=== PATIENT | male | born 1955 | race African-American/Black ===

== ENCOUNTER 2018-01-04 15:28 | Emergency (ER) | payer BC, SELFPAY ==
[2018-01-04 15:28] VITALS: BP 116/76; PULSE 89; RESP 17; TEMP 36.9; O2SAT 99; BMI 24.3
--- NOTE | 2018-01-04 15:42 | ED.VISSUMM ---
- ER Visit Summary Date of Service: 01/04/18 Chief Complaint: Bilateral low back pain History of Present Illness: The patient is a 62 M who presents with bilateral low back pain that started 3 days ago. He states he was lifting pig let us . He denies any bowel bladder dysfunction. He denies saddle anesthesia or paresthesia. He denies foot drop. He denies quadricep weakness going up or down steps. He denies any GI symptoms. He does have history of elevated PSA. He states he does not have prostate cancer. He denies any radicular pain. Please read written note for complete detail Physical Examination: Patient appears in no discomfort. Having him rise from supine to sitting position cause and discomfort and there is hesitation. HEENT exam is unremarkable. Heart is regular without murmur, gallop or rub. S1 and S2 are normal. Lungs are clear to auscultation with good movement of air bilaterally. Abdomen is soft nontender with no palpable cell mass abdominal bruit. Femoral, DP and PT pulses are palpable and symmetric. EHL is intact. Patella and ankle reflex are symmetric with no clonus or Babinski sign. Normal perianal sensation. He has reproducible bilateral low back pain, lumbar sacral region. Straight leg test is negative. Test Results: None are indicated Emergency Department Course and Treatment: Patient was treated with Naprosyn. He asked if x-rays were indicated. He was informed since there is no history of trauma and he reports symptoms for only 3 days based on literature radiologic imaging is not indicated. He was told if he had a history of prostate cancer imaging would be indicated as well as blood tests. Treatment Plan: Prescription for Naprosyn and follow-up with Dr. Shell if no improvement in 5-7 days Disposition: Discharged to home Impression: Acute bilateral lumbar sacral strain secondary to lifting This note was generated with [employer] dictation software. It may contain incorrect words, spelling, and punctuation that were not noted in review of the chart prior to signing ED Disposition - Plan for ED Patient: Disposition: Home or Assisted Living Chief Complaint: Back Instructions: ED Sprain Strain Lumbar Prescriptions: Naproxen [Naprosyn] 500 mg PO BID #14 tab Referrals: Carli Shell MD [Primary Care Provider] - 1 Week if not improving
[2018-01-04] MEDS: Naproxen 250 MG Tablet 500 MG PO (15:54)
== END 2018-01-04 15:55 | disposition home or self-care (01) ==
PROVIDERS: Emergency Provider Emergency Medicine; Family Provider Internal Medicine; PCP Internal Medicine
DX: S39.012A Strain of muscle, fascia and tendon of lower back, initial encounter (principal); X50.9XXA Other and unspecified overexertion or strenuous movements or postures, initial encounter; Y93.9 Activity, unspecified; Y92.9 Unspecified place or not applicable; I10 Essential (primary) hypertension; E78.00 Pure hypercholesterolemia, unspecified; N40.0 Benign prostatic hyperplasia without lower urinary tract symptoms; Z79.899 Other long term (current) drug therapy; Z72.0 Tobacco use
CPT/HCPCS: 99283

== ENCOUNTER 2018-04-20 07:54 | Emergency (ER) | payer BC, SELFPAY ==
[2018-04-20 07:55] VITALS: PULSE 86; RESP 20; TEMP 37.3; O2SAT 99; BMI 24.3
--- NOTE | 2018-04-20 08:05 | RAD_ITS ---
STUDY: X-RAY - RIGHT KNEE REASON FOR EXAM: Male, 62 years old. Pain since Friday. No known injury. TECHNIQUE: 4 view(s) of the knee. COMPARISON: None. FINDINGS: Normal visualized distal femur. Normal visualized proximal tibia and fibula. Normal proximal tibiofibular articulation. There is mild degenerative arthrosis of the medial femorotibial compartment. Chondrocalcinosis of the medial meniscus. Normal lateral femorotibial compartment. Normal patellofemoral articulation. There are atherosclerotic calcifications. Small joint effusion. RAD/Knee 4 or More Views IMPRESSION: Degenerative arthrosis. Chondrocalcinosis of the medial meniscus. Joint effusion. Electronically Signed: Tristan Gipson MD at 9:01 EDT Tel [phone], Service support ,
[2018-04-20] MEDS: Naproxen 250 MG Tablet 500 MG PO (08:43)
[2018-04-20] MEDS: Triamcinolone Acetonide 40 MG/ML Vial IM (08:46)
[2018-04-20] MEDS: Bupivacaine Mpf 0.5% 30 ML VIAL 10 ML INFILT (08:46)
--- NOTE | 2018-04-20 08:56 | ED.DCSUM_ITS ---
- ER Visit Summary Date of Service: 04/20/18 Chief Complaint: Right knee pain History of Present Illness: The patient is a 62 M presents to the emergency department with 2 days of worsening right knee pain. Patient states he was playing basketball about a week ago. He states that he twisted his ankle. He states that he was babying it. He states he been walking different and began to have some swelling in his right knee. He states over the past 2 days, the swelling and pain is gotten worse. He denies any fevers or chills. He denies any trauma. He does have a history of arthritis. He denies any history of diabetes. Physical Examination: Exam is relatively unremarkable. Patient does have a small effusion of the right knee. Extension and flexion are preserved. The skin is not tense. There is no erythema. There is no cellulitis. Pulses are normal. There is no evidence of septic joint. Test Results: [] Emergency Department Course and Treatment: The patient underwent plain films which demonstrate some arthritis of the knee with a small effusion. I did feel that arthrocentesis with Kenalog and bupivacaine injection we will treat his pain most effectively. The area was prepped in a sterile fashion. I did inject a small amount of bupivacaine into the skin. 18-gauge needle was inserted laterally into the joint space. Fluid was aspirated. There was about 2 cc of blood-tinged synovial fluid. There was no purulence. Strength test was normal. Patient was then injected with 5 cc of a combination of bupivacaine and 40 mg of Kenalog. Within 2 minutes, he had complete resolution of his pain. Grant wrap is placed. At this time, due to the patient is safe for discharge. He will be given outpatient follow-up with orthopedics. Treatment Plan: [] Disposition: [] Impression: 1. Right knee arthritis with effusion 2. Arthrocentesis This note was generated with [employer] dictation software. It may contain incorrect words, spelling, and punctuation that were not noted in review of the chart prior to signing ED Disposition - Plan for ED Patient: Chief Complaint: Lower Extremity Injury Instructions: ED Effusion Knee Prescriptions: Naproxen [Naprosyn] 500 mg PO BID PRN #20 tab Referrals: Boom Winter DO [STAFF PHYSICIAN] -
== END 2018-04-20 09:10 | disposition home or self-care (01) ==
PROVIDERS: Emergency Provider Emergency Medicine; Family Provider Internal Medicine; PCP Internal Medicine
DX: M13.861 Other specified arthritis, right knee (principal); M25.461 Effusion, right knee; I10 Essential (primary) hypertension; E78.00 Pure hypercholesterolemia, unspecified; Z72.0 Tobacco use
CPT/HCPCS: 20610; 73564; 99283

== ENCOUNTER 2018-11-14 20:31 | Emergency (ER) | payer BC, SELFPAY ==
[2018-11-14 20:32] VITALS: BP 138/76; PULSE 93; RESP 18; TEMP 36.6; O2SAT 94; BMI 24.7
--- NOTE | 2018-11-14 20:44 | EKG12_ITS ---
Test Reason : CP/SOB Blood Pressure : / mmHG Vent. Rate : 089 BPM Atrial Rate : 089 BPM P-R Int : 116 ms QRS Dur : 100 ms QT Int : 364 ms P-R-T Axes : 059 049 028 degrees QTc Int : 442 ms Normal sinus rhythm Incomplete right bundle branch block Borderline ECG Confirmed by WAN ESCALANTE, BREONNA ([id number]), international editorial producer TIFF SIERRA ([id number]) on 11/25/2018 1:52:20 PM Referred By: NONI Confirmed By:BREONNA BLAS MD
--- NOTE | 2018-11-14 20:44 | RAD_ITS ---
STUDY: X-RAY CHEST REASON FOR EXAM: Male, 63 years old. Cough. TECHNIQUE: PA and lateral views of the chest. COMPARISON: January 22, 2011 FINDINGS: There is no new focal consolidation. The lungs remain hyperinflated. Normal size heart. Normal mediastinum and lalo. Normal visualized pulmonary arteries. There is atherosclerotic calcification of the aortic arch with tortuosity. Normal visualized thoracic spine. Normal visualized ribs, clavicles, and shoulders. There is no demonstrated abnormality of the visualized soft tissue structures of the upper abdomen. RAD/Chest PA and Lateral IMPRESSION: Stable examination demonstrating no acute cardiopulmonary process. Electronically Signed: Kylie Moya MD at 22:03 EDT Tel , Service support ,
[2018-11-14] MEDS: Albuterol 2.5 MG/3 ML VIAL.NEB. INHALATION (20:53)
[2018-11-14 20:54] VITALS: PULSE 84; RESP 16
--- NOTE | 2018-11-14 20:59 | ED.VIS.GEN ---
History of Present Illness Chief Complaint: Shortness of Breath Informant: Patient Onset: Days - Onset 3 days ago Context: Sudden Onset Timing: Continuous Quality: Patient also reports upper central sharp chest discomfort Location: Respiratory and chest Current Severity: Mild Maximum Severity: Moderate Worsened by: Nothing Relieved by: Nothing Associated Symptoms: Myalgias, runny nose, throat pain and nonproductive cough Narrative: Patient is a 63-year-old male who presents with runny nose, sore throat nonproductive cough for the past 3-4 days. He can planes of dyspnea at rest and with activity. His chest discomfort is not positional nor is it related to activity or change in position. Patient denies any history of blood clot in the leg or lung. Patient denies leg pain, swelling discoloration. Patient denies history of coronary disease. Patient denies history of peptic ulcer disease or reflux. Patient did not receive influenza vaccine this year Prior similar symptoms: No Recent Illness/Hospitalization: No Past Medical History - Allergies and Home Meds Allergies/Adverse Reactions: Allergies No Known Allergies Allergy (Verified 11/14/18 20:32) Primary Care Physician: Carli Shell MD [Primary Care Provider] - Prior records reviewed: Yes Surgical History: no surgical history Lives: Spouse/ Significant Other Smoking Status: Current every day smoker Alcohol: None Drugs: None Review of Systems General: Reports: Chills, Fever, Subjective. Denies: Sweats, Weight loss Eyes: Denies: Visual changes - bilaterally, Blurred Vision - bilaterally, Diplopia ENT: Reports: Rhinorrhea, Sore throat. Denies: Bilateral ear pain Cardiovascular: Reports: Chest pain. Denies: Palpitations, Heart racing Respiratory: Reports: Dyspnea - Groups, Cough, Dyspnea on exertion. Denies: Sputum, Orthopnea, Paroxysmal nocturnal dyspnea Gastrointestinal: Denies: Abdominal pain, Nausea, Vomiting, Diarrhea, Melena, Hematochezia Genitourinary: Denies: Dysuria, Hematuria, Frequency Musculoskeletal: Reports: Myalgias. Denies: Arthralgias, Neck pain, Back pain, Swelling Skin: Denies: Rash, Wounds Neurological: Denies: Headache, Weakness, Numbness Allergy: Denies: Uticaria, Swelling of the mouth - Positive pain Physical Exam Vital Signs/Narrative: Vital Signs Temp Pulse Resp BP Pulse Ox 11/14/18 20:54 84 16 11/14/18 20:32 97.9 F 93 18 138/76 H 94 Inital Vital Signs reviewed: Yes General: Well nourished, Well developed, No Acute Distress Head: Normocephalic, Atraumatic Eyes: Perrl, EOMI. Negative for: Pale conjunctiva, Scleral icterus, - ENT: Moist mucous membranes, TM's clear, Nasal congestion. Negative for: No rhinorrhea Neck: Supple, Nontender, No lymphadenopathy, No JVD Cardiovascular: Regular rate, Regular rhythm, No murmurs, Normal S1 Respiratory: No distress, Chest nontender, Wheezing, Decreased Air Movement - Increased expiratory phase. Abdomen: Soft, Nontender, Nondistended, Normal bowel sounds, No masses Back: Nontender, Normal Inspection Extremities: Nontender, No edema Skin: Normal color, No rash. Negative for: Cyanosis Neurological: Alert, Oriented x3, Cranial nerves II-XII grossly intact, Normal Strength, Normal Sensation Psychological: Normal affect, Normal Mood Diagnostic/Tx/Re-eval Chest X-Ray - ED: 2 View, Normal, Heart, Mediastinum, Bony Structures, No Acute Disease, Chronic Changes 11/14/18 20:44 Chest PA and Lateral [RAD] Stat 11/14/18 20:50 Mucosa - Nose Influenza Types A,B Direct FA (RAN) - Final Laboratory Results 11/14/18 11/14/18 21:10 21:10 WBC 5.3 RBC 3.90 L Hgb 13.0 Hct 38.5 L MCV 98.7 H MCH 33.3 H MCHC 33.8 RDW 12.3 RDW Differential 44.8 H Plt Count 212 MPV 10.2 Immature Gran % (Auto) 0.400 Neut % (Auto) 38.1 L Lymph % (Auto) 52.7 H [place] % (Auto) 5.3 Eos % (Auto) 2.5 Baso % (Auto) 1.0 Absolute Neuts (auto) 2.0 Absolute Lymphs (auto) 2.77 Total Counted Not Reportable Sodium 151 H Potassium 3.4 L Chloride 117 H Carbon Dioxide 26.0 Anion Gap 8 BUN 15 Creatinine 0.85 Estim Creat Clear Calc 84.94 Est GFR (MDRD) Af Amer 117 Est GFR (MDRD) Non-Af 96 BUN/Creatinine Ratio 17.6 Glucose 138 H Calcium 8.5 - Medical Decision Making Patient was treated with albuterol aerosol treatment. Chest x-ray was obtained to evaluate for pneumonia. Rapid blood work was obtained to risk stratify patient in the event he has an infiltrate noted on x-ray. With complaints of myalgias and rhinorrhea influenza rapid screen was obtained. This is no evidence of will treat with inhaler and prednisone. ED Disposition - Plan for ED Patient: Disposition: Home or Assisted Living Diagnosis: Bronchitis, acute, with bronchospasm Instructions: ED Bronchitis Asthmatic Prescriptions: Albuterol Inhaler [Ventolin Hfa] 2 puff INHALATION Q4H PRN PRN #1 inhaler PRN Reason: Wheezing Prednisone [Deltasone] 40 mg PO DAILY #10 tab Referrals: Carli Shell MD [Primary Care Provider] - 5-7 Days
[2018-11-14 21:04] VITALS: PULSE 84; RESP 20; O2SAT 95
[2018-11-14 21:21] LABS: Absolute Lymphocyte Count 2.77 X10^3/ul (0.83-4.51); Basophil# 0.05 X10^3/uL; Eosinophil# 0.13 X10^3/uL; Eosinophils% 2.5 % (0-5); Hematocrit 38.5 % (40-54); Lymphocyte # 2.77 X10^3/ul (4.0); Lymphocyte % 52.7 % (19-41); Mean Corp Hgb Conc 33.8 g/gl (32-36); Mean Corpuscular Hgb 33.3 pg (27.0-32.0); Mean Corpuscular Volume 98.7 fL (80-94); Mean Platelet Vol. 10.2 fl (6.2-12.0); Monocyte# 0.28 X10^3/uL; Monocyte% 5.3 % (0-10); Neutrophil # 2.01 X10^3/uL (2.7-7.7); Neutrophil % 38.1 % (47-70); Platelet Count 212 K/mm3 (150-450); RBC Distribution Width CV 12.3 % (11.6-14.6); RBC Distribution Width SD 44.8 fl (35.1-43.9); White Blood Count 5.3 K/mm3 (4.4-11.0)
[2018-11-14 21:22] LABS: POSITIVE COUNT NO; POSITIVE DIFFERENTIAL NO; POSITIVE MORPHOLOGY NO
[2018-11-14 21:33] LABS: Anion Gap 8 (5-15); BUN 15 mg/dL (7-18); BUN/Creat Ratio 17.6 RATIO (10-20); Calcium,Total 8.5 mg/dL (8.5-10.1); Chloride 117 mmol/L (98-107); Creatinine, Serum 0.85 mg/dL (0.70-1.30); EST Glomerular Filtration Rate 96 mL/min (>60); Est Glom Filt Rate - Afr Amer 117 mL/min (>60); Estimated Creatinine Clearance 84.94 ml/min; Glucose 138 mg/dL (74-106); Potassium 3.4 mmol/L (3.5-5.1); Sodium Level 151 mmol/L (136-145)
[2018-11-14 22:01] VITALS: PULSE 85; O2SAT 100
[2018-11-14] MEDS: predniSONE 20 MG Tablet 60 MG PO (22:08)
== END 2018-11-14 22:11 | disposition home or self-care (01) ==
PROVIDERS: Emergency Provider Emergency Medicine; Family Provider Internal Medicine; PCP Internal Medicine
DX: J20.9 Acute bronchitis, unspecified (principal); F17.200 Nicotine dependence, unspecified, uncomplicated
CPT/HCPCS: 71046; 80048; 85025; 87804; 93005; 94640; 99285; A4216

== ENCOUNTER 2019-01-25 12:06 | Emergency (ER) | payer BC, SELFPAY ==
[2019-01-25 12:06] VITALS: BP 157/103; PULSE 89; RESP 17; TEMP 37.2; O2SAT 98; BMI 23.8
[2019-01-25 12:45] VITALS: BP 162/81; PULSE 80; RESP 23; O2SAT 95
--- NOTE | 2019-01-25 13:37 | CT_ITS ---
STUDY: CT BRAIN WITHOUT CONTRAST REASON FOR EXAM: Male, 63 years old. Head injury, fell 2 days ago, nausea/vomiting since yesterday, blurred vision and dizziness today. Hx hypertension. RADIATION DOSAGE (If Supplied By Facility): CTDIvol = ( 60.81 ) mGy, DLP = ( 1158.30 ) mGycm TECHNIQUE: Transaxial CT imaging of the brain was performed without administration of intravenous contrast material. Individualized dose optimization techniques were used for this CT. COMPARISON: None. FINDINGS: There are multiple small areas of focal hyperdensities with surrounding hypodensity at the left occipital lobe the largest measures up to 1.0 cm. There is a 3 mm thick hyperdensity along the tentorial leaflets as well. In the setting trauma, findings are consistent with contusions and subdural hematoma. There is cerebral atrophy with widening of the extra-axial spaces and ventricular dilatation. There are areas of decreased attenuation within the white matter tracts of the supratentorial brain, consistent with microvascular disease changes. There are no findings of an acute ischemic infarction. Normal soft tissue structures. Normal visualized paranasal sinuses. CT/Brain/Head without Contrast IMPRESSION: Findings consistent with left occipital contusions and minimal tentorial subdural hematoma. Follow-up to resolution is recommended. N.B. : The above information has been verbally conveyed by Tisha Ng MD to Dr. Vidal Abebe MD, on 01/25/2019 15:22:20 (ET). Electronically Signed: Tisha Ng MD at 14:32 EDT Tel , Service support ,
--- NOTE | 2019-01-25 13:39 | ED.VISSUMM ---
- ER Visit Summary Date of Service: 01/25/19 Chief Complaint: Fall with recent head injury History of Present Illness: The patient is a 63 M history of hypertension and Paget's disease. Patient fell on Friday he has had against the wall at home. No LOC. He is on no blood thinners. For the mild headache the last several days. Nausea and vomiting x1 on Friday. He denies any other injuries. No neck pain. No numbness or weakness to his upper or lower extremities. Physical Examination: Older male no acute distress vital signs stable afebrile. HEENT exam is a small contusion left posterior septal region of the scalp. No laceration. No bleeding. Pupils round reactive light. No dental injury or facial injury. Neck nontender. Trachea midline. Lungs clear to auscultation. Heart rate rhythm no murmur rate about 80. Chest wall nontender. Abdomen soft and nontender. Normal bowel sounds no peritoneal signs. Pelvic girdle intact. Extremities moves all 4. Neurovascularly intact. Extremities are nontender no deformity. Equal symmetrical tool worker strength. Dorsi plantarflexion intact. Back is nontender. Neurologically is awake and alert. He is moving all 4 extremities. He is answering questions and following commands. He has normal speech. Test Results: CBC with a white count of 9 point chemistries unremarkable normal creatinine gap. PT/INR pending. CT of the patient's brain shows a left occipital cerebral contusion and subdural hematoma. No shift. Left occipital skull fracture along with chronic changes secondary to Paget's disease. Reviewed by me read by the radiologist. CT C-spine shows no acute fracture. Emergency Department Course and Treatment: The patient's headache, head injury and nausea vomiting obtain CT of the brain. I am checking screening labs due to his history of excessive alcohol consumption. Treatment Plan: Repeat exam patient is doing well at 1545 PM. I discussed with both he and his family his CAT scan results and need to transfer to trauma center. He will be sent to [facility]. Awaiting to talk to them. Disposition: I have already spoken to [facility] and the patient be sent up there is a trauma. Impression: Acute fall with head injury Acute traumatic intracranial bleed Acute left-sided occipital skull fracture This note was generated with [employer] dictation software. It may contain incorrect words, spelling, and punctuation that were not noted in review of the chart prior to signing ED Disposition - Plan for ED Patient: Referrals: Carli Shell MD [Primary Care Provider] -
[2019-01-25] MEDS: Acetaminophen 325 MG Tablet 650 MG PO (13:49)
[2019-01-25 14:06] LABS: Absolute Lymphocyte Count 1.63 X10^3/ul (0.83-4.51); Absolute Neutrophil Count 6.6 X10^3/uL (2.0-7.7); Basophil# 0.03 X10^3/uL; Basophil% 0.3 % (0-1); Eosinophils% 1.1 % (0-5); Hematocrit 40.1 % (40-54); Hemoglobin 13.6 g/dl (13.0-16.5); Lymphocyte # 1.63 X10^3/ul (4.0); Lymphocyte % 17.9 % (19-41); Mean Corp Hgb Conc 33.9 g/gl (32-36); Mean Corpuscular Hgb 33.4 pg (27.0-32.0); Mean Corpuscular Volume 98.5 fL (80-94); Mean Platelet Vol. 10.2 fl (6.2-12.0); Monocyte% 7.7 % (0-10); Neutrophil % 72.7 % (47-70); Platelet Count 178 K/mm3 (150-450); RBC Distribution Width CV 12.1 % (11.6-14.6); RBC Distribution Width SD 42.3 fl (35.1-43.9); Red Blood Count 4.07 M/mm3 (4.6-6.2); White Blood Count 9.1 K/mm3 (4.4-11.0)
[2019-01-25 14:10] LABS: POSITIVE COUNT NO; POSITIVE DIFFERENTIAL NO; POSITIVE MORPHOLOGY NO
[2019-01-25 14:14] LABS: Anion Gap 8 (5-15); BUN 19 mg/dL (7-18); BUN/Creat Ratio 20.9 RATIO (10-20); Calcium,Total 8.8 mg/dL (8.5-10.1); Chloride 104 mmol/L (98-107); Creatinine, Serum 0.91 mg/dL (0.70-1.30); EST Glomerular Filtration Rate 89 mL/min (>60); Est Glom Filt Rate - Afr Amer 108 mL/min (>60); Estimated Creatinine Clearance 79.34 ml/min; Glucose 94 mg/dL (74-106); Sodium Level 137 mmol/L (136-145)
[2019-01-25 14:33] VITALS: BP 159/85; PULSE 69; RESP 21; O2SAT 97
--- NOTE | 2019-01-25 15:40 | CT_ITS ---
STUDY: CT CERVICAL SPINE WITHOUT CONTRAST REASON FOR EXAM: Male, 63 years old. Fell 2 days ago and hit left side of head RADIATION DOSAGE (If Supplied By Facility): CTDIvol = ( 26.87 ) mGy, DLP = ( 647.97 ) mGycm TECHNIQUE: High resolution transaxial imaging was performed without contrast material. Sagittal and coronal images were reconstructed. Individualized dose optimization techniques were used for this CT. COMPARISON: None FINDINGS: Normal craniovertebral junction. Degenerative changes are present involving the atlantodental articulation. Normal odontoid process. Normal alignment. Diffuse degenerative disease is present. No acute fractures or dislocations of the cervical spine are seen. Carotid calcifications. A fracture of the left occipital bone is present, better seen on concomitant head CT. Probable Paget disease of the posterior calvarium. CT/Spine Cervical without Contras IMPRESSION: A fracture of the left occipital bone is present, better seen on concomitant head CT. No acute osseous injury is evident involving the cervical spine. Comment: MRI is more sensitive than CT in detecting cord injury, ligament injury, and epidural hematoma. If there is continued clinical concern for any of these entities, MRI correlation should be considered if possible. N.B. : The above information has been verbally conveyed by Joselito Montenegro MD to Dr. Vidal Abebe MD, on 01/25/2019 16:31:24 (ET). Electronically Signed: Joselito Montenegro MD at 16:17 EDT Tel , Service support ,
[2019-01-25 15:41] VITALS: BP 168/87; PULSE 68; RESP 24; O2SAT 96
[2019-01-25 16:08] LABS: International Normalized Ratio 1.1; Prothrombin Time (Protime)PT. 13.8 SECONDS (11.7-14.9)
--- NOTE | 2019-01-25 17:37 | ED.RN ---
[facility] CARE HERE TO TRANSPORT PATIENT, REPORT AND CARE TO THEM, PT STATUS UNCHANGED AT THIS TIME.
[2019-01-25 17:51] VITALS: BP 159/90; PULSE 67; RESP 28; O2SAT 96
== END 2019-01-25 17:53 | disposition short-term general hospital (02) ==
PROVIDERS: Emergency Provider Emergency Medicine; Family Provider Internal Medicine; PCP Internal Medicine
DX: S06.309A Unspecified focal traumatic brain injury with loss of consciousness of unspecified duration, initial encounter (principal); S02.119A Unspecified fracture of occiput, initial encounter for closed fracture; W13.8XXA Fall from, out of or through other building or structure, initial encounter; Y93.9 Activity, unspecified; Y92.009 Unspecified place in unspecified non-institutional (private) residence as the place of occurrence of the external cause; Y99.9 Unspecified external cause status; I10 Essential (primary) hypertension; Z72.0 Tobacco use
CPT/HCPCS: 70450; 72125; 80048; 85025; 85610; 99284; A4216

== ENCOUNTER 2019-05-02 10:29 | Emergency (ER) | payer MEDICAID, SELFPAY ==
[2019-05-02 10:30] VITALS: BP 113/78; PULSE 80; RESP 17; TEMP 37; O2SAT 98; BMI 24.0
--- NOTE | 2019-05-02 10:40 | RAD_ITS ---
STUDY: X-RAY CHEST REASON FOR EXAM: Male, 63 years old. Cough x 1 week. Pain with coughing. TECHNIQUE: PA and lateral views of the chest. COMPARISON: PA and lateral chest x-ray November 14, 2018. FINDINGS: The lungs are clear and deeply expanded. There is prominence of the retrosternal airspace, and an element of obstructive pulmonary disease could be present. There is no demonstrated pleural abnormality. Normal size heart. Normal mediastinum and lalo. Normal visualized pulmonary arteries. There is atherosclerotic calcification of the aortic arch and descending thoracic aorta. There are L2 level minor degenerative changes of the visualized thoracic spine and a slight thoracic levoscoliosis. Normal visualized ribs, clavicles, and shoulders. There is no demonstrated abnormality of the visualized soft tissue structures of the upper abdomen. RAD/Chest PA and Lateral IMPRESSION: Possible obstructive pulmonary disease. No acute infiltrate or CHF. Electronically Signed: Octavio Nieves MD at 12:18 EDT , Service support ,
--- NOTE | 2019-05-02 10:42 | ED.VISSUMM ---
- ER Visit Summary Date of Service: 05/02/19 Chief Complaint: Cough History of Present Illness: The patient is a 63 M the emergency department with a one-week history of cough. He states it started off with a runny nose slight cough and as its progressed he states that he is a very deep cough. He states he cannot get any phlegm up. His chest is become sore due to the coughing. He reports the chest is tender to palpation and coughing and movement makes it worse. He denies any fevers but does note generalized myalgias chills and sweats. No vomiting. He does endorse diarrhea. He is a long-term smoker. He denies any prior diagnoses of COPD. Physical Examination: Afebrile vital signs are stable Gen: Well-nourished well-developed Head: Normocephalic atraumatic Eyes: Perrl EOMI ENT: TMs clear turbinate edema moist mucous membranes Neck: Supple no lymphadenopathy no JVD nontender CVS: Regular rate rhythm no murmurs normal S1-S2 Respiratory: No distress bilateral lower lung johnson demonstrate rhonchi and faint expiratory wheeze chest nontender Abdomen: Soft nontender nondistended normal bowel sounds no masses Back: Nontender Extremity: Nontender no edema Skin: Normal color no rash Neuro: alert orientated ?3 CN II-XII intact normal strength sensation Psych: Normal affect normal mood Test Results: Chest x-rays obtained. No consolidation was noted Emergency Department Course and Treatment: Patient received a DuoNeb. The patient reports significant improvement in his cough and his breathing. His lung sounds are not clear. He is a long-term smoker shows chronic changes in his chest x-ray. I will place him on prednisone albuterol MDI and azithromycin. He was advised that he may start to get bronchitis more often he should talk to his doctor about chronic bronchitis. He should quit smoking. Impression: 1. Acute bronchitis with bronchospasm This note was generated with [employer] dictation software. It may contain incorrect words, spelling, and punctuation that were not noted in review of the chart prior to signing ED Disposition - Plan for ED Patient: Disposition: Home or Assisted Living Instructions: BRONCHITIS with Wheezing (Adult) Prescriptions: Prednisone [Deltasone] 40 mg PO DAILY #10 tab Prescription Printed Albuterol Inhaler [Ventolin Hfa] 2 puff INHALATION Q4H PRN PRN #1 inhaler PRN Reason: Wheezing Prescription Printed Azithromycin [Zithromax Z-Kanu] 250 mg PO UD #1 box Prescription Printed Referrals: Carli Shell MD [Primary Care Provider] - 1 Week if not improving
[2019-05-02] MEDS: Ipratropium/Albuterol Sulfate 3 ML AMPUL.NEB INHALATION (10:47)
[2019-05-02 10:48] VITALS: PULSE 71; RESP 16
[2019-05-02 11:37] VITALS: O2SAT 97
== END 2019-05-02 11:38 | disposition home or self-care (01) ==
LOC: ED 11:30
PROVIDERS: Emergency Provider Emergency Medicine; Family Provider Internal Medicine; PCP Internal Medicine
DX: J20.9 Acute bronchitis, unspecified (principal); R19.7 Diarrhea, unspecified; I10 Essential (primary) hypertension; E78.00 Pure hypercholesterolemia, unspecified; Z72.0 Tobacco use
CPT/HCPCS: 71046; 94640; 99282

== ENCOUNTER → 2019-05-24 09:04 | Outpatient (CLI) | payer MEDICAID, SELFPAY ==
[2019-05-02 10:30] VITALS: BMI 24.0
[2019-05-24 10:14] LABS: Absolute Neutrophil Count 4.1 X10^3/uL (2.0-7.7); Basophil# 0.07 X10^3/uL; Basophil% 0.9 % (0-1); Eosinophil# 0.23 X10^3/uL; Eosinophils% 3.1 % (0-5); Hematocrit 46.1 % (40-54); Hemoglobin 15.3 g/dL (13.0-16.5); Lymphocyte % 32.5 % (19-41); Mean Corp Hgb Conc 33.2 g/dL (32-36); Mean Corpuscular Hgb 32.6 pg (27.0-32.0); Mean Corpuscular Volume 98.1 fL (80-94); Mean Platelet Vol. 10.5 fl (6.2-12.0); Monocyte# 0.54 X10^3/uL; Monocyte% 7.3 % (0-10); NRBC Flagged by Analyzer 0 % (0-5); Neutrophil # 4.12 X10^3/uL (2.7-7.7); Neutrophil % 55.8 % (47-70); Platelet Count 242 K/mm3 (150-450); RBC Distribution Width CV 11.9 % (11.6-14.6); RBC Distribution Width SD 43.8 fl (35.1-43.9); White Blood Count 7.4 K/mm3 (4.4-11.0)
== END ==
PROVIDERS: Family Provider Internal Medicine; PCP Internal Medicine; Referring Provider Specialist; Visit Provider Specialist
DX: J45.50 Severe persistent asthma, uncomplicated (principal); Z91.038 Other insect allergy status
CPT/HCPCS: 36415; 83520; 85025

== ENCOUNTER → 2019-10-12 08:43 | Outpatient (CLI) | payer MEDICARE, SELFPAY ==
[2019-10-12 10:05] LABS: PSA,Total- Diagnostic 2.51 ng/mL (0.0-4.0)
== END ==
PROVIDERS: PCP Internal Medicine; Referring Provider Urology; Visit Provider Urology
DX: R35.1 Nocturia (principal); E29.1 Testicular hypofunction; R97.20 Elevated prostate specific antigen [PSA]
CPT/HCPCS: 36415; 84153; 84403

== ENCOUNTER → 2019-12-15 12:20 | Outpatient (CLI) | payer MEDICARE, SELFPAY ==
[2019-12-15 13:53] LABS: Absolute Lymphocyte Count 2.51 X10^3/uL (0.83-4.51); Basophil# 0.05 X10^3/uL; Basophil% 0.5 % (0-1); Eosinophil# 0.04 X10^3/uL; Eosinophils% 0.4 % (0-5); Hematocrit 45.3 % (40-54); Hemoglobin 14.8 g/dL (13.0-16.5); Lymphocyte # 2.51 X10^3/ul (4.0); Lymphocyte % 27.1 % (19-41); Mean Corp Hgb Conc 32.7 g/dL (32-36); Mean Corpuscular Hgb 32.9 pg (27.0-32.0); Mean Corpuscular Volume 100.7 fL (80-94); Mean Platelet Vol. 10.7 fl (6.2-12.0); Monocyte# 0.61 X10^3/uL; Monocyte% 6.6 % (0-10); NRBC Flagged by Analyzer 0 % (0-5); Neutrophil # 5.99 X10^3/uL (2.7-7.7); Neutrophil % 64.8 % (47-70); Platelet Count 282 K/mm3 (150-450); RBC Distribution Width CV 12.1 % (11.6-14.6); RBC Distribution Width SD 45.4 fl (35.1-43.9); White Blood Count 9.3 K/mm3 (4.4-11.0)
[2019-12-15 14:12] LABS: AST(SGOT) 12 U/L (15-37); Alanine Aminotransfer ALT/SGPT 23 U/L (16-61); Albumin, Serum 3.6 g/dL (3.2-5.0); Alkaline Phosphatase 242 U/L (45-117); Anion Gap 8 (5-15); BUN 14 mg/dL (7-18); Calcium,Total 9.2 mg/dL (8.5-10.1); Chloride 106 mmol/L (98-107); Cholesterol 287 mg/dL (200); Creatinine, Serum 0.88 mg/dL (0.70-1.30); EST Glomerular Filtration Rate 93 mL/min (>60); Est Glom Filt Rate - Afr Amer 112 mL/min (>60); Globulin 3.6 g/dL (2.2-4.2); Glucose 92 mg/dL (74-106); High Density Lipoprotein 97 mg/dL; Potassium 4.1 mmol/L (3.5-5.1); Protein, Total 7.2 g/dL (6.4-8.2); Sodium Level 140 mmol/L (136-145); Triglycerides 98 mg/dL; Very Low Density Lipoprotein 20 mg/dL (5-40)
== END ==
PROVIDERS: PCP Internal Medicine; Referring Provider Internal Medicine; Visit Provider Internal Medicine
DX: E55.9 Vitamin D deficiency, unspecified (principal); I10 Essential (primary) hypertension; R51 Headache; F41.9 Anxiety disorder, unspecified; F32.9 Major depressive disorder, single episode, unspecified; M88.9 Osteitis deformans of unspecified bone; Z12.11 Encounter for screening for malignant neoplasm of colon; E78.2 Mixed hyperlipidemia
CPT/HCPCS: 36415; 80053; 80061; 82274; 82306; 85025

== ENCOUNTER → 2019-12-30 10:47 | Outpatient (CLI) | payer MEDICARE, SELFPAY ==
[2019-12-30 12:13] LABS: AST(SGOT) 15 U/L (15-37); Alanine Aminotransfer ALT/SGPT 34 U/L (16-61); Albumin, Serum 3.7 g/dL (3.2-5.0); Alkaline Phosphatase 225 U/L (45-117); Bilirubin, Direct 0.13 mg/dL (0.00-0.30); Globulin 3.3 g/dL (2.2-4.2)
== END ==
PROVIDERS: PCP Internal Medicine; Referring Provider Clinical Nurse Specialist; Visit Provider Clinical Nurse Specialist
DX: R74.8 Abnormal levels of other serum enzymes (principal)
CPT/HCPCS: 36415; 80076

== ENCOUNTER 2020-01-05 10:52 | Emergency (ER) | payer MEDICARE, SELFPAY ==
[2020-01-05 10:54] VITALS: BP 135/95; PULSE 82; RESP 18; TEMP 36.4; O2SAT 98; BMI 25.0
--- NOTE | 2020-01-05 11:19 | VDLE_ITS ---
Reason For Study: PAIN RIGHT LEFT GSV is normal. GSV is normal. CFV is compressible, spontaneous, phasic, CFV is compressible, spontaneous, phasic, competent and demonstrates normal competent, and demonstrates normal augmentation. augmentation. FV is compressible, spontaneous, phasic, FV is compressible, spontaneous, phasic, competent and demonstrates normal competent and demonstrates normal augmentation. augmentation. POP V is compressible, spontaneous, phasic, POP V is compressible, spontaneous, phasic, competent and demonstrates normal competent and demonstrates normal augmentation. augmentation. T/P Trunk is compressible. T/P Trunk is compressible. PTV is compressible. PTV is compressible. RT PerV is compressible. LT PerV is compressible. Procedure Exam performed portable in ED. A preliminary report was called and/or faxed to ED. Interpretation Summary Deep veins of the lower extremities are bilaterally patent and compressible segmentally. There is no evidence of deep vein thrombosis on either side. Valvular competence appears intact within the proximal deep venous systems bilaterally. The great saphenous veins appear bilaterally patent and compressible segmentally. Ordering Physician: Tima De Souza Referring Physician: MALU ROWE Performed By: Kim Cole, CARMELOCS, RVT
--- NOTE | 2020-01-05 11:23 | ED.VISSUMM ---
- ER Visit Summary Date of Service: 01/05/20 Chief Complaint: Bilateral leg swelling History of Present Illness: The patient is a 64 M who presents with bilateral leg swelling that is been getting worse over the past 10 days. Patient states he went to an emergency department in [place] and was given a prescription for lisinopril to take in addition to his blood pressure medications. Patient was diagnosed with peripheral edema at that time. Patient states the swelling is getting somewhat worse. Patient states he has pain in his right calf with ambulation. Patient states the swelling is worse in his right leg. Patient admits to some tingling in his right leg. Patient denies any fevers. Patient denies any chest pain but admits to some occasional shortness of breath. Physical Examination: Vital signs are stable. Patient is afebrile. Patient is in no acute distress. Oral mucosa is pink and moist. Neck is supple. Trachea is midline. There is no JVD. Heart was regular rate and rhythm. Lungs are clear and equal bilaterally. Abdomen is soft. Bowel sounds are normal. There is no tenderness. Cranial nerves II through XII are intact. There are no focal motor or sensory deficits noted. Extremities are intact. There is 1+ edema of the right ankle and foot and trace edema of the left ankle and foot. There is some mild tenderness over the distal calf on the right. There is no calf tenderness on the left. Strength is 5/5 bilateral in the lower extremities. There are no sensory deficits noted. Pedal pulses are equal bilaterally. Capillary refill is less than 2 seconds in all digits. Test Results: Venous duplex of the lower extremities was obtained. There is no evidence of DVT. Emergency Department Course and Treatment: Patient was instructed to continue to keep his legs elevated. Patient was instructed to continue his medications as previously prescribed. Patient was instructed to follow-up with his primary care physician in 5 to 7 days for further evaluation. Patient understood and was agreeable with the plan. All questions were answered. Disposition: Discharge home Impression: Peripheral edema This note was generated with [employer] dictation software. It may contain incorrect words, spelling, and punctuation that were not noted in review of the chart prior to signing ED Disposition - Plan for ED Patient: Disposition: Home or Assisted Living Diagnosis: Peripheral edema Instructions: ED Peripheral Edema, Bilateral Referrals: Carli Shell MD [Primary Care Provider] - 5-7 Days
[2020-01-05 13:03] VITALS: BP 135/79; PULSE 67; RESP 18; O2SAT 98
== END 2020-01-05 13:24 | disposition home or self-care (01) ==
PROVIDERS: Emergency Provider Emergency Medicine; PCP Internal Medicine
DX: R60.0 Localized edema (principal); I10 Essential (primary) hypertension; F17.210 Nicotine dependence, cigarettes, uncomplicated; R06.02 Shortness of breath
CPT/HCPCS: 93970; 99281; 99282

== ENCOUNTER → 2020-02-23 15:59 | Outpatient (CLI) | payer MEDICARE, SELFPAY ==
[2020-02-22 14:14] VITALS: BMI 24.5
[2020-02-23 17:11] LABS: AST(SGOT) 13 U/L (15-37); Alanine Aminotransfer ALT/SGPT 25 U/L (16-61); Alkaline Phosphatase 150 U/L (45-117); Bilirubin, Direct 0.18 mg/dL (0.00-0.30); Cholesterol 286 mg/dL (200); Globulin 3.4 g/dL (2.2-4.2); High Density Lipoprotein 82 mg/dL; Protein, Total 7.4 g/dL (6.4-8.2); Triglycerides 95 mg/dL; Very Low Density Lipoprotein 19 mg/dL (5-40)
== END ==
LOC: LAB 16:02
PROVIDERS: PCP Internal Medicine; Referring Provider Internal Medicine Cardiovascular Disease; Visit Provider Internal Medicine Cardiovascular Disease
DX: E78.00 Pure hypercholesterolemia, unspecified (principal)
CPT/HCPCS: 36415; 80061; 80076

== ENCOUNTER → 2020-03-08 08:24 | Outpatient (CLI) | payer MEDICARE, SELFPAY ==
[2020-02-22 14:14] VITALS: BMI 24.5
--- NOTE | 2020-03-08 08:28 | ECHOD_ITS ---
Reason For Study: CHF Procedure This was a 2D Doppler, Color Flow transthoracic echocardiogram. Exam performed in department. Left Ventricle Normal size and thickness. The estimated ejection fraction is 65 %. Stage 2 diastolic dysfunction. No regional wall motion abnormalities noted. Right Ventricle Normal size and thickness. Normal systolic function. Atria Normal left atrium. Normal right atrium. Normal atrial septum. Mitral Valve The mitral valve is structurally normal. No prolapse or stenosis seen. Tricuspid Valve Normal tricuspid valve. Trivial tricuspid valve insufficiency. Right ventricular systolic pressure estimated to be 35 mmHg. Aortic Valve Normal aortic valve. Trisinus/trileaflet aortic valve. Pulmonic Valve Normal pulmonic valve. Great Vessels Normal aortic root. Normal arch. Normal inferior vena cava. Inferior vena cava collapse with sniff. Pericardium/Pleural No pericardial effusion. MMode/2D Measurements & Calculations LVIDd: 4.5 cm IVSd: 1.2 cm Ao root diam: 2.7 cm LVIDs: 2.7 cm LVPWd: 0.80 cm RVDd: 3.3 cm FS: 39.3 % LAV(MOD-bp): 41.7 ml LA A4 area: 14.5 cm2 LA dimension(2D): 3.4 cm LAV(MOD-bp) Indexed: 22.4 ml/m2 LAV(MOD-sp2): 52.2 ml LAV(MOD-sp4): 30.6 ml RA A4 area: 13.0 cm2 Time Measurements MV dec time: 0.27 sec Doppler Measurements & Calculations MV E max eloy: 69.1 cm/sec Lat Peak E' Eloy: 12.1 cm/sec Med Peak E' Eloy: 6.8 cm/sec MV A max eloy: 49.7 cm/sec E/E' lat: 5.7 E/E' med: 10.2 MV E/A: 1.4 MV V2 max: 85.0 cm/sec MV P1/2t max eloy: 85.4 cm/sec Ao V2 max: 114.0 cm/sec MV max P.9 mmHg MV P1/2t: 72.9 msec Ao max P.2 mmHg MV V2 mean: 41.3 cm/sec MV dec slope: 343.0 cm/sec2 Ao V2 mean: 70.3 cm/sec MV mean P.83 mmHg Ao mean P.3 mmHg MV V2 VTI: 27.4 cm MVA(P1/2t): 3.0 cm2 Ao V2 VTI: 23.1 cm LV V1 max: 120.0 cm/sec PA V2 max: 71.5 cm/sec TR max eloy: 274.8 cm/sec LV V1 max P.8 mmHg TR max P.2 mmHg LV V1 mean P.2 mmHg LV V1 mean: 66.2 cm/sec LV V1 VTI: 21.4 cm Interpretation Summary The estimated ejection fraction is 65 %. Stage 2 diastolic dysfunction. Trivial tricuspid valve insufficiency. Right ventricular systolic pressure estimated to be 35 mmHg. Compared to echo report dated 02/07/2014, LV function has remained the same, RVSP is increased from 28 to 35 mmHg. Ordering Physician: Homero Dumont Referring Physician: Carli Shell Performed By: Farzaneh Hager RVT, RDCS and Student
== END ==
LOC: CVS 08:28
PROVIDERS: PCP Internal Medicine; Referring Provider Internal Medicine Cardiovascular Disease; Visit Provider Internal Medicine Cardiovascular Disease
DX: I10 Essential (primary) hypertension (principal); I25.10 Atherosclerotic heart disease of native coronary artery without angina pectoris; E78.5 Hyperlipidemia, unspecified; I65.29 Occlusion and stenosis of unspecified carotid artery
CPT/HCPCS: 93306

== ENCOUNTER → 2020-03-13 06:03 | Outpatient (CLI) | payer MEDICARE, SELFPAY ==
[2020-02-22 14:14] VITALS: BMI 24.5
--- NOTE | 2020-03-13 10:27 | STRESSREP ---
Stress Test Report Pharmacologic myocardial perfusion stress test. 64-year-old man with a history of coronary artery disease for preop cardiac evaluation. Stress protocol: Resting EKG demonstrates sinus bradycardia with a rate of 59 bpm normal intervals are noted resting blood pressure is 140/72 mmHg. 0.4 mg of regadenoson was infused per usual protocol followed by rapid intravenous saline flush injection continuous EKG monitoring was performed. The maximum heart rate attained was 83 bpm which was 1 metabolic equivalent. The peak blood pressure 140/72 mmHg. At rest there were no ST or T wave changes noted to suggest abnormal flow reserve. At peak infusion no changes were noted to suggest abnormal flow reserve. Myocardial perfusion protocol. 11.8 mCi of technetium 99m sestamibi was injected at rest. 0.4 mg of regadenoson was infused per usual protocol. At peak infusion 33.6 mCi of technetium 99m sestamibi was injected stress images were obtained stress and resting images were reconstructed and compared in the short axis vertical and horizontal long axis. Gated images were also obtained Perfusion SPECT analysis: Review of the stress images demonstrate normal uptake of tracer noted in all areas of myocardium the resting images similar demonstrate normal uptake of tracer noted in all areas of myocardium. No areas of reversibility are noted suggest ischemia no previous infarct is noted. Gated SPECT analysis: The gated ejection fraction is 66%. Conclusion: Normal pharmacologic myocardial perfusion stress test. Preserved ejection fraction.
== END ==
PROVIDERS: PCP Internal Medicine
DX: I11.0 Hypertensive heart disease with heart failure (principal); I50.9 Heart failure, unspecified; R60.0 Localized edema; I73.9 Peripheral vascular disease, unspecified; I65.29 Occlusion and stenosis of unspecified carotid artery; E78.5 Hyperlipidemia, unspecified
CPT/HCPCS: 78452; 93017; A9500; A4216; J2785

== ENCOUNTER → 2020-06-16 11:11 | Outpatient (CLI) | payer MEDICARE, SELFPAY ==
[2020-02-22 14:14] VITALS: BMI 24.5
[2020-06-16 13:40] LABS: PSA,Total - Annual Screen 2.48 ng/mL (0.00-4.00)
== END ==
PROVIDERS: PCP Internal Medicine; Referring Provider Urology; Visit Provider Urology
DX: Z12.5 Encounter for screening for malignant neoplasm of prostate (principal)
CPT/HCPCS: 36415; 84153; G0103

== ENCOUNTER 2020-10-16 14:23 | Emergency (ER) | payer MEDICARE, SELFPAY ==
[2020-08-28 11:24] VITALS: BMI 25.5
[2020-10-16 14:24] VITALS: BP 123/68; PULSE 76; RESP 15; TEMP 37.1; O2SAT 97; BMI 25.6
--- NOTE | 2020-10-16 14:56 | ED.VIS.GEN ---
History of Present Illness Chief Complaint: Complaint Detail of Chief Complaint: Nose hematuria and clots Informant: Patient, Significant Other Onset: Hours Context: Sudden Onset Timing: Intermittent Quality: Painful gross hematuria Location: Current Severity: - - No discomfort presently Maximum Severity: Moderate Worsened by: Urination Relieved by: Nothing Associated Symptoms: On baby aspirin for prior strokes Narrative: Patient elderly male who presents with painful gross hematuria. First episode occurred 1.5 hours ago. Second episode occurred 20 minutes prior to arrival. and patient states he had large clots with second episode. He is on aspirin. He is on no other antiplatelet and he is on no anticoagulant. He denies bruise easily. Denies blood in his stool or black/maroon-colored stool. Denies bleeding from his gums. Denies bruising easily. He does have history of peripheral arterial disease with multiple stents lower extremities and status post carotid enterectomy. Prior similar symptoms: No Recent Illness/Hospitalization: No - Past Medical History (1) Carotid artery stenosis Status: Chronic Comment: Left internal carotid artery 0-19% stenosis, left external carotid artery occluded at origin, reconstituted proximal, and right internal carotid artery 40-59% stenosis noted on 08/16/2020; (2) Essential hypertension Status: Chronic (3) Hyperlipidemia Status: Chronic (4) Peripheral vascular disease Status: Chronic Comment: Bilateral common iliac artery stenting with 8x38 iCAST, left external iliac artery stenting with [id number] Epic and 8x100 Viabahn , right external iliac artery stenting with [id number] Epic on 04/04/2020; Past Medical History - Allergies and Home Meds Allergies/Adverse Reactions: Allergies No Known Allergies Allergy (Verified 10/16/20 14:23) Primary Care Physician: Carli Shell MD [Primary Care Provider] - Surgical History: noncontributory - Multiple stents right and left lower extremity and left carotid endarterectomy Lives: Spouse/ Significant Other Smoking Status: Former smoker Alcohol: None Drugs: None Review of Systems General: Denies: Chills, Fever, Malaise, Sweats ENT: Denies: Bilateral ear pain, Rhinorrhea, Sore throat Cardiovascular: Denies: Chest pain, Palpitations Respiratory: Denies: Dyspnea, Cough, Dyspnea on exertion Gastrointestinal: Denies: Abdominal pain, Nausea, Vomiting, Diarrhea, Melena, Hematochezia Genitourinary: Reports: Dysuria, Hematuria. Denies: Frequency, -, - Skin: Denies: Rash, Wounds Neurological: Denies: Weakness Endocrine: Denies: Polyuria, Polydipsia Hematologic: Denies: Easy bruising, Easy bleeding Physical Exam Vital Signs/Narrative: Vital Signs Temp Pulse Resp BP Pulse Ox 10/16/20 14:24 98.7 F 76 15 123/68 H 97 Inital Vital Signs reviewed: Yes General: Well nourished, Well developed, No Acute Distress Head: Normocephalic, Atraumatic Eyes: Perrl, EOMI. Negative for: Pale conjunctiva, Scleral icterus ENT: Moist mucous membranes, No rhinorrhea Neck: Supple, Nontender, No lymphadenopathy, No JVD, - - Well-healed left carotid endarterectomy scar noted. Cardiovascular: Regular rate, Regular rhythm, No murmurs Respiratory: No distress, CTA bilaterally, Chest nontender Abdomen: Soft, Nontender, Nondistended, Normal bowel sounds Back: Nontender, Normal Inspection Extremities: Nontender, No edema Skin: Normal color, No rash Neurological: Alert, Oriented x3, Cranial nerves II-XII grossly intact, Normal Strength, Normal Sensation Psychological: Normal affect Diagnostic/Tx/Re-eval Laboratory Results 10/16/20 10/16/20 10/16/20 15:40 15:40 15:40 WBC 9.5 RBC 4.43 L Hgb 13.8 Hct 42.9 MCV 96.8 H MCH 31.2 MCHC 32.2 RDW Std Deviation 43.5 RDW Coeff of Dyan 12.2 Plt Count 260 MPV 10.8 Immature Gran % (Auto) 0.300 Neut % (Auto) 66.3 Lymph % (Auto) 25.2 [place] % (Auto) 7.4 Eos % (Auto) 0.3 Baso % (Auto) 0.5 Absolute Neuts (auto) 6.3 Absolute Lymphs (auto) 2.38 Nucleated RBC % 0 Sodium 141 Potassium 3.7 Chloride 109 H Carbon Dioxide 28.0 Anion Gap 4 L BUN 18 Creatinine 0.89 Estim Creat Clear Calc 78.99 Est GFR (MDRD) Af Amer 110 Est GFR (MDRD) Non-Af 91 BUN/Creatinine Ratio 20.2 H Glucose 90 Calcium 8.9 Total Bilirubin 0.40 AST 19 ALT 47 Alkaline Phosphatase 144 H Total Protein 7.2 Albumin 3.9 Globulin 3.3 Albumin/Globulin Ratio 1.2 Urine Color Brown Urine Clarity Turbid Urine pH 5.0 Ur Specific Hazel 1.020 Urine Protein 100 H Urine Glucose (UA) Normal Urine Ketones 5 H Urine Occult Blood 250 H Urine Nitrite Positive H Urine Bilirubin Negative Urine Urobilinogen 1 H Ur Leukocyte Esterase 500 H Urine RBC > 100 SEEN Urine WBC 10-25 SEEN Ur Squamous Epith Cells 0 SEEN Urine Bacteria RARE Urine Mucus 0 SEEN CBC is normal. Comprehensive metabolic panel was marked for slight elevation in alkaline phosphatase at 144. Urine is remarkable for occult blood, nitrites and leukoesterase. Color is brown and is turbid. Microscopic prescription 100 RBCs 10-25 WBCs with no epithelial cells and rare bacteria. Urine culture was sent. He received a gram of Rocephin in the emergency department. Three-way catheter was placed and urine became very lightly pink tinged after irrigation with 1 L of normal saline. - Medical Decision Making Three-way Oswald was ordered for irrigation since he is passing large clots and having difficulty urinating. CBC to assess H&H and BMP to assess renal function. He has seen a urologist. The urologist is affiliated with [facility]. ED Disposition - Plan for ED Patient: Disposition: Home or Assisted Living Diagnosis: Gross hematuria, Bacteriuria with pyuria Instructions: When to Use Antibiotics, ED Hematuria Prescriptions: Smz/Tmp Ds [Bactrim Ds] 1 tab PO BID #14 tab Transmission Status: Pending to [facility]30 Referrals: Carli Shell MD [Primary Care Provider] - Junior Saeed II, MD [NON-STAFF] - 3-5 Days Additional Instructions: Call your urologist office after you are discharged from the hospital/ER to be seen in 2 to 3 days. Take antibiotics until gone.
[2020-10-16 15:45] LABS: Mucous, Urine 0 SEEN /hpf (<or=2+); Squamous Epithelial Cells - UA 0 SEEN /hpf (0-5)
[2020-10-16 16:06] LABS: Color, Urine Brown (Yellow); Glucose, Dipstick Normal (Normal); Ketone-Dipstick 5 mg/dl (Negative); Leukocyte Esterase-Dipstick 500 /ul (Negative); Nitrite-Dipstick Positive (Negative); Occult Blood-Urine 250 /ul (Negative); Protein-Dipstick 100 mg/dl (Negative); Urine Bilirubin Dipstick Negative (Negative); Urine Clarity Turbid (Clear); Urine Urobilinogen 1 mg/dl (Normal)
[2020-10-16 16:10] LABS: ALB/GLOB Ratio 1.2 RATIO (0.9-2.4); AST(SGOT) 19 U/L (15-37); Alanine Aminotransfer ALT/SGPT 47 U/L (16-61); Albumin, Serum 3.9 g/dL (3.2-5.0); Alkaline Phosphatase 144 U/L (45-117); Anion Gap 4 (5-15); BUN 18 mg/dL (7-18); BUN/Creat Ratio 20.2 RATIO (10-20); Calcium,Total 8.9 mg/dL (8.5-10.1); Chloride 109 mmol/L (98-107); Creatinine, Serum 0.89 mg/dL (0.70-1.30); EST Glomerular Filtration Rate 91 mL/min (>60); Est Glom Filt Rate - Afr Amer 110 mL/min (>60); Estimated Creatinine Clearance 78.99 ml/min; Globulin 3.3 g/dL (2.2-4.2); Glucose 90 mg/dL (74-106); Potassium 3.7 mmol/L (3.5-5.1); Protein, Total 7.2 g/dL (6.4-8.2); Sodium Level 141 mmol/L (136-145)
[2020-10-16 16:27] LABS: Bacteria RARE /hpf (None Seen); Red Blood Cells-Urine > 100 SEEN /hpf (0-5); White Blood Cells 10-25 SEEN /hpf (0-5)
[2020-10-16 16:31] LABS: Absolute Lymphocyte Count 2.38 X10^3/uL (0.83-4.51); Absolute Neutrophil Count 6.3 X10^3/uL (2.0-7.7); Basophil# 0.05 X10^3/uL; Basophil% 0.5 % (0-1); Eosinophil# 0.03 X10^3/uL; Eosinophils% 0.3 % (0-5); Hematocrit 42.9 % (40-54); Hemoglobin 13.8 g/dL (13.0-16.5); Lymphocyte # 2.38 X10^3/ul (4.0); Lymphocyte % 25.2 % (19-41); Mean Corp Hgb Conc 32.2 g/dL (32-36); Mean Corpuscular Hgb 31.2 pg (27.0-32.0); Mean Corpuscular Volume 96.8 fL (80-94); Mean Platelet Vol. 10.8 fl (6.2-12.0); Monocyte% 7.4 % (0-10); NRBC Flagged by Analyzer 0 % (0-5); Neutrophil # 6.27 X10^3/uL (2.7-7.7); Neutrophil % 66.3 % (47-70); Platelet Count 260 K/mm3 (150-450); RBC Distribution Width CV 12.2 % (11.6-14.6); RBC Distribution Width SD 43.5 fl (35.1-43.9); Red Blood Count 4.43 M/mm3 (4.6-6.2); White Blood Count 9.5 K/mm3 (4.4-11.0)
[2020-10-16 16:53] VITALS: BP 190/87; PULSE 69; RESP 16; O2SAT 100
[2020-10-16] MEDS: Ceftriaxone 1 GM/50 ML BAG IV (16:54)
--- NOTE | 2020-10-16 17:23 | ED.RN ---
DR DANIELLE INFORMED OF HYPERTENSION 190/87. PT DENIES PAIN WITH 3WAY CATHETER/SYMPTOMS. PT DOES REPORT SL UNCOMFORTABLE D/T HAVING CATHETER PLACED. DR DANIELLE STATES TO CONTINUE TO MONITOR.
[2020-10-16] MEDS: HYDROcodone Bitartrate/Apap 5/325 Tablet PO (17:56)
[2020-10-16 18:02] VITALS: BP 198/81; PULSE 70; RESP 16
== END 2020-10-16 18:05 | disposition home or self-care (01) ==
PROVIDERS: Emergency Provider Emergency Medicine; PCP Internal Medicine
DX: R31.0 Gross hematuria (principal); R82.71 Bacteriuria; R82.81 Pyuria; I10 Essential (primary) hypertension; E78.5 Hyperlipidemia, unspecified; I73.9 Peripheral vascular disease, unspecified; Z79.82 Long term (current) use of aspirin; Z87.891 Personal history of nicotine dependence
CPT/HCPCS: 80048; 80053; 81001; 85025; 87086; 87088; 96365; 99284; J7050; A4216

== ENCOUNTER 2020-10-17 21:28 | Emergency (ER) | payer MEDICARE, SELFPAY ==
[2020-10-16 14:24] VITALS: BMI 25.6
[2020-10-17 21:30] VITALS: BP 148/87; PULSE 103; RESP 18; TEMP 36; O2SAT 97; BMI 24.3
--- NOTE | 2020-10-17 21:37 | ED.VIS.GEN ---
History of Present Illness Chief Complaint: Complaint Informant: Patient Onset: Today Context: Gradual Onset Timing: Intermittent Current Severity: Moderate Maximum Severity: Moderate Narrative: The patient is a 65-year-old male who presents to the emergency department urinary retention. Patient was actually seen here yesterday. Acute urinary retention. Three-way catheter was placed. He was irrigated with a liter and was feeling improved. The patient was discharged home. He is on antibiotics. He does have follow-up with urology tomorrow. He states that today, he started to have some small clots. Shortly thereafter, nothing was draining from his catheter. He states he was leaking around. He was also having a lot of spasm. He denies nausea or vomiting. He denies fevers or chills. Prior similar symptoms: Yes Recent Illness/Hospitalization: No Past Medical History - Allergies and Home Meds Allergies/Adverse Reactions: Allergies No Known Allergies Allergy (Verified 10/17/20 21:30) Primary Care Physician: Carli Shell MD [Primary Care Provider] - Prior records reviewed: Yes Past Medical History: - - Hypertension, hyperlipidemia Surgical History: noncontributory - Multiple stents right and left lower extremity and left carotid endarterectomy Smoking Status: Former smoker Review of Systems General: Denies: Chills, Fever, Sweats Eyes: Denies: Visual changes - bilaterally, Diplopia ENT: Denies: Rhinorrhea, Sore throat Cardiovascular: Denies: Chest pain, Palpitations Respiratory: Denies: Dyspnea, Cough, Dyspnea on exertion Gastrointestinal: Denies: Abdominal pain, Nausea, Vomiting, Diarrhea, Melena, Hematochezia Genitourinary: Denies: Dysuria, Hematuria, Frequency Musculoskeletal: Denies: Back pain, Extremity Pain Skin: Denies: Rash, Wounds Neurological: Denies: Headache, Weakness, Numbness Physical Exam Vital Signs/Narrative: Vital Signs Temp Pulse Resp BP Pulse Ox 10/17/20 21:30 96.8 F L 103 H 18 148/87 H 97 Inital Vital Signs reviewed: Yes General: Well nourished, Well developed, No Acute Distress Head: Normocephalic, Atraumatic Eyes: Perrl, EOMI ENT: Moist mucous membranes, No rhinorrhea Neck: Supple, Nontender Cardiovascular: Regular rate, Regular rhythm, No murmurs Respiratory: No distress, CTA bilaterally, Chest nontender Abdomen: Soft, Nontender, Nondistended, Normal bowel sounds Back: Nontender, Normal Inspection Extremities: Nontender, No edema Skin: Normal color, No rash Neurological: Alert, Oriented x3, Cranial nerves II-XII grossly intact, Normal Strength, Normal Sensation Psychological: Normal affect, Normal Mood Diagnostic/Tx/Re-eval - Medical Decision Making Patient presents with recurrent urinary retention. He does have a 22 [place] Oswald in. He was leaking around it. The Oswald was irrigated and some small clots came out. The patient was able to urinate through the Oswald with no further pain. It was flushed and easily returned. He is feeling symptomatic improvement. At this point, he will be discharged to follow-up with his urologist in the morning as scheduled. Impression 1. Oswald obstruction ED Disposition - Plan for ED Patient: Disposition: Home or Assisted Living Instructions: ED Urinary Retention, Male Referrals: Carli Shell MD [Primary Care Provider] -
[2020-10-17] MEDS: oxyCODONE 5 MG Tablet PO (21:55)
[2020-10-17 22:36] VITALS: BP 174/92; PULSE 87; RESP 16; TEMP 36.6; O2SAT 98
== END 2020-10-17 22:41 | disposition home or self-care (01) ==
LOC: ED 22:27
PROVIDERS: Emergency Provider Emergency Medicine; PCP Internal Medicine
DX: T83.091A Other mechanical complication of indwelling urethral catheter, initial encounter (principal); R33.9 Retention of urine, unspecified; Y84.6 Urinary catheterization as the cause of abnormal reaction of the patient, or of later complication, without mention of misadventure at the time of the procedure; Y92.9 Unspecified place or not applicable; E78.5 Hyperlipidemia, unspecified; I10 Essential (primary) hypertension; Z87.891 Personal history of nicotine dependence
CPT/HCPCS: 99283

== ENCOUNTER → 2020-10-18 16:13 | Outpatient (CLI) | payer MEDICARE, SELFPAY ==
[2020-10-17 21:30] VITALS: BMI 24.3
[2020-10-18 18:01] LABS: EST Glomerular Filtration Rate 90 mL/min (>60); Est Glom Filt Rate - Afr Amer 109 mL/min (>60)
[2020-10-18 19:02] LABS: BUN 19 mg/dL (7-18)
== END ==
PROVIDERS: PCP Internal Medicine; Visit Provider Urology
DX: R31.0 Gross hematuria (principal)
CPT/HCPCS: 36415; 82565; 84520

== ENCOUNTER → 2020-10-26 06:42 | Outpatient (CLI) | payer MEDICARE, SELFPAY ==
[2020-10-17 21:30] VITALS: BMI 24.3
--- NOTE | 2020-10-26 06:46 | CT_ITS ---
STUDY: CT ABDOMEN AND PELVIS WITH AND WITHOUT CONTRAST REASON FOR EXAM: Male, 65 years old. HEMATURIA - R31.9 RADIATION DOSAGE (If Supplied By Facility): CTDIvol = ( 14.56 ) mGy, DLP = ( 2142.76 ) mGycm TECHNIQUE: Transaxial images were obtained from the dome of the diaphragm to the symphysis pubis without oral contrast. IV 100mL Isovue-300 was administered. Sagittal and coronal images were reconstructed. Individualized dose optimization techniques were used for this CT. COMPARISON: None. FINDINGS: The visualized lung bases are unremarkable. The visualized portions of the heart are within normal limits. Normal liver. Normal gallbladder and extrahepatic biliary system. Normal spleen. Normal pancreas. Normal bilateral adrenal glands. There is a 4.7 cm x 4.6 cm cyst in the lateral aspect of the midportion of the right kidney. There is a 2 cm x 1.9 cm cyst in the midportion of the left kidney. Mild degree of left perinephric stranding. Normal visualized stomach. Normal small intestine. Normal colon. The appendix is visualized and appears normal. There is diffuse atherosclerotic calcification of the abdominal aorta and its major visceral branches, without a demonstrated aneurysm. Normal inferior vena cava. Normal retroperitoneum. Normal urinary bladder. There is enlargement of the prostate gland. It measures 5.2 sinus by 5.8 cm. This causes indentation at the bladder base. Calcification along the posterior aspect of the left side of the prostate. There is a small umbilical hernia containing fat. Bilateral inguinal hernias left greater than right. Prior vascular surgery in both groins. There are mild degenerative changes of the visualized lumbar spine. Degenerative changes of the sacroiliac joints bilaterally. CT/CT Abd/Pelvis W/WO Contrast IMPRESSION: Bilateral renal cysts. Enlargement of the prostate gland with indentation at the bladder base. Electronically Signed: Tristan Gipson MD at 8:25 EDT , Service support ,
== END ==
PROVIDERS: PCP Internal Medicine; Referring Provider Urology; Visit Provider Urology
DX: R31.9 Hematuria, unspecified (principal)
CPT/HCPCS: 74178; Q9967

== ENCOUNTER → 2020-12-12 11:18 | Outpatient (CLI) | payer MEDICARE, SELFPAY ==
[2020-12-12 12:32] LABS: PSA,Total- Diagnostic 1.86 ng/mL (0.0-4.0)
== END ==
LOC: LAB 11:19
PROVIDERS: PCP Internal Medicine; Referring Provider Urology; Visit Provider Urology
DX: R35.1 Nocturia (principal)
CPT/HCPCS: 36415; 84153

== ENCOUNTER → 2021-05-07 14:38 | Outpatient (CLI) | payer MEDICARE, SELFPAY ==
[2021-05-07 15:35] LABS: PSA,Total- Diagnostic 1.83 ng/mL (0.0-4.0)
== END ==
PROVIDERS: PCP Internal Medicine; Referring Provider Urology; Visit Provider Urology
DX: R35.1 Nocturia (principal); R97.20 Elevated prostate specific antigen [PSA]
CPT/HCPCS: 36415; 84153

== ENCOUNTER 2021-11-16 09:04 | Outpatient (CLI) | payer MEDICARE, SELFPAY | END 2021-11-16 23:59 | disposition home or self-care (01) | LOC: LAB 09:06 | PROVIDERS: PCP Internal Medicine; Referring Provider Urology; Visit Provider Urology | DX: R35.1 Nocturia (principal); Z12.5 Encounter for screening for malignant neoplasm of prostate | CPT/HCPCS: 36415; 84153; G0103 ==

== ENCOUNTER → 2022-05-20 | Outpatient (CLI) | payer MEDICARE, SELFPAY ==
[2022-05-20 11:45] LABS: PSA,Total- Diagnostic 1.05 ng/mL (0.0-4.0)
== END | disposition home or self-care (01) ==
LOC: LAB 10:21
PROVIDERS: PCP Internal Medicine; Referring Provider Urology; Visit Provider Urology
DX: C61 Malignant neoplasm of prostate (principal)
CPT/HCPCS: 36415; 84153

== ENCOUNTER → 2023-04-02 | Outpatient (CLI) | payer MEDICARE, SELFPAY ==
[2023-04-02 13:17] LABS: Anion Gap 4 (5-15); BUN 20 mg/dL (7-18); Calcium,Total 9.6 mg/dL (8.5-10.1); Chloride 109 mmol/L (98-107); Creatinine, Serum 0.95 mg/dL (0.70-1.30); EST Glomerular Filtration Rate 83 mL/min (>60); Est Glom Filt Rate - Afr Amer 101 mL/min (>60); Glucose 97 mg/dL (74-106); PSA,Total- Diagnostic 1.07 ng/mL (0.0-4.0); Potassium 4.1 mmol/L (3.5-5.1); Sodium Level 139 mmol/L (136-145)
== END | disposition home or self-care (01) ==
LOC: LAB 11:47
PROVIDERS: PCP Internal Medicine; Referring Provider Urology; Visit Provider Urology
DX: R35.1 Nocturia (principal); R63.4 Abnormal weight loss
CPT/HCPCS: 36415; 80048; 84153

== ENCOUNTER → 2023-04-23 | Outpatient (CLI) | payer MEDICARE, SELFPAY ==
--- NOTE | 2023-04-23 18:47 | CT_ITS ---
EXAM: CT abdomen and pelvis with contrast. HISTORY: hematuria, abnormal weight loss TECHNIQUE: CT Abdomen And Pelvis W/ Contrast Injection. A radiation dose optimization technique was used for this scan. COMPARISON: CT abdomen pelvis October 26, 2020. LIMITATIONS: None. LOWER CHEST: Normal. LIVER: Normal. GALLBLADDER: Normal. BILE DUCTS: Normal. PANCREAS: Normal. SPLEEN: Normal. ADRENAL GLANDS: Suspected 7 mm indeterminate left adrenal nodule. KIDNEYS/URETERS/BLADDER: Few cysts in the kidneys bilaterally. No hydronephrosis. No urinary stones. AORTA: Extensive atherosclerotic calcification of the abdominal aorta and iliac arteries. No abdominal aortic aneurysm. Stent grafts in the common and external iliac arteries bilaterally. BOWEL/MESENTERY: A large amount of stool is identified. No evidence of colitis. No small bowel obstruction. Small bilateral inguinal hernias contain fat. Loops of small bowel are at the mouth of the hernias bilaterally. APPENDIX: Normal. PERITONEUM: Normal. REPRODUCTIVE ORGANS: The prostate gland is enlarged measuring 5 cm in transverse dimension.. BONES/SOFT TISSUES: The osseous structures are diffusely heterogeneous with multiple sclerotic and lucent lesions in the pelvic bones and visualized spine, overall similar to the prior study. Lucent lesions or Schmorl''s nodes at the inferior endplates of L2 and L3 are new or increased in size since the prior exam. OTHER: None. CONCLUSION: Bilateral renal cysts. No renal stones or hydronephrosis. Enlarged prostate gland. Evidence of constipation. Osseous structures are heterogeneous diffusely. Metastatic disease is not excluded. Electronically Signed: Ender Tyler MD at 5:10 EDT , CT/Abdomen/Pelvis WITH Contrast IMPRESSION: undefined
== END | disposition home or self-care (01) ==
LOC: CT 18:44
PROVIDERS: PCP Internal Medicine; Referring Provider Urology; Visit Provider Urology
DX: R31.9 Hematuria, unspecified (principal); R63.4 Abnormal weight loss
CPT/HCPCS: 74177; Q9967

== ENCOUNTER → 2023-09-17 | Outpatient (CLI) | payer MEDICARE, SELFPAY ==
--- OUTSIDE RECORDS SUMMARY | 2023-09-17 10:57 | XMS RPT_ITS | CCD ---
Author Name Unknown Address [address] [place] [address] Organization [facility] Care Team Providers Care Studio Musician Name Role Phone Elias Rider II Unavailable Unavailable Update Needed Unavailable Unavailable Malu Rowe Primary Care Provider [facility] Cardiac Respiration, Other Prim caroline Care Provider ARTHUR CARCAMO Attending Unavailable MALU ROWE Primary Care Unavailable Pending Provider Unavailable Unavailable Unavailable Unavailable Malu Rowe MD Primary Care Provider Weston Crespo MD Unavailable Malu Rowe Unavailable Malu Rowe MD Primary Care Provider Weston Crespo MD Unavailable Malu Rowe MD Primary Care Provider Weston Crespo MD Unavailable Paolo AMEZCUA.WAX MACHINE OPERATOR, Kesha Primary Care Provider Malu Rowe Primary Care Unavailable Darlin CASANOVA, Dr. Elias Mak Attending Unavai labfrancisco javier Rider II, Dr. Elias Mak Referring Malu Maxwell Primary Care Unavailable Matthew, Dr. Massiel Koehler Admitting Unaarminda Harrell, Dr. Massiel Koehler Attending Antonellavaanabell Harrell, Dr. Massiel Koehler Referring Unavai lable Harrell, Dr. Massiel Koehler Admitting Unavai lable Harrell, Dr. Massiel Koehler Attending Unavai lable Harrell, Dr. Massiel Koehler Referring Unavai lable Talampas, Malu Primary Care Unavailable Talampas, Malu Primary Care Unavailable MD ELIAS RIDER Attending Unavailabl e MD ELIAS RIDER Referring Unavailabl e Talampas, Malu Primary Care Unavailable MD ELIAS RIDER Attending Unavailabl e MD ELIAS RIDER Referring Unavailabl e Talampas , Malu D Primary Care Provider TalAilyn santoyo MDa D Primary Care Provider Boone BOILER SETTERFaustinaWAX MACHINE OPERATOR, Kesha Primary Care Provider Unavailable Primary Care Provider Unavailabl FRANK Logan Attending Unavailab le BOONE, KESHA Referring Unavailable TALAMPAS, MAUL D Primary Care Unavailable TALAMPAS, MALU D Primary Care Unavailable TIP RAMIREZ Attending Unavailable BOONE, KESHA Attending Unavailable BOONE, KESHA Primary Care Unavailable BOONE, KESHA Primary Care Unavailable BOONE, KESHA Referring Unavailable BOONE, KESHA Primary Care Unavailable BOONE, KESHA Referring Unavailable IRWIN CAMILO Referring Unavailable TALAMPAS, MALU D Primary Care Unavailable HARRELLTONYMASSIEL K Attending Unavailable BOONE, KESHA Attending Unavailable BOONE, KESHA Primary Care Unavailable BOONE, KESHA Referring Unavailable BOONE, KESHA Primary Care Unavailable ROLAN HOWARD Referring Unavailable BOONE, KESHA Primary Care Unavailable ROWSEROLAN Referring Unavailable BOONE, KESHA Primary Care Unavailable TALAMPAS, MALU D Referring Unavailable CARLOS A KENNEDY Attending Unavailable BOONE, KESHA Primary Care Unavailable HARRELLMASSIEL Attending Unavailable BOONE, KESHA Primary Care Unavailable HARRELLTONYMASSIEL K Referring Unavailable HARRELLTONYMASSIEL K Referring Unavailable HARRELLMASSIEL K Attending Unavailable BOONE, KESHA Primary Care Unavailable HARRELL MASSIEL K Referring Unavailable HARRELL MASSIEL K Attending Unavailable BOONE, KESHA Primary Care Unavailable BOONE, KESHA Referring Unavailable BOONE, KESHA Primary Care Unavailable TALAMPAS, MALU D Primary Care Unavailable JESSA GREENE Attending Unavaila ble BOONE, KESHA Referring Unavailable BOONE, KESHA Referring Unavailable BOONE, KESHA Attending Unavailable BOONE, KESHA Primary Care Unavailable HARRELL, MASSIEL K Referring Unavailable BOONE, KESHA Primary Care Unavailable HARRELL, MASSIEL K Attending Unavailable TALAMPAS, MALU D Primary Care Unavailable IGOR JESSA QUENTIN Referring Unavaila ble TALAMPAS, MALU D Primary Care Unavailable KHALIFEH, ALI Referring Unavailable TALAMPAS, MALU D Primary Care Unavailable KHALIFEH, ALI Referring Unavailable KHALIFEH, ALI Attending Unavailable HARRELL, MASSIEL K Referring Unavailable BOONE, KESHA Primary Care Unavailable HARRELL, MASSIEL K Attending Unavailable HARRELL, MASSIEL K Referring Unavailable BOONE, KESHA Primary Care Unavailable HARRELL, MASSIEL K Attending Unavailable HARRELL, MASSIEL K Referring Unavailable BOONE, KESHA Primary Care Unavailable HARRELL, MASSIEL K Attending Unavailable HARRELL, MASSIEL K Referring Unavailable HARRELL, MASSIEL K Attending Unavailable BOONE, KESHA Primary Care Unavailable BOONE, KESHA Referring Unavailable BOONE, KESHA Primary Care Unavailable HARRELL, MASSIEL K Referring Unavailable BOONE, KESHA Primary Care Unavailable HARRELL, MASSIEL K Attending Unavailable TALAMPAS, MALU D Primary Care Unavailable ELIAS RIDER Attending Unavailable TALAMPAS, MALU D Primary Care Unavailable Allergies Allergy Classification Reported Allergen(s) Allergy Type Date of Onset Reaction(s) Facility (20 sources) Seasonal allergy; Translations: [SEASONAL ALLERGIES] Allergy to substance 6 Other: See Comments [facility] Medications Current Medications Medication Drug Class(es) Dates Sig (Normalized) Sig (Original) [id number] 200 actuat albuterol 0.09 mg/actuat metered dose inhaler (20 sources) beta2-Adrenergic Agonist Start: 11-15-2018 take 2 puff(s) by inhalation every four hours as needed albuterol 90 mcg/actuation inhaler Inhale 2 (two) puffs every 4 (four) hours as needed . 0 04/12/2019 Active Completed/Discontinued Medications Medication Drug Class(es) Dates Sig (Normalized) Sig (Original) acetaminophen 325 mg / HYDROcodone bitartrate 5 mg oral tablet (1 source) Opioid Agonist Start: 01-28-2019 take 1 tablet by mouth every six hours as needed for pain HYDROcodone-Acetam inophen 5-325 MG Oral Tablet TAKE 1 TABLET BY MOUTH EVERY SIX HOURS NEEDED FOR PAIN FOR UP TO SE Quantity: 28 Refills: 0 Start : 28-Jan-2019 Active alendronic acid 70 mg oral tablet (20 sources) Bisphosphonate Start: 02-11-2020 take 1 tablet by mouth every week alendronate (FOSAMAX) 70 mg tablet Take 1 tablet by mouth one time a week. Take with a full glass of water, on an empty stomach; do NOT lie down for 30minutes. 12 tablet 0 08/17/2021 Active Problems Active Problems Problem Classification Problem Date Documented Date Episodic/Chronic Abdominal hernia (13 sources) Left inguinal hernia ; Translations: [Inguinal hernia, without mention of obstruction or gangrene, unilateral or unspecified (not specified as recurrent)] Onset: 05-16-2023 05-16-2023 Episodic Acute cerebrovascular disease (2 sources) Hematoma of subdural space of neuraxis; Translations: [Subdural hematoma (HCC)] Onset: 03-25-2023 03-25-2023 Chronic Anxiety disorders (20 sources) Mixed anxiety and depressive disorder; Translations: [Anxiety disorder, unspecified] Onset: 11-07-2022 04-08-2020 Chronic Aortic and peripheral arterial embolism or thrombosis (14 sources) Occlusion of aortoiliac artery; Translations: [Other arterial embolism and thrombosis of abdominal aorta] Onset: 01-21-2023 01-21-2023 Chronic Blindness and vision defects (20 sources) Bilateral visual impairment; Translations: [Unqualified visual loss, both eyes] Onset: 01-29-2019 01-29-2019 Chronic Cancer of prostate (18 sources) Adenocarcinoma of prostate; Translations: [Malignant neoplasm of prostate] Onset: 03-25-2023 03-25-2023 Chronic Cataract (20 sources) Bilateral senile combined form cataracts of eyes; Translations: [Combined forms of age-related cataract, bilateral] Onset: 01-29-2019 01-29-2019 Chronic Disorders of lipid metabolism (20 sources) Mixed hyperlipidemia; Translations: [Mixed hyperlipidemia] Onset: 08-30-2022 04-08-2020 Chronic Essential hypertension (20 sources) Essential hypertension; Translations: [Essential (primary) hypertension] Onset: 11-07-2022 02-26-2021 Chronic Genitourinary symptoms and ill-defined conditions (12 sources) Urinary incontinence; Translations: [Urinary incontinence, unspecified] Onset: 05-16-2023 05-16-2023 Chronic Genitourinary symptoms and ill-defined conditions (20 sources) Nocturia; Translations: [Urgent desire to urinate] Onset: 05-16-2023 05-16-2023 Episodic Glaucoma (20 sources) Ocular hypertension; Translations: [Ocular hypertension, bilateral] Onset: 01-29-2019 01-29-2019 Chronic Hyperplasia of prostate (17 sources) Benign prostatic hyperplasia; Translations: [Hypertrophy (benign) of prostate with urinary obstruction and other lower urinary tract symptoms (LUTS)] Onset: 11-07-2022 11-12-2022 Chronic Intracranial injury (1 source) Hematoma of subdural space of neuraxis; Translations: [Traumatic subdural hemorrhage with loss of consciousness of unspecified duration, initial encounter] Episodic Mood disorders (20 sources) Recurrent depression; Translations: [Major depressive disorder, recurrent, in remission, unspecified] Onset: 02-26-2021 02-26-2021 Chronic Mood disorders (1 source) Mood disorders; Translations: [Depression, unspecified] Onset: 11-07-2022 Nutritional deficiencies (20 sources) Vitamin D deficiency; Translations: [Vitamin D deficiency, unspecified] Onset: 02-26-2021 02-26-2021 Chronic Occlusion or stenosis of precerebral arteries (20 sources) Bilateral stenosis of carotid arteries; Translations: [Occlusion and stenosis of bilateral carotid arteries] Onset: 03-24-2020 06-21-2020 Chronic Other aftercare (1 source) termite treater (current) use of antithrombotics/antip latelets; Translations: [termite treater (current) use of antithrombotics/antip latelets] Onset: 11-07-2022 Episodic Other aftercare (1 source) Patient encounter status; Translations: [jail (current) use of antithrombotics/antip latelets] 11-12-2022 Episodic Other and ill-defined cerebrovascular disease (20 sources) Cerebral atherosclerosis; Translations: [Cerebral atherosclerosis] Onset: 03-31-2020 03-31-2020 Chronic Other and ill-defined cerebrovascular disease (15 sources) Intracranial aneurysm; Translations: [Cerebral aneurysm, nonruptured] Onset: 01-21-2023 01-21-2023 Chronic Other bone disease and musculoskeletal deformities (20 sources) Osteitis deformans; 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] Onset: 10-25-2016 04-08-2020 Chronic Other bone disease and musculoskeletal deformities (2 sources) Osteitis deformans of unspecified bone; 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] Onset: 07-11-2023 Chronic Other circulatory disease (2 sources) Vascular disorder; Translations: [Unspecified disorder of circulatory system] Episodic Other circulatory disease (1 source) Personal history of transient ischemic attack (TIA), and cerebral infarction without residual deficits; Translations: [Prsnl hx of TIA (TIA), and cereb infrc w/o resid deficits] Onset: 11-07-2022 Episodic Other circulatory disease (1 source) History of cerebrovascular disease; Translations: [Personal history of transient ischemic attack (TIA), and cerebral infarction without residual deficits] 11-12-2022 Episodic Other endocrine disorders (13 sources) Male hypogonadism; Translations: [Other testicular hypofunction] Onset: 05-16-2023 05-16-2023 Chronic Other eye disorders (20 sources) Optic cupping; Translations: [Glaucomatous optic atrophy, bilateral] Onset: 01-29-2019 01-29-2019 Chronic Other eye disorders (4 sources) Tear film insufficiency; Translations: [Dry eye syndrome of bilateral lacrimal glands] Episodic Other eye disorders (3 sources) Meibomian gland dysfunction of bilateral eyes; Translations: [Meibomian gland dysfunction right eye, upper and lower eyelids] Episodic Other liver diseases (3 sources) Alkaline phosphatase raised; Translations: [Abnormal levels of other serum enzymes] 03-27-2023 Episodic Other liver diseases (1 source) Abnormal levels of other serum enzymes; Translations: [Elevated alkaline phosphatase level] Onset: 05-01-2023 Episodic Other male genital disorders (1 source) Impotence; Translations: [Erectile dysfunction] Chronic Other male genital disorders (14 sources) Male erectile dysfunction, unspecified; Translations: [Erectile dysfunction] Onset: 05-16-2023 05-16-2023 Chronic Other nutritional; endocrine; and metabolic disorders (3 sources) Weight loss; Translations: [Abnormal weight loss] 03-25-2023 Episodic Peripheral and visceral atherosclerosis (20 sources) Peripheral vascular disease, unspecified; Translations: [Peripheral vascular disease, unspecified] Onset: 03-25-2020 03-26-2020 Chronic Residual codes; unclassified (1 source) Presence of other specified functional implants; Translations: [Presence of other specified functional implants] Onset: 09-26-2022 Chronic Residual codes; unclassified (2 sources) Peripheral edema; Translations: [Peripheral edema] Episodic Residual codes; unclassified (1 source) Tobacco use; Translations: [Tobacco use] Onset: 11-07-2022 Episodic Residual codes; unclassified (3 sources) Memory impairment; Translations: [Other amnesia] 03-25-2023 Episodic Residual codes; unclassified (1 source) Tobacco use and exposure - finding; Translations: [Tobacco use] 11-12-2022 Episodic Substance-related disorders (1 source) Nicotine dependence, unspecified, uncomplicated; Translations: [Nicotine dependence, unspecified, uncomplicated] Onset: 09-26-2022 Chronic Past or Other Problems Problem Classification Problem Date Documented Date Episodic/Chronic Blindness and vision defects (20 sources) Right homonymous hemianopsia; Translations: [Homonymous bilateral field defects, right side] Onset: 01-29-2019 01-29-2019 Episodic Crushing injury or internal injury (20 sources) Injury of iliac artery; Translations: [Injury of left iliac artery, initial encounter] Onset: 04-04-2020 04-08-2020 Episodic Immunizations and screening for infectious disease (6 sources) Vaccination needed; Translations: [Encounter for immunization] Onset: 03-25-2023 Episodic Other aftercare (1 source) jail (current) use of anticoagulants; Translations: [jail (current) use of anticoagulants] Onset: 09-26-2022 Episodic Other circulatory disease (20 sources) History of cerebral hemorrhage; Translations: [Personal history of other diseases of the circulatory system] Onset: 01-25-2019 06-21-2020 Episodic Other circulatory disease (20 sources) History of cerebrovascular accident; Translations: [Personal history of transient ischemic attack (TIA), and cerebral infarction without residual deficits] Onset: 03-31-2020 03-31-2020 Episodic Other circulatory disease (1 source) Unspecified disorder of circulatory system; Translations: [Vasculopathy] Onset: 01-21-2023 Episodic Other eye disorders (20 sources) H/O: R cataract extraction; Translations: [Cataract extraction status, right eye] Onset: 11-08-2022 Episodic Other eye disorders (19 sources) H/O: L cataract extraction; Translations: [Cataract extraction status, left eye] Onset: 11-08-2022 Episodic Other eye disorders (1 source) Cataract extraction status, right eye; Translations: [Status post cataract extraction and insertion of intraocular lens of right eye] Onset: 11-08-2022 Episodic Other eye disorders (1 source) Cataract extraction status, left eye; Translations: [Status post cataract extraction and insertion of intraocular lens of left eye] Onset: 11-08-2022 Episodic Other nutritional; endocrine; and metabolic disorders (1 source) Abnormal weight loss; Translations: [Weight loss] Onset: 03-25-2023 Episodic Other screening for suspected conditions (not mental disorders or infectious disease) (20 sources) Raised prostate specific antigen; Translations: [Patient encounter status] Onset: 05-02-2017 05-02-2017 Episodic Other skin disorders (20 sources) Facial swelling ; Translations: [Localized swelling, mass and lump, head] Onset: 04-05-2020 04-08-2020 Episodic Residual codes; unclassified (1 source) Other amnesia; Translations: [Memory difficulties] Onset: 03-25-2023 Episodic NEGATED: Highlighted row has not occurred!Residual codes; unclassified (2 sources) Disease Episodic Results Test Name Value Interpretation Reference Range Facil ity Vital Signs Date Time Vital Sign Value Performing Clinician Facility 07-11-2023 10:44-0500 Body mass index (BMI) [Ratio] 23.34 kg/m2 Frank Cano [facility] Work Phone: [facility] 07-11-2023 10:44-0500 Body weight 69.63 kg Frank Cano [facility] Work Phone: [facility] 07-11-2023 10:44-0500 Diastolic blood pressure 74 mm[Hg] Frank Cano DIGITAL MEDIA INTERN Work Phone: [facility] 07-11-2023 10:44-0500 Heart rate 69 /min Frank Cano [facility] Work Phone: [facility] 07-11-2023 10:44-0500 Systolic blood pressure 111 mm[Hg] Frank Cano [facility] Work Phone: [facility] 04-25-2023 10:38-0400 Body weight 69.85 kg Kesha Boone BOILER SETTER.WAX MACHINE OPERATOR Work Phone: [facility] 04-25-2023 10:38-0400 Diastolic blood pressure 66 mm[Hg] Kesha Boone BOILER SETTER.WAX MACHINE OPERATOR Work Phone: [facility] 04-25-2023 10:38-0400 Heart rate 64 /min Kesha Boone BOILER SETTER.WAX MACHINE OPERATOR Work Phone: [facility] 04-25-2023 10:38-0400 Respiratory rate 16 /min Kesha Boone BOILER SETTER.WAX MACHINE OPERATOR Work Phone: [facility] 04-25-2023 10:38-0400 Systolic blood pressure 118 mm[Hg] Kesha Boone BOILER SETTER.WAX MACHINE OPERATOR Work Phone: [facility] 03-25-2023 14:57-0400 Body weight 69.85 kg Kesha Boone BOILER SETTER.WAX MACHINE OPERATOR Work Phone: [facility] 03-25-2023 14:57-0400 Diastolic blood pressure 70 mm[Hg] Kesha Boone BOILER SETTER.WAX MACHINE OPERATOR Work Phone: [facility] 03-25-2023 14:57-0400 Heart rate 68 /min Kesha Boone BOILER SETTER.WAX MACHINE OPERATOR Work Phone: [facility] 03-25-2023 14:57-0400 Respiratory rate 16 /min Kesha Boone BOILER SETTER.WAX MACHINE OPERATOR Work Phone: [facility] 03-25-2023 14:57-0400 SaO2% (BldA) [Mass fraction] 97 % Kesha Boone BOILER SETTER.WAX MACHINE OPERATOR Work Phone: [facility] 03-25-2023 14:57-0400 Systolic blood pressure 112 mm[Hg] Kesha Boone BOILER SETTER.WAX MACHINE OPERATOR Work Phone: [facility] 01-21-2023 11:32-0400 Diastolic blood pressure 66 mm[Hg] Carlos A Kennedy MD Work Phone: [facility] 01-21-2023 11:32-0400 Heart rate 65 /min Carlos A Kennedy MD Work Phone: [facility] 01-21-2023 11:32-0400 Systolic blood pressure 127 mm[Hg] Carlos A Kennedy MD Work Phone: [facility] 11-04-2022 11:23-0400 Body height 172.4 cm Massiel Harrell MD Work Phone: [facility] 11-04-2022 11:23-0400 Body mass index (BMI) [Ratio] 23.92 kg/m2 Massiel Harrell MD Work Phone: [facility] 11-04-2022 11:23-0400 Body weight 71.1 kg Massiel Harrell MD Work Phone: [facility] 10-28-2022 10:43-0400 Diastolic blood pressure 70 mm[Hg] Massiel Harrell MD Work Phone: [facility] 10-28-2022 10:43-0400 Heart rate 61 /min Massiel Harrell MD Work Phone: [facility] 10-28-2022 10:43-0400 Systolic blood pressure 122 mm[Hg] Massiel Harrell MD Work Phone: [facility] 08-23-2022 07:59-0500 Body weight 73.03 kg Kesha Boone BOILER SETTER.WAX MACHINE OPERATOR Work Phone: [facility] 08-23-2022 07:59-0500 Diastolic blood pressure 62 mm[Hg] Kesha Boone BOILER SETTER.WAX MACHINE OPERATOR Work Phone: [facility] 08-23-2022 07:59-0500 Heart rate 69 /min Kesha Boone BOILER SETTER.WAX MACHINE OPERATOR Work Phone: [facility] 08-23-2022 07:59-0500 Respiratory rate 16 /min Kesha Boone BOILER SETTER.WAX MACHINE OPERATOR Work Phone: [facility] 08-23-2022 07:59-0500 SaO2% (BldA) [Mass fraction] 98 % Kesha Boone BOILER SETTER.WAX MACHINE OPERATOR Work Phone: [facility] 08-23-2022 07:59-0500 Systolic blood pressure 102 mm[Hg] Kesha Boone APRN.WAX MACHINE OPERATOR Work Phone: [facility] 01-30-2022 13:42-0400 Body height 177.8 cm Malu Bradenampas Work Phone: ZP-Ckdpish-Bafyxpr Work Phone: 01-30-2022 13:42-0400 Body mass index (BMI) [Ratio] 22.67 kg/m2 Malu Talampas Work Phone: AP-Etdnxfa-Xlpnilh Work Phone: 01-30-2022 13:42-0400 Body surface area Derived from formula 1.89 m2 Malu Talampas Work Phone: SV-Btliyin-Odctora Work Phone: 01-30-2022 13:42-0400 Body weight 71.67 kg Malu Talampas Work Phone: RD-Dotunuf-Byfivly Work Phone: 01-30-2022 13:42-0400 Respiratory rate 18 /min Malu Bradenampas Work Phone: OM-Vuuyrts-Dviyebm Work Phone: 12-18-2021 13:54-0400 Diastolic blood pressure 68 mm[Hg] Rolan Howard MD Work Phone: [facility] 12-18-2021 13:54-0400 Heart rate 69 /min Rolan Howard MD Work Phone: [facility] 12-18-2021 13:54-0400 Systolic blood pressure 131 mm[Hg] Rolan Howard MD Work Phone: [facility] 05-09-2021 15:00-0400 Body height 177.8 cm Elias Rider II, MD Work Phone: WP-Gavcpcv-Ogmayss Work Phone: 05-09-2021 15:00-0400 Body mass index (BMI) [Ratio] 22.81 kg/m2 Elias Rider II, MD Work Phone: KE-Hmsbuiq-Onajene Work Phone: 05-09-2021 15:00-0400 Body surface area Derived from formula 1.89 m2 Elias Rider II, MD Work Phone: JG-Scjnqtm-Fzfngpc Work Phone: 05-09-2021 15:00-0400 Body weight 72.12 kg Elias Rider II, MD Work Phone: WQ-Bevvmgs-Mxdwbcw Work Phone: 05-09-2021 15:00-0400 Diastolic blood pressure 73 mm[Hg] Elias Rider II, MD Work Phone: AU-Ewngqpo-Jpjrsfh Work Phone: 05-09-2021 15:00-0400 Heart rate 74 /min Elias Rider II, MD Work Phone: FB-Liufmoa-Hlfbkro Work Phone: 05-09-2021 15:00-0400 Systolic blood pressure 133 mm[Hg] Elias Rider II, MD Work Phone: YQ-Onwcdkc-Odnmbiy Work Phone: 01-01-2020 13:29-0400 BP Diastolic 88 mm[Hg] [facility] 01-01-2020 13:29-0400 BP Systolic 170 mm[Hg] [facility] 01-01-2020 13:29-0400 Pulse (Heart Rate) 75 /min [facility] 01-01-2020 13:29-0400 Pulse Oximetry 95 % [facility] 01-01-2020 13:29-0400 Respiratory Rate 16 /min [facility] 01-01-2020 12:18-0400 BMI (Body Mass Index) 25.09 kg/m2 [facility] Pie[facility] 01-01-2020 12:18-0400 Body weight 74.84 kg [facility] [employer] 01-01-2020 12:18-0400 Height 172.7 cm [facility] 01-01-2020 12:17-0400 Body Temperature 99.39 [degF] [facility] 12-27-2019 10:30-0400 BP Diastolic 95 mm[Hg] [facility] 12-27-2019 10:30-0400 BP Systolic 170 mm[Hg] Arthur Carcamo [facility] 12-27-2019 10:30-0400 Pulse (Heart Rate) 72 /min Arthur Carcamo [facility] 12-27-2019 10:30-0400 Pulse Oximetry 99 % Arthur [facility] 12-27-2019 10:30-0400 Respiratory Rate 18 /min Arthur [facility] 12-27-2019 09:36-0400 BMI (Body Mass Index) 25.09 kg/m2 Arthur Carcamo [facility] 12-27-2019 09:36-0400 Body Temperature 99 [degF] Arthur Carcamo [facility] 12-27-2019 09:36-0400 Body weight 74.84 kg Arthur Carcamo [facility] 12-27-2019 09:36-0400 Height 172.7 cm Arthur [facility] 12-08-2019 16:37-0400 BMI (Body Mass Index) 23.82 kg/m2 Elias Rider II NL-Omlsujf-Lrqvrch Work Phone: 12-08-2019 16:37-0400 Body weight 75.3 kg Elias Rider II QM-Fyymhqt-Wgbuj nd Work Phone: 12-08-2019 16:37-0400 BP Diastolic 85 mm[Hg] Elias Rider II AU-Pqtvght-Cymlq nd Work Phone: 12-08-2019 16:37-0400 BP Systolic 126 mm[Hg] Elias Rider II RB-Utvnunp-Gkkzu nd Work Phone: 12-08-2019 16:37-0400 BSA (Body Surface Area) 1.93 m2 Elias Rider II OW-Cqauoev-Pnctxah Work Phone: 12-08-2019 16:37-0400 Height 177.8 cm Elias Rider II [id number] Work Phone: 12-08-2019 16:37-0400 Pulse (Heart Rate) 76 /min Elias Rider II [facility] Work Phone: Encounters Encounter Date Encounter Type Care Provider Facility Start: 08-27-2023 End: 08-27-2023 ambulatory [facility] Ambulatory Start: 07-22-2023 End: 07-22-2023 ambulatory MALU ROWE Facility:[facility] Start: 07-17-2023 ambulatory [facility] Start: 07-11-2023 End: 07-11-2023 ambulatory FRANK CANO [facility] Ambulatory Start: 07-11-2023 End: 07-11-2023 Patient encounter procedure Frank Cano DIGITAL MEDIA INTERN Work Phone: [facility] [place] Procedures Date Procedure Procedure Detail Performing Clinician Start: 05-16-2023 CYSTOSCOPY MALU ROWE Start: 05-01-2023 Us abdominal real time w/image limited Kesha Boone BOILER SETTERFaustinaWAX MACHINE OPERATOR Work Phone: Start: 04-29-2023 End: 04-29-2023 Visual field xm uni/bi w/interp extended exam Massiel Harrell MD Work Phone: Start: 01-21-2023 Ct angiography head w/contrast/noncontrast Rolan Howard MD Work Phone: Start: 01-21-2023 Ct angiography neck w/contrast/noncontrast Rolan Howard MD Work Phone: Start: 01-21-2023 Creatinine [Mass/volume] in Serum or Plasma [facility] Provider Start: 11-08-2022 Fundus photography w/interpretation & report Massiel Harrell MD Work Phone: Start: 08-23-2022 Ecg routine ecg w/least 12 lds i&r only [facility] Provider Start: 06-18-2022 Lipid 1996 panel - Serum or Plasma Janeen Cioce BOILER SETTER.DIGITAL MEDIA INTERN Work Phone: Start: 05-15-2022 Computerized ophthalmic imaging optic nerve Irwin Camilo MD Work Phone: Start: 02-22-2022 [employer] COVID-19 VACCINE, AGE 12+ YR (PECK TOP) Malu Rowe MD Work Phone: Start: 12-26-2021 Computerized ophthalmic imaging optic nerve Irwin Camilo MD Work Phone: Start: 11-06-2021 Visual field xm uni/bi w/interp extended exam Irwin Camilo MD Work Phone: Start: 03-25-2020 History of carotid endarterectomy S/P carotid endarterectomy Kesha Boone BOILER SETTER.WAX MACHINE OPERATOR Work Phone: Start: 01-01-2020 X-ray of right foot Antelmo Raimundo Ortega Work Phone: Start: 01-01-2020 Complete blood count with white cell differential, automated Antelmo Eubanks Shannon Work Phone: Start: 01-01-2020 Creatinine blood Antelmo H Shannon Work Phone: Start: 01-01-2020 Sedimentation rate rbc automated Antelmo Eubanks Shannon Work Phone: Start: 12-27-2019 Radiologic exam chest single view Arthur Carcamo Work Phone: Start: 12-27-2019 LIGHT BLUE TOP Arthur Carcamo Work Phone: Start: 12-27-2019 LIGHT GREEN TOP Arthur Carcamo Work Phone: Start: 12-27-2019 RAINBOW DRAW Arthur Carcamo Work Phone: Start: 12-27-2019 Basic metabolic 1998 panel - Serum or Plasma Arthur Carcamo Work Phone: Start: 12-27-2019 Complete blood count with white cell differential, automated Arthur Carcamo Work Phone: Start: 12-27-2019 Complete blood count with white cell differential, manual Arthur Carcamo Work Phone: Start: 12-27-2019 Natriuretic peptide.B prohormone N-Terminal [Mass/volume] in Serum or Plasma Arthur Carcamo Work Phone: Start: 12-27-2019 Troponin measurement Arthur Carcamo Work Phone: Start: 12-08-2019 Assay of prostate specific antigen total Elias Rider II Start: 10-11-2019 Assay of prostate specific antigen total Elias Rider II Start: 10-11-2019 Assay of testosterone total Elias Rider II Biopsy of prostate Elias Rider II Elbow joint operations Elias Rider II Excision of cyst Elias Rider I I H/O: surgery Status post glau coma surgery Massiel Harrell MD Work Phone: H/O: surgery Status post glau coma surgery Massiel Harrell MD Work Phone: History of carotid endarterectomy S/P carotid endarterectomy Kesha Boone APRN.WAX MACHINE OPERATOR Work Phone: History of carotid endarterectomy S/P carotid endarterectomy Carlos A Kennedy MD Work Phone: Operative procedure on knee Elias Rider II Patch repair of marques tid artery Elias Rider II Plan of Treatment Date Care Activity Detail Author Start: 03-25-2028 PROSTATE CANCER SCREENING DISCUSSION PROSTATE CANCER SCREENING DISCUSSION [facility] Start: 06-18-2027 Lipid 1996 panel - S chau or Plasma Lipid Screening [facility] Start: 06-18-2027 LIPID SCREEN LIPID SCREEN [facility] Start: 08-30-2026 LIPID SCREEN LIPID SCREEN [facility] Start: 03-25-2026 DIABETES SCREEN DIABETES SCREEN [facility] Start: 03-25-2026 Diabetes Screening Diabetes Screenin g [facility] Start: 12-14-2025 DTaP/Tdap/Td Vaccine s (2 - Td or Tdap) DTaP/Tdap/Td Vaccines (2 - Td or Tdap) [facility] Start: 12-14-2025 Tetanus vaccination Tetanus: Every 1 0yrs [facility] Start: 12-14-2025 Urine microalbumin profile [facility] Start: 08-23-2025 DIABETES SCREEN DIABETES SCREEN [facility] Start: 06-18-2025 DIABETES SCREEN DIABETES SCREEN [facility] Start: 12-07-2024 PROSTATE CANCER SCREENING DISCUSSION PROSTATE CANCER SCREENING DISCUSSION [facility] Start: 08-30-2024 DIABETES SCREEN DIABETES SCREEN [facility] Start: 04-25-2024 BP Controlled (<130/80) BP Con trolled (<130/80) [facility] Start: 03-26-2024 COLORECTAL CANCER SCREENING COLORECTAL CANCER SCREENING [facility] Start: 03-26-2024 FECAL OCCULT BLOOD FECAL OCCULT BLOO D [facility] Start: 03-26-2024 Screening for malign ant neoplasm of colon [facility] Start: 03-25-2024 BP CONTROLLED (<130/80) BP CON TROLLED (<130/80) [facility] Start: 02-01-2024 Influenza vaccination Influenza Vacc ine (#1) [facility] Immunizations Immunization Date Immunization Notes Care Provider Fa marry 06-18-2022 COVID-19 booster vaccine, age 12+ yr, bivalent (PFIZER-BIONTECH) Irlanda Canela APRN.DIGITAL MEDIA INTERN Work Phone: [facility] 06-18-2022 pneumococcal (PCV20) vaccine, 20 valent (PREVNAR 20) Irlanda Canela BOILER SETTER.DIGITAL MEDIA INTERN Work Phone: [facility] 02-22-2022 COVID-19 vaccine, ag e 12+ yr (PFIZER-BIONTECH - PECK TOP) Sc Nurse Work Phone: [facility] Work Phone: 09-03-2021 Pfizer Coreas Cap SARS-CoV-2 Massiel Harrell MD Work Phone: [facility] Work Phone: 06-23-2020 influenza, high-dose , quadrivalent vaccine (FLUZONE HIGH DOSE QUADRIVALENT) Kesha Boone APRN.WAX MACHINE OPERATOR Work Phone: [facility] 06-23-2020 influenza virus vacc ine, unspecified formulation Janeen Wolf BOILER SETTER.DIGITAL MEDIA INTERN Work Phone: [facility] 04-05-2020 pneumococcal polysaccharide vaccine, 23 valent Kesha Boone APRN.WAX MACHINE OPERATOR Work Phone: [facility] 12-15-2015 tetanus toxoid, redu huy diphtheria toxoid, and acellular pertussis vaccine, adsorbed Kesha Boone APRN.WAX MACHINE OPERATOR Work Phone: [facility] Payers Date Payer Category Payer Medicare [id number] 2022 Private Health Insurance [id number] 2020 Unknown ANTHSARAHY HART CROS S AND BLUE SHIELD ANTHSARAHY ORTIZ O [id number] 2020-Present [phone] [address] [place] [address] O [id number] 2019 Medicare MEDICARE MEDICAR E PART A & B xxxxxxxxxxx 2019-Present [place] xxxxxxxxxxx [id number] 2019 Medicare MEDICARE MEDICAR E A AND B [id number] 2019-Present [place], [place] [id number] 2019 Medicare [id number] 2019 Medicare [id number] 1954 Unknown [id number] 1954 Unknown [id number] 1954 Unknown [id number] 1069 1954 Unknown [id number] 1069 1954 Unknown [id number] 356 1954 Unknown [id number] 356 1954 Unknown [id number] 903 1954 Unknown [id number] 903 1954 Unknown [id number] 1244 1954 Unknown [id number] Unknown Social History Date Type Detail Facility Start: 12-27-2019 End: 07-11-2023 Tobacco smoking status VTIS Current some day smoker [facility] History of tobacco use Cigarette Smoker [facility] Start: 12-27-2019 End: 07-11-2023 Alcohol intake Ex-drinker (finding) [facility] Start: 12-27-2019 History SDOH Alcohol Frequency 1 [facility] Start: 12-27-2019 Alcohol Comment OCCASIONAL [facility] Start: 1955 Sex Assigned At Not on file O [facility] Start: 08-26-2021 End: 05-19-2023 Exposure to SARS-CoV-2 (event) Not sure [facility] Start: 01-01-2020 Tobacco smoking status [facility] Current every day smoker [facility] Start: 01-01-2020 End: 09-13-2021 Cigarettes smoked current (pack per day) - Reported [facility] Start: 01-01-2020 End: 07-11-2023 Tobacco use and exposure Never used [facility] Start: 03-31-2020 End: 06-18-2022 Tobacco smoking status NHIS Ex-smoker [facility] Start: 12-15-2015 End: 06-18-2022 Tobacco Comment 1 pack per 4 to 5 days (started 10 to 15 years ago)--as of 12/15/15 [facility] History of tobacco use Current smoker [facility] Start: 09-13-2021 End: 03-25-2023 Tobacco use panel [facility] Adult Depression Screening Assessment 0 [facility] Start: 12-27-2019 Gender identity Identifies as male gender (finding) [facility] Start: 12-27-2019 Sexual orientation Heterosexual (fin ding) [facility] Tobacco smoking status VTIS Tobacco smoking consumption unknown [facility] Work Phone: NEGATED: Highlighted row - - [id number] Work Phone: Medical Equipment Procedure Code Equipment Code Equipment Original Text Equipment Identifier Dates Patch Bovine Pericardial Vascular Duravess 8x8 - [id number] Start: 03-24-2020 Patch Thk.5mm Duncan vine Pericardial [id number] Cardiovascular Resilience Durable - [id number] Start: 04-04-2020 Functional Status Date Assessment Result Facility NEGATED: Highlighted row Functional performance Functional status health issues are not documented Disease [id number] Work Phone: Mental Status Date Assessment Result Facility NEGATED: Highlighted row Cognitive function [Interpretation] Cognitive status health issues are not documented Disease [facility] Work Phone: Clinical Notes 04-07-2020 to 07-22-2023 Frank Cano, GRICEL - 07/11/2023 2:06 PM ESTTelephone Encounter - Irlanda Canela APRN.CNP - 05/14/2023 8:42 AM EDTTelephone Encounter - Carolina Ulloa OCCA - 05/12/2023 3:17 PM EDT Note Date & Type Note Facility 07-22-2023 Note HNO ID: [id number] Author: Carlos A Kennedy MD Service: ? Author Type: Physician Type: Progress Notes Filed: 07/22/2023 5:10 PM Note Text: [facility] [place] DEPARTMENT OF VASCULAR SURGERY OUTPATIENT VISIT DATE July 22, 2023 OUTPATIENT VISIT TYPE ESTABLISHED SERVICE DATE: 07/22/2023 SERVICE TIME: 10:45 AM PRIMARY CARE PHYSICIAN: Malu Rowe MD HISTORY OF PRESENT ILLNESS: Mr. Gomez is a 68 year old male who presents today for a vascular surgery follow-up visit regarding bilateral carotid artery disease, now s/p bilateral carotid endarterectomy with patch angioplasties (Left side 03/24/[address] Howard). Patient is also s/p bilateral ileofemoral endarterectomies and profundaplasties with bilateral DANIELLE stenting, L EIA stenting, and R EIA stenting 04/04/[address] Howard. Was last seen in the office with Dr. 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 Patient was counseled regarding smoking cessation and instructed to follow up with Neurology for surveillance of the ophthalmic artery aneurysm and follow up in 6 months with repeat Carotid Artery Duplex US. Patient reports no recent symptoms of claudication in the lower extremities, no recent stroke or TIA, no weakness, numbness, pain, paresthesias. No recent fever, chills, nausea, vomiting. Tolerating regular diet without issue. Smoking 3-4 cigarettes per day, similar to prior visit in January. PAST MEDICAL HISTORY Diagnosis Date Abnormal hemoglobin (Hgb) ([facility]) 04/07/2020 Hx: POD2 labs with drop in hemoglobin to 8.4 from baseline 10.6; transfused 1u PRBC POD2 A: asymptomatic, no associated tachycardia or hypotension P: f/u AM CBC Anxiety and depression BPH (benign prostatic hyperplasia) Carotid artery stenosis, asymptomatic, left COPD (chronic obstructive pulmonary disease) ([facility]) Critical lower limb ischemia ([facility]) Intracerebral aneurysm Legally blind 2019 R eye (had a stroke in that eye) Mixed hyperlipidemia Hyperlipidemia Occlusion of right carotid artery 01/30/[address] Lukasz Beasley Paget disease of bone Stroke (cerebrum) ([facility]) Subdural hematoma ([facility]) 2019 Unspecified essential hypertension Essential hypertension PAST SURGICAL HISTORY Procedure Laterality Date ARTL CATHJ/CANNULJ MNTR/TRANSFUSION SPX PRQ 02/16/2008 CANALOPLASTY W/STENT Right 09/26/2022 Microstent CANALOPLASTY W/STENT Left 11/07/2022 CAROTID ENDARTERECTOMY Bilateral PAST SURGICAL HISTORY OF Left 2012 Lt elbow cyst excision PAST SURGICAL HISTORY OF L knee arthroscopic surgery REMV CATARACT EXTRACAP,INSERT LENS Right 09/26/2022 REMV CATARACT EXTRACAP,INSERT LENS Left 11/07/2022 SN60WF +22.5 D TEAEC W/PATCH GRF CAROTID VERTB SUBCLAV NECK INC 02/16/2008 right CEA SOCIAL HISTORY Social History Tobacco Use Smoking status: Former Packs/day: 0.50 Years: 15.00 Additional pack years: 0.00 Total pack years: 7.50 Types: Cigarettes Smokeless tobacco: Never Tobacco comments: 1 pack per 4 to 5 days (started 10 to 15 years ago)--as of 12/15/15 Vaping Use Vaping Use: Never used Substance Use Topics Alcohol use: Not Currently Drug use: Not Currently MEDICATIONS: finasteride (PROSCAR) 5 mg tablet Take by mouth. citalopram (CELEXA) 40 mg tablet Take 1 tablet by mouth once daily. rosuvastatin (CRESTOR) 40 mg tablet Take 1 tablet by mouth once daily. amLODIPine (NORVASC) 5 mg tablet Take 1 tablet by mouth once daily. tamsulosin (FLOMAX) 0.4 mg TAKE 1 CAPSULE BY MOUTH EVERY DAY AT BEDTIME alendronate (FOSAMAX) 70 mg tablet Take 1 tablet by mouth one time a week. Take with a full glass of water, on an empty stomach; do NOT lie down for 30minutes. trospium (SANCTURA) 20 mg tablet Take 20 mg by mouth twice daily. calcium carbonate-vitamin D3 1,000 mg(2,500 mg)-800 unit tab Take 1,000 mg by mouth once daily. mometasone-formoterol (DULERA) 100-5 mcg/actuation inhaler Inhale 2 Puffs as instructed twice daily. (Patient taking differently: Inhale 2 Puffs as instructed as needed.) albuterol HFA (PROAIR HFA) 90 mcg/actuation inhaler Inhale 2 Puffs as instructed every 4 hours as needed for up to 15 days. ALLERGIES: ALLERGIES Allergen Reactions Seasonal Allergies Other: See Comments Sinus, runny nose PHYSICAL EXAM: BP 134/70 Pulse 65 General: Alert and oriented, No acute distress Integumentary: No rash, no lesions. No jaundice HEENT: EOM, pupils equal, round and reactive. Cardiovascular: Normal S1 AND S2, no rubs, murmurs or gallops. No JVD., Pulse regular. Lungs: Normal breath sounds, no wheezes or crackles. Symmetric chest rise without use of accessory muscles of respiration Abdomen: Not examined Extremities: No deformity, no edema or tenderness, no (more content not included)... [facility] 07-11-2023 History of Present illness Narrative Consult not completed, patient seen by Endocrinology at [facility] with Dr. Greene 07/01/23. Will defer to their office for follow up. documented in this encounter [facility] 07-01-2023 Note HNO ID: [id number] Author: Jessa Greene MD Service: ? Author Type: Physician Type: Progress Notes Filed: 07/02/2023 4:14 PM Note Text: NEW PATIENT VISIT/INITIAL CONSULT NOTE Consulted by: Kesha Boone APRN.WAX MACHINE OPERATOR Chief Complaint: Weight loss HPI: This is a 67 year old male who presents with significant past medical history of Paget's disease of bone and other extensive history including stroke, subdural hematoma, left carotid artery stenosis, critical lower limb ischemia, intracerebral aneurysm, hyperlipidemia, hypertension, COPD, who is presenting for evaluation of weight loss, and elevated alkaline phosphatase level. His Betsey is accompanying him for this visit today. Duration: 6 months Severity: Mild to moderate Weight loss: He reports a loss of 15 pounds in the last 6 months. He denies any changes in appetite, significant fatigue, nausea, vomiting, dizziness/lightheadedness, tremors, palpitations, sugar or salt craving. Patient's reports that he is very nutritious food and normal albumin levels were noted on the most recent lab work. TSH was normal in March 2023. He has no history of thyroid disorder or use of thyroid medications in the past. 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 He has been on Fosamax 70 mg weekly since then, which the reports is for Pagets and not Osteoporosis. Denies any new onset of pain in his skull bone, new onset of pain in any other bone, recent fractures, abdominal pain. Total serum alkaline phosphatase was elevated to <2 times the upper limit of normal on the most recent blood work done in March 2023. Vitamin D levels checked at the same time were within normal limits. PAST MEDICAL HISTORY: PAST MEDICAL HISTORY Diagnosis Date Abnormal hemoglobin (Hgb) (HCC) 04/07/2020 Hx: POD2 labs with drop in hemoglobin to 8.4 from baseline 10.6; transfused 1u PRBC POD2 A: asymptomatic, no associated tachycardia or hypotension P: f/u AM CBC Anxiety and depression BPH (benign prostatic hyperplasia) Carotid artery stenosis, asymptomatic, left COPD (chronic obstructive pulmonary disease) (HCC) Critical lower limb ischemia (HCC) Intracerebral aneurysm Legally blind 2019 R eye (had a stroke in that eye) Mixed hyperlipidemia Hyperlipidemia Occlusion of right carotid artery 01/30/[address] Lukasz Beasley Paget disease of bone Stroke (cerebrum) (HCC) Subdural hematoma (HCC) 2019 Unspecified essential hypertension Essential hypertension PAST SURGICAL HISTORY: PAST SURGICAL HISTORY Procedure Laterality Date ARTL CATHJ/CANNULJ MNTR/TRANSFUSION SPX PRQ 02/16/2008 CANALOPLASTY W/STENT Right 09/26/2022 Microstent CANALOPLASTY W/STENT Left 11/07/2022 CAROTID ENDARTERECTOMY Bilateral PAST SURGICAL HISTORY OF Left 2013 Lt elbow cyst excision PAST SURGICAL HISTORY OF L knee arthroscopic surgery REMV CATARACT EXTRACAP,INSERT LENS Right 09/26/2022 REMV CATARACT EXTRACAP,INSERT LENS Left 11/07/2022 SN60WF +22.5 D TEAEC W/PATCH GRF CAROTID VERTB SUBCLAV NECK INC 02/16/2008 right CEA FAMILY HISTORY: FAMILY HISTORY Problem Relation Age of Onset Heart Mother Glaucoma Brother Heart Brother Cancer Brother metastatic; no primary known SOCIAL HISTORY: Social History Tobacco Use Smoking status: Former Packs/day: 0.50 Years: 15.00 Additional pack years: 0.00 Total pack years: 7.50 Types: Cigarettes Smokeless tobacco: Never Tobacco comments: 1 pack per 4 to 5 days (started 10 to 15 years ago)--as of 12/15/15 Vaping Use Vaping Use: Never used Substance Use Topics Alcohol use: Not Currently Drug use: Not Currently MEDICATIONS: Current Outpatient Medications Medication Sig finasteride (PROSCAR) 5 mg tablet Take by mouth. citalopram (CELEXA) 40 mg tablet Take 1 tablet by mouth once daily. rosuvastatin (CRESTOR) 40 mg tablet Take 1 tablet by mouth once daily. amLODIPine (NORVASC) 5 mg tablet Take 1 tablet by mouth once daily. tamsulosin (FLOMAX) 0.4 mg TAKE 1 CAPSULE BY MOUTH EVERY DAY AT BEDTIME alendronate (FOSAMAX) 70 mg tablet Take 1 tablet by mouth one time a week. Take with a full glass of water, on an empty stomach; do NOT lie down for 30minutes. trospium (SANCTURA) 20 mg tablet Take 20 mg by mouth twice daily. calcium carbonate-vitamin D3 1,000 mg(2,500 mg)-800 unit tab Take 1,000 mg by mouth once daily. mometasone-formoterol (DULERA) 100-5 mcg/actuation inhaler Inhale 2 Puffs as instructed twice daily. (Patient taking differently: Inhale 2 Puffs as instructed as needed.) albuterol HFA (PROAIR HFA) 90 mcg/actuation inhaler Inhale 2 Puffs as instructed every 4 hours as needed for up to 15 days. No current facility-administered medications for this visit. ALLERGIES: ALLERGIES Allergen Reactions Seasonal Allergies Other: See Comments Sinus, runny (more content not included)... [facility] 05-14-2023 Miscellaneous Notes Noted that Dr. Rider is following up on the CT results Additional TC to Dr. Rider's office to inquire about below. Spoke with nurse who stated patient has an appointment with Dr. Rider on 05/19 to discuss results. Patient will also have a procedure that day to look inside his bladder. MAGY Velarde Message left asking Dr. Ryann Rider's office nurse to return call. Dr. Rowe is wanting to know if Dr. Rider is managing results of CT scan dated 04/23/2023. Is he making referral for evaluation to rule out metastases or adrenal nodule work up? documented in this encounter [facility] 05-12-2023 Miscellaneous Notes Appt scheduled w/Endo, 06/12/2023 Estee Carmen LPN 1st attempt Right upper quadrant ultrasound showed mildly coarsened texture of liver. Renal cysts. No gallstones. Recommend he schedule appointment with objects conservator if he is not already done so. Also complete either neuropsychiatric testing or geriatric visit per his preference for decreased memory. His July appt should be with Dr Rowe if willing to change. RESULT: Limitations: Excessive bowel gas. Pancreas: Normal sonographic appearance in the visualized portions. Portions obscured: tail Liver: Echotexture: Mildly coarse Echogenicity: Normal Surface contour: Smooth Lesions: None. Biliary: No intrahepatic biliary duct dilation. CBD: 3 mm in diameter. Gallbladder: Normal caliber -Contents: No cholelithiasis -Wall: 2 mm in thickness -Other: Negative sonographic Rodriguez's sign. Kidneys: The right kidney measures 10.9 cm in length and left kidney measures 10.4 cm in length. There is a 5.6 x 5.1 x 5.6 cm cyst in the interpolar right kidney. A 3.1 x 2.4 x 3.2 cm cyst noted in the in the interpolar left kidney. Spleen: The spleen is normal in size, measuring 9.0 x 3.8 x 9.6 cm. No mass lesion identified documented in this encounter [facility] 05-01-2023 Note HNO ID: [id number] Author: Fidelina Kimball RDMS Service: ? Author Type: [employer] Worker Type: Progress Notes Filed: 05/01/2023 11:56 AM Note Text: Radiology Service Progress Note PATIENT NAME: Denny Gomez DATE OF SERVICE: May 01, 2023 TIME: 11:55 AM PATIENT IDENTITY VERIFICATION COMPLETED USING TWO (2) IDENTIFIERS: Name and Date of confirmed by patient verbally. FALL SCREENING: Has the patient had 2 falls in the last year or 1 fall with injury or currently using an Ambulatory Assistive Device (Walker, Cane, Wheelchair, Crutches, etc.)? No PATIENT GENDER DATA: Male PATIENT RELEVANT IMPLANT DATA REVIEWED: Not Applicable RADIOLOGY DEPARTMENT: Ultrasound PERIPHERAL IV DATA: Not applicable SIGNED BY: Fidelina Kimball RDMS RVT May 01, 2023 11:55 AM [facility] 05-01-2023 History of Present illness Narrative Radiology Service Progress Note PATIENT NAME: Denny Gomez DATE OF SERVICE: May 01, 2023 TIME: 11:55 AM PATIENT IDENTITY VERIFICATION COMPLETED USING TWO (2) IDENTIFIERS: Name and Date of confirmed by patient verbally. FALL SCREENING: Has the patient had 2 falls in the last year or 1 fall with injury or currently using an Ambulatory Assistive Device (Walker, Cane, Wheelchair, Crutches, etc.)? No PATIENT GENDER DATA: Male PATIENT RELEVANT IMPLANT DATA REVIEWED: Not Applicable RADIOLOGY DEPARTMENT: Ultrasound PERIPHERAL IV DATA: Not applicable SIGNED BY: Fidelina Kimball RDMS RVT May 01, 2023 11:55 AM documented in this encounter [facility] 04-29-2023 Note HNO ID: [id number] Author: Massiel Harrell MD Service: ? Author Type: Physician Type: Progress Notes Filed: 04/29/2023 10:33 AM Note Text: ASSESSMENT/PLAN: 1. Homonymous hemianopsia, right - ICD9: 368.46, ICD10: H53.461 (primary diagnosis) History of Carotid endarterectomy a couple of years ago. 2. Primary open angle glaucoma (POAG) of right eye, moderate stage - ICD9: 365.11, 365.72, ICD10: H40.1112 3. Primary open angle glaucoma (POAG) of left eye, moderate stage - ICD9: 365.11, 365.72, ICD10: H40.1122 4. Status post cataract extraction and insertion of intraocular lens of right eye - ICD9: V45.61, V43.1, ICD10: Z98.41, Z96.1 5. Status post cataract extraction and insertion of intraocular lens of left eye - ICD9: V45.61, V43.1, ICD10: Z98.42, Z96.1 Status Post Cataract Surgery with Monofocal Intraocular lens Implant, Canaloplasty with the Omni surgical system, and Hydrus Right Eye (09/26/2022) Status Post Cataract Surgery with Monofocal Intraocular lens Implant, Canaloplasty with the Omni surgical system, and Hydrus Left Eye (11/07/2022) Continue: Systane Complete solution instill 1 drop 3 times daily Both Eyes. See Dr. Isidra Kelsey for refraction and glasses 6. H/O ischemic left MCA stroke - ICD9: V12.54, ICD10: Z86.73 7. Aneurysm of ophthalmic artery - ICD9: 437.3, ICD10: I67.1 -Continue to monitor for any changes in vision. 8. Essential hypertension - ICD9: 401.9, ICD10: I10 Continue to monitor with primary care physician. I have confirmed and edited as necessary the relevant ophthalmic history, review of systems, surgical history, and ophthalmological examination findings as obtained by the ophthalmic technical staff. I have seen and examined Denny Gomez. I have discussed the examination findings, diagnosis, and treatment options with Denny Gomez and/or his family. I have also reviewed and agree with the assessment and plan as stated above and agree with all its relevant components. I gave the patient the opportunity to ask questions about the findings, diagnosis, and treatment options. Massiel Harrell MD [facility] 04-29-2023 Instructions Massiel Harrell MD - 04/29/2023 9:58 AM EDT Continue: Systane Complete solution instill 1 drop 3 times daily Both Eyes. See Dr. Isidra Kelsey for refraction and glasses If you have any questions please contact our office at [phone]. After office hours or on the weekend, please call Dr. Harrell on his cell phone at [phone]. documented in this encounter [facility] 04-29-2023 History of Present illness Narrative ASSESSMENT/PLAN: 1. Homonymous hemianopsia, right - ICD9: 368.46, ICD10: H53.461 (primary diagnosis) History of Carotid endarterectomy a couple of years ago. 2. Primary open angle glaucoma (POAG) of right eye, moderate stage - ICD9: 365.11, 365.72, ICD10: H40.1112 3. Primary open angle glaucoma (POAG) of left eye, moderate stage - ICD9: 365.11, 365.72, ICD10: H40.1122 4. Status post cataract extraction and insertion of intraocular lens of right eye - ICD9: V45.61, V43.1, ICD10: Z98.41, Z96.1 5. Status post cataract extraction and insertion of intraocular lens of left eye - ICD9: V45.61, V43.1, ICD10: Z98.42, Z96.1 Status Post Cataract Surgery with Monofocal Intraocular lens Implant, Canaloplasty with the Omni surgical system, and Hydrus Right Eye (09/26/2022) Status Post Cataract Surgery with Monofocal Intraocular lens Implant, Canaloplasty with the Omni surgical system, and Hydrus Left Eye (11/07/2022) Continue: Systane Complete solution instill 1 drop 3 times daily Both Eyes. See Dr. Isidra Kelsey for refraction and glasses 6. H/O ischemic left MCA stroke - ICD9: V12.54, ICD10: Z86.73 7. Aneurysm of ophthalmic artery - ICD9: 437.3, ICD10: I67.1 -Continue to monitor for any changes in vision. 8. Essential hypertension - ICD9: 401.9, ICD10: I10 Continue to monitor with primary care physician. I have confirmed and edited as necessary the relevant ophthalmic history, review of systems, surgical history, and ophthalmological examination findings as obtained by the ophthalmic technical staff. I have seen and examined Denny Gomez. I have discussed the examination findings, diagnosis, and treatment options with Denny Gomez and/or his family. I have also reviewed and agree with the assessment and plan as stated above and agree with all its relevant components. I gave the patient the opportunity to ask questions about the findings, diagnosis, and treatment options. Massiel Harrell MD documented in this encounter [facility] 04-25-2023 Note HNO ID: [id number] Author: Kesha Boone APRN.WAX MACHINE OPERATOR Service: ? Author Type: Nurse Specialist Type: Progress Notes Filed: 04/25/2023 11:27 AM Note Text: SUBJECTIVE: Shingrix Vaccine(1 of 2) Never done Covid-19 Vaccine(5 - Pfizer series) due on 10/16/2022 Influenza Vaccine(1) due on 04/04/2023 HPI Denny Gomez is a 67 year old male. 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 ACTIVE PROBLEM LIST Anxiety and Depression Mixed Hyperlipidemia Essential Hypertension Paget's Bone Disease Elevated Psa, Less Than 10 Ng/Ml History of Cerebral Hemorrhage Vision Loss, Bilateral Homonymous Hemianopsia, Right Ocular Hypertension, Bilateral Optic Cupping of Both Eyes Combined Forms of Age-Related Cataract of Left Eye Bilateral Carotid Artery Stenosis Pad (Peripheral Artery Disease) ([facility]) S/P Carotid Endarterectomy H/O Ischemic Left Mca Stroke Intracranial Atherosclerosis Atherosclerosis of [place] Artery of Extremity With Intermittent Claudication ([facility]) Iliac Artery Injury, Left, Initial Encounter Facial Swelling Vitamin D Deficiency Recurrent Depressive Disorder, in Remission ([facility]) Primary Open Angle Glaucoma (Poag) of Right Eye, Moderate Stage Primary Open Angle Glaucoma (Poag) of Left Eye, Moderate Stage Hypercholesteremia Status Post Cataract Extraction and Insertion of Intraocular Lens of Left Eye Status Post Cataract Extraction and Insertion of Intraocular Lens of Right Eye 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 Last seen March 2021. CT scan at last visit showed some narrowing of the left internal carotid artery versus difference in measuring techniques or possibly plaque or scar tissue developing in the artery. Subsequently seen by Rolan Howard MDVascular Surgery June 2021. Noted to be feeling well. Noted left CEA on 03/24/2020 and bilateral femoral endarterectomies and iliac stenting on 04/04/2020. No further progression noted of carotid artery stenosis. Advised to follow-up with respect modification follow-up in 6 months with full PVR and carotid duplex. Has urologist in [place] that he has been following with for BPH. Dr. Rider. Continues with alendronate for history disease of the bone. 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 Follows with eye doctor following decreased vision with stroke, improved initially now has leveled off. Still notes decreased right sided peripheral vision. Since last here he has seen Dr. 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 He has undergone glaucoma surgery and cataract surgery. He was rescheduled from Dr. Nicole to another vascular doctor in January. He had a follow-up visit in vascular surgery department January [address] Kennedy for symptomatic carotid artery disease bilateral carotid artery endarterectomy and patch angioplasties. Concern for possible restenosis. Notes history of bilateral femoral endarterectomies with iliac stenting. He was continued on optimal medical therapy with aspirin as well as statin. Cessation of smoking was endorsed. Follow-up with 6-month interval bilateral artery duplex scan. He was referred to neurologist for further surveillance of left ophthalmic artery aneurysm for continued monitoring. Presents today with his that helps with HPI. Today notes vision has stabilized. Notes weight loss despite no change in diet or activity. Notes occasional smoking. No report of cough or shortness of breath. No chest pain. No edema. No reported fevers. No current urinary complaints. Follows with urologist Dr. Elias Rider, currently taking finasteride. Reports previously seen by specialist and diagnosed with Paget's disease. He notes decreased memory, has been repeating himself of late. Not getting lost, able to complete daily activities and IADLs. Today notes weight is stable. Symptoms essentially unchanged. Has not yet scheduled appointment with endocrinology or completed neuropsychiatric testing. HTN: Without report of headache, chest pain, palpitations, dyspnea, peripheral edema, orthopnea, fatigue or PND. Going to [facility]. Last 14 Encounter BP Readings: Date: BP: 04/25/2023 118/66 03/25/2023 112/70 01/21/2023 127/66 10/28/2022 122/70 08/30/2022 122/70 08/23/2022 102/62 08/21/2022 122/70 07/19/2022 130/75 06/18/2022 112/74 12/18/2021 131/68 08/30/2021 124/70 06/12/2021 127/77 03/13/2021 132/73 01/26/2021 122/68 He notes currently with stable anxiety and depression. Doing well on Celexa. Would like to continue unchanged. No counselor, defers for now. No voic (more content not included)... [facility] 04-25-2023 Instructions Kesha Boone APRN.CNS - 04/25/2023 11:18 AM EDT Continue to follow-up with Dr. Rider regarding your prostate. Schedule an appointment with the objects conservator. Complete memory test. Complete right upper quadrant ultrasound. documented in this encounter [facility] 04-25-2023 History of Present illness Narrative SUBJECTIVE: Shingrix Vaccine(1 of 2) Never done Covid-19 Vaccine(5 - Pfizer series) due on 10/16/2022 Influenza Vaccine(1) due on 04/04/2023 HPI Denny Gomez is a 67 year old male. 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 ACTIVE PROBLEM LIST Anxiety and Depression Mixed Hyperlipidemia Essential Hypertension Paget's Bone Disease Elevated Psa, Less Than 10 Ng/Ml History of Cerebral Hemorrhage Vision Loss, Bilateral Homonymous Hemianopsia, Right Ocular Hypertension, Bilateral Optic Cupping of Both Eyes Combined Forms of Age-Related Cataract of Left Eye Bilateral Carotid Artery Stenosis Pad (Peripheral Artery Disease) ([facility]) S/P Carotid Endarterectomy H/O Ischemic Left Mca Stroke Intracranial Atherosclerosis Atherosclerosis of [place] Artery of Extremity With Intermittent Claudication (Hcc) Iliac Artery Injury, Left, Initial Encounter Facial Swelling Vitamin D Deficiency Recurrent Depressive Disorder, in Remission (Hcc) Primary Open Angle Glaucoma (Poag) of Right Eye, Moderate Stage Primary Open Angle Glaucoma (Poag) of Left Eye, Moderate Stage Hypercholesteremia Status Post Cataract Extraction and Insertion of Intraocular Lens of Left Eye Status Post Cataract Extraction and Insertion of Intraocular Lens of Right Eye 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 Last seen March 2021. CT scan at last visit showed some narrowing of the left internal carotid artery versus difference in measuring techniques or possibly plaque or scar tissue developing in the artery. Subsequently seen by Rolan Howard MDVascular Surgery June 2021. Noted to be feeling well. Noted left CEA on 03/24/2020 and bilateral femoral endarterectomies and iliac stenting on 04/04/2020. No further progression noted of carotid artery stenosis. Advised to follow-up with respect modification follow-up in 6 months with full PVR and carotid duplex. Has urologist in [place] that he has been following with for BPH. Dr. Rider. Continues with alendronate for history disease of the bone. 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 Follows with eye doctor following decreased vision with stroke, improved initially now has leveled off. Still notes decreased right sided peripheral vision. Since last here he has seen Dr. 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 He has undergone glaucoma surgery and cataract surgery. He was rescheduled from Dr. Nicole to another vascular doctor in January. He had a follow-up visit in vascular surgery department January [address] Kennedy for symptomatic carotid artery disease bilateral carotid artery endarterectomy and patch angioplasties. Concern for possible restenosis. Notes history of bilateral femoral endarterectomies with iliac stenting. He was continued on optimal medical therapy with aspirin as well as statin. Cessation of smoking was endorsed. Follow-up with 6-month interval bilateral artery duplex scan. He was referred to neurologist for further surveillance of left ophthalmic artery aneurysm for continued monitoring. Presents today with his that helps with HPI. Today notes vision has stabilized. Notes weight loss despite no change in diet or activity. Notes occasional smoking. No report of cough or shortness of breath. No chest pain. No edema. No reported fevers. No current urinary complaints. Follows with urologist Dr. Elias Rider, currently taking finasteride. Reports previously seen by specialist and diagnosed with Paget's disease. He notes decreased memory, has been repeating himself of late. Not getting lost, able to complete daily activities and IADLs. Today notes weight is stable. Symptoms essentially unchanged. Has not yet scheduled appointment with endocrinology or completed neuropsychiatric testing. HTN: Without report of headache, chest pain, palpitations, dyspnea, peripheral edema, orthopnea, fatigue or PND. Going to [facility]. Last 14 Encounter BP Readings: Date: BP: 04/25/2023 118/66 03/25/2023 112/70 01/21/2023 127/66 10/28/2022 122/70 08/30/2022 122/70 08/23/2022 102/62 08/21/2022 122/70 07/19/2022 130/75 06/18/2022 112/74 12/18/2021 131/68 08/30/2021 124/70 06/12/2021 127/77 03/13/2021 132/73 01/26/2021 122/68 He notes currently with stable anxiety and depression. Doing well on Celexa. Would like to continue unchanged. No counselor, defers for now. No voiced SI, HI. Patient's last HgA1C was Hemoglobin A1C (%) Date Value 03/25/2023 4.9 11/07/2017 5.1 ) Hyperlipidemia. Mr. Gomez reports doing well on current therapy His most recent lipid panels are: Cholesterol, Total (mg/dL) Date Value 08/30/2021 280 01/26/2021 164 Total Cholesterol, Nonfasting (mg/dL) Date Value 06/18/2022 178 HDL Cholesterol (mg/dL) Date Value 08/30/2021 78 01/26/2021 74 HDL Cholesterol, Nonfasting (mg/dL) Date Value 06/18/2022 88 LDL Cholesterol (mg/dL) Date Value 08/30/2021 180 01/26/2021 81 LDL Cholesterol, Nonfasting (mg/dL) Date Value 06/18/2022 80 Triglyceride (mg/dL) Date Value 08/30/2021 108 01/26/2021 46 Triglycerides, Nonfasting (mg/dL) Date Value 06/18/2022 48 Vitamin D: notes taking OTC Review of Systems Constitutional: Negative for unexpected weight change. Respiratory: Negative. Cardiovascular: Negative. Gastrointestinal: Negative. Endocrine: Negative. Objective BP 118/66 Pulse 64 Resp 16 Wt 69.9 kg (154 lb) BMI 23.42 kg/m Physical Exam Vitals and nursing note reviewed. Constitutional: Appearance: Normal appearance. HENT: Head: Normocephalic and atraumatic. Eyes: Conjunctiva/sclera: Conjunctivae normal. Neck: Thyroid: No thyroid mass or thyromegaly. Vascular: Normal carotid pulses. Carotid bruit present. No JVD. Comments: audible carotid pulse bilateral Cardiovascular: Rate and Rhythm: Normal rate and regular rhythm. Pulses: Carotid pulses are 1+ on the right side and 1+ on the left side. Radial pulses are 2+ on the right side and 2+ on the left side. Heart sounds: Normal heart sounds. Pulmonary: Effort: Pulmonary effort is normal. Breath sounds: Normal breath sounds. Abdominal: General: Bowel sounds are normal. Palpations: Abdomen is soft. Musculoskeletal: Right lower leg: No edema. Left lower leg: No edema. Skin: General: Skin is warm and dry. Neurological: General: No focal deficit present. Mental Status: He is alert and oriented to person, place, and time. ALLERGIES Allergen Reactions Seasonal Allergies Other: See Comments Sinus, runny nose MEDICATIONS finasteride (PROSCAR) 5 mg tablet Take by mouth. citalopram (CELEXA) 40 mg tablet Take 1 tablet by mouth once daily. rosuvastatin (CRESTOR) 40 mg tablet Take 1 tablet by mouth once daily. amLODIPine (NORVASC) 5 mg tablet Take 1 tablet by mouth once daily. tamsulosin (FLOMAX) 0.4 mg TAKE 1 CAPSULE BY MOUTH EVERY DAY AT BEDTIME alendronate (FOSAMAX) 70 mg tablet Take 1 tablet by mouth one time a week. Take with a full glass of water, on an empty stomach; do NOT lie down for 30minutes. trospium (SANCTURA) 20 mg tablet Take 20 mg by mouth twice daily. calcium carbonate-vitamin D3 1,000 mg(2,500 mg)-800 unit tab Take 1,000 mg by mouth once daily. mometasone-formoterol (DULERA) 100-5 mcg/actuation inhaler Inhale 2 Puffs as instructed twice daily. (Patient taking differently: Inhale 2 Puffs as instructed as needed.) albuterol HFA (PROAIR HFA) 90 mcg/actuation inhaler Inhale 2 Puffs as instructed every 4 hours as needed for up to 15 days. 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 Lukasz Beasley Paget disease of bone Stroke (cerebrum) (HCC) Subdural hematoma (HCC) 2019 Unspecified essential hypertension Essential hypertension Social History Tobacco Use Smoking status: Former Packs/day: 0.50 Years: 15.00 Additional pack years: 0.00 Total pack years: 7.50 Types: Cigarettes Smokeless tobacco: Never Tobacco comments: 1 pack per 4 to 5 days (started 10 to 15 years ago)--as of 12/15/15 Vaping Use Vaping Use: Never used Substance Use Topics Alcohol use: Not Currently Drug use: Not Currently Component Latest Ref Rng & Units 08/30/2021 10/16/2021 06/18/2022 08/23/2022 01/21/2023 Protein, Total 6.3 - 8.0 g/dL 7.3 6.7 6.4 Albumin 3.9 - 4.9 g/dL 4.5 4.7 4.3 Calcium 8.5 - 10.2 mg/dL 10.0 10.1 9.5 Bilirubin, Total 0.2 - 1.3 mg/dL 0.4 0.4 0.3 Alkaline Phosphatase 38 - 113 U/L 194 (H) 187 (H) 182 (H) AST 14 - 40 U/L 17 22 17 Glucose 74 - 99 mg/dL 78 85 100 (H) BUN 9 - 24 mg/dL 16 19 17 Creatinine 0.73 - 1.22 mg/dL 0.86 0.93 0.88 Sodium 136 - 144 mmol/L 138 141 141 Potassium 3.7 - 5.1 mmol/L 4.3 5.0 4.1 Chloride 97 - 105 mmol/L 102 105 104 CO2 22 - 30 mmol/L 24 27 27 Anion Gap 9 - 18 mmol/L 12 9 10 ALT 10 - 54 U/L 14 29 19 eGFR- >60 eGFR-All Other Races . >60 eGFR >=60 mL/min/1.73m 90 94 WBC 3.70 - 11.00 k/uL 8.36 8.67 RBC 4.20 - 6.00 m/uL 4.61 4.71 Hemoglobin 13.0 - 17.0 g/dL 14.8 15.4 Hematocrit 39.0 - 51.0 % 46.1 47.7 MCV 80.0 - 100.0 fL 100.0 101.3 (H) MCH 26.0 - 34.0 pg 32.1 32.7 MCHC 30.5 - 36.0 g/dL 32.1 32.3 RDW-CV 11.5 - 15.0 % 11.9 12.0 Platelet Count 150 - 400 k/uL 261 216 MPV 9.0 - 12.7 fL 11.3 11.7 Absolute nRBC <0.01 k/uL <0.01 <0.01 Cholesterol, Total <200 mg/dL 280 (H) Triglyceride <150 mg/dL 108 HDL Cholesterol >39 mg/dL 78 LDL Cholesterol <100 mg/dL 180 (H) Non HDL Cholesterol <130 mg/dL 202 (H) Fasting Time hrs 12 VLDL Cholesterol <30 mg/dL 22 TC:HDL Ratio <5.10 3.59 LDL:HDL Ratio <2.54 2.31 Total Cholesterol, Nonfasting <200 mg/dL 178 Triglycerides, Nonfasting <150 mg/dL 48 HDL Cholesterol, Nonfasting >39 mg/dL 88 LDL Cholesterol, Nonfasting <100 mg/dL 80 Non HDL Cholesterol, Nonfasting <130 mg/dL 90 VLDL Cholesterol, Nonfasting <30 mg/dL 10 Total Chol/HDL Ratio, Nonfasting <5.10 mg/dL 2.02 LDL/HDL Ratio, Nonfasting <2.54 mg/dL 0.91 Bilirubin, Conjug <0.2 mg/dL <0.2 Creatinine (POCT) 0.7 - 1.4 mg/dL 0.90 eGFR (POCT) mL/min/1.73 m2 >60 Vitamin D 25 Hydroxy 31.0 - 80.0 ng/mL 35.2 46.1 Occult Blood, Stool Negative Negative ASSESSMENT/PLAN: 1. Memory difficulties - ICD9: 780.93, ICD10: R41.3 (primary diagnosis) Screen in office today, abnormal screening. He would like further evaluation. Prefers testing versus geriatric evaluation at this time. Consider Aricept - NEUROPSYCHOLOGICAL TESTING CONSULT 2. Adenocarcinoma of prostate (HCC) - ICD9: 185, ICD10: C61 States he never had prostate cancer. Follows with Dr. Elias Rider, taking finasteride Reports he is completing imaging today for urologist - PSA/PROSTSPECAG SCRN 3. Screening for colon cancer - ICD9: V76.51, ICD10: Z12.11 - FECAL OCCULT BLOOD TEST - negative 4. Weight loss - ICD9: 783.21, ICD10: R63.4 Chest x-ray and all lab work except for alkaline phosphatase were in acceptable range. Recommend he schedule appointment with objects conservator, plans to do this with local provider not in the [facility] system. Referral has already been sent - XR CHEST 2V FRONTAL/LAT - TSH BLD - COMP METABOLIC PANEL - CBC + DIFF - PSA/PROSTSPECAG SCRN No concerning findings on chest x-ray. Alkaline phosphatase is elevated. PSA within normal limits TSH within normal limits vitamin D within normal limits A1c within normal limits. Would recommend objects conservator visit if willing. Consult has been placed, schedule. Recommend neuropsychiatric testing or referral to tax specialist due to memory loss noted at home and also documented here. Not yet scheduled. 6 mo follow up Malu Rowe MD if willing Kesha Boone APRN.CNS Medical Decision Making: Medical Decision Making Level: 1 - N/A documented in this encounter [facility] 04-17-2023 Miscellaneous Notes Phoned patient to advised him that Janeen Cioce does not treat weight loss. Spoke with Betsey( spouse) and advised her to call [phone] to schedule with another endocrinology provider. She is aware there is an incoming provider but we are not scheduling with her yet. Isidra Diaz MA documented in this encounter [facility] 03-31-2023 Miscellaneous Notes Mailed information. Pt called and is notified of providers results and instructions. Pt voices understanding. Transferred to scheduled to set up appt with Endocrinology, scheduling is going to call Pt back when his is home. Lyn Matta, RN Please let him know: No concerning findings on chest x-ray. Alkaline phosphatase is elevated. PSA within normal limits TSH within normal limits vitamin D within normal limits A1c within normal limits. Would recommend objects conservator visit if willing. Consult has been placed, schedule. Recommend neuropsychiatric testing or referral to tax specialist due to memory loss noted at home and also documented here. Not yet scheduled. documented in this encounter [facility] 03-25-2023 Note HNO ID: [id number] Author: Deepti Davenport RT(R) Service: Radiology Author Type: Technologist Type: Progress Notes Filed: 03/25/2023 4:24 PM Note Text: Radiology Service Progress Note PATIENT NAME: Denny Gomez DATE OF SERVICE: March 25, 2023 TIME: 4:17 PM PATIENT IDENTITY VERIFICATION COMPLETED USING TWO (2) IDENTIFIERS: Name and Date of confirmed by patient verbally. FALL SCREENING: Has the patient had 2 falls in the last year or 1 fall with injury or currently using an Ambulatory Assistive Device (Walker, Cane, Wheelchair, Crutches, etc.)? No PATIENT GENDER DATA: Male PATIENT RELEVANT IMPLANT DATA REVIEWED: Yes RADIOLOGY DEPARTMENT: General X-ray: Exam(s) Completed: Chest X-Ray PERIPHERAL IV DATA: Not applicable SIGNED BY: RT Erik(R) March 25, 2023 4:17 PM [facility] 03-25-2023 Note HNO ID: [id number] Author: Kesha Boone APRN.WAX MACHINE OPERATOR Service: ? Author Type: Nurse Specialist Type: Progress Notes Filed: 03/25/2023 5:01 PM Note Text: SUBJECTIVE: SHINGRIX VACCINE(1 of 2) Never done ADVANCE DIRECTIVE DISCUSSION due on 08/04/2022 COLORECTAL CANCER SCREENING due on 10/16/2022 COVID-19 VACCINE(5 - Pfizer series) due on 10/16/2022 HPI Denny Gomez is a 67 year old male. [facility] signficant for ACTIVE PROBLEM LIST Anxiety and Depression Mixed Hyperlipidemia Essential Hypertension Paget's Bone Disease Elevated Psa, Less Than 10 Ng/Ml History of Cerebral Hemorrhage Vision Loss, Bilateral Homonymous Hemianopsia, Right Ocular Hypertension, Bilateral Optic Cupping of Both Eyes Combined Forms of Age-Related Cataract of Left Eye Bilateral Carotid Artery Stenosis Pad (Peripheral Artery Disease) ([facility]) S/P Carotid Endarterectomy H/O Ischemic Left Mca Stroke Intracranial Atherosclerosis Atherosclerosis of [place] Artery of Extremity With Intermittent Claudication ([facility]) Iliac Artery Injury, Left, Initial Encounter Facial Swelling Vitamin D Deficiency Recurrent Depressive Disorder, in Remission ([facility]) Primary Open Angle Glaucoma (Poag) of Right Eye, Moderate Stage Primary Open Angle Glaucoma (Poag) of Left Eye, Moderate Stage Hypercholesteremia Status Post Cataract Extraction and Insertion of Intraocular Lens of Left Eye Status Post Cataract Extraction and Insertion of Intraocular Lens of Right Eye Aortoiliac Occlusive Disease ([facility]) 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 Last seen March 2021. CT scan at last visit showed some narrowing of the left internal carotid artery versus difference in measuring techniques or possibly plaque or scar tissue developing in the artery. Subsequently seen by Rolan Howard MDVascular Surgery June 2021. Noted to be feeling well. Noted left CEA on 03/24/2020 and bilateral femoral endarterectomies and iliac stenting on 04/04/2020. No further progression noted of carotid artery stenosis. Advised to follow-up with respect modification follow-up in 6 months with full PVR and carotid duplex. Has urologist in [place] that he has been following with for BPH. Dr. Rider. Continues with alendronate for history disease of the bone. 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 Follows with eye doctor following decreased vision with stroke, improved initially now has leveled off. Still notes decreased right sided peripheral vision. Since last here he has seen Dr. 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 He has undergone glaucoma surgery and cataract surgery. He was rescheduled from Dr. Nicole to another vascular doctor in January. He had a follow-up visit in vascular surgery department January [address] Kennedy for symptomatic carotid artery disease bilateral carotid artery endarterectomy and patch angioplasties. Concern for possible restenosis. Notes history of bilateral femoral endarterectomies with iliac stenting. He was continued on optimal medical therapy with aspirin as well as statin. Cessation of smoking was endorsed. Follow-up with 6-month interval bilateral artery duplex scan. He was referred to neurologist for further surveillance of left ophthalmic artery aneurysm for continued monitoring. Presents today with his that helps with HPI. Today notes vision has stabilized. Notes weight loss despite no change in diet or activity. Notes occasional smoking. No report of cough or shortness of breath. No chest pain. No edema. No reported fevers. No current urinary complaints. Follows with urologist Dr. Elias Rider, currently taking finasteride. Reports previously seen by specialist and diagnosed with Paget's disease. He notes decreased memory, has been repeating himself of late. Not getting lost, able to complete daily activities and IADLs. HTN: Without report of headache, chest pain, palpitations, dyspnea, peripheral edema, orthopnea, fatigue or PND. Going to [facility]. Last 14 Encounter BP Readings: Date: BP: 01/21/2023 127/66 10/28/2022 122/70 08/30/2022 122/70 08/23/2022 102/62 08/21/2022 122/70 07/19/2022 130/75 06/18/2022 112/74 12/18/2021 131/68 08/30/2021 124/70 06/12/2021 127/77 03/13/2021 132/73 01/26/2021 122/68 08/15/2020 162/77 06/23/2020 120/78 He notes currently with stable anxiety and depression. Doing well on Celexa. Would like to continue unchanged. No counselor, defers for now. No voiced SI, HI. Patient's last HgA1C was Hemoglobin A1C (%) Date Value 11/07/2017 5.1 ) Hyperlipid (more content not included)... [facility] 03-25-2023 History of Present illness Narrative SUBJECTIVE: SHINGRIX VACCINE(1 of 2) Never done ADVANCE DIRECTIVE DISCUSSION due on 08/04/2022 COLORECTAL CANCER SCREENING due on 10/16/2022 COVID-19 VACCINE(5 - Pfizer series) due on 10/16/2022 HPI Denny Gomez is a 67 year old male. 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 ACTIVE PROBLEM LIST Anxiety and Depression Mixed Hyperlipidemia Essential Hypertension Paget's Bone Disease Elevated Psa, Less Than 10 Ng/Ml History of Cerebral Hemorrhage Vision Loss, Bilateral Homonymous Hemianopsia, Right Ocular Hypertension, Bilateral Optic Cupping of Both Eyes Combined Forms of Age-Related Cataract of Left Eye Bilateral Carotid Artery Stenosis Pad (Peripheral Artery Disease) ([facility]) S/P Carotid Endarterectomy H/O Ischemic Left Mca Stroke Intracranial Atherosclerosis Atherosclerosis of [place] Artery of Extremity With Intermittent Claudication ([facility]) Iliac Artery Injury, Left, Initial Encounter Facial Swelling Vitamin D Deficiency Recurrent Depressive Disorder, in Remission ([facility]) Primary Open Angle Glaucoma (Poag) of Right Eye, Moderate Stage Primary Open Angle Glaucoma (Poag) of Left Eye, Moderate Stage Hypercholesteremia Status Post Cataract Extraction and Insertion of Intraocular Lens of Left Eye Status Post Cataract Extraction and Insertion of Intraocular Lens of Right Eye 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 Last seen March 2021. CT scan at last visit showed some narrowing of the left internal carotid artery versus difference in measuring techniques or possibly plaque or scar tissue developing in the artery. Subsequently seen by Rolan Howard MDVascular Surgery June 2021. Noted to be feeling well. Noted left CEA on 03/24/2020 and bilateral femoral endarterectomies and iliac stenting on 04/04/2020. No further progression noted of carotid artery stenosis. Advised to follow-up with respect modification follow-up in 6 months with full PVR and carotid duplex. Has urologist in [place] that he has been following with for BPH. Dr. Rider. Continues with alendronate for history disease of the bone. 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 Follows with eye doctor following decreased vision with stroke, improved initially now has leveled off. Still notes decreased right sided peripheral vision. Since last here he has seen Dr. 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 He has undergone glaucoma surgery and cataract surgery. He was rescheduled from Dr. Nicole to another vascular doctor in January. He had a follow-up visit in vascular surgery department January [address] Kennedy for symptomatic carotid artery disease bilateral carotid artery endarterectomy and patch angioplasties. Concern for possible restenosis. Notes history of bilateral femoral endarterectomies with iliac stenting. He was continued on optimal medical therapy with aspirin as well as statin. Cessation of smoking was endorsed. Follow-up with 6-month interval bilateral artery duplex scan. He was referred to neurologist for further surveillance of left ophthalmic artery aneurysm for continued monitoring. Presents today with his that helps with HPI. Today notes vision has stabilized. Notes weight loss despite no change in diet or activity. Notes occasional smoking. No report of cough or shortness of breath. No chest pain. No edema. No reported fevers. No current urinary complaints. Follows with urologist Dr. Elias Rider, currently taking finasteride. Reports previously seen by specialist and diagnosed with Paget's disease. He notes decreased memory, has been repeating himself of late. Not getting lost, able to complete daily activities and IADLs. HTN: Without report of headache, chest pain, palpitations, dyspnea, peripheral edema, orthopnea, fatigue or PND. Going to [facility]. Last 14 Encounter BP Readings: Date: BP: 01/21/2023 127/66 10/28/2022 122/70 08/30/2022 122/70 08/23/2022 102/62 08/21/2022 122/70 07/19/2022 130/75 06/18/2022 112/74 12/18/2021 131/68 08/30/2021 124/70 06/12/2021 127/77 03/13/2021 132/73 01/26/2021 122/68 08/15/2020 162/77 06/23/2020 120/78 He notes currently with stable anxiety and depression. Doing well on Celexa. Would like to continue unchanged. No counselor, defers for now. No voiced SI, HI. Patient's last HgA1C was Hemoglobin A1C (%) Date Value 11/07/2017 5.1 ) Hyperlipidemia. Mr. Gomez reports doing well on current therapy His most recent lipid panels are: Cholesterol, Total (mg/dL) Date Value 08/30/2021 280 01/26/2021 164 Total Cholesterol, Nonfasting (mg/dL) Date Value 06/18/2022 178 HDL Cholesterol (mg/dL) Date Value 08/30/2021 78 01/26/2021 74 HDL Cholesterol, Nonfasting (mg/dL) Date Value 06/18/2022 88 LDL Cholesterol (mg/dL) Date Value 08/30/2021 180 01/26/2021 81 LDL Cholesterol, Nonfasting (mg/dL) Date Value 06/18/2022 80 Triglyceride (mg/dL) Date Value 08/30/2021 108 01/26/2021 46 Triglycerides, Nonfasting (mg/dL) Date Value 06/18/2022 48 Vitamin D: notes taking OTC Review of Systems Constitutional: Positive for unexpected weight change. Respiratory: Negative. Cardiovascular: Negative. Gastrointestinal: Negative. Endocrine: Negative. Objective BP 112/70 Pulse 68 Resp 16 Wt 69.9 kg (154 lb) SpO2 97% BMI 23.42 kg/m Physical Exam Vitals and nursing note reviewed. Constitutional: Appearance: Normal appearance. HENT: Head: Normocephalic and atraumatic. Eyes: Conjunctiva/sclera: Conjunctivae normal. Neck: Thyroid: No thyroid mass or thyromegaly. Vascular: Normal carotid pulses. No JVD. Comments: audible carotid pulse bilateral Cardiovascular: Rate and Rhythm: Normal rate and regular rhythm. Pulses: Carotid pulses are 1+ on the right side and 1+ on the left side. Radial pulses are 2+ on the right side and 2+ on the left side. Heart sounds: Normal heart sounds. Pulmonary: Effort: Pulmonary effort is normal. Breath sounds: Normal breath sounds. Abdominal: General: Bowel sounds are normal. Palpations: Abdomen is soft. Musculoskeletal: Right lower leg: No edema. Left lower leg: No edema. Skin: General: Skin is warm and dry. Neurological: General: No focal deficit present. Mental Status: He is alert and oriented to person, place, and time. ALLERGIES Allergen Reactions Seasonal Allergies Other: See Comments Sinus, runny nose MEDICATIONS finasteride (PROSCAR) 5 mg tablet Take by mouth. citalopram (CELEXA) 40 mg tablet Take 1 tablet by mouth once daily. rosuvastatin (CRESTOR) 40 mg tablet Take 1 tablet by mouth once daily. amLODIPine (NORVASC) 5 mg tablet Take 1 tablet by mouth once daily. tamsulosin (FLOMAX) 0.4 mg TAKE 1 CAPSULE BY MOUTH EVERY DAY AT BEDTIME alendronate (FOSAMAX) 70 mg tablet Take 1 tablet by mouth one time a week. Take with a full glass of water, on an empty stomach; do NOT lie down for 30minutes. trospium (SANCTURA) 20 mg tablet Take 20 mg by mouth twice daily. calcium carbonate-vitamin D3 1,000 mg(2,500 mg)-800 unit tab Take 1,000 mg by mouth once daily. mometasone-formoterol (DULERA) 100-5 mcg/actuation inhaler Inhale 2 Puffs as instructed twice daily. (Patient taking differently: Inhale 2 Puffs as instructed as needed.) albuterol HFA (PROAIR HFA) 90 mcg/actuation inhaler Inhale 2 Puffs as instructed every 4 hours as needed for up to 15 days. PAST MEDICAL HISTORY Diagnosis Date Abnormal hemoglobin (Hgb) ([facility]) 04/07/2020 Hx: POD2 labs with drop in hemoglobin to 8.4 from baseline 10.6; transfused 1u PRBC POD2 A: asymptomatic, no associated tachycardia or hypotension P: f/u AM CBC Anxiety and depression BPH (benign prostatic hyperplasia) Carotid artery stenosis, asymptomatic, left Critical lower limb ischemia ([facility]) Intracerebral aneurysm Legally blind 2019 R eye (had a stroke in that eye) Mixed hyperlipidemia Hyperlipidemia Occlusion of right carotid artery 01/30/[address] Lukasz Beasley Paget disease of bone Stroke (cerebrum) ([facility]) Subdural hematoma ([facility]) 2019 Unspecified essential hypertension Essential hypertension Social History Tobacco Use Smoking status: Former Packs/day: 0.50 Years: 15.00 Additional pack years: 0.00 Total pack years: 7.50 Types: Cigarettes Smokeless tobacco: Never Tobacco comments: 1 pack per 4 to 5 days (started 10 to 15 years ago)--as of 12/15/15 Vaping Use Vaping Use: Never used Substance Use Topics Alcohol use: Not Currently Drug use: Not Currently Component Latest Ref Rng & Units 08/30/2021 10/16/2021 06/18/2022 08/23/2022 01/21/2023 Protein, Total 6.3 - 8.0 g/dL 7.3 6.7 6.4 Albumin 3.9 - 4.9 g/dL 4.5 4.7 4.3 Calcium 8.5 - 10.2 mg/dL 10.0 10.1 9.5 Bilirubin, Total 0.2 - 1.3 mg/dL 0.4 0.4 0.3 Alkaline Phosphatase 38 - 113 U/L 194 (H) 187 (H) 182 (H) AST 14 - 40 U/L 17 22 17 Glucose 74 - 99 mg/dL 78 85 100 (H) BUN 9 - 24 mg/dL 16 19 17 Creatinine 0.73 - 1.22 mg/dL 0.86 0.93 0.88 Sodium 136 - 144 mmol/L 138 141 141 Potassium 3.7 - 5.1 mmol/L 4.3 5.0 4.1 Chloride 97 - 105 mmol/L 102 105 104 CO2 22 - 30 mmol/L 24 27 27 Anion Gap 9 - 18 mmol/L 12 9 10 ALT 10 - 54 U/L 14 29 19 eGFR- >60 eGFR-All Other Races . >60 eGFR >=60 mL/min/1.73m 90 94 WBC 3.70 - 11.00 k/uL 8.36 8.67 RBC 4.20 - 6.00 m/uL 4.61 4.71 Hemoglobin 13.0 - 17.0 g/dL 14.8 15.4 Hematocrit 39.0 - 51.0 % 46.1 47.7 MCV 80.0 - 100.0 fL 100.0 101.3 (H) MCH 26.0 - 34.0 pg 32.1 32.7 MCHC 30.5 - 36.0 g/dL 32.1 32.3 RDW-CV 11.5 - 15.0 % 11.9 12.0 Platelet Count 150 - 400 k/uL 261 216 MPV 9.0 - 12.7 fL 11.3 11.7 Absolute nRBC <0.01 k/uL <0.01 <0.01 Cholesterol, Total <200 mg/dL 280 (H) Triglyceride <150 mg/dL 108 HDL Cholesterol >39 mg/dL 78 LDL Cholesterol <100 mg/dL 180 (H) Non HDL Cholesterol <130 mg/dL 202 (H) Fasting Time hrs 12 VLDL Cholesterol <30 mg/dL 22 TC:HDL Ratio <5.10 3.59 LDL:HDL Ratio <2.54 2.31 Total Cholesterol, Nonfasting <200 mg/dL 178 Triglycerides, Nonfasting <150 mg/dL 48 HDL Cholesterol, Nonfasting >39 mg/dL 88 LDL Cholesterol, Nonfasting <100 mg/dL 80 Non HDL Cholesterol, Nonfasting <130 mg/dL 90 VLDL Cholesterol, Nonfasting <30 mg/dL 10 Total Chol/HDL Ratio, Nonfasting <5.10 mg/dL 2.02 LDL/HDL Ratio, Nonfasting <2.54 mg/dL 0.91 Bilirubin, Conjug <0.2 mg/dL <0.2 Creatinine (POCT) 0.7 - 1.4 mg/dL 0.90 eGFR (POCT) mL/min/1.73 m2 >60 Vitamin D 25 Hydroxy 31.0 - 80.0 ng/mL 35.2 46.1 Occult Blood, Stool Negative Negative ASSESSMENT/PLAN: 1. Memory difficulties - ICD9: 780.93, ICD10: R41.3 (primary diagnosis) Screen in office today, abnormal screening. He would like further evaluation. Prefers testing versus geriatric evaluation at this time. Consider Aricept - NEUROPSYCHOLOGICAL TESTING CONSULT 2. Adenocarcinoma of prostate (HCC) - ICD9: 185, ICD10: C61 States he never had prostate cancer. Follows with Dr. Elias Rider, taking finasteride - PSA/PROSTSPECAG SCRN 3. Recurrent depressive disorder, in remission (HCC) - ICD9: 296.35, ICD10: F33.40 Stable, currently controlled, continue to monitor. 4. Subdural hematoma (HCC) - ICD9: 432.1, ICD10: S06.5XAA Resolved 5. Need for shingles vaccine - ICD9: V04.89, ICD10: Z23 - SHINGRIX PRINTED PHARMACY INSTRUCTIONS 6. Screening for colon cancer - ICD9: V76.51, ICD10: Z12.11 - FECAL OCCULT BLOOD TEST 7. Encounter for immunization - ICD9: V03.89, ICD10: Z23 8. Weight loss - ICD9: 783.21, ICD10: R63.4 - XR CHEST 2V FRONTAL/LAT - TSH BLD - COMP METABOLIC PANEL - CBC + DIFF - PSA/PROSTSPECAG SCRN 9. Vitamin D deficiency - ICD9: 268.9, ICD10: E55.9 - VITAMIN D 25 HYDROXY 10. Encounter for screening for diabetes mellitus - ICD9: V77.1, ICD10: Z13.1 - HGB A1C Labs today 1 mo recheck Kesha Boone APRN.CNS 3 mo follow up Malu Rowe MD if willing Kesha Boone APRN.CNS Medical Decision Making: Problems: Moderate: New problem with uncertain prognosis and 2+ stable chronic illnesses Data: Unique test(s) ordered: 3+ Risk: Moderate: Drug management Medical Decision Making Level: 4 - Moderate documented in this encounter [facility] 02-28-2023 Note HNO ID: [id number] Author: Missael Campbell Service: ? Author Type: ? Type: Progress Notes Filed: 02/28/2023 5:15 PM Note Text: POPULATION HEALTH NAVIGATION OUTREACH Action/FYI HCC Gaps Due; F33.40 - Recurrent depressive disorder, in remission (HCC) - [id number] Last Billed 08/30/2021 [employer] Care Gaps Due; Follow Up Colonoscopy Advanced Directives My Chart Activation Scheduled Follow Up with PCP. Patient States he is unsure if he wants My Chart and will think about it. Will discuss Colorectal Cancer Screening at appt with PCP. Patient Identified by Name and : YES, via phone Outreach Outcome/Action Spoke to patient / parent / legal guardian: Patient scheduled Did you use a PCP flex slot to schedule this appointment? No Reason for Outreach HCC or suspected condition Payer: Payor: [employer] MEDICARE / Plan: [employer] MEDICARE PPO / Product Type: PPO / Care Gap Reviewed:: Follow-up appointment Colorectal Cancer Screening Reminder: Reminder note to check Health Maintenance for items below Health Maintenance items due: SHINGRIX VACCINE(1 of 2) Never done ADVANCE DIRECTIVE DISCUSSION due on 08/04/2022 COLORECTAL CANCER SCREENING due on 10/16/2022 COVID-19 VACCINE(5 - Pfizer series) due on 10/16/2022 Navigation Signature: Missael Betts February 28, 2023 3:05 PM [facility] 02-28-2023 Note Patient Outreach (NE TNAV) DENNY GOMEZ ([id number]) 1955 M Date Time Provider Department 02/28/23 MISSAEL DYSON ([facility]) ANITAV During your visit today, we recorded the following information about you: Missael Campbell 02/28/2023 5:15 PM Signed POPULATION HEALTH NAVIGATION OUTREACH Action/I HCC Gaps Due; F33.40 - Recurrent depressive disorder, in remission (HCC) - [id number] Last Billed 08/30/2021 [employer] Care Gaps Due; Follow Up Colonoscopy Advanced Directives My Chart Activation Scheduled Follow Up with PCP. Patient States he is unsure if he wants My Chart and will think about it. [facility]. Patient Identified by Name and : YES, via phone Outreach Outcome/Action Spoke to patient / parent / legal guardian: Patient scheduled Did you use a PCP flex slot to schedule this appointment? No Reason for Outreach HCC or suspected condition Payer: Payor: [employer] MEDICARE / Plan: [employer] MEDICARE PPO / Product Type: PPO / Care Gap Reviewed:: Follow-up appointment Colorectal Cancer Screening Reminder: Reminder note to check Health Maintenance for items below Health Maintenance items due: SHINGRIX VACCINE(1 of 2) Never done ADVANCE DIRECTIVE DISCUSSION due on 08/04/2022 COLORECTAL CANCER SCREENING due on 10/16/2022 COVID-19 VACCINE(5 - Pfizer series) due on 10/16/2022 Navigation Signature: Missael Dyson [facility] February 28, 2023 3:05 PM Allergies As of Date: 02/28/2023 Noted Allergy Reaction SEASONAL ALLERGIES 2016 14 - Other: See Comments Comments: Sinus, runny nose Date Reviewed: 01/21/2023 Reviewed by: Danika Esquivel LPN - Fully Assessed Reason for Visit: Population Health Navigation Outreach [3910] Cmt: [employer] Low HCC Prescriptions as of 02/28/2023 - citalopram (CELEXA) 40 mg tablet Take 1 tablet by mouth once daily. - prednisoLONE acetate (PRED FORTE) 1 % ophthalmic suspension Use 1 Drop in the left eye every hour. - rosuvastatin (CRESTOR) 40 mg tablet Take 1 tablet by mouth once daily. - amLODIPine (NORVASC) 5 mg tablet Take 1 tablet by mouth once daily. - tamsulosin (FLOMAX) 0.4 mg TAKE 1 CAPSULE BY MOUTH EVERY DAY AT BEDTIME - clopidogrel (PLAVIX) 75 mg tablet Take 1 tablet by mouth once daily. - alendronate (FOSAMAX) 70 mg tablet Take 1 tablet by mouth one time a week. Take with a full glass of water, on an empty stomach; do NOT lie down for 30minutes. - trospium (SANCTURA) 20 mg tablet Take 20 mg by mouth twice daily. - calcium carbonate-vitamin D3 1,000 mg(2,500 mg)-800 unit tab Take 1,000 mg by mouth once daily. - mometasone-formoterol (DULERA) 100-5 mcg/actuation inhaler Inhale 2 Puffs as instructed twice daily. - albuterol HFA (PROAIR HFA) 90 mcg/actuation inhaler Inhale 2 Puffs as instructed every 4 hours as needed for up to 15 days. - cholecalciferol, Vitamin D3, (VITAMIN D3) 50,000 unit cap capsule Take 1 capsule by mouth once each week. Meds Comments as of 05/22/2018: Calcium OTC unsure of dosage. Jayashree Hernández Ma Problem List As Of Date 02/28/2023 Noted Resolved Occlusion of right carotid artery [I65.21] 01/30/2008 06/21/2020 Anxiety and depression [F41.9, F32.A] Mixed hyperlipidemia [E78.2] Essential hypertension [I10] 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] 10/25/2016 Elevated PSA, less than 10 ng/ml [R97.20] 05/02/2017 History of cerebral hemorrhage [Z86.79] 01/25/2019 Vision loss, bilateral [H54.3] 01/29/2019 Homonymous hemianopsia, right [H53.461] 01/29/2019 Subdural hematoma (HCC) [S06.5XAA] 01/29/2019 06/21/2020 Ocular hypertension, bilateral [H40.053] 01/29/2019 Optic cupping of both eyes [H47.233] 01/29/2019 Combined forms of age-related cataract of left *01/29/2019 Bilateral carotid artery stenosis [I65.23] 03/24/2020 PAD (peripheral artery disease) ([facility]) [I73.9] 03/25/2020 S/P carotid endarterectomy [Z98.890] 03/25/2020 H/O ischemic left MCA stroke [Z86.73] 03/31/2020 Intracranial atherosclerosis [I67.2] 03/31/2020 Atherosclerosis of [place] artery of extremity w*04/04/2020 Iliac artery injury, left, initial encounter [S*04/04/2020 On mechanically assisted ventilation ([facility]) [Z99*04/04/2020 04/05/2020 Stress hyperglycemia [R73.9] 04/04/2020 04/06/2020 Post-op pain [G89.18] 04/04/2020 04/08/2020 Facial swelling [R22.0] 04/05/2020 Abnormal hemoglobin (Hgb) ([facility]) [D58.2] 04/07/2020 04/17/2021 Vitamin D deficiency [E55.9] 02/26/2021 Recurrent depressive disorder, in remission (HC*02/26/2021 Primary open angle glaucoma (POAG) of right eye*08/30/2022 Primary open angle glaucoma (POAG) of left eye,*08/30/2022 Combined forms of age-related cataract of right*08/30/2022 09/27/2022 Hypercholesteremia [E78.00] 08/30/2022 Status post cataract extraction and insertion o*11/08/2022 Status post cataract extraction and insertion o*11/08/2022 Aortoiliac occlus (more content not included)... [facility] 01-21-2023 Note Patient Outreach (PAUL TNAV) DENNY GOMEZ ([id number]) 1955 M Date Time Provider Department 01/21/23 KELLIE CHRISTIAN During your visit today, we recorded the following information about you: Kellie Fontenot MA 01/21/2023 9:56 AM Signed POPULATION HEALTH NAVIGATION OUTREACH Action/FYI Return in about 6 months (around 12/16/2022) for 6 months follow up. No active mychart Patient Identified by Name and : NO Outreach Outcome/Action Unable to reach patient: Left message Did you use a PCP flex slot to schedule this appointment? N/A Reason for Outreach Care Gap or Scheduling/Wellness visits Payer: Payor: [employer] MEDICARE / Plan: [employer] MEDICARE PPO / Product Type: PPO / Care Gap Reviewed:: Follow-up appointment Colorectal Cancer Screening Reminder: Reminder note to check Health Maintenance for items below Health Maintenance items due: SHINGRIX VACCINE(1 of 2) Never done ADVANCE DIRECTIVE DISCUSSION due on 08/04/2022 COLORECTAL CANCER SCREENING due on 10/16/2022 Navigation Signature: Kellie Fontenot MA January 21, 2023 9:11 AM Allergies As of Date: 01/21/2023 Noted Allergy Reaction SEASONAL ALLERGIES 2016 14 - Other: See Comments Comments: Sinus, runny nose Date Reviewed: 01/21/2023 Reviewed by: Sherif Albrecht RN - Fully Assessed Reason for Visit: Population Health Navigation Outreach [3910] Cmt: [employer] Gaps Prescriptions as of 01/21/2023 - citalopram (CELEXA) 40 mg tablet Take 1 tablet by mouth once daily. - prednisoLONE acetate (PRED FORTE) 1 % ophthalmic suspension Use 1 Drop in the left eye every hour. - rosuvastatin (CRESTOR) 40 mg tablet Take 1 tablet by mouth once daily. - amLODIPine (NORVASC) 5 mg tablet Take 1 tablet by mouth once daily. - tamsulosin (FLOMAX) 0.4 mg TAKE 1 CAPSULE BY MOUTH EVERY DAY AT BEDTIME - clopidogrel (PLAVIX) 75 mg tablet Take 1 tablet by mouth once daily. - alendronate (FOSAMAX) 70 mg tablet Take 1 tablet by mouth one time a week. Take with a full glass of water, on an empty stomach; do NOT lie down for 30minutes. - trospium (SANCTURA) 20 mg tablet Take 20 mg by mouth twice daily. - calcium carbonate-vitamin D3 1,000 mg(2,500 mg)-800 unit tab Take 1,000 mg by mouth once daily. - mometasone-formoterol (DULERA) 100-5 mcg/actuation inhaler Inhale 2 Puffs as instructed twice daily. - albuterol HFA (PROAIR HFA) 90 mcg/actuation inhaler Inhale 2 Puffs as instructed every 4 hours as needed for up to 15 days. - cholecalciferol, Vitamin D3, (VITAMIN D3) 50,000 unit cap capsule Take 1 capsule by mouth once each week. Meds Comments as of 05/22/2018: Calcium OTC unsure of dosage. Jayashree Hernández Ma Problem List As Of Date 01/21/2023 Noted Resolved Occlusion of right carotid artery [I65.21] 01/30/2008 06/21/2020 Anxiety and depression [F41.9, F32.A] Mixed hyperlipidemia [E78.2] Essential hypertension [I10] 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] 10/25/2016 Elevated PSA, less than 10 ng/ml [R97.20] 05/02/2017 History of cerebral hemorrhage [Z86.79] 01/25/2019 Vision loss, bilateral [H54.3] 01/29/2019 Homonymous hemianopsia, right [H53.461] 01/29/2019 Subdural hematoma (HCC) [S06.5XAA] 01/29/2019 06/21/2020 Ocular hypertension, bilateral [H40.053] 01/29/2019 Optic cupping of both eyes [H47.233] 01/29/2019 Combined forms of age-related cataract of left *01/29/2019 Bilateral carotid artery stenosis [I65.23] 03/24/2020 PAD (peripheral artery disease) (HCC) [I73.9] 03/25/2020 S/P carotid endarterectomy [Z98.890] 03/25/2020 H/O ischemic left MCA stroke [Z86.73] 03/31/2020 Intracranial atherosclerosis [I67.2] 03/31/2020 Atherosclerosis of jackson artery of extremity w*04/04/2020 Iliac artery injury, left, initial encounter [S*04/04/2020 On mechanically assisted ventilation (HCC) [Z99*04/04/2020 04/05/2020 Stress hyperglycemia [R73.9] 04/04/2020 04/06/2020 Post-op pain [G89.18] 04/04/2020 04/08/2020 Facial swelling [R22.0] 04/05/2020 Abnormal hemoglobin (Hgb) (HCC) [D58.2] 04/07/2020 04/17/2021 Vitamin D deficiency [E55.9] 02/26/2021 Recurrent depressive disorder, in remission (HC*02/26/2021 Primary open angle glaucoma (POAG) of right eye*08/30/2022 Primary open angle glaucoma (POAG) of left eye,*08/30/2022 Combined forms of age-related cataract of right*08/30/2022 09/27/2022 Hypercholesteremia [E78.00] 08/30/2022 Status post cataract extraction and insertion o*11/08/2022 Status post cataract extraction and insertion o*11/08/2022 Encounter Status:Closed by KELLIE CHRISTIAN on 01/21/23 [facility] 01-21-2023 Note HNO ID: [id number] Author: Carlos A Kennedy MD Service: ? Author Type: Physician Type: Progress Notes Filed: 01/21/2023 12:38 PM Note Text: [facility] [place] DEPARTMENT OF VASCULAR SURGERY OUTPATIENT VISIT DATE January 21, 2023 OUTPATIENT VISIT TYPE ESTABLISHED SERVICE DATE: 01/21/2023 SERVICE TIME: 11:58 AM PRIMARY CARE PHYSICIAN: Kesha Boone APRN.WAX MACHINE OPERATOR HISTORY OF PRESENT ILLNESS: Mr. Gomez is a 67 year old male who presents today for a vascular surgery follow-up visit. He had symptomatic carotid artery disease and underwent bilateral carotid artery endarterectomy and patch angioplasties. His last surveillance carotid duplex demonstrated elevated carotid to ICA ratio which signified possible restenosis. He comes here today with another CTA. He continues to not have any signs or symptoms of TIA or stroke. Also has peripheral arterial disease status post bilateral femoral endarterectomies with iliac stenting. He is ambulating without any difficulty. Does not have any signs or symptoms of claudication and does not have any nonhealing wounds or rest pain. 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 Lukasz Beasley Paget disease of bone Stroke (cerebrum) (HCC) Subdural hematoma (HCC) 2018 Unspecified essential hypertension Essential hypertension PAST SURGICAL HISTORY Procedure Laterality Date ARTL CATHJ/CANNULJ MNTR/TRANSFUSION SPX PRQ 02/16/2008 CANALOPLASTY W/STENT Right 09/26/2022 Microstent CANALOPLASTY W/STENT Left 11/07/2022 CAROTID ENDARTERECTOMY Bilateral PAST SURGICAL HISTORY OF Left 2013 Lt elbow cyst excision PAST SURGICAL HISTORY OF L knee arthroscopic surgery REMV CATARACT EXTRACAP,INSERT LENS Right 09/26/2022 REMV CATARACT EXTRACAP,INSERT LENS Left 11/07/2022 SN60WF +22.5 D TEAEC W/PATCH GRF CAROTID VERTB SUBCLAV NECK INC 02/16/2008 right CEA SOCIAL HISTORY Social History Tobacco Use Smoking status: Former Packs/day: 0.50 Years: 15.00 Pack years: 7.50 Types: Cigarettes Smokeless tobacco: Never Tobacco comments: 1 pack per 4 to 5 days (started 10 to 15 years ago)--as of 12/15/15 Vaping Use Vaping Use: Never used Substance Use Topics Alcohol use: Not Currently Drug use: Not Currently MEDICATIONS: citalopram (CELEXA) 40 mg tablet Take 1 tablet by mouth once daily. rosuvastatin (CRESTOR) 40 mg tablet Take 1 tablet by mouth once daily. amLODIPine (NORVASC) 5 mg tablet Take 1 tablet by mouth once daily. tamsulosin (FLOMAX) 0.4 mg TAKE 1 CAPSULE BY MOUTH EVERY DAY AT BEDTIME clopidogrel (PLAVIX) 75 mg tablet Take 1 tablet by mouth once daily. alendronate (FOSAMAX) 70 mg tablet Take 1 tablet by mouth one time a week. Take with a full glass of water, on an empty stomach; do NOT lie down for 30minutes. trospium (SANCTURA) 20 mg tablet Take 20 mg by mouth twice daily. calcium carbonate-vitamin D3 1,000 mg(2,500 mg)-800 unit tab Take 1,000 mg by mouth once daily. albuterol HFA (PROAIR HFA) 90 mcg/actuation inhaler Inhale 2 Puffs as instructed every 4 hours as needed for up to 15 days. cholecalciferol, Vitamin D3, (VITAMIN D3) 50,000 unit cap capsule Take 1 capsule by mouth once each week. prednisoLONE acetate (PRED FORTE) 1 % ophthalmic suspension Use 1 Drop in the left eye every hour. (Patient not taking: Reported on 01/21/2023) mometasone-formoterol (DULERA) 100-5 mcg/actuation inhaler Inhale 2 Puffs as instructed twice daily. (Patient taking differently: Inhale 2 Puffs as instructed as needed.) ALLERGIES: ALLERGIES Allergen Reactions Seasonal Allergies Other: See Comments Sinus, runny nose PHYSICAL EXAM: BP 127/66 (BP Site: Right Arm) Pulse 65 General: Alert and oriented, No acute distress Integumentary: Normal color, no rash, no lesions. HEENT: EOM, pupils equal, round and reactive. Cardiovascular: Normal S1 AND S2, no rubs, murmurs or gallops. No JVD., Pulse regular. Lungs: Normal breath sounds, no wheezes or crackles. Abdomen: Soft, non-tender, no rigidity. Extremities: No deformity, no edema or tenderness, no joint swelling or clubbing. Neurological: Normal cognition and motor skills. Vascular: Carotid Pulse Right: Normal - Left: Normal Brachial Pulse Right: Normal - Left: Normal Radial Pulse Right: Normal - Left: Normal Diagnostic tests reviewed for today's visit: Most recent imaging CT angiogram head and neck patent bilateral ICA repairs with no s (more content not included)... [facility] 01-21-2023 History of Present illness Narrative Images from the original note were not included. [facility] [place] DEPARTMENT OF VASCULAR SURGERY OUTPATIENT VISIT DATE January 21, 2023 OUTPATIENT VISIT TYPE ESTABLISHED SERVICE DATE: 01/21/2023 SERVICE TIME: 11:58 AM PRIMARY CARE PHYSICIAN: Kesha Boone APRN.WAX MACHINE OPERATOR HISTORY OF PRESENT ILLNESS: Mr. Gomez is a 67 year old male who presents today for a vascular surgery follow-up visit. He had symptomatic carotid artery disease and underwent bilateral carotid artery endarterectomy and patch angioplasties. His last surveillance carotid duplex demonstrated elevated carotid to ICA ratio which signified possible restenosis. He comes here today with another CTA. He continues to not have any signs or symptoms of TIA or stroke. Also has peripheral arterial disease status post bilateral femoral endarterectomies with iliac stenting. He is ambulating without any difficulty. Does not have any signs or symptoms of claudication and does not have any nonhealing wounds or rest pain. 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 Lukasz Beasley Paget disease of bone Stroke (cerebrum) ([facility]) Subdural hematoma ([facility]) 2019 Unspecified essential hypertension Essential hypertension PAST SURGICAL HISTORY Procedure Laterality Date ARTL CATHJ/CANNULJ MNTR/TRANSFUSION SPX PRQ 02/16/2008 CANALOPLASTY W/STENT Right 09/26/2022 Microstent CANALOPLASTY W/STENT Left 11/07/2022 CAROTID ENDARTERECTOMY Bilateral PAST SURGICAL HISTORY OF Left 2012 Lt elbow cyst excision PAST SURGICAL HISTORY OF L knee arthroscopic surgery REMV CATARACT EXTRACAP,INSERT LENS Right 09/26/2022 REMV CATARACT EXTRACAP,INSERT LENS Left 11/07/2022 SN60WF +22.5 D TEAEC W/PATCH GRF CAROTID VERTB SUBCLAV NECK INC 02/16/2008 right CEA SOCIAL HISTORY Social History Tobacco Use Smoking status: Former Packs/day: 0.50 Years: 15.00 Pack years: 7.50 Types: Cigarettes Smokeless tobacco: Never Tobacco comments: 1 pack per 4 to 5 days (started 10 to 15 years ago)--as of 12/15/15 Vaping Use Vaping Use: Never used Substance Use Topics Alcohol use: Not Currently Drug use: Not Currently MEDICATIONS: citalopram (CELEXA) 40 mg tablet Take 1 tablet by mouth once daily. rosuvastatin (CRESTOR) 40 mg tablet Take 1 tablet by mouth once daily. amLODIPine (NORVASC) 5 mg tablet Take 1 tablet by mouth once daily. tamsulosin (FLOMAX) 0.4 mg TAKE 1 CAPSULE BY MOUTH EVERY DAY AT BEDTIME clopidogrel (PLAVIX) 75 mg tablet Take 1 tablet by mouth once daily. alendronate (FOSAMAX) 70 mg tablet Take 1 tablet by mouth one time a week. Take with a full glass of water, on an empty stomach; do NOT lie down for 30minutes. trospium (SANCTURA) 20 mg tablet Take 20 mg by mouth twice daily. calcium carbonate-vitamin D3 1,000 mg(2,500 mg)-800 unit tab Take 1,000 mg by mouth once daily. albuterol HFA (PROAIR HFA) 90 mcg/actuation inhaler Inhale 2 Puffs as instructed every 4 hours as needed for up to 15 days. cholecalciferol, Vitamin D3, (VITAMIN D3) 50,000 unit cap capsule Take 1 capsule by mouth once each week. prednisoLONE acetate (PRED FORTE) 1 % ophthalmic suspension Use 1 Drop in the left eye every hour. (Patient not taking: Reported on 01/21/2023) mometasone-formoterol (DULERA) 100-5 mcg/actuation inhaler Inhale 2 Puffs as instructed twice daily. (Patient taking differently: Inhale 2 Puffs as instructed as needed.) ALLERGIES: ALLERGIES Allergen Reactions Seasonal Allergies Other: See Comments Sinus, runny nose PHYSICAL EXAM: BP 127/66 (BP Site: Right Arm) Pulse 65 General: Alert and oriented, No acute distress Integumentary: Normal color, no rash, no lesions. HEENT: EOM, pupils equal, round and reactive. Cardiovascular: Normal S1 & S2, no rubs, murmurs or gallops. No JVD., Pulse regular. Lungs: Normal breath sounds, no wheezes or crackles. Abdomen: Soft, non-tender, no rigidity. Extremities: No deformity, no edema or tenderness, no joint swelling or clubbing. Neurological: Normal cognition and motor skills. Vascular: Carotid Pulse Right: Normal - Left: Normal Brachial Pulse Right: Normal - Left: Normal Radial Pulse Right: Normal - Left: Normal Diagnostic tests reviewed for today's visit: Most recent imaging CT angiogram head and neck patent bilateral ICA repairs with no significant stenosis less than 50% bilaterally Stable left ophthalmic artery dilation at 5 mm per my measurement LEONARDO bilateral lower extremity 0.63 on the right 0.67 on the left IMPRESSION: Mr. Gomez is a 67 year old male peripheral arterial disease status post revascularization and previously symptomatic carotid artery stenosis status post revascularization. Imaging from today demonstrates patent bilateral cervical carotid repair with no evidence of restenosis. He continues to be asymptomatic. 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 He is ambulating with no symptoms of claudication with stable bilateral LEONARDO He continues to smoke at this time and is working on smoking cessation. PLAN and RECOMMENDATIONS: Continue optimal medical therapy with aspirin as well as statin Counseled the patient again about smoking cessation and the risks of stroke, [place], and limb loss among the problems that he may face secondary to tobacco abuse. He did not need any medications to assist in the smoking cessation and he said he will be able to quit cold turkey on his own I explained to him the difference in surveillance with duplex and velocities in discrepancies between the CTA and the duplex. As such, we will monitor him at a 6-month interval with bilateral carotid artery duplex. Regarding his left ophthalmic artery aneurysm we will continue to monitor and I will refer him back to his neurologist for further surveillance. SIGNATURE: Carlos A Kennedy MD, MD PATIENT NAME: Denny Gomez DATE: January 21, 2023 TIME: 11:58 AM documented in this encounter [facility] 01-21-2023 Note HNO ID: [id number] Author: RT Gabriella(R) Service: Radiology Author Type: Technologist Type: Progress Notes Filed: 01/21/2023 10:27 AM Note Text: Radiology Service Progress Note PATIENT NAME: Denny Gomez DATE OF SERVICE: January 21, 2023 TIME: 10:24 AM PATIENT IDENTITY VERIFICATION COMPLETED USING TWO (2) IDENTIFIERS: Name and Date of confirmed by patient verbally. FALL SCREENING: Has the patient had 2 falls in the last year or 1 fall with injury or currently using an Ambulatory Assistive Device (Walker, Cane, Wheelchair, Crutches, etc.)? No PATIENT GENDER DATA: Male PATIENT RELEVANT IMPLANT DATA REVIEWED: Yes RADIOLOGY DEPARTMENT: CT; Exam(s) Completed: CTA Brain and CTA Neck PERIPHERAL IV DATA: Site assessment: Clean,Dry and Intact, Site disposition Discontinued SIGNED BY: RT Gabriella(R) January 21, 2023 10:24 AM [facility] 01-21-2023 Note HNO ID: [id number] Author: Sherif Albrecht RN Service: Nursing Author Type: Registered Nurse Type: Progress Notes Filed: 01/21/2023 10:18 AM Note Text: Radiology Service Progress Note DATE OF SERVICE: January 21, 2023 TIME: 9:38 AM PATIENT WEIGHT: 156 LBS PATIENT IDENTITY VERIFICATION COMPLETED USING TWO (2) STANDARD IDENTIFIERS: Name and Date of confirmed by patient verbally. FALL SCREENING: Has the patient had 2 falls in the last year or 1 fall with injury or currently using an Ambulatory Assistive Device (Walker, Cane, Wheelchair, Crutches, etc.)? No PATIENT GENDER DATA: Male ALLERGIES: Reviewed and unchanged CONTRAST ALLERGY: No EXAM: CT -CONTRAST INDUCED NEPHROPATHY RISK FACTORS: Patient age > 60 years CREATININE: Creatinine Date Value Ref Range Status 08/23/2022 0.88 0.73 - 1.22 mg/dL Final 06/18/2022 0.93 0.73 - 1.22 mg/dL Final Creatinine (POCT) Date Value Ref Range Status 01/21/2023 0.90 0.7 - 1.4 mg/dL Final eGFR (POCT) Date Value Ref Range Status 01/21/2023 >60 mL/min/1.73 m2 Final eGFR- Date Value Ref Range Status 08/30/2021 >60 Final P.O.C.T. RESULTS: POC done: Yes, See Lab Tab January 21, 2023 TREATMENT: No Hydration needed. IV SITE: Ambulatory: A peripheral IV was started in the Left antecubital site with a Angio cath: 20 gauge. IV SITE APPEARANCE: Clean,Dry and Intact SIGNATURE: Sherif Albrecht RN PATIENT NAME: Denny Gomez DATE: January 21, 2023 TIME: 9:38 AM [facility] 01-21-2023 Note HNO ID: [id number] Author: Kellie Fontenot MA Service: ? Author Type: Early Morning Babysitter Type: Progress Notes Filed: 01/21/2023 9:56 AM Note Text: POPULATION HEALTH NAVIGATION OUTREACH Action/FYI Return in about 6 months (around 12/16/2022) for 6 months follow up. No active mychart Patient Identified by Name and : NO Outreach Outcome/Action Unable to reach patient: Left message Did you use a PCP flex slot to schedule this appointment? N/A Reason for Outreach Care Gap or Scheduling/Wellness visits Payer: Payor: [employer] MEDICARE / Plan: [employer] MED[employer] PPO / Product Type: PPO / Care Gap Reviewed:: Follow-up appointment Colorectal Cancer Screening Reminder: Reminder note to check Health Maintenance for items below Health Maintenance items due: SHINGRIX VACCINE(1 of 2) Never done ADVANCE DIRECTIVE DISCUSSION due on 08/04/2022 COLORECTAL CANCER SCREENING due on 10/16/2022 Navigation Signature: Kellie Fontenot MA January 21, 2023 9:11 AM [facility] 01-21-2023 History of Present illness Narrative Radiology Service Progress Note DATE OF SERVICE: January 21, 2023 TIME: 9:38 AM PATIENT WEIGHT: 156 LBS PATIENT IDENTITY VERIFICATION COMPLETED USING TWO (2) STANDARD IDENTIFIERS: Name and Date of confirmed by patient verbally. FALL SCREENING: Has the patient had 2 falls in the last year or 1 fall with injury or currently using an Ambulatory Assistive Device (Walker, Cane, Wheelchair, Crutches, etc.)? No PATIENT GENDER DATA: Male ALLERGIES: Reviewed and unchanged CONTRAST ALLERGY: No EXAM: CT -CONTRAST INDUCED NEPHROPATHY RISK FACTORS: Patient age > 60 years CREATININE: Creatinine Date Value Ref Range Status 08/23/2022 0.88 0.73 - 1.22 mg/dL Final 06/18/2022 0.93 0.73 - 1.22 mg/dL Final Creatinine (POCT) Date Value Ref Range Status 01/21/2023 0.90 0.7 - 1.4 mg/dL Final eGFR (POCT) Date Value Ref Range Status 01/21/2023 >60 mL/min/1.73 m2 Final eGFR- Date Value Ref Range Status 08/30/2021 >60 Final P.O.C.T. RESULTS: POC done: Yes, See Lab Tab January 21, 2023 TREATMENT: No Hydration needed. IV SITE: Ambulatory: A peripheral IV was started in the Left antecubital site with a Angio cath: 20 gauge. IV SITE APPEARANCE: Clean,Dry and Intact SIGNATURE: Sherif Albrecht RN PATIENT NAME: Denny Gomez DATE: January 21, 2023 TIME: 9:38 AM Radiology Service Progress Note PATIENT NAME: Denny Gomez DATE OF SERVICE: January 21, 2023 TIME: 10:24 AM PATIENT IDENTITY VERIFICATION COMPLETED USING TWO (2) IDENTIFIERS: Name and Date of confirmed by patient verbally. FALL SCREENING: Has the patient had 2 falls in the last year or 1 fall with injury or currently using an Ambulatory Assistive Device (Walker, Cane, Wheelchair, Crutches, etc.)? No PATIENT GENDER DATA: Male PATIENT RELEVANT IMPLANT DATA REVIEWED: Yes RADIOLOGY DEPARTMENT: CT; Exam(s) Completed: CTA Brain and CTA Neck PERIPHERAL IV DATA: Site assessment: Clean,Dry and Intact, Site disposition Discontinued SIGNED BY: RT Gabriella(R) January 21, 2023 10:24 AM documented in this encounter [facility] 01-21-2023 History of Present illness Narrative POPULATION HEALTH NAVIGATION OUTREACH Action/FYI Return in about 6 months (around 12/16/2022) for 6 months follow up. No active mychart Patient Identified by Name and : NO Outreach Outcome/Action Unable to reach patient: Left message Did you use a PCP flex slot to schedule this appointment? N/A Reason for Outreach Care Gap or Scheduling/Wellness visits Payer: Payor: [employer] MEDICARE / Plan: [employer] MED[employer]ARE PPO / Product Type: PPO / Care Gap Reviewed:: Follow-up appointment Colorectal Cancer Screening Reminder: Reminder note to check Health Maintenance for items below Health Maintenance items due: SHINGRIX VACCINE(1 of 2) Never done ADVANCE DIRECTIVE DISCUSSION due on 08/04/2022 COLORECTAL CANCER SCREENING due on 10/16/2022 Navigation Signature: Kellie Fontenot MA January 21, 2023 9:11 AM documented in this encounter [facility] 12-27-2022 Note HNO ID: [id number] Author: Massiel Harrell MD Service: ? Author Type: Physician Type: Progress Notes Filed: 12/27/2022 10:11 AM Note Text: 1. Status post cataract extraction and insertion of intraocular lens of right eye - ICD9: V45.61, V43.1, ICD10: Z98.41, Z96.1 (primary diagnosis) 2. Status post cataract extraction and insertion of intraocular lens of left eye - ICD9: V45.61, V43.1, ICD10: Z98.42, Z96.1 3. Primary open angle glaucoma (POAG) of right eye, moderate stage - ICD9: 365.11, 365.72, ICD10: H40.1112 4. Primary open angle glaucoma (POAG) of left eye, moderate stage - ICD9: 365.11, 365.72, ICD10: H40.1122 Status Post Cataract Surgery with Monofocal Intraocular lens Implant, Canaloplasty with the Omni surgical system, and Hydrus Right Eye (09/26/2022) Status Post Cataract Surgery with Monofocal Intraocular lens Implant, Canaloplasty with the Omni surgical system, and Hydrus Left Eye (11/07/2022) Current Ophthalmic Meds Continue: Systane Complete solution instill 1 drop 3 times daily Both Eyes. See Dr. Isidra Kelsey for refraction and glasses I have confirmed and edited as necessary the relevant ophthalmic history, review of systems, surgical history, and ophthalmological examination findings as obtained by the ophthalmic technical staff. I have seen and examined Denny Gomez. I have discussed the examination findings, diagnosis, and treatment options with Denny Gomez and/or his family. I have also reviewed and agree with the assessment and plan as stated above and agree with all its relevant components. I gave the patient the opportunity to ask questions about the findings, diagnosis, and treatment options. [facility] 12-04-2022 Miscellaneous Notes Spoke to patient and rescheduled 01/17/[address] Kennedy on 01/21/23. Patient aware of time, date, and location with mailed reminder at the request of the patient. documented in this encounter [facility] 11-18-2022 Miscellaneous Notes ORI 08/23/22 NOV 12/16/22 Yolanda Perez MA Patient has been identified by name and date of : Yes Requested Prescriptions Pending Prescriptions Disp Refills citalopram (CELEXA) 40 mg tablet 90 tablet 3 Sig: Take 1 tablet by mouth once daily. RX INSTRUCTIONS: Patient aware RX will be sent to pharmacy. No need to notify patient. Rachana Trejo documented in this encounter [facility] 11-15-2022 Note HNO ID: [id number] Author: Massiel Harrell MD Service: ? Author Type: Physician Type: Progress Notes Filed: 11/15/2022 11:06 AM Note Text: ASSESSMENT/PLAN: 1. Status post cataract extraction and insertion of intraocular lens of right eye - ICD9: V45.61, V43.1, ICD10: Z98.41, Z96.1 (primary diagnosis) 2. Status post cataract extraction and insertion of intraocular lens of left eye - ICD9: V45.61, V43.1, ICD10: Z98.42, Z96.1 3. Primary open angle glaucoma (POAG) of right eye, moderate stage - ICD9: 365.11, 365.72, ICD10: H40.1112 4. Primary open angle glaucoma (POAG) of left eye, moderate stage - ICD9: 365.11, 365.72, ICD10: H40.1122 Status Post Cataract Surgery with Monofocal Intraocular lens Implant, Canaloplasty with the Omni surgical system, and Hydrus Right Eye (09/26/2022) Status Post Cataract Surgery with Monofocal Intraocular lens Implant, Canaloplasty with the Omni surgical system, and Hydrus Left Eye (11/07/2022) Current Ophthalmic Meds keTORolac (ACULAR) 0.5 % ophthalmic solution Use 1 Drop in the left eye four times daily. prednisoLONE acetate (PRED FORTE) 1 % ophthalmic suspension Use 1 Drop in the left eye every hour. Continue: Systane Complete solution instill 1 drop 3 times daily Both Eyes. Massiel Harrell MD I have confirmed and edited as necessary the relevant ophthalmic history, review of systems, surgical history, and ophthalmological examination findings as obtained by the ophthalmic technical staff. I have seen and examined Denny Gomez. I have discussed the examination findings, diagnosis, and treatment options with Denny Gomez and/or his family. I have also reviewed and agree with the assessment and plan as stated above and agree with all its relevant components. I gave the patient the opportunity to ask questions about the findings, diagnosis, and treatment options. [facility] 11-11-2022 Note HNO ID: [id number] Author: Massiel Harrell MD Service: ? Author Type: Physician Type: Progress Notes Filed: 11/11/2022 8:20 AM Note Text: ASSESSMENT/PLAN: 1. Primary open angle glaucoma (POAG) of right eye, moderate stage - ICD9: 365.11, 365.72, ICD10: H40.1112 (primary diagnosis) 2. Status post cataract extraction and insertion of intraocular lens of right eye - ICD9: V45.61, V43.1, ICD10: Z98.41, Z96.1 3. Primary open angle glaucoma (POAG) of left eye, moderate stage - ICD9: 365.11, 365.72, ICD10: H40.1122 4. Status post cataract extraction and insertion of intraocular lens of left eye - ICD9: V45.61, V43.1, ICD10: Z98.42, Z96.1 Current Ophthalmic Meds keTORolac (ACULAR) 0.5 % ophthalmic solution Use 1 Drop in the left eye four times daily. prednisoLONE acetate (PRED FORTE) 1 % ophthalmic suspension Use 1 Drop in the left eye every 2 hours. atropine 1 % ophthalmic solution Use 1 Drop in the left eye twice daily. Continue: Systane Complete solution instill 1 drop 3 times daily Both Eyes. Massiel Harrell MD I have confirmed and edited as necessary the relevant ophthalmic history, review of systems, surgical history, and ophthalmological examination findings as obtained by the ophthalmic technical staff. I have seen and examined Denny Gomez. I have discussed the examination findings, diagnosis, and treatment options with Denny Gomez and/or his family. I have also reviewed and agree with the assessment and plan as stated above and agree with all its relevant components. I gave the patient the opportunity to ask questions about the findings, diagnosis, and treatment options. [facility] 11-11-2022 Instructions Massiel Harrell MD - 11/11/2022 8:19 AM EDT Current Ophthalmic Meds keTORolac (ACULAR) 0.5 % ophthalmic solution Use 1 Drop in the left eye four times daily. prednisoLONE acetate (PRED FORTE) 1 % ophthalmic suspension Use 1 Drop in the left eye every 2 hours. atropine 1 % ophthalmic solution Use 1 Drop in the left eye twice daily. Continue: Systane Complete solution instill 1 drop 3 times daily Both Eyes. If you have any questions please contact our office at [phone]. After office hours or on the weekend, please call Dr. Harrell on his cell phone at [phone]. documented in this encounter [facility] 11-11-2022 History of Present illness Narrative ASSESSMENT/PLAN: 1. Primary open angle glaucoma (POAG) of right eye, moderate stage - ICD9: 365.11, 365.72, ICD10: H40.1112 (primary diagnosis) 2. Status post cataract extraction and insertion of intraocular lens of right eye - ICD9: V45.61, V43.1, ICD10: Z98.41, Z96.1 3. Primary open angle glaucoma (POAG) of left eye, moderate stage - ICD9: 365.11, 365.72, ICD10: H40.1122 4. Status post cataract extraction and insertion of intraocular lens of left eye - ICD9: V45.61, V43.1, ICD10: Z98.42, Z96.1 Current Ophthalmic Meds keTORolac (ACULAR) 0.5 % ophthalmic solution Use 1 Drop in the left eye four times daily. prednisoLONE acetate (PRED FORTE) 1 % ophthalmic suspension Use 1 Drop in the left eye every 2 hours. atropine 1 % ophthalmic solution Use 1 Drop in the left eye twice daily. Continue: Systane Complete solution instill 1 drop 3 times daily Both Eyes. Massiel Harrell MD I have confirmed and edited as necessary the relevant ophthalmic history, review of systems, surgical history, and ophthalmological examination findings as obtained by the ophthalmic technical staff. I have seen and examined Denny Gomez. I have discussed the examination findings, diagnosis, and treatment options with Denny Gomez and/or his family. I have also reviewed and agree with the assessment and plan as stated above and agree with all its relevant components. I gave the patient the opportunity to ask questions about the findings, diagnosis, and treatment options. documented in this encounter [facility] 11-08-2022 Note HNO ID: [id number] Author: Massiel Harrell MD Service: ? Author Type: Physician Type: Progress Notes Filed: 11/08/2022 9:37 AM Note Text: ASSESSMENT/PLAN: 1. Status post cataract extraction and insertion of intraocular lens of left eye - ICD9: V45.61, V43.1, ICD10: Z98.42, Z96.1 (primary diagnosis) 2. Primary open angle glaucoma (POAG) of left eye, moderate stage - ICD9: 365.11, 365.72, ICD10: H40.1122 S/p cataract extraction 11/07/2022 left eye Canaloplasty with Hydrus stent left eye 10/07/2022 Prednisolone 1 drop in the left eye every hour (while awake)-pink lid Vigamox 1 drop in the left eye four times daily-peña lid Acular 1 drop in the left eye four times daily-coreas lid Atropine 1 drop in the left eye four times daily- Red lid Systane Complete Artificial Tears - Use 1 Drop into both eyes three times a day. 3. Primary open angle glaucoma (POAG) of right eye, moderate stage - ICD9: 365.11, 365.72, ICD10: H40.1112 4. Status post cataract extraction and insertion of intraocular lens of right eye - ICD9: V45.61, V43.1, ICD10: Z98.41, Z96.1 S/p cataract extraction right eye 09/26/2022 Canaloplasty with Hydrus stent right eye Massiel Harrell MD I have confirmed and edited as necessary the relevant ophthalmic history, review of systems, surgical history, and ophthalmological examination findings as obtained by the ophthalmic technical staff. I have seen and examined Denny Gomez. I have discussed the examination findings, diagnosis, and treatment options with Denny Gomez and/or his family. I have also reviewed and agree with the assessment and plan as stated above and agree with all its relevant components. I gave the patient the opportunity to ask questions about the findings, diagnosis, and treatment options. [facility] 11-08-2022 Instructions Massiel Harrell MD - 11/08/2022 8:17 AM EDT Prednisolone 1 drop in the left eye every hour (while awake)-pink lid Vigamox 1 drop in the left eye four times daily-peña lid Acular 1 drop in the left eye four times daily-coreas lid Atropine 1 drop in the left eye four times daily- Red lid Systane Complete Artificial Tears - Use 1 Drop into both eyes three times a day. If you have any questions please contact our office at [phone]. After office hours or on the weekend, please call Dr. Harrell on his cell phone at [phone]. documented in this encounter [facility] 11-08-2022 History of Present illness Narrative ASSESSMENT/PLAN: 1. Status post cataract extraction and insertion of intraocular lens of left eye - ICD9: V45.61, V43.1, ICD10: Z98.42, Z96.1 (primary diagnosis) 2. Primary open angle glaucoma (POAG) of left eye, moderate stage - ICD9: 365.11, 365.72, ICD10: H40.1122 S/p cataract extraction 11/07/2022 left eye Canaloplasty with Hydrus stent left eye 10/07/2022 Prednisolone 1 drop in the left eye every hour (while awake)-pink lid Vigamox 1 drop in the left eye four times daily-peña lid Acular 1 drop in the left eye four times daily-coreas lid Atropine 1 drop in the left eye four times daily- Red lid Systane Complete Artificial Tears - Use 1 Drop into both eyes three times a day. 3. Primary open angle glaucoma (POAG) of right eye, moderate stage - ICD9: 365.11, 365.72, ICD10: H40.1112 4. Status post cataract extraction and insertion of intraocular lens of right eye - ICD9: V45.61, V43.1, ICD10: Z98.41, Z96.1 S/p cataract extraction right eye 09/26/2022 Canaloplasty with Hydrus stent right eye Massiel Harrell MD I have confirmed and edited as necessary the relevant ophthalmic history, review of systems, surgical history, and ophthalmological examination findings as obtained by the ophthalmic technical staff. I have seen and examined Denny Gomez. I have discussed the examination findings, diagnosis, and treatment options with Denny Gomez and/or his family. I have also reviewed and agree with the assessment and plan as stated above and agree with all its relevant components. I gave the patient the opportunity to ask questions about the findings, diagnosis, and treatment options. documented in this encounter [facility] 11-07-2022 Note Post Operative Note: Post-Procedure Diagnosis: 1. Primary Open Angle Glaucoma Left eye, Moderate Stage 2. 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 Cataract Extraction with Intraocular Lens Implant Left Eye with Hydrus Microstent 2. Canaloplasty Left Eye using OMNI Surgical System Surgeon: Massiel Harrell MD Resident/Fellow/Other Supervisor Paste Plant: None Estimated Blood Loss (mL): none Specimen: no Findings: 1. Primary Open Angle Glaucoma Left eye, Moderate Stage 2. 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 The operative eye was dilated in the pre-op area. The patient was taken to the operating room and time out was performed before starting the procedure. Combined anesthesia and IV sedation and topical Tetracaine eye drops were given. A peribulbar block was given using 1% Lidocaine with Epinephrine. The operative eye was prepped and draped in the standard sterile ophthalmic fashion in preparation for ophthalmic surgery. A Deuce wire speculum was then placed between the eyelids and the operative microscope was placed over the operative eye. A paracentesis incision was made approximately 30 degrees away from the planned surgical incision site with the help of the MVR blade. 1% Lidocaine MPF with Phenylephrine 1.5% PF was injected into the anterior chamber through the paracentesis incision. A near limbal clear corneal incision was fashioned in the temporal quadrant just outside the vascular arcade. Viscoat was injected in the anterior chamber to firm the eye. A bent needle cystotome and Utrata forceps were used to create a continuous curvilinear capsulorhexis. Balanced salt solution was injected beneath the anterior capsule to hydrodissect the nucleus free from adjacent cortex and capsule. The nucleus of the cataractous lens was removed with phacoemulsification instrument. The residual cortex was aspirated with the irrigation/aspiration hand piece. The posterior capsule was then polished with the help of soft irrigation/aspiration tip. Provisc viscoelastic was then injected into the eye to reform the anterior chamber and to open the capsular bag. Intraocular lens implant was taken from the sterile wrapping, inspected under the surgical microscope and found to be in good condition. The intraocular lens implant with the power of 22.5D was injected into the capsular bag. The viscoelastic material was aspirated from the anterior chamber and from behind the lens optics. The anterior chamber was inflated with the help of BSS to moderate tension and the edges of the surgical incision were hydrated with BSS. Miochol was instilled into the anterior chamber. A second clear corneal incision was made with the help of a 1.5mm blade for the Hydrus Implant. The anterior chamber was inflated with Discovisc and the patients head was rotated to the right side and the microscope was rotated to the left. Using the gonio-prism the nasal trabecular meshwork was brought into clear view. The Hydrus micro-stent was placed in the nasal trabecular meshwork. A 180 degree canaloplasty was done in the upper nasal quadrant with the OMNI surgical system. There was bleeding into the anterior chamber which was irrigated out with the help of the I and A handpiece. The anterior chamber was formed with BSS. Vigamox was injected into the anterior chamber and into the capsular bag through the paracentesis incision. The surgical incision was inspected and found to be water tight. The wire speculum and the drapes were removed. Pred Forte eye drops, Acular eye drops and Betadine 5% sterile ophthalmic solution were instilled into the conjunctival sac. Tobrex ointment was instilled into the left eye. The eye was patched and a shield was applied. The patient tolerated the procedure well and was taken to the recovery room in stable condition. Attestation: Note Completion: Attending AttestationI performed the procedure without a resident Electronic Signatures: Massiel Harrell) (Signed 07-Nov-2022 10:02) Authored: Post Operative Note, Note Completion Last Updated: 07-Nov-2022 10:02 by Massiel Harrell) [facility] 11-07-2022 Miscellaneous Notes Post Operative Note: Post-Procedure Diagnosis: 1. Primary Open Angle Glaucoma Left eye, Moderate Stage 2. 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 Cataract Extraction with Intraocular Lens Implant Left Eye with Hydrus Microstent 2. Canaloplasty Left Eye using OMNI Surgical System Surgeon: Massiel Harrell MD Resident/Fellow/Other Supervisor Paste Plant: None Estimated Blood Loss (mL): none Specimen: no Findings: 1. Primary Open Angle Glaucoma Left eye, Moderate Stage 2. 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 The operative eye was dilated in the pre-op area. The patient was taken to the operating room and time out was performed before starting the procedure. Combined anesthesia and IV sedation and topical Tetracaine eye drops were given. A peribulbar block was given using 1% Lidocaine with Epinephrine. The operative eye was prepped and draped in the standard sterile ophthalmic fashion in preparation for ophthalmic surgery. A Deuce wire speculum was then placed between the eyelids and the operative microscope was placed over the operative eye. A paracentesis incision was made approximately 30 degrees away from the planned surgical incision site with the help of the MVR blade. 1% Lidocaine MPF with Phenylephrine 1.5% PF was injected into the anterior chamber through the paracentesis incision. A near limbal clear corneal incision was fashioned in the temporal quadrant just outside the vascular arcade. Viscoat was injected in the anterior chamber to firm the eye. A bent needle cystotome and Utrata forceps were used to create a continuous curvilinear capsulorhexis. Balanced salt solution was injected beneath the anterior capsule to hydrodissect the nucleus free from adjacent cortex and capsule. The nucleus of the cataractous lens was removed with phacoemulsification instrument. The residual cortex was aspirated with the irrigation/aspiration hand piece. The posterior capsule was then polished with the help of soft irrigation/aspiration tip. Provisc viscoelastic was then injected into the eye to reform the anterior chamber and to open the capsular bag. Intraocular lens implant was taken from the sterile wrapping, inspected under the surgical microscope and found to be in good condition. The intraocular lens implant with the power of 22.5D was injected into the capsular bag. The viscoelastic material was aspirated from the anterior chamber and from behind the lens optics. The anterior chamber was inflated with the help of BSS to moderate tension and the edges of the surgical incision were hydrated with BSS. Miochol was instilled into the anterior chamber. A second clear corneal incision was made with the help of a 1.5mm blade for the Hydrus Implant. The anterior chamber was inflated with Discovisc and the patients head was rotated to the right side and the microscope was rotated to the left. Using the gonio-prism the nasal trabecular meshwork was brought into clear view. The Hydrus micro-stent was placed in the nasal trabecular meshwork. A 180 degree canaloplasty was done in the upper nasal quadrant with the OMNI surgical system. There was bleeding into the anterior chamber which was irrigated out with the help of the I and A handpiece. The anterior chamber was formed with BSS. Vigamox was injected into the anterior chamber and into the capsular bag through the paracentesis incision. The surgical incision was inspected and found to be water tight. The wire speculum and the drapes were removed. Pred Forte eye drops, Acular eye drops and Betadine 5% sterile ophthalmic solution were instilled into the conjunctival sac. Tobrex ointment was instilled into the left eye. The eye was patched and a shield was applied. The patient tolerated the procedure well and was taken to the recovery room in stable condition. Attestation: Note Completion: Attending Attestation I performed the procedure without a resident Electronic Signatures: Massiel Harrell) (Signed 07-Nov-2022 10:02) Authored: Post Operative Note, Note Completion Last Updated: 07-Nov-2022 10:02 by Massiel Harrell () documented in this encounter [facility] Work Phone: 11-07-2022 Note Formatting of this n ote is different from the original. Post Operative Note: Post-Procedure Diagnosis: 1. Primary Open Angle Glaucoma Left eye, Moderate Stage 2. 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 Cataract Extraction with Intraocular Lens Implant Left Eye with Hydrus Microstent 2. Canaloplasty Left Eye using OMNI Surgical System Surgeon: Massiel Harrell MD Resident/Fellow/Other Supervisor Paste Plant: None Estimated Blood Loss (mL): none Specimen: no Findings: 1. Primary Open Angle Glaucoma Left eye, Moderate Stage 2. 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 The operative eye was dilated in the pre-op area. The patient was taken to the operating room and time out was performed before starting the procedure. Combined anesthesia and IV sedation and topical Tetracaine eye drops were given. A peribulbar block was given using 1% Lidocaine with Epinephrine. The operative eye was prepped and draped in the standard sterile ophthalmic fashion in preparation for ophthalmic surgery. A Deuce wire speculum was then placed between the eyelids and the operative microscope was placed over the operative eye. A paracentesis incision was made approximately 30 degrees away from the planned surgical incision site with the help of the MVR blade. 1% Lidocaine MPF with Phenylephrine 1.5% PF was injected into the anterior chamber through the paracentesis incision. A near limbal clear corneal incision was fashioned in the temporal quadrant just outside the vascular arcade. Viscoat was injected in the anterior chamber to firm the eye. A bent needle cystotome and Utrata forceps were used to create a continuous curvilinear capsulorhexis. Balanced salt solution was injected beneath the anterior capsule to hydrodissect the nucleus free from adjacent cortex and capsule. The nucleus of the cataractous lens was removed with phacoemulsification instrument. The residual cortex was aspirated with the irrigation/aspiration hand piece. The posterior capsule was then polished with the help of soft irrigation/aspiration tip. Provisc viscoelastic was then injected into the eye to reform the anterior chamber and to open the capsular bag. Intraocular lens implant was taken from the sterile wrapping, inspected under the surgical microscope and found to be in good condition. The intraocular lens implant with the power of 22.5D was injected into the capsular bag. The viscoelastic material was aspirated from the anterior chamber and from behind the lens optics. The anterior chamber was inflated with the help of BSS to moderate tension and the edges of the surgical incision were hydrated with BSS. Miochol was instilled into the anterior chamber. A second clear corneal incision was made with the help of a 1.5mm blade for the Hydrus Implant. The anterior chamber was inflated with Discovisc and the patients head was rotated to the right side and the microscope was rotated to the left. Using the gonio-prism the nasal trabecular meshwork was brought into clear view. The Hydrus micro-stent was placed in the nasal trabecular meshwork. A 180 degree canaloplasty was done in the upper nasal quadrant with the OMNI surgical system. There was bleeding into the anterior chamber which was irrigated out with the help of the I and A handpiece. The anterior chamber was formed with BSS. Vigamox was injected into the anterior chamber and into the capsular bag through the paracentesis incision. The surgical incision was inspected and found to be water tight. The wire speculum and the drapes were removed. Pred Forte eye drops, Acular eye drops and Betadine 5% sterile ophthalmic solution were instilled into the conjunctival sac. Tobrex ointment was instilled into the left eye. The eye was patched and a shield was applied. The patient tolerated the procedure well and was taken to the recovery room in stable condition. Attestation: Note Completion: Attending Attestation I performed the procedure without a resident Electronic Signatures: Massiel Harrell) (Signed 07-Nov-2022 10:02) Authored: Post Operative Note, Note Completion Last Updated: 07-Nov-2022 10:02 by Massiel Harrell) [facility] Work Phone: 11-07-2022 Note History & Physical R eviewed: I have reviewed the History and Physical dated: 28-Oct-2022 History and Physical reviewed and relevant findings noted. Patient examined to review pertinent physical findings.: No significant changes Home Medications Reviewed: no changes noted Allergies Reviewed: no changes noted ERAS (Enhanced Recovery After Surgery): ERAS Patient: no Consent: COVID-19 Consent: COVID-19 Risk ConsentSurgeon has reviewed mcclure risks related to the risk of sloane COVID-19 and if they contract COVID-19 what the risks are. Electronic Signatures: Massiel Harrell) (Signed 07-Nov-2022 07:34) Authored: History & Physical Reviewed, ERAS, Consent, Note Completion Last Updated: 07-Nov-2022 07:34 by Massiel Harrell) [facility] 11-07-2022 History and physical note History & Physical Reviewed: I have reviewed the History and Physical dated: 28-Oct-2022 History and Physical reviewed and relevant findings noted. Patient examined to review pertinent physical findings.: No significant changes Home Medications Reviewed: no changes noted Allergies Reviewed: no changes noted ERAS (Enhanced Recovery After Surgery): ERAS Patient: no Consent: COVID-19 Consent: COVID-19 Risk Consent Surgeon has reviewed mcclure risks related to the risk of sloane COVID-19 and if they contract COVID-19 what the risks are. Electronic Signatures: Massiel Harrell) (Signed 07-Nov-2022 07:34) Authored: History & Physical Reviewed, ERAS, Consent, Note Completion Last Updated: 07-Nov-2022 07:34 by Massiel Harrell) [facility] Work Phone: 11-07-2022 History and physical note History & Physical Reviewed: I have reviewed the History and Physical dated: 28-Oct-2022 History and Physical reviewed and relevant findings noted. Patient examined to review pertinent physical findings.: No significant changes Home Medications Reviewed: no changes noted Allergies Reviewed: no changes noted ERAS (Enhanced Recovery After Surgery): ERAS Patient: no Consent: COVID-19 Consent: COVID-19 Risk Consent Surgeon has reviewed mcclure risks related to the risk of sloane COVID-19 and if they contract COVID-19 what the risks are. Electronic Signatures: Massiel Harrell) (Signed 07-Nov-2022 07:34) Authored: History & Physical Reviewed, ERAS, Consent, Note Completion Last Updated: 07-Nov-2022 07:34 by Massiel Harrell) documented in this encounter [facility] Work Phone: 10-28-2022 Note HNO ID: [id number] Author: Massiel Harrell MD Service: ? Author Type: Physician Type: Progress Notes Filed: 10/28/2022 11:05 AM Note Text: ASSESSMENT/PLAN: 1. Primary open angle glaucoma (POAG) of left eye, moderate stage - ICD9: 365.11, 365.72, ICD10: H40.1122 (primary diagnosis) Target Intraocular pressure: 12 Due to the following reason/s: Intraocular pressure not at desired target pressure An inability to comply with medication requirements due to physical or cognitive function Patient reported that the side effects of the medication/s are negatively impacting the patient's quality of life Patient does not desire an additional medication to be added to their existing regimen Patient is having difficulty with their co-payment obligations Canaloplasty with omni surgical system and hydrus microstent left eye is scheduled on 11/07/22 Continue Current Ophthalmic Meds dorzolamide-timolol (COSOPT) 22.3-6.8 mg/mL ophthalmic solution Use 1 Drop in the left eye twice daily. latanoprost (XALATAN) 0.005 % ophthalmic solution Use 1 Drop in the left eye daily at bedtime. 2. Combined forms of age-related cataract of left eye - ICD9: 366.19, ICD10: H25.812 Upon eye examination, patient was found to have a visually significant cataract left eye. Discussed cataract surgery with patient and different intraocular lens implant options with patient: basic monofocal intraocular lens implant, Toric intraocular lens implant, and presbyopia correction intraocular lens implant. In my medical opinion, based on medical history and ocular examination, cataract surgery with intraocular lens implant will correct patient's vision and improve quality of patient's daily living activities. Patient wishes to have traditional cataract surgery with basic intraocular lens left eye scheduled on 11/07/22. Patient wishes to have cataract surgery with the option stated above. Patient understands that an intraocular lens implant does not necessarily replace the need for glasses. Patient understands that it is impossible for the surgeon to inform him/her of every possible complication that may occur. The surgeon has answered all of the patient's questions. Patient understands that if he/she has a mature or dense cataract, pseudoexfoliation cataract, or history of use of Flomax, he/she may require the use of Maluyugin Ring and/or Vision Blue during surgery. Patient understands the risks, benefits, and alternatives to surgery. Cataract Presurgical Documentation Cataract: Left eye (OS) Current Visual Acuity Right Eye Distance SC 20/40 Left Eye Distance CC 20/40 Glare Testing: Left Eye High 20/80 Visual Function: Denny Gomez states that the decline in vision from the cataract impedes his abilities as listed in the HPI, as well as other activities of daily living. Denny Gomez has confirmed that he is no longer able to function adequately on a day-to-day basis because of his current visual condition. Further, it is my medical opinion that the cataract is the primary cause, or at least a significantly contributory cause of his visual dysfunction. With uncomplicated cataract surgery and lens implantation, it is my expectation that his visual function and quality of life will improve, significantly. The risks, benefits, alternatives, personnel and complications of cataract surgery with lens implantation were discussed with Denny Gomez in detail. he appeared to understand and asked that I proceed with plans for surgery. PHYSICAL EXAM: Vital Signs: Blood pressure 122/70, pulse 61. Respiratory: Normal breath sounds, no wheezing. CARD: Normal heart sounds 1 AND 2, normal sinus rhythm. 3. Primary open angle glaucoma (POAG) of right eye, moderate stage - ICD9: 365.11, 365.72, ICD10: H40.1112 4. Status post glaucoma surgery - ICD9: V45.69, ICD10: Z98.83 - S/P Canaloplasty using the OMNI Surgical System and Micro-stent- Right eye done 09/26/22 5. Status post cataract extraction and insertion of intraocular lens of right eye - ICD9: V45.61, V43.1, ICD10: Z98.41, Z96.1 - Continue Current Ophthalmic Meds keTORolac (ACULAR) 0.5 Use 1 Drop in the right eye three times daily for 3 days. prednisoLONE acetate (PRED FORTE) 1 % ophthalmic suspension Use 1 Drop in the right eye three times daily for 3 days. 6. Optic cupping of both eyes - ICD9: 377.14, ICD10: H47.233 - Stable / Monitor 7. Homonymous hemianopsia, right - ICD9: 368.46, ICD10: H53.461 - Stable / Monitor 8. Essential hypertension - ICD9: 401.9, ICD10: I10 9. Hypercholesteremia - ICD9: 272.0, ICD10: E78.00 - Continue to monitor with PCP I have confirmed and edited as necessary the relevant ophthalmic history, review of systems, surgical history, and ophthalmological examination findings as obtained by the ophthalmic technical staff. I have seen and examined Denny Gomez. I have discussed the examination findings, diag (more content not included)... [facility] 10-28-2022 Instructions Massiel Harrell MD - 10/28/2022 10:55 AM EDT Current Ophthalmic Meds keTORolac (ACULAR) 0.5 % ophthalmic solution Use 1 Drop in the right eye three times daily for 3 days. prednisoLONE acetate (PRED FORTE) 1 % ophthalmic suspension Use 1 Drop in the right eye three times daily for 3 days. dorzolamide-timolol (COSOPT) 22.3-6.8 mg/mL ophthalmic solution Use 1 Drop in the left eye twice daily. latanoprost (XALATAN) 0.005 % ophthalmic solution Use 1 Drop in the left eye daily at bedtime. If you have any questions please contact our office at [phone]. After office hours or on the weekend, please call Dr. Harrell on his cell phone at [phone]. documented in this encounter [facility] 10-28-2022 History of Present illness Narrative ASSESSMENT/PLAN: 1. Primary open angle glaucoma (POAG) of left eye, moderate stage - ICD9: 365.11, 365.72, ICD10: H40.1122 (primary diagnosis) Target Intraocular pressure: 12 Due to the following reason/s: Intraocular pressure not at desired target pressure An inability to comply with medication requirements due to physical or cognitive function Patient reported that the side effects of the medication/s are negatively impacting the patient's quality of life Patient does not desire an additional medication to be added to their existing regimen Patient is having difficulty with their co-payment obligations Canaloplasty with omni surgical system and hydrus microstent left eye is scheduled on 11/07/22 Continue Current Ophthalmic Meds dorzolamide-timolol (COSOPT) 22.3-6.8 mg/mL ophthalmic solution Use 1 Drop in the left eye twice daily. latanoprost (XALATAN) 0.005 % ophthalmic solution Use 1 Drop in the left eye daily at bedtime. 2. Combined forms of age-related cataract of left eye - ICD9: 366.19, ICD10: H25.812 Upon eye examination, patient was found to have a visually significant cataract left eye. Discussed cataract surgery with patient and different intraocular lens implant options with patient: basic monofocal intraocular lens implant, Toric intraocular lens implant, and presbyopia correction intraocular lens implant. In my medical opinion, based on medical history and ocular examination, cataract surgery with intraocular lens implant will correct patient's vision and improve quality of patient's daily living activities. Patient wishes to have traditional cataract surgery with basic intraocular lens left eye scheduled on 11/07/22. Patient wishes to have cataract surgery with the option stated above. Patient understands that an intraocular lens implant does not necessarily replace the need for glasses. Patient understands that it is impossible for the surgeon to inform him/her of every possible complication that may occur. The surgeon has answered all of the patient's questions. Patient understands that if he/she has a mature or dense cataract, pseudoexfoliation cataract, or history of use of Flomax, he/she may require the use of Maluyugin Ring and/or Vision Blue during surgery. Patient understands the risks, benefits, and alternatives to surgery. Cataract Presurgical Documentation Cataract: Left eye (OS) Current Visual Acuity Right Eye Distance SC 20/40 Left Eye Distance CC 20/40 Glare Testing: Left Eye High 20/80 Visual Function: Denny Gomez states that the decline in vision from the cataract impedes his abilities as listed in the HPI, as well as other activities of daily living. Denny Gomez has confirmed that he is no longer able to function adequately on a day-to-day basis because of his current visual condition. Further, it is my medical opinion that the cataract is the primary cause, or at least a significantly contributory cause of his visual dysfunction. With uncomplicated cataract surgery and lens implantation, it is my expectation that his visual function and quality of life will improve, significantly. The risks, benefits, alternatives, personnel and complications of cataract surgery with lens implantation were discussed with Denny Gomez in detail. he appeared to understand and asked that I proceed with plans for surgery. PHYSICAL EXAM: Vital Signs: Blood pressure 122/70, pulse 61. Respiratory: Normal breath sounds, no wheezing. CARD: Normal heart sounds 1 & 2, normal sinus rhythm. 3. Primary open angle glaucoma (POAG) of right eye, moderate stage - ICD9: 365.11, 365.72, ICD10: H40.1112 4. Status post glaucoma surgery - ICD9: V45.69, ICD10: Z98.83 - S/P Canaloplasty using the OMNI Surgical System and Micro-stent- Right eye done 09/26/22 5. Status post cataract extraction and insertion of intraocular lens of right eye - ICD9: V45.61, V43.1, ICD10: Z98.41, Z96.1 - Continue Current Ophthalmic Meds keTORolac (ACULAR) 0.5 Use 1 Drop in the right eye three times daily for 3 days. prednisoLONE acetate (PRED FORTE) 1 % ophthalmic suspension Use 1 Drop in the right eye three times daily for 3 days. 6. Optic cupping of both eyes - ICD9: 377.14, ICD10: H47.233 - Stable / Monitor 7. Homonymous hemianopsia, right - ICD9: 368.46, ICD10: H53.461 - Stable / Monitor 8. Essential hypertension - ICD9: 401.9, ICD10: I10 9. Hypercholesteremia - ICD9: 272.0, ICD10: E78.00 - Continue to monitor with PCP I have confirmed and edited as necessary the relevant ophthalmic history, review of systems, surgical history, and ophthalmological examination findings as obtained by the ophthalmic technical staff. I have seen and examined Denny Gomez. I have discussed the examination findings, diagnosis, and treatment options with Denny Gomez and/or his family. I have also reviewed and agree with the assessment and plan as stated above and agree with all its relevant components. I gave the patient the opportunity to ask questions about the findings, diagnosis, and treatment options. Massiel Harrell MD documented in this encounter [facility] 10-25-2022 Miscellaneous Notes Pharmacy verified in [facility] Patient has been identified by name and date of : Yes Patient aware RX will be sent to pharmacy. No need to notify patient. Patient phones for refill(s): Requested Prescriptions Pending Prescriptions Disp Refills rosuvastatin (CRESTOR) 40 mg tablet 90 tablet 3 Sig: Take 1 tablet by mouth once daily. Date of last office visit : 08/23/2022 Date of next office visit : 12/16/2022 Last 2 Encounter Wt Readings: Date: Wt: 08/23/2022 73 kg (161 lb) 06/18/2022 69.9 kg (154 lb) Please advise. Isidra Erazo Pss documented in this encounter [facility] 09-30-2022 Note HNO ID: [id number] Author: Massiel Harrell MD Service: ? Author Type: Physician Type: Progress Notes Filed: 10/01/2022 10:12 AM Note Text: ASSESSMENT/PLAN: 1. Status post glaucoma surgery - ICD9: V45.69, ICD10: Z98.83 (primary diagnosis) - S/P Canaloplasty with the Omni surgical system, and Hydrus micro-stent - Right eye done on 09/26/22 2. Status post cataract extraction and insertion of intraocular lens of right eye - ICD9: V45.61, V43.1, ICD10: Z98.41, Z96.1 - Use medication as directed Current Ophthalmic Meds prednisoLONE acetate (PRED FORTE, ECONOPRED PLUS) 1 % ophthalmic suspension Use 1 Drop in the right eye four times daily. keTORolac (ACULAR) 0.5 % ophthalmic solution Use 1 Drop in the right eye four times daily. Systane Complete Artificial Tears - Use 1 Drop into both eyes three times a day. Discontinue Atropine 3. Primary open angle glaucoma (POAG) of right eye, moderate stage - ICD9: 365.11, 365.72, ICD10: H40.1112 The nature of glaucoma was discussed, with emphasis on the non-reversible damage to the optic nerve. Treatment options and the importance of regular examinations and testing were covered in detail, as well as the consequences of non-compliance. The patient was given the opportunity to ask questions. Current Ophthalmic Meds dorzolamide-timolol (COSOPT) 22.3-6.8 mg/mL ophthalmic solution Use 1 Drop in the left eye twice daily. latanoprost (XALATAN) 0.005 % ophthalmic solution Use 1 Drop in the left eye daily at bedtime. 4. Primary open angle glaucoma (POAG) of left eye, moderate stage - ICD9: 365.11, 365.72, ICD10: H40.1122 Canaloplasty with the Omni surgical system, and Hydrus micro-stent left eye 11/07/2022 5. Combined forms of age-related cataract of left eye - ICD9: 366.19, ICD10: H25.812 Scheduled for surgery 11/07/2022 left eye Massiel Harrell MD I have confirmed and edited as necessary the relevant ophthalmic history, review of systems, surgical history, and ophthalmological examination findings as obtained by the ophthalmic technical staff. I have seen and examined Denny Gomez. I have discussed the examination findings, diagnosis, and treatment options with Denny Gomez and/or his family. I have also reviewed and agree with the assessment and plan as stated above and agree with all its relevant components. I gave the patient the opportunity to ask questions about the findings, diagnosis, and treatment options. [facility] 09-30-2022 Instructions Massiel Harrell MD - 09/30/2022 11:00 AM EST - Use medication as directed Current Ophthalmic Meds prednisoLONE acetate (PRED FORTE, ECONOPRED PLUS) 1 % ophthalmic suspension Use 1 Drop in the right eye four times daily. keTORolac (ACULAR) 0.5 % ophthalmic solution Use 1 Drop in the right eye four times daily. Systane Complete Artificial Tears - Use 1 Drop into both eyes three times a day. Current Ophthalmic Meds dorzolamide-timolol (COSOPT) 22.3-6.8 mg/mL ophthalmic solution Use 1 Drop in the left eye twice daily- Blue lid latanoprost (XALATAN) 0.005 % ophthalmic solution Use 1 Drop in the left eye daily at bedtime- Teal lid Discontinue Atropine- red lid If you have any questions please contact our office at [phone]. After office hours or on the weekend, please call Dr. Harrell on his cell phone at [phone]. documented in this encounter [facility] 09-30-2022 History of Present illness Narrative ASSESSMENT/PLAN: 1. Status post glaucoma surgery - ICD9: V45.69, ICD10: Z98.83 (primary diagnosis) - S/P Canaloplasty with the Omni surgical system, and Hydrus micro-stent - Right eye done on 09/26/22 2. Status post cataract extraction and insertion of intraocular lens of right eye - ICD9: V45.61, V43.1, ICD10: Z98.41, Z96.1 - Use medication as directed Current Ophthalmic Meds prednisoLONE acetate (PRED FORTE, ECONOPRED PLUS) 1 % ophthalmic suspension Use 1 Drop in the right eye four times daily. keTORolac (ACULAR) 0.5 % ophthalmic solution Use 1 Drop in the right eye four times daily. Systane Complete Artificial Tears - Use 1 Drop into both eyes three times a day. Discontinue Atropine 3. Primary open angle glaucoma (POAG) of right eye, moderate stage - ICD9: 365.11, 365.72, ICD10: H40.1112 The nature of glaucoma was discussed, with emphasis on the non-reversible damage to the optic nerve. Treatment options and the importance of regular examinations and testing were covered in detail, as well as the consequences of non-compliance. The patient was given the opportunity to ask questions. Current Ophthalmic Meds dorzolamide-timolol (COSOPT) 22.3-6.8 mg/mL ophthalmic solution Use 1 Drop in the left eye twice daily. latanoprost (XALATAN) 0.005 % ophthalmic solution Use 1 Drop in the left eye daily at bedtime. 4. Primary open angle glaucoma (POAG) of left eye, moderate stage - ICD9: 365.11, 365.72, ICD10: H40.1122 Canaloplasty with the Omni surgical system, and Hydrus micro-stent left eye 11/07/2022 5. Combined forms of age-related cataract of left eye - ICD9: 366.19, ICD10: H25.812 Scheduled for surgery 11/07/2022 left eye Massiel Harrell MD I have confirmed and edited as necessary the relevant ophthalmic history, review of systems, surgical history, and ophthalmological examination findings as obtained by the ophthalmic technical staff. I have seen and examined Denny Gomez. I have discussed the examination findings, diagnosis, and treatment options with Denny Gomez and/or his family. I have also reviewed and agree with the assessment and plan as stated above and agree with all its relevant components. I gave the patient the opportunity to ask questions about the findings, diagnosis, and treatment options. documented in this encounter [facility] 09-27-2022 Note HNO ID: [id number] Author: Massiel Harrell MD Service: ? Author Type: Physician Type: Progress Notes Filed: 09/27/2022 1:56 PM Note Text: ASSESSMENT/PLAN: 1. Status post glaucoma surgery - ICD9: V45.69, ICD10: Z98.83 (primary diagnosis) - S/P Canaloplasty with the Omni surgical system, and Hydrus micro-stent - Right eye done on 09/26/22 2. Status post cataract extraction and insertion of intraocular lens of right eye - ICD9: V45.61, V43.1, ICD10: Z98.41, Z96.1 - Use medication as directed Current Ophthalmic Meds prednisoLONE acetate (PRED FORTE, ECONOPRED PLUS) 1 % ophthalmic suspension Use 1 Drop in the right eye four times daily. keTORolac (ACULAR) 0.5 % ophthalmic solution Use 1 Drop in the right eye four times daily. Systane Complete Artificial Tears - Use 1 Drop into both eyes three times a day. Current Ophthalmic Meds atropine 1 % ophthalmic solution Use 1 Drop in the right eye four times daily. 3. Primary open angle glaucoma (POAG) of right eye, moderate stage - ICD9: 365.11, 365.72, ICD10: H40.1112 The nature of glaucoma was discussed, with emphasis on the non-reversible damage to the optic nerve. Treatment options and the importance of regular examinations and testing were covered in detail, as well as the consequences of non-compliance. The patient was given the opportunity to ask questions. Current Ophthalmic Meds dorzolamide-timolol (COSOPT) 22.3-6.8 mg/mL ophthalmic solution Use 1 Drop in the left eye twice daily. latanoprost (XALATAN) 0.005 % ophthalmic solution Use 1 Drop in the left eye daily at bedtime. 4. Primary open angle glaucoma (POAG) of left eye, moderate stage - ICD9: 365.11, 365.72, ICD10: H40.1122 - Plan Canaloplasty with the Omni surgical system, and Hydrus micro-stent left eye when right eye is stable 5. Combined forms of age-related cataract of left eye - ICD9: 366.19, ICD10: H25.812 - Plan cataract surgery left eye when right eye is stable I have confirmed and edited as necessary the relevant ophthalmic history, review of systems, surgical history, and ophthalmological examination findings as obtained by the ophthalmic technical staff. I have seen and examined Denny Gomez. I have discussed the examination findings, diagnosis, and treatment options with Denny Gomez and/or his family. I have also reviewed and agree with the assessment and plan as stated above and agree with all its relevant components. I gave the patient the opportunity to ask questions about the findings, diagnosis, and treatment options. Massiel Harrell MD [facility] 09-26-2022 Note Post Operative Note: Post-Procedure Diagnosis: 1. Combined Form Age Related Cataract Right Eye 2. Primary Open Angle Glaucoma Right Eye, Moderate Stage Procedure: 1. Cataract Extraction with Intraocular Lens Implant Right Eye with Hydrus Microstent Implant 2. Canaloplasty Right Eye using OMNI surgical system Surgeon: Massiel Harrell MD Resident/Fellow/Other Supervisor Paste Plant: None Estimated Blood Loss (mL): none Specimen: no Findings: 1. Combined Form Age Related Cataract Right Eye 2. Primary Open Angle Glaucoma Right Eye, Moderate Stage Operative Report Dictated: Dictation: not applicable - note contains Operative Report Operative Report: The patient was correctly identified in the pre-op area and the operative eye was marked. The operative eye was dilated in the pre-op area. The patient was taken to the operating room and time out was performed before starting the procedure. Combined anesthesia and IV sedation and topical Tetracaine eye drops were given. A peribulbar block was given using 1% Lidocaine with Epinephrine. The operative eye was prepped and draped in the standard sterile ophthalmic fashion in preparation for ophthalmic surgery. A Deuce wire speculum was then placed between the eyelids and the operative microscope was placed over the operative eye. A paracentesis incision was made approximately 30 degrees away from the planned surgical incision site with the help of the MVR blade. 1% Lidocaine MPF with Phenylephrine 1.5% PF was injected into the anterior chamber through the paracentesis incision. A near limbal clear corneal incision was fashioned in the temporal quadrant just outside the vascular arcade. Viscoat was injected in the anterior chamber to firm the eye. A bent needle cystotome and Utrata forceps were used to create a continuous curvilinear capsulorhexis. Balanced salt solution was injected beneath the anterior capsule to hydrodissect the nucleus free from adjacent cortex and capsule. The nucleus of the cataractous lens was removed with phacoemulsification instrument. The residual cortex was aspirated with the irrigation/aspiration hand piece. The posterior capsule was then polished with the help of soft irrigation/aspiration tip. Provisc viscoelastic was then injected into the eye to reform the anterior chamber and to open the capsular bag. Intraocular lens implant was taken from the sterile wrapping, inspected under the surgical microscope and found to be in good condition. The intraocular lens implant with the power of 23.5D was injected into the capsular bag. The viscoelastic material was aspirated from the anterior chamber and from behind the lens optics. The anterior chamber was inflated with the help of BSS to moderate tension and the edges of the surgical incision were hydrated with BSS. Miochol was instilled into the anterior chamber. A second clear corneal incision was made with the help of a 1.5mm blade for the Hydrus Implant. The anterior chamber was inflated with Discovisc and the patients head was rotated to the left side and the microscope was rotated to the right. Using the gonio-prism the nasal trabecular meshwork was brought into clear view. The Hydrus micro-stent was placed nasally into the trabecular meshwork. A 180 degree canaloplasty was done in the upper nasal quadrant with the OMNI surgical system. There was bleeding into the anterior chamber which was irrigated out with the help of the I and A handpiece. The anterior chamber was formed with BSS. Vigamox was injected into the anterior chamber and into the capsular bag through the paracentesis incision. The surgical incision was inspected and found to be water tight. The wire speculum and the drapes were removed. Pred Forte eye drops, Acular eye drops and Betadine 5% sterile ophthalmic solution were instilled into the conjunctival sac. Tobrex ointment was applied into the operative eye. The eye was patched and a shield was applied. The patient tolerated the procedure well and was taken to the recovery room in stable condition. Attestation: Note Completion: Attending AttestationI performed the procedure without a resident Electronic Signatures: Massiel Harrell) (Signed 26-Sep-2022 11:00) Authored: Post Operative Note, Note Completion Last Updated: 26-Sep-2022 11:00 by Massiel Harrell) [facility] 09-26-2022 Note History & Physical R eviewed: I have reviewed the History and Physical dated: 30-Aug-2022 History and Physical reviewed and relevant findings noted. Patient examined to review pertinent physical findings.: No significant changes Home Medications Reviewed: no changes noted Allergies Reviewed: no changes noted ERAS (Enhanced Recovery After Surgery): ERAS Patient: no Consent: COVID-19 Consent: COVID-19 Risk ConsentSurgeon has reviewed mcclrue risks related to the risk of sloane COVID-19 and if they contract COVID-19 what the risks are. Electronic Signatures: Massiel Harrell) (Signed 26-Sep-2022 08:32) Authored: History & Physical Reviewed, ERAS, Consent, Note Completion Last Updated: 26-Sep-2022 08:32 by Massiel Harrell) [facility] documented as of this encounter (statuses as of 10/01/2022) [facility]-27[facility] History of Past illness Narrative* Problem Noted Date Resolved Date Combined forms of age-related cataract of right eye 08/30/2022 09/27/2022 Abnormal hemoglobin (Hgb) 04/07/20202020 Overview: Hx: POD2 labs with drop in hemoglobin to 8.4 from baseline 10.6; transfused 1u PRBC POD2 A: asymptomatic, no associated tachycardia or hypotension P: f/u AM CBC On mechanically assisted ventilation 04/04/2020 04/05/2020 Overview: History: post op Assessment: intubated and sedated Plan: WTE Stress hyperglycemia 04/04/2020 04/06/2020 Overview: History: post op Assessment: Perioperative insulin resistance and exacerbation of hyperglycemia Plan: SSI Post-op pain 04/04/2020 04/08/2020 Overview: History: post op Assessment: well controlled Plan: PRN oxycodone Narcotic minimization Multimodal therapy Subdural hematoma 01/29/2019 06/21/2020 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 Lukasz Beasley documented as of this encounter (statuses as of 10/28/2022) [facility] History of Past illness Narrative* Problem Noted Date Resolved Date Combined forms of age-related cataract of right eye 08/30/2022 09/27/2022 Abnormal hemoglobin (Hgb) 04/07/20202020 Overview: Hx: POD2 labs with drop in hemoglobin to 8.4 from baseline 10.6; transfused 1u PRBC POD2 A: asymptomatic, no associated tachycardia or hypotension P: f/u AM CBC On mechanically assisted ventilation 04/04/2020 04/05/2020 Overview: History: post op Assessment: intubated and sedated Plan: WTE Stress hyperglycemia 04/04/2020 04/06/2020 Overview: History: post op Assessment: Perioperative insulin resistance and exacerbation of hyperglycemia Plan: SSI Post-op pain 04/04/2020 04/08/2020 Overview: History: post op Assessment: well controlled Plan: PRN oxycodone Narcotic minimization Multimodal therapy Subdural hematoma 01/29/2019 06/21/2020 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 Lukasz Beasley documented as of this encounter (statuses as of 10/28/2022) [facility] History of Past illness Narrative* Problem Noted Date Resolved Date Combined forms of age-related cataract of right eye 08/30/2022 09/27/2022 Abnormal hemoglobin (Hgb) 04/07/20202020 Overview: Hx: POD2 labs with drop in hemoglobin to 8.4 from baseline 10.6; transfused 1u PRBC POD2 A: asymptomatic, no associated tachycardia or hypotension P: f/u AM CBC On mechanically assisted ventilation 04/04/2020 04/05/2020 Overview: History: post op Assessment: intubated and sedated Plan: WTE Stress hyperglycemia 04/04/2020 04/06/2020 Overview: History: post op Assessment: Perioperative insulin resistance and exacerbation of hyperglycemia Plan: SSI Post-op pain 04/04/2020 04/08/2020 Overview: History: post op Assessment: well controlled Plan: PRN oxycodone Narcotic minimization Multimodal therapy Subdural hematoma 01/29/2019 06/21/2020 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 Lukasz Beasley documented as of this encounter (statuses as of 11/08/2022) [facility] History of Past illness Narrative* Problem Noted Date Resolved Date Combined forms of age-related cataract of right eye 08/30/2022 09/27/2022 Abnormal hemoglobin (Hgb) 04/07/20202020 Overview: Hx: POD2 labs with drop in hemoglobin to 8.4 from baseline 10.6; transfused 1u PRBC POD2 A: asymptomatic, no associated tachycardia or hypotension P: f/u AM CBC On mechanically assisted ventilation 04/04/2020 04/05/2020 Overview: History: post op Assessment: intubated and sedated Plan: WTE Stress hyperglycemia 04/04/2020 04/06/2020 Overview: History: post op Assessment: Perioperative insulin resistance and exacerbation of hyperglycemia Plan: SSI Post-op pain 04/04/2020 04/08/2020 Overview: History: post op Assessment: well controlled Plan: PRN oxycodone Narcotic minimization Multimodal therapy Subdural hematoma 01/29/2019 06/21/2020 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 Lukasz Beasley documented as of this encounter (statuses as of 11/11/2022) [facility] History of Past illness Narrative* Problem Noted Date Resolved Date Combined forms of age-related cataract of right eye 08/30/2022 09/27/2022 Abnormal hemoglobin (Hgb) 04/07/20202020 Overview: Hx: POD2 labs with drop in hemoglobin to 8.4 from baseline 10.6; transfused 1u PRBC POD2 A: asymptomatic, no associated tachycardia or hypotension P: f/u AM CBC On mechanically assisted ventilation 04/04/2020 04/05/2020 Overview: History: post op Assessment: intubated and sedated Plan: WTE Stress hyperglycemia 04/04/2020 04/06/2020 Overview: History: post op Assessment: Perioperative insulin resistance and exacerbation of hyperglycemia Plan: SSI Post-op pain 04/04/2020 04/08/2020 Overview: History: post op Assessment: well controlled Plan: PRN oxycodone Narcotic minimization Multimodal therapy Subdural hematoma 01/29/2019 06/21/2020 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 Lukasz Beasley documented as of this encounter (statuses as of 11/18/2022) [facility] History of Past illness Narrative* Problem Noted Date Resolved Date Combined forms of age-related cataract of right eye 08/30/2022 09/27/2022 Abnormal hemoglobin (Hgb) 04/07/20202020 Overview: Hx: POD2 labs with drop in hemoglobin to 8.4 from baseline 10.6; transfused 1u PRBC POD2 A: asymptomatic, no associated tachycardia or hypotension P: f/u AM CBC On mechanically assisted ventilation 04/04/2020 04/05/2020 Overview: History: post op Assessment: intubated and sedated Plan: WTE Stress hyperglycemia 04/04/2020 04/06/2020 Overview: History: post op Assessment: Perioperative insulin resistance and exacerbation of hyperglycemia Plan: SSI Post-op pain 04/04/2020 04/08/2020 Overview: History: post op Assessment: well controlled Plan: PRN oxycodone Narcotic minimization Multimodal therapy Subdural hematoma 01/29/2019 06/21/2020 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 Lukasz Beasley documented as of this encounter (statuses as of 12/04/2022) [facility] History of Past illness Narrative* Problem Noted Date Resolved Date Combined forms of age-related cataract of right eye 08/30/2022 09/27/2022 Abnormal hemoglobin (Hgb) 04/07/20202020 Overview: Hx: POD2 labs with drop in hemoglobin to 8.4 from baseline 10.6; transfused 1u PRBC POD2 A: asymptomatic, no associated tachycardia or hypotension P: f/u AM CBC On mechanically assisted ventilation 04/04/2020 04/05/2020 Overview: History: post op Assessment: intubated and sedated Plan: WTE Stress hyperglycemia 04/04/2020 04/06/2020 Overview: History: post op Assessment: Perioperative insulin resistance and exacerbation of hyperglycemia Plan: SSI Post-op pain 04/04/2020 04/08/2020 Overview: History: post op Assessment: well controlled Plan: PRN oxycodone Narcotic minimization Multimodal therapy Subdural hematoma 01/29/2019 06/21/2020 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 Lukasz Beasley documented as of this encounter (statuses as of 01/21/2023) [facility] History of Past illness Narrative* Problem Noted Date Resolved Date Combined forms of age-related cataract of right eye 08/30/2022 09/27/2022 Abnormal hemoglobin (Hgb) 04/07/20202020 Overview: Hx: POD2 labs with drop in hemoglobin to 8.4 from baseline 10.6; transfused 1u PRBC POD2 A: asymptomatic, no associated tachycardia or hypotension P: f/u AM CBC On mechanically assisted ventilation 04/04/2020 04/05/2020 Overview: History: post op Assessment: intubated and sedated Plan: WTE Stress hyperglycemia 04/04/2020 04/06/2020 Overview: History: post op Assessment: Perioperative insulin resistance and exacerbation of hyperglycemia Plan: SSI Post-op pain 04/04/2020 04/08/2020 Overview: History: post op Assessment: well controlled Plan: PRN oxycodone Narcotic minimization Multimodal therapy Subdural hematoma 01/29/2019 06/21/2020 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 Lukasz Beasley documented as of this encounter (statuses as of 01/21/2023) [facility] History of Past illness Narrative* Problem Noted Date Resolved Date Combined forms of age-related cataract of right eye 08/30/2022 09/27/2022 Abnormal hemoglobin (Hgb) 04/07/20202020 Overview: Hx: POD2 labs with drop in hemoglobin to 8.4 from baseline 10.6; transfused 1u PRBC POD2 A: asymptomatic, no associated tachycardia or hypotension P: f/u AM CBC On mechanically assisted ventilation 04/04/2020 04/05/2020 Overview: History: post op Assessment: intubated and sedated Plan: WTE Stress hyperglycemia 04/04/2020 04/06/2020 Overview: History: post op Assessment: Perioperative insulin resistance and exacerbation of hyperglycemia Plan: SSI Post-op pain 04/04/2020 04/08/2020 Overview: History: post op Assessment: well controlled Plan: PRN oxycodone Narcotic minimization Multimodal therapy Subdural hematoma 01/29/2019 06/21/2020 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 Lukasz Beasley documented as of this encounter (statuses as of 01/22/2023) [facility] History of Past illness Narrative* Problem Noted Date Diagnosed Date Resolved Date Combined forms of age-relate d cataract of right eye 08/30/2022 09/27/2022 Abnormal hemoglobin (Hgb) 04/07/2020 Overview: Hx: POD2 labs with drop in hemoglobin to 8.4 from baseline 10.6; transfused 1u PRBC POD2 A: asymptomatic, no associated tachycardia or hypotension P: f/u AM CBC On mechanically assisted ventilation 04/04/2020 04/05/2020 Overview: History: post op Assessment: intubated and sedated Plan: WTE Stress hyperglycemia 04/04/2020 020 Overview: History: post op Assessment: Perioperative insulin resistance and exacerbation of hyperglycemia Plan: SSI Post-op pain 04/04/2020 04/08/2020 Overview: History: post op Assessment: well controlled Plan: PRN oxycodone Narcotic minimization Multimodal therapy Subdural hematoma 01/29/2019 06/21/2020 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 Lukasz Beasley documented as of this encounter (statuses as of 03/26/2023) [facility] History of Past illness Narrative* Problem Noted Date Diagnosed Date Resolved Date Combined forms of age-relate d cataract of right eye 08/30/2022 09/27/2022 Abnormal hemoglobin (Hgb) 04/07/2020 Overview: Hx: POD2 labs with drop in hemoglobin to 8.4 from baseline 10.6; transfused 1u PRBC POD2 A: asymptomatic, no associated tachycardia or hypotension P: f/u AM CBC On mechanically assisted ventilation 04/04/2020 04/05/2020 Overview: History: post op Assessment: intubated and sedated Plan: WTE Stress hyperglycemia 04/04/2020 020 Overview: History: post op Assessment: Perioperative insulin resistance and exacerbation of hyperglycemia Plan: SSI Post-op pain 04/04/2020 04/08/2020 Overview: History: post op Assessment: well controlled Plan: PRN oxycodone Narcotic minimization Multimodal therapy Subdural hematoma 01/29/2019 06/21/2020 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 Lukasz Beasley documented as of this encounter (statuses as of 04/01/2023) [facility] History of Past illness Narrative* Problem Noted Date Diagnosed Date Resolved Date Combined forms of age-relate d cataract of right eye 08/30/2022 09/27/2022 Abnormal hemoglobin (Hgb) 04/07/2020 Overview: Hx: POD2 labs with drop in hemoglobin to 8.4 from baseline 10.6; transfused 1u PRBC POD2 A: asymptomatic, no associated tachycardia or hypotension P: f/u AM CBC On mechanically assisted ventilation 04/04/2020 04/05/2020 Overview: History: post op Assessment: intubated and sedated Plan: WTE Stress hyperglycemia 04/04/2020 020 Overview: History: post op Assessment: Perioperative insulin resistance and exacerbation of hyperglycemia Plan: SSI Post-op pain 04/04/2020 04/08/2020 Overview: History: post op Assessment: well controlled Plan: PRN oxycodone Narcotic minimization Multimodal therapy Subdural hematoma 01/29/2019 06/21/2020 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 Lukasz Beasley documented as of this encounter (statuses as of 04/17/2023) [facility] History of Past illness Narrative* Problem Noted Date Diagnosed Date Resolved Date Combined forms of age-relate d cataract of right eye 08/30/2022 09/27/2022 Abnormal hemoglobin (Hgb) 04/07/2020 Overview: Hx: POD2 labs with drop in hemoglobin to 8.4 from baseline 10.6; transfused 1u PRBC POD2 A: asymptomatic, no associated tachycardia or hypotension P: f/u AM CBC On mechanically assisted ventilation 04/04/2020 04/05/2020 Overview: History: post op Assessment: intubated and sedated Plan: WTE Stress hyperglycemia 04/04/2020 020 Overview: History: post op Assessment: Perioperative insulin resistance and exacerbation of hyperglycemia Plan: SSI Post-op pain 04/04/2020 04/08/2020 Overview: History: post op Assessment: well controlled Plan: PRN oxycodone Narcotic minimization Multimodal therapy Subdural hematoma 01/29/2019 06/21/2020 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 Lukasz Beasley documented as of this encounter (statuses as of 04/25/2023) [facility] History of Past illness Narrative* Problem Noted Date Diagnosed Date Resolved Date Combined forms of age-relate d cataract of right eye 08/30/2022 09/27/2022 Abnormal hemoglobin (Hgb) 04/07/2020 Overview: Hx: POD2 labs with drop in hemoglobin to 8.4 from baseline 10.6; transfused 1u PRBC POD2 A: asymptomatic, no associated tachycardia or hypotension P: f/u AM CBC On mechanically assisted ventilation 04/04/2020 04/05/2020 Overview: History: post op Assessment: intubated and sedated Plan: WTE Stress hyperglycemia 04/04/2020 020 Overview: History: post op Assessment: Perioperative insulin resistance and exacerbation of hyperglycemia Plan: SSI Post-op pain 04/04/2020 04/08/2020 Overview: History: post op Assessment: well controlled Plan: PRN oxycodone Narcotic minimization Multimodal therapy Subdural hematoma 01/29/2019 06/21/2020 Combined forms of age-relate d cataract of left eye 01/29/2019 04/29/2023 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 Lukasz Beasley documented as of this encounter (statuses as of 04/29/2023) [facility] History of Past illness Narrative* Problem Noted Date Diagnosed Date Resolved Date Combined forms of age-relate d cataract of right eye 08/30/2022 09/27/2022 Abnormal hemoglobin (Hgb) 04/07/2020 Overview: Hx: POD2 labs with drop in hemoglobin to 8.4 from baseline 10.6; transfused 1u PRBC POD2 A: asymptomatic, no associated tachycardia or hypotension P: f/u AM CBC On mechanically assisted ventilation 04/04/2020 04/05/2020 Overview: History: post op Assessment: intubated and sedated Plan: WTE Stress hyperglycemia 04/04/2020 020 Overview: History: post op Assessment: Perioperative insulin resistance and exacerbation of hyperglycemia Plan: SSI Post-op pain 04/04/2020 04/08/2020 Overview: History: post op Assessment: well controlled Plan: PRN oxycodone Narcotic minimization Multimodal therapy Subdural hematoma 01/29/2019 06/21/2020 Combined forms of age-relate d cataract of left eye 01/29/2019 04/29/2023 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 Lukasz Beasley documented as of this encounter (statuses as of 05/13/2023) [facility] History of Past illness Narrative* Problem Noted Date Diagnosed Date Resolved Date Combined forms of age-relate d cataract of right eye 08/30/2022 09/27/2022 Abnormal hemoglobin (Hgb) 04/07/2020 Overview: Hx: POD2 labs with drop in hemoglobin to 8.4 from baseline 10.6; transfused 1u PRBC POD2 A: asymptomatic, no associated tachycardia or hypotension P: f/u AM CBC On mechanically assisted ventilation 04/04/2020 04/05/2020 Overview: History: post op Assessment: intubated and sedated Plan: WTE Stress hyperglycemia 04/04/2020 020 Overview: History: post op Assessment: Perioperative insulin resistance and exacerbation of hyperglycemia Plan: SSI Post-op pain 04/04/2020 04/08/2020 Overview: History: post op Assessment: well controlled Plan: PRN oxycodone Narcotic minimization Multimodal therapy Subdural hematoma 01/29/2019 06/21/2020 Combined forms of age-relate d cataract of left eye 01/29/2019 04/29/2023 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 Lukasz Beasley documented as of this encounter (statuses as of 06/08/2023) [facility] History of Past illness Narrative* Problem Noted Date Diagnosed Date Resolved Date Combined forms of age-relate d cataract of right eye 08/30/2022 09/27/2022 Abnormal hemoglobin (Hgb) 04/07/2020 Overview: Hx: POD2 labs with drop in hemoglobin to 8.4 from baseline 10.6; transfused 1u PRBC POD2 A: asymptomatic, no associated tachycardia or hypotension P: f/u AM CBC On mechanically assisted ventilation 04/04/2020 04/05/2020 Overview: History: post op Assessment: intubated and sedated Plan: WTE Stress hyperglycemia 04/04/2020 09 020 Overview: History: post op Assessment: Perioperative insulin resistance and exacerbation of hyperglycemia Plan: SSI Post-op pain 04/04/2020 04/08/2020 Overview: History: post op Assessment: well controlled Plan: PRN oxycodone Narcotic minimization Multimodal therapy Subdural hematoma 01/29/2019 06/21/2020 Combined forms of age-relate d cataract of left eye 01/29/2019 04/29/2023 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 Lukasz Beasley documented as of this encounter (statuses as of 06/18/2023) [facility]23 NoteHNO ID: [id number] Author: Massiel Harrell MD Service: ? Author Type: Physician Type: Progress Notes Filed: 08/30/2022 10:20 AM Note Text: ASSESSMENT/PLAN: 1. Primary open angle glaucoma (POAG) of right eye, moderate stage - ICD9: 365.11, 365.72, ICD10: H40.1112 (primary diagnosis) The nature of glaucoma was discussed, with emphasis on the non-reversible damage to the optic nerve. Treatment options and the importance of regular examinations and testing were covered in detail, as well as the consequences of non-compliance. The patient was given the opportunity to ask questions. Continue: Current Ophthalmic Meds latanoprost (XALATAN) 0.005 % ophthalmic solution Use 1 Drop in both eyes daily at bedtime. dorzolamide-timolol (COSOPT) 22.3-6.8 mg/mL ophthalmic solution Use 1 Drop in both eyes twice daily. Systane Complete solution instill 1 drop 3 times daily Both Eyes. Target Intraocular pressure: 12 mmHg Due to the following reason/s: Intraocular pressure not at desired target pressure An inability to comply with medication requirements due to physical or cognitive function Patient reported that the side effects of the medication/s are negatively impacting the patient's quality of life Patient does not desire an additional medication to be added to their existing regimen Patient is having difficulty with their co-payment obligations Patient's intraocular pressure uncontrolled on maximum tolerated therapy Both Eyes. Plan Cataract Surgery with Monofocal Intraocular lens Implant, Canaloplasty with the Omni surgical system, and Hydrus micro-stent - Right eye on 09/24/2022 at [facility]. PHYSICAL EXAM: Vital Signs: Blood pressure 122/70, pulse 61. Respiratory: Normal breath sounds, no wheezing. CARD: Normal heart sounds 1 AND 2, normal sinus rhythm. Patient to bring the following medications to surgery, unopened: Current Ophthalmic Meds keTORolac (ACULAR) 0.5 % ophthalmic solution Starting on 09/24/2022. Use 1 Drop in the right eye four times daily. Bring to surgery, unopened prednisoLONE acetate (PRED FORTE, ECONOPRED PLUS) 1 % ophthalmic suspension Starting on 09/24/2022. Use 1 Drop in the right eye four times daily. Bring to surgery, unopened 2. Combined forms of age-related cataract of right eye - ICD9: 366.19, ICD10: H25.811 Cataract Presurgical Documentation Cataract: Right eye (OD) Current Visual Acuity Right Eye Distance SC 20/50 Left Eye Distance SC 20/40 Glare Testing: Right Eye High 20/100 Left Eye High 20/100 Visual Function: Denny Gomez states that the decline in vision from the cataract impedes his abilities as listed in the HPI, as well as other activities of daily living. Denny Gomez has confirmed that he is no longer able to function adequately on a day-to-day basis because of his current visual condition. Further, it is my medical opinion that the cataract is the primary cause, or at least a significantly contributory cause of his visual dysfunction. With uncomplicated cataract surgery and lens implantation, it is my expectation that his visual function and quality of life will improve, significantly. The risks, benefits, alternatives, personnel and complications of cataract surgery with lens implantation were discussed with Denny Gomez in detail. he appeared to understand and asked that I proceed with plans for surgery. PHYSICAL EXAM: Vital Signs: Blood pressure 122/70, pulse 61. Respiratory: Normal breath sounds, no wheezing. CARD: Normal heart sounds 1 AND 2, normal sinus rhythm. Patient wishes to have traditional cataract surgery with basic Intraocular lens in-conjunction with Canaloplasty using the OMNI Surgical System and Micro-stent- Right eye on 09/24/2022 at [facility]. Patient wishes to have cataract surgery with the option stated above. Patient understands that an intraocular lens implant does not necessarily replace the need for glasses. Patient understands that it is impossible for the surgeon to inform him/her of every possible complication that may occur. The surgeon has answered all of the patient's questions. Patient understands that if he/she has a mature or dense cataract, pseudoexfoliation cataract, or history of use of Flomax, he/she may require the use of Maluyugin Ring and/or Vision Blue during surgery. Patient understands the risks, benefits, and alternatives to surgery. Continue Systane Complete Artificial Tears - Use 1 Drop into both eyes three times a day. Patient to bring the following medications to surgery, unopened: Current Ophthalmic Meds keTORolac (ACULAR) 0.5 % ophthalmic solution Starting on 09/24/2022. Use 1 Drop in the right eye four times daily. Bring to surgery, unopened prednisoLONE acetate (PRED FORTE, ECONOPRED PLUS) 1 % ophthalmic suspension Starting on 09/24/2022. Use 1 Drop in the (more content not included)...[facility]01-20-2023 NoteHNO ID: [id number] Author: Kesha Boone APRN.WAX MACHINE OPERATOR Service: ? Author Type: Nurse Specialist Type: Progress Notes Filed: 08/23/2022 8:56 AM Note Text: SUBJECTIVE: SHINGRIX VACCINE(1 of 2) Never done ADVANCE DIRECTIVE DISCUSSION due on 08/04/2022 COLORECTAL CANCER SCREENING due on 10/16/2022 HPI Denny Gomez is a 67 year old male. 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 ACTIVE PROBLEM LIST Anxiety and Depression Mixed Hyperlipidemia Essential Hypertension Paget's Bone Disease Elevated Psa, Less Than 10 Ng/Ml History of Cerebral Hemorrhage Vision Loss, Bilateral Homonymous Hemianopsia, Right Ocular Hypertension, Bilateral Optic Cupping of Both Eyes Combined Forms of Age-Related Cataract of Both Eyes Bilateral Carotid Artery Stenosis Pad (Peripheral Artery Disease) ([facility]) S/P Carotid Endarterectomy H/O Ischemic Left Mca Stroke Intracranial Atherosclerosis Atherosclerosis of [place] Artery of Extremity With Intermittent Claudication ([facility]) Iliac Artery Injury, Left, Initial Encounter Facial Swelling Vitamin D Deficiency Recurrent Depressive Disorder, in Remission ([facility]) Presents today for preoperative visit in internal medicine. Recently seen by Massiel Harrell MD, noted that intraocular pressures uncontrolled on maximum tolerated therapy for both eyes. Plan Cataract Surgery with Monofocal Intraocular lens Implant, Canaloplasty with the Omni surgical system, and Hydrus. Surgery date to be determined. Diagnosis: Age-related cataract of right eye, primary open-angle glaucoma of left eye moderate, optic cupping of both eyes, homonymous hemianopsia right. History of PVD, asymptomatic bilateral SOWMYA s/p CEA 03/2020, bilateral SOWMYA 60-79% on duplex US 07/19/2022. 6 mo follow up with vascular surgery, Dr Howard with imaging, PVR advised. No chest pain or shortness of breath. No limits walking a flat surface. Can take 2 flight of stairs without CP or SOBOE. Goes to [facility] cardiology. Dr Maurer. October visit, upcoming.No recent testing or medication changes reported. 1. Age Group: 65 - 74 years 2. Sex: male 3. Functional Status: Independent 4. Emergency Case: No 5. ASA Class: Mild systemic disease 6. Steroid use for chronic condition: No 7. Ascites within 30 days prior to surgery: No 8. Systemic Sepsis within 48 hours prior to surgery: None 9. Ventilator Dependent: No 10. Disseminated Cancer: No 11. Diabetes: None 12. Hypertension requiring medication: Yes 13. Congestive Heart Failure in 30 days prior to surgery: No 14. Dyspnea: No 15. Current Smoker within 1 Year: Yes 16. History of COPD: No 17. Dialysis: No 18. Acute Renal Failure: No 19. BMI Class Calculation: Normal Creatinine Date Value Ref Range Status 06/18/2022 0.93 0.73 - 1.22 mg/dL Final 08/30/2021 0.86 0.73 - 1.22 mg/dL Final 01/26/2021 0.86 0.73 - 1.22 mg/dL Final 06/23/2020 0.83 0.73 - 1.22 mg/dL Final Patient's last HgA1C was Hemoglobin A1C (%) Date Value 11/07/2017 5.1 Last 14 Encounter BP Readings: Date: BP: 08/21/2022 122/70 07/19/2022 130/75 06/18/2022 112/74 12/18/2021 131/68 08/30/2021 124/70 06/12/2021 127/77 03/13/2021 132/73 01/26/2021 122/68 08/15/2020 162/77 06/23/2020 120/78 05/11/2020 122/68 05/08/2020 126/69 03/31/2020 145/75 03/31/2020 141/90 Hyperlipidemia. Cholesterol, Total (mg/dL) Date Value 08/30/2021 280 01/26/2021 164 Total Cholesterol, Nonfasting (mg/dL) Date Value 06/18/2022 178 HDL Cholesterol (mg/dL) Date Value 08/30/2021 78 01/26/2021 74 HDL Cholesterol, Nonfasting (mg/dL) Date Value 06/18/2022 88 LDL Cholesterol (mg/dL) Date Value 08/30/2021 180 01/26/2021 81 LDL Cholesterol, Nonfasting (mg/dL) Date Value 06/18/2022 80 Triglyceride (mg/dL) Date Value 08/30/2021 108 01/26/2021 46 Triglycerides, Nonfasting (mg/dL) Date Value 06/18/2022 48 Review of Systems Constitutional: Negative. Respiratory: Negative. Cardiovascular: Negative. Objective BP 102/62 Pulse 69 Resp 16 Wt 73 kg (161 lb) SpO2 98% BMI 24.48 kg/m? Physical Exam Vitals and nursing note reviewed. Constitutional: Appearance: Normal appearance. HENT: Head: Normocephalic and atraumatic. Eyes: Conjunctiva/sclera: Conjunctivae normal. Neck: Thyroid: No thyroid mass or thyromegaly. Vascular: Normal carotid pulses. No JVD. Comments: audible carotid pulse bilateral Cardiovascular: Rate and Rhythm: Normal rate and regular rhythm. Heart sounds: Normal heart sounds. Pulmonary: Effort: Pulmonary effort is normal. Breath sounds: Normal breath sounds. Abdominal: General: Bowel sounds are normal. Palpations: Abdomen is soft. Musculoskeletal: Right lower leg: No edema. Left lower leg: No edema. Skin: General: Skin is warm and dry. Neurological: Mental Status: He is alert. Mental status is at baseline. ALLERGIES Allergen Reactions Seasonal Allergies Other: See Comments Sinus (more content not included)...[facility]01-20-[facility] History of Present illness Narrative* Kesha Boone, GOLDIE.WAX MACHINE OPERATOR - 08/23/2022 8:00 AM EST SUBJECTIVE: SHINGRIX VACCINE(1 of 2) Never done ADVANCE DIRECTIVE DISCUSSION due on 08/04/2022 COLORECTAL CANCER SCREENING due on 10/16/2022 HPI Denny Gomez is a 67 year old male. 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 ACTIVE PROBLEM LIST Anxiety and Depression Mixed Hyperlipidemia Essential Hypertension Paget's Bone Disease Elevated Psa, Less Than 10 Ng/Ml History of Cerebral Hemorrhage Vision Loss, Bilateral Homonymous Hemianopsia, Right Ocular Hypertension, Bilateral Optic Cupping of Both Eyes Combined Forms of Age-Related Cataract of Both Eyes Bilateral Carotid Artery Stenosis Pad (Peripheral Artery Disease) ([facility]) S/P Carotid Endarterectomy H/O Ischemic Left Mca Stroke Intracranial Atherosclerosis Atherosclerosis of [place] Artery of Extremity With Intermittent Claudication ([facility]) Iliac Artery Injury, Left, Initial Encounter Facial Swelling Vitamin D Deficiency Recurrent Depressive Disorder, in Remission ([facility]) Presents today for preoperative visit in internal medicine. Recently seen by Massiel Harrell MD, noted that intraocular pressures uncontrolled on maximum tolerated therapy for both eyes. Plan Cataract Surgery with Monofocal Intraocular lens Implant, Canaloplasty with the Omni surgical system, and Hydrus. Surgery date to be determined. Diagnosis: Age-related cataract of right eye, primary open-angle glaucoma of left eye moderate, optic cupping of both eyes, homonymous hemianopsia right. History of PVD, asymptomatic bilateral SOWMYA s/p CEA 03/2020, bilateral SOWMYA 60-79% on duplex US 07/19/2022. 6 mo follow up with vascular surgery, Dr Howard with imaging, PVR advised. No chest pain or shortness of breath. No limits walking a flat surface. Can take 2 flight of stairs without CP or SOBOE. Goes to [facility] cardiology. Dr Maurer. October visit, upcoming.No recent testing or medication changes reported. 1. Age Group: 65 - 74 years 2. Sex: male 3. Functional Status: Independent 4. Emergency Case: No 5. ASA Class: Mild systemic disease 6. Steroid use for chronic condition: No 7. Ascites within 30 days prior to surgery: No 8. Systemic Sepsis within 48 hours prior to surgery: None 9. Ventilator Dependent: No 10. Disseminated Cancer: No 11. Diabetes: None 12. Hypertension requiring medication: Yes 13. Congestive Heart Failure in 30 days prior to surgery: No 14. Dyspnea: No 15. Current Smoker within 1 Year: Yes 16. History of COPD: No 17. Dialysis: No 18. Acute Renal Failure: No 19. BMI Class Calculation: Normal Creatinine Date Value Ref Range Status 06/18/2022 0.93 0.73 - 1.22 mg/dL Final 08/30/2021 0.86 0.73 - 1.22 mg/dL Final 01/26/2021 0.86 0.73 - 1.22 mg/dL Final 06/23/2020 0.83 0.73 - 1.22 mg/dL Final Patient's last HgA1C was Hemoglobin A1C (%) Date Value 11/07/2017 5.1 Last 14 Encounter BP Readings: Date: BP: 08/21/2022 122/70 07/19/2022 130/75 06/18/2022 112/74 12/18/2021 131/68 08/30/2021 124/70 06/12/2021 127/77 03/13/2021 132/73 01/26/2021 122/68 08/15/2020 162/77 06/23/2020 120/78 05/11/2020 122/68 05/08/2020 126/69 03/31/2020 145/75 03/31/2020 141/90 Hyperlipidemia. Cholesterol, Total (mg/dL) Date Value 08/30/2021 280 01/26/2021 164 Total Cholesterol, Nonfasting (mg/dL) Date Value 06/18/2022 178 HDL Cholesterol (mg/dL) Date Value 08/30/2021 78 01/26/2021 74 HDL Cholesterol, Nonfasting (mg/dL) Date Value 06/18/2022 88 LDL Cholesterol (mg/dL) Date Value 08/30/2021 180 01/26/2021 81 LDL Cholesterol, Nonfasting (mg/dL) Date Value 06/18/2022 80 Triglyceride (mg/dL) Date Value 08/30/2021 108 01/26/2021 46 Triglycerides, Nonfasting (mg/dL) Date Value 06/18/2022 48 Review of Systems Constitutional: Negative. Respiratory: Negative. Cardiovascular: Negative. Objective BP 102/62 Pulse 69 Resp 16 Wt 73 kg (161 lb) SpO2 98% BMI 24.48 kg/m Physical Exam Vitals and nursing note reviewed. Constitutional: Appearance: Normal appearance. HENT: Head: Normocephalic and atraumatic. Eyes: Conjunctiva/sclera: Conjunctivae normal. Neck: Thyroid: No thyroid mass or thyromegaly. Vascular: Normal carotid pulses. No JVD. Comments: audible carotid pulse bilateral Cardiovascular: Rate and Rhythm: Normal rate and regular rhythm. Heart sounds: Normal heart sounds. Pulmonary: Effort: Pulmonary effort is normal. Breath sounds: Normal breath sounds. Abdominal: General: Bowel sounds are normal. Palpations: Abdomen is soft. Musculoskeletal: Right lower leg: No edema. Left lower leg: No edema. Skin: General: Skin is warm and dry. Neurological: Mental Status: He is alert. Mental status is at baseline. ALLERGIES Allergen Reactions Seasonal Allergies Other: See Comments Sinus, runny nose MEDICATIONS tamsulosin (FLOMAX) 0.4 mg TAKE 1 CAPSULE BY MOUTH EVERY DAY AT BEDTIME latanoprost (XALATAN) 0.005 % ophthalmic solution Use 1 Drop in both eyes daily at bedtime. dorzolamide-timolol (COSOPT) 22.3-6.8 mg/mL ophthalmic solution Use 1 Drop in both eyes twice daily. amLODIPine (NORVASC) 5 mg tablet Take 1 tablet by mouth once daily. citalopram (CELEXA) 40 mg tablet Take 1 tablet by mouth once daily. clopidogrel (PLAVIX) 75 mg tablet Take 1 tablet by mouth once daily. rosuvastatin (CRESTOR) 40 mg tablet Take 1 tablet by mouth once daily. alendronate (FOSAMAX) 70 mg tablet Take 1 tablet by mouth one time a week. Take with a full glass of water, on an empty stomach; do NOT lie down for 30minutes. trospium (SANCTURA) 20 mg tablet Take 20 mg by mouth twice daily. calcium carbonate-vitamin D3 1,000 mg(2,500 mg)-800 unit tab Take 1,000 mg by mouth once daily. mometasone-formoterol (DULERA) 100-5 mcg/actuation inhaler Inhale 2 Puffs as instructed twice daily. (Patient taking differently: Inhale 2 Puffs as instructed as needed.) cholecalciferol, Vitamin D3, (VITAMIN D3) 50,000 unit cap capsule Take 1 capsule by mouth once eachweek. albuterol HFA (PROAIR HFA) 90 mcg/actuation inhaler Inhale 2 Puffs as instructed every 4 hours as needed for up to 15 days. 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 Lukasz Beasley Paget disease of bone Stroke (cerebrum) ([facility]) Subdural hematoma 2018 Unspecified essential hypertension Essential hypertension Social History Tobacco Use Smoking status: Former Packs/day: 0.50 Years: 15.00 Pack years: 7.50 Types: Cigarettes Smokeless tobacco: Never Tobacco comments: 1 pack per 4 to 5 days (started 10 to 15 years ago)--as of 12/15/15 Vaping Use Vaping Use: Never used Substance Use Topics Alcohol use: Not Currently Drug use: Not Currently Component Latest Ref Rng & Units 06/16/2020 06/23/2020 01/26/2021 Protein, Total 6.3 - 8.0 g/dL 7.1 6.9 Albumin 3.9 - 4.9 g/dL 4.6 4.5 Calcium 8.5 - 10.2 mg/dL 9.9 9.9 Bilirubin, Total 0.2 - 1.3 mg/dL 0.3 0.5 Alkaline Phosphatase 38 - 113 U/L 131 (H) 133 (H) AST 14 - 40 U/L 19 21 Glucose 74 - 99 mg/dL 72 (L) 81 BUN 9 - 24 mg/dL 16 13 Creatinine 0.73 - 1.22 mg/dL 0.83 0.86 Sodium 136 - 144 mmol/L 141 141 Potassium 3.7 - 5.1 mmol/L 4.1 4.3 Chloride 97 - 105 mmol/L 104 105 CO2 22 - 30 mmol/L 28 26 Anion Gap 9 - 18 mmol/L 9 10 ALT 10 - 54 U/L 20 24 eGFR- >60 >60 eGFR-All Other Races . >60 >60 WBC 3.70 - 11.00 k/uL 8.37 9.56 RBC 4.20 - 6.00 m/uL 4.68 4.57 Hemoglobin 13.0 - 17.0 g/dL 14.1 14.3 Hematocrit 39.0 - 51.0 % 44.2 46.4 MCV 80.0 - 100.0 fL 94.4 101.5 (H) MCH 26.0 - 34.0 pG 30.1 31.3 MCHC 30.5 - 36.0 g/dL 31.9 30.8 RDW-CV 11.5 - 15.0 % 13.3 12.2 Platelet Count 150 - 400 k/uL 265 252 MPV 9.0 - 12.7 fL 11.0 11.4 Absolute nRBC <0.01 k/uL <0.01 <0.01 Cholesterol, Total <200 mg/dL 164 Triglyceride <150 mg/dL 46 HDL Cholesterol >39 mg/dL 74 LDL Cholesterol <100 mg/dL 81 Non HDL Cholesterol <130 mg/dL 90 Fasting Time hrs 12 VLDL Cholesterol <30 mg/dL 9 TC:HDL Ratio <5.10 2.22 LDL:HDL Ratio <2.54 1.09 PSA 0 - 4 ng/mL 2.48 Vitamin D 25 Hydroxy 31.0 - 80.0 ng/mL 39.5 41.8 Hep C Antibody IA Negative Negative ASSESSMENT/PLAN: 1. Preop exam for internal medicine - ICD9: V72.83, ICD10: Z01.818 (primary diagnosis) Testing per surgeon request today. Followed by [facility], initially seen for preoperative clearance 09/2021 for CEA. Stress test completed was negative for ischemia. See scanned documents. Today notes no CP or SOBOE. No change in functional capacity, able to complete at least 4 METS reported. History of MCA stroke. Not taking ASA, is taking Plavix. Recommend continuing if surgeon agreeable. Hypertension, lipids current well controlled. Smoking cessation advised and he is agreeable, reports currently smoking 1 pack per 2 weeks. Advise take antihypertensive medication amlodipine with a sip of water on the morning of surgery toavoid spike of BP with surgery. No additional testing needed from internal medicine perspective. Form will be completed and returned to Dr Harrell. - ECG COMPLETE - NSR incomplete RBBB, no ischemic changes 08/23/2022 - COMP METABOLIC PANEL - today 2. Ocular hypertension, bilateral - ICD9: 365.04, ICD10: H40.053 3. Optic cupping of both eyes - ICD9: 377.14, ICD10: H47.233 4. Combined forms of age-related cataract of both eyes - ICD9: 366.19, ICD10: H25.813 5. Homonymous hemianopsia, right - ICD9: 368.46, ICD10: H53.461 6. H/O ischemic left MCA stroke - ICD9: V12.54, ICD10: Z86.73 Has follow up with Dr. Harrell scheduled. 7. S/P carotid endarterectomy - ICD9: V45.89, ICD10: Z98.890 Following with vascular surgeon, 6 mo follow up with imaging. Kesha Boone APRN.WAX MACHINE OPERATOR Medical Decision Making: Problems: Moderate: 2+ stable chronic illnesses Data: Unique test(s) ordered: 2 Risk: Moderate: Decision on minor surgery w/ risk factors Medical Decision Making Level: 4 - Moderate documented in [facility] encounter[facility] NoteHNO ID: [id number] Author: Massiel Harrell MD Service: ? Author Type: Physician Type: Progress Notes Filed: 08/21/2022 10:13 AM Note Text: ASSESSMENT/PLAN: 1. Primary open angle glaucoma (POAG) of right eye, moderate stage - ICD9: 365.11, 365.72, ICD10: H40.1112 (primary diagnosis) - VISUAL FIELD 24-2 OU (BOTH EYES) - OCT OPTIC NERVE CIRRUS OU (BOTH EYES) - FUNDUS PHOTOS OU (BOTH EYES) Current Ophthalmic Meds latanoprost (XALATAN) 0.005 % ophthalmic solution Use 1 Drop in both eyes daily at bedtime. dorzolamide-timolol (COSOPT) 22.3-6.8 mg/mL ophthalmic solution Use 1 Drop in both eyes twice daily. Start: Systane Complete solution instill 1 drop 3 times daily Both Eyes. The nature of glaucoma was discussed, with emphasis on the non-reversible damage to the optic nerve. Treatment options and the importance of regular examinations and testing were covered in detail, as well as the consequences of non-compliance. The patient was given the opportunity to ask questions. Target Intraocular pressure: 12 mmHg Due to the following reason/s: Intraocular pressure not at desired target pressure An inability to comply with medication requirements due to physical or cognitive function Patient reported that the side effects of the medication/s are negatively impacting the patient's quality of life Patient does not desire an additional medication to be added to their existing regimen Patient is having difficulty with their co-payment obligations Patient's intraocular pressure uncontrolled on maximum tolerated therapy Both Eyes. Plan Cataract Surgery with Monofocal Intraocular lens Implant, Canaloplasty with the Omni surgical system, and Hydrus. PHYSICAL EXAM: Vital Signs: Blood pressure 122/70, pulse 61. Respiratory: Normal breath sounds, no wheezing. CARD: Normal heart sounds 1 AND 2, normal sinus rhythm. 2. Combined forms of age-related cataract of right eye - ICD9: 366.19, ICD10: H25.811 - IOL BIOMETRY W/ IOL CALC OU (BOTH EYES) Plan Cataract Surgery with Monofocal Intraocular lens Implant, Canaloplasty with the Omni surgical system, and Hydrus. 3. Primary open angle glaucoma (POAG) of left eye, moderate stage - ICD9: 365.11, 365.72, ICD10: H40.1122 - VISUAL FIELD 24-2 OU (BOTH EYES) - OCT OPTIC NERVE CIRRUS OU (BOTH EYES) - FUNDUS PHOTOS OU (BOTH EYES) Current Ophthalmic Meds latanoprost (XALATAN) 0.005 % ophthalmic solution Use 1 Drop in both eyes daily at bedtime. dorzolamide-timolol (COSOPT) 22.3-6.8 mg/mL ophthalmic solution Use 1 Drop in both eyes twice daily. Start: Systane Complete solution instill 1 drop 3 times daily Both Eyes. The nature of glaucoma was discussed, with emphasis on the non-reversible damage to the optic nerve. Treatment options and the importance of regular examinations and testing were covered in detail, as well as the consequences of non-compliance. The patient was given the opportunity to ask questions. Target Intraocular pressure: 12 mmHg Due to the following reason/s: Intraocular pressure not at desired target pressure An inability to comply with medication requirements due to physical or cognitive function Patient reported that the side effects of the medication/s are negatively impacting the patient's quality of life Patient does not desire an additional medication to be added to their existing regimen Patient is having difficulty with their co-payment obligations Patient's intraocular pressure uncontrolled on maximum tolerated therapy Both Eyes. Plan Cataract Surgery with Monofocal Intraocular lens Implant, Canaloplasty with the Omni surgical system, and Hydrus. 4. Combined forms of age-related cataract of left eye - ICD9: 366.19, ICD10: H25.812 - IOL BIOMETRY W/ IOL CALC OU (BOTH EYES) Plan Cataract Surgery with Monofocal Intraocular lens Implant, Canaloplasty with the Omni surgical system, and Hydrus. 5. Optic cupping of both eyes - ICD9: 377.14, ICD10: H47.233 - FUNDUS PHOTOS OU (BOTH EYES) Monitor 6. Homonymous hemianopsia, right - ICD9: 368.46, ICD10: H53.461 Monitor 7. Essential hypertension - ICD9: 401.9, ICD10: I10 Continue to monitor with primary care physician. 8. Hypercholesteremia - ICD9: 272.0, ICD10: E78.00 Continue to monitor with primary care physician. Massiel Harrell MD I have confirmed and edited as necessary the relevant ophthalmic history, review of systems, surgical history, and ophthalmological examination findings as obtained by the ophthalmic technical staff. I have seen and examined Denny Gomez. I have discussed the examination findings, diagnosis, and treatment options with Denny Gomez and/or his family. I have also reviewed and agree with the assessment and plan as stated above and agree with all its relevant components. I gave the patient the opportunity to ask questions about the findings, diagnosis, and treatment options.[facility]12-05-2022 Miscellaneous Notes* Telephone Encounter - Kaylan Garza LPN - 07/08/2022 3:11 PM EST PATIENT's NOTIFIED OF SAME. * Telephone Encounter - Irlanda Canela APRN.CNP - 07/08/2022 1:55 PM EST Hello. Please call patient and let them know recent labs looked stable and without problems. Alkaline phosphate is still elevated but better, most likely from his Paget's. No changes needed at this time and to keep next scheduled appointment. Please let me know if questions or concerns. Thanks! Irlanda Canela APRN.GRICEL documented in this encounterSelect [facility]11-11-2022 Miscellaneous Notes* Telephone Encounter - Yolanda Whatley RN - 06/14/2022 2:43 PM EST Reason for call: Mrs Gomez called and she would like to reschedule her husbands appointment with Dr Howard. Pt needs to be scheduled after 06/21/22. Contact Name: Betsey Gomez Home and cell number: [phone] Diagnosis: Carotid artery stenosis Kind RegardsYolanda documented in this encounterCleveland [id number] History of Present illness Narrative* Irwin Camilo MD - 05/29/2022 11:03 AM EDT Assessment and Plan 1. Dry eye syndrome of both eyes 2. 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 Homonymous hemianopsia, right -history of stroke -followed by neurology -tay visual field (HVF) stable both eyes 4. Optic cupping of both eyes -intraocular pressure in high teens -(+) family history brother glaucoma -thin corneas -contributing to visual field changes on top of CVA -progressive thinning on OCT -poor compliance with eyedrops 5. Combined forms of age-related cataract of both eyes -early visual significance Plan: -artificial tears four times a day both eyes -latanoprost at bedtime both eyes - intraocular pressure better -cosopt twice a day both eyes -follow-up 3-[address] Harrell for consideration of Selected laser trabeculoplasty (SLT) right eye / sooner as needed I have confirmed and edited as necessary the relevant ophthalmic history, ROS, and the neuro exam findings as obtained by others. I have seen and examined Denny Gomez. I have discussed the case and the management of this patient's care with the Resident/Fellow, if applicable. I also have reviewed and agree with the assessment and plan as stated above and agree withall of its relevant components. Irwin Camilo MD documented in this encounterSelect [facility]10-[facility] Chief complaint Narrative - Reported* An interactive audio and video telecommunication system which permits real time communications between the patient (at the originating site) and provider (at the distant site) was utilized to providethis telehealth service. * Verbal consent was requested and obtained from DENNY JASON on this date, 05/27/2022 10:00 AM , fora telehealth visit. * 2 mo w/ psa TE-Yyoklnq-Xeucyjjt HC 232 DO Work Phone: [phone] 623-624510-24-2022 Chief complaint Narrative - Reported* An interactive audio and video telecommunication system which permits real time communications between the patient (at the originating site) and provider (at the distant site) was utilized to providethis telehealth service. * Verbal consent was requested and obtained from DENNY GOMEZ on this date, 05/27/2022 10:00 AM , fora telehealth visit. * 2 mo w/ psa QO-Dqptatb-Hbzizggp HC 232 DO Work Phone: [phone] 307-937310-22-2022 History of Present illness NarrativePatient has hx of elevated PSA. Most recent PSA was 1.05 ON 05/25. Prior PSA was 4.0 (11/23) Previous PSA was 1.86 on 05/24, prior was 1.86 (12/22) on Proscar since 10/22.Normal MRI on 02/22. Patient hadTRUS bx 12/2015 showed OLIVERIO favor benign and HGPIN (L). Hx of gross hematuria. Last cysto was on 10/2020..... No recent sx. Chronic BPH sx are mild and stable. Denies urgency and frequency. Denies dysur ia. Denies hematuria. Nocturia x1-2. . He is taking Flomax and proscar. ED is chronic.[facility] 232 DO Work Phone: [phone] 177-902710-22-2022 History of Present illness NarrativePatient has hx of elevated PSA. Most recent PSA was 1.05 ON 05/25. Prior PSA was 4.0 (11/23) Previous PSA was 1.86 on 05/24, prior was 1.86 (12/22) on Proscar since 10/22.Normal MRI on 02/22. Patient hadTRUS bx 12/2015 showed OLIVERIO favor benign and HGPIN (L). Hx of gross hematuria. Last cysto was on 10/2020..... No recent sx. Chronic BPH sx are mild and stable. Denies urgency and frequency. Denies dysur ia. Denies hematuria. Nocturia x1-2. . He is taking Flomax and proscar. ED is chronic.[facility] 232 DO Work Phone: [phone] 614-862110-12-2022 History of Present illness Narrative* Irwin Camilo MD - 05/15/2022 10:38 AM EDT Assessment and Plan 1. Dry eye syndrome of both eyes 2. 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 Homonymous hemianopsia, right -history of stroke -followed by neurology -tay visual field (HVF) stable both eyes 4. Optic cupping of both eyes -intraocular pressure in high teens -(+) family history brother glaucoma -thin corneas -contributing to visual field changes on top of CVA -progressive thinning on OCT -poor compliance with eyedrops 5. Combined forms of age-related cataract of both eyes -early visual significance Plan: -artificial tears four times a day both eyes -latanoprost at bedtime both eyes - intraocular pressure better -cosopt twice a day both eyes -follow-up 3-[address] Harrell for consideration of Selected laser trabeculoplasty (SLT) right eye / sooner as needed I have confirmed and edited as necessary the relevant ophthalmic history, ROS, and the neuro exam findings as obtained by others. I have seen and examined Denny Gomez. I have discussed the case and the management of this patient's care with the Resident/Fellow, if applicable. I also have reviewed and agree with the assessment and plan as stated above and agree withall of its relevant components. Irwin Camilo MD documented in this encounterSelect [facility]08-01-2022 Chief complaint Narrative - Reported* An interactive audio and video telecommunication system which permits real time communications between the patient (at the originating site) and provider (at the distant site) was utilized to providethis telehealth service. * Verbal consent was requested and obtained from DENNY GOMEZ on this date, 03/04/2022 09:30 AM , fora telehealth visit. * MRI results PB-Pxxiydv-Pasmnig Work Phone: [phone] 116-611907-22-2022 History of Present illness Narrative* Nathaly Herr LPN - 02/22/2022 9:53 AM EDT Patient presents for COVID booster. Denies any problems at this time. Tolerated injection well. Nathaly Herr LPN documented in this encounterSelect [facility]06-13-2022 History of Present illness Narrative* Tammy Thompson MA - 01/14/2022 11:08 AM EDT POPULATION HEALTH NAVIGATION OUTREACH Action/ Patient due for yearly medicare wellness visit 01/26/2022. [email or web address] Pt identified by name and : NO Outreach Outcome/Action Unable to reach patient: Left message Did you use a PCP flex slot to schedule this appointment? N/A Reason for Outreach Care Gap or Scheduling/Wellness visits Payer: Payor: [employer] / Plan: [employer] HMO / Product Type: HMO / Care Gap Reviewed:: Annual Wellness visit Reminder: Reminder note to check Health Maintenance for items below Health Maintenance items due: BP CONTROLLED (<130/80) due on 11/28/2019 PNEUMOCOCCAL: 64+(2 - PCV) due on 04/05/2021 ADVANCE DIRECTIVE DISCUSSION Never done Message Sent to Practice: No Navigation Signature: Tammy Thompson MA January 14, 2022 11:08 AM documented in this encounterSelect [facility]05-25-2022 Instructions* Patient Instructions* Irwin Camilo MD - 12/26/2021 11:38 AM EDT Images from the original note were not included. documented in this encounterSelect [facility]05-25-2022 History of Present illness Narrative* Irwin Camilo MD - 12/26/2021 11:35 AM EDT Assessment and Plan 1. Dry eye syndrome of both eyes 2. 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 Homonymous hemianopsia, right -history of stroke -followed by neurology -tay visual field (HVF) stable both eyes 4. Optic cupping of both eyes -intraocular pressure in high teens -(+) family history brother glaucoma -thin corneas -OCT OPTIC NERVE CIRRUS OU (BOTH EYES) inferior thinning right eye, borderline superior thinning left eye -likely contributing to visual field changes on top of CVA -cosopt not approved by insurance 5. Combined forms of age-related cataract of both eyes -early visual significance Plan: -artificial tears four times a day both eyes -latanoprost at bedtime both eyes - intraocular pressure better -switch to cosopt twice a day both eyes -follow-up 4-6 months after for dilation and OCT nerve / sooner as needed. If changes consistent right eye, to consider addingdrop I have confirmed and edited as necessary the relevant ophthalmic history, ROS, and the neuro exam findings as obtained by others. I have seen and examined Denny Gomez. I have discussed the case and the management of this patient's care with the Resident/Fellow, if applicable. I also have reviewed and agree with the assessment and plan as stated above and agree withall of its relevant components. Irwin Camilo MD documented in this encounterSelect [facility]05-17-2022 History of Present illness Narrative* Rolan Howard MD - 12/18/2021 2:26 PM EDT Images from the original note were not included. [facility] [place] DEPARTMENT OF VASCULAR SURGERY OUTPATIENT VISIT DATE December 18, 2021 OUTPATIENT VISIT TYPE ESTABLISHED SERVICE DATE: 12/18/2021 SERVICE TIME: 2:38 PM PRIMARY CARE PHYSICIAN: Malu Rowe MD HISTORY OF PRESENT ILLNESS: Mr. Gomez is a 66 year old male who presents today for a vascular surgery follow-up visit carotid disease and PAD. PRIOR VASCULAR INTERVENTIONS: Left CEA on 03/24/20 Bilateral femoral endarterectomies and iliac stenting on 04/04/20 No strokes or TIA. Walking has improved. US today with slight increase in ANURADHA stenosis on 60 - 79%and stable LICA Stenosis 60 - 79% post endarterectomies. 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 Lukasz Beasley Paget disease of bone Stroke (cerebrum) (HCC) Subdural hematoma (HCC) 2019 Unspecified essential hypertension Essential hypertension PAST SURGICAL HISTORY Procedure Laterality Date ARTL CATHJ/CANNULJ MNTR/TRANSFUSION SPX PRQ 02-16-08 CAROTID ENDARTERECTOMY Bilateral PAST SURGICAL HISTORY OF Left 2013 Lt elbow cyst excision PAST SURGICAL HISTORY OF L knee arthroscopic surgery TEAEC W/PATCH GRF CAROTID VERTB SUBCLAV NECK INC 02/16/2008 right CEA SOCIAL HISTORY Social History Tobacco Use Smoking status: Former Smoker Packs/day: 0.50 Years: 15.00 Pack years: 7.50 Types: Cigarettes Smokeless tobacco: Never Used Tobacco comment: 1 pack per 4 to 5 days (started 10 to 15 years ago)--as of 12/15/15 Vaping Use Vaping Use: Never used Substance Use Topics Alcohol use: Not Currently Drug use: Not Currently MEDICATIONS: dorzolamide-timolol (COSOPT) 22.3-6.8 mg/mL ophthalmic solution Use 1 Drop in both eyes twice daily. latanoprost (XALATAN) 0.005 % ophthalmic solution Use 1 Drop in both eyes daily at bedtime. amLODIPine (NORVASC) 5 mg tablet Take 1 tablet by mouth once daily. citalopram (CELEXA) 40 mg tablet Take 1 tablet by mouth once daily. clopidogrel (PLAVIX) 75 mg tablet Take 1 tablet by mouth once daily. rosuvastatin (CRESTOR) 40 mg tablet Take 1 tablet by mouth once daily. alendronate (FOSAMAX) 70 mg tablet Take 1 tablet by mouth one time a week. Take with a full glass of water, on an empty stomach; do NOT lie down for 30minutes. trospium (SANCTURA) 20 mg tablet Take 20 mg by mouth twice daily. calcium carbonate-vitamin D3 1,000 mg(2,500 mg)-800 unit tab Take 1,000 mg by mouth once daily. mometasone-formoterol (DULERA) 100-5 mcg/actuation inhaler Inhale 2 Puffs as instructed twice daily. albuterol HFA (PROAIR HFA) 90 mcg/actuation inhaler Inhale 2 Puffs as instructed every 4 hours as needed for up to 15 days. cholecalciferol, Vitamin D3, (VITAMIN D3) 50,000 unit cap capsule Take 1 capsule by mouth once eachweek. ALLERGIES: ALLERGIES Allergen Reactions Seasonal Allergies Other: See Comments Sinus, runny nose PHYSICAL EXAM: BP 131/68 Pulse 69 General: Alert and oriented Integumentary: Normal color, no rash, no lesions. HEENT: EOM, pupils equal, round and reactive. Neurological: Normal cognition and motor skills. Diagnostic tests reviewed for today's visit: Carotid Duplex: Compared to prior study of 06/12/2021, right internal carotid artery has increased to 60-79% stenosis (previously 40-59%). Left internal carotid artery remains at 60-79% stenosis however; ICA/CCA ratio has increased from 3.2 to 4.1. RIGHT SIDE Common carotid artery: 50-99% stenosis. Endarterectomy patch at distal : 1.27cm. Internal carotid artery: 60-79% stenosis. Findings may be overestimated due to proximal stenosis . Vertebral artery: Patent and antegrade flow noted. Innominate artery: Plaque visualized without evidence of hemodynamically significant stenosis. Subclavian artery: Plaque visualized without evidence of hemodynamically significant stenosis. LEFT SIDE Common carotid artery: Plaque visualized without evidence of hemodynamically significant stenosis. Endarterectomy patch at distal measuring 1.29cm. Internal carotid artery: 60-79% stenosis. ICA/CCA ratio of 4.1 is indicative of a >70% stenosis. External carotid artery: Occluded at origin, reconstituted proximal. Vertebral artery: Patent and antegrade flow noted. ABIs: RIGHT SIDE Resting right ankle brachial index: 0.69 Abnormal ankle brachial index at rest diagnostic of peripheral artery disease. Right ankle: Moderate disease at rest. LEFT SIDE Resting left ankle brachial index: 0.73 Abnormal ankle brachial index at rest diagnostic of peripheral artery disease. Left ankle: Mild disease at rest. IMPRESSION: Mr. Gomez is a 66 year old male with recurrent asymptomatic bilateral carotid disease with mild progression of ANURADHA stenosis 60 - 79%. Stable PAD s/p bilateral femoral endart with iliac stenting PLAN and RECOMMENDATIONS: - Continue cardiovascular risk factor modification with blood pressure control and statin therapy as tolerated. - Follow up in 6 months with carotid duplex. Elias Xiong MD [facility] STAFF PHYSICIAN NOTE OF PERSONAL INVOLVEMENT IN CARE IMPRESSION: 66 year old male with recurrent asymptomatic bilateral ICA stenosis. LEONARDO stable. Carotid duplex reviewed. PLAN: Continue DAPT and high intensity statin therapy. Repeat carotid duplex in 6 months. I have reviewed the documentation obtained and documented by the Resident. I have personally performed a face to face assessment of the patient and have personally participated on the mcclure components of the history, exam and medical decision making I have discussed the case and management of the patient's care with patient and spouse. SIGNATURE: Rolan Howard MD PATIENT NAME: Denny Gomez DATE: December 18, 2021 TIME: 2:38 PM documented in this encounterSelect [facility]04-22-2022 History of Present illness NarrativePatient is here for Prostate MRI results. MRI showed no evidence of clinically significant neoplasm. Most recent PSA was 4.0 (11/23) Previous PSA was 1.86 on 05/24, prior was 1.86 (12/22) on Proscar since 10/22. 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 Hx of gross hematuria. Last cysto was on 10/2020..... No recent sx. Chronic BPH sx are mild and stable. Denies urgency and frequency. Denies dysuria. Denies hematuria. Nocturia x1-2. . He is taking Flomax and proscar. ED is chronic. [facility] Work Phone: [phone] Instructions* Patient Instructions* Irwin Camilo MD - 11/06/2021 10:54 AM EDT Images from the original note were not included. documented in this encounterSelect [facility]04-05-2022 History of Present illness Narrative* Irwin Camilo MD - 11/06/2021 10:43 AM EDT Assessment and Plan 1. Dry eye syndrome of both eyes 2. 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 Homonymous hemianopsia, right -history of stroke -followed by neurology -tay visual field (HVF) stable both eyes 4. Optic cupping of both eyes -intraocular pressure in high teens -(+) family history brother glaucoma -thin corneas -OCT OPTIC NERVE CIRRUS OU (BOTH EYES) inferior thinning right eye, borderline superior thinning left eye -likely contributing to visual field changes on top of CVA 5. Combined forms of age-related cataract of both eyes -early visual significance Plan: -artificial tears four times a day both eyes -start latanoprost at bedtime both eyes - no change in intraocular pressure -switch to cosopt twice a day both eyes -follow-up 4-6 months after for dilation and OCT nerve / sooner as needed I have confirmed and edited as necessary the relevant ophthalmic history, ROS, and the neuro exam findings as obtained by others. I have seen and examined Denny Gomez. I have discussed the case and the management of this patient's care with the Resident/Fellow, if applicable. I also have reviewed and agree with the assessment and plan as stated above and agree withall of its relevant components. Irwin Camilo MD documented in this encounterSelect [facility]03-24-2022 Miscellaneous Notes* Telephone Encounter - Estee Carmen LPN - 10/25/2021 10:24 AM EDT Patient notified. Estee Carmen LPN * Telephone Encounter - Kesha Boone APRN.WAX MACHINE OPERATOR - 10/25/2021 7:34 AM EDT Please let him know the fecal occult blood test was negative documented in this encounterSelect Medical Special[facility]11-20-2021 History of Present illness NarrativePatient presents to the office today for Urinary Incontinence x 1 week. Patient has hx of elevated PSA...Most recent PSA was 2.48 06/23.. Prior PSA was 2.51 on 10/2019...Prior PSA was 4.04 11/17..Patient had TRUS bx 12/2015 showed OLIVEIRO favor benign and HGPIN (L)....Pt. has hx of hypogonadism...Pt is not on replacement..Most recent T level was 328 on 10/2019...BPH sx are chronic and moderate....Some urgency and frequency. Denies dysuria. Denies hematuria..Nocturia x6-7.Patient has been out of his trospium since August. ..Pt. is not taking any medications for the prostate...Pt. was taking Flomax in the past but D/C..ED is chronic. Patient states he has tried Tadalafil and Sildenafil with no success. Patient had recent carotid artery w/stent placement done in 05/23..[facility] Work Phone: [phone]) 252-967805-01-2021 History of Present illness NarrativePatient presents to the office today for a 6 MO F/U w/PSA. Patient has a Hx of Elevated PSA. Most recent PSA was 1.86 on 05/24, prior was 1.86 (on Proscar since 10/22) on 12/2020. Prior PSA was 2.48 on06/2020. Prior PSA was 2.51 on 10/2019. 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 Hx of gross hematuria. Last cysto was on 10/2020..... No recent sx. Chronic BPH sx are mild and stable. Denies urgency and frequency. Denies dysuria. Denies hematuria. Nocturia x1-2. . He is taking Flomax and proscar. ED is chronic. [employer] Work Phone: [phone]) 636-267909-04-2020 History of Past illness Narrative* Problem Noted Date Resolved Date Abnormal hemoglobin (Hgb) 04/07/20202020 Overview: Hx: POD2 labs with drop in hemoglobin to 8.4 from baseline 10.6; transfused 1u PRBC POD2 A: asymptomatic, no associated tachycardia or hypotension P: f/u AM CBC On mechanically assisted ventilation 04/04/2020 04/05/2020 Overview: History: post op Assessment: intubated and sedated Plan: WTE Stress hyperglycemia 04/04/2020 04/06/2020 Overview: History: post op Assessment: Perioperative insulin resistance and exacerbation of hyperglycemia Plan: SSI Post-op pain 04/04/2020 04/08/2020 Overview: History: post op Assessment: well controlled Plan: PRN oxycodone Narcotic minimization Multimodal therapy Subdural hematoma 01/29/2019 06/21/2020 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 Lukasz Beasley documented as of this encounter (statuses as of 10/25/2021) [facility] History of Past illness Narrative* Problem Noted Date Resolved Date Abnormal hemoglobin (Hgb) 04/07/20202020 Overview: Hx: POD2 labs with drop in hemoglobin to 8.4 from baseline 10.6; transfused 1u PRBC POD2 A: asymptomatic, no associated tachycardia or hypotension P: f/u AM CBC On mechanically assisted ventilation 04/04/2020 04/05/2020 Overview: History: post op Assessment: intubated and sedated Plan: WTE Stress hyperglycemia 04/04/2020 04/06/2020 Overview: History: post op Assessment: Perioperative insulin resistance and exacerbation of hyperglycemia Plan: SSI Post-op pain 04/04/2020 04/08/2020 Overview: History: post op Assessment: well controlled Plan: PRN oxycodone Narcotic minimization Multimodal therapy Subdural hematoma 01/29/2019 06/21/2020 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 Lukasz Beasley documented as of this encounter (statuses as of 11/06/2021) [facility] History of Past illness Narrative* Problem Noted Date Resolved Date Abnormal hemoglobin (Hgb) 04/07/20202020 Overview: Hx: POD2 labs with drop in hemoglobin to 8.4 from baseline 10.6; transfused 1u PRBC POD2 A: asymptomatic, no associated tachycardia or hypotension P: f/u AM CBC On mechanically assisted ventilation 04/04/2020 04/05/2020 Overview: History: post op Assessment: intubated and sedated Plan: WTE Stress hyperglycemia 04/04/2020 04/06/2020 Overview: History: post op Assessment: Perioperative insulin resistance and exacerbation of hyperglycemia Plan: SSI Post-op pain 04/04/2020 04/08/2020 Overview: History: post op Assessment: well controlled Plan: PRN oxycodone Narcotic minimization Multimodal therapy Subdural hematoma 01/29/2019 06/21/2020 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 Lukasz Beasley documented as of this encounter (statuses as of 12/18/2021) [facility] History of Past illness Narrative* Problem Noted Date Resolved Date Abnormal hemoglobin (Hgb) 04/07/20202020 Overview: Hx: POD2 labs with drop in hemoglobin to 8.4 from baseline 10.6; transfused 1u PRBC POD2 A: asymptomatic, no associated tachycardia or hypotension P: f/u AM CBC On mechanically assisted ventilation 04/04/2020 04/05/2020 Overview: History: post op Assessment: intubated and sedated Plan: WTE Stress hyperglycemia 04/04/2020 04/06/2020 Overview: History: post op Assessment: Perioperative insulin resistance and exacerbation of hyperglycemia Plan: SSI Post-op pain 04/04/2020 04/08/2020 Overview: History: post op Assessment: well controlled Plan: PRN oxycodone Narcotic minimization Multimodal therapy Subdural hematoma 01/29/2019 06/21/2020 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 Lukasz Beasley documented as of this encounter (statuses as of 12/19/2021) [facility] History of Past illness Narrative* Problem Noted Date Resolved Date Abnormal hemoglobin (Hgb) 04/07/20202020 Overview: Hx: POD2 labs with drop in hemoglobin to 8.4 from baseline 10.6; transfused 1u PRBC POD2 A: asymptomatic, no associated tachycardia or hypotension P: f/u AM CBC On mechanically assisted ventilation 04/04/2020 04/05/2020 Overview: History: post op Assessment: intubated and sedated Plan: WTE Stress hyperglycemia 04/04/2020 04/06/2020 Overview: History: post op Assessment: Perioperative insulin resistance and exacerbation of hyperglycemia Plan: SSI Post-op pain 04/04/2020 04/08/2020 Overview: History: post op Assessment: well controlled Plan: PRN oxycodone Narcotic minimization Multimodal therapy Subdural hematoma 01/29/2019 06/21/2020 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 Lukasz Beasley documented as of this encounter (statuses as of 12/26/2021) [facility] History of Past illness Narrative* Problem Noted Date Resolved Date Abnormal hemoglobin (Hgb) 04/07/20202020 Overview: Hx: POD2 labs with drop in hemoglobin to 8.4 from baseline 10.6; transfused 1u PRBC POD2 A: asymptomatic, no associated tachycardia or hypotension P: f/u AM CBC On mechanically assisted ventilation 04/04/2020 04/05/2020 Overview: History: post op Assessment: intubated and sedated Plan: WTE Stress hyperglycemia 04/04/2020 04/06/2020 Overview: History: post op Assessment: Perioperative insulin resistance and exacerbation of hyperglycemia Plan: SSI Post-op pain 04/04/2020 04/08/2020 Overview: History: post op Assessment: well controlled Plan: PRN oxycodone Narcotic minimization Multimodal therapy Subdural hematoma 01/29/2019 06/21/2020 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 Lukasz Beasley documented as of this encounter (statuses as of 01/14/2022) [facility] History of Past illness Narrative* Problem Noted Date Resolved Date Abnormal hemoglobin (Hgb) 04/07/20202020 Overview: Hx: POD2 labs with drop in hemoglobin to 8.4 from baseline 10.6; transfused 1u PRBC POD2 A: asymptomatic, no associated tachycardia or hypotension P: f/u AM CBC On mechanically assisted ventilation 04/04/2020 04/05/2020 Overview: History: post op Assessment: intubated and sedated Plan: WTE Stress hyperglycemia 04/04/2020 04/06/2020 Overview: History: post op Assessment: Perioperative insulin resistance and exacerbation of hyperglycemia Plan: SSI Post-op pain 04/04/2020 04/08/2020 Overview: History: post op Assessment: well controlled Plan: PRN oxycodone Narcotic minimization Multimodal therapy Subdural hematoma 01/29/2019 06/21/2020 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 Lukasz Beasley documented as of this encounter (statuses as of 02/22/2022) [facility] History of Past illness Narrative* Problem Noted Date Resolved Date Abnormal hemoglobin (Hgb) 04/07/20202020 Overview: Hx: POD2 labs with drop in hemoglobin to 8.4 from baseline 10.6; transfused 1u PRBC POD2 A: asymptomatic, no associated tachycardia or hypotension P: f/u AM CBC On mechanically assisted ventilation 04/04/2020 04/05/2020 Overview: History: post op Assessment: intubated and sedated Plan: WTE Stress hyperglycemia 04/04/2020 04/06/2020 Overview: History: post op Assessment: Perioperative insulin resistance and exacerbation of hyperglycemia Plan: SSI Post-op pain 04/04/2020 04/08/2020 Overview: History: post op Assessment: well controlled Plan: PRN oxycodone Narcotic minimization Multimodal therapy Subdural hematoma 01/29/2019 06/21/2020 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 Lukasz Beasley documented as of this encounter (statuses as of 05/15/2022) [facility] History of Past illness Narrative* Problem Noted Date Resolved Date Abnormal hemoglobin (Hgb) 04/07/20202020 Overview: Hx: POD2 labs with drop in hemoglobin to 8.4 from baseline 10.6; transfused 1u PRBC POD2 A: asymptomatic, no associated tachycardia or hypotension P: f/u AM CBC On mechanically assisted ventilation 04/04/2020 04/05/2020 Overview: History: post op Assessment: intubated and sedated Plan: WTE Stress hyperglycemia 04/04/2020 04/06/2020 Overview: History: post op Assessment: Perioperative insulin resistance and exacerbation of hyperglycemia Plan: SSI Post-op pain 04/04/2020 04/08/2020 Overview: History: post op Assessment: well controlled Plan: PRN oxycodone Narcotic minimization Multimodal therapy Subdural hematoma 01/29/2019 06/21/2020 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 Lukasz Beasley documented as of this encounter (statuses as of 05/29/2022) [facility] History of Past illness Narrative* Problem Noted Date Resolved Date Abnormal hemoglobin (Hgb) 04/07/20202020 Overview: Hx: POD2 labs with drop in hemoglobin to 8.4 from baseline 10.6; transfused 1u PRBC POD2 A: asymptomatic, no associated tachycardia or hypotension P: f/u AM CBC On mechanically assisted ventilation 04/04/2020 04/05/2020 Overview: History: post op Assessment: intubated and sedated Plan: WTE Stress hyperglycemia 04/04/2020 04/06/2020 Overview: History: post op Assessment: Perioperative insulin resistance and exacerbation of hyperglycemia Plan: SSI Post-op pain 04/04/2020 04/08/2020 Overview: History: post op Assessment: well controlled Plan: PRN oxycodone Narcotic minimization Multimodal therapy Subdural hematoma 01/29/2019 06/21/2020 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 Lukasz Beasley documented as of this encounter (statuses as of 06/14/2022) [facility] History of Past illness Narrative* Problem Noted Date Resolved Date Abnormal hemoglobin (Hgb) 04/07/20202020 Overview: Hx: POD2 labs with drop in hemoglobin to 8.4 from baseline 10.6; transfused 1u PRBC POD2 A: asymptomatic, no associated tachycardia or hypotension P: f/u AM CBC On mechanically assisted ventilation 04/04/2020 04/05/2020 Overview: History: post op Assessment: intubated and sedated Plan: WTE Stress hyperglycemia 04/04/2020 04/06/2020 Overview: History: post op Assessment: Perioperative insulin resistance and exacerbation of hyperglycemia Plan: SSI Post-op pain 04/04/2020 04/08/2020 Overview: History: post op Assessment: well controlled Plan: PRN oxycodone Narcotic minimization Multimodal therapy Subdural hematoma 01/29/2019 06/21/2020 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 Lukasz Beasley documented as of this encounter (statuses as of 07/08/2022) [facility] History of Past illness Narrative* Problem Noted Date Resolved Date Abnormal hemoglobin (Hgb) 04/07/20202020 Overview: Hx: POD2 labs with drop in hemoglobin to 8.4 from baseline 10.6; transfused 1u PRBC POD2 A: asymptomatic, no associated tachycardia or hypotension P: f/u AM CBC On mechanically assisted ventilation 04/04/2020 04/05/2020 Overview: History: post op Assessment: intubated and sedated Plan: WTE Stress hyperglycemia 04/04/2020 04/06/2020 Overview: History: post op Assessment: Perioperative insulin resistance and exacerbation of hyperglycemia Plan: SSI Post-op pain 04/04/2020 04/08/2020 Overview: History: post op Assessment: well controlled Plan: PRN oxycodone Narcotic minimization Multimodal therapy Subdural hematoma 01/29/2019 06/21/2020 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 Lukasz Beasley documented as of this encounter (statuses as of 07/19/2022) [facility] History of Past illness Narrative* Problem Noted Date Resolved Date Abnormal hemoglobin (Hgb) 04/07/20202020 Overview: Hx: POD2 labs with drop in hemoglobin to 8.4 from baseline 10.6; transfused 1u PRBC POD2 A: asymptomatic, no associated tachycardia or hypotension P: f/u AM CBC On mechanically assisted ventilation 04/04/2020 04/05/2020 Overview: History: post op Assessment: intubated and sedated Plan: WTE Stress hyperglycemia 04/04/2020 04/06/2020 Overview: History: post op Assessment: Perioperative insulin resistance and exacerbation of hyperglycemia Plan: SSI Post-op pain 04/04/2020 04/08/2020 Overview: History: post op Assessment: well controlled Plan: PRN oxycodone Narcotic minimization Multimodal therapy Subdural hematoma 01/29/2019 06/21/2020 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 Lukasz Beasley documented as of this encounter (statuses as of 08/23/2022) [facility] Diagnosis Homonymous hemianopsia, right- Primary Dry eye syndrome of both eyes Meibomian gland dysfunction (MGD) of upper and lower lids of both eyes Optic cupping of both eyes Combined forms of age-related cataract of both eyes Other and combined forms of senile cataract Subdural hematoma (HCC) Subdural hemorrhage documented in this encounter [facility] Diagnosis Bilateral carotid artery stenosis- Primary Occlusion and stenosis of carotid artery without mention of cerebral infarction documented in this encounter [facility] Diagnosis Bilateral carotid artery stenosis- Primary Occlusion and stenosis of carotid artery without mention of cerebral infarction Critical lower limb ischemia (HCC) Unspecified circulatory system disorder documented [facility] this encounter [facility] Diagnosis Primary open angle glaucoma (POAG) of both eyes, mild stage- Primary Homonymous hemianopsia, right Optic cupping of both eyes Dry eye syndrome of both eyes Meibomian gland dysfunction (MGD) of upper and lower lids of both eyes Combined forms of age-related cataract of both eyes Other and combined forms of senile cataract [facility] Need for vaccination- Primary Need for prophylactic vaccination and inoculation against unspecified single disease [facility] Diagnosis Homonymous hemianopsia, 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 Dry eye syndrome of both eyes [facility] Diagnosis Homonymous hemianopsia, 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 Dry eye syndrome of both eyes Primary open angle glaucoma (POAG) of both eyes, mild stage Meibomian gland dysfunction (MGD) of upper and lower lids of both eyes Combined forms of age-related cataract of both eyes Other and combined forms of senile cataract [facility] Diagnosis Vasculopathy- Primary Unspecified circulatory system disorder Peripheral arterial disease (HCC) Peripheral vascular disease, unspecified [facility] Diagnosis Preop exam for internal medicine- Primary Other specified pre-operative examination Ocular hypertension, bilateral Borderline glaucoma with ocular hypertension Optic cupping of both eyes Combined forms of age-related cataract of both eyes Other and combined forms of senile cataract Homonymous hemianopsia, right H/O ischemic left MCA stroke Transient ischemic attack (TIA), and cerebral infarction without residual deficits S/P carotid endarterectomy Other postprocedural status [facility] Diagnosis Status post glaucoma surgery- Primary Status post cataract extraction and insertion of intraocular lens of right eye Primary open angle glaucoma (POAG) of right eye, moderate stage Primary open angle glaucoma (POAG) of left eye, moderate stage Combined forms of age-related cataract of left eye Other and combined forms of senile cataract documented in this encounter [facility] Diagnosis Primary open angle glaucoma (POAG) of left eye, moderate stage- Primary Combined forms of age-related cataract of left eye Other and combined forms of senile cataract Primary open angle glaucoma (POAG) of right eye, moderate stage Status post glaucoma surgery Status post cataract extraction and insertion of intraocular lens of right eye 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, right Essential hypertension Unspecified essential hypertension Hypercholesteremia Pure hypercholesterolemia Primary open angle glaucoma (POAG) of left eye, moderate stage Combined form of age-related cataract, left eye documented in this [facility] Diagnosis Status post cataract extraction and insertion of intraocular lens of left eye- Primary Primary open angle glaucoma (POAG) of left eye, moderate stage Primary open angle glaucoma (POAG) of right eye, moderate stage Status post cataract extraction and insertion of intraocular lens of right eye [facility] Diagnosis Primary open angle glaucoma (POAG) of right eye, moderate stage- Primary Status post cataract extraction and insertion of intraocular lens of right eye Primary open angle glaucoma (POAG) of left eye, moderate stage Status post cataract extraction and insertion of intraocular lens of left eye [facility] Diagnosis Bilateral carotid artery stenosis- Primary Occlusion and stenosis of carotid artery without mention of cerebral infarction [facility] Diagnosis S/P carotid endarterectomy- Primary Other postprocedural status 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 H/O ischemic left MCA stroke Transient ischemic attack (TIA), and cerebral infarction without residual deficits Aneurysm of ophthalmic artery Cerebral aneurysm, nonruptured documented [facility] this [facility] Diagnosis Vasculopathy Unspecified circulatory system disorder [facility] Diagnosis Memory difficulties- Primary Memory loss Adenocarcinoma of prostate (HCC) Malignant neoplasm of prostate Recurrent depressive disorder, in remission (HCC) Subdural hematoma (HCC) Subdural hemorrhage Need for shingles vaccine Need for prophylactic vaccination and inoculation against other viral diseases Screening for colon cancer Special screening for malignant neoplasms, colon Encounter for immunization Need for other specified prophylactic vaccination against single bacterial disease Weight loss Loss of weight Vitamin D deficiency Unspecified vitamin D deficiency Encounter for screening for diabetes mellitus Screening for diabetes mellitus documented in this encounter [facility] Diagnosis Elevated alkaline phosphatase level- Primary Other nonspecific abnormal serum enzyme levels Weight loss Loss of weight [facility] this [facility] Diagnosis Weight loss- Primary Loss of weight Encounter for immunization Need for other specified prophylactic vaccination against single bacterial disease Elevated alkaline phosphatase level Other nonspecific abnormal serum enzyme levels Adenocarcinoma of prostate (HCC) Malignant neoplasm of prostate Memory difficulties Memory loss documented [facility] this encounter [facility] 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 documented in this encounter [facility]* Diagnosis Homonymous hemianopsia, right- Primary Primary open angle glaucoma (POAG) of right eye, moderate stage Primary open angle glaucoma (POAG) of left eye, moderate stage Status post cataract extraction and insertion of intraocular lens of right eye Status post cataract extraction and insertion of intraocular lens of left eye H/O ischemic left MCA stroke Transient ischemic attack (TIA), and cerebral infarction without residual deficits Aneurysm of ophthalmic artery Cerebral aneurysm, nonruptured Essential hypertension Unspecified essential hypertension Elevated alkaline phosphatase level Other nonspecific abnormal serum enzyme levels documented in this [facility]* Diagnosis Memory difficulties- Primary Memory loss documented in this [facility] Diagnosis Elevated alkaline phosphatase level Other nonspecific abnormal serum enzyme levels documented [facility] this [facility]* Diagnosis Primary open-angle glaucoma, left eye, moderate stage Combined forms of age-related cataract, left eye Essential (primary) hypertension Unspecified essential hypertension Peripheral vascular disease, unspecified (CMS/HCC) Peripheral vascular disease, unspecified Benign prostatic hyperplasia without lower urinary tract symptoms Personal history of transient ischemic attack (TIA), and cerebral infarction without residual deficits Anxiety disorder, unspecified 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, 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 Tobacco use documented in this encounter [facility] Work Phone: Evaluation note* Diagnosis 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 [facility] Outpatient Procedure (Routine) - Pending Review Specialty Diagnoses / Procedures Referred By Trent hancock Referred To Contact [facility] Diagnoses Bilateral carotid artery stenosis Procedures US CAROTID ARTERIES [facility] DUPLEX SCAN EXTRACRANIAL ART COMPL BI STUDY Rolan Howard MD [address] [place] [address] [facility] [address] [place] [address] Referral ID Status Reason Start Date Expiration Date Visits Requested Visits Authorized [id number] Pending Review Auto-Generat ed Referral 12/18/2021 12/18/2022 1 1 [facility] for referral (narrative)* Outpatient Procedure (Routine) - Closed Specialty Diagnoses / Procedures Referred By Trent hancock Referred To Contact [facility] Diagnoses Preop exam for internal medicine Procedures ECG COMPLETE ECG ROUTINE ECG W/LEAST 12 LDS W/I&R Kesha Boone APRN.WAX MACHINE OPERATOR [address] [place] [address] [facility] [address] [place] [address] Referral ID Status Reason Start Date Expiration Date V isits Requested Visits Authorized [id number] Closed Auto-Generate d Referral 08/23/2022 08/23/2023 1 1 [facility] for referral (narrative)* Outpatient Procedure (Routine) - Authorized Specialty Diagnoses / Procedures Referred By Contac t Referred To Contact [facility] Diagnoses Bilateral carotid artery stenosis Procedures US CAROTID ARTERIES DAVID V[facility] LAB DUPLEX SCAN EXTRACRANIAL ART COMPL BI STUDY Carlos A Kennedy MD [address] [place] [address] [address] Referral ID Status Reason Start Date Expiration Date Visits Requested Visits Authorized [id number] Authorized Auto-Generat ed Referral 01/21/2023 01/21/2024 1 1 [facility] for referral (narrative)* Diagnostic Procedure Only (Routine) - Authorized Specialty Diagnoses / Procedures [facility] Diagnoses Elevated alkaline phosphatase level Procedures US ABD RIGHT UPPER QUADRANT US ABDOMINAL REAL TIME W/IMAGE LIMITED Kesha Boone APRN.WAX MACHINE OPERATOR [address] [place] [address] [place] [address] Referral ID Status Reason Start Date Expiration Date Visits Requested Visits Authorized [id number] Authorized Auto-Generat ed Referral 04/25/2023 05/24/2024 1 1 [facility] for referral (narrative)* Diagnostic Procedure Only (Routine) - Closed Specialty Diagnoses / Procedures Referred By Contac t Referred To Contact [facility] Diagnoses Elevated alkaline phosphatase level Procedures US ABD RIGHT UPPER QUADRANT US ABDOMINAL REAL TIME W/IMAGE LIMITED Kesha Boone APRN.WAX MACHINE OPERATOR [address] [place] [address] [place] [id number] Referral ID Status Reason Start Date Expiration Date V isits Requested Visits Authorized [id number] Closed Auto-Generate d Referral 04/25/2023 05/24/2024 1 1 [facility] Summary Purpose Family History No Family History Records Found Mother Name Dates Details Family history of Medical hi story unknown(V49.89, Z78.9) Status:Active Father Name Dates Details Family history of Medical hi story unknown(V49.89, Z78.9) Status:Active Unknown Family Member Name Dates Details Medical history unknown: Mot her, Father Status:Active Unknown Family Member Name Dates Details Medical history unknown: Mot her, Father Status:Active Unknown Family Member Name Dates Details Medical history unknown: Mot her, Father Status:Active Unknown Family Member Name Dates Details Medical history unknown: Mot her, Father Status:Active Unknown Family Member Name Dates Details Medical history unknown: Mot her, Father Status:Active Unknown Family Member Name Dates Details Medical history unknown: Mot her, Father Status:Active Unknown Family Member Name Dates Details Medical history unknown: Mot her, Father Status:Active Unknown Family Member Name Dates Details Medical history unknown: Mot her, Father Status:Active Unknown Family Member Name Dates Details Medical history unknown: Mot her, Father Status:Active Unknown Family Member Name Dates Details Medical history unknown: Mot her, Father Status:Active Unknown Family Member Name Dates Details Medical history unknown: Mot her, Father Status:Active Advance Directives No Advanced Directives Records FoundDocuments on File Type Date Recorded 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 Advance Directives and Livin g Will 12/27/2019 10:16 AM Documents on File Type Date Recorded 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 Advance Directive(s) 03/23/2020 3:18 PM Advance Directive(s) 03/20/2020 11:18 AM Advance Directive(s) 01/25/2019 8:04 PM Documents on File Type Date Recorded 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 Advance Directive(s) 03/23/2020 3:18 PM Advance Directive(s) 03/20/2020 11:18 AM Advance Directive(s) 01/25/2019 8:04 PM Hospital Course Note HNO ID: [id number] Author: Allison cohen (Kimi) Yosvany Service: Critical Care Author Type: Resident Type: Discharge Summary Filed: 01/26/2019 12:55 PM Note Text: Attestation signed by Jr Aguirre at 01/26/2019 9:06 PM As above Jr Aguirre MD DISCHARGE NOTE (Patient Admitted Less than 48 Hours) SERVICE DATE: 01/26/2019 SERVICE TIME: 12:55 PM ADMISSION DATE: 01/25/2019 DISCHARGE DISPOSITION: Home/Self Care DIET: Regular ACTIVITY AFTER DISCHARGE: Resume pre-hospital activity FOLLOW UP CARE REQUIRED: Dr. Crespo DISCHARGE MEDICATIONS (ONLY ACTIVATE WHEN READY TO DISCHARGE): Current Discharge Medication List START taking these medications levETIRAcetam (KEPPRA) 1,000 mg Take 1,000 mg by mouth twice daily. Qty: 14 tablet Refills: 0 CONTINUE these medications which have NOT CHANGED dextromethorphan (DELSYM) 60 mg Take 60 mg (more content not included)... Discharge Instructions * Attachments The following attachments cannot be sent through Care Everywhere. * Edema: Leg and Ankle (Bangladeshi) documented in this encounter* Attachments The following attachments cannot be sent through Care Everywhere. * Edema: Leg and Ankle (Bangladeshi) documented in this encounter Assessments Diagnosis Peripheral edema Edema Diagnosis Mild peripheral edema Chief Complaint 6 MO F/U w/PSAPer Nurse Medications Administered Section Active Administered Medications - up to 3 most recent administrations Medication Order MAR Action Action Date Dose Rate Site PHENYLephrine 2.5 % 1 Drop (AK-DILATE, MARCELLA-SYNEPHRINE) 1 Drop, BOTH EYES, DIRECTED, Starting on Fri05/15/22 at 1030, Until Fri05/15/22 at 2229, Administer for dilation PROTECT FROM LIGHT Given 05/15/2022 10:13 AM EDT 1 Drop proparacaine 0.5 % 1 Drop (ALCAINE) 1 Drop, BOTH EYES, DIRECTED, Starting on Fri05/15/22 at 1030, Until Fri05/15/22 at 2229, Administer for pneumo tonometry, tonopen tonometry, or pachymetry. In the event of a proparacaine shortage, administer tetracaine 0.5% ophthalmic drops 1 drop in the left eye as directed for pneumo tonometry, tonopen tonometry, or pachymetry Given 05/15/2022 10:13 AM EDT 1 Drop tropicamide 1 % 1 Drop (MYDRIACYL) 1 Drop, BOTH EYES, DIRECTED, Starting on Fri05/15/22 at 1030, Until Fri05/15/22 at 2229, Administer for dilation Given 05/15/2022 10:13 AM EDT 1 Drop Inactive Administered Medications - up to 3 most recent administrations Medication Order MAR Action Action Date Dose Rate Site proparacaine 0.5 % 1 Drop (ALCAINE) 1 Drop, BOTH EYES, DIRECTED, Starting on Fri09/30/22 at 1100, Until Fri09/30/22 at 2259, Administer for pneumo tonometry, tonopen tonometry, or pachymetry. In the event of a proparacaine shortage, administer tetracaine 0.5% ophthalmic drops 1 drop in the left eye as directed for pneumo tonometry, tonopen tonometry, or pachymetry Given 09/30/2022 11:00 AM EST 1 Drop Inactive Administered Medications - up to 3 most recent administrations Medication Order MAR Action Action Date Dose Rate Site PHENYLephrine 2.5 % 1 Drop (AK-DILATE, MARCELLA-SYNEPHRINE) 1 Drop, BOTH EYES, DIRECTED, Starting on Fri04/29/23 at 0930, Until Fri04/29/23 at 2129, Administer for dilation PROTECT FROM LIGHT Given 04/29/2023 9:30 AM EDT 1 Drop proparacaine 0.5 % 1 Drop (ALCAINE) 1 Drop, BOTH EYES, DIRECTED, Starting on Fri04/29/23 at 0930, Until Fri04/29/23 at 2128, Administer for pneumo tonometry, tonopen tonometry, or pachymetry. In the event of a proparacaine shortage, administer tetracaine 0.5% ophthalmic drops 1 drop in the left eye as directed for pneumo tonometry, tonopen tonometry, or pachymetry Given 04/29/2023 9:30 AM EDT 1 Drop tropicamide 1 % 1 Drop (MYDRIACYL) 1 Drop, BOTH EYES, DIRECTED, Starting on Fri04/29/23 at 0930, Until Fri04/29/23 at 2128, Administer for dilation Given 04/29/2023 9:30 AM EDT 1 Drop Reason for Referral Specialty Diagnoses / Procedures Referred By Trent t Referred To Contact CT IMAGING Diagnoses Vasculopathy Procedures CTA NECK W IVCON CT ANGIOGRAPHY NECK W/CONTRAST/NONCONTRAST Rolan Howard MD [address] [place] [address] Ct Imaging Referral ID Status Reason Start Date Expiration Date Visits Requested Visits Authorized [id number] Pending Review Auto-Generat ed Referral 2 08/18/2023 1 1 Specialty Diagnoses / Procedures Referred By Trent t Referred To Contact CT IMAGING Diagnoses Vasculopathy Procedures CTA HEAD WO/W IVCON CT ANGIOGRAPHY HEAD W/CONTRAST/NONCONTRAST Rolan Howard MD [address] [place] [address] Ct Imaging Referral ID Status Reason Start Date Expiration Date Visits Requested Visits Authorized [id number] Pending Review Auto-Generat ed Referral 2 08/18/2023 1 1 Specialty Diagnoses / Procedures Referred By Harleyac t Referred To Contact [facility] Diagnoses Peripheral arterial disease (HCC) Procedures PVR LEG [facility] NON-INVASIVE PHYSIOLOGIC STUDY EXTREMITY 3 LEVLS Rolan Howard MD [address] [place] [address] [facility] [address] [place] [address] Referral ID Status Reason Start Date Expiration Date Visits Requested Visits Authorized [id number] Authorized Auto-Generat ed Referral 07/19/2023 1 1 Specialty Diagnoses / Procedures Referred By Contac t Referred To Contact CT IMAGING Diagnoses Vasculopathy Procedures CTA NECK W IVCON CT ANGIOGRAPHY NECK W/CONTRAST/NONCONTRAST Rolan Howard MD [address] [place] [address] Ct Imaging Referral ID Status Reason Start Date Expiration Date V isits Requested Visits Authorized [id number] Closed Auto-Generate d Referral 07/19/2022 08/18/2023 1 1 Specialty Diagnoses / Procedures Referred By Contac t Referred To Contact CT IMAGING Diagnoses Vasculopathy Procedures CTA HEAD WO/W IVCON CT ANGIOGRAPHY HEAD W/CONTRAST/NONCONTRAST Rolan Howard MD [address] [place] [address] Ct Imaging Referral ID Status Reason Start Date Expiration Date V isits Requested Visits Authorized [id number] Closed Auto-Generate d Referral 07/19/2022 08/18/2023 1 1 Specialty Diagnoses / Procedures Referred By Contac t Referred To Contact Endocrinology Diagnoses Weight loss Elevated alkaline phosphatase level Procedures CONSULT TO ENDOCRINOLOGY OFFICE/OUTPATIENT NEW HIGH MDM 60-74 MINUTES Kesha Boone, [employer] [address] [place] [address] Referral ID Status Reason Start Date Expiration Date Visits Requested Visits Authorized [id number] Authorized PCP Requested Referral 03/27/2023 03/26/2024 1 1 Specialty Diagnoses / Procedures Referred By Contac t Referred To Contact Endocrinology Diagnoses Paget's bone disease Kesha Boone, [facility] [address] [place] [address] Frank Cano, D[employer] INTERN [address] [address] Referral ID Status Reason Start Date Expiration Date Visits Requested Visits Authorized [id number] Pending Review Specialty Services Required/Pat ient's Best Interest 04/29/2023 04/28/2024 1 1 Specialty Diagnoses / Procedures Referred By Trent hancock Referred To Contact Gerontology / GERIATRICS Diagnoses Memory difficulties Procedures CONSULT TO GERIATRICS OFFICE/OUTPATIENT [facility] MDM 60-74 MINUTES Kesha Boone APRN.[employer] [address] [place] [address] [address] [address] [place] [address] Referral ID Status Reason Start Date Expiration Date V isits Requested Visits Authorized [id number] Closed PCP Requested Referral 05/02/2023 05/01/2024 1 1 Additional Source Comments (unrecognized sect ion and content) No Status Records FoundNo Status Records FoundNo Status Records FoundNo Status Records FoundNo Status Records FoundNo Status Records FoundNo Status Records FoundNo Status Records FoundNo Status Records FoundNo Status Records FoundNo Status Records Found INFORMATION SOURCE (unrecogn ized section and content) DATE CREATED AUTHOR AUTHOR'S ORGANIZ ATION 01/01/[address] [facility] DATE CREATED AUTHOR AUTHOR'S ORGANIZ ATION 01/05/2020 [facility] DATE CREATED AUTHOR AUTHOR'S ORGANIZ ATION 02/21/2020 [facility] DATE CREATED AUTHOR AUTHOR'S ORGANIZ ATION 02/25/2020 [facility] DATE CREATED AUTHOR AUTHOR'S ORGANIZ ATION 01/11/2023 [facility] DATE CREATED AUTHOR AUTHOR'S ORGANIZ ATION 04/03/2023 [facility] DATE CREATED AUTHOR AUTHOR'S ORGANIZ ATION 04/12/2023 [facility] DATE CREATED AUTHOR AUTHOR'S ORGANIZ ATION 07/20/2023 [facility] DATE CREATED AUTHOR AUTHOR'S ORGANIZ ATION 07/23/2023 [facility] DATE CREATED AUTHOR AUTHOR'S ORGANIZ ATION 08/30/2023 [facility] Reason for Visit (unrecogniz ed section and content) Reason Comments Foot Swelling Ankle swelling Pt presents with rig ht foot and ankle swelling for 2-3 days. States both were swollen but he soaked feet in epsom salts and the left decreased but the right did not. Reason Comments Results, Lab FOBT Reason Comments Homonymous hemianopsia Reason Comments Established Patient Reason Comments Glaucoma Follow Up Pressure check Reason Onset Date Comments Population Health Navigation Outreach 01/14/2022 [place] Attribution Reason Comments Imm/Inj Reason Comments Dry Eye Syndrome Follow Up [place]land Dysfunction Bilateral Homonymous Hemianopsia Optic Cupping Bilateral Cataract Follow Up Bilateral Reason Comments Dry Eye Syndrome Follow Up Bilateral [place] Dysfunction Bilateral Homonymous field defect Homonymous Hemia nopsia Right Optic Cupping Bilateral Reason Comments Bleeding/Bruising Reason Comments Results Reason Comments Pre-Op Exam Reason Comments Follow Up For Surgery Of Eye S/P Canalop lasty with the Omni surgical system, and Hydrus micro-stent - Right eye done on 09/26/22 Reason Onset Date Comments Refill Request 10/25/2022 Reason Comments Blurred Vision Left Eye Difficulty Reading Left Eye Glare Left eye Primary Open Angle Glaucoma Follow Up Reason Comments Follow Up For Surgery Of Eye Reason Comments Post-op Cataract OS Status Post Cataract Surgery with Monofocal Intraocular lens Implant, Canaloplasty with the Omni surgical system, and Hydrus Left Eye (11/07/2022) Reason Onset Date Comments Refill Request 11/18/2022 Reason Comments Appointment Reason Onset Date Comments Population Health Navigation Outreach 01/21/2023 [employer] [facility] Reason Comments Radiology CT Specialty Diagnoses / Procedures Referred By Trent t Referred To Contact CT IMAGING Diagnoses Vasculopathy Procedures CTA NECK W IVCON CT ANGIOGRAPHY NECK W/CONTRAST/NONCONTRAST Rolan Howard MD [address] [place] [address] Ct Imaging Referral ID Status Reason Start Date Expiration Date V isits Requested Visits Authorized [id number] Closed Auto-Generate d Referral 07/19/2022 08/18/2023 1 1 Reason Comments Follow Up Reason Comments Results Reason Comments Follow Up Reason Comments Primary Open Angle Glaucoma Follow Up Post-op (Ophthalmology) Both Eyes Status Post Cataract Surgery with Monofocal Intraocular lens Implant, Canaloplasty with the Omni surgical system, and Hydrus Right Eye (09/26/2022)Status Post Cataract Surgery with Monofocal Intraocular lens Implant, Canaloplasty with the Omni surgical system, and Hydrus Left Eye (11/07/2022) Reason Comments Radiology US Specialty Diagnoses / Procedures Referred By Contac t Referred To Contact US IMAGING Diagnoses Elevated alkaline phosphatase level Procedures US ABD RIGHT UPPER QUADRANT US ABDOMINAL REAL TIME W/IMAGE LIMITED Paolo Kesha, [employer] [address] [place] [address] [place] [id number] Referral ID Status Reason Start Date Expiration Date V isits Requested Visits Authorized [id number] Closed Auto-Generate d Referral 04/25/2023 05/24/2024 1 1 Reason Comments Question Reason Comments Other Primary open-angle g laucoma, left eye, moderate stage , Combined forms of age-related cataract, left eye Reason Comments Pagets Disease Specialty Diagnoses / Procedures Referred By Trent hancock Referred To Contact Endocrinology Diagnoses Paget's bone disease Boone Kesha, [facility] [address] [place] [address] Frank Cano, [facility] [address] [id number] Referral ID Status Reason Start Date Expiration Date Visits Requested Visits Authorized [id number] Pending Review Specialty Services Required/Pat ient's Best Interest 04/29/2023 04/28/2024 1 1 Isidra Becker RN - 12/27/2019 10:27 AM Iisdra Jones RN - 12/27/2019 9:44 AM Arthur Parra MD - 12/27/2019 9:38 AM Isidra Jones RN - 12/27/2019 9:34 AM EDT ED Notes (unrecognized secti on and content) DISCHARGE PAPERWORK RECEIVED, REGISTRATION CARTSIDE. XRAY ROSALINDA, PLAN OF CARE REVIEWED WITH PATIENT, DENIES CURRENT NEEDS, CALL LIGHT IN REACH. [facility] ED Attending Note: NAME: Denny Gomez 64 y.o. CSN: [id number] PCP: No primary care provider on file. History: Chief Complaint: Leg Swelling HPI: The history was obtained from the patient. Denny is a 64 y.o. male who presents with a chief complaint of Leg Swelling. The patient is a 64-year-old male with a history of hypertension long-term tobacco use who presents from home with complaints of lower extremity edema. He notices this morning upon awakening. He denies any leg pain chest pain or shortness of breath. He states he takes a diuretic with his blood pressure medications and he believes he has been taking it as prescribed. He denies any history of congestive heart failure. He denies any calf symptoms. He denies any pleuritic symptoms. PMHx: Past Medical History: Diagnosis Date Anxiety Hyperlipidemia Hypertension PMSx: Past Surgical History: Procedure Laterality Date CAROTID ARTERY ANGIOPLASTY FAM. Hx: History reviewed. No pertinent family history. SOC. Hx: Social History Socioeconomic History Marital status: Single Spouse name: Not on file Number of children: Not on file Years of education: Not on file Highest education level: Not on file Occupational History Not on file Social Needs Financial resource strain: Not on file Food insecurity Worry: Not on file Inability: Not on file Transportation needs Medical: Not on file Non-medical: Not on file Tobacco Use Smoking status: Current Some Day Smoker Types: Cigarettes Smokeless tobacco: Never Used Substance and Sexual Activity Alcohol use: Not Currently Frequency: Never Comment: OCCASIONAL Drug use: Never Sexual activity: Not on file Lifestyle Physical activity Days per week: Not on file Minutes per session: Not on file Stress: Not on file Relationships Social connections Talks on phone: Not on file Gets together: Not on file Attends mormonism service: Not on file Active member of club or organization: Not on file Attends meetings of clubs or organizations: Not on file Relationship status: Not on file Other Topics Concern Not on file Social History Narrative Not on file MEDs: No current outpatient medications on file prior to encounter. ALL: No Known Allergies ROS: Positives and pertinent negatives as per HPI. All other systems were reviewed and are negative. Physical Exam: Patient Vitals for the past 24 hrs: BP Temp Pulse Resp SpO2 Height Weight 12/27/19 0936 (!) 159/94 99 F (37.2 C) 75 (!) 20 98 % 5' 8 74.8 kg (165 lb) Physical Exam Constitutional: Appearance: Normal appearance. HENT: Head: Normocephalic. Nose: Nose normal. Mouth/Throat: Mouth: Mucous membranes are moist. Eyes: Extraocular Movements: Extraocular movements intact. Pupils: Pupils are equal, round, and reactive to light. Neck: Musculoskeletal: Normal range of motion. Cardiovascular: Rate and Rhythm: Normal rate and regular rhythm. Pulmonary: Effort: Pulmonary effort is normal. Breath sounds: Normal breath sounds. Abdominal: General: Abdomen is flat. Bowel sounds are normal. Palpations: Abdomen is soft. Musculoskeletal: Normal range of motion. Comments: 1+ lower extremity edema bilaterally. Skin: General: Skin is warm and dry. Neurological: General: No focal deficit present. Mental Status: He is alert and oriented to person, place, and time. Laboratory & Radiological Imaging (if done): Labs Reviewed CHEM 7 - Abnormal; Notable for the following components: Result Value Chloride 112 (*) All other components within normal limits Narrative: The eGFR should be used for monitoring renal function only and not for medication dosing. CBC WITH AUTO DIFFERENTIAL - Abnormal; Notable for the following components: RBC 4.49 (*) MCV 100.7 (*) All other components within normal limits NT PRO BNP - Normal Narrative: Pride Study Cut-offs Rule In: < /= 50 Years >450 pg/mL 51 Years - 75 Years >900 pg/mL 76 Years - 99 Years >1800 pg/mL Rule Out: All patients <300 pg/mL CBC AND DIFFERENTIAL Narrative: The following orders were created for panel order CBC w/ Diff. Procedure Abnormality Status --------- ------ CBC Auto Differential[[id number]] Abnormal Final result Please view results for these tests on the individual orders. TROPONIN XR Chest 1 View Final Result 1. Changes consistent with COPD. 2. No focal infiltrates. Workstation ID: [id number] Procedures: Procedures ED Course / Medical Decision Making: Workup of the patient shows no acute worrisome abnormalities with respect to lab testing and chest x-ray. The patient is reassured, and will be discharged home with outpatient follow-up. . Clinical Impression: 1. Peripheral edema Disposition: Patient is being discharged to home Arthur Carcamo MD [facility] Emergency Department (Please note that portions of this note have been completed with a voice recognition software. Efforts were made to correct any errors, but occasionally words are mis-transcribed.) Arthur Carcamo MD 12/27/[address] CARCAMO TO BEDSIDE ON PATIENT ARRIVAL TO ROOM, GOWN AND MONITOR PLACED. BLE SWELLING ONSET YESTERDAY AND WORSENING TODAY, SLIGHT NON-PITTING EDEMA NOTED TO BILATERAL ANKLES, DENIES SHORTNESS OF BREATH AND CHEST PAIN Bed: 18 Expected date: Expected time: Means of arrival: Comments: Next pt documented in this encounter Source Comments (unrecognize d section and content) In the event this informatio n is protected by the Federal Confidentiality of Alcohol and Drug Abuse Patient Records regulations: The Federal rules restrict any use of the information to criminally investigate or prosecute any alcohol or drug abuse patient.[facility], IncIn the event this information is protected by the Federal Confidentiality of Alcohol and Drug Abuse Patient Records regulations: The Federal rules restrict any use of the information to criminally investigate or prosecute any alcohol or drug abuse patient.[facility], IncIn the event this information is protected by the Federal Confidentiality of Alcohol and Drug Abuse Patient Records regulations: The Federal rules restrict any use of the information to criminally investigate or prosecute any alcohol or drug abuse patient.[facility], IncIn the event this information is protected by the Federal Confidentiality of Alcohol and Drug Abuse Patient Records regulations: The Federal rules restrict any use of the information to criminally investigate or prosecute any alcohol or drug abuse patient.[facility], IncIn the event this information is protected by the Federal Confidentiality of Alcohol and Drug Abuse Patient Records regulations: The Federal rules restrict any use of the information to criminally investigate or prosecute any alcohol or drug abuse patient.[facility], IncIn the event this information is protected by the Federal Confidentiality of Alcohol and Drug Abuse Patient Records regulations: The Federal rules restrict any use of the information to criminally investigate or prosecute any alcohol or drug abuse patient.[facility], IncIn the event this information is protected by the Federal Confidentiality of Alcohol and Drug Abuse Patient Records regulations: The Federal rules restrict any use of the information to criminally investigate or prosecute any alcohol or drug abuse patient.[facility], IncIn the event this information is protected by the Federal Confidentiality of Alcohol and Drug Abuse Patient Records regulations: The Federal rules restrict any use of the information to criminally investigate or prosecute any alcohol or drug abuse patient.[facility], IncIn the event this information is protected by the Federal Confidentiality of Alcohol and Drug Abuse Patient Records regulations: The Federal rules restrict any use of the information to criminally investigate or prosecute any alcohol or drug abuse patient.[facility], IncIn the event this information is protected by the Federal Confidentiality of Alcohol and Drug Abuse Patient Records regulations: The Federal rules restrict any use of the information to criminally investigate or prosecute any alcohol or drug abuse patient.[facility], IncIn the event this information is protected by the Federal Confidentiality of Alcohol and Drug Abuse Patient Records regulations: The Federal rules restrict any use of the information to criminally investigate or prosecute any alcohol or drug abuse patient.[facility], IncIn the event this information is protected by the Federal Confidentiality of Alcohol and Drug Abuse Patient Records regulations: The Federal rules restrict any use of the information to criminally investigate or prosecute any alcohol or drug abuse patient.[facility], IncIn the event this information is protected by the Federal Confidentiality of Alcohol and Drug Abuse Patient Records regulations: The Federal rules restrict any use of the information to criminally investigate or prosecute any alcohol or drug abuse patient.[facility], IncIn the event this information is protected by the Federal Confidentiality of Alcohol and Drug Abuse Patient Records regulations: The Federal rules restrict any use of the information to criminally investigate or prosecute any alcohol or drug abuse patient.[facility], IncIn the event this information is protected by the Federal Confidentiality of Alcohol and Drug Abuse Patient Records regulations: The Federal rules restrict any use of the information to criminally investigate or prosecute any alcohol or drug abuse patient.[facility], IncIn the event this information is protected by the Federal Confidentiality of Alcohol and Drug Abuse Patient Records regulations: The Federal rules restrict any use of the information to criminally investigate or prosecute any alcohol or drug abuse patient.[facility], IncIn the event this information is protected by the Federal Confidentiality of Alcohol and Drug Abuse Patient Records regulations: The Federal rules restrict any use of the information to criminally investigate or prosecute any alcohol or drug abuse patient.[facility], IncIn the event this information is protected by the Federal Confidentiality of Alcohol and Drug Abuse Patient Records regulations: The Federal rules restrict any use of the information to criminally investigate or prosecute any alcohol or drug abuse patient.[facility], IncIn the event this information is protected by the Federal Confidentiality of Alcohol and Drug Abuse Patient Records regulations: The Federal rules restrict any use of the information to criminally investigate or prosecute any alcohol or drug abuse patient.[facility], IncIn the event this information is protected by the Federal Confidentiality of Alcohol and Drug Abuse Patient Records regulations: The Federal rules restrict any use of the information to criminally investigate or prosecute any alcohol or drug abuse patient.[facility], IncIn the event this information is protected by the Federal Confidentiality of Alcohol and Drug Abuse Patient Records regulations: The Federal rules restrict any use of the information to criminally investigate or prosecute any alcohol or drug abuse patient.[facility], IncIn the event this information is protected by the Federal Confidentiality of Alcohol and Drug Abuse Patient Records regulations: The Federal rules restrict any use of the information to criminally investigate or prosecute any alcohol or drug abuse patient.[facility], IncIn the event this information is protected by the Federal Confidentiality of Alcohol and Drug Abuse Patient Records regulations: The Federal rules restrict any use of the information to criminally investigate or prosecute any alcohol or drug abuse patient.[facility], IncIn the event this information is protected by the Federal Confidentiality of Alcohol and Drug Abuse Patient Records regulations: The Federal rules restrict any use of the information to criminally investigate or prosecute any alcohol or drug abuse patient.[facility], IncIn the event this information is protected by the Federal Confidentiality of Alcohol and Drug Abuse Patient Records regulations: The Federal rules restrict any use of the information to criminally investigate or prosecute any alcohol or drug abuse patient.[facility], IncIn the event this information is protected by the Federal Confidentiality of Alcohol and Drug Abuse Patient Records regulations: The Federal rules restrict any use of the information to criminally investigate or prosecute any alcohol or drug abuse patient.[facility], IncIn the event this information is protected by the Federal Confidentiality of Alcohol and Drug Abuse Patient Records regulations: The Federal rules restrict any use of the information to criminally investigate or prosecute any alcohol or drug abuse patient.[facility], IncIn the event this information is protected by the Federal Confidentiality of Alcohol and Drug Abuse Patient Records regulations: The Federal rules restrict any use of the information to criminally investigate or prosecute any alcohol or drug abuse patient.[facility], IncIn the event this information is protected by the Federal Confidentiality of Alcohol and Drug Abuse Patient Records regulations: The Federal rules restrict any use of the information to criminally investigate or prosecute any alcohol or drug abuse patient.[facility], IncIn the event this information is protected by the Federal Confidentiality of Alcohol and Drug Abuse Patient Records regulations: The Federal rules restrict any use of the information to criminally investigate or prosecute any alcohol or drug abuse patient.[facility], IncIn the event this information is protected by the Federal Confidentiality of Alcohol and Drug Abuse Patient Records regulations: The Federal rules restrict any use of the information to criminally investigate or prosecute any alcohol or drug abuse patient.[facility], IncIn the event this information is protected by the Federal Confidentiality of Alcohol and Drug Abuse Patient Records regulations: The Federal rules restrict any use of the information to criminally investigate or prosecute any alcohol or drug abuse patient.[facility] Care Teams (unrecognized sec tion and content) Studio Musician Relationship Specialty Start Date End Date Malu Rowe MD [address] [place], [place] [id number] PCP - General Internal Medicine 07/12/16 Weston Crespo MD [address] [facility] [place] [phone] Consulting Neurosurgery 01/26/19 Studio Musician Relationship Specialty Start Date End Date Malu Rowe MD [address] [facility] [place] [address] PCP - General Internal Medicine 07/12/16 Weston Crespo MD [address] [facility] [place] [address] Consulting Neurosurgery 01/26/19 Studio Musician Relationship Specialty Start Date End Date Malu Rowe MD [address] [facility] [place] [address] PCP - General Internal Medicine 07/12/16 Weston Crespo MD [address] [facility] [place] [address] Consulting Neurosurgery 01/26/19 Studio Musician Relationship Specialty Start Date End Date Malu Rowe MD [address] [facility] [place] [address] PCP - General Internal Medicine 07/12/16 Weston Crespo MD [address] [facility] [place] [address] Consulting Neurosurgery 01/26/19 Studio Musician Relationship Specialty Start Date End Date Malu Rowe MD [address] [facility] [place] [address] PCP - General Internal Medicine 07/12/16 Weston Crespo MD [address] [facility] [place] [address] Consulting Neurosurgery 01/26/19 Studio Musician Relationship Specialty Start Date End Date Malu Rowe MD [address] [facility] [place] [address] PCP - General Internal Medicine 07/12/16 Weston Crespo MD [address] [facility] [place] [address] Consulting Neurosurgery 01/26/19 Studio Musician Relationship Specialty Start Date End Date Malu Rowe MD [address] [facility] [place] [address] PCP - General Internal Medicine 07/12/16 Weston Crespo MD [address] [facility] [place] [address] Consulting Neurosurgery 01/26/19 Studio Musician Relationship Specialty Start Date End Date Malu Rowe MD [address] [facility] [place] [address] PCP - General Internal Medicine 07/12/16 Weston Crespo MD [address] [facility] [place] [address] Consulting Neurosurgery 01/26/19 Studio Musician Relationship Specialty Start Date End Date Malu Rowe MD [address] [facility] [place] [address] PCP - General Internal Medicine 07/12/16 Weston Crespo MD [address] [facility] [place] [address] Consulting Neurosurgery 01/26/19 Studio Musician Relationship Specialty Start Date End Date Malu Rowe MD [address] [facility] [place] [address] PCP - General Internal Medicine 07/12/16 Weston Crespo MD [address] [facility] [address] Consulting Neurosurgery 01/26/19 Studio Musician Relationship Specialty Start Date End Date Kesha Boone, BOILER SETTER.WAX MACHINE OPERATOR [address] [facility] [place] [address] PCP - General Internal Medicine 08/21/22 Weston Crespo MD [address] [facility] [place] [address] Consulting Neurosurgery 01/26/19 Studio Musician Relationship Specialty Start Date End Date Kesha Boone, BOILER SETTER.WAX MACHINE OPERATOR [address] [facility] [place] [address] PCP - General Internal Medicine 08/21/22 Weston Crespo MD [address] [facility] [place] [address] Consulting Neurosurgery 01/26/19 Studio Musician Relationship Specialty Start Date End Date Kesha Boone, BOILER SETTER.WAX MACHINE OPERATOR [address] [facility] [place] [address] PCP - General Internal Medicine 08/21/22 Weston Crespo MD [address] [facility] [place] [address] Consulting Neurosurgery 01/26/19 Studio Musician Relationship Specialty Start Date End Date Kesha Boone, BOILER SETTER.WAX MACHINE OPERATOR [address] [place] [address] PCP - General Internal Medicine 08/21/22 Weston Crespo MD [address] [facility] [place] [address] Consulting Neurosurgery 01/26/19 Studio Musician Relationship Specialty Start Date End Date Kesha Boone, BOILER SETTER.WAX MACHINE OPERATOR [address] [facility] [place] [address] PCP - General Internal Medicine 08/21/22 Weston Crespo MD [address] [facility] [place] [address] Consulting Neurosurgery 01/26/19 Studio Musician Relationship Specialty Start Date End Date Kesha Boone, BOILER SETTER.WAX MACHINE OPERATOR [address] [facility] [place] [address] PCP - General Internal Medicine 08/21/22 Weston Crespo MD [address] [place] [address] Consulting Neurosurgery 01/26/19 Studio Musician Relationship Specialty Start Date End Date Kesha Boone, BOILER SETTER.WAX MACHINE OPERATOR [address] [facility] [place] [address] PCP - General Internal Medicine 08/21/22 Weston Crespo MD [address] [facility] [place] [address] Consulting Neurosurgery 01/26/19 Studio Musician Relationship Specialty Start Date End Date Kesha Boone, BOILER SETTER.WAX MACHINE OPERATOR [address] [facility] [place] [address] PCP - General Internal Medicine 08/21/22 Weston Crespo MD [address] [facility] [place] [address] Consulting Neurosurgery 01/26/19 Studio Musician Relationship Specialty Start Date End Date Kesha Boone, BOILER SETTER.WAX MACHINE OPERATOR [address] [facility] [place] [address] PCP - General Internal Medicine 08/21/22 Weston Crespo MD [address] [facility] [place] [phone] Consulting Neurosurgery 01/26/19 Studio Musician Relationship Specialty Start Date End Date Kesha Boone, BOILER SETTER.WAX MACHINE OPERATOR [address] [place], [place] [phone] PCP - General Internal Medicine 08/21/22 Weston Crespo MD [address] [facility] [place] [phone] Consulting Neurosurgery 01/26/19 Studio Musician Relationship Specialty Start Date End Date Kesha Boone, BOILER SETTER.WAX MACHINE OPERATOR [address] [place] [address] PCP - General Internal Medicine 08/21/22 Weston Crespo MD [address] [facility] [place] [phone] Consulting Neurosurgery 01/26/19 Studio Musician Relationship Specialty Start Date End Date Kesha Boone, BOILER SETTER.WAX MACHINE OPERATOR [address] [place] [address] PCP - General Internal Medicine 08/21/22 Weston Crespo MD [address] [facility] [place] [phone] Consulting Neurosurgery 01/26/19 Studio Musician Relationship Specialty Start Date End Date Kesha Boone, BOILER SETTER.WAX MACHINE OPERATOR [address] [place], [place] [address]173 [phone] PCP - General Internal Medicine 08/21/22 Weston Crespo MD [address] [facility] [place] [phone] Consulting Neurosurgery 01/26/19 Studio Musician Relationship Specialty Start Date End Date Kesha Boone, BOILER SETTER.WAX MACHINE OPERATOR [address] [place], [place] [address] PCP - General Internal Medicine 08/21/22 Weston Crespo MD [address] [facility] [place] [phone] Consulting Neurosurgery 01/26/19 Studio Musician Relationship Specialty Start Date End Date Kesha Boone, BOILER SETTER.WAX MACHINE OPERATOR [address] [place] [address] PCP - General Internal Medicine 08/21/22 Weston Crespo MD [address] [place], [place] [address] [phone] Consulting Neurosurgery 01/26/19 Studio Musician Relationship Specialty Start Date End Date Malu Rowe MD [address] [place], [place] [phone] PCP - General Internal Medicine 12/27/19 Studio Musician Relationship Specialty Start Date End Date Kesha Boone, BOILER SETTER.WAX MACHINE OPERATOR [address] [place] [address] PCP - General Internal Medicine 08/21/22 Weston Crespo MD [address] [place] [phone] Consulting Neurosurgery 01/26/19 Studio Musician Relationship Specialty Start Date End Date Malu Rowe MD [address] [facility] [place], [place] [address] PCP - General Internal Medicine 05/02/23 Weston Crespo MD [address] [facility] [place] [phone] Consulting Neurosurgery 01/26/19 Studio Musician Relationship Specialty Start Date End Date Kesha Boone, BOILER SETTER.WAX MACHINE OPERATOR [address] [place], [place] [address] PCP - General Internal Medicine 08/21/22 05/01/23 Weston Crespo MD [address] [facility] [place] [phone] Consulting Neurosurgery 01/26/19 Studio Musician Relationship Specialty Start Date End Date Malu Rowe MD [address] [place], [place] [address] PCP - General Internal Medicine 05/02/23 Weston Crespo MD [address] [facility] [place] [phone] Consulting Neurosurgery 01/26/19 Studio Musician Relationship Specialty Start Date End Date Malu Rowe MD [address] [place], [place] [address] PCP - General Internal Medicine 12/27/19 FOR RECORDS PERTAINING TO PATIENTS WHO ARE OR HAVE BEEN ENROLLED IN A CHEMICAL DEPENDENCY/SUBSTANCEABUSE PROGRAM, SOME INFORMATION MAY BE OMITTED. This clinical summary was aggregated from multiple sources. Caution should be exercised in using it in the provision of clinical care. This summary normalizes information from multiple sources, and as a consequence, information in this document may materially change the coding, format and clinical context of patient data. In addition, data may be omitted in some cases. CLINICAL DECISIONS SHOULD BE BASED ON THE PRIMARY CLINICAL RECORDS. [facility]. provides no warranty or guarantee of the accuracy or completeness of information in this document.
[2023-09-17 11:47] LABS: PSA,Total- Diagnostic 1.07 ng/mL (0.0-4.0)
== END | disposition home or self-care (01) ==
LOC: LAB 10:23
PROVIDERS: PCP Internal Medicine; Referring Provider Urology; Visit Provider Urology
DX: R35.1 Nocturia (principal)
CPT/HCPCS: 36415; 84153

== ENCOUNTER → 2024-12-30 | Outpatient (CLI) | payer MEDICARE, SELFPAY ==
[2024-12-30 13:38] LABS: PSA,Total- Diagnostic 0.89 ng/mL (0.00-4.00)
== END | disposition home or self-care (01) ==
LOC: LAB 12:34
PROVIDERS: PCP Internal Medicine; Referring Provider Urology; Visit Provider Urology
DX: R35.1 Nocturia (principal)
CPT/HCPCS: 36415; 84153

== ENCOUNTER 2025-03-07 12:00 | Emergency (ER) | payer MEDICARE, SELFPAY ==
[2025-03-07 12:00] VITALS: BP 107/62; PULSE 66; RESP 16; TEMP 36.8; O2SAT 99; BMI 22.7
[2025-03-07] MEDS: 0.9% Normal Saline (1000mL) 1,000 ML 1000 ML IV (13:29)
[2025-03-07 13:45] LABS: Hematocrit 41.4 % (40-54); Hemoglobin 14.0 g/dL (13.0-16.5); Immature Granulocytes Count 0.020 X10^3/uL (0.0-0.0); Mean Corp Hgb Conc 33.8 g/dL (32-36); Mean Corpuscular Volume 97.0 fL (80-94); Mean Platelet Vol. 10.9 fl (6.2-12.0); NRBC Flagged by Analyzer 0 % (0-5); Platelet Count 205 K/mm3 (150-450); RBC Distribution Width CV 12.0 % (11.6-14.6); RBC Distribution Width SD 42.9 fl (35.1-43.9); Red Blood Count 4.27 M/mm3 (4.6-6.2); White Blood Count 6.9 K/mm3 (4.4-11.0)
--- NOTE | 2025-03-07 13:55 | CT_ITS ---
PROCEDURE: CTA HEAD W/WO CONTRAST 03/07/2025 REASON FOR EXAM: HEADACHE, HISTORY OF BRAIN ANEURYSM TECHNIQUE: CTA HEAD W/WO CONTRAST Multiplanar Sagittal and Coronal images were obtained. 3D post processing was performed CONTRAST: Isovue 370 VOLUME: 75 mL One or more dose reduction techniques were used (e.g., Automated exposure control, adjustment of the mA and/or kV according to patient size, use of iterative reconstruction technique). RADIATION DOSE SUMMARY: CTDlvol: 135 mGy DLP: 1985 mGycm COMPARISON: January 25, 2019 FINDINGS: Head CT: Brain: Encephalomalacia left occipital and parietal region. No acute hemorrhage is seen. No acute ischemia is seen. Extensive low-density in the periventricular white matter and deep white matter is seen. No midline shift or mass effect. No extra-axial fluid collection is seen. CT angiogram: [place]: Patent, small caliber posterior communicating arteries are present bilaterally. Anuerysm or AVM: None Distal internal carotid arteries: Cavernous and supraclinoid internal carotid arteries with some mural plaque. Anterior cerebral arteries: Patent Middle cerebral arteries: Patent. Vertebral arteries: Right is dominant. Both are patent. Basilar artery: Patent Posterior cerebral arteries: Patent Other major branches of the posterior circulation: Patent Major venous structures: Patent Non-vascular findings: Some ossification of the midline falx. CT/CTA Head W/WO Contrast IMPRESSION: 1. No large vessel occlusion. 2. Atherosclerosis is present. No stenosis or aneurysm seen. 3. Extensive chronic microvascular ischemia. Encephalomalacia left occipital lobe and parietal lobe. No acute ischemia. Reading Location: [id number]
[2025-03-07 14:00] VITALS: BP 149/88; PULSE 54; RESP 15; O2SAT 100
[2025-03-07 14:09] LABS: Anion Gap 11 (5-15); BUN 15 mg/dL (4-19); BUN/Creat Ratio 16.7 RATIO (10-20); Calcium,Total 9.6 mg/dL (7.6-11.0); Carbon Dioxide 22.6 mmol/L (21.0-32.0); Chloride 106 mmol/L (98-108); Estimated Creatinine Clearance 75.88 ml/min (50-250); Glucose 84 mg/dL (70-99); Potassium 4.3 mmol/L (3.3-5.1)
[2025-03-07 14:45] VITALS: BP 156/79; PULSE 60; RESP 18; TEMP 36.8; O2SAT 100
--- NOTE | 2025-03-07 15:41 | EX.ED.DYSGE1 ---
HPI History of Present Illness Chief Complaint: Headache Narrative Narrative: Chief complaint and HPI: Headache. 69-year-old male with past medical history of CAD, HTN, HLD, CVA presents for evaluation of headache. Patient states that he has had a mild headache for the past 2 days. He states he has a known brain aneurysm and was instructed by his neurologist to come to the ED for head CT if having a headache. He denies any fever, chills, URI symptoms, vision changes, hearing changes, numbness/tingling, or weakness. Denies any sound or light sensitivity. Denies any trauma. Not on blood thinners. No history of migraines. Headache has been gradual. Review of systems: See HPI Medications: As listed on the chart Allergies: As listed on the chart PFSH: Per chart Vital signs: As listed on the chart. Reviewed. Physical exam: Gen: A&O x3, NAD Head: Normocephalic, atraumatic Eyes: No sclera icterus, conjunctiva clear, PERRL, EOMI ENT: TMs clear BL, moist mucous membranes, posterior oropharynx unremarkable, uvula midline, no facial asymmetry Neck: Trachea midline, No JVD, Full ROM, No meningismus CV: RRR, no murmurs, no peripheral edema Resp: Lungs CTA BL, no w/r/c GI: Abd soft, non-distended, non-tender, no r/r/g Musc: Full ROM, no deformity, strength +5/5 in all extremities Skin: Warm, dry, no rash Neuro: Alert, oriented, grossly intact, sensation intact Psych: Cooperative, appropriate mood and affect [facility] Medical History 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 Elevated alkaline phosphatase level CVA (cerebral vascular accident) Pre-operative cardiovascular examination Peripheral vascular disease Carotid artery stenosis COPD (chronic obstructive pulmonary disease) Anxiety and depression Vitamin D deficiency Essential hypertension Hyperlipidemia Enlarged prostate Allergies Home Medications ?Medication ?Instructions ?Recorded ?Last Taken ?Type albuterol sulfate 90 mcg/actuation 2 puff inhalation Q4H PRN PRN 11/14/18 Unknown Rx aerosol inhaler Wheezing ##1 citalopram 40 mg tablet 40 mg PO DAILY depression 02/11/20 10/16/20 History mometasone-formoterol HFA 100 2 puff inhalation BID sob 02/11/20 Unknown History mcg-5 mcg/actuation aerosol inhaler amlodipine 5 mg tablet 5 mg PO DAILY daily #90 tabs 03/17/24 Unknown Rx finasteride 5 mg tablet (Proscar) 5 mg PO DAILY 03/17/24 Unknown History rosuvastatin 40 mg tablet (Crestor) 40 mg PO DAILY #90 tabs 03/17/24 Unknown Rx tamsulosin 0.4 mg capsule (Flomax) 0.4 mg PO DAILY 03/17/24 Unknown History Allergy/AdvReac Type Severity Reaction Status Date / Time No Known Allergies Allergy Verified 03/07/25 12:03 Family History Mother , MOTHER FROM HEART DISEASE CAD (coronary artery disease) CVA (cerebral vascular accident) Heart disease Brother Hypertension Father , FATHER FROM BLACK LUNG, WORKED IN THE [employer] No problems noted. Brother , AT No problems noted. Brother , FROM LUNG CANCER Lung cancer Surgical History Hx of bilateral cataract extraction (~11/07/22) Carotid artery aneurysm History of left knee surgery History of tonsillectomy Right cornea abrasion History of epidermal inclusion cyst excision Social History Smoking Status: Former smoker alcohol intake: never substance use type: does not use EXAM Physical Exam Const Vital Signs: 03/07/25 12:00 03/07/25 14:00 03/07/25 14:45 Temperature 98.3 F 98.3 F Temperature Source Oral Pulse Rate 66 54 L 60 Respiratory Rate 16 15 18 Blood Pressure 107/62 149/88 H 156/79 H Blood Pressure Mean 77 108 104 Pulse Ox 99 100 100 Oxygen Delivery Method Room Air Room Air MDM MDM MDM Narrative Medical decision making narrative: 69-year-old male with past medical history of CAD, HTN, HLD, CVA presents for evaluation of headache. Patient states that he has had a mild headache for the past 2 days. He states he has a known brain aneurysm and was instructed by his neurologist to come to the ED for head CT if having a headache. Denies acute onset of headache reaching maximal intensity in under one hour. This is neither the worst headache that they have ever experienced, nor was the onset timed with exertional activity or trauma. Patient has not experienced any fever, unusual neck pain or stiffness, syncope, or near syncope. They deny numbness, tingling, or weakness of the extremities. He does endorse a history of aneurysm. Differential diagnosis includes but is not limited to tension headache, migraine, suspect less likely for intracranial abnormality or bleed however given patient's history of aneurysm CTA head ordered. Will obtain basic labs for contrast. NS bolus, Zofran, morphine ordered for headache. CBC unremarkable. BMP unremarkable. CT head without large vessel occlusion. Atherosclerosis present. No stenosis or aneurysm. Chronic microvascular ischemia. Encephalomalacia of the left occipital lobe and parietal lobe. No acute ischemic changes. On reevaluation, patient's headache has improved. Him and his family member were updated about the results and the findings. They were made aware that there is no aneurysm seen on imaging. Follow-up with PCP and neurologist. He confirmed understand the plan. Patient discharged home. Impression: 1. Headache 2. Reported history of brain aneurysm Lab Data Labs: Laboratory Results - last 24 hr 03/07/25 12:52 WBC 6.9 RBC 4.27 L Hgb 14.0 Hct 41.4 MCV 97.0 H MCH 32.8 H MCHC 33.8 RDW Std Deviation 42.9 RDW Coeff of Dyan 12.0 Plt Count 205 MPV 10.9 Immature Gran % (Auto) 0.300 Neut % (Auto) 68.8 Lymph % (Auto) 23.2 Stephenson % (Auto) 6.7 Eos % (Auto) 0.4 Baso % (Auto) 0.6 Absolute Neuts (auto) 4.7 Absolute Lymphs (auto) 1.59 Nucleated RBC % 0 Sodium 139 Potassium 4.3 Chloride 106 Carbon Dioxide 22.6 Anion Gap 11 BUN 15 Creatinine 0.87 Estim Creat Clear Calc 75.88 Est GFR (MDRD) Non-Af 93 BUN/Creatinine Ratio 16.7 Glucose 84 Calcium 9.6 Radiography Diagnostic Testing: Clinical Impression(s) from Imaging Studies Head CTA 03/07/25 13:55 IMPRESSION: 1. No large vessel occlusion. 2. Atherosclerosis is present. No stenosis or aneurysm seen. 3. Extensive chronic microvascular ischemia. Encephalomalacia left occipital lobe and parietal lobe. No acute ischemia. Reading Location: [facility] Discharge Plan Triage Chief Complaint: Headache ED Provider: Oscar Beckford Dx/Rx/DC Orders Clinical Impression: Headache Instructions: ED Headache Unspecified Prescriptions: No Action citalopram 40 mg tablet 40 mg PO DAILY mometasone-formoterol 100-5 mcg/actuation HFA aerosol inhaler 2 puff INHALATION BID tamsulosin [Flomax] 0.4 mg capsule 0.4 mg PO DAILY finasteride [Proscar] 5 mg tablet 5 mg PO DAILY rosuvastatin [Crestor] 40 mg tablet 40 mg PO DAILY Qty: 90 3RF amlodipine 5 mg tablet 5 mg PO DAILY Qty: 90 3RF albuterol sulfate 1 INHALER inhaler 2 puff inhalation Q4H PRN PRN (Reason: Wheezing) Qty: 1 0RF Primary Care Provider: Carli Shell Referrals: Carli Shlel MD [Primary Care Provider] - 3-5 Days Activity Restrictions/Additional Instructions: Follow-up with primary care physician and neurologist. Return back to ED if symptoms change or worsen Print Language: Bengali Disposition Disposition: Home, Self Care Discharge Date/Time: 03/07/25 14:53
== END 2025-03-07 14:53 | disposition home or self-care (01) ==
PROVIDERS: Emergency Provider Surgery; PCP Internal Medicine; Visit Provider Surgery
DX: R51.9 Headache, unspecified (principal); J44.9 Chronic obstructive pulmonary disease, unspecified; I25.10 Atherosclerotic heart disease of native coronary artery without angina pectoris; I10 Essential (primary) hypertension; E78.5 Hyperlipidemia, unspecified; Z87.891 Personal history of nicotine dependence; Z86.73 Personal history of transient ischemic attack (TIA), and cerebral infarction without residual deficits; I67.2 Cerebral atherosclerosis; G93.89 Other specified disorders of brain; Z86.79 Personal history of other diseases of the circulatory system
CPT/HCPCS: 70496; 80048; 85025; 96361; 96374; 96375; 99283; Q9967; A4216; J2405

== ENCOUNTER → 2025-06-07 | Outpatient (CLI) | payer MEDICARE, SELFPAY ==
--- NOTE | 2025-06-07 06:02 | ECHOD_ITS ---
Reason For Study Reason For Study: PRE OP Procedure This was a 2D Doppler, Color Flow transthoracic echocardiogram. The study was technically difficult. Exam performed in department. Left Ventricle Normal size and thickness. The left ventricular ejection fraction is 65 %. Normal diastololic function. Right Ventricle Normal right ventricle. Atria The left and right atria are normal. Mitral Valve Trivial mitral valve insufficiency. Tricuspid Valve Trivial tricuspid valve insufficiency. Unable to estimate RV systolic pressure due to insufficient tricuspid regurgitant envelope. Aortic Valve Trisinus/trileaflet aortic valve. Trivial aortic valve insufficiency. Pulmonic Valve The pulmonic valve is not well visualized. Great Vessels Normal sized aortic root. Pericardium/Pleural No pericardial effusion. MMode/2D Measurements & Calculations LVIDd: 4.4 cm IVSd: 1.0 cm LVOT diam: 2.1 cm LVIDs: 2.5 cm LVPWd: 1.0 cm LVOT area: 3.4 cm2 RVDd: 3.6 cm FS: 44.0 % Ao root diam: 2.8 cm LAV(MOD-bp): 36.8 ml LVAd ap4: 23.0 cm2 LAV(MOD-bp) Indexed: 20.2 ml/m2 LVLd ap4: 7.3 cm LAV(MOD-sp2): 49.4 ml EDV(MOD-sp4): 61.2 ml LAV(MOD-sp4): 27.8 ml EDV(sp4-el): 61.7 ml LVAs ap4: 10.9 cm2 LVLs ap4: 5.7 cm ESV(MOD-sp4): 17.3 ml ESV(sp4-el): 17.5 ml EF(MOD-sp4): 71.7 % EF(sp4-el): 71.6 % LVAd ap2: 19.5 cm2 SV(MOD-sp4): 43.9 ml SV(MOD-sp2): 27.0 ml LVLd ap2: 7.1 cm SI(MOD-sp4): 24.1 ml/m2 SI(MOD-sp2): 14.9 ml/m2 EDV(MOD-sp2): 44.0 ml EDV(sp2-el): 45.1 ml LVAs ap2: 10.8 cm2 LVLs ap2: 5.9 cm ESV(MOD-sp2): 16.9 ml ESV(sp2-el): 16.9 ml EF(MOD-sp2): 61.5 % SV(sp4-el): 44.2 ml Ao sinus diam: 2.[address] Junction: 2.3 cm LA dimension(2D): 3.3 cm LA A4 area: 12.2 cm2 RA A4 area: 12.9 cm2 TAPSE: 1.8 cm Time Measurements MV dec time: 0.23 sec Doppler Measurements & Calculations MV E max eloy: 85.8 cm/sec Lat Peak E' Eloy: 13.4 cm/sec Med Peak E' Eloy: 11.6 cm/sec MV A max eloy: 57.5 cm/sec E/E' lat: 6.4 E/E' med: 7.4 MV E/A: 1.5 MV dec slope: 374.9 cm/sec2 Ao V2 max: 128.8 cm/sec LV V1 max: 109.4 cm/sec Ao max P.6 mmHg LV V1 max P.8 mmHg Ao V2 mean: 81.4 cm/sec LV V1 mean P.3 mmHg Ao mean P.0 mmHg LV V1 mean: 72.9 cm/sec Ao V2 VTI: 24.6 cm LV V1 VTI: 20.4 cm AV (velocity ratio): 0.83 CHANDLER(I,D): 2.8 cm2 CHANDLER(V,D): 2.9 cm2 SV(LVOT): 68.7 ml PA V2 max: 92.5 cm/sec TR max eloy: 277.1 cm/sec TR max P.7 mmHg ECHO/Echo Complete Interpretation Summary The left ventricular ejection fraction is 65 %. Normal diastololic function. Ordering Physician: Junior Isaacs Referring Physician: Carli Shell M.D. Performed By: Yara Harvey RDCS
--- OUTSIDE RECORDS SUMMARY | 2025-06-07 06:03 | XMS RPT_ITS | CCD ---
Author Organization [facility] Inform ion Partnership [facility] Care Team Providers Care Wind Development Director Name Role Phone Elias Rider II Unavailable Unavailable Update Needed Unavailable Unavailable Malu Rowe Primary Care Provider [facility] Cardiac Res piration, Other Primary Care Provider ARTHUR CARCAMO Attending Unavailable MALU ROWE Primary Care Unavailable Pending Provider Unavailable Unavailable Unavailable Unavailable Malu Rowe MD Primary Care Provider Weston Crespo MD Unavailable [phone] Dr. Malu Rowe Primary Care Provider Dr. Malu Rowe Referring Provider Good ALEMAN, YONG Campos Attending Provider Malu Rowe Unavailable Malu Rowe MD Primary Care Provider Weston Crespo MD Unavailable [phone] Malu Rowe MD Primary Care Provider Weston Crespo MD Unavailable Paolo HUANGOVEN BUILDER, Kesha Primary Care Provider Malu Rowe Primary Care Unavailable Dr. Elias Rider II Attending Amanda Rider II, Dr. Elias Mak Referring Malu Maxwell Primary Care Unavailable Dr. Massiel Harrell Admitting Unavai lable Harrell, Dr. Massiel Koehler Attending Unavai lable Harrell, Dr. Massiel Koehler Referring Unavai lable Harrell, Dr. Massiel Koehler Admitting Unavai lable Harrell, Dr. Massiel Koehler Attending Unavai lable Harrell, Dr. Massiel Koehler Referring Unavai lable Talampdione, Malu Primary Care Unavailable Talampas, Malu Primary Care Unavailable MD ELIAS RIDER Attending Unavailabl e MD ELIAS RIDER Referring Unavailabl e Talampas, Malu Primary Care Unavailable MD ELIAS RIDER Attending Unavailabl e MD ELIAS RIDER Referring Unavailabl e Talyarelis, Dr. Malu Chiang Primary Care Provider Jae, Dr. Malu Chiang Referring Provider Good AUTOMATIC CHIEF, AUTOMATIC CHIEFSydniC Beth Attending Provider Malu Rowe MD Primary Care Provider Malu Rowe MD Primary Care Provider Boone SYSTEM CONFIGURATION SPECIALIST.OVEN BUILDER, Kesha Primary Care Provider Unavailable Primary Care Provider Unavailabl FRANK Logan Attending Unavailab KESHA Flores Referring Unavailable TALAMPDIONE, MALU D Primary Care Unavailable TALAMPDIONE, MALU D Primary Care Unavailable TIP RAMIREZ Attending Unavailable Malu Rowe MD Primary Care Provider [place]one SYSTEM CONFIGURATION SPECIALIST.OVEN BUILDER, Kesha Primary Care Provider Malu Rowe MD Primary Care Provider Boone SYSTEM CONFIGURATION SPECIALIST.OVEN BUILDER, Kesha Unavailable Rola SYSTEM CONFIGURATION SPECIALIST.PSYCHOLOGICAL STRESS EVALUATOR, Irlanda Unavailable Rola SYSTEM CONFIGURATION SPECIALIST.PSYCHOLOGICAL STRESS EVALUATOR, Irlanda Unavailable Boone SYSTEM CONFIGURATION SPECIALIST.OVEN BUILDER, Kesha Unavailable ELIAS RIDER Attending Unavailable JAE MALU D Primary Care Unavailable ELIAS RIDER Attending Unavailable TALAMPDIONE, MALU D Primary Care Unavailable ELIAS RIDER Attending Unavailable TALAMPDIONE MALU D Primary Care Unavailable Jae ESCALANTE, Dr. Malu Chiang Primary Care Provider [phone] Darlin ESCALANTE, Dr. aPcheco Attending Provider Darlin ESCALANTE, Dr. Pacheco Referring Provider Mario [facility] MARTINS, Dr. Moore Emergency Provider Mario [facility] MARTINS, Dr. Moore Attending Provider Jae ESCALANTE, Dr. Malu Chiang Referring Provider [phone] Kalia ESCALANTE, Dr. Little Attending Provider [phone] TALAMPAS, MALU D Primary Care Unavailable TALAMPAS, MALU D Referring Unavailable TALAMPAS, MALU D Primary Care Unavailable TALAMPAS, MALU D Referring Unavailable TALAMPAS, MALU D Primary Care Unavailable BOONE, KESHA Attending Unavailable TALAMPAS, MALU D Primary Care Unavailable TALAMPAS, MALU D Primary Care Unavailable Carolin FANG Referring Unavailable HARRELLTONYMASSIEL Grace Referring Unavailable HARRELLTONYMASSIEL Grace Attending Unavailable TALAMPAS, MALU D Primary Care Unavailable ATR DONOVAN Attending Unavailable TALAMPAS, MALU D Primary Care Unavailable TALAMPAS, MALU D Primary Care Unavailable TALAMPAS, MALU D Attending Unavailable TALAMPAS, MALU D Primary Care Unavailable BOONE, KESHA Referring Unavailable TALAMPAS, MALU D Primary Care Unavailable MOISES PENDLETON Referring Unavailable TALAMPAS, MALU D Primary Care Unavailable Carolin FANG Referring Unavailable TALAMPAS, MALU D Primary Care Unavailable TALAMPAS, MALU D Primary Care Unavailable KHALIFEH, ALI Referring Unavailable MOISES PENDLETON Attending Unavailable TALAMPAS, MALU D Primary Care Unavailable TALAMPAS, MALU D Primary Care Unavailable HARRELL, MASSIEL K Referring Unavailable HARRELL, MASSIEL K Attending Unavailable TALAMPAS, MALU D Primary Care Unavailable MOISES PENDLETON Referring Unavailable TALAMPAS, MALU D Primary Care Unavailable KHALIFEH, ALI Referring Unavailable KHALIFEH, ALI Attending Unavailable TALAMPAS, MALU D Primary Care Unavailable MOISES PENDLETON Referring Unavailable TALAMPAS, MALU D Primary Care Unavailable MOISES PENDLETON Referring Unavailable TALAMPAS, MALU D Primary Care Unavailable MOISES PENDLETON Referring Unavailable CAROLINE JOHNSON Attending Unavailable TALAMPAS, MALU D Primary Care Unavailable TALAMPAS, MALU D Referring Unavailable TALAMPAS, MALU D Primary Care Unavailable Carolin FANG Attending Unavailable TALAMPAS, MALU D Primary Care Unavailable BOONE, KESHA Attending Unavailable TALAMPAS, MALU D Primary Care Unavailable BOONE, KESHA Referring Unavailable Jae ESCALANTE, Dr. Malu Chiang [facility] Dr. Moore [facility]ending [facility] Dr. Moore Emergency [facility] t Physician Kalia ESCALANTE, Dr. Little Attending Physician [phone] Lily Samayoa Attending Physician Lily Acosta Attending Unavailable Talampas, Malu D Referring Unavailable Talampas, Malu D Primary Care Unavailable Roof AUTOMATIC CHIEF, Elias Eubanks Attending Unavailable Talampas, Malu D Referring Unavailable Talampas, Malu D Primary Care Unavailable Lily Acosta Attending Unavailable Lily Acosta Referring Unavailable Talampas, Malu D Primary Care Unavailable Rider II, Elias Attending Unavailable Rider II, Elias Referring Unavailable Talampas, Malu D Primary Care Unavailable Talampas, Malu D Primary Care Unavailable Oscar Beckford Attending Unavailabl e Roof AUTOMATIC CHIEF, Elias Eubanks Attending Unavailable Roof AUTOMATIC CHIEF, Elias Eubanks Referring Unavailable Talampas, Malu D Primary Care Unavailable Sidney Motta Attending Unavailable Talampas, Malu D Referring Unavailable Talampas, Malu D Primary Care Unavailable Talampas, Malu D Referring Unavailable Talampas, Malu D Primary Care Unavailable Lily Acosta Attending Unavailable Allergies Allergy Classification Reported Allergen(s) Allergy Type Date of Onset Reaction(s) Facility (20 sources) Seasonal allergy; Translations: [SEASONAL ALLERGIES] Allergy to substance 6 Other: See Comments [facility] Medications Current Medications Medication Drug Class(es) Dates Sig (Normalized) Sig (Original) [id number] 200 actuat albuterol 0.09 mg/actuat metered dose inhaler (20 sources) beta2-Adrenergic Agonist Start: 02-11-2025 take 2 puff(s) by inhalation every six hours as needed for wheezing albuterol HFA (PROVENTIL HFA, VENTOLIN HFA) 90 mcg/actuation inhaler Inhale 2 puffs as instructed every 6 hours as needed for wheezing/shortnes s of breath. 18 g 11 02/11/2025 Active Start: 05-02-2019 End: 02-11-2020 Albuterol Sulfate 1 INHALER inhaler Discontinued 2 NMA INHALATION EVERY 4 HOURS NEEDED as needed for Wheezing 1 May 02, 2019 12:00am February 11, 2020 1:55pm Dispnese with Spacer Start: 05-02-2019 End: 02-11-2020 take 1 puff(s) by inhalation every four hours as needed Albuterol Sulfate Discontinued 2 PUFF INHALATION EVERY 4 HOURS NEEDED May 01, 2019 11:00pm February 11, 2020 12:55pm Dispnese with Spacer Start: 11-15-2018 take 2 puff(s) by in halation every four hours as needed albuterol HFA (PROAIR HFA) 90 mcg/actuation inhaler Indications: Seasonal allergies Inhale 2 Puffs as instructed every 4 hours as needed for up to 15 days. 1 Inhaler 04/12/2019 Active Start: 11-15-2018 take 2 puff(s) by in halation every four hours as needed for wheezing Albuterol Sulfate HFA 108 (90 Base) MCG/ACT Inhalation Aerosol Solution INHALE 2 (TWO) puffs EVERY 4 HOURS NEEDED for FOR WHEEZING Quantity: 18 Refills: 0 Ordered: 15-Nov-2018 DO Start : 15-Nov-2018 Active Start: 11-14-2018 Start: 11-14-2018 take 1 puff(s) by in halation every four hours as needed Albuterol Sulfate Active 2 PUFF INHALATION EVERY 4 HOURS NEEDED November 13, 2018 11:00pm Comment on above: Inhale 2 Puffs as in structed every 4 hours as needed for up to 15 days. benoxinate hydrochloride 4 mg/ml / fluorescein sodium 2.5 mg/ml ophthalmic solution (2 sources) Diagnostic Dye Start: 05-15-2022 End: 05-15-2022 fluorescein-benoxi yessenia 0.25-0.4 % 1 Drop (FLURESS) Start: 11-06-2021 End: 11-06-2021 fluorescein-benoxinate 0.25- 0.4 % 1 Drop (FLURESS) cetirizine hydrochloride 10 mg oral tablet (14 sources) Histamine-1 Receptor Antagonist Start: 11-27-2018 take 1 tablet by mouth once daily as needed cetirizine (ZyrTEC) 10 mg tablet Take 1 tablet (10 mg) by mouth once daily. As needed for nasal drainage 11/27/2018 Active cholecalciferol 0.125 mg oral capsule (20 sources) Vitamin D Start: 03-29-2025 take 1 capsule by mouth once daily Start: 05-29-2017 End: 03-25-2023 take 1 capsule by mouth every week cholecalciferol, Vitamin D3, (VITAMIN D3) 50,000 unit cap capsule Take 1 capsule by mouth once each week. 4 capsule 2 05/29/2017 03/25/2023 Discontinued take 1 tablet by amanda th once daily cholecalciferol (VITAMIN D-3) 5,000 unit tab Take 5,000 Units by mouth once daily. Active take 2 tablets by mo uth once daily cholecalciferol (Vitamin D-3) 25 MCG (1000 UT) tablet Take 2 tablets (2,000 Units) by mouth once daily. Active cholecalciferol, vitamin D3, 1,000 unit tablet Take 5 (five) tablets (5,000 Units total) by mouth daily TAKES 5,OOO INTERNATIONAL UNITS . 0 Active take 1 tablet by amanda th once daily Vitamin D3 25 MCG (1000 UT) tablet Take 2,000 Units by mouth daily. 0 Active Comment on above: Take 1 capsule by mo uth once each week. citalopram 40 mg oral tablet (20 sources) Serotonin Reuptake Inhibitor Start: 11-12-2018 End: 10-27-2024 take 1 tablet by mouth once daily Start: 01-24-2014 End: 02-11-2020 take 1 tablet by mouth once daily Citalopram 20 MG tablet Discontinued 20 mg PO DAILY January 24, 2014 12:00am February 11, 2020 1:55pm CeleXA TABS Refi lls: 0 Active Comment on above: Take 1 tablet by amanda th once daily. dorzolamide 20 mg/ml / timolol 5 mg/ml ophthalmic solution (17 sources) Carbonic Anhydrase Inhibitor, beta-Adrenergic Snow Start: 10-08-2022 take 1 drop(s) into the eye(s) twice daily dorzolamide-timoloL (Cosopt) 22.3-6.8 mg/mL ophthalmic solution Administer 1 drop into both eyes 2 times a day. 10/08/2022 Active Start: 09-27-2022 End: 11-11-2022 take 1 drop(s) into the eye(s) twice daily dorzolamide-timolol (COSOPT) 22.3-6.8 mg/mL ophthalmic solution Use 1 Drop in the left eye twice daily. 10 mL 5 09/27/2022 11/11/2022 Discontinued (Clinical Decision) Start: 05-15-2022 take 1 drop(s) into the eye(s) twice daily dorzolamide-timolol (COSOPT) 22.3-6.8 mg/mL ophthalmic solution Use 1 Drop in both eyes twice daily. 10 mL 5 05/15/2022 Active Start: 11-06-2021 End: 02-04-2022 take 1 drop(s) into the eye(s) twice daily dorzolamide-timolol (COSOPT) 22.3-6.8 mg/mL ophthalmic solution Use 1 Drop in both eyes twice daily. 10 mL 3 11/06/2021 12/26/2021 Discontinued (Cost of medication) Comment on above: Use 1 Drop in both e yes twice daily. Use 1 Drop in the le ft eye twice daily. doxycycline hyclate 100 mg oral tablet (1 source) Tetracycline-class Drug Start: 4 End: 4 take 1 tablet by mouth twice daily doxycycline (VIBRA-TABS) 100 mg tablet Take 1 tablet by mouth two times a day for 5 days. 10 tablet 05/12/2024 05/17/2024 Active finasteride 5 mg oral tablet (20 sources) 5-alpha Reductase Inhibitor Start: 1 End: 6 take 1 tablet by mouth once daily Comment on above: Take by mouth. fluticasone-umeclidi n-vilanter (TRELEGY ELLIPTA) 200-62.5-25 mcg inhalation powder (2 sources) Start: 5 take 1 puff(s) by inhalation once daily fluticasone-umeclid in-vilanter (TRELEGY ELLIPTA) 200-62.5-25 mcg inhalation powder Inhale 1 puff as instructed once daily. 60 each 02/11/2025 Active 120 actuat formoterol fumarate 0.005 mg/actuat / mometasone furoate 0.1 mg/actuat metered dose inhaler (20 sources) Corticosteroid, beta2-Adrenergic Agonist Start: Start: 02-11-2020 take 1 puff(s) by in halation twice daily Mometasone-Formoterol Active 2 PUFF INHALATION TWICE A DAY February 10, 2020 11:00pm Start: 12-14-2019 End: 02-11-2025 take 2 puff(s) by inhalation twice daily mometasone-formoterol (DULERA) 100-5 mcg/actuation inhaler Inhale 2 Puffs as instructed twice daily. 12/14/2019 02/11/2025 Discontinued (Course of therapy completed) Comment on above: Inhale 2 Puffs as in structed twice daily. 12 hr guaiFENesin 600 mg extended release oral tablet (1 source) Start: 05-12-20 End: 05-19-20 take 1 tablet by mouth twice daily as needed guaiFENesin (MUCINEX) 600 mg 12 hr tablet Take 1 tablet by mouth two times a day as needed for cold/allergy symptoms (cough) for up to 7 days. 14 tablet 05/12/2024 05/19/2024 Active ketorolac tromethamine 5 mg/ml ophthalmic solution (8 sources) Nonsteroidal Anti-inflammatory Drug, Cyclooxygenase Inhibitor Start: 11-08-19 End: 12-13-19 take 1 drop(s) into the eye(s) four times daily keTORolac (ACULAR) 0.5 % ophthalmic solution Use 1 Drop in the left eye four times daily. 5 mL 2 11/07/2022 12/12/2022 Active Start: 10-28-2022 End: 10-31-2022 take 1 drop(s) into the eye(s) three times daily keTORolac (ACULAR) 0.5 % ophthalmic solution Use 1 Drop in the right eye three times daily for 3 days. 10 mL 2 10/28/2022 10/31/2022 Active Start: 09-27-2022 End: 11-01-2022 take 1 drop(s) into the eye(s) four times daily keTORolac (ACULAR) 0.5 % ophthalmic solution Use 1 Drop in the right eye four times daily. 10 mL 2 09/27/2022 10/28/2022 Discontinued Comment on above: Use 1 Drop in the ri ght eye four times daily. Use 1 Drop in the ri ght eye three times daily for 3 days. Use 1 Drop in the le ft eye four times daily. latanoprost 0.05 mg/ml ophthalmic solution (20 sources) Prostaglandin Analog Start: take 1 drop(s) into the eye(s) once daily at bedtime latanoprost (Xalatan) 0.005 % ophthalmic solution Administer 1 drop into both eyes once daily at bedtime. 10/05/2022 Active Start: 09-27-2022 End: 11-11-2022 take 1 drop(s) into the eye(s) once daily at bedtime latanoprost (XALATAN) 0.005 % ophthalmic solution Use 1 Drop in the left eye daily at bedtime. 2.5 mL 5 09/27/2022 11/11/2022 Discontinued (Clinical Decision) Start: 09-25-2021 End: 06-14-2022 take 1 drop(s) into the eye(s) once daily at bedtime latanoprost (XALATAN) 0.005 % ophthalmic solution Use 1 Drop in both eyes daily at bedtime. 2.5 mL 5 05/15/2022 Active Comment on above: Use 1 Drop in both e yes daily at bedtime. Use 1 Drop in the le ft eye daily at bedtime. levETIRAcetam 1000 mg oral tablet (14 sources) Start: 01-27-20 19 take 1 tablet by mouth twice daily levETIRAcetam (Keppra) 1,000 mg tablet Take 1 tablet (1,000 mg) by mouth 2 times a day. 01/26/2019 Active moxifloxacin 5 mg/ml ophthalmic solution (2 sources) Quinolone Antimicrobial Start: 11-09-19 End: 11-12-19 23 take 1 drop(s) into the eye(s) four times daily moxifloxacin (VIGAMOX) 0.5 % ophthalmic solution Use 1 Drop in the left eye four times daily. 3 mL 3 11/08/2022 11/11/2022 Discontinued (Other) Comment on above: Use 1 Drop in the le ft eye four times daily. phenylephrine hydrochloride 25 mg/ml ophthalmic solution (4 sources) alpha-1 Adrenergic Agonist Start: 09-13-19 End: 09-14-19 PHENYLephrine 2.5 % 1 Drop (AK-DILATE, MARCELLA-SYNEPHRINE) Start: 09-13-2024 End: 09-14-2024 1 Drop, BOTH EYES, DIRECT ED, Starting on Fri09/13/24 at 1430, Until Fri09/14/24 at 0229, Administer for dilation PROTECT FROM LIGHT Start: 04-29-2023 End: 04-29-2023 PHENYLephrine 2.5 % 1 Drop ( AK-DILATE, MARCELLA-SYNEPHRINE) Start: 05-15-2022 End: 05-15-2022 PHENYLephrine 2.5 % 1 Drop ( AK-DILATE, MARCELLA-SYNEPHRINE) proparacaine hydrochloride 5 mg/ml ophthalmic solution (6 sources) Local Anesthetic Start: 03-14-2025 End: 03-15-2025 proparacaine 0.5 % 1 drop (ALCAINE) Start: 09-13-2024 End: 09-14-2024 proparacaine 0.5 % 1 Drop (A LCAINE) Start: 09-13-2024 End: 09-14-2024 1 Drop, BOTH EYES, DIRECT ED, Starting on Fri09/13/24 at 1430, Until Fri09/14/24 at 0229, Administer for pneumo tonometry, tonopen tonometry, or pachymetry. In the event of a proparacaine shortage, administer tetracaine 0.5% ophthalmic drops 1 drop in the left eye as directed for pneumo tonometry, tonopen tonometry, or pachymetry Start: 04-29-2023 End: 04-29-2023 proparacaine 0.5 % 1 Drop (A LCAINE) Start: 09-30-2022 End: 09-30-2022 proparacaine 0.5 % 1 Drop (A LCAINE) Start: 05-15-2022 End: 05-15-2022 proparacaine 0.5 % 1 Drop (A LCAINE) sildenafil 100 mg oral tablet (14 sources) Phosphodiesterase 5 Inhibitor Start: 12-08-2019 sildenafil (Viagra) 100 mg tablet Take 1 tablet (100 mg) by mouth if needed. 12/08/2019 Active tadalafil 20 mg oral tablet (14 sources) Phosphodiesterase 5 Inhibitor Start: 10-11-2019 tadalafil 20 mg tablet TAKE 1 TABLET 1 HOUR BEFORE ACTIVITY NEEDED. 10/11/2019 Active tamsulosin hydrochloride 0.4 mg oral capsule (20 sources) alpha-Adrenergic Snow Start: 10-18-2020 End: 01-12-2026 take 1 capsule by mouth once daily Comment on above: TAKE 1 CAPSULE BY [facility] EVERY DAY AT BEDTIME tropicamide 10 mg/ml ophthalmic solution (4 sources) Anticholinergic Start: 09-13-2024 End: 09-14-2024 tropicamide 1 % 1 Drop (MYDRIACYL) Start: 09-13-2024 End: 09-14-2024 1 Drop, BOTH EYES, DIRECT ED, Starting on Fri09/13/24 at 1430, Until Fri09/14/24 at 0229, Administer for dilation Start: 04-29-2023 End: 04-29-2023 tropicamide 1 % 1 Drop (MYDR IACYL) Start: 05-15-2022 End: 05-15-2022 tropicamide 1 % 1 Drop (MYDR IACYL) trospium chloride 20 mg oral tablet (20 sources) Cholinergic Muscarinic Antagonist Start: 06-27-2020 End: 09-27-2024 take 1 tablet by mouth twice daily trospium (Sanctura) 20 mg tablet Take 1 tablet (20 mg) by mouth twice a day. 06/27/2020 Active Comment on above: Take 20 mg by mouth twice daily. varenicline 1 mg oral tablet (6 sources) Partial Cholinergic Nicotinic Agonist Start: 03-13-2025 End: 05-12-2025 Start: 02-11-2025 End: 03-13-2025 take 0.5 tablet by mouth once daily, then take 0.5 tablet by mouth twice daily, then take 1 tablet by mouth twice daily varenicline (CHANTIX) 1 mg tablet Take 0.5 tablets by mouth once daily for 3 days, THEN 0.5 tablets two times a day for 4 days, THEN 1 tablet two times a day for 23 days. 52 tablet 02/11/2025 Active Completed/Discontinued Medications Medication Drug Class(es) Dates Sig (Normalized) Sig (Original) acetaminophen 325 mg / HYDROcodone bitartrate 5 mg oral tablet (1 source) Opioid Agonist Start: 01-28-2019 take 1 tablet by mouth every six hours as needed for pain HYDROcodone-Aceta minophen 5-325 MG Oral Tablet TAKE 1 TABLET BY MOUTH EVERY SIX HOURS NEEDED FOR PAIN FOR UP TO SE Quantity: 28 Refills: 0 Start : 28-Jan-2019 Active alendronic acid 70 mg oral tablet (20 sources) Bisphosphonate Start: 02-11-2020 End: 03-17-2024 take 1 tablet by mouth once Alendronate 70 mg tablet Discontinued 70 mg PO MO February 11, 2020 12:00am March 17, 2024 3:01pm bones Comment on above: Take 1 tablet by amanda th one time a week. Take with a full glass of water, on an empty stomach; do NOT lie down for 30minutes. amLODIPine 5 mg oral tablet (20 sources) Dihydropyridine Calcium Channel Snow Start: 10-16-2020 End: 03-29-2025 take 1 tablet by mouth once daily Amlodipine 5 mg tablet Discontinued 5 mg PO DAILY 90 3 March 17, 2024 3:28pm March 29, 2025 2:57pm daily Start: 11-12-2018 take 1 tablet by amanda once daily amLODIPine Besylate 2.5 MG Oral Tablet Take 1 tablet by mouth once daily. Quantity: 30 Refills: 0 Ordered: 11-Dec-2018 DO Start : 12-Nov-2018 Active Comment on above: Take 1 tablet by amanda once daily. aspirin 81 mg delayed release oral tablet (8 sources) Platelet Aggregation Inhibitor, Nonsteroidal Anti-inflammatory Drug Start: 1 End: 2 Aspirin (Adult Low Dose Aspirin) 81 mg tablet,delayed release (DR/EC) Discontinued 81 mg PO DAILY August 28, 2020 1:00am August 21, 2021 12:19pm atropine sulfate 10 mg/ml ophthalmic solution (5 sources) Anticholinergic, Cholinergic Muscarinic Antagonist Start: 3 take 1 drop(s) into the eye(s) four times daily atropine 1 % ophthalmic solution Use 1 Drop in the left eye four times daily. 5 mL 2 11/08/2022 Active Start: 09-27-2022 End: 10-28-2022 take 1 drop(s) into the eye(s) four times daily atropine 1 % ophthalmic solution Use 1 Drop in the right eye four times daily. 5 mL 0 09/27/2022 10/28/2022 Discontinued Comment on above: Use 1 Drop in the ri ght eye four times daily. Use 1 Drop in the le ft eye four times daily. azithromycin 250 mg oral tablet (9 sources) Macrolide Antimicrobial Start: 05-02-20 End: 02-11-20 take 2 tablets by mouth once daily, then take 1 tablet by mouth once daily Azithromycin 250 MG tablet Discontinued 250 mg PO DIRECTED May 02, 2019 12:00am February 11, 2020 1:55pm TAKE 2 TABLETS 1ST DAY THEN 1 TABLET DAILY FOR NEXT 4 DAYS. benzonatate 100 mg oral capsule (1 source) Non-narcotic Antitussive Start: 05-12-20 End: 05-12-20 take 1 capsule by mouth every eight hours as needed benzonatate (TESSALON PERLE) 100 mg capsule Take 1 capsule by mouth three times a day as needed for cough for up to 7 days. 21 capsule 05/12/2024 05/12/2024 Discontinued (Course of therapy completed) calcium carbonate 1500 mg / cholecalciferol 800 unt oral tablet (20 sources) Vitamin D Start: 10-17-19 End: 03-17-20 Calcium Carbonate-Vitamin D3 1 EACH tablet Discontinued 1 {tbl} PO DAILY October 16, 2020 12:00am March 17, 2024 3:01pm supplement Start: 10-16-2020 take 1 tablet by amanda th once daily Calcium Carbonate-Vitamin D3 Active 1 TABLET PO DAILY October 15, 2020 11:00pm Start: 12-16-2019 End: 09-27-2024 take 1 tablet by mouth once daily calcium carbonate-vitamin D3 1,000 mg-20 mcg (800 unit) tablet Take 1,000 mg by mouth once daily. 12/16/2019 Active Comment on above: Take 1,000 mg by amanda th once daily. Take 1 tablet by amanda th once daily. Calcium Carbonate / vitamin D3 (9 sources) End: 10-27-2024 take 1 tablet by mouth once daily calcium carbonate/vitamin D3 (CALCIUM 600 + D,3, ORAL) Take 1 tablet by mouth once daily. 10/27/2024 Discontinued take 1 tablet by mouth once rock y calcium carbonate/vitamin D3 (CALCIUM 600 + D,3, ORAL) Take 1 tablet by mouth once daily. Active clopidogrel 75 mg oral tablet (20 sources) P2Y12 Platelet Inhibitor Start: 08-28-2020 End: 03-17-2024 take 1 tablet by mouth once daily Clopidogrel (Plavix) 75 mg tablet Discontinued 75 mg PO DAILY August 28, 2020 1:00am March 17, 2024 3:01pm blood thinner Comment on above: Take 1 tablet by amanda th once daily. codeine phosphate 2 mg/ml / guaiFENesin 20 mg/ml oral solution (2 sources) Opioid Agonist Start: 11-27-2018 Cheratussin AC 100-10 MG/5ML SYRP TAKE 1 TO 2 TEASPOONFULS FOUR TIMES DAILY NEEDED FOR COUGH for up t Quantity: 120 Refills: 0 Start : 27-Nov-2018 Active 24 hr fesoterodine fumarate 4 mg extended release oral tablet (8 sources) Start: 10-16-2020 End: 03-17-2024 take 1 tablet by mouth once daily Fesoterodine 4 MG tablet extended release 24 hr Discontinued 4 mg PO DAILY October 16, 2020 12:00am March 17, 2024 3:01pm bladder hydroCHLOROthiazide 25 mg oral tablet (20 sources) Thiazide Diuretic Start: 05-19-2013 End: 02-11-2020 take 1 tablet by mouth once daily Hydrochlorothiazide 25 MG tablet Discontinued 25 mg PO DAILY May 19, 2013 12:00am February 11, 2020 1:57pm hydroCHLOROthiaz andie (Microzide) 12.5 mg capsule Take by mouth. Active hydroCHLOROthiaz andie CAPS Quantity: 0 Refills: 0 Ordered: 28-Sep-2019 DO Active hydroCHLOROthiaz andie CAPS Refills: 0 Active lisinopril 5 mg oral tablet (11 sources) Angiotensin Converting Enzyme Inhibitor Start: 02-11-2020 End: 08-28-2020 take 1 tablet by mouth once daily Lisinopril 5 mg tablet Discontinued 5 mg PO DAILY February 11, 2020 12:00am August 28, 2020 12:28pm Start: 01-01-2020 take 0.5 tablet by m outh once daily lisinopril 10 mg tablet Take 0.5 tablets (5 mg) by mouth once daily. 01/01/2020 Active naproxen 500 mg oral tablet (8 sources) Nonsteroidal Anti-inflammatory Drug Start: 04-20-2018 End: 02-11-2020 take 1 tablet by mouth twice daily as needed Naproxen 500 MG tablet Discontinued 500 mg PO TWICE DAILY NEEDED April 20, 2018 12:00am February 11, 2020 1:58pm pravastatin sodium 20 mg oral tablet (20 sources) HMG-CoA Reductase Inhibitor Start: 02-11-2020 End: 02-22-2020 take 1 tablet by mouth at bedtime Pravastatin 20 mg tablet Discontinued 20 mg PO AT BEDTIME February 11, 2020 12:00am February 22, 2020 2:51pm Start: 05-19-2013 End: 02-11-2020 Pravastatin 40 MG tablet Discontinued 20 mg PO AT BEDTIME May 19, 2013 12:00am February 11, 2020 1:57pm Start: 05-19-2013 End: 02-11-2020 take 20 mg by mouth at bedtime Pravastatin Discontinue d 20 MG PO AT BEDTIME May 18, 2013 11:00pm February 11, 2020 12:57pm Pravastatin Sodi um TABS Quantity: 0 Refills: 0 Ordered: 28-Sep-2019 DO Active Pravastatin Sodi um TABS Refills: 0 Active prednisoLONE acetate 10 mg/ml ophthalmic suspension (15 sources) Corticosteroid Start: 11-08-2022 End: 03-25-2023 prednisoLONE acetate (PRED FORTE) 1 % ophthalmic suspension Use 1 Drop in the left eye every hour. 5 mL 3 11/08/2022 03/25/2023 Discontinued Start: 11-08-2022 prednisoLONE a cetate (PRED FORTE) 1 % ophthalmic suspension Use 1 Drop in the left eye every hour. 5 mL 3 11/08/2022 Active Start: 11-07-2022 End: 11-08-2022 prednisoLONE acetate (PRED F ORTE) 1 % ophthalmic suspension Use 1 Drop in the left eye four times daily. 5 mL 3 11/07/2022 11/08/2022 Discontinued Start: 10-28-2022 End: 10-31-2022 prednisoLONE acetate (PRED F ORTE) 1 % ophthalmic suspension Use 1 Drop in the right eye three times daily for 3 days. 15 mL 2 10/28/2022 10/31/2022 Active Start: 09-27-2022 End: 11-01-2022 prednisoLONE acetate (PRED F ORTE, ECONOPRED PLUS) 1 % ophthalmic suspension Use 1 Drop in the right eye four times daily. 15 mL 2 09/27/2022 10/28/2022 Discontinued Comment on above: Use 1 Drop in the ri ght eye four times daily. Use 1 Drop in the ri ght eye three times daily for 3 days. Use 1 Drop in the le ft eye every hour. Use 1 Drop in the le ft eye four times daily. predniSONE 20 mg oral tablet (9 sources) Start: 05-02-2019 End: 02-11-2020 take 40 mg by mouth once daily at mealtime Prednisone Discontinued 40 MG PO DAILY May 01, 2019 11:00pm February 11, 2020 12:58pm With food Start: 11-15-2018 End: 02-11-2020 take 2 tablets by mouth once daily at mealtime Prednisone 20 MG tablet Discontinued 40 mg PO DAILY May 02, 2019 12:00am February 11, 2020 1:58pm With food rosuvastatin calcium 40 mg oral tablet (20 sources) HMG-CoA Reductase Inhibitor Start: 02-22-2020 End: 03-29-2025 take 1 tablet by mouth once daily Rosuvastatin (Crestor) 40 mg tablet Discontinued 40 mg PO DAILY 90 3 March 17, 2024 3:28pm March 29, 2025 2:57pm rosuvastatin (Cr estor) 5 mg tablet Take by mouth. Active Crestor 5 MG Ora l Tablet Quantity: 0 Refills: 0 Ordered: 19-Jun-2020 DO Active Comment on above: Take 1 tablet by amanda once daily. zoledronic acid/mannitol-water (RECLAST INTRAVENOUS) (7 sources) End: 09-27-2024 zoledronic acid/mannitol-water (RECLAST INTRAVENOUS) Inject 1 Each intravenously every year. Last infusion: 11/13/2023 09/27/2024 Discontinued zoledronic acid/ mannitol-water (RECLAST INTRAVENOUS) Inject 1 Each intravenously every year. Last infusion: 11/13/2023 Active Problems Active Problems Problem Classification Problem Date Documented Date Episodic/Chronic Acute bronchitis (8 sources) Acute bronchitis with bronchospasm; Translations: [Acute bronchitis, unspecified] 11-15-2018 Episodic Anxiety disorders (20 sources) Mixed anxiety and depressive disorder; Translations: [Anxiety disorder, unspecified] Onset: 11-07-2022 04-08-2020 Chronic Aortic and peripheral arterial embolism or thrombosis (20 sources) Occlusion of aortoiliac artery; Translations: [Other arterial embolism and thrombosis of abdominal aorta] Onset: 01-21-2023 01-21-2023 Chronic Aortic; peripheral; and visceral artery aneurysms (1 source) Aneurysm of left carotid artery; Translations: [Aneurysm of carotid artery] 07-19-2024 Chronic Blindness and vision defects (20 sources) Bilateral visual impairment; Translations: [Unqualified visual loss, both eyes] Onset: 01-29-2019 01-29-2019 Chronic Cancer of prostate (20 sources) Adenocarcinoma of prostate; Translations: [Malignant neoplasm of prostate] Onset: 03-25-2023 03-25-2023 Chronic Chronic obstructive pulmonary disease and bronchiectasis (20 sources) Chronic obstructive lung disease; Translations: [Chronic obstructive pulmonary disease, unspecified] Onset: 04-29-2024 04-29-2024 Chronic Disorders of lipid metabolism (20 sources) Mixed hyperlipidemia; Translations: [Mixed hyperlipidemia] Onset: 04-08-2020 04-08-2020 Chronic Essential hypertension (20 sources) Essential hypertension; Translations: [Essential (primary) hypertension] Onset: 02-26-2021 02-26-2021 Chronic Genitourinary symptoms and ill-defined conditions (14 sources) Urinary incontinence; Translations: [Urinary incontinence, unspecified] Onset: 05-16-2023 05-16-2023 Chronic Glaucoma (20 sources) Ocular hypertension; Translations: [Ocular hypertension, bilateral] Onset: 01-29-2019 01-29-2019 Chronic Headache; including migraine (3 sources) Headache; Translations: [Headache] 03-07-2025 Episodic Headache; including migraine (1 source) Headache; including migraine; Translations: [Headache, unspecified] Onset: 03-11-2025 Hyperplasia of prostate (20 sources) Benign prostatic hyperplasia; Translations: [Hypertrophy (benign) of prostate with urinary obstruction and other lower urinary tract symptoms (LUTS)] Onset: 11-07-2022 11-12-2022 Chronic Immunizations and screening for infectious disease (6 sources) Vaccination needed; Translations: [Encounter for immunization] Episodic Intracranial injury (1 source) Hematoma of subdural space of neuraxis; Translations: [Traumatic subdural hemorrhage with loss of consciousness of unspecified duration, initial encounter] Episodic Mood disorders (1 source) Mood disorders; Translations: [Depression, unspecified] Onset: 11-07-2022 Nutritional deficiencies (20 sources) Vitamin D deficiency; Translations: [Vitamin D deficiency, unspecified] Onset: 02-26-2021 02-26-2021 Chronic Occlusion or stenosis of precerebral arteries (20 sources) Bilateral stenosis of carotid arteries; Translations: [Occlusion and stenosis of bilateral carotid arteries] Onset: 01-30-2008 Resolved: 06-21-2020 06-21-2020 Chronic Comment on above: Left internal caroti d artery 0-19% stenosis, left external carotid artery occluded at origin, reconstituted proximal, and right internal carotid artery 40-59% stenosis noted on 08/16/2020; Other aftercare (1 source) [facility] (current) use of antithrombotics/antip latelets; Translations: [terminal carman (current) use of antithrombotics/antip latelets] Onset: 11-07-2022 Episodic Other aftercare (1 source) Patient encounter status; Translations: [terminal carman (current) use of antithrombotics/antip latelets] 11-12-2022 Episodic Other and ill-defined cerebrovascular disease (20 sources) Cerebral atherosclerosis; Translations: [Cerebral atherosclerosis] Onset: 03-31-2020 03-31-2020 Chronic Other and ill-defined cerebrovascular disease (20 sources) Intracranial aneurysm; Translations: [Cerebral aneurysm, nonruptured] Onset: 01-21-2023 01-21-2023 Chronic Other and ill-defined cerebrovascular disease (2 sources) Cerebral arterial aneurysm; Translations: [Cerebral aneurysm, nonruptured] 12-31-2024 Chronic Other and ill-defined cerebrovascular disease (1 source) Cerebral aneurysm, nonruptured; Translations: [Nonruptured cerebral aneurysm (HCC)] Onset: 12-31-2024 Chronic Other and ill-defined cerebrovascular disease (1 source) Cerebral atherosclerosis; Translations: [Intracranial atherosclerosis] Onset: 03-31-2020 Chronic Other and unspecified benign neoplasm (2 sources) Lipoma of forehead; Translations: [Benign lipomatous neoplasm of skin and subcutaneous tissue of head, face and neck] 05-20-2025 Episodic Other bone disease and musculoskeletal deformities (20 [...] residual deficits] 11-12-2022 Episodic Other endocrine disorders (15 sources) Male hypogonadism; Translations: [Other testicular hypofunction] Onset: 05-16-2023 05-16-2023 Chronic Other eye disorders (20 sources) Optic cupping; Translations: [Glaucomatous optic atrophy, bilateral] Onset: 01-29-2019 01-29-2019 Chronic Other eye disorders (1 source) Glaucomatous optic atrophy, bilateral; 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] Onset: 01-29-2019 Chronic Other eye disorders (4 sources) Tear film insufficiency; Translations: [Dry eye syndrome of bilateral lacrimal glands] Episodic Other eye disorders (3 sources) Meibomian gland dysfunction of bilateral eyes; Translations: [Meibomian gland dysfunction right eye, upper and lower eyelids] Episodic Other liver diseases (6 sources) Alkaline phosphatase raised; Translations: [Abnormal levels of other serum enzymes] 03-27-2023 Episodic Other lower respiratory disease (1 source) Cough; Translations: [Acute cough] 09-27-2024 Episodic Other lower respiratory disease (3 sources) Imaging of lung abnormal ; Translations: [Other nonspecific abnormal finding of lung field] 11-01-2024 Episodic Other lower respiratory disease (1 source) Nodule of lung; Translations: [Solitary pulmonary nodule] 02-11-2025 Episodic Other lower respiratory disease (2 sources) Other nonspecific abnormal finding of lung field; Translations: [Lung nodules] Onset: 11-01-2024 Episodic Other male genital disorders (1 source) Impotence; Translations: [Erectile dysfunction] Chronic Other male genital disorders (18 sources) Male erectile dysfunction, unspecified; Translations: [Erectile dysfunction] Onset: 05-16-2023 05-16-2023 Chronic Other nutritional; endocrine; and metabolic disorders (6 sources) Weight loss; Translations: [Abnormal weight loss] 03-25-2023 Episodic Other nutritional; endocrine; and metabolic disorders (1 source) Abnormal weight loss; Translations: [Abnormal weight loss] 05-08-2024 Episodic Other skin disorders (2 sources) Mass of subcutaneous tissue of back; Translations: [Localized swelling, mass and lump, trunk] 05-20-2025 Episodic Comment on above: Likely lipoma Other skin disorders (2 sources) Epidermoid cyst; Translations: [Epidermal cyst] 05-20-2025 Episodic Other skin disorders (1 source) Localized swelling, mass and lump, trunk; Translations: [Localized swelling, mass and lump, trunk] Onset: 06-06-2025 Episodic Peripheral and visceral atherosclerosis (20 sources) Peripheral vascular disease, unspecified; Translations: [Peripheral vascular disease, unspecified] Onset: 03-25-2020 03-26-2020 Chronic Comment on above: Bilateral common michael ac artery stenting with [id number] iCAST, left external iliac artery stenting with [id number] Epic and 8x100 Viabahn , right external iliac artery stenting with [id number] Epic on 04/04/2020; Residual codes; unclassified (1 source) Presence of other specified functional implants; Translations: [Presence of other specified functional implants] Onset: 09-26-2022 Chronic Residual codes; unclassified (10 sources) Peripheral edema; Translations: [Edema, unspecified] 01-06-2020 Episodic Residual codes; unclassified (1 source) Tobacco use; Translations: [Tobacco use] Onset: 11-07-2022 Episodic Residual codes; unclassified (4 sources) Memory impairment; Translations: [Other amnesia] 03-25-2023 Episodic Residual codes; unclassified (1 source) Tobacco use and exposure - finding; Translations: [Tobacco use] 11-12-2022 Episodic Residual codes; unclassified (1 source) Tobacco user; Translations: [Tobacco use] 07-19-2024 Episodic Substance-related disorders (6 sources) Nicotine dependence, unspecified, uncomplicated; Translations: [Smoker] Onset: 09-26-2022 10-27-2024 Chronic Systemic lupus erythematosus and connective tissue disorders (1 source) Necrotizing vasculopathy, unspecified; Translations: [Necrotizing vasculopathy, unspecified (HCC)] Onset: 04-29-2025 Chronic Viral infection (1 source) Viral disease; Translations: [Viral infection, unspecified] 05-12-2024 Episodic Past or Other Problems Problem Classification Problem Date Documented Date Episodic/Chronic Abdominal hernia (15 sources) Left inguinal hernia ; Translations: [Inguinal hernia, without mention of obstruction or gangrene, unilateral or unspecified (not specified as recurrent)] Onset: 05-16-2023 05-16-2023 Episodic Acute cerebrovascular disease (20 sources) Hematoma of subdural space of neuraxis; Translations: [Subdural hematoma (HCC)] Onset: 01-29-2019 Resolved: 06-21-2020 03-25-2023 Chronic Blindness and vision defects (20 sources) Right homonymous hemianopsia; Translations: [Homonymous bilateral field defects, right side] Onset: 01-29-2019 01-29-2019 Episodic Cataract (20 sources) Bilateral senile combined form cataracts of eyes; Translations: [Combined forms of age-related cataract, bilateral] Onset: 01-29-2019 Resolved: 04-29-2023 01-29-2019 Chronic Crushing injury or internal injury (20 sources) Injury of iliac artery; Translations: [Injury of left iliac artery, initial encounter] Onset: 04-04-2020 Resolved: 09-27-2024 04-08-2020 Episodic Deficiency and other anemia (20 sources) Hemoglobinopathy; Translations: [Other hemoglobinopathies] Onset: 04-07-2020 Resolved: 04-17-2021 04-17-2021 Chronic Diabetes mellitus without complication (20 sources) Metabolic stress hyperglycemia; Translations: [Hyperglycemia, unspecified] Onset: 04-04-2020 Resolved: 04-06-2020 04-06-2020 Episodic Genitourinary symptoms and ill-defined conditions (20 sources) Nocturia; Translations: [Urgent desire to urinate] Onset: 05-16-2023 10-17-2020 Episodic Mood disorders (20 sources) Recurrent depression; Translations: [Major depressive disorder, recurrent, in remission, unspecified] Onset: 02-26-2021 Resolved: 09-27-2024 02-26-2021 Chronic Other aftercare (1 source) [facility] (current) use of anticoagulants; Translations: [terminal carman (current) use of anticoagulants] Onset: 09-26-2022 Episodic Other circulatory disease (20 sources) History of cerebral hemorrhage; Translations: [Personal history of other diseases of the circulatory system] Onset: 01-25-2019 06-21-2020 Episodic Other circulatory disease (20 sources) History of cerebrovascular accident; Translations: [Personal history of transient ischemic attack (TIA), and cerebral infarction without residual deficits] Onset: 03-31-2020 03-31-2020 Episodic Other eye disorders (20 sources) H/O: R cataract extraction; Translations: [Cataract extraction status, right eye] Onset: 11-08-2022 Episodic Other eye disorders (20 sources) H/O: L cataract extraction; Translations: [Cataract extraction status, left eye] Onset: 11-08-2022 Episodic Other lower respiratory disease (3 sources) Chronic cough; Translations: [Chronic cough] Onset: 10-27-2024 10-27-2024 Episodic Other nervous system disorders (20 sources) Postoperative pain ; Translations: [Other acute postprocedural pain] Onset: 04-04-2020 Resolved: 04-08-2020 04-08-2020 Episodic Other nutritional; endocrine; and metabolic disorders (1 source) Abnormal weight loss; Translations: [Weight loss] Onset: 10-27-2024 Episodic Other screening for suspected conditions (not mental disorders or infectious disease) (20 sources) Raised prostate specific antigen; Translations: [Patient encounter status] Onset: 05-02-2017 05-02-2017 Episodic Other skin disorders (20 sources) Facial swelling ; Translations: [Localized swelling, mass and lump, head] Onset: 04-05-2020 Resolved: 09-27-2024 04-08-2020 Episodic Residual codes; unclassified (1 source) Other specified postprocedural states; Translations: [S/P carotid endarterectomy] Onset: 03-26-2020 Episodic Respiratory failure; insufficiency; arrest (adult) (20 sources) Ventilator finding; Translations: [Dependence on respirator [ventilator] status] Onset: 04-04-2020 Resolved: 04-05-2020 04-05-2020 Chronic Unclassified (2 sources) Onset: 03-10-2024 03-10-2024 NEGATED: Highlighted row has not occurred!Residual codes; unclassified (2 sources) Disease Episodic Results Test Name Value Interpretation Reference Range Facility Cardiology Visit Reporton Cardiology Visit Report [facility] [address] [place], [place] [address] OFFICE VISIT Date of Service: 06/02/25 MR#: [id number] Acct: [id number] Name: DENNY GOMEZ Rep #: [id number] : 1955 Provider: YONG gómez Age/Sex: 69/M Location: [facility] [place] Status: Signed HPI HPI History of Present Illness Details: Mr. Gomez is a very pleasant 69-year-old gentleman who presents to the office today for a cardiovascular follow-up visit. He has a history of hypertension, hyperlipidemia, carotid artery disease s/p R AND LEFT CEA, severe peripheral vascular disease. The patient underwent lower extremity peripheral vascular evaluation at the [facility] on 02/07/2020 which demonstrated severe peripheral vascular disease with possibly subacute/acute on chronic total occlusion of the left common and majority of the left external iliac arteries as well as portions of the right and the majority of the left superficial femoral arteries. Right common femoral demonstrated diffuse atherosclerotic changes, right external iliac and 40 to 60% stenosis, right profunda is completely occluded, and right superficial femoral demonstrated multifocal severe mixed plaque with long segments of complete occlusion and multiple collateral vessels reconstituting a string-like distal right superficial femoral artery. He has undergone multiple procedures involving the lower extremities. He denies chest, arm, jaw, or neck discomfort. He denies palpitations. He denies bilateral lower extremity edema. He denies claudication. He denies shortness of breath with activity, shortness of breath at rest, orthopnea, or PND. He denies chronic cough. He denies significant, sudden weight gain. He denies lightheadedness, dizziness, near-syncope, or syncope. He denies blood in urine, blood in stool, or epistaxis. He denies fever with chills. He denies myalgia. He denies fatigue. His exercise level has remained stable. Intake Vital Signs 05/20/25 10:42 06/02/25 07:01 Height 5 ft 8 in 5 ft 8 in Weight: 151 lb 152 lb BMI 22.9 23.1 BP 118/72 110/72 Blood Pressure Location Lt brachial Lt brachial Position Sitting Sitting Respiration 18 18 Pulse 64 71 Pulse Source Monitor Temp 98.3 F Pulse Oximetry (%) 97 95 Oxygen Delivery Method room air Intake Visit Reasons: Needs cardiac clearance, OR 06/10 Stable Cleaner Required: No Is patient in pain?: No Allergies No Known Allergies Allergy (Verified 06/02/25 09:13) Medications ???Medication ???Instructions ???Recorded ???Confirmed ???Type albuterol sulfate 90 mcg/actuation 2 puff inhalation Q4H PRN PRN 06/02/25 Rx aerosol inhaler Wheezing ##1 citalopram 40 mg tablet 40 mg PO DAILY depression 02/11/20 06/02/25 History mometasone-formoterol HFA 100 2 puff inhalation BID sob 02/11/20 06/02/25 History mcg-5 mcg/actuation aerosol inhaler finasteride 5 mg tablet (Proscar) 5 mg PO DAILY 03/17/24 06/02/25 H istory tamsulosin 0.4 mg capsule (Flomax) 0.4 mg PO DAILY 03/17/24 5 History amlodipine 5 mg tablet 5 mg PO DAILY daily #90 tabs 03/2906/02/25 Rx cholecalciferol (vitamin D3) 125 125 mcg PO QDAY 03/29/25 06/02/25 History mcg (5,000 unit) capsule rosuvastatin 40 mg tablet (Crestor) 40 mg PO DAILY #90 tabs 5 06/02/25 Rx aspirin 81 mg tablet,delayed 81 mg PO QDAY #90 tabs 06/02/25 Rx release (Adult Aspirin Regimen) Ejection fraction %: 65 Have you fallen in the past year?: No PFSH Medical History (Updated 05/20/25 @ 11:42 by JOCELYNN Harmon) Lipoma of forehead Epidermal inclusion cyst Subcutaneous mass of back Family history of prostate problems High cholesterol Hypertension Glaucoma Depression Seasonal allergies Alcohol abuse 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 Elevated alkaline phosphatase level CVA (cerebral vascular accident) Pre-operative cardiovascular examination Peripheral vascular disease Carotid artery stenosis Anxiety and depression Vitamin D deficiency Essential hypertension Hyperlipidemia Enlarged prostate Allergies Surgical History Hx of bilateral cataract extraction ( 11/07/22) Carotid artery aneurysm History of left knee surgery History of tonsillectomy Right cornea abrasion History of epidermal inclusion cyst excision Family History Mother , MOTHER FROM HEART DISEASE CAD (coronary artery disease) CVA (cerebral vascular accident) Heart disease Brother Hypertension Father , FATHER FROM [place], WORKED IN THE [employer] No problems noted. Brother , AT No problems noted. Brother D (more content not included)... Normal [facility] CBC W Auto Differential pane l (Bld)on 05-27-2025 Basophils (Bld) [#/Vol] 0.06 10*3/uL Normal <0.11 [facility] Comment on above: Order Comment: Speci men Type: BLOOD SPECIMEN Ordering Facility: [facility] Address: [address] [place] [address] Performed By: #### 5 7021-8 #### [facility] CLIA [id number] [address] [place] [address] [place] Basophils/100 WBC (Bld) 0.8 % Normal [facility] Comment on above: Order Comment: Speci men Type: BLOOD SPECIMEN Ordering Facility: [facility] Address: [address] [place] [address] Performed By: #### 5 7021-8 #### [facility] CLIA [id number] [address] [place] [address] [place] Differential cell count method Nom (Bld) Auto Normal [facility] Comment on above: Order Comment: Speci men Type: BLOOD SPECIMEN Ordering Facility: [facility] Address: [address] [place] [address] Performed By: #### 5 7021-8 #### [facility] CLIA [id number] [address] [place], [place] [id number] [place] Eosinophils (Bld) [#/Vol] 0.05 10*3/uL Normal <0.46 [facility] Comment on above: Order Comment: Speci men Type: BLOOD SPECIMEN Ordering Facility: [facility] Address: [address] [place] [address] Performed By: #### 5 7021-8 #### [facility] CLIA [id number] [address] [place] [address] [place] Eosinophils/100 WBC (Bld) 0.6 % Normal [facility] Comment on above: Order Comment: Speci men Type: BLOOD SPECIMEN Ordering Facility: [facility] Address: [address] [place] [address] Performed By: #### 5 7021-8 #### [facility] CLIA [id number] [address] [place] [address] [place] Erythrocyte distribution width (RBC) [Ratio] 12.2 % Normal 11.5-15.0 [facility] Comment on above: Order Comment: Speci men Type: BLOOD SPECIMEN Ordering Facility: [facility] Address: [address] [place] [address] Performed By: #### 5 7021-8 #### [facility] CLIA [id number] [address] [place] [address] [place] Hematocrit (Bld) [Volume fraction] 41.4 % Normal 39.0-51.0 [facility] Comment on above: Order Comment: Speci men Type: BLOOD SPECIMEN Ordering Facility: [facility] Address: [address] [place] [address] Performed By: #### 5 7021-8 #### [facility] CLIA [id number] [address] [place] [address] [place] Hemoglobin (Bld) [Mass/Vol] 13.5 g/dL Normal 13.0-17.0 [facility] Comment on above: Order Comment: Speci men Type: BLOOD SPECIMEN Ordering Facility: [facility] Address: [address] [place] [address] Performed By: #### 5 7021-8 #### [facility] [facility] CLIA [id number] [address] [place] [address] [place] Immature granulocytes (Bld) [#/Vol] 0.03 10*3/uL Normal <0.10 [facility] Comment on above: Order Comment: Speci men Type: BLOOD SPECIMEN Ordering Facility: [facility] Address: [address] [place] [address] Performed By: #### 5 7021-8 #### [facility] CLIA [id number] [address] [place] [address] [place] Immature granulocytes/100 WBC (Bld) 0.4 % Normal [facility] Comment on above: Order Comment: Speci men Type: BLOOD SPECIMEN Ordering Facility: [facility] Address: [address] [place] [address] Performed By: #### 5 7021-8 #### [facility] CLIA [id number] [address] [place] [address] [place] Lymphocytes (Bld) [#/Vol] 1.86 10*3/uL Normal 1.00-4.00 [facility] Comment on above: Order Comment: Speci men Type: BLOOD SPECIMEN Ordering Facility: [facility] Address: [address] [place] [address] Performed By: #### 5 7021-8 #### [facility] CLIA [id number] [address] [place] [address] [place] Lymphocytes/100 WBC (Bld) 24.1 % Normal [facility] Comment on above: Order Comment: Speci men Type: BLOOD SPECIMEN Ordering Facility: [facility] Address: [address] [place] [address] Performed By: #### 5 7021-8 #### [facility] CLIA [id number] [address] [place] [address] [place] MCH (RBC) [Entitic mass] 32.5 pg Normal 26.0-34.0 [facility] Comment on above: Order Comment: Speci men Type: BLOOD SPECIMEN Ordering Facility: [facility] Address: [address] [place] [address] Performed By: #### 5 7021-8 #### [facility] CLIA [id number] [address] [place] [address] [place] MCHC (RBC) [Mass/Vol] 32.6 g/dL Normal 30.5-36.0 [facility] Comment on above: Order Comment: Speci men Type: BLOOD SPECIMEN Ordering Facility: [facility] Address: [address] [place] [address] Performed By: #### 5 7021-8 #### [facility] CLIA [id number] [address] [place] [address] [place] MCV (RBC) [Entitic vol] 99.5 fL Normal 80.0-100.0 [facility] Comment on above: Order Comment: Speci men Type: BLOOD SPECIMEN Ordering Facility: [facility] Address: [address] [place] [address] Performed By: #### 5 7021-8 #### [facility] CLIA [id number] [address] [place] [address] [place] Monocytes (Bld) [#/Vol] 0.57 10*3/uL Normal <0.87 [facility] Comment on above: Order Comment: Speci men Type: BLOOD SPECIMEN Ordering Facility: [facility] Address: [address] [place] [address] Performed By: #### 5 7021-8 #### [facility] CLIA [id number] [address] [place] [address] [place] Monocytes/100 WBC (Bld) 7.4 % Normal [facility] Comment on above: Order Comment: Speci men Type: BLOOD SPECIMEN Ordering Facility: [facility] Address: [address] [place] [address] Performed By: #### 5 7021-8 #### [facility] CLIA [id number] [address] [place] [address] [place] Neutrophils (Bld) [#/Vol] 5.16 10*3/uL Normal 1.45-7.50 [facility] Comment on above: Order Comment: Speci men Type: BLOOD SPECIMEN Ordering Facility: [facility] Address: [address] [place] [address] Performed By: #### 5 7021-8 #### [facility] CLIA [id number] [address] [place] [address] [place] Neutrophils/100 WBC (Bld) 66.7 % Normal [facility] Comment on above: Order Comment: Speci men Type: BLOOD SPECIMEN Ordering Facility: [facility] Address: [address] [place] [address] Performed By: #### 5 7021-8 #### [facility] CLIA [id number] [address] [place] [address] [place] Nucleated RBC (Bld) [#/Vol] 10*3/uL Normal <0.01 [facility] Comment on above: Order Comment: Speci men Type: BLOOD SPECIMEN Ordering Facility: [facility] Address: [address] [place] [address] Performed By: #### 5 7021-8 #### [facility] CLIA [id number] [address] [place] [address] [place] Nucleated RBC/100 WBC (Bld) [Ratio] 0.0 /100 WBC Normal [facility] Comment on above: Order Comment: Speci men Type: BLOOD SPECIMEN Ordering Facility: [facility] Address: [address] [place] [address] Performed By: #### 5 7021-8 #### [facility] CLIA [id number] [address] [place] [address] [place] Platelet mean volume (Bld) [Entitic vol] 10.8 fL Normal 9.0-12.7 [facility] Comment on above: Order Comment: Speci men Type: BLOOD SPECIMEN Ordering Facility: [facility] Address: [address] [place] [address] Performed By: #### 5 7021-8 #### [facility] CLIA [id number] [address] [place] [address] [place] Platelets (Bld) [#/Vol] 226 10*3/uL Normal 150-400 [facility] Comment on above: Order Comment: Speci men Type: BLOOD SPECIMEN Ordering Facility: [facility] Address: [address] [place] [address] Performed By: #### 5 7021-8 #### [facility] CLIA [id number] [address] [place] [address] [place] RBC (Bld) [#/Vol] 4.16 10*6/uL Low 4.20-6.00 [facility] Comment on above: Order Comment: Speci men Type: BLOOD SPECIMEN Ordering Facility: [facility] Address: [address] [place] [address] Performed By: #### 5 7021-8 #### [facility] CLIA [id number] [address] [place] [address] [place] WBC (Bld) [#/Vol] 7.73 10*3/uL Normal 3.70-11.00 [facility] Comment on above: Order Comment: Speci men Type: BLOOD SPECIMEN Ordering Facility: [facility] Address: [address] [place] [address] Performed By: #### 5 7021-8 #### [facility] CLIA [id number] [address] [place] [address] [place] CNOVon 05-27-2025 CNOV Office Visit (INTMWS ) DENNY GOMEZ ([id number]) 1955 M Date Time Provider Department 05/27/25 12:20 PM KESHA BOONE During your visit today, we recorded the following information about you: Pulse Respiration Blood pressure Weight 78/minute 14/minute 122/74 68.9 kg Kesha Boone APRN.[facility] 05/30/2025 7:14 AM Addendum Subjective Patient ID: Denny is a 69 year old male who presents for Pre-Op Exam (Cyst removal). HPI Denny Gomez is a 69-year-old male with HTN, lung disease, and prior stroke, presenting for preoperative evaluation for excision of a large back lipoma, a forehead lesion, and facial cysts. Denny Gomez is a 69-year-old male with a history of HTN, CVA, and lung disease, presenting for a pre-operative evaluation for lipoma and cyst removal. Pre-Operative Evaluation: - Scheduled for lipoma and cyst removal at [facility] by Dr. Thorne. - Lipoma on back has increased in size; additional lipoma on forehead and cysts on face. - Independent in daily activities. - Able to climb two flights of stairs. - No recent hospitalizations or infections. - No recent use of prednisone or steroids. - No current oxygen use. - No known cancer or kidney problems. - No known heart failure. - No known diabetes. - No known VA. - No known dyspnea. - No known tobacco use. Weight Loss: - Unintentional weight loss of 18 lbs. Stable weight currently. - Good appetite; consuming Ensure protein shakes. - Concerned about potential cancer. Hypertension: - Managed by Dr. Fermin. 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 CVA: - History of CVA with residual vision loss. Lung Disease: - History of moderate COPD/lung disease. Followed by Dr. Caroline Johnson pulmonology. Has CT chest scheduled. History of stroke with residual vision loss. No history of VA. Able to take two flight of stairs without shortness of breath or chest pain. Followed by [facility] for hypertension and hyperlipidemia. Last 14 Encounter BP Readings: Date: BP: 05/27/2025 122/74 05/16/2025 132/68 05/16/2025 120/73 04/29/2025 112/74 02/11/2025 133/73 12/21/2024 117/63 10/27/2024 113/73 09/27/2024 116/62 07/19/2024 123/63 05/12/2024 120/68 04/30/2024 120/74 04/29/2024 100/64 11/13/2023 134/70 10/27/2023 100/60 ACS NSQIP Surgical Risk Calculator 1. Age Group: 65 - 74 years [...] No 15. Current Smoker within 1 Year: No 16. History of COPD: Yes 17. Dialysis: No 18. Acute Renal Failure: No 19. BMI Class Calculation: Normal ROS Constitutional: (+) weight loss Eyes: (-) vision loss Respiratory: (-) shortness of breath Gastrointestinal: (-) decreased appetite Objective BP 122/74 Pulse 78 Resp 14 Wt 68.9 kg (151 lb 14.4 oz) SpO2 96% BMI 22.04 kg/m? Physical Exam Vitals and nursing note reviewed. Constitutional: Appearance: Normal appearance. HENT: Head: Normocephalic and atraumatic. Eyes: Conjunctiva/sclera: Conjunctivae normal. Cardiovascular: Rate and Rhythm: Normal rate and regular rhythm. Heart sounds: Normal heart sounds. Pulmonary: Effort: Pulmonary effort is normal. Breath sounds: Normal breath sounds. Abdominal: General: Bowel sounds are normal. Palpations: Abdomen is soft. Musculoskeletal: Right lower leg: No edema. Left lower leg: No edema. Skin: General: Skin is warm and dry. Comments: Large lipoma / mass near left scapula and midline spine approximately 4 x 6 inches. Small facial lipoma above left brow. Neurological: General: No focal deficit present. Mental Status: He is alert and oriented to person, place, and time. Latest Ref Rng 04/29/2025 05/27/2025 WBC 3.70 - 11.00 k/uL 8.83 7.73 RBC 4.20 - 6.00 m/uL 4.47 4.16 (L) Hemoglobin 13.0 - 17.0 g/dL 14.8 13.5 Hematocrit 39.0 - 51.0 % 44.3 41.4 MCV 80.0 - 100.0 fL 99.1 99.5 MCH 26.0 - 34.0 pg 33.1 32.5 MCHC 30.5 - 36.0 g/dL 33.4 32.6 RDW-CV 11.5 - 15.0 % 12.2 12.2 Platelet Count 150 - 400 k/uL 242 226 MPV 9.0 - 12.7 fL 11.2 10.8 Neut% % 64.0 66.7 Abs Neut (ANC) 1.45 - 7.50 k/uL 5.66 5.16 Lymph% % 27.3 24.1 Abs Lymph 1.00 - 4.00 k/uL 2.41 1.86 Allen% % 6.9 7.4 Abs Allen <0.87 k/uL 0.61 0.57 Eosin% % 0.7 0.6 Abs Eosin <0.46 k/uL 0.06 0.05 Baso% % 0.6 0.8 Abs Baso <0.11 k/uL 0.05 0.06 Immature Gran % % 0.5 0.4 IMMATURE GRANS (ABS) <0.10 k/uL 0.04 0.03 NRBC /100 WBC 0.0 (more content not included)... Normal [facility] Comprehensive metabolic 2000 panelon 05-27-2025 Albumin [Mass/Vol] 4.2 g/dL Normal 3.9-4.9 [facility] Comment on above: Order Comment: Speci men Type: BLOOD SPECIMENOrdering Facility: [facility] Address: [address] [place] [address] Performed By: #### 2 4323-8 ####[facility] [id number] [place] [address] [place] ALP [Catalytic activity/Vol] 82 U/L Normal 38-113 [facility] Comment on above: Order Comment: Speci men Type: BLOOD SPECIMENOrdering Facility: [facility] Address: [address] [place] [address] Performed By: #### 2 4323-8 ####[facility] [id number] [place] [address] [place] ALT [Catalytic activity/Vol] 35 U/L Normal 10-54 [facility] Comment on above: Order Comment: Speci men Type: BLOOD SPECIMENOrdering Facility: [facility] Address: [address] [place] [address] Performed By: #### 2 4323-8 ####[facility] [id number] [place] [address] [place] Anion gap [Moles/Vol] 12 mmol/L Normal 8-15 [facility] Comment on above: Order Comment: Speci men Type: BLOOD SPECIMENOrdering Facility: [facility] Address: [address] [place] [address] Performed By: #### 2 4323-8 ####[facility] [id number] [place] [address] [place] AST [Catalytic activity/Vol] 30 U/L Normal 14-40 [facility] Comment on above: Order Comment: Speci men Type: BLOOD SPECIMENOrdering Facility: [facility] Address: [address] [place] [address] Performed By: #### 2 4323-8 ####[facility] [id number] [place] [address] [place] Bilirubin [Mass/Vol] 0.4 mg/dL Normal 0.2-1.3 [facility] Comment on above: Order Comment: Speci men Type: BLOOD SPECIMENOrdering Facility: [facility] Address: [address] [place] [address] Performed By: #### 2 4323-8 ####[facility]CLIA [id number] [place] [address] [place] Calcium [Mass/Vol] 9.2 mg/dL Normal 8.5-10.2 [facility] Comment on above: Order Comment: Speci men Type: BLOOD SPECIMENOrdering Facility: [facility] Address: [address] [place] [address] Performed By: #### 2 4323-8 ####[facility] LABCLIA [id number] [place] [id number] [place] Chloride [Moles/Vol] 106 mmol/L Normal 98-107 [facility] Comment on above: Order Comment: Speci men Type: BLOOD SPECIMENOrdering Facility: [facility] Address: [address] [place] [address] Performed By: #### 2 4323-8 ####[facility]CLIA [id number] [place] [address] [place] CO2 [Moles/Vol] 24 mmol/L Normal 22-30 [facility] Comment on above: Order Comment: Speci men Type: BLOOD SPECIMENOrdering Facility: [facility] Address: [address] [place] [address] Performed By: #### 2 4323-8 ####[facility]CLIA [id number] [place] [address] [place] Creatinine [Mass/Vol] 0.81 mg/dL Normal 0.73-1.22 [facility] Comment on above: Order Comment: Speci men Type: BLOOD SPECIMENOrdering Facility: [facility] Address: [address] [place] [address] Performed By: #### 2 4323-8 ####[facility]CLIA [id number] [place] [address] [place] eGFRcr SerPlBld CKD-EPI 2020 95 mL/min/1.73m??? Normal >=60 [facility] Comment on above: Order Comment: Speci men Type: BLOOD SPECIMENOrdering Facility: [facility] Address: [address] [place] [address] Result Comment: Sheridan mated Glomerular Filtration Rate (eGFR) is calculated using the 2020 CKD-EPI creatinine equation. This equation utilizes serum creatinine, sex, and age as parameters. The creatinine assay has traceable calibration to isotope dilution-mass spectrometry. Refer to KDIGO guidelines for clinical interpretation. In patients with unstable renal function, e.g. those with acute kidney injury, the eGFR may not accurately reflect actual GFR. Performed By: #### 2 4323-8 ####[facility]CLIA [id number] [place] [address] [place] Glucose [Mass/Vol] 79 mg/dL Normal 74-99 [facility] Comment on above: Order Comment: Sagar guan Type: BLOOD SPECIMENOrdering Facility: [facility] Address: [address] [place] [address] Result Comment: The [place] Diabetes Association (ADA) provides guidance for cutoff values for fasting glucose and random glucose. The ADA defines fasting as no caloric intake for at least 8 hours. Fasting plasma glucose results between 100 to 125 mg/dL indicate increased risk for diabetes (prediabetes). Fasting plasma glucose results greater than or equal to 126 mg/dL meet the criteria for diagnosis of diabetes. In the absence of unequivocal hyperglycemia, results should be confirmed by repeat testing. In a patient with classic symptoms of hyperglycemia or hyperglycemic crisis, random plasma glucose results greater than or equal to 200 mg/dL meet the criteria for diagnosis of diabetes. Reference: Standards of Medical Care in Diabetes 2016, [place] Diabetes Association. Diabetes Care. 2016.39(Suppl 1). Performed By: #### 2 4323-8 ####[facility]CLIA [id number] [place] [address] [place] Potassium [Moles/Vol] 3.9 mmol/L Normal 3.7-5.1 [facility] Comment on above: Order Comment: Sagar guan Type: BLOOD SPECIMENOrdering Facility: [facility] Address: [address] [place] [id number] Performed By: #### 2 4323-8 ####[facility] LABCLIA [id number] [place] [address] [place] Protein [Mass/Vol] 6.5 g/dL Normal 6.3-8.0 [facility] Comment on above: Order Comment: Sagar guan Type: BLOOD SPECIMENOrdering Facility: [facility] Address: [address] [place] [id number] Performed By: #### 2 4323-8 ####[facility] LABCLIA [id number] [place] [address] [place] Sodium [Moles/Vol] 142 mmol/L Normal 136-144 [facility] Comment on above: Order Comment: Speci men Type: BLOOD SPECIMENOrdering Facility: [facility] Address: [address] [facility] [place] [address] Performed By: #### 2 4323-8 ####[facility] LABCLIA [id number] [place] [id number] [place] Urea nitrogen [Mass/Vol] 14 mg/dL Normal 9-24 [facility] Comment on above: Order Comment: Speci men Type: BLOOD SPECIMENOrdering Facility: [facility] Address: [address] [address] Performed By: #### 2 4323-8 ####[facility] LABCLIA [id number] [place] [id number] [place] ECG COMPLETEon 05-27-2025 ECG COMPLETE Ventricular Rate : 6 9 BPM Atrial Rate : 69 BPM P-R Interval : 126 ms QRS Duration : 108 ms Q-T Interval : 384 ms QTC Calculation(Bazett) : 411 ms Calculated P Leakey : 55 degrees Calculated R Leakey : 16 degrees Calculated T Leakey : 44 degrees NORMAL SINUS RHYTHM RSR' PATTERN IN V1 SUGGESTS INCOMPLETE RIGHT BUNDLE BRANCH BLOCK BORDERLINE ECG Confirmed by MD JENKINS QARAB ([id number]) on 05/30/2025 12:36:40 PM NAME : DENNY GOMEZ PID : [id number] : 1955 Gender : Male Race : ORD : [id number] Procedure Date : May 27 2025 12:14:13 Edit Date : May 30 2025 12:37:49 Diagnosis: NORMAL SINUS RHYTHM RSR' PATTERN IN V1 SUGGESTS INCOMPLETE RIGHT BUNDLE BRANCH BLOCK BORDERLINE ECG Confirmed by MD JENKINS QARAB ([id number]) on 05/30/2025 12:36:40 PM Test Reason : pre op Location : 185 : [facility] Overread By : MD JENKINS QARAB Edited By : MD JENKINS QARAB Referred By : , Acquired by : Trudi almonte [facility] Sheila 05-20-2025 CNPN Telephone (INTMWS) JASON,JACK ([id number]) 1955 M Date Time Provider Department 05/20/25 MALU ROWE INTMWS During your visit today, we recorded the following information about you: Caroline Rodrigues MA 05/20/2025 3:40 PM Signed Left message for patient to call office back and schedule pre-op clearance. Patient dropped form off while bringing another patient back to room. Handed me form and said he already had pre-op appointment. After reviewing chart he has not had recent pre-op appointment or EKG. Please schedule pre-op and find out when patient surgery is DA Calle Stephanie, RN 05/20/2025 3:49 PM Signed Patient's calls back and notified of below. Voices understanding. schedules patient for appointment on 05/27/2025. Ritika Mills RN Allergies As of Date: 05/20/2025 Noted Allergy Reaction SEASONAL ALLERGIES 2016 14 - Other: See Comments Comments: Sinus, runny nose Date Reviewed: 05/16/2025 Reviewed by: Caroline Johnson MD - Fully Assessed Reason for Visit: Pre-Op Exam [87] Prescriptions as of 05/20/2025 - tltmldprdwj-vyfbbmher-g ilanter (TRELEGY ELLIPTA) 200-62.5-25 mcg inhalation powder Inhale 1 puff as instructed once daily. - albuterol HFA (PROVENTIL HFA, VENTOLIN HFA) 90 mcg/actuation inhaler Inhale 2 puffs as instructed every 6 hours as needed for wheezing/shortness of breath. - varenicline (CHANTIX) 1 mg tablet Take 0.5 tablets by mouth once daily for 3 days, THEN 0.5 tablets two times a day for 4 days, THEN 1 tablet two times a day for 23 days. - varenicline (CHANTIX) 1 mg tablet Take 1 tablet by mouth two times a day. Patient should start on March 13, 2025. - rosuvastatin (CRESTOR) 40 mg tablet Take 1 tablet by mouth once daily. - citalopram (CELEXA) 40 mg tablet Take 1 tablet by mouth once daily. - amLODIPine (NORVASC) 5 mg tablet Take 1 tablet by mouth once daily. - cholecalciferol (VITAMIN D-3) 5,000 unit tab Take 5,000 Units by mouth once daily. - finasteride (PROSCAR) 5 mg tablet Take 5 mg by mouth once daily. - tamsulosin (FLOMAX) 0.4 mg Take 0.4 mg by mouth once daily. Problem List As Of Date 05/20/2025 Noted Resolved Occlusion of right carotid artery [...] forms of age-related cataract of left *01/29/2019 04/29/2023 Bilateral carotid artery stenosis [I65.23] 03/24/2020 PAD (peripheral artery disease) (HCC) [I73.9] 03/25/2020 S/P carotid endarterectomy [Z98.890] 03/25/2020 H/O ischemic left MCA stroke [Z86.73] 03/31/2020 Intracranial atherosclerosis [I67.2] 03/31/2020 Atherosclerosis of [place] artery of extremity w*04/04/2020 Iliac artery injury, left, initial encounter [S*04/04/2020 09/27/2024 On mechanically assisted ventilation (HCC) [Z99*04/04/2020 04/05/2020 Stress hyperglycemia [R73.9] 04/04/2020 04/06/2020 Post-op pain [G89.18] 04/04/2020 04/08/2020 Facial swelling [R22.0] 04/05/2020 09/27/2024 Abnormal hemoglobin (Hgb) (HCC) [D58.2] 04/07/2020 04/17/2021 Vitamin D deficiency [E55.9] 02/26/2021 Recurrent depressive disorder, in remission (HC*02/26/2021 09/27/2024 Primary open angle glaucoma (POAG) of right eye*08/30/2022 Primary open angle glaucoma (POAG) of left eye,*08/30/2022 Combined forms of age-related cataract of right*08/30/2022 09/27/2022 Hypercholesteremia [E78.00] 08/30/2022 Status post cataract extraction and insertion o*11/08/2022 Status post cataract extraction and insertion o*11/08/2022 Aortoiliac occlusive disease (HCC) [I74.09] 01/21/2023 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] 01/21/2023 Adenocarcinoma of prostate (HCC) [C61] 03/25/2023 Chronic obstructive pulmonary disease, unspecif*04/29/2024 Encounter Status:Closed by RITIKA MILLS on 05/20/25 Normal [facility] Plastic Surgery Visit Report on 05-20-2025 Plastic Surgery Visit Report [facility] Plastic [facility] Surgery [address], [address] [place] [address] OFFICE VISIT Date of Service: 05/20/25 MR#: [id number] Acct: [id number] Name: DENNY GOMEZ Rep #: [id number] : 1955 Provider: JOCELYNN Rivers Age/Sex: 69/M Location: [facility] [place] Status: Signed Pt seen evaluated w/[facility]. I personally interviewed exam the pt. I was involved in all aspects of pt's orders, interpretation of results treatment Plan for ultrasound for the upper back central mass Follow-up after ultrasound I talked to him about the risks, benefits, and alternatives to surgery for the cyst on the face and the mass on the back. Intake Vital Signs 3 03/29/25 14:41 05/20/25 10:42 Height 5 ft 8 in 5 ft 8 in Weight: 148 lb 151 lb BMI 22.5 22.9 BP 120/79 118/72 Blood Pressure Location Lt brachial Lt brachial Position Sitting Sitting Respiration 16 18 Pulse 60 64 Pulse Source Monitor Temp 98.3 F Temp Source Oral Pulse Oximetry (%) 97 Oxygen Delivery Method room air Intake Visit Reasons: LUMP ON FOREHEAD/UPPER BACK Chief Complaint: lump on forehead and upper back Accompanied by: Is patient in pain?: No Allergies No Known Allergies Allergy (Verified 05/20/25 10:43) Medications 3 ???Medication ???Instructions ???Recorded ???Confirmed ???Type albuterol sulfate 90 mcg/actuation 2 puff inhalation Q4H PRN PRN 03/29/25 Rx aerosol inhaler Wheezing ##1 citalopram 40 mg tablet 40 mg PO DAILY depression 02/11/20 05/20/25 History mometasone-formoterol HFA 100 2 puff inhalation BID sob 02/11/20 03/29/25 History mcg-5 mcg/actuation aerosol inhaler finasteride 5 mg tablet (Proscar) 5 mg PO DAILY 03/17/24 05/20/25 H istory tamsulosin 0.4 mg capsule (Flomax) 0.4 mg PO DAILY 03/17/24 5 History amlodipine 5 mg tablet 5 mg PO DAILY daily #90 tabs 03/2905/20/25 Rx cholecalciferol (vitamin D3) 125 125 mcg PO QDAY 03/29/25 03/29/25 History mcg (5,000 unit) capsule rosuvastatin 40 mg tablet (Crestor) 40 mg PO DAILY #90 tabs 5 05/20/25 Rx varenicline tartrate 1 mg tablet 1 mg PO 03/29/25 03/29/25 History Have you fallen in the past year?: No PFSH Medical History (Updated 05/20/25 @ 11:42 by JOCELYNN Harmon) Lipoma of forehead Epidermal inclusion cyst Subcutaneous mass of back Family history of prostate problems High cholesterol Hypertension Glaucoma Depression Seasonal allergies Alcohol abuse 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 Elevated alkaline phosphatase level CVA (cerebral vascular accident) Pre-operative cardiovascular examination Peripheral vascular disease Carotid artery stenosis Anxiety and depression Vitamin D deficiency Essential hypertension Hyperlipidemia Enlarged prostate Allergies Surgical History Hx of bilateral cataract extraction ( 11/07/22) Carotid artery aneurysm History of left knee surgery History of tonsillectomy Right cornea abrasion History of epidermal inclusion cyst excision Family History Mother , MOTHER FROM HEART DISEASE CAD (coronary artery disease) CVA (cerebral vascular accident) Heart disease Brother Hypertension Father , FATHER FROM BLACK LUNG, WORKED IN THE [employer] No problems noted. Brother , AT No problems noted. Brother , FROM LUNG CANCER Lung cancer Social History (Updated 05/20/25 @ 10:40 by Allison Garcia) Smoking Status: Former smoker how long ago did patient quit smoking: quit 4 months ago alcohol intake: never substance use type: does not use additional social history: pt denies vaping, denies edibles,denies marijuana use, Pt uses aspirin daily pt denies ibuprofen use, denies blood clots HPI LUMP ON FOREHEAD/UPPER BACK Details: Patient is a 69-year-old male presenting today with his and cheek, left forehead and left upper back patient. He is a former patient of Dr. Demarco and had several lesions drained many years ago. He denies drainage from any of the lesions. He noticed the lump on his back has been growing bigger and makes it uncomfortable to lay on it. He has history of hypertension, hyperlipidemia, carotid artery disease s/p left and right CEA, severe peripheral vascular disease. He take aspirin daily, not on any other antiplatelets or blood thinners. He denies diabetes, poor scarring or keloid formation. He's a former smoker, Denies fever, chills, unintentional weight loss, lymph node swelling. ROS Details General: Denies fever, chills HEENT: Denies headaches, vision changes, sore throat Ca (more content not included)... Normal [facility] 05-17-2025 [facility] Telephone (NILDA) JASON,JACK ([id number]) 1955 M Date Time Provider Department 05/17/25 INES CANO During your visit today, we recorded the following information about you: Ines Cano MSW 05/17/2025 2:56 PM Signed Sw spoke with patient in regards to trelegy inhaler cost assistance. Discussed out of pocket spend out at pharmacy. Patient notes that he does not think that he is anywhere near that out of pocket spend out. Patient notes will check with [facility] and see about how much patient has spend out at pharmacy. Sw will mail out [employer] application to patient home to review and see if interested in applying for assistance with trelegy inhaler. Allergies As of Date: 05/17/2025 Noted Allergy Reaction SEASONAL ALLERGIES 2016 14 - Other: See Comments Comments: Sinus, runny nose Date Reviewed: 05/16/2025 Reviewed by: Caroline Johnson MD - Fully Assessed Prescriptions as of 05/20/2025 - trjvurtrxjx-oyrztmmwz-b ilanter (TRELEGY ELLIPTA) 200-62.5-25 mcg inhalation powder Inhale 1 puff as instructed once daily. - albuterol HFA (PROVENTIL HFA, VENTOLIN HFA) 90 mcg/actuation inhaler Inhale 2 puffs as instructed every 6 hours as needed for wheezing/shortness of breath. - varenicline (CHANTIX) 1 mg tablet Take 0.5 tablets by mouth once daily for 3 days, THEN 0.5 tablets two times a day for 4 days, THEN 1 tablet two times a day for 23 days. - varenicline (CHANTIX) 1 mg tablet Take 1 tablet by mouth two times a day. Patient should start on March 13, 2025. - rosuvastatin (CRESTOR) 40 mg tablet Take 1 tablet by mouth once daily. - citalopram (CELEXA) 40 mg tablet Take 1 tablet by mouth once daily. - amLODIPine (NORVASC) 5 mg tablet Take 1 tablet by mouth once daily. - cholecalciferol (VITAMIN D-3) 5,000 unit tab Take 5,000 Units by mouth once daily. - finasteride (PROSCAR) 5 mg tablet Take 5 mg by mouth once daily. - tamsulosin (FLOMAX) 0.4 mg Take 0.4 mg by mouth once daily. Problem List As Of Date 05/17/2025 Noted Resolved Occlusion of right carotid artery [...] forms of age-related cataract of left *01/29/2019 04/29/2023 Bilateral carotid artery stenosis [I65.23] 03/24/2020 PAD (peripheral artery disease) (HCC) [I73.9] 03/25/2020 S/P carotid endarterectomy [Z98.890] 03/25/2020 H/O ischemic left MCA stroke [Z86.73] 03/31/2020 Intracranial atherosclerosis [I67.2] 03/31/2020 Atherosclerosis of [place] artery of extremity w*04/04/2020 Iliac artery injury, left, initial encounter [S*04/04/2020 09/27/2024 On mechanically assisted ventilation (HCC) [Z99*04/04/2020 04/05/2020 Stress hyperglycemia [R73.9] 04/04/2020 04/06/2020 Post-op pain [G89.18] 04/04/2020 04/08/2020 Facial swelling [R22.0] 04/05/2020 09/27/2024 Abnormal hemoglobin (Hgb) (HCC) [D58.2] 04/07/2020 04/17/2021 Vitamin D deficiency [E55.9] 02/26/2021 Recurrent depressive disorder, in remission (HC*02/26/2021 09/27/2024 Primary open angle glaucoma (POAG) of right eye*08/30/2022 Primary open angle glaucoma (POAG) of left eye,*08/30/2022 Combined forms of age-related cataract of right*08/30/2022 09/27/2022 Hypercholesteremia [E78.00] 08/30/2022 Status post cataract extraction and insertion o*11/08/2022 Status post cataract extraction and insertion o*11/08/2022 Aortoiliac occlusive disease (HCC) [I74.09] 01/21/2023 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 Respiratory [place] Note Patient name: Denny Gomez PCP: Malu Rowe MD Referring Physician: Moises Pendleton MD CC: COPD, lung nodules HPI: Denny Gomez 69 year old male current smoker with PMH significant for HTN, Paget's disease, h/o stroke (occipital ICH, and MCA stroke), PAD s/p CEA, COPD, BPH, recently seen by Dr. Pendleton in [place]. Transferring care since lives in [place]. Recommendation at his initial visit was updated PFTs, Trelegy Ellipta and repeat CT in one year for small stable pulmonary nodules. Mr. Gomez is not taking any inhaled therapy, citing cost of Trelegy is prohibitive. Only symptom is with exertion. No significant cough, mucus production or wheezing. He does have problems with seasonal allergies with pollen being his most problematic allergen. Include nasal congestion and drainage. He is currently smoking with 1 pack lasting 4 days. He is trying to quit. Past he was able to quit for 2 months. DATA: RESPIRATORY THERAPY SIX MINUTE WALK TEST OXIMETRY REPORT Six Minute Walk Test for This Encounter Oxygen Device Liters FIO2 SpO2% HR Activity Feet Speed (MPH) R/A 98 69 Resting R/A 98 93 Six Minute Walk 690 1.3 R/A 99 73 Recovery PFT: Moderate obstruction with improvement postbronchodilator, air trapping, mild reduction in diffusing capacity Imaging / Diagnostic Studies: DATE OF EXAM: Nov 01 2024 3:46PM [facility] 0541 - CT CHEST IVCON / PROCEDURE REASON: Abnormality of lung on CXR IMPRESSION: 1. Couple of stable 2 to 3 mm pulmonary nodules dating back to 2017. 2. No additional pulmonary nodules or suspect intrathoracic lymphadenopathy. Minimal right upper lobe emphysema, several subcentimeter pulmonary nodules PAST MEDICAL HISTORY Diagnosis Date Abnormal hemoglobin (Hgb) 04/07/2020 Hx: POD2 labs with drop in hemoglobin to 8.4 from baseline 10.6; transfused 1u PRBC POD2 A: asymptomatic, no associated tachycardia or hypotension P: f/u AM CBC Anxiety and depression BPH (benign prostatic hyperplasia) Carotid artery stenosis, asymptomatic, left COPD (chronic obstructive pulmonary disease) (HCC) Critical lower limb ischemia (HCC) Essential hypertension History: home Norvasc, lisinopril Assessment: MAP 65-85 mmHg with goals of normotension Plan: Resumed amlodipine, holding lisinopril Facial swelling 04/05/2020 Hx: facial swelling noted this morning A: no stridor or dysphagia P: Decadron 8mg q6 for 4 doses complete, facial swelling resolved Will continue to monitor Iliac artery injury, left, initial encounter 04/04/2020 History: post op, iliac rupture during OR Assessment: 04/04/2020 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 BP control . 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 albuterol HFA (PROVENTIL HFA, VENTOLIN HFA) 90 mcg/actuation inhaler Inhale 2 puffs as instructed every 6 hours as needed for wheezing/shortness of breath. varenicline (CHANTIX) 1 mg tablet Take 0.5 tablets by mouth once daily for 3 days, THEN 0.5 tablets two times a day for 4 days, THEN 1 tablet two times a day for 23 days. rosuvastatin (CRESTOR) 40 mg tablet Take 1 tablet by mouth once daily. citalopram (CELEXA) 40 mg tablet Take 1 tablet by mouth once daily. amLODIPine (NORVASC) 5 mg tablet Take 1 tablet by mouth once daily. cholecalciferol (VITAMIN D-3) 5,000 unit tab Take 5,000 Units by mouth once daily. finasteride (PROSCAR) 5 mg tablet Take 5 mg by mouth once daily. tamsulosin (FLOMAX) 0.4 mg Take 0.4 mg by mouth once daily. varenicline (CHANTIX) 1 mg tablet Take 1 tablet by mouth two times a day. Patient should start on March 13, 2025. SOCIAL HISTORY[1] Worked at [employer] for 5 years Pets: None FAMILY HISTORY Problem Relation Age of Onset Heart Mother Glaucoma Brother Heart Brother Ca (more content not included)... Normal [facility] LUNG DIFFUSION CAPACITY (JAGJIT O)on 05-16-2025 LUNG DIFFUSION CAPACITY (DLCO) [facility] [address] 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 No contraindications or sensitivities were noted. Meds taken: No inhaled respiratory medications taken before testing. 4 puffs Albuterol (360 mcg) delivered by MDI via holding chamber. HR pre = 69/min, HR post = /min. Lung Volumes are repeatable x3. Current ATS/ERS acceptability and repeatability standards for DLCO met with 2 acceptable maneuvers. PRE-BRONCHODILATOR: The two largest FVCs were not repeatable. The two largest FEV1s were repeatable. Early termination of expiration and no valid expiratory plateau per ATS/ERS guidelines. POST-BRONCHODILATOR: Current ATS/ERS acceptability and repeatability standards for spirometry met. Start of test and EOFE criteria met. IMPRESSION: Spirometry indicates moderate obstruction. Positive bronchodilator response. Elevated lung volumes (RV and/or RV/TLC) indicate air trapping. The diffusing capacity (uncorrected for hemoglobin) is reduced. Electronically Signed On 05-16-2025 16:18:46 EDT by Caroline Johnson MD ID: [id number] Name: DENNY GOMEZ Race: Black or Ht: 69.61 in Wt: 150.00 lbs Age: 69 Gender: Male : 1955 Dx: Centrilobular emphysema Smoking Hx: Non-smoker Doctor: MOISES PENDLETON Test Date: 05/16/2025 Site: [facility] Mart: Lakeisha Rosales PRE-BRONCH POST-BRONCH Jerzy LLN Pred ULN %Pred ZScore Jerzy %Pred %Chg ZScore SPIROMETRY FVC 3.60 2.95 3.97 5.01 90 -0.60 4.46 112 21 0.78 FEV1 1.91 2.19 3.00 3.76 63 -2.18 2.13 71 7 -1.75 FEV1/FVC 0.53 0.63 0.77 0.87 69 -2.62 0.48 62 -9 -3.03 FEFMax 4.45 5.25 7.88 10.50 56 -2.15 4.88 61 9 -1.88 FEF50 0.80 1.83 3.96 6.08 20 -2.45 1.37 34 72 -2.00 FIF50 3.86 4.69 21 FEF50/FIF50 0.21 90-100 0.29 41 FIVC 3.56 3.77 5 IJH06-25 0.65 0.74 2.08 4.10 31 -1.80 1.18 56 82 -1.00 ExpiredTime 10.97 15.64 42 TimeToFEFMax 0.11 0.07 -39 COREY 0.07 0.08 13 VolExtrap% 2 2 -8 LUNG VOLUMES FRC(Pleth) 5.24 2.65 3.81 5.26 137 1.63 ERV 1.36 1.32 103 RV(Pleth) 4.10 1.49 2.52 3.75 162 2.07 SVC 4.02 2.95 3.97 5.01 101 0.08 IC 2.58 2.65 97 TLC(Pleth) 7.66 5.57 7.05 8.55 108 0.67 RV/TLC(Pleth) 54 24 36 47 150 2.49 LUNG DIFFUSION DLCOunc 16.88 18.71 25.46 33.52 66 -2.15 DLCOStdPB 16.58 18.71 25.46 33.52 65 -2.24 VA 6.48 5.10 6.33 7.66 102 0.19 Kco 2.56 3.00 4.04 5.19 63 -2.38 Comments: Medications and Allergies were reviewed for possible drug interactions per policy. No contraindications or sensitivities were noted. Meds taken: No inhaled respiratory medications taken before testing. 4 puffs Albuterol (360 mcg) delivered by MDI via holding chamber. HR pre = 69/min, HR post = /min. Lung Volumes are repeatable x3. Current ATS/ERS acceptability and repeatability standards for DLCO met with 2 acceptable maneuvers. PRE-BRONCHODILATOR: The two largest FVCs were not repeatable. The two largest FEV1s were repeatable. Early termination of expiration and no valid expiratory plateau per ATS/ERS guidelines. POST-BRONCHODILATOR: Current ATS/ERS acceptability and repeatability standards for spirometry met. Start of test and EOFE criteria met. Normal [facility] LUNG VOLUMESon 05-16-2025 LUNG VOLUMES [facility] [address] 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 No contraindications or sensitivities were noted. Meds taken: No inhaled respiratory medications taken before testing. 4 puffs Albuterol (360 mcg) delivered by MDI via holding chamber. HR pre = 69/min, HR post = /min. Lung Volumes are repeatable x3. Current ATS/ERS acceptability and repeatability standards for DLCO met with 2 acceptable maneuvers. PRE-BRONCHODILATOR: The two largest FVCs were not repeatable. The two largest FEV1s were repeatable. Early termination of expiration and no valid expiratory plateau per ATS/ERS guidelines. POST-BRONCHODILATOR: Current ATS/ERS acceptability and repeatability standards for spirometry met. Start of test and EOFE criteria met. IMPRESSION: Spirometry indicates moderate obstruction. Positive bronchodilator response. Elevated lung volumes (RV and/or RV/TLC) indicate air trapping. The diffusing capacity (uncorrected for hemoglobin) is reduced. Electronically Signed On 05-16-2025 16:18:46 EDT by Caroline Johnson MD ID: [id number] Name: DENNY GOMEZ Race: Black or Ht: 69.61 in Wt: 150.00 lbs Age: 69 Gender: Male : 1955 Dx: Centrilobular emphysema Smoking Hx: Non-smoker Doctor: MOISES PENDLETON Test Date: 05/16/2025 Site: Tech: Lakeisha Rosales PRE-BRONCH POST-BRONCH Jerzy LLN Pred ULN %Pred ZScore Jerzy %Pred %Chg ZScore SPIROMETRY FVC 3.60 2.95 3.97 5.01 90 -0.60 4.46 112 21 0.78 FEV1 1.91 2.19 3.00 3.76 63 -2.18 2.13 71 7 -1.75 FEV1/FVC 0.53 0.63 0.77 0.87 69 -2.62 0.48 62 -9 -3.03 FEFMax 4.45 5.25 7.88 10.50 56 -2.15 4.88 61 9 -1.88 FEF50 0.80 1.83 3.96 6.08 20 -2.45 1.37 34 72 -2.00 FIF50 3.86 4.69 21 FEF50/FIF50 0.21 90-100 0.29 41 FIVC 3.56 3.77 5 NYE67-85 0.65 0.74 2.08 4.10 31 -1.80 1.18 56 82 -1.00 ExpiredTime 10.97 15.64 42 TimeToFEFMax 0.11 0.07 -39 COREY 0.07 0.08 13 VolExtrap% 2 2 -8 LUNG VOLUMES FRC(Pleth) 5.24 2.65 3.81 5.26 137 1.63 ERV 1.36 1.32 103 RV(Pleth) 4.10 1.49 2.52 3.75 162 2.07 SVC 4.02 2.95 3.97 5.01 101 0.08 IC 2.58 2.65 97 TLC(Pleth) 7.66 5.57 7.05 8.55 108 0.67 RV/TLC(Pleth) 54 24 36 47 150 2.49 LUNG DIFFUSION DLCOunc 16.88 18.71 25.46 33.52 66 -2.15 DLCOStdPB 16.58 18.71 25.46 33.52 65 -2.24 VA 6.48 5.10 6.33 7.66 102 0.19 Kco 2.56 3.00 4.04 5.19 63 -2.38 Comments: Medications and Allergies were reviewed for possible drug interactions per policy. No contraindications or sensitivities were noted. Meds taken: No inhaled respiratory medications taken before testing. 4 puffs Albuterol (360 mcg) delivered by MDI via holding chamber. HR pre = 69/min, HR post = /min. Lung Volumes are repeatable x3. Current ATS/ERS acceptability and repeatability standards for DLCO met with 2 acceptable maneuvers. PRE-BRONCHODILATOR: The two largest FVCs were not repeatable. The two largest FEV1s were repeatable. Early termination of expiration and no valid expiratory plateau per ATS/ERS guidelines. POST-BRONCHODILATOR: Current ATS/ERS acceptability and repeatability standards for spirometry met. Start of test and EOFE criteria met. 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 No contraindications or sensitivities were noted. Meds taken: No inhaled respiratory medications taken before testing. 4 puffs Albuterol (360 mcg) delivered by MDI via holding chamber. HR pre = 69/min, HR post = /min. Lung Volumes are repeatable x3. Current ATS/ERS acceptability and repeatability standards for DLCO met with 2 acceptable maneuvers. PRE-BRONCHODILATOR: The two largest FVCs were not repeatable. The two largest FEV1s were repeatable. Early termination of expiration and no valid expiratory plateau per ATS/ERS guidelines. POST-BRONCHODILATOR: Current ATS/ERS acceptability and repeatability standards for spirometry met. Start of test and EOFE criteria met. IMPRESSION: Spirometry indicates moderate obstruction. Positive bronchodilator response. Elevated lung volumes (RV and/or RV/TLC) indicate air trapping. The diffusing capacity (uncorrected for hemoglobin) is reduced. Electronically Signed On 05-16-2025 16:18:46 EDT by Caroline Johnson MD ID: [id number] Name: DENNY GOMEZ Race: Black or Ht: 69.61 in Wt: 150.00 lbs Age: 69 Gender: Male : 1955 Dx: Centrilobular emphysema Smoking Hx: Non-smoker Doctor: MOISES PENDLETON Test Date: 05/16/2025 Site: Tech: Lakeisha Rosales PRE-BRONCH POST-BRONCH Jerzy LLN Pred ULN %Pred ZScore Jerzy %Pred %Chg ZScore SPIROMETRY FVC 3.60 2.95 3.97 5.01 90 -0.60 4.46 112 21 0.78 FEV1 1.91 2.19 3.00 3.76 63 -2.18 2.13 71 7 -1.75 FEV1/FVC 0.53 0.63 0.77 0.87 69 -2.62 0.48 62 -9 -3.03 FEFMax 4.45 5.25 7.88 10.50 56 -2.15 4.88 61 9 -1.88 FEF50 0.80 1.83 3.96 6.08 20 -2.45 1.37 34 72 -2.00 FIF50 3.86 4.69 21 FEF50/FIF50 0.21 90-100 0.29 41 FIVC 3.56 3.77 5 JJU33-34 0.65 0.74 2.08 4.10 31 -1.80 1.18 56 82 -1.00 ExpiredTime 10.97 15.64 42 TimeToFEFMax 0.11 0.07 -39 COREY 0.07 0.08 13 VolExtrap% 2 2 -8 LUNG VOLUMES FRC(Pleth) 5.24 2.65 3.81 5.26 137 1.63 ERV 1.36 1.32 103 RV(Pleth) 4.10 1.49 2.52 3.75 162 2.07 SVC 4.02 2.95 3.97 5.01 101 0.08 IC 2.58 2.65 97 TLC(Pleth) 7.66 5.57 7.05 8.55 108 0.67 RV/TLC(Pleth) 54 24 36 47 150 2.49 LUNG DIFFUSION DLCOunc 16.88 18.71 25.46 33.52 66 -2.15 DLCOStdPB 16.58 18.71 25.46 33.52 65 -2.24 VA 6.48 5.10 6.33 7.66 102 0.19 Kco 2.56 3.00 4.04 5.19 63 -2.38 Comments: Medications and Allergies were reviewed for possible drug interactions per policy. No contraindications or sensitivities were noted. Meds taken: No inhaled respiratory medications taken before testing. 4 puffs Albuterol (360 mcg) delivered by MDI via holding chamber. HR pre = 69/min, HR post = /min. Lung Volumes are repeatable x3. Current ATS/ERS acceptability and repeatability standards for DLCO met with 2 acceptable maneuvers. PRE-BRONCHODILATOR: The two largest FVCs were not repeatable. The two largest FEV1s were repeatable. Early termination of expiration and no valid expiratory plateau per ATS/ERS guidelines. POST-BRONCHODILATOR: Current ATS/ERS acceptability and repeatability standards for spirometry met. Start of test and EOFE criteria met. FVC_PRE (L) : 3.60 L FVC_POST (L) : 4.46 L FVC_PRED (L) : 3.97 L FVC_LLN (L) : 2.95 L FVC_ULN (L) : 5.01 L FEV1_PRE (L) : 1.91 L FEV1_POST (L) : 2.13 L FEV1_PRED (L) : 3.00 L FEV1_LLN (L) : 2.19 L FEV1_ULN (L) : 3.76 L FEV1/FVC_PRE (%) : 53 % FEV1/FVC_POST (%) : 48 % FEV1/FVC_PRED (%) : 77 % FEV1/FVC_LLN (%) : 63 % VFX09_FBM (L/S) : 2.04 L/S THU55_SAPH (L/S) : 2.65 L/S PJK06_PKS (L/S) : 0.25 L/S DRR49_JMHB (L/S) : 0.54 L/S OQV36_LVNF (L/S) : 0.48 L/S MCP30_UDB (L/S) : 0.15 L/S USG18_GUI (L/S) : 1.41 L/S FBM24-63%_PRE (L/S) : 0.65 L/S XOO45-80%_POST (L/S) : 1.18 L/S VHH94-00%_PRED (L/S) : 2.08 L/S RVU94-35%_LLN (L/S) : 0.74 L/S PEF_PRE (L/S) : 4.45 L/S PEF_POST (L/S) : 4.88 L/S PEFMAX_LLN (L/S) : 5.25 L/S PEFMAX_ULN (L/S) : 10.50 L/S VC BOX (L) : 4.02 L SVC_PRED (L) : 3.97 L/S SVC_LLN (L) : 2.95 L/S SVC_ULN (L/S) : 5.01 L/S IC BOX (L) : 2.58 L IC_PRED (L) : 2.65 L/S ERV BOX (L) : 1.36 L ERV_PREDICTED (L) : 1.32 L/S DLCO (ML/MIN/MMHG) : 16.88 ml/min/mmHg DLCO_PRED (ML/MIN/MMHG) : 25.46 ml/min/mmHg DLCO_LLN(ML/MIN/MMHG) : 18.71 ml/min/mmHg DLCO_ULN (ML/MIN/MMHG) : 33.52 ml/min/mmHg FET_PRE (S) : 10.97 S FET_POST (S) : 15.64 S FRC BOX (L) : 5.24 L RV BOX (L) : 4.10 L RV_PLETH_PRED (L) : 2.52 L TLC BOX (L) : 7.66 L TLC_PLETH_PRED (L) : 7.05 L RV/TLC BOX (%) : 54 % RV_TLC_PLETH_PRED (%) : 36 % VA (L) : 6.48 L VA_PRD (L) : 6.33 L DLCO/VA (ML/MIN/MMHG/L) : 0.03 ml/min/mmHg/L (more content not included)... Normal [facility] 25(OH)D3 Radhal-mCncon 2024 25-hydroxyvitamin D3 [Mass/Vol] 37.5 ng/mL Normal 31.0-80.0 [facility] Comment on above: Order Comment: Speci men Type: BLOOD SPECIMEN Ordering Facility: [facility] Address: [address] [place] [address] Result Comment: Clas sification of 25 [place] Vitamin D status: Deficiency/Insufficiency: < or = 30 ng/ml. Sufficiency/Optimal Levels: 31-80 ng/mL Toxicity: > 100 ng/mL. Test performed by chemiluminescent immunoassay. Performed By: #### 5 [id number] #### [facility] CLIA [id number] [address] [place] [address] [place] CBC W Auto Differential pane l (Bld)on 04-29-2025 Basophils (Bld) [#/Vol] 0.05 10*3/uL Normal <0.11 [facility] Comment on above: Order Comment: Speci men Type: BLOOD SPECIMEN Ordering Facility: [facility] Address: [address] [place] [address] Performed By: #### 5 7021-8 #### [facility] CLIA [id number] [address] [place] [address] [place] Basophils/100 WBC (Bld) 0.6 % Normal [facility] Comment on above: Order Comment: Speci men Type: BLOOD SPECIMEN Ordering Facility: [facility] Address: [address] [place] [address] Performed By: #### 5 7021-8 #### [facility] CLIA [id number] [address] [place] [address] [place] Differential cell count method Nom (Bld) Auto Normal [facility] Comment on above: Order Comment: Speci men Type: BLOOD SPECIMEN Ordering Facility: [facility] Address: [address] [place] [address] Performed By: #### 5 7021-8 #### [facility] CLIA [id number] [address] [place] [address] [place] Eosinophils (Bld) [#/Vol] 0.06 10*3/uL Normal <0.46 [facility] Comment on above: Order Comment: Speci men Type: BLOOD SPECIMEN Ordering Facility: [facility] Address: [address] [place] [address] Performed By: #### 5 7021-8 #### [facility] CLIA [id number] [address] [place] [address] [place] Eosinophils/100 WBC (Bld) 0.7 % Normal [facility] Comment on above: Order Comment: Speci men Type: BLOOD SPECIMEN Ordering Facility: [facility] Address: [address] [place] [address] Performed By: #### 5 7021-8 #### [facility] CLIA [id number] [address] [place] [address] [place] Erythrocyte distribution width (RBC) [Ratio] 12.2 % Normal 11.5-15.0 [facility] Comment on above: Order Comment: Speci men Type: BLOOD SPECIMEN Ordering Facility: [facility] Address: [address] [place] [address] Performed By: #### 5 7021-8 #### [facility] CLIA [id number] [address] [place] [address] [place] Hematocrit (Bld) [Volume fraction] 44.3 % Normal 39.0-51.0 [facility] Comment on above: Order Comment: Speci men Type: BLOOD SPECIMEN Ordering Facility: [facility] Address: [address] [place] [address] Performed By: #### 5 7021-8 #### [facility] CLIA [id number] [address] [place] [address] [place] Hemoglobin (Bld) [Mass/Vol] 14.8 g/dL Normal 13.0-17.0 [facility] Comment on above: Order Comment: Speci men Type: BLOOD SPECIMEN Ordering Facility: [facility] Address: [address] [place] [address] Performed By: #### 5 7021-8 #### [facility] CLIA [id number] [address] [place] [address] [place] Immature granulocytes (Bld) [#/Vol] 0.04 10*3/uL Normal <0.10 [facility] Comment on above: Order Comment: Speci men Type: BLOOD SPECIMEN Ordering Facility: [facility] Address: [address] [place] [address] Performed By: #### 5 7021-8 #### [facility] CLIA [id number] [address] [place] [address] [place] Immature granulocytes/100 WBC (Bld) 0.5 % Normal [facility] Comment on above: Order Comment: Speci men Type: BLOOD SPECIMEN Ordering Facility: [facility] Address: [address] [place] [address] Performed By: #### 5 7021-8 #### [facility] CLIA [id number] [address] [place] [address] [place] Lymphocytes (Bld) [#/Vol] 2.41 10*3/uL Normal 1.00-4.00 [facility] Comment on above: Order Comment: Speci men Type: BLOOD SPECIMEN Ordering Facility: [facility] Address: [address] [place] [address] Performed By: #### 5 7021-8 #### [facility] CLIA [id number] [address] [place] [address] [place] Lymphocytes/100 WBC (Bld) 27.3 % Normal [facility] Comment on above: Order Comment: Speci men Type: BLOOD SPECIMEN Ordering Facility: [facility] Address: [address] [place] [address] Performed By: #### 5 7021-8 #### [facility] CLIA [id number] [address] [place] [address] [place] MCH (RBC) [Entitic mass] 33.1 pg Normal 26.0-34.0 [facility] Comment on above: Order Comment: Speci men Type: BLOOD SPECIMEN Ordering Facility: [facility] Address: [address] [place] [address] Performed By: #### 5 7021-8 #### [facility] CLIA [id number] [address] [place] [address] [place] MCHC (RBC) [Mass/Vol] 33.4 g/dL Normal 30.5-36.0 [facility] Comment on above: Order Comment: Speci men Type: BLOOD SPECIMEN Ordering Facility: [facility] Address: [address] [place] [address] Performed By: #### 5 7021-8 #### [facility] CLIA [id number] [address] [place] [address] [place] MCV (RBC) [Entitic vol] 99.1 fL Normal 80.0-100.0 [facility] Comment on above: Order Comment: Speci men Type: BLOOD SPECIMEN Ordering Facility: [facility] Address: [address] [place] [address] Performed By: #### 5 7021-8 #### [facility] CLIA [id number] [address] [place] [address] [place] Monocytes (Bld) [#/Vol] 0.61 10*3/uL Normal <0.87 [facility] Comment on above: Order Comment: Speci men Type: BLOOD SPECIMEN Ordering Facility: [facility] Address: [address] [place] [address] Performed By: #### 5 7021-8 #### [facility] CLIA [id number] [address] [place] [address] [place] Monocytes/100 WBC (Bld) 6.9 % Normal [facility] Comment on above: Order Comment: Speci men Type: BLOOD SPECIMEN Ordering Facility: [facility] Address: [address] [place] [address] Performed By: #### 5 7021-8 #### [facility] CLIA [id number] [address] [place] [address] [place] Neutrophils (Bld) [#/Vol] 5.66 10*3/uL Normal 1.45-7.50 [facility] Comment on above: Order Comment: Speci men Type: BLOOD SPECIMEN Ordering Facility: [facility] Address: [address] [place] [address] Performed By: #### 5 7021-8 #### [facility] CLIA [id number] [address] [place] [address] [place] Neutrophils/100 WBC (Bld) 64.0 % Normal [facility] Comment on above: Order Comment: Speci men Type: BLOOD SPECIMEN Ordering Facility: [facility] Address: [address] [place] [address] Performed By: #### 5 7021-8 #### [facility] CLIA [id number] [address] [place] [address] [place] Nucleated RBC (Bld) [#/Vol] 10*3/uL Normal <0.01 [facility] Comment on above: Order Comment: Speci men Type: BLOOD SPECIMEN Ordering Facility: [facility] Address: [address] [place] [address] Performed By: #### 5 7021-8 #### [facility] CLIA [id number] [address] [place] [address] [place] Nucleated RBC/100 WBC (Bld) [Ratio] 0.0 /100 WBC Normal [facility] Comment on above: Order Comment: Speci men Type: BLOOD SPECIMEN Ordering Facility: [facility] Address: [address] [place] [address] Performed By: #### 5 7021-8 #### [facility] CLIA [id number] [address] [place] [address] [place] Platelet mean volume (Bld) [Entitic vol] 11.2 fL Normal 9.0-12.7 [facility] Comment on above: Order Comment: Speci men Type: BLOOD SPECIMEN Ordering Facility: [facility] Address: [address] [place] [address] Performed By: #### 5 7021-8 #### [facility] CLIA [id number] [address] [place], [place] [id number] [place] Platelets (Bld) [#/Vol] 242 10*3/uL Normal 150-400 [facility] Comment on above: Order Comment: Speci men Type: BLOOD SPECIMEN Ordering Facility: [facility] Address: [address] [place] [address] Performed By: #### 5 7021-8 #### [facility] CLIA [id number] [address] [place] [address] [place] RBC (Bld) [#/Vol] 4.47 10*6/uL Normal 4.20-6.00 [facility] Comment on above: Order Comment: Speci men Type: BLOOD SPECIMEN Ordering Facility: [facility] Address: [address] [place] [address] Performed By: #### 5 7021-8 #### [facility] CLIA [id number] [address] [place] [address] [place] WBC (Bld) [#/Vol] 8.83 10*3/uL Normal 3.70-11.00 [facility] Comment on above: Order Comment: Speci men Type: BLOOD SPECIMEN Ordering Facility: [facility] Address: [address] [place], [place] [address] Performed By: #### 5 7021-8 #### [facility] CLIA [id number] [address] [place] [address] OF [facility] CNOVon 04-29-2025 CNOV Office Visit (INTMWS ) DENNY GOMEZ ([id number]) 1955 M Date Time Provider Department 04/29/25 1:40 PM KESHA BOONE INTMWS During your visit today, we recorded the following information about you: Pulse Respiration Blood pressure Weight 89/minute 20/minute 112/74 68.2 kg Height 1.746 m Kesha Boone, [employer] 04/29/2025 2:10 PM Addendum - Complete the lab work ordered today before you leave the clinic. - To help regain weight, increase your calorie and protein intake: eat larger meals or add snacks, and consider high-protein drinks such as Ensure or Boost or a yogurt smoothies - If you need any medication refills before your next visit, call our office. Screening schedule The following prevention plan is recommended: Advance Directive Discussion due on 08/04/2024 Medicare Advantage Annual Wellness Visit Never done Shingrix Vaccine(2 of 2) due on 03/24/2025 Influenza Vaccine(1) due on 04/04/2025 Colorectal Cancer Screening due on 05/03/2025 WHAT YOU CAN DO TO PREVENT FALLS Many falls can be prevented. By making some changes, you can lower your chances of falling. Four things YOU can do to prevent falls for you* and your caregiver 1. Begin a regular exercise program Exercise is one of the most important ways to lower your chances of falling. It makes you stronger and helps you feel better. Exercises that improve balance and coordination (like Cyrus Chi) are the most helpful. Lack of exercise leads to weakness and increases your chances of falling. Ask your doctor or health care provider about the best type of exercise program for you. 2. Have your health care provider review your medicines Have your doctor or pharmacist review all the medicines you take, even adhi-sxb-kxihhbs medicines. As you get older, the way medicines work in your body can change. Some medicines, or combinations of medicines, can make you sleepy or dizzy and can cause you to fall. 3. Have your vision checked Have your eyes checked by an eye doctor at least once a year. You may be wearing the wrong glasses or have a condition like glaucoma or cataracts that limits your vision. Poor vision can increase your chances of falling. 4. Make your home safer About half of all falls happen at home. To make your home safer: Remove things you can trip over (like papers, books, clothes, and shoes) from stairs and places where you walk. Remove small throw rugs or use double-sided tape to keep the rugs from slipping. Keep items you use often in cabinets you can reach easily without using a step stool. Have grab bars put in next to your toilet and in the tub or shower. Use non-slip mats in the bathtub and on shower floors. Improve the lighting in your home. As you get older, you need brighter lights to see well. Hang light-weight curtains or shades to reduce glare. Have handrails and lights put in on all staircases. Wear shoes both inside and outside the house. Avoid going barefoot or wearing slippers. For more information, contact: Centers for Disease Control and Prevention www.cdc.gov/injury * This information may not apply if you have certain medical conditions. Kesha Boone, [employer] 04/29/2025 2:19 PM Signed Denny Gomez is a 69 year old male here for a Medicare wellness visit. Medicare Health Risk Assessment General Health good Exercise: Minutes/Day walking 1 mile Exercise: Days/Week 3 Alcohol: Daily Use no Alcohol: Drinks/Day no Alcohol: 6 or more drinks no Feel off balance no Concerns: Teeth/Dentures none, no teeth or dentures Concerns: Sexual function no voiced concerns Troubled by feelings no Frequency: Eating healthy diet yes ADLs requiring help no Safety precautions in home/vehicle no Smoke, vape, chews tobacco quit 2 months ago with Chant[employer] Difficulty hearing no Difficulty seeing no Current Providers Specialists: I have reviewed specialist-related care of the patient in the medical record. Dr.Gupta Jade Medical/Family history review Reviewed and updated problem list, medical/surgical/family /social history, medications, and allergies. Opioid use review Opioid Medications (last 90 days) No data to display Anxiety/Depression screening Recommendation: no further intervention at this time Cognitive screening Mini Cog Score: 3 Cognitive screening reviewed and No further action needed (score 3-5). Functional Observation Was the patient's Timed Up AND Go test unsteady or >= 12 seconds? No Advance Care Planning Surrogate decision maker and/or advance care plan documented Medicare Visit: - No hospitalizations or acute illnesses since last visit. - Denny Gomez denies falls, depression, anxiety, or memory issues. - No difficulty with ADLs or safety concerns at home. - No issues with hearing or vision; wears glasses for distance vision. - No difficulty rising f (more content not included)... Normal [facility] Comprehensive metabolic 2000 panelon 04-29-2025 Albumin [Mass/Vol] 4.4 g/dL Normal 3.9-4.9 [facility] Comment on above: Order Comment: Speci men Type: BLOOD SPECIMENOrdering Facility: [facility] Address: [address] [place] [address] Performed By: #### L IPNF, , ####[facility] [id number] [place] [address] [place] ALP [Catalytic activity/Vol] 85 U/L Normal 38-113 [facility] Comment on above: Order Comment: Speci men Type: BLOOD SPECIMENOrdering Facility: [facility] Address: [address] [place] [address] Performed By: #### L IPNF, , ####[facility] [id number] [address] [address] [place] ALT [Catalytic activity/Vol] 25 U/L Normal 10-54 [facility] Comment on above: Order Comment: Speci men Type: BLOOD SPECIMENOrdering Facility: [facility] Address: [address] [place] [address] Performed By: #### L IPNF, , ####[facility] [id number] [address] [address] [place] Anion gap [Moles/Vol] 10 mmol/L Normal 8-15 [facility] Comment on above: Order Comment: Speci men Type: BLOOD SPECIMENOrdering Facility: [facility] Address: [address] [place] [address] Performed By: #### L IPNF, , ####[facility] [id number] [address] [address] [place] AST [Catalytic activity/Vol] 21 U/L Normal 14-40 [facility] Comment on above: Order Comment: Speci men Type: BLOOD SPECIMENOrdering Facility: [facility] Address: [address] [place] [address] Performed By: #### L IPNF, , ####[facility] [id number] [place] [id number] [place] Bilirubin [Mass/Vol] 0.3 mg/dL Normal 0.2-1.3 [facility] Comment on above: Order Comment: Speci men Type: BLOOD SPECIMENOrdering Facility: [facility] Address: [address] [place] [address] Performed By: #### L IPNF, , ####[facility] [id number] [address] [address] [place] Calcium [Mass/Vol] 9.6 mg/dL Normal 8.5-10.2 [facility] Comment on above: Order Comment: Speci men Type: BLOOD SPECIMENOrdering Facility: [facility] Address: [address] [place] [address] Performed By: #### L IPNF, , ####[facility] [id number] [address] [address] [place] Chloride [Moles/Vol] 104 mmol/L Normal 98-107 [facility] Comment on above: Order Comment: Speci men Type: BLOOD SPECIMENOrdering Facility: [facility] Address: [address] [place] [address] Performed By: #### L IPNF, 28060-0, 24052-0 ####[facility] [id number] [place] [address] [place] CO2 [Moles/Vol] 24 mmol/L Normal 22-30 [facility] Comment on above: Order Comment: Speci men Type: BLOOD SPECIMENOrdering Facility: [facility] Address: [address] [place] [address] Performed By: #### L IPNF, , 15084-7 ####[facility] [id number] [place] [address] [place] Creatinine [Mass/Vol] 0.97 mg/dL Normal 0.73-1.22 [facility] Comment on above: Order Comment: Speci men Type: BLOOD SPECIMENOrdering Facility: [facility] Address: [address] [place] [address] Performed By: #### L IPNF, , ####[facility] [id number] [place] [address] [place] eGFRcr SerPlBld CKD-EPI 2020 84 mL/min/1.73m??? Normal >=60 [facility] Comment on above: Order Comment: Speci men Type: BLOOD SPECIMENOrdering Facility: [facility] Address: [address] [place] [address] Result Comment: Sheridan mated Glomerular Filtration Rate (eGFR) is calculated using the 2020 CKD-EPI creatinine equation. This equation utilizes serum creatinine, sex, and age as parameters. The creatinine assay has traceable calibration to isotope dilution-mass spectrometry. Refer to KDIGO guidelines for clinical interpretation. In patients with unstable renal function, e.g. those with acute kidney injury, the eGFR may not accurately reflect actual GFR. Performed By: #### L IPNF, , ####[facility] [id number] [place] [id number] [place] Glucose [Mass/Vol] 86 mg/dL Normal 74-99 [facility] Comment on above: Order Comment: Speci men Type: BLOOD SPECIMENOrdering Facility: [facility] Address: [address] [place] [address] Result Comment: The [place] Diabetes Association (ADA) provides guidance for cutoff values for fasting glucose and random glucose. The ADA defines fasting as no caloric intake for at least 8 hours. Fasting plasma glucose results between 100 to 125 mg/dL indicate increased risk for diabetes (prediabetes). Fasting plasma glucose results greater than or equal to 126 mg/dL meet the criteria for diagnosis of diabetes. In the absence of unequivocal hyperglycemia, results should be confirmed by repeat testing. In a patient with classic symptoms of hyperglycemia or hyperglycemic crisis, random plasma glucose results greater than or equal to 200 mg/dL meet the criteria for diagnosis of diabetes. Reference: Standards of Medical Care in Diabetes 2016, [place] Diabetes Association. Diabetes Care. 2016.39(Suppl 1). Performed By: #### L IPNF, , ####[facility] [id number] [place] [id number] [place] Potassium [Moles/Vol] 5.1 mmol/L Normal 3.7-5.1 [facility] Comment on above: Order Comment: Speci men Type: BLOOD SPECIMENOrdering Facility: [facility] Address: [address] [place] [address] Performed By: #### L IPNF, , ####[facility] [id number] [place] [id number] [place] Protein [Mass/Vol] 7.0 g/dL Normal 6.3-8.0 [facility] Comment on above: Order Comment: Speci men Type: BLOOD SPECIMENOrdering Facility: [facility] Address: [address] [place] [address] Performed By: #### L IPNF, , ####[facility] [id number] [place] [id number] [place] Sodium [Moles/Vol] 138 mmol/L Normal 136-144 [facility] Comment on above: Order Comment: Speci men Type: BLOOD SPECIMENOrdering Facility: [facility] Address: [address] [place] [address] Performed By: #### L IPNF, , ####[facility] [id number] [place] [address] [place] Urea nitrogen [Mass/Vol] 14 mg/dL Normal 9-24 [facility] Comment on above: Order Comment: Speci men Type: BLOOD SPECIMENOrdering Facility: [facility] Address: [address] [place] [address] Performed By: #### L IPNF, , ####[facility] [id number] [place] [address] [place] HbA1c (Bld)on 04-29-2025 Average glucose Estimated from glycated hemoglobin (Bld) [Mass/Vol] 94 mg/dL Normal [facility] Comment on above: Order Comment: Speci men Type: BLOOD SPECIMEN Ordering Facility: [facility] Address: [address] [place] [address] Result Comment: eAG: (Estimated average glucose) is a calculated value from HgbA1c and is compliance representative of the average blood glucose level in the last 2-3 month period. Performed By: #### 5 7021-8 #### [facility] CLIA [id number] [address] [place] [address] [place] HbA1c (Bld) [Mass fraction] 4.9 % Normal 4.3-5.6 [facility] Comment on above: Order Comment: Speci men Type: BLOOD SPECIMEN Ordering Facility: [facility] Address: [address] [place] [address] Result Comment: [place] Diabetes Association guidelines indicate that patients with HgbA1c in the range 5.7-6.4% are at increased risk for development of diabetes, and intervention by lifestyle modification may be beneficial. HgbA1c greater or equal to 6.5% is considered diagnostic of diabetes. Performed By: #### 5 7021-8 #### [facility] CLIA [id number] [address] [place] [address] [place] LIPID PANEL, NONFASTINGon Cholesterol [Mass/Vol] 170 mg/dL Normal <200 [facility] Comment on above: Order Comment: Sagar guan Type: BLOOD SPECIMENOrdering Facility: [facility] Address: [address] [place] [address] Result Comment: <200 mg/dL, Desirable 200-239 mg/dL, Borderline high >239 mg/dL, High Performed By: #### L IPNF, , ####[facility] [id number] [address] [place] HDL CHOLESTEROL, NF 94 mg/dL Normal >39 [facility] Comment on above: Order Comment: Sagar guan Type: BLOOD SPECIMENOrdering Facility: [facility] Address: [address] [place] [address] Result Comment: 40-5 9 mg/dL, Acceptable >59 mg/dL, High: Negative risk factor for coronary heart disease <40 mg/dL, Low: Positive risk factor for coronary heart disease Performed By: #### L IPNF, , ####[facility] LABCLIA [id number] [place] [address] [place] LDL CHOLESTEROL CALCULATED, NF 66 mg/dL Normal <100 [facility] Comment on above: Order Comment: Sagar roge Type: BLOOD SPECIMENOrdering Facility: [facility] Address: [address] [place] [address] Result Comment: <100 mg/dL, Optimal 100-129 mg/dL, Near optimal/above optimal 130-159 mg/dL, Borderline high 160-189 mg/dL, High >189 mg/dL, Very high Secondary prevention optimal LDL Cholesterol levels are recommended to be <70 mg/dL LDL cholesterol is calculated using the Cedeño-NIH equation. Performed By: #### L IPNF, , ####[facility] LABCLIA [id number] [address] OF [facility] LDL/HDL RATIO, NF 0.70 mg/dL Normal <2.54 [facility] Comment on above: Order Comment: Sagar guan Type: BLOOD SPECIMENOrdering Facility: [facility] Address: [address] [place] [address] Result Comment: Refe rence: 1. National Cholesterol Education Program ATP III Guideline At-A-Glance Quick Desk Reference: National Heart, Lung, and Blood [place]. National Institutes of Health. 2001: NIH Publication No. 01-3305. 2. An International Atherosclerosis Society position paper: global recommendations for the management of dyslipidemia: executive summary, Atherosclerosis. 2014: 232(2):410-413. Performed By: #### L YAMILKA, , ####[facility] LABIA [id number] [address] OF [facility] NON HDL CHOL, NF 76 mg/dL Normal <130 [facility] Comment on above: Order Comment: Sagar guan Type: BLOOD SPECIMENOrdering Facility: [facility] Address: [address] [place] [address] Result Comment: <130 mg/dL, Optimal 130-159 mg/dL, Near optimal/above optimal 160-189 mg/dL, Borderline high 190-219 mg/dL, High >219 mg/dL, Very high Secondary prevention optimal non HDL Cholesterol levels are recommended to be <100 mg/dL Performed By: #### L IPNF, , ####[facility] LABCLIA [id number] [place] [address] [place] T CHOL/HDL RATIO NF 1.81 mg/dL Normal <5.10 [facility] Comment on above: Order Comment: Speci men Type: BLOOD SPECIMENOrdering Facility: [facility] Address: [address] [place] [address] Performed By: #### L IPNF, , ####[facility] LABCLIA [id number] [place] [address] [place] TRIGLYCERIDES, NF 47 mg/dL Normal <150 [facility] Comment on above: Order Comment: Speci men Type: BLOOD SPECIMENOrdering Facility: [facility] Address: [address] [place] [address] Result Comment: <150 mg/dL, Normal 150-199 mg/dL, Borderline high 200-499 mg/dL, High >499 mg/dL, Very high Performed By: #### L IPNF, , ####[facility] LABCLIA [id number] [place] [id number] [place] VLDL CHOLESTEROL, NF 7 mg/dL Normal <30 [facility] Comment on above: Order Comment: Speci men Type: BLOOD SPECIMENOrdering Facility: [facility] Address: [address] [place] [address] Performed By: #### L IPNF, , ####[facility] LABCLIA [id number] [place] [id number] [place] Magnesium SerPl-mCncon 04-29 Magnesium [Mass/Vol] 2.2 mg/dL Normal 1.7-2.3 [facility] Comment on above: Order Comment: Speci men Type: BLOOD SPECIMENOrdering Facility: [facility] Address: [address] [place] [address] Performed By: #### L IPNF, , ####[facility] LABCLIA [id number] [address] [address] [place] Cardiology Visit Reporton Cardiology Visit Report [facility] [address] [place] [address] OFFICE VISIT Date of Service: 03/29/25 MR#: [id number] Acct: [id number] Name: DENNY GOMEZ Rep #: [id number] : 1955 Provider: Dr. Sidney Motta MD Age/Sex: 69/M Location: [facility] Status: Signed HPI HPI History of Present Illness Details: Mr. Gomez is a very pleasant 69-year-old gentleman who presents to the office today for a cardiovascular follow-up visit. He has a history of hypertension, hyperlipidemia, carotid artery disease s/p R AND LEFT CEA, severe peripheral vascular disease. The patient underwent lower extremity peripheral vascular evaluation at the [facility] on 02/07/2020 which demonstrated severe peripheral vascular disease with possibly subacute/acute on chronic total occlusion of the left common and majority of the left external iliac arteries as well as portions of the right and the majority of the left superficial femoral arteries. Right common femoral demonstrated diffuse atherosclerotic changes, right external iliac and 40 to 60% stenosis, right profunda is completely occluded, and right superficial femoral demonstrated multifocal severe mixed plaque with long segments of complete occlusion and multiple collateral vessels reconstituting a string-like distal right superficial femoral artery. He has undergone multiple procedures involving the lower extremities. From a cardiac standpoint, the patient is doing well. He denies any palpitations, chest pain, pressure or heaviness. He denies SOB, Orthopnea, and PND. He does not have bleeding issues; no blood in urine, stool or nosebleeds. He denies any decrease in energy level, myalgias, or claudication. He does not have edema, or sudden weight gain. He denies dizziness, lightheadedness, syncopal or near syncopal episodes. He has had some headaches which according to him have been attributable to small aneurysms in his brain which are being observed for now. Intake Vital Signs 03/17/24 14:52 03/07/25 12:00 08/26/25 14:41 Height 5 ft 8 in 5 ft 8 in 5 ft 8 in Weight: 148 lb BMI 22.5 BP 120/79 Blood Pressure Location Lt brachial Position Sitting Respiration 16 Pulse 60 Pulse Source Monitor Intake Visit Reasons: 1 Y FU Stable Cleaner Required: No Accompanied by: Significant Other Is patient in pain?: No Allergies No Known Allergies Allergy (Verified 03/29/25 14:51) Medications ???Medication ???Instructions ???Recorded ???Confirmed ???Type albuterol sulfate 90 mcg/actuation 2 puff inhalation Q4H PRN PRN 03/29/25 Rx aerosol inhaler Wheezing ##1 citalopram 40 mg tablet 40 mg PO DAILY depression 02/11/20 03/29/25 History mometasone-formoterol HFA 100 2 puff inhalation BID sob 02/11/20 03/29/25 History mcg-5 mcg/actuation aerosol inhaler finasteride 5 mg tablet (Proscar) 5 mg PO DAILY 03/17/24 03/29/25 H istory tamsulosin 0.4 mg capsule (Flomax) 0.4 mg PO DAILY 03/17/24 5 History amlodipine 5 mg tablet 5 mg PO DAILY daily #90 tabs 03/2903/29/25 Rx cholecalciferol (vitamin D3) 125 125 mcg PO QDAY 03/29/25 03/29/25 History mcg (5,000 unit) capsule rosuvastatin 40 mg tablet (Crestor) 40 mg PO DAILY #90 tabs 5 03/29/25 Rx varenicline tartrate 1 mg tablet 1 mg PO 03/29/25 03/29/25 History Have you fallen in the past year?: No PFSH Medical History 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 Elevated alkaline phosphatase level CVA (cerebral vascular accident) Pre-operative cardiovascular examination Peripheral vascular disease Carotid artery stenosis COPD (chronic obstructive pulmonary disease) Anxiety and depression Vitamin D deficiency Essential hypertension Hyperlipidemia Enlarged prostate Allergies Surgical History Hx of bilateral cataract extraction ( 11/07/22) Carotid artery aneurysm History of left knee surgery History of tonsillectomy Right cornea abrasion History of epidermal inclusion cyst excision Family History Mother , MOTHER FROM HEART DISEASE CAD (coronary artery disease) CVA (cerebral vascular accident) Heart disease Brother Hypertension Father , FATHER FROM BLACK LUNG, WORKED IN THE [employer] No problems noted. Brother , AT No problems noted. Brother , FROM LUNG CANCER Lung cancer Social History Smoking Status: Former smoker alcohol intake: never substance use type: does not use ROS Const Const: Negative for fatigue, weakness, headache(s), day (more content not included)... Normal [facility] OCT OPTIC NERVE CIRRUS OU (B OTH EYES)on 03-14-2025 [facility] Radiology Study observation (narrative) [facility] Absolute lymphocyte countOrd ered By: Oscar Beckford on 03-07-2025 Lymphocytes Auto (Unsp spec) [#/Vol] 1.59 10*3/uL 0.83-4.51 [facility] Absolute neutrophil countOrd ered By: Oscar Beckford on 03-07-2025 Neutrophils (Bld) [#/Vol] 4.7 10*3/uL 2.0-7.7 [facility] Anion gap in Serum or Plasma Ordered By: Oscar Beckford on 03-07-2025 Anion gap [Moles/Vol] 11 mmol/L 5- [facility] Automated lymphocyte count a s percentage of total leukocytesOrdered By: Oscar Beckford on 03-07-2025 Lymphocytes/100 WBC Auto (Unsp spec) 23.2 % - [facility] BUN/creatinine ratioOrdered By: Oscar Beckford on 03-07-2025 Urea nitrogen/Creatinine [Mass ratio] 16.7 mg/mg 10- [facility] Basic Metabolic Profile (BMP )on 03-07-2025 BUN/CRE 16.7 RATIO Normal - [facility] Comment on above: Performed By: #### L 500.2500, L100.0100 #### [facility] [address] [place], [address] Calcium [Mass/Vol] 9.6 mg/dL Normal 7.6-11.0 [facility] Comment on above: Performed By: #### L 500.2500, L100.0100 #### [facility] [address] [place], [address] Chloride [Moles/Vol] 106 mmol/L Normal 98-108 [facility] Comment on above: Performed By: #### L 500.2500, L100.0100 #### [facility] [address] [place], [address] CO2 [Moles/Vol] 22.6 mmol/L Normal 21.0-32.0 [facility] Comment on above: Performed By: #### L 500.2500, L100.0100 #### [facility] [address] [place], [address] Creatinine [Mass/Vol] 0.87 mg/dL Normal 0.70-1.20 [facility] Comment on above: Performed By: #### L 500.2500, L100.0100 #### [facility] [address] [place], [address] ECRCL 75.88 ml/min Normal 50-250 [facility] Comment on above: Performed By: #### L 500.2500, L100.0100 #### [facility] [address] [place], [address] GAP 11 Normal 5-15 [facility] Comment on above: Performed By: #### L 500.2500, L100.0100 #### [facility] [address] [place], [address] GFR/1.73 sq M.predicted among non-blacks MDRD (S/P/Bld) [Vol rate/Area] 93 mL/min/{1.73_m2} Normal >60 [facility] Comment on above: Result Comment: mL/m in/1.73m2 CKD-EPI Creatinine Equation (2020) Performed By: #### L 500.2500, L100.0100 #### [facility] [address] [place], [address] Glucose [Mass/Vol] 84 mg/dL Normal 70-99 [facility] Comment on above: Performed By: #### L 500.2500, L100.0100 #### [facility] [address] [place], [address] Potassium [Moles/Vol] 4.3 mmol/L Normal 3.3-5.1 [facility] Comment on above: Performed By: #### L 500.2500, L100.0100 #### [facility] [address] [place], [address] Sodium [Moles/Vol] 139 mmol/L Normal 133-145 [facility] Comment on above: Performed By: #### L 500.2500, L100.0100 #### [facility] [address] [place], [address] Urea nitrogen [Mass/Vol] 15 mg/dL Normal 4-19 [facility] Comment on above: Performed By: #### L 500.2500, L100.0100 #### [facility] [address] [place], [address] Basophil percentageOrdered B y: Oscar Beckford on 03-07-2025 Basophils/100 WBC (Bld) 0.6 % 0-1 [facility] CBC W/Diff, Automatedon Absolute Lymph 1.59 X10 3/uL Normal 0.83-4.51 [facility] Comment on above: Performed By: #### L 500.2500, L100.0100 #### [facility] [address] [place], [address] Absolute Neut 4.7 X10 3/uL Normal 2.0-7.7 [facility] Comment on above: Performed By: #### L 500.2500, L100.0100 #### [facility] [address] [place], [address] Basophils/100 WBC (Bld) 0.6 % Normal 0-1 [facility] Comment on above: Performed By: #### L 500.2500, L100.0100 #### [facility] [address] [place], [address] Eosinophils/100 WBC (Bld) 0.4 % Normal 0-5 [facility] Comment on above: Performed By: #### L 500.2500, L100.0100 #### [facility] [address] [place], [address] Erythrocyte distribution width (RBC) [Ratio] 12.0 % Normal 11.6-14.6 [facility] Comment on above: Performed By: #### L 500.2500, L100.0100 #### [facility] [address] [place], [address] Hematocrit (Bld) [Volume fraction] 41.4 % Normal 40-54 [facility] Comment on above: Performed By: #### L 500.2500, L100.0100 #### [facility] [address] [place], [address] Hemoglobin (Bld) [Mass/Vol] 14.0 g/dL Normal 13.0-16.5 [facility] Comment on above: Performed By: #### L 500.2500, L100.0100 #### [facility] [address] [place], [address] IG% 0.300 Normal 0.0-0.9 [facility] Comment on above: Result Comment: IG% - Immature Granulocytes (promyelocytes, myelocytes and metamyelocytes) > 1% indicates that a LEFT SHIFT is Present. Performed By: #### L 500.2500, L100.0100 #### [facility] [address] [place], [address] Lymphocytes/100 WBC (Bld) 23.2 % Normal 19-41 [facility] Comment on above: Performed By: #### L 500.2500, L100.0100 #### [facility] [address] [place], [address] MCH (RBC) [Entitic mass] 32.8 pg High 27.0-32.0 [facility] Comment on above: Performed By: #### L 500.2500, L100.0100 #### [facility] [address] [place], [address] MCHC (RBC) [Mass/Vol] 33.8 g/dL Normal 32-36 [facility] Comment on above: Performed By: #### L 500.2500, L100.0100 #### [facility] [address] [place], [address] MCV (RBC) [Entitic vol] 97.0 fL High 80-94 [facility] Comment on above: Performed By: #### L 500.2500, L100.0100 #### [facility] [address] [place], [address] Monocytes/100 WBC (Bld) 6.7 % Normal 0-10 [facility] Comment on above: Performed By: #### L 500.2500, L100.0100 #### [facility] [address] [place], [address] Neutrophils/100 WBC (Bld) 68.8 % Normal 47-70 [facility] Comment on above: Performed By: #### L 500.2500, L100.0100 #### [facility] [address] [place], [address] Nucleated RBC (Bld) [#/Vol] 0 10*3/uL Normal 0-5 [facility] Comment on above: Performed By: #### L 500.2500, L100.0100 #### [facility] [address] [place], [address] Platelet mean volume (Bld) [Entitic vol] 10.9 fL Normal 6.2-12.0 [facility] Comment on above: Performed By: #### L 500.2500, L100.0100 #### [facility] [address] [place], [address] Platelets (Bld) [#/Vol] 205 10*3/uL Normal 150-450 [facility] Comment on above: Performed By: #### L 500.2500, L100.0100 #### [facility] [address] [place], [address] RBC (Bld) [#/Vol] 4.27 10*6/uL Low 4.6-6.2 [facility] Comment on above: Performed By: #### L 500.2500, L100.0100 #### [facility] [address] [place], [address] RDW SD 42.9 fl Normal 35.1-43.9 [facility] Comment on above: Performed By: #### L 500.2500, L100.0100 #### [facility] [address] [place], [address] WBC (Bld) [#/Vol] 6.9 10*3/uL Normal 4.4-11.0 [facility] Comment on above: Performed By: #### L 500.2500, L100.0100 #### [facility] [address] [place], [address] CTA Head W/WO Contraston CTA Head W/WO Contrast [facility] Imaging Services [address] [place] [address] CTA Head W/WO Contrast MR#: [id number] Acct: [id number] Name: DENNY GOMEZ Rep #: [id number] : 1955 M 69 From: Morris Naranjo MD PCP: Dr. Malu Rowe MD Status: REG ER Study: CTA Head W/WO Contrast Date of Exam: 03/07/25 Exam# [id number] Ordering Dr: Oscar Beckford DO PROCEDURE: CTA HEAD W/WO CONTRAST 03/07/2025 REASON FOR EXAM: HEADACHE, HISTORY OF BRAIN ANEURYSM TECHNIQUE: CTA HEAD W/WO CONTRAST Multiplanar Sagittal and Coronal images were obtained. 3D post processing was performed CONTRAST: Isovue 370 VOLUME: 75 mL One or more dose reduction techniques were used (e.g., Automated exposure control, adjustment of the mA and/or kV according to patient size, use of iterative reconstruction technique). RADIATION DOSE SUMMARY: CTDlvol: 135 mGy DLP: 1985 mGycm COMPARISON: January 25, 2019 FINDINGS: Head CT: Brain: Encephalomalacia left occipital and parietal region. No acute hemorrhage is seen. No acute ischemia is seen. Extensive low-density in the periventricular white matter and deep white matter is seen. No midline shift or mass effect. No extra-axial fluid collection is seen. CT angiogram: [place] [facility] [place]: Patent, small caliber posterior communicating arteries are present bilaterally. Anuerysm or AVM: None Distal internal carotid arteries: Cavernous and supraclinoid internal carotid arteries with some mural plaque. Anterior cerebral arteries: Patent Middle cerebral arteries: Patent. Vertebral arteries: Right is dominant. Both are patent. Basilar artery: Patent Posterior cerebral arteries: Patent Other major branches of the posterior circulation: Patent Major venous structures: Patent Non-vascular findings: Some ossification of the midline falx. CT/CTA Head W/WO Contrast IMPRESSION: 1. No large vessel occlusion. 2. Atherosclerosis is present. No stenosis or aneurysm seen. 3. Extensive chronic microvascular ischemia. Encephalomalacia left occipital lobe and parietal lobe. No acute ischemia. Reading Location: [facility] CC: Dr. Oscar Beckford DO; Dr. Malu Rowe MD Information Services Manager: Signed Normal [facility] Carbon dioxide, total [Moles /volume] in Central venous bloodOrdered By: Oscar eBckford on 03-07-2025 CO2 [Moles/Vol] 22.6 mmol/L 21.0-32.0 [facility] Chloride assayOrdered By: Sung Beckford on 03-07-2025 Chloride [Moles/Vol] 106 mmol/L 98-108 [facility] Emergency Department Summary on 03-07-2025 Emergency Department Summary [facility] Medical Records Department [address] [place] [address] Emergency Department Summary 03/07/25 MR#: [id number] Acct: [id number] Name: DENNY GOMEZ Rep #: [id number] : 1955 69 From: Oscar Beckford DO PCP: Dr. Malu Rowe MD Status:DEP ER Location: ED HPI History of Present Illness Chief Complaint: Headache Narrative Narrative: Chief complaint and HPI: Headache. 69-year-old male with past medical history of CAD, HTN, HLD, CVA presents for evaluation of headache. Patient states that he has had a mild headache for the past 2 days. He states he has a known brain aneurysm and was instructed by his neurologist to come to the ED for head CT if having a headache. He denies any fever, chills, URI symptoms, vision changes, hearing changes, numbness/tingling, or weakness. Denies any sound or light sensitivity. Denies any trauma. Not on blood thinners. No history of migraines. Headache has been gradual. Review of systems: See HPI Medications: As listed on the chart Allergies: As listed on the chart PFSH: Per chart Vital signs: As listed on the chart. Reviewed. Physical exam: Gen: A O x3, NAD Head: Normocephalic, atraumatic Eyes: No sclera icterus, conjunctiva clear, PERRL, EOMI ENT: TMs clear BL, moist mucous membranes, posterior oropharynx unremarkable, uvula midline, no facial asymmetry Neck: Trachea midline, No JVD, Full ROM, No meningismus CV: RRR, no murmurs, no peripheral edema Resp: Lungs CTA BL, no w/r/c GI: Abd soft, non-distended, non-tender, no r/r/g Musc: Full ROM, no deformity, strength +5/5 in all extremities Skin: Warm, dry, no rash Neuro: Alert, oriented, grossly intact, sensation intact Psych: Cooperative, appropriate mood and affect PFSH [facility] Medical History 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 Elevated alkaline phosphatase level CVA (cerebral vascular accident) Pre-operative cardiovascular examination Peripheral vascular disease Carotid artery stenosis COPD (chronic obstructive pulmonary disease) Anxiety and depression Vitamin D deficiency Essential hypertension Hyperlipidemia Enlarged prostate Allergies Home Medications ???Medication ???Instructions ???Recorded ???Last Taken ???Type albuterol sulfate 90 mcg/actuation 2 puff inhalation Q4H PRN PRN Unknown Rx aerosol inhaler Wheezing ##1 citalopram 40 mg tablet 40 mg PO DAILY depression 02/11/20 10/16/20 History mometasone-formoterol HFA 100 2 puff inhalation BID sob 02/11/20 Unknown History mcg-5 mcg/actuation aerosol inhaler amlodipine 5 mg tablet 5 mg PO DAILY daily #90 tabs 03/17 Unknown Rx finasteride 5 mg tablet (Proscar) 5 mg PO DAILY 03/17/24 Unknown Hi story rosuvastatin 40 mg tablet (Crestor) 40 mg PO DAILY #90 tabs 4 Unknown Rx tamsulosin 0.4 mg capsule (Flomax) 0.4 mg PO DAILY 03/17/24 Unknown History Allergy/AdvReac Type Severity Reaction Status Date / Time No Known Allergies Allergy Verified 03/07/25 12:03 Family History Mother , MOTHER FROM HEART DISEASE CAD (coronary artery disease) CVA (cerebral vascular accident) Heart disease Brother Hypertension Father , FATHER FROM BLACK LUNG, WORKED IN THE [employer] No problems noted. Brother , AT No problems noted. Brother , FROM LUNG CANCER Lung cancer Surgical History Hx of bilateral cataract extraction ( 11/07/22) Carotid artery aneurysm History of left knee surgery History of tonsillectomy Right cornea abrasion History of epidermal inclusion cyst excision Social History Smoking Status: Former smoker alcohol intake: never substance use type: does not use EXAM Physical Exam Const Vital Signs: 03/07/25 12:00 03/07/25 14:00 03/07/25 14:45 Temperature 98.3 F 98.3 F Temperature Source Oral Pulse Rate 66 54 L 60 Respiratory Rate 16 15 18 Blood Pressure 107/62 149/88 H 156/79 H Blood Pressure Mean 77 108 104 Pulse Ox 99 100 100 Oxygen Delivery Method Room Air Room Air MDM MDM MDM Narrative Medical decision making narrative: 69-year-old male with past medical history of CAD, HTN, HLD, CVA presents for evaluation of headache. Patient states that he has had a mild headache for the past 2 days. He states he has a known brain aneurysm and was instructed by his neurologist to come to the ED for head CT if having a headache. Denies acute onset of headache reaching maximal intensity in under one hour. This is neither the worst headache that they have ever ex (more content not included)... Normal [facility] Eosinophil percentageOrdered By: Oscar Beckford on 03-07-2025 Eosinophils/100 WBC (Bld) 0.4 % 0-5 [facility] Erythrocyte distribution wid th ratioOrdered By: Oscar Beckford on 03-07-2025 Erythrocyte distribution width (RBC) [Ratio] 12.0 % 11.6-14.6 [facility] Erythrocyte distribution wid th standard deviationOrdered By: Oscar Saeed on 03-07-2025 Erythrocyte distribution width (RBC) [Ratio] 42.9 fl 35.1-43.9 [facility] Glomerular filtration rate ( GFR) estimation/1.73 sq m using serum, plasma, or whole bOrdered By: Oscar Beckford on 03-07-2025 GFR/1.73 sq M.predicted among non-blacks MDRD (S/P/Bld) [Vol rate/Area] 93 mL/min/{1.73_m2} >60 [facility] Comment on above: mL/min/1.73m2 CKD-EP I Creatinine Equation (2020) Hematocrit Auto (Bld) [Volum e fraction]Ordered By: Oscar Beckford on 03-07-2025 Hematocrit (Bld) [Volume fraction] 41.4 % 40-54 [facility] Hemoglobin measurementOrdere d By: Oscar Beckford on 03-07-2025 Hemoglobin (Bld) [Mass/Vol] 14.0 g/dL 13.0-16.5 [facility] Immature granulocytes/100 WB C Auto (Bld)Ordered By: Oscar Beckford on 03-07-2025 Immature granulocytes/100 WBC (Bld) 0.300 % 0.0-0.9 [facility] Comment on above: IG% - Immature Granu locytes (promyelocytes, myelocytes and metamyelocytes) > 1% indicates that a LEFT SHIFT is Present. MCV (mean corpuscular volume ) determinationOrdered By: Oscar Beckford on 03-07-2025 MCV (RBC) [Entitic vol] 97.0 fL High 80-94 [facility] Mean corpuscular hemoglobin (MCH) determinationOrdered By: Oscar Beckford on 03-07-2025 MCH (RBC) [Entitic mass] 32.8 pg High 27.0-32.0 [facility] Mean corpuscular hemoglobin concentration (MCHC) determinationOrdered By: Oscar Beckford on 03-07-2025 MCHC (RBC) [Mass/Vol] 33.8 g/dL 32-36 [facility] Mean platelet volume determi nationOrdered By: Oscar Beckford on 03-07-2025 Platelet mean volume (Bld) [Entitic vol] 10.9 fL 6.2-12.0 [facility] Monocyte percentageOrdered B y: Oscar Beckford on 03-07-2025 Monocytes/100 WBC (Bld) 6.7 % 0-10 [facility] Neutrophil percentageOrdered By: Oscar Beckford on 03-07-2025 Neutrophils/100 WBC (Bld) 68.8 % 47-70 [facility] Nucleated red blood cell per centageOrdered By: Oscar Beckford on 03-07-2025 Nucleated RBC/100 WBC (Bld) [Ratio] 0 % 0-5 [facility] Platelet countOrdered By: Sung Beckford on 03-07-2025 Platelets (Bld) [#/Vol] 205 10*3/uL 150-450 [facility] Potassium measurement (mass/ volume)Ordered By: Oscar Beckford on 03-07-2025 Potassium (Unsp spec) [Mass/Vol] 4.3 mmol/L 3.3-5.1 [facility] RBC Auto (Bld) [#/Vol]Ordere d By: Oscar Beckford on 03-07-2025 RBC (Bld) [#/Vol] 4.27 10*6/uL Low 4.6-6.2 [facility] Serum creatinine measurement (mass/volume)Ordered By: Oscar Beckford on 03-07-2025 Creatinine [Mass/Vol] 0.87 mg/dL 0.70-1.20 [facility] Serum glucose measurement (m ass/volume)Ordered By: Oscar Beckford on 03-07-2025 Glucose [Mass/Vol] 84 mg/dL 70-99 [facility] Serum or plasma calcium jerzy urement (mass/volume)Ordered By: Oscar Saeed on 03-07-2025 Calcium [Mass/Vol] 9.6 mg/dL 7.6-11.0 [facility] Serum or plasma urea nitroge n measurement (mass/volume)Ordered By: Oscar Beckford on 03-07-2025 Urea nitrogen [Mass/Vol] 15 mg/dL 4-19 [facility] Sodium levelOrdered By: Guilherme Beckford on 03-07-2025 Sodium [Moles/Vol] 139 mmol/L 133-145 [facility] White blood cell (WBC) count Ordered By: Oscar Beckford on 03-07-2025 WBC (Bld) [#/Vol] 6.9 10*3/uL 4.4-11.0 [facility] 02-11-2025 CN[facility] Office Visit ([facility] ) DENNY GOMEZ ([id number]) 1955 M Date Time Provider Department 02/11/25 9:00 AM MOISES PENDLETON [facility] During your visit today, we recorded the following information about you: Temperature Pulse Respiration Blood pressure 98.6 degrees 66/minute 18/minute 133/73 Weight Height 69.6 kg 1.727 m Moises Pendleton MD 02/11/2025 9:42 AM [facility] [place] [facility] New Patient Consult Note SERVICE DATE: 01/18/2025 PRIMARY CARE PHYSICIAN: Malu Rowe MD Consultation requested by Malu Rowe MD for an opinion regarding Patient presents with: COPD . My final recommendations will be communicated back to the requesting physician by way of shared Medical record or letter to requesting physician via [place] mail. SUBJECTIVE CHIEF COMPLAINT: Lung nodule HPI: Denny Gomez is a 69 year old male here for lung nodule management. 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 Denny reports a chronic cough that has persisted for years, accompanied by the expectoration of clear sputum. He also experiences intermittent chest pain and tightness. He endorses wheezing but denies using inhalers consistently, stating that they "don't work." Denny has a history of smoking for over 40 years and continues to smoke, noting that smoking exacerbates his cough. He has not attempted any measures to alleviate the cough and believes that cessation of smoking would be beneficial. Denny is able to ambulate from his home to the parking lot without experiencing dyspnea. He spends most of his time at home watching TV but does engage in some walking. He denies any history of asthma. His brother also has COPD and is on oxygen therapy. PAST MEDICAL HISTORY Diagnosis Date Abnormal hemoglobin (Hgb) 04/07/2020 Hx: POD2 labs with drop in hemoglobin to 8.4 from baseline 10.6; transfused 1u PRBC POD2 A: asymptomatic, no associated tachycardia or hypotension P: f/u AM CBC Adenocarcinoma of prostate (HCC) 03/25/2023 Anxiety and depression BPH (benign prostatic hyperplasia) Carotid artery stenosis, asymptomatic, left COPD (chronic obstructive pulmonary disease) ([facility]) Critical lower limb ischemia ([facility]) Essential hypertension History: home Norvasc, lisinopril Assessment: MAP 65-85 mmHg with goals of normotension Plan: Resumed amlodipine, holding lisinopril Facial swelling 04/05/2020 Hx: facial swelling noted this morning A: no stridor or dysphagia P: Decadron 8mg q6 for 4 doses complete, facial swelling resolved Will continue to monitor Iliac artery injury, left, initial encounter 04/04/2020 History: post op, iliac rupture during OR Assessment: 04/04/2020 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 BP control . 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 History: Dulera and Fosamax at home Assessment: intubated and sedated Plan: can resume at dc Recurrent depressive disorder, in remission 02/26/2021 Stable on citalopram Stroke (cerebrum) ([facility]) Subdural hematoma (HCC) 2019 Unspecified essential hypertension [...] SUBCLAV NECK INC 02/16/2008 right CEA FAMILY HISTORY Problem Relation Age of Onset Heart Mother Glaucoma Brother Heart Brother Cancer Brother metastatic; no primary known PAST MEDICAL HISTORY Diagnosis Date Abnormal hemoglobin (Hgb) 04/07/2020 Hx: POD2 labs with drop in hemoglobin to 8.4 from baseline 10.6; transfused 1u PRBC POD2 A: asymptomatic, no associated tachycardia or hypotension P: f/u AM CBC Adenocarcinoma of prostate (HCC) 03/25/2023 Anxiety and depression BPH (benign prostatic hyperplasia) Carotid artery stenosis, asymptomatic, left COPD (chronic obstructive pulmonary disease) (HCC) Critical lower limb ischemia (HCC) Essential hypertension History: home Norvasc, lisinopril Assessment: MAP 65-85 mmHg with goals of normotension Plan: Resumed amlodipine, holding lisinopril Facial swelling 04/05/2020 Hx: facial swelling noted this morning A: no stridor or dysphagia P: Decadron 8mg q6 for 4 dose (more content not included)... [facility] DEN[facility] ([id number]) 1955 M Date Time Provider Department 01/26/25 MALU ROWE INTMWS During your visit today, we recorded the following information about you: Lyn Matta RN 01/26/2025 12:22 PM Signed Pt's called in and reported Pt needed a refill on Celexa. I let her know that provider sent in a years worth of refill on 10/27/24. I told her not to use the information on the bottle she had as it had 0 refills. I told her they probably hadn't used the new Rx and it was on hold. She was going to call pharmacy back. Lyn Matta RN Allergies As of Date: 01/26/2025 Noted Allergy Reaction SEASONAL ALLERGIES 2016 14 - Other: See Comments Comments: Sinus, runny nose Date Reviewed: 12/30/2024 Reviewed by: Layne Mario RT(R) - Fully Assessed Reason for Visit: Medication Request [138] Prescriptions as of 01/26/2025 - rosuvastatin (CRESTOR) 40 mg tablet Take 1 tablet by mouth once daily. - citalopram (CELEXA) 40 mg tablet Take 1 tablet by mouth once daily. - amLODIPine (NORVASC) 5 mg tablet Take 1 tablet by mouth once daily. - cholecalciferol (VITAMIN D-3) 5,000 unit tab Take 5,000 Units by mouth once daily. - finasteride (PROSCAR) 5 mg tablet Take 5 mg by mouth once daily. - tamsulosin (FLOMAX) 0.4 mg Take 0.4 mg by mouth once daily. - mometasone-formoterol (DULERA) 100-5 mcg/actuation inhaler Inhale 2 Puffs as instructed twice daily. Problem List As Of Date 01/26/2025 Noted Resolved Occlusion of right carotid artery [...] forms of age-related cataract of left *01/29/2019 04/29/2023 Bilateral carotid artery stenosis [I65.23] 03/24/2020 PAD (peripheral artery disease) (HCC) [I73.9] 03/25/2020 S/P carotid endarterectomy [Z98.890] 03/25/2020 H/O ischemic left MCA stroke [Z86.73] 03/31/2020 Intracranial atherosclerosis [I67.2] 03/31/2020 Atherosclerosis of shoshone[place]bann[place] artery of extremity w*04/04/2020 Iliac artery injury, left, initial encounter [S*04/04/2020 09/27/2024 On mechanically assisted ventilation (HCC) [Z99*04/04/2020 04/05/2020 Stress hyperglycemia [R73.9] 04/04/2020 04/06/2020 Post-op pain [G89.18] 04/04/2020 04/08/2020 Facial swelling [R22.0] 04/05/2020 09/27/2024 Abnormal hemoglobin (Hgb) ([facility]) [D58.2] 04/07/2020 04/17/2021 Vitamin D deficiency [E55.9] 02/26/2021 Recurrent depressive disorder, in remission (HC*02/26/2021 09/27/2024 Primary open angle glaucoma (POAG) of right eye*08/30/2022 Primary open angle glaucoma (POAG) of left eye,*08/30/2022 Combined forms of age-related cataract of right*08/30/2022 09/27/2022 Hypercholesteremia [E78.00] 08/30/2022 Status post cataract extraction and insertion o*11/08/2022 Status post cataract extraction and insertion o*11/08/2022 Aortoiliac occlusive disease (HCC) [I74.09] 01/21/2023 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] 01/21/2023 Adenocarcinoma of prostate (HCC) [C61] 03/25/2023 Chronic obstructive pulmonary disease, unspecif*04/29/2024 Encounter Status:Closed by LYN MATTA on 01/26/25 [facility] Sheila 01-04-2025 [facility] Telephone (NECVS8) DENNY [id number]) 1955 M Date Time Provider Department 01/04/25 Carolin FANG NECVS8 During your visit today, we recorded the following information about you: Layne Riggins 01/04/2025 12:06 PM Signed CV PHONE Name of caller : Mrs. Gomez Relationship to patient : Spouse If not self Will need patient permission to release results or disclose health information with called documented in fyi. Patient identified by Name and Date of . ( Denny Gomez, 1955). Yes Number to return call [phone] Reason for Call: Results: Results Calling office requesting result of CT scan test, completed on 12-31-24. Please call patient back at number above. Thank you calling [facility] [place]. You will receive a return call within 48 hours ( or 2 business days if close to the weekend). If you feel that this is an urgent issue and needs immediate attention, it is recommended that you contact your primary care provider office or proceed to your nearest Urgent Care Center of Emergency Room ED for evaluation/treatment. Caitlyn Muñiz 01/04/2025 2:08 PM Signed Patient calling again for CT results Constanza Delarosa RN 01/04/2025 2:53 PM Signed Called and updated patient that Dr. Fang has not reviewed his imaging yet for his CT scan. Will reach back out to patient once scan is looked at by provider. Will forward to provider to review. NADYA Cifuentes Taylor, RN 01/05/2025 10:51 AM Addendum Called and spoke with patient about CT results from Dr. Fang. Pt confirmed name and prior to relaying the message from Dr. Fang of: his plaque is overall stable, and the prior scan showing possible aneurysm looks more like plaque on the last 2 scans. His LEFT carotid artery is a bit more narrowed now than 2022, but not to degree of thinking about stenting. He should keep doing what he is doing currently, and I would do a carotid ultrasound and follow up with me this winter. Nothing here to explain his headaches - if they continue to get worse, we will need to consider MRI and follow up with me sooner. " Updated patient on when he should expect a repeat ultrasound and f/u appt with Leoncio. Pt advised if headaches continue to get worse to reach out to office so we can schedule a sooner appt and MRI. Pt confirmed he understood and comprehended. Pt had no other questions or concerns. Constanza Delarosa RN Allergies As of Date: 01/04/2025 Noted Allergy Reaction SEASONAL ALLERGIES 2016 14 - Other: See Comments Comments: Sinus, runny nose Date Reviewed: 12/30/2024 Reviewed by: Layne Mario RT(R) - Fully Assessed Reason for Visit: Results [95] Cmt: CT scan results Prescriptions as of 01/05/2025 - rosuvastatin (CRESTOR) 40 mg tablet Take 1 tablet by mouth once daily. - citalopram (CELEXA) 40 mg tablet Take 1 tablet by mouth once daily. - amLODIPine (NORVASC) 5 mg tablet Take 1 tablet by mouth once daily. - cholecalciferol (VITAMIN D-3) 5,000 unit tab Take 5,000 Units by mouth once daily. - finasteride (PROSCAR) 5 mg tablet Take 5 mg by mouth once daily. - tamsulosin (FLOMAX) 0.4 mg Take 0.4 mg by mouth once daily. - mometasone-formoterol (DULERA) 100-5 mcg/actuation inhaler Inhale 2 Puffs as instructed twice daily. Problem List As Of Date 01/04/2025 Noted Resolved Occlusion of right carotid artery [...] forms of age-related cataract of left *01/29/2019 04/29/2023 Bilateral carotid artery stenosis [I65.23] 03/24/2020 PAD (peripheral artery disease) ([facility]) [I73.9] 03/25/2020 S/P carotid endarterectomy [Z98.890] 03/25/2020 H/O ischemic left MCA stroke [Z86.73] 03/31/2020 Intracranial atherosclerosis [I67.2] 03/31/2020 Atherosclerosis of shosh[place] artery of extremity w*04/04/2020 Iliac artery injury, left, initial encounter [S*04/04/2020 09/27/2024 On mechanically assisted ventilation ([facility]) [Z99*04/04/2020 04/05/2020 Stress hyperglycemia [R73.9] 04/04/2020 04/06/2020 Post-op pain [G89.18] 04/04/2020 04/08/2020 Facial swelling [R22.0] 04/05/2020 09/27/2024 Abnormal hemoglobin (Hgb) ([facility]) [D58.2] 04/07/2020 04/17/2021 Vitamin D deficiency [E55.9] 02/26/2021 Recurrent depressive disorder, in remission (HC*02/26/2021 09/27/2024 Primary open angle glaucoma (POAG) of right eye*08/30/2022 Primary open angl (more content not included)... Normal [facility] CT Neck W contrast Lucius 05-3 * * *Final Report* * * DATE OF EXAM: Dec 31 2024 11:02AM [facility] 0024 - CTA NECK W IVCON / PROCEDURE REASON: Occlusion and stenosis of unspecified carotid artery * * * * Physician Interpretation * * * * EXAMINATION: CTA HEAD WO/W IVCON, CTA NECK W IVCON CLINICAL HISTORY: Carotid artery stenosis TECHNIQUE: Routine CT of the brain without IV contrast. Next, high resolution axial images were obtained through the head, neck and superior mediastinum following bolus administration of intravenous contrast for CT angiography. 3D maximum intensity projection images were created, reviewed and archived. MQ: CTABNPlus_4 Contrast: 80 mL Omnipaque [address] Radiation dose: Integrated Dose-Length Product (DLP) for this visit = 1723 mGy*cm. CT Dose Reduction Employed: Automated exposure control(AEC) and iterative recon COMPARISON: Head CT 01/21/2023, CTA head and neck 03/13/2021 RESULT: BRAIN: Acute change: No evidence of acute large vascular territory infarct. ASPECT Score = 10 Hemorrhage: No evidence of acute intracranial hemorrhage. ECASS hemorrhagic transformation score: Not Applicable Mass Lesion / Mass Effect: There is no evidence of an intracranial mass or extra-axial fluid collection. No mass effect. Chronic change: Remote infarct with encephalomalacia in the left parietal and occipital lobes. Small remote infarcts are present in the posterior aspect of the left middle frontal gyrus and the left precentral gyrus. Patchy areas of hypoattenuation throughout the bilateral cerebral hemispheric white matter are compatible with sequelae of chronic small vessel disease. Diffuse brain volume loss with ex-vacuo ventricular enlargement. Intracranial arterial calcifications are present. Ventricles: No evidence of hydrocephalus. Other: No air-fluid levels are identified within the paranasal sinuses. No evidence of acute fracture or destructive lesion involving the calvarium or skull base. NECK: Localizer images: No additional findings. Soft tissues: No evidence of mass lesion, lymphadenopathy, or prevertebral edema. Query postsurgical changes of remote bilateral carotid endarterectomy. Spine: No evidence of high grade canal stenosis. Lung apices: No evidence of mass lesion or infection. Pulmonary emphysema. CT ARTERIOGRAM: Extracranial Circulation: Aortic Arch: There is a normal branching pattern from the aortic arch. There is no significant stenosis in the proximal brachiocephalic vessels. Carotid Stenosis: Right Common: Multifocal calcified and noncalcified atherosclerotic plaque is present within the mid and distal right common carotid artery with mild to moderate luminal stenosis. Right Internal Carotid Plaque: Mixed calcified and noncalcified atherosclerotic plaque is present along the right carotid bifurcation with multifocal areas of luminal soft plaque irregularity. Right Internal Carotid Stenosis (% by NASCET Criteria): Likely less than 25%, however evaluation of the proximal right cervical ICA is degraded by motion artifact. Left Common: No significant stenosis. Multifocal mixed calcified and noncalcified atherosclerotic plaque is present throughout the mid and distal left common carotid artery. Left Internal Carotid Plaque: Predominantly noncalcified irregular atherosclerotic plaque is present along the left carotid bifurcation and proximal left ICA. Left Internal Carotid Stenosis (% by NASCET Criteria): Likely less than 25%, however evaluation of the proximal left cervical ICA is degraded by motion artifact. Cervical Vertebral Arteries: Patency: Atherosclerotic occlusion of the origins with intermittent reconstitution in the V2 segments other vertebral arteries bilaterally. Multifocal atherosclerotic plaque is present throughout the bilateral V2 and V3 segments of the vertebral arteries with likely flow-limiting stenoses in the V2 segments and the distal left V3 segment. Dominance: Right dominant. Intracranial Circulation: Anterior Circulation: No flow-limiting stenosis, large vessel occlusion, or aneurysm. Extensive calcified atherosclerotic plaque is present throughout the bilateral cavernous, ophthalmic, and proximal communicating ICA segments. Vertebrobasilar Circulation: No flow-limiting stenosis, large vessel occlusion, or aneurysm. DIVISION OF RADIOLOGY Provider, [facility] - 12/31/2024 * * *Final Report* * * DATE OF EXAM: Dec 31 2024 11:02AM [facility] 0024 - CTA NECK W IVCON / PROCEDURE REASON: Occlusion and stenosis of unspecified carotid artery * * * * Physician Interpretation * * * * EXAMINATION: CTA HEAD WO/W IVCON, CTA NECK W IVCON CLINICAL HISTORY: Carotid artery stenosis TECHNIQUE: Routine CT of the brain without IV contrast. Next, high resolution axial images were obtained through the head, neck and superior mediastinum following bolus administration of intravenous contrast for CT angiography. 3D maximum intensity projection images were created, reviewed and archived. MQ: CTABNPlus_4 Contrast: 80 mL Omnipaque [address] Radiation dose: Integrated Dose-Length Product (DLP) for this visit = 1723 mGy*cm. CT Dose Reduction Employed: Automated exposure control(AEC) and iterative recon COMPARISON: Head CT 01/21/2023, CTA head and neck 03/13/2021 RESULT: BRAIN: Acute change: No evidence of acute large vascular territory infarct. ASPECT Score = 10 Hemorrhage: No evidence of acute intracranial hemorrhage. ECASS hemorrhagic transformation score: Not Applicable Mass Lesion / Mass Effect: There is no evidence of an intracranial mass or extra-axial fluid collection. No mass effect. Chronic change: Remote infarct with encephalomalacia in the left parietal and occipital lobes. Small remote infarcts are present in the posterior aspect of the left middle frontal gyrus and the left precentral gyrus. Patchy areas of hypoattenuation throughout the bilateral cerebral hemispheric white matter are compatible with sequelae of chronic small vessel disease. Diffuse brain volume loss with ex-vacuo ventricular enlargement. Intracranial arterial calcifications are present. Ventricles: No evidence of hydrocephalus. Other: No air-fluid levels are identified within the paranasal sinuses. No evidence of acute fracture or destructive lesion involving the calvarium or skull base. NECK: Localizer images: No additional findings. Soft tissues: No evidence of mass lesion, lymphadenopathy, or prevertebral edema. Query postsurgical changes of remote bilateral carotid endarterectomy. Spine: No evidence of high grade canal stenosis. Lung apices: No evidence of mass lesion or infection. Pulmonary emphysema. CT ARTERIOGRAM: Extracranial Circulation: Aortic Arch: There is a normal branching pattern from the aortic arch. There is no significant stenosis in the proximal brachiocephalic vessels. Carotid Stenosis: Right Common: Multifocal calcified and noncalcified atherosclerotic plaque is present within the mid and distal right common carotid artery with mild to moderate luminal stenosis. Right Internal Carotid Plaque: Mixed calcified and noncalcified atherosclerotic plaque is present along the right carotid bifurcation with multifocal areas of luminal soft plaque irregularity. Right Internal Carotid Stenosis (% by NASCET Criteria): Likely less than 25%, however evaluation of the proximal right cervical ICA is degraded by motion artifact. Left Common: No significant stenosis. Multifocal mixed calcified and noncalcified atherosclerotic plaque is present throughout the mid and distal left common carotid artery. Left Internal Carotid Plaque: Predominantly noncalcified irregular atherosclerotic plaque is present along the left carotid bifurcation and proximal left ICA. Left Internal Carotid Stenosis (% by NASCET Criteria): Likely less than 25%, however evaluation of the proximal left cervical ICA is degraded by motion artifact. Cervical Vertebral Arteries: Patency: Atherosclerotic occlusion of the origins with intermittent reconstitution in the V2 segments other vertebral arteries bilaterally. Multifocal atherosclerotic plaque is present throughout the bilateral V2 and V3 segments of the vertebral arteries with likely flow-limiting stenoses in the V2 segments and the distal left V3 segment. Dominance: Right dominant. Intracranial Circulation: Anterior Circulation: No flow-limiting stenosis, large vessel occlusion, or aneurysm. Extensive calcified atherosclerotic plaque is present throughout the bilateral cavernous, ophthalmic, and proximal communicating ICA segments. Vertebrobasilar Circulation: No flow-limiting stenosis, large vessel occlusion, or aneurysm. IMPRESSION IMPRESSION: No evidence of acute large vascular territory infarct or intracranial hemorrhage. Multiple remote infarcts as detailed in the body of the report. CT is relatively insensitive for detection of acute infarction within the first 24 to 48 hours, and MRI may be indicated. Atherosclerotic occlusion of the origins with intermittent reconstitution in the V2 segments other vertebral arteries bilaterally. Multifocal atherosclero (more content not included)... [facility] CTA HEAD WO/W IVCONon 2024 CTA HEAD WO/W IVCON * * *Final Report* * * DATE OF EXAM: Dec 31 2024 11:02AM [facility] 0023 - CTA HEAD WO/W IVCON / PROCEDURE REASON: Nonruptured cerebral aneurysm (HCC) * * * * Physician Interpretation * * * * EXAMINATION: CTA HEAD WO/W IVCON, CTA NECK W IVCON CLINICAL HISTORY: Carotid artery stenosis TECHNIQUE: Routine CT of the brain without IV contrast. Next, high resolution axial images were obtained through the head, neck and superior mediastinum following bolus administration of intravenous contrast for CT angiography. 3D maximum intensity projection images were created, reviewed and archived. MQ: CTABNPlus_4 Contrast: 80 mL Omnipaque [address] Radiation dose: Integrated Dose-Length Product (DLP) for this visit = 1723 mGy*cm. CT Dose Reduction Employed: Automated exposure control(AEC) and iterative recon COMPARISON: Head CT 01/21/2023, CTA head and neck 03/13/2021 RESULT: BRAIN: Acute change: No evidence of acute large vascular territory infarct. ASPECT Score = 10 Hemorrhage: No evidence of acute intracranial hemorrhage. ECASS hemorrhagic transformation score: Not Applicable Mass Lesion / Mass Effect: There is no evidence of an intracranial mass or extra-axial fluid collection. No mass effect. Chronic change: Remote infarct with encephalomalacia in the left parietal and occipital lobes. Small remote infarcts are present in the posterior aspect of the left middle frontal gyrus and the left precentral gyrus. Patchy areas of hypoattenuation throughout the bilateral cerebral hemispheric white matter are compatible with sequelae of chronic small vessel disease. Diffuse brain volume loss with ex-vacuo ventricular enlargement. Intracranial arterial calcifications are present. Ventricles: No evidence of hydrocephalus. Other: No air-fluid levels are identified within the paranasal sinuses. No evidence of acute fracture or destructive lesion involving the calvarium or skull base. NECK: Localizer images: No additional findings. Soft tissues: No evidence of mass lesion, lymphadenopathy, or prevertebral edema. Query postsurgical changes of remote bilateral carotid endarterectomy. Spine: No evidence of high grade canal stenosis. Lung apices: No evidence of mass lesion or infection. Pulmonary emphysema. CT ARTERIOGRAM: Extracranial Circulation: Aortic Arch: There is a normal branching pattern from the aortic arch. There is no significant stenosis in the proximal brachiocephalic vessels. Carotid Stenosis: Right Common: Multifocal calcified and noncalcified atherosclerotic plaque is present within the mid and distal right common carotid artery with mild to moderate luminal stenosis. Right Internal Carotid Plaque: Mixed calcified and noncalcified atherosclerotic plaque is present along the right carotid bifurcation with multifocal areas of luminal soft plaque irregularity. Right Internal Carotid Stenosis (% by NASCET Criteria): Likely less than 25%, however evaluation of the proximal right cervical ICA is degraded by motion artifact. Left Common: No significant stenosis. Multifocal mixed calcified and noncalcified atherosclerotic plaque is present throughout the mid and distal left common carotid artery. Left Internal Carotid Plaque: Predominantly noncalcified irregular atherosclerotic plaque is present along the left carotid bifurcation and proximal left ICA. Left Internal Carotid Stenosis (% by NASCET Criteria): Likely less than 25%, however evaluation of the proximal left cervical ICA is degraded by motion artifact. Cervical Vertebral Arteries: Patency: Atherosclerotic occlusion of the origins with intermittent reconstitution in the V2 segments other vertebral arteries bilaterally. Multifocal atherosclerotic plaque is present throughout the bilateral V2 and V3 segments of the vertebral arteries with likely flow-limiting stenoses in the V2 segments and the distal left V3 segment. Dominance: Right dominant. Intracranial Circulation: Anterior Circulation: No flow-limiting stenosis, large vessel occlusion, or aneurysm. Extensive calcified atherosclerotic plaque is present throughout the bilateral cavernous, ophthalmic, and proximal communicating ICA segments. Vertebrobasilar Circulation: No flow-limiting stenosis, large vessel occlusion, or aneurysm. IMPRESSION: No evidence of acute large vascular territory infarct or intracranial hemorrhage. Multiple remote infarcts as detailed in the body of the report. CT is relatively insensitive for detection of acute infarction within the first 24 to 48 hours, and MRI may be indicated. Atherosclerotic occlusion of the origins with intermittent reconstitution in the V2 segments other vertebral arteries bilaterally. Multifocal atherosclerotic plaque is present throughout the bilateral V2 and V3 segments of the vertebral arteries with likely flow-limiting stenoses in the V2 segments and the distal left V3 se (more content not included)... Normal [facility] CTA Head vessels WO and W co ntrast Lucius 12-31-2024 * * *Final Report* * * DATE OF EXAM: Dec 31 2024 11:02AM [facility] 0023 - CTA HEAD WO/W IVCON / PROCEDURE REASON: Nonruptured cerebral aneurysm (HCC) * * * * Physician Interpretation * * * * EXAMINATION: CTA HEAD WO/W IVCON, CTA NECK W IVCON CLINICAL HISTORY: Carotid artery stenosis TECHNIQUE: Routine CT of the brain without IV contrast. Next, high resolution axial images were obtained through the head, neck and superior mediastinum following bolus administration of intravenous contrast for CT angiography. 3D maximum intensity projection images were created, reviewed and archived. MQ: CTABNPlus_4 Contrast: 80 mL Omnipaque [address] Radiation dose: Integrated Dose-Length Product (DLP) for this visit = 1723 mGy*cm. CT Dose Reduction Employed: Automated exposure control(AEC) and iterative recon COMPARISON: Head CT 01/21/2023, CTA head and neck 03/13/2021 RESULT: BRAIN: Acute change: No evidence of acute large vascular territory infarct. ASPECT Score = 10 Hemorrhage: No evidence of acute intracranial hemorrhage. ECASS hemorrhagic transformation score: Not Applicable Mass Lesion / Mass Effect: There is no evidence of an intracranial mass or extra-axial fluid collection. No mass effect. Chronic change: Remote infarct with encephalomalacia in the left parietal and occipital lobes. Small remote infarcts are present in the posterior aspect of the left middle frontal gyrus and the left precentral gyrus. Patchy areas of hypoattenuation throughout the bilateral cerebral hemispheric white matter are compatible with sequelae of chronic small vessel disease. Diffuse brain volume loss with ex-vacuo ventricular enlargement. Intracranial arterial calcifications are present. Ventricles: No evidence of hydrocephalus. Other: No air-fluid levels are identified within the paranasal sinuses. No evidence of acute fracture or destructive lesion involving the calvarium or skull base. NECK: Localizer images: No additional findings. Soft tissues: No evidence of mass lesion, lymphadenopathy, or prevertebral edema. Query postsurgical changes of remote bilateral carotid endarterectomy. Spine: No evidence of high grade canal stenosis. Lung apices: No evidence of mass lesion or infection. Pulmonary emphysema. CT ARTERIOGRAM: Extracranial Circulation: Aortic Arch: There is a normal branching pattern from the aortic arch. There is no significant stenosis in the proximal brachiocephalic vessels. Carotid Stenosis: Right Common: Multifocal calcified and noncalcified atherosclerotic plaque is present within the mid and distal right common carotid artery with mild to moderate luminal stenosis. Right Internal Carotid Plaque: Mixed calcified and noncalcified atherosclerotic plaque is present along the right carotid bifurcation with multifocal areas of luminal soft plaque irregularity. Right Internal Carotid Stenosis (% by NASCET Criteria): Likely less than 25%, however evaluation of the proximal right cervical ICA is degraded by motion artifact. Left Common: No significant stenosis. Multifocal mixed calcified and noncalcified atherosclerotic plaque is present throughout the mid and distal left common carotid artery. Left Internal Carotid Plaque: Predominantly noncalcified irregular atherosclerotic plaque is present along the left carotid bifurcation and proximal left ICA. Left Internal Carotid Stenosis (% by NASCET Criteria): Likely less than 25%, however evaluation of the proximal left cervical ICA is degraded by motion artifact. Cervical Vertebral Arteries: Patency: Atherosclerotic occlusion of the origins with intermittent reconstitution in the V2 segments other vertebral arteries bilaterally. Multifocal atherosclerotic plaque is present throughout the bilateral V2 and V3 segments of the vertebral arteries with likely flow-limiting stenoses in the V2 segments and the distal left V3 segment. Dominance: Right dominant. Intracranial Circulation: Anterior Circulation: No flow-limiting stenosis, large vessel occlusion, or aneurysm. Extensive calcified atherosclerotic plaque is present throughout the bilateral cavernous, ophthalmic, and proximal communicating ICA segments. Vertebrobasilar Circulation: No flow-limiting stenosis, large vessel occlusion, or aneurysm. DIVISION OF RADIOLOGY Provider, [facility] - 12/31/2024 * * *Final Report* * * DATE OF EXAM: Dec 31 2024 11:02AM [facility] 0023 - CTA HEAD WO/W IVCON / PROCEDURE REASON: Nonruptured cerebral aneurysm (HCC) * * * * Physician Interpretation * * * * EXAMINATION: CTA HEAD WO/W IVCON, CTA NECK W IVCON CLINICAL HISTORY: Carotid artery stenosis TECHNIQUE: Routine CT of the brain without IV contrast. Next, high resolution axial images were obtained through the head, neck and superior mediastinum following bolus administration of intravenous contrast for CT angiography. 3D maximum intensity projection images were created, reviewed and archived. MQ: CTABNPlus_4 Contrast: 80 mL Omnipaque [address] Radiation dose: Integrated Dose-Length Product (DLP) for this visit = 1723 mGy*cm. CT Dose Reduction Employed: Automated exposure control(AEC) and iterative recon COMPARISON: Head CT 01/21/2023, CTA head and neck 03/13/2021 RESULT: BRAIN: Acute change: No evidence of acute large vascular territory infarct. ASPECT Score = 10 Hemorrhage: No evidence of acute intracranial hemorrhage. ECASS hemorrhagic transformation score: Not Applicable Mass Lesion / Mass Effect: There is no evidence of an intracranial mass or extra-axial fluid collection. No mass effect. Chronic change: Remote infarct with encephalomalacia in the left parietal and occipital lobes. Small remote infarcts are present in the posterior aspect of the left middle frontal gyrus and the left precentral gyrus. Patchy areas of hypoattenuation throughout the bilateral cerebral hemispheric white matter are compatible with sequelae of chronic small vessel disease. Diffuse brain volume loss with ex-vacuo ventricular enlargement. Intracranial arterial calcifications are present. Ventricles: No evidence of hydrocephalus. Other: No air-fluid levels are identified within the paranasal sinuses. No evidence of acute fracture or destructive lesion involving the calvarium or skull base. NECK: Localizer images: No additional findings. Soft tissues: No evidence of mass lesion, lymphadenopathy, or prevertebral edema. Query postsurgical changes of remote bilateral carotid endarterectomy. Spine: No evidence of high grade canal stenosis. Lung apices: No evidence of mass lesion or infection. Pulmonary emphysema. CT ARTERIOGRAM: Extracranial Circulation: Aortic Arch: There is a normal branching pattern from the aortic arch. There is no significant stenosis in the proximal brachiocephalic vessels. Carotid Stenosis: Right Common: Multifocal calcified and noncalcified atherosclerotic plaque is present within the mid and distal right common carotid artery with mild to moderate luminal stenosis. Right Internal Carotid Plaque: Mixed calcified and noncalcified atherosclerotic plaque is present along the right carotid bifurcation with multifocal areas of luminal soft plaque irregularity. Right Internal Carotid Stenosis (% by NASCET Criteria): Likely less than 25%, however evaluation of the proximal right cervical ICA is degraded by motion artifact. Left Common: No significant stenosis. Multifocal mixed calcified and noncalcified atherosclerotic plaque is present throughout the mid and distal left common carotid artery. Left Internal Carotid Plaque: Predominantly noncalcified irregular atherosclerotic plaque is present along the left carotid bifurcation and proximal left ICA. Left Internal Carotid Stenosis (% by NASCET Criteria): Likely less than 25%, however evaluation of the proximal left cervical ICA is degraded by motion artifact. Cervical Vertebral Arteries: Patency: Atherosclerotic occlusion of the origins with intermittent reconstitution in the V2 segments other vertebral arteries bilaterally. Multifocal atherosclerotic plaque is present throughout the bilateral V2 and V3 segments of the vertebral arteries with likely flow-limiting stenoses in the V2 segments and the distal left V3 segment. Dominance: Right dominant. Intracranial Circulation: Anterior Circulation: No flow-limiting stenosis, large vessel occlusion, or aneurysm. Extensive calcified atherosclerotic plaque is present throughout the bilateral cavernous, ophthalmic, and proximal communicating ICA segments. Vertebrobasilar Circulation: No flow-limiting stenosis, large vessel occlusion, or aneurysm. IMPRESSION IMPRESSION: No evidence of acute large vascular territory infarct or intracranial hemorrhage. Multiple remote infarcts as detailed in the body of the report. CT is relatively insensitive for detection of acute infarction within the first 24 to 48 hours, and MRI may be indicated. Atherosclerotic occlusion of the origins with intermittent reconstitution in the V2 segments other vertebral arteries bilaterally. Multifocal atherosclerotic plaque is (more content not included)... [facility] CTA NECK W IVCONon CTA NECK W IVCON * * *Final Report* * * DATE OF EXAM: Dec 31 2024 11:02AM [facility] 0024 - CTA NECK W IVCON / PROCEDURE REASON: Occlusion and stenosis of unspecified carotid artery * * * * Physician Interpretation * * * * EXAMINATION: CTA HEAD WO/W IVCON, CTA NECK W IVCON CLINICAL HISTORY: Carotid artery stenosis TECHNIQUE: Routine CT of the brain without IV contrast. Next, high resolution axial images were obtained through the head, neck and superior mediastinum following bolus administration of intravenous contrast for CT angiography. 3D maximum intensity projection images were created, reviewed and archived. MQ: CTABNPlus_4 Contrast: 80 mL Omnipaque [address] Radiation dose: Integrated Dose-Length Product (DLP) for this visit = 1723 mGy*cm. CT Dose Reduction Employed: Automated exposure control(AEC) and iterative recon COMPARISON: Head CT 01/21/2023, CTA head and neck 03/13/2021 RESULT: BRAIN: Acute change: No evidence of acute large vascular territory infarct. ASPECT Score = 10 Hemorrhage: No evidence of acute intracranial hemorrhage. ECASS hemorrhagic transformation score: Not Applicable Mass Lesion / Mass Effect: There is no evidence of an intracranial mass or extra-axial fluid collection. No mass effect. Chronic change: Remote infarct with encephalomalacia in the left parietal and occipital lobes. Small remote infarcts are present in the posterior aspect of the left middle frontal gyrus and the left precentral gyrus. Patchy areas of hypoattenuation throughout the bilateral cerebral hemispheric white matter are compatible with sequelae of chronic small vessel disease. Diffuse brain volume loss with ex-vacuo ventricular enlargement. Intracranial arterial calcifications are present. Ventricles: No evidence of hydrocephalus. Other: No air-fluid levels are identified within the paranasal sinuses. No evidence of acute fracture or destructive lesion involving the calvarium or skull base. NECK: Localizer images: No additional findings. Soft tissues: No evidence of mass lesion, lymphadenopathy, or prevertebral edema. Query postsurgical changes of remote bilateral carotid endarterectomy. Spine: No evidence of high grade canal stenosis. Lung apices: No evidence of mass lesion or infection. Pulmonary emphysema. CT ARTERIOGRAM: Extracranial Circulation: Aortic Arch: There is a normal branching pattern from the aortic arch. There is no significant stenosis in the proximal brachiocephalic vessels. Carotid Stenosis: Right Common: Multifocal calcified and noncalcified atherosclerotic plaque is present within the mid and distal right common carotid artery with mild to moderate luminal stenosis. Right Internal Carotid Plaque: Mixed calcified and noncalcified atherosclerotic plaque is present along the right carotid bifurcation with multifocal areas of luminal soft plaque irregularity. Right Internal Carotid Stenosis (% by NASCET Criteria): Likely less than 25%, however evaluation of the proximal right cervical ICA is degraded by motion artifact. Left Common: No significant stenosis. Multifocal mixed calcified and noncalcified atherosclerotic plaque is present throughout the mid and distal left common carotid artery. Left Internal Carotid Plaque: Predominantly noncalcified irregular atherosclerotic plaque is present along the left carotid bifurcation and proximal left ICA. Left Internal Carotid Stenosis (% by NASCET Criteria): Likely less than 25%, however evaluation of the proximal left cervical ICA is degraded by motion artifact. Cervical Vertebral Arteries: Patency: Atherosclerotic occlusion of the origins with intermittent reconstitution in the V2 segments other vertebral arteries bilaterally. Multifocal atherosclerotic plaque is present throughout the bilateral V2 and V3 segments of the vertebral arteries with likely flow-limiting stenoses in the V2 segments and the distal left V3 segment. Dominance: Right dominant. Intracranial Circulation: Anterior Circulation: No flow-limiting stenosis, large vessel occlusion, or aneurysm. Extensive calcified atherosclerotic plaque is present throughout the bilateral cavernous, ophthalmic, and proximal communicating ICA segments. Vertebrobasilar Circulation: No flow-limiting stenosis, large vessel occlusion, or aneurysm. IMPRESSION: No evidence of acute large vascular territory infarct or intracranial hemorrhage. Multiple remote infarcts as detailed in the body of the report. CT is relatively insensitive for detection of acute infarction within the first 24 to 48 hours, and MRI may be indicated. Atherosclerotic occlusion of the origins with intermittent reconstitution in the V2 segments other vertebral arteries bilaterally. Multifocal atherosclerotic plaque is present throughout the bilateral V2 and V3 segments of the vertebral arteries with likely flow-limiting stenoses in the V2 segments and the dis (more content not included)... Normal [facility] Creatinine + eGFR Pnl SerPlB ldon 12-31-2024 Creatinine and Glomerular filtration rate.predicted panel (S/P/Bld) 94 mL/min/1.73m??? Normal >=60 [facility] Comment on above: Order Comment: Specanabell guan Type: BLOOD SPECIMENOrdering Facility: [facility] Address: [address] [place] [address] Result Comment: Sheridan mated Glomerular Filtration Rate (eGFR) is calculated using the 2020 CKD-EPI creatinine equation. This equation utilizes serum creatinine, sex, and age as parameters. The creatinine assay has traceable calibration to isotope dilution-mass spectrometry. Refer to KDIGO guidelines for clinical interpretation. In patients with unstable renal function, e.g. those with acute kidney injury, the eGFR may not accurately reflect actual GFR. Performed By: #### [id number] ####[facility] [id number] [place] [address] [place] Creatinine and Glomerular fi ltration rate.predicted panel (S/P/Bld)on 12-31-2024 Creatinine [Mass/Vol] 0.83 mg/dL Normal 0.73-1.22 [facility] Comment on above: Order Comment: Sagar guan Type: BLOOD SPECIMENOrdering Facility: [facility] Address: [address] [place] [address] Performed By: #### [id number] ####[facility] [id number] [place] [address] [place] No Panel Informationon 12-31 IMPRESSION: No evidence of acute large vascular territory infarct or intracranial hemorrhage. Multiple remote infarcts as detailed in the body of the report. CT is relatively insensitive for detection of acute infarction within the first 24 to 48 hours, and MRI may be indicated. Atherosclerotic occlusion of the origins with intermittent reconstitution in the V2 segments other vertebral arteries bilaterally. Multifocal atherosclerotic plaque is present throughout the bilateral V2 and V3 segments of the vertebral arteries with likely flow-limiting stenoses in the V2 segments and the distal left V3 segment. Multifocal atherosclerotic plaque is present in the bilateral common carotid arteries, carotid bifurcations, and bilateral proximal cervical internal carotid arteries with mild to moderate atherosclerotic narrowing of the distal right common carotid artery. While there is no evidence of flow-limiting stenosis involving the bilateral carotid bifurcations or cervical internal carotid arteries, evaluation of the proximal cervical internal carotid arteries is degraded by motion artifact. Irregularity of the soft plaque along the bilateral carotid artery bifurcations may reflect ulcerated/at risk plaque. Arterial blood flow was measured to detect acute large vessel occlusion by computer aided detection software: Not Performed Information Services Manager: PSCB Transcribe Date/Time: Dec 31 2024 11:10A Dictated by : DEJA BARAHONA MD This examination was interpreted and the report reviewed and electronically signed by: DEJA BARAHONA MD on Dec 31 2024 11:20AM [facility] DIVISION OF RADIOLOGY Radiology Study observation (narrative) [facility] No Panel InformationOrdered By: [facility] Provider on 12-31-2024 [facility] PSA,Total- Diagnosticon 12-03 PSA, DIAGNOSTIC 0.89 ng/mL Normal 0.00-4.00 [facility] Comment on above: Result Comment: This test was performed using the [employer] tPSA method. Measured values of a patient??sample can vary depending on the testing procedure used. PSA values determined on patient samples by different testing procedures cannot be used interchangeably. If there is a change in PSA assays while monitoring therapy, sequential testing should be performed to confirm baseline values. Performed By: #### L [phone] #### [facility] [address] [place], [address] CNOVon 12-21-2024 CNOV Office Visit (NECVS8 ) DENNY GOMEZ ([id number]) 1955 M Date Time Provider Department 12/21/24 10:00 AM Carolin FANG NECVS8 During your visit today, we recorded the following information about you: Pulse Blood pressure Weight Height 70/minute 117/63 70.3 kg 1.727 m Carolin Fang MD 12/23/2024 11:16 AM Signed [facility] (Patient previously seen by me, but not since 03/2021) CEREBROVASCULAR HISTORY Denny Gomez is a 69 year old right-handed male. 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/2019 *H/o diffuse athero and L MCA strokes s/p L CEA 03/24/2020 --No symptoms from stroke post CEA; had PARMAR, so CTH completed showing acute-subacute L precentral infarcts and chronic SVID --Has know h/o diffuse athero and stenosis/athero carotid siphons along with cervical disease now s/p b/l CEAs --On DAPT + statin for PAD --Continues to have daily headache - was Rx'd Fioricet without much relief; describes his PARMAR as bi-temporooccipital and "pressure"; sometimes worse with chewing; no visual changes; no positional component -- 05/08/2020: --Underwent multiple vessel endart and stenting BLEs on 04/04/2020 and tolerated well --No new stroke S/Sx --HAs have completely resolved and filled GBP, but did not end up needing to take --Continues on DAPT + statin ---- 03/13/2021: --Nothing new to report to us today; no new stroke S/Sx --Repeat CTA done today as below --- 12/21/2024: --Here as part of routine follow up for intra/extracranial athero, prior ICH and ischemic strokes. Had CTA 2020 also concerning for possible L ICA ophthalmic aneurysm vs athero but then never followed up with us. Had follow up with vascular surgery 2022 with CTA HANDN with appearance more c/w athero, but had seen vascular surgery recently and recommended to follow back up with us. --No new stroke S/Sx since our last visit --Reports bifrontal TTHs about 1d/month. 8/10 pain at worst and that pain will last 15-45min. Sleeping helps. No visual or other symptoms associated. Throbbing. Antiplatelets/Anticoagu lants: Aspirin - 81 mg Statins: Rosuvastatin - 40mg Residual Deficits: Visual deficit Current PT/OT/ST: No therapy needs Current Living Situation: Home with spouse Current use of a mobility aid for walking/getting around: None PAST MEDICAL HISTORY Diagnosis Date Abnormal hemoglobin (Hgb) 04/07/2020 Hx: POD2 labs with drop in hemoglobin to 8.4 from baseline 10.6; transfused 1u PRBC POD2 A: asymptomatic, no associated tachycardia or hypotension P: f/u AM CBC Adenocarcinoma of prostate (HCC) 03/25/2023 Anxiety and depression BPH (benign prostatic hyperplasia) Carotid artery stenosis, asymptomatic, left COPD (chronic obstructive pulmonary disease) ([facility]) Critical lower limb ischemia ([facility]) Essential hypertension History: home Norvasc, lisinopril Assessment: MAP 65-85 mmHg with goals of normotension Plan: Resumed amlodipine, holding lisinopril Facial swelling 04/05/2020 Hx: facial swelling noted this morning A: no stridor or dysphagia P: Decadron 8mg q6 for 4 doses complete, facial swelling resolved Will continue to monitor Iliac artery injury, left, initial encounter 04/04/2020 History: post op, iliac rupture during OR Assessment: 04/04/2020 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 BP control . 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 Normal [facility] CNPNon 11-05-2024 CNPN Telephone (NIQ) JASONDENNY ([id number]) 1955 M Date Time Provider Department 11/05/24 NEUROLOGY PROVIDER NIQ During your visit today, we recorded the following information about you: Nancy Benjamin 11/05/2024 2:55 PM Signed ENDOVASCULAR INTAKE Patient name: Denny Gomez When was triage completed? November 05 What diagnosis are you looking to be seen for within our center? (ex: aneurysm, angioma, arteriovenous malformation, brain bleed or brain hemorrhage, cavernous malformation, carotid stenosis, fistula, [place], Vein of [place], IIH or pseudotumor, etc.) Carotid aneurysm, left [I72.0] , 3.5mm Is there a specific provider who is requesting you see our center? (referring provider) Carlos A Kennedy MD in [facility] Has your referring provider recommended a specific provider in our department? No Is this a second opinion? Have you been recommended for surgery or procedure for this condition? Possibly a second opinion, aneurysm has been followed before. Not recommended for surgery/procedure. If yes, have you scheduled this procedure at another facility? If yes, when is the procedure scheduled? Where have you had any imaging for this diagnosis in the past year? These include images such as ultrasounds, MRIs, CTs, or angiograms of the head, brain, neck, carotids, or spine. [facility] in Chart Have you had any surgeries or procedures for this condition? No If yes, where was it done and when? Who performed the surgery or procedure? Does any of the following pertain to you? Family history of brain aneurysm? No (but family history of stroke) Polycystic kidney disease or other genetic kidney disease? Not applicable if chronic kidney disease. No Connective tissue disease such as fibromuscular dysplasia or Lisa-Danlos Syndrome? No Do you prefer in-person or virtual appointment? Out of state residents must be in [place] at the time of their virtual visit. In Person Specific day of the week or time of day? Any Time Do you prefer to be notified of your appointment by phone or Callystrohart message? Phone Call (Betsey haydee) Thank you for speaking with me today. Your information will now be forwarded to our endovascular advance practice provider team to review and provide scheduling recommendations. Please allow 3 business days to hear back from us. If you do not, feel free to call back [phone] for an update. Allergies As of Date: 11/05/2024 Noted Allergy Reaction SEASONAL ALLERGIES 2016 14 - Other: See Comments Comments: Sinus, runny nose Date Reviewed: 10/27/2024 Reviewed by: Kaylan Garza LPN - Fully Assessed Prescriptions as of 11/24/2024 - rosuvastatin (CRESTOR) 40 mg tablet Take 1 tablet by mouth once daily. - citalopram (CELEXA) 40 mg tablet Take 1 tablet by mouth once daily. - amLODIPine (NORVASC) 5 mg tablet Take 1 tablet by mouth once daily. - cholecalciferol (VITAMIN D-3) 5,000 unit tab Take 5,000 Units by mouth once daily. - finasteride (PROSCAR) 5 mg tablet Take 5 mg by mouth once daily. - tamsulosin (FLOMAX) 0.4 mg Take 0.4 mg by mouth once daily. - mometasone-formoterol (DULERA) 100-5 mcg/actuation inhaler Inhale 2 Puffs as instructed twice daily. - albuterol HFA (PROAIR HFA) 90 mcg/actuation inhaler Inhale 2 Puffs as instructed every 4 hours as needed for up to 15 days. Problem List As Of Date 11/05/2024 Noted Resolved Occlusion of right carotid artery [...] forms of age-related cataract of left *01/29/2019 04/29/2023 Bilateral carotid artery stenosis [I65.23] 03/24/2020 PAD (peripheral artery disease) ([facility]) [I73.9] 03/25/2020 S/P carotid endarterectomy [Z98.890] 03/25/2020 H/O ischemic left MCA stroke [Z86.73] 03/31/2020 Intracranial atherosclerosis [I67.2] 03/31/2020 Atherosclerosis of shoshone-bannock artery of extremity w*04/04/2020 Iliac artery injury, left, initial encounter [S*04/04/2020 09/27/2024 On mechanically assisted ventilation (HCC) [Z99*04/04/2020 04/05/2020 Stress hyperglycemia [R73.9] 04/04/2020 04/06/2020 Post-op pain [G89.18] 04/04/2020 04/08/2020 Facial swelling [R22.0] 04/05/2020 09/27/2024 Abnormal hemoglobin (Hgb) (HCC) [D58.2] 04/07/2020 04/17/2021 Vitamin D deficiency [E55.9] 02/26/2021 Recurrent depressive disorder, in remission (HC*02/26/2021 09/27/2024 Primary open angle glaucoma (POAG) of (more content not included)... Normal [facility] CT CHEST WO IVCONon 11-02-19 CT CHEST WO IVCON * * *Final Report* * * DATE OF EXAM: Nov 01 2024 3:46PM [facility] 0541 - CT CHEST WO IVCON / PROCEDURE REASON: Abnormality of lung on CXR * * * * Physician Interpretation * * * * EXAMINATION: CHEST CT WITHOUT CONTRAST CLINICAL HISTORY: Possible left pulmonary nodule on recent chest x-ray Technique: Spiral CT acquisition of the chest from the thoracic inlet to the upper abdomen without contrast. MQ: [id number] CT Radiation dose: Integrated Dose-length product (DLP) for this visit = 176 mGy*cm CT Dose Reduction Employed: Automated exposure control(AEC) and iterative recon Comparison: Chest x-ray dated 10/27/[address] chest dated 05/09/2017 RESULT: Limitations: None. Lines, tubes, and devices: None. Lung parenchyma and airways: No consolidation. Stable 2 to 3 mm right fissural-based groundglass nodule (7, 89) dictated back to 2017. Additional stable 2 mm left upper lobe subpleural nodule (5, 105) also dating back to 2017. No additional pulmonary nodule including in the left the lung identified. The central airways are patent. Pleural space: No pleural effusion. No pleural thickening. Lower neck, lymph nodes, and mediastinum: The imaged thyroid gland is normal. No lymphadenopathy in the supraclavicular, axillary, mediastinal, or hilar regions. Heart, pericardium, and thoracic vessels: There are scattered atherosclerotic calcifications of the visualized great vessels and thoracic aorta. The thoracic aorta and main pulmonary artery are normal in caliber. The cardiac chambers are normal in size. Coronary artery atherosclerotic calcifications are noted, although the study is not optimized for coronary assessment. No pericardial effusion or thickening. Bones and soft tissues: Degenerative changes. Upper abdomen: 6 cm right renal cyst. Few additional bilateral subcentimeter hypodense too small to characterize renal lesions. Atherosclerotic calcification of the vasculature. Localizer images: No additional findings. IMPRESSION: 1. Couple of stable 2 to 3 mm pulmonary nodules dating back to 2017. 2. No additional pulmonary nodules or suspect intrathoracic lymphadenopathy. Information Services Manager: PSCB Transcribe Date/Time: Nov 10 2024 9:04A Dictated by : SHASHANK ALONZO MD This examination was interpreted and the report reviewed and electronically signed by: SHASHANK ALONZO MD on Nov 10 2024 9:19AM EST [id number] Normal [facility] CNCOon 10-29-2024 CNCO Letter Text Normal [facility] CNPNon 10-29-2024 CNPN Telephone (FAMPWS) DENNY GOMEZ ([id number]) 1955 M Date Time Provider Department 10/29/24 MALU ROWE [facility] During your visit today, we recorded the following information about you: Agapito Cutler LPN 10/29/2024 9:22 AM Signed Pt calling for results of chest x-ray and labs. Pt had ov with pcp 10/27/24 please advise. LAM Lenz Liza D, MD 10/31/2024 5:57 PM Signed See lab result note. Labs okay. Only noted potassium slightly elevated so should avoid things like salt substitutes with potassium. From result note for CXR: No signs of pneumonia (no consolidation) There is a vague density that the radiologist cannot determine whether it is from overlapping structures or if something else is there, so recommended CT for complete evaluation. If patient agreeable, schedule CT scan as ordered. If wants to discuss first, can offer appointment. CT ordered for follow up on abnormal CXR. Zenobia Wiggins LPN 11/01/2024 10:06 AM Signed Spoke with pt gave information provided. Pt voices understanding. Please assist with getting ct set up. Ritika Meza 11/01/2024 10:57 AM Signed Spoke with patient and scheduled. Ritika Meza Allergies As of Date: 10/29/2024 Noted Allergy Reaction SEASONAL ALLERGIES 2016 14 - Other: See Comments Comments: Sinus, runny nose Date Reviewed: 10/27/2024 Reviewed by: Kaylan Garza LPN - Fully Assessed Primary Visit Diagnosis:Abnormality of lung on CXR [R91.8] [id number] Order #: [id number] FUTURE Prescriptions as of 11/01/2024 - rosuvastatin (CRESTOR) 40 mg tablet Take 1 tablet by mouth once daily. - citalopram (CELEXA) 40 mg tablet Take 1 tablet by mouth once daily. - amLODIPine (NORVASC) 5 mg tablet Take 1 tablet by mouth once daily. - cholecalciferol (VITAMIN D-3) 5,000 unit tab Take 5,000 Units by mouth once daily. - finasteride (PROSCAR) 5 mg tablet Take 5 mg by mouth once daily. - tamsulosin (FLOMAX) 0.4 mg Take 0.4 mg by mouth once daily. - mometasone-formoterol (DULERA) 100-5 mcg/actuation inhaler Inhale 2 Puffs as instructed twice daily. - albuterol HFA (PROAIR HFA) 90 mcg/actuation inhaler Inhale 2 Puffs as instructed every 4 hours as needed for up to 15 days. Problem List As Of Date 10/29/2024 Noted Resolved Occlusion of right carotid artery [...] forms of age-related cataract of left *01/29/2019 04/29/2023 Bilateral carotid artery stenosis [I65.23] 03/24/2020 PAD (peripheral artery disease) ([facility]) [I73.9] 03/25/2020 S/P carotid endarterectomy [Z98.890] 03/25/2020 H/O ischemic left MCA stroke [Z86.73] 03/31/2020 Intracranial atherosclerosis [I67.2] 03/31/2020 Atherosclerosis of shoshone-bannock artery of extremity w*04/04/2020 Iliac artery injury, left, initial encounter [S*04/04/2020 09/27/2024 On mechanically assisted ventilation ([facility]) [Z99*04/04/2020 04/05/2020 Stress hyperglycemia [R73.9] 04/04/2020 04/06/2020 Post-op pain [G89.18] 04/04/2020 04/08/2020 Facial swelling [R22.0] 04/05/2020 09/27/2024 Abnormal hemoglobin (Hgb) ([facility]) [D58.2] 04/07/2020 04/17/2021 Vitamin D deficiency [E55.9] 02/26/2021 Recurrent depressive disorder, in remission (HC*02/26/2021 09/27/2024 Primary open angle glaucoma (POAG) of right eye*08/30/2022 Primary open angle glaucoma (POAG) of left eye,*08/30/2022 Combined forms of age-related cataract of right*08/30/2022 09/27/2022 Hypercholesteremia [E78.00] 08/30/2022 Status post cataract extraction and insertion o*11/08/2022 Status post cataract extraction and insertion o*11/08/2022 Aortoiliac occlusive disease (HCC) [I74.09] 01/21/2023 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] 01/21/2023 Adenocarcinoma of prostate (HCC) [C61] 03/25/2023 Chronic obstructive pulmonary disease, unspecif*04/29/2024 Encounter Status:Closed by RITIKA MEZA on 11/01/24 Normal [facility] 25(OH)D3 SerPl-Rinramónon 2024 25-hydroxyvitamin D3 [Mass/Vol] 40.7 ng/mL Normal 31.0-80.0 [facility] Comment on above: Order Comment: Speci men Type: BLOOD SPECIMEN Ordering Facility: [facility] Address: [address] [place] [address] Result Comment: Clas sification of 25 OH Vitamin D status: Deficiency/Insufficiency: < or = 30 ng/ml. Sufficiency/Optimal Levels: 31-80 ng/mL Toxicity: > 100 ng/mL. Test performed by chemiluminescent immunoassay. Performed By: #### 5 7021-8 #### [facility] CLIA [id number] [address] [place] [address] [place] CBC panel Auto (Bld)on 10-27 Erythrocyte distribution width (RBC) [Ratio] 12.0 % Normal 11.5-15.0 [facility] Comment on above: Order Comment: Speci men Type: BLOOD SPECIMENOrdering Facility: [facility] Address: [address] [place] [address] Performed By: #### 5 8410-2 ####[facility] LABCLIA [id number] [place] [address] [place] Hematocrit (Bld) [Volume fraction] 45.3 % Normal 39.0-51.0 [facility] Comment on above: Order Comment: Speci men Type: BLOOD SPECIMENOrdering Facility: [facility] Address: [address] [place] [address] Performed By: #### 5 8410-2 ####[facility] LABCLIA [id number] [place] [address] [place] Hemoglobin (Bld) [Mass/Vol] 14.8 g/dL Normal 13.0-17.0 [facility] Comment on above: Order Comment: Speci men Type: BLOOD SPECIMENOrdering Facility: [facility] Address: [address] [place] [address] Performed By: #### 5 8410-2 ####[facility] LABIA [id number] [place] [address] [place] MCH (RBC) [Entitic mass] 32.2 pg Normal 26.0-34.0 [facility] Comment on above: Order Comment: Speci men Type: BLOOD SPECIMENOrdering Facility: [facility] Address: [address] [place] [address] Performed By: #### 5 8410-2 ####[facility] LABIA [id number] [place] [address] [place] MCHC (RBC) [Mass/Vol] 32.7 g/dL Normal 30.5-36.0 [facility] Comment on above: Order Comment: Speci men Type: BLOOD SPECIMENOrdering Facility: [facility] Address: [address] [place] [address] Performed By: #### 5 8410-2 ####[facility] [id number] [place] [address] [place] MCV (RBC) [Entitic vol] 98.5 fL Normal 80.0-100.0 [facility] Comment on above: Order Comment: Speci men Type: BLOOD SPECIMENOrdering Facility: [facility] Address: [address] [place] [address] Performed By: #### 5 8410-2 ####[facility] LABIA [id number] [place] [address] [place] Nucleated RBC (Bld) [#/Vol] 10*3/uL Normal <0.01 [facility] Comment on above: Order Comment: Speci men Type: BLOOD SPECIMENOrdering Facility: [facility] Address: [address] [place], [place] [address] Performed By: #### 5 8410-2 ####[facility] LABCLIA [id number] [place] [address] [place] Platelet mean volume (Bld) [Entitic vol] 11.5 fL Normal 9.0-12.7 [facility] Comment on above: Order Comment: Speci men Type: BLOOD SPECIMENOrdering Facility: [facility] Address: [address] [place] [address] Performed By: #### 5 8410-2 ####[facility] LABCLIA [id number] [place] [address] [place] Platelets (Bld) [#/Vol] 200 10*3/uL Normal 150-400 [facility] Comment on above: Order Comment: Speci men Type: BLOOD SPECIMENOrdering Facility: [facility] Address: [address] [place] [address] Performed By: #### 5 8410-2 ####[facility] LABCLIA [id number] [place] [address] [place] RBC (Bld) [#/Vol] 4.60 10*6/uL Normal 4.20-6.00 [facility] Comment on above: Order Comment: Speci men Type: BLOOD SPECIMENOrdering Facility: [facility] Address: [address] [place] [address] Performed By: #### 5 8410-2 ####[facility] LABCLIA [id number] [place] [id number] [place] WBC (Bld) [#/Vol] 9.17 10*3/uL Normal 3.70-11.00 [facility] Comment on above: Order Comment: Speci men Type: BLOOD SPECIMENOrdering Facility: [facility] Address: [address] [place] [address] Performed By: #### 5 8410-2 ####[facility] LABCLIA [id number] [facility]AS[facility]RID[facility] MEDICAL CENTERGrace [address] [address] [facility] CNOVon 10-27-2024 CNOV Office Visit (INTMWS ) DENNY GOMEZ ([id number]) 1955 M Date Time Provider Department 10/27/24 2:00 PM MALU ROWE INTMWS During your visit today, we recorded the following information about you: Pulse Blood pressure Weight 67/minute 113/73 69.6 kg Malu Rowe MD 10/27/2024 3:11 PM Signed This note was created using [employer]. Subjective Denny Gomez is a 69 year old male. Patient presents with: F/U 6 months: is a smoker and would like to have chest checked SUBJECTIVE: Denny oGmez is a 69 year old year old gentleman here today for 6 month follow up appointment for review of medical conditions. Denny is a 69-year-old male, with a history of smoking, presenting for a 6-month follow-up and concerns about weight loss. Denny reports gradual weight loss since last year, with a current weight of 153 lbs, down from a previous weight of 160 lbs. He notes fluctuations in weight, with a recorded high of 167 lbs and a low of 148 lbs in 2016. He denies any changes in diet or activity level corresponding with the weight loss, stating he eats "good" and maintains a consistent eating pattern of two meals a day, sometimes one. He denies intentionally trying to lose weight and does not attempt to increase meal size to gain weight, as he feels "yucky" if he eats too much. He denies any changes in vision, fevers, chills, constipation, diarrhea, dysuria, hematuria, or hematochezia. He also denies any exacerbation of arthritis symptoms. Denny has a smoking history of a quarter pack per day for 15 years, starting at age 15 in 1970. He denies any increase in smoking beyond a quarter pack per day, except occasionally when upset. He denies hemoptysis, chest pain, or dyspnea, and is able to maintain his usual activities without needing to slow down or stop. He has a history of a chronic cough, which he attributes to smoking. He is not currently using Dulera or albuterol inhalers frequently. Denny is currently taking rosuvastatin, citalopram, amlodipine, Flomax, ProScar, and vitamin D 5000 IU daily. He has discontinued calcium supplements. He expresses a desire to have his prescriptions filled for a 90-day supply. PAST MEDICAL HISTORY Diagnosis Date Abnormal hemoglobin (Hgb) ([facility]) 04/07/2020 Hx: POD2 labs with drop in hemoglobin to 8.4 from baseline 10.6; transfused 1u PRBC POD2 A: asymptomatic, no associated tachycardia or hypotension P: f/u AM CBC Adenocarcinoma of prostate ([facility]) 03/25/2023 Anxiety and depression BPH (benign prostatic hyperplasia) Carotid artery stenosis, asymptomatic, left COPD (chronic obstructive pulmonary disease) ([facility]) Critical lower limb ischemia ([facility]) Essential hypertension History: home Norvasc, lisinopril Assessment: MAP 65-85 mmHg with goals of normotension Plan: Resumed amlodipine, holding lisinopril Facial swelling 04/05/2020 Hx: facial swelling noted this morning A: no stridor or dysphagia P: Decadron 8mg q6 for 4 doses complete, facial swelling resolved Will continue to monitor Iliac artery injury, left, initial encounter 04/04/2020 History: post op, iliac rupture during OR Assessment: 04/04/2020 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 BP control . 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 finasteride (PROSCAR) 5 mg tablet Take 5 mg by mouth once daily. tamsulosin (FLOMAX) 0.4 mg Take 0.4 mg by mouth once daily. mometasone-formoterol (DULERA) 100-5 mcg/actuation inhaler Inhale 2 Puffs as instructed twice daily. rosuvastatin (CRESTOR) 40 mg tablet Take 1 tablet by mouth once daily. citalopram (CELEXA) 40 mg tablet Take 1 tablet by mouth once daily. amLODIPine (NORVASC) 5 mg tablet Take 1 tablet by mouth once daily. albuterol HFA (PROAIR HFA) 90 mcg/actuation inhaler Inhale 2 Puffs as instructed every 4 hours as needed for up to 15 days. No current facility-administered medications for this visit. Review of Systems Objective BP 113/73 Pulse 67 Wt 69.6 kg (153 lb 7 oz) SpO2 98% BMI 23.33 kg/m? Physical Exam Latest Ref Rng 03/25/2023 03/26/2023 07/03/2023 11/13/2023 04/29/2024 WBC 3.70 - 11.00 k/uL 8.81 9.31 RBC 4.20 - 6.00 m/uL 4.67 4.79 Hemoglobin 13.0 - 17.0 g/dL 15.3 15.7 Hematoc (more content not included)... Normal [facility] Comprehensive metabolic 2000 panelon 10-27-2024 Albumin [Mass/Vol] 4.6 g/dL Normal 3.9-4.9 [facility] Comment on above: Order Comment: Speci men Type: BLOOD SPECIMEN Ordering Facility: [facility] Address: [address] [place] [address] Performed By: #### 5 7021-8 #### [facility] CLIA [id number] [address] [place] [address] [place] ALP [Catalytic activity/Vol] 96 U/L Normal 38-113 [facility] Comment on above: Order Comment: Speci men Type: BLOOD SPECIMEN Ordering Facility: [facility] Address: [address] [place] [address] Performed By: #### 5 7021-8 #### [facility] CLIA [id number] [facility] [place] [address] [place] ALT [Catalytic activity/Vol] 24 U/L Normal 10-54 [facility] Comment on above: Order Comment: Speci men Type: BLOOD SPECIMEN Ordering Facility: [facility] Address: [address] [place] [address] Performed By: #### 5 7021-8 #### [facility] CLIA [id number] [address] [place] [address] [place] Anion gap [Moles/Vol] 13 mmol/L Normal 8-15 [facility] Comment on above: Order Comment: Speci men Type: BLOOD SPECIMEN Ordering Facility: [facility] Address: [address] [place] [address] Performed By: #### 5 7021-8 #### [facility] CLIA [id number] [address] [place] [address] [place] AST [Catalytic activity/Vol] 24 U/L Normal 14-40 [facility] Comment on above: Order Comment: Speci men Type: BLOOD SPECIMEN Ordering Facility: [facility] Address: [address] [place] [address] Performed By: #### 5 7021-8 #### [facility] CLIA [id number] [address] [place] [address] [place] Bilirubin [Mass/Vol] 0.4 mg/dL Normal 0.2-1.3 [facility] Comment on above: Order Comment: Speci men Type: BLOOD SPECIMEN Ordering Facility: [facility] Address: [address] [place] [address] Performed By: #### 5 7021-8 #### [facility] CLIA [id number] [address] [place] [address] [place] Calcium [Mass/Vol] 9.9 mg/dL Normal 8.5-10.2 [facility] Comment on above: Order Comment: Speci men Type: BLOOD SPECIMEN Ordering Facility: [facility] Address: [address] [place] [address] Performed By: #### 5 7021-8 #### [facility] CLIA [id number] [address] [place] [address] [place] Chloride [Moles/Vol] 106 mmol/L Normal 98-107 [facility] Comment on above: Order Comment: Speci men Type: BLOOD SPECIMEN Ordering Facility: [facility] Address: [address] [place] [address] Performed By: #### 5 7021-8 #### [facility] CLIA [id number] [address] [place] [address] [place] CO2 [Moles/Vol] 22 mmol/L Normal 22-30 [facility] Comment on above: Order Comment: Speci men Type: BLOOD SPECIMEN Ordering Facility: [facility] Address: [address] [place] [address] Performed By: #### 5 7021-8 #### [facility] CLIA [id number] [address] [place] [address] [place] Creatinine [Mass/Vol] 0.90 mg/dL Normal 0.73-1.22 [facility] Comment on above: Order Comment: Speci men Type: BLOOD SPECIMEN Ordering Facility: [facility] Address: [address] [place] [address] Performed By: #### 5 7021-8 #### [facility] CLIA [id number] [address] [place] [address] [place] Creatinine and Glomerular filtration rate.predicted panel (S/P/Bld) 92 mL/min/1.73m??? Normal >=60 [facility] Comment on above: Order Comment: Speci men Type: BLOOD SPECIMEN Ordering Facility: [facility] Address: [address] [place] [address] Result Comment: Sheridan mated Glomerular Filtration Rate (eGFR) is calculated using the 2020 CKD-EPI creatinine equation. This equation utilizes serum creatinine, sex, and age as parameters. The creatinine assay has traceable calibration to isotope dilution-mass spectrometry. Refer to KDIGO guidelines for clinical interpretation. In patients with unstable renal function, e.g. those with acute kidney injury, the eGFR may not accurately reflect actual GFR. Performed By: #### 5 7021-8 #### [facility] CLIA [id number] [address] [place] [address] [place] Glucose [Mass/Vol] 85 mg/dL Normal 74-99 [facility] Comment on above: Order Comment: Sagar guan Type: BLOOD SPECIMEN Ordering Facility: [facility] Address: [address] [place] [address] Result Comment: The [place] Diabetes Association (ADA) provides guidance for cutoff values for fasting glucose and random glucose. The ADA defines fasting as no caloric intake for at least 8 hours. Fasting plasma glucose results between 100 to 125 mg/dL indicate increased risk for diabetes (prediabetes). Fasting plasma glucose results greater than or equal to 126 mg/dL meet the criteria for diagnosis of diabetes. In the absence of unequivocal hyperglycemia, results should be confirmed by repeat testing. In a patient with classic symptoms of hyperglycemia or hyperglycemic crisis, random plasma glucose results greater than or equal to 200 mg/dL meet the criteria for diagnosis of diabetes. Reference: Standards of Medical Care in Diabetes 2016, [place] Diabetes Association. Diabetes Care. 2016.39(Suppl 1). Performed By: #### 5 7021-8 #### [facility] CLIA [id number] [address] [place] [address] [place] Potassium [Moles/Vol] 5.2 mmol/L High 3.7-5.1 [facility] Comment on above: Order Comment: Sagar guan Type: BLOOD SPECIMEN Ordering Facility: [facility] Address: [address] [place] [address] Performed By: #### 5 7021-8 #### [facility] CLIA [id number] [address] [place] [address] [place] Protein [Mass/Vol] 7.1 g/dL Normal 6.3-8.0 [facility] Comment on above: Order Comment: Sagar guan Type: BLOOD SPECIMEN Ordering Facility: [facility] Address: [address] [place] [address] Performed By: #### 5 7021-8 #### [facility] CLIA [id number] [address] [place] [address] [place] Sodium [Moles/Vol] 141 mmol/L Normal 136-144 [facility] Comment on above: Order Comment: Speci men Type: BLOOD SPECIMEN Ordering Facility: [facility] Address: [address] [place] [address] Performed By: #### 5 7021-8 #### [facility] CLIA [id number] [address] [place] [address] [place] Urea nitrogen [Mass/Vol] 15 mg/dL Normal 9-24 [facility] Comment on above: Order Comment: Speci men Type: BLOOD SPECIMEN Ordering Facility: [facility] Address: [address] [place] [address] Performed By: #### 5 7021-8 #### [facility] CLIA [id number] [address] [place] [address] [place] Magnesium SerPl-mCncon 10-27 Magnesium [Mass/Vol] 2.1 mg/dL Normal 1.7-2.3 [facility] Comment on above: Order Comment: Speci men Type: BLOOD SPECIMEN Ordering Facility: [facility] Address: [address] [place] [address] Performed By: #### 5 7021-8 #### [facility] CLIA [id number] [address] [place] [address] [place] T3Free SerPl-mCncon 10-28-19 25 Free T3 [Mass/Vol] 2.4 pg/mL Normal 2.3-4.1 [facility] Comment on above: Order Comment: Speci men Type: BLOOD SPECIMEN Ordering Facility: [facility] Address: [address] [place] [address] Performed By: #### 5 7021-8 #### [facility] CLIA [id number] [address] [place] [address] [place] T4 Free SerPl-mCncon 025 Free T4 [Mass/Vol] 1.2 ng/dL Normal 0.9-1.7 [facility] Comment on above: Order Comment: Speci men Type: BLOOD SPECIMEN Ordering Facility: [facility] Address: [address] [place] [address] Performed By: #### 5 7021-8 #### [facility] CLIA [id number] [address] [place] [address] [place] TSH SerPl-aCncon 10-27-2024 TSH Qn 0.745 m[IU]/L Normal 0.270-4.200 [facility] Comment on above: Order Comment: Speci men Type: BLOOD SPECIMEN Ordering Facility: [facility] Address: [address] [place] [address] Performed By: #### 5 7021-8 #### [facility] CLIA [id number] [address] [place] [address] [place] XR CHEST 2V FRONTAL/LATon XR CHEST 2V FRONTAL/LAT * * *Final Repor t* * * DATE OF EXAM: Oct 27 2024 3:41PM WOX [id number] - XR CHEST 2V FRONTAL/LAT / PROCEDURE REASON: multiple diagnoses * * * * Physician Interpretation * * * * EXAMINATION: CHEST RADIOGRAPH (2 VIEW FRONTAL and LATERAL) CLINICAL HISTORY: Chronic cough Smoker unmotivated to quit MQ: [id number] EXAM DATE/TIME: 10/27/2024 3:41 PM COMPARISON: 03/25/2023 and 04/04/2020 RESULT: Lines, tubes, and devices: None. Lungs and pleura: No consolidation. Vague left mid lung field density of 1 cm. Overlying left-sided posterior eighth rib.. No pleural effusion. No pneumothorax. Cardiomediastinal silhouette: Normal cardiomediastinal silhouette. Bones and soft tissues: Unremarkable. IMPRESSION: Vague midlung field density on the left. Possibly overlapping normal structures. CT recommended for complete evaluation, however. No acute radiographic abnormality. Incidental Finding: Follow-up Acuity: Incidental Finding: Suspicious appearing incidentally detected nodular lung density on CXR Routing Code: RI_1 Recommendation: CT Chest WO IVCON Time Frame: in 4 weeks COMMUNICATION:? Results will be communicated with the ordering provider via [employer] staff message by [employer] within 2 business days of report finalization. Information Services Manager: TORY Transcribe Date/Time: Oct 28 2024 2:36P Dictated by : GHAZALA DUBON MD This examination was interpreted and the report reviewed and electronically signed by: GHAZALA DUBON MD on Oct 28 2024 2:39PM EST [id number] ACTIONABLE Invalid Interpretation Code [facility] CNOVon 09-27-2024 CNOV Office Visit (INTMWS ) DENNY GOMEZ ([id number]) 1955 M Date Time Provider Department 09/27/24 7:40 PM ART DONOVAN INTMWS During your visit today, we recorded the following information about you: Temperature Pulse Blood pressure Weight 98.5 degrees 67/minute 116/62 70.5 kg Art Donovan MD 09/27/2024 8:07 PM Signed This note was created using Goodpatch. Subjective Patient presents with: Cough Nasal Congestion Denny Gomez is a 69 year old male with above symptoms that started today. He was here with his , who started having upper respiratory infection symptoms yesterday. He had no other concerns. Review of Systems Constitutional: Negative for chills and fever. HENT: Positive for congestion. Negative for ear pain and sore throat. Respiratory: Positive for cough. Negative for shortness of breath and wheezing. Gastrointestinal: Negative for diarrhea, nausea and vomiting. Neurological: Negative for headaches. ACTIVE PROBLEM LIST Anxiety and Depression Mixed Hyperlipidemia Essential Hypertension Paget's Bone Disease Elevated Psa, Less Than 10 Ng/Ml History of Cerebral Hemorrhage Vision Loss, Bilateral Homonymous Hemianopsia, Right Ocular Hypertension, Bilateral Optic Cupping of Both Eyes Bilateral Carotid Artery Stenosis Pad (Peripheral Artery Disease) (Hcc) S/P Carotid Endarterectomy H/O Ischemic Left Mca Stroke Intracranial Atherosclerosis Atherosclerosis of [place] Artery of Extremity With Intermittent Claudication ([facility]) Vitamin D Deficiency Primary Open Angle Glaucoma (Poag) of Right Eye, Moderate Stage Primary Open Angle Glaucoma (Poag) of Left Eye, Moderate Stage Hypercholesteremia Status Post Cataract Extraction and Insertion of Intraocular Lens of Left Eye Status Post Cataract Extraction and Insertion of Intraocular Lens of Right Eye Aortoiliac Occlusive Disease ([facility]) 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 citalopram (CELEXA) 40 mg tablet Take 1 tablet by mouth once daily. amLODIPine (NORVASC) 5 mg tablet Take 1 tablet by mouth once daily. rosuvastatin (CRESTOR) 40 mg tablet Take 1 tablet by mouth once daily. finasteride (PROSCAR) 5 mg tablet Take 5 mg by mouth once daily. tamsulosin (FLOMAX) 0.4 mg Take 0.4 mg by mouth once daily. mometasone-formoterol (DULERA) 100-5 mcg/actuation inhaler Inhale 2 Puffs as instructed twice daily. albuterol HFA (PROAIR HFA) 90 mcg/actuation inhaler Inhale 2 Puffs as instructed every 4 hours as needed for up to 15 days. zoledronic acid/mannitol-water (RECLAST INTRAVENOUS) Inject 1 Each intravenously every year. Last infusion: 11/13/2023 (Patient not taking: Reported on 07/19/2024) calcium carbonate/vitamin D3 (CALCIUM 600 + D,3, ORAL) Take 1 tablet by mouth once daily. (Patient not taking: Reported on 07/19/2024) calcium carbonate-vitamin D3 1,000 mg-20 mcg (800 unit) tab Take 1 tablet by mouth once daily. (Patient not taking: Reported on 04/30/2024) trospium (SANCTURA) 20 mg tablet Take 20 mg by mouth twice daily. (Patient not taking: Reported on 04/30/2024) No current facility-administered medications for this visit. Objective BP 116/62 (BP Site: Left Arm, BP Position: Sitting, BP Cuff Size: Large Adult) Pulse 67 Temp 36.9 ?C (98.5 ?F) (Temporal) Wt 70.5 kg (155 lb 6.8 oz) BMI 23.63 kg/m? Physical Exam Constitutional: General: He is not in acute distress. Appearance: He is not ill-appearing. HENT: Right Ear: Tympanic membrane normal. Left Ear: Tympanic membrane normal. Nose: Congestion present. No rhinorrhea. Mouth/Throat: Mouth: Mucous membranes are moist. Pharynx: Oropharynx is clear. Eyes: Conjunctiva/sclera: Conjunctivae normal. Cardiovascular: Rate and Rhythm: Normal rate and regular rhythm. Pulmonary: Effort: No respiratory distress. Breath sounds: No wheezing, rhonchi or rales. Lymphadenopathy: Cervical: No cervical adenopathy. Neurological: Mental Status: He is alert. Assessment and Plan 1. Acute cough - ICD9: 786.2, ICD10: R05.1 (primary diagnosis) See printed instructions or information. Further recommendations will depend on results. - COVID AND INFLUENZA A/B AND RSV PCR, ROUTINE 2. Chronic obstructive pulmonary disease, unspecified COPD type (HCC) - ICD9: 496, ICD10: J44.9 Stable. MD Filippo Harrison (more content not included)... Normal [facility] VISUAL FIELD 24-2 OU (BOTH E YES)on 09-13-2024 [facility] Radiology Study observation (narrative) [facility] CNOVon 07-19-2024 CNOV Office Visit (VASSMN ) DENNY GOMEZ ([id number]) 1955 M Date Time Provider Department 07/19/24 3:30 PM CARLOS A KENNEDY During your visit today, we recorded the following information about you: Pulse Blood pressure 74/minute 123/63 Carlos A Kennedy MD 07/20/2024 8:22 AM Signed [facility] [place] [facility]PART[facility] OF VASCULAR SURGERY OUTPATIENT VISIT DATE July 19, 2024 OUTPATIENT VISIT TYPE ESTABLISHED SERVICE DATE: 07/19/2024 SERVICE TIME: 3:30 PM PRIMARY CARE PHYSICIAN: Malu Rowe MD HISTORY OF PRESENT ILLNESS: Mr. Gomez is a 69 year old male who presents today for a vascular surgery follow-up visit for his SOWMYA and PAD. He is s/p BL CEA, (L 2019, R?) and bilateral ileofemoral endarterectomies and profundaplasties with bilateral DANIELLE stenting, L EIA stenting, and R EIA stenting (2019). Patient denies any pain in his legs at rest or with walking. He is unlimited in his walking. He has no wounds. He denies symptoms of amaurosis fugax, one sided weakness, facial droop, and aphasia. 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 He is currently smoking, unfortunately his has cancer and he has been smoking more with the stress of this. He has a history of a 5mm intracranial aneurysm that he has not had surveillance on since 2020. PAST MEDICAL HISTORY Diagnosis Date Abnormal hemoglobin [...] HISTORY Social History Tobacco Use Smoking status: Every Day Current packs/day: 0.25 Average packs/day: 0.3 packs/day for 15.0 years (3.8 ttl pk-yrs) Types: Cigarettes Smokeless tobacco: Never Vaping Use Vaping status: Never Used Substance Use Topics Alcohol use: Not Currently Drug use: Not Currently MEDICATIONS: zoledronic acid/mannitol-water (RECLAST INTRAVENOUS) Inject 1 Each intravenously every year. Last infusion: 11/13/2023 cholecalciferol (VITAMIN D-3) 5,000 unit tab Take 5,000 Units by mouth once daily. calcium carbonate/vitamin D3 (CALCIUM 600 + D,3, ORAL) Take 1 tablet by mouth once daily. calcium carbonate-vitamin D3 1,000 mg-20 mcg (800 unit) tab Take 1 tablet by mouth once daily. (Patient not taking: Reported on 04/30/2024) citalopram (CELEXA) 40 mg tablet Take 1 tablet by mouth once daily. amLODIPine (NORVASC) 5 mg tablet Take 1 tablet by mouth once daily. rosuvastatin (CRESTOR) 40 mg tablet Take 1 tablet by mouth once daily. finasteride (PROSCAR) 5 mg tablet Take 5 mg by mouth once daily. tamsulosin (FLOMAX) 0.4 mg Take 0.4 mg by mouth once daily. trospium (SANCTURA) 20 mg tablet Take 20 mg by mouth twice daily. (Patient not taking: Reported on 04/30/2024) mometasone-formoterol (DULERA) 100-5 mcg/actuation inhaler Inhale 2 Puffs as instructed twice daily. (Patient taking differently: Inhale 2 Puffs as instructed as needed.) albuterol HFA (PROAIR HFA) 90 mcg/actuation inhaler Inhale 2 Puffs as instructed every 4 hours as needed for up to 15 days. ALLERGIES: ALLERGIES Allergen Reactions Seasonal Allergies Other: See Comments Sinus, runny nose PHYSICAL EXAM: There were no vitals taken for this visit. General: Alert and oriented, No acute distress Integumentary: Normal color, no rash, no lesions. HEENT: EOM, pupils equal, round and reactive. Cardiovascular: Pulse regular. Lungs: Normal breath sounds, no wheezes or crackles. Abdomen: Soft, non-tender, no rigidity. Extremities: No deformity, no edema or tenderness, no joint swelling or clubbing. Neurological: Normal cognition and motor skills. Vascular: Bilateral legs warm, no woun (more content not included)... Normal [facility] PVR ANK/HO/TOE [facility] on 07-19-2024 PVR ANK/HO/TOE [facility] Non-Invasive Vascular Laboratory [facility] F30 Lower Extremity Arterial Physiology Study Bilateral/Complete Date of service/time: 07/19/2024 1:35:57 PM Name: MR. DENNY GOMEZ Date of : 1955 Age: 69 years Gender: M Clinical Indication Peripheral arterial disease. TECHNIQUE -------- An arterial physiological examination was performed, including measurement of blood pressures using continuous wave Doppler and recording of plethysmographic with or without Doppler waveforms at the below-mentioned limb segments. FINDINGS -------- RIGHT SIDE AT REST Right Pressures Brachial: 127 mmHg Ankle dorsalis pedis: 85 mmHg LEONARDO: 0.67 Ankle posterior tibial: 84 mmHg LEONARDO: 0.66 Digit: 36 mmHg Right PVR Waveforms Ankle: Moderately dampened. Transmetatarsal: Moderately dampened. Digit: Moderately dampened. LEFT SIDE AT REST Left Pressures Brachial: 125 mmHg Ankle dorsalis pedis: 80 mmHg LEONARDO: 0.63 Ankle posterior tibial: 94 mmHg LEONARDO: 0.74 Digit: 45 mmHg Left PVR Waveforms Ankle: Moderately dampened. Transmetatarsal: Moderately dampened. Digit: Moderately dampened. IMPRESSION Compared to prior study, right ankle brachial index previously .63, today 0.67; left ankle brachial index previously .67, today 0.74. RIGHT SIDE Resting right ankle brachial index: 0.67 Right toe brachial index: 0.28 Abnormal ankle brachial index at rest diagnostic of peripheral artery disease. Abnormal toe brachial index at rest is evidence of peripheral artery disease. Right ankle: Moderate disease at rest. LEFT SIDE Resting left ankle brachial index: 0.74 Left toe brachial index: 0.35 Abnormal ankle brachial index at rest diagnostic of peripheral artery disease. Abnormal toe brachial index at rest is evidence of peripheral artery disease. Left ankle: Mild disease at rest. Technologist: Kathryn Leigh RVT Ordering physician: CARLOS A KENNEDY Interpreting physician: Debbie Alarcon MD Final CC [facility] : [id number] oDynamicsSISUID See Link below for Image Normal [facility] US CAROTID ARTERIES [facility] LABon 07-19-2024 US CAROTID ARTERIES [facility] Non-Invasive Vascular Laboratory [facility] F30 Carotid Duplex Bilateral/Complete Date of service/time: 07/19/2024 1:35:43 PM Name: MR. DENNY GOMEZ Date of : 1955 Age: 69 years Gender: M Clinical Indication Follow-up study on a patient with known carotid disease and Right endarterectomy done at outside hospital in the . Status post left common carotid and internal carotid endarterectomy 03/24/2020 patch type pericardium. TECHNIQUE -------- A carotid duplex ultrasound examination was performed, including grayscale imaging and color Doppler and spectral Doppler examination of the below mentioned arteries. FINDINGS -------- RIGHT SIDE Common carotid artery: Origin: PSV: 100 cm/s. EDV: 18 cm/s. Proximal: PSV: 89 cm/s. EDV: 16 cm/s. Mid: PSV: 72 cm/s. EDV: 9 cm/s. Distal: PSV: 190 cm/s. EDV: 24 cm/s. Moderate heterogeneous calcified and shadowing plaque from proximal to distal. Internal carotid artery: Origin: PSV: 166 cm/s. EDV: 20 cm/s. Proximal: PSV: 122 cm/s. EDV: 28 cm/s. Mid: PSV: 72 cm/s. EDV: 18 cm/s. Distal: PSV: 84 cm/s. EDV: 21 cm/s. ICA/CCA Ratio: 0.9 External carotid artery: Proximal: PSV: 174 cm/s. EDV: 21 cm/s. Subclavian artery: Origin: PSV: 126 cm/s. EDV: 0 cm/s. Proximal: PSV: 153 cm/s. EDV: 0 cm/s. Mild/moderate heterogeneous calcified plaque at origin. Innominate artery: PSV: 117 cm/s. EDV: 13 cm/s. Mild/moderate heterogeneous plaque at distal. Vertebral artery: PSV: 53 cm/s. EDV: 10 cm/s. LEFT SIDE Common carotid artery: Proximal: PSV: 103 cm/s. EDV: 20 cm/s. Mid: PSV: 96 cm/s. EDV: 18 cm/s. Distal: PSV: 49 cm/s. EDV: 14 cm/s. Moderate heterogeneous calcified plaque from proximal to mid. Mild homogeneous laminated plaque at distal. Internal carotid artery: Origin: PSV: 55 cm/s. EDV: 15 cm/s. Proximal: PSV: 121 cm/s. EDV: 34 cm/s. Mid: PSV: 96 cm/s. EDV: 26 cm/s. Distal: PSV: 74 cm/s. EDV: 22 cm/s. ICA/CCA Ratio: 2.5 External carotid artery: Origin: PSV: 0 cm/s. EDV: 0 cm/s. Proximal: PSV: 52 cm/s. EDV: 10 cm/s. Subclavian artery: Proximal: PSV: 132 cm/s. EDV: 0 cm/s. Mild/moderate heterogeneous calcified plaque at proximal. Vertebral artery: PSV: 44 cm/s. EDV: 10 cm/s. IMPRESSION Please note: the new carotid interpretation criteria are used as recommended by [employer]. When compared with the prior study, of 07/22/2023 no significant change is noted on the right side and no significant change is noted on the left side. RIGHT SIDE Common carotid artery: 50-99% stenosis at distal (proximal to patch site). Endarterectomy patch at distal : 1.39 cm. Internal carotid artery: <50% stenosis consistent with mild carotid artery disease. ICA/CCA ratio likely inaccurate due to distal common carotid artery stenosis. Vertebral artery: Patent and antegrade flow noted. Innominate artery: Plaque visualized without evidence of hemodynamically significant stenosis. Subclavian artery: Plaque visualized without evidence of hemodynamically significant stenosis. LEFT SIDE Common carotid artery: Plaque visualized without evidence of hemodynamically significant stenosis. Endarterectomy patch at distal measuring 1.35 cm. Internal carotid artery: <50% stenosis consistent with mild carotid artery disease. External carotid artery: Occluded at origin, reconstituted proximal. Vertebral artery: Patent and antegrade flow noted. Subclavian artery: Plaque visualized without evidence of hemodynamically significant stenosis. Technologist: Kirsten Wilson RVT Ordering physician: CARLOS A KENNEDY Interpreting physician: Debbie Alarcon MD Final CC [facility] Image : [id number] ISUID See Link below for Image Normal [facility] LEG ARTERIAL PERIPH DAVID V LABon 07-19-2024 LEG ARTERIAL PERIPH DAVID VAS LAB Non-Invasive Vascular Laboratory [facility] F30 Lower Extremity Arterial Duplex Bilateral/Complete Date of service/time: 07/19/2024 2:20:02 PM Name: MR. DENNY GOMEZ Date of : 1955 Age: 69 years Gender: M Clinical Indication Follow up. Post operative repair surveillance 04/04/2020 Bilateral iliofem endarterectomy, bilateral common iliac artery and external iliac artery stenting. TECHNIQUE -------- An arterial duplex ultrasound examination was performed, including grayscale imaging and color Doppler and spectral Doppler examination of the below mentioned arteries. FINDINGS -------- AORTA Aorta distal: PSV: 80 cm/s. EDV: 15 cm/s. Monophasic, intermediate resistive waveform. RIGHT ARTERIES Common iliac proximal: with stent. PSV: 96 cm/s. EDV: 0 cm/s. Multiphasic waveform. Common iliac mid: with stent. PSV: 243 cm/s. EDV: 0 cm/s. Multiphasic waveform. Common iliac distal: with stent. PSV: 151 cm/s. EDV: 0 cm/s. Multiphasic waveform. External iliac proximal: with stent. PSV: 117 cm/s. EDV: 0 cm/s. Multiphasic waveform. External iliac mid: with stent. PSV: 119 cm/s. EDV: 0 cm/s. Multiphasic waveform. External iliac distal: with stent. PSV: 115 cm/s. EDV: 0 cm/s. Multiphasic waveform. Common femoral proximal: PSV: 213 cm/s. EDV: 0 cm/s. Multiphasic waveform. Common femoral mid: PSV: 172 cm/s. EDV: 0 cm/s. Multiphasic waveform. Common femoral distal: PSV: 201 cm/s. EDV: 0 cm/s. Multiphasic waveform. Profunda femoral proximal: PSV: 149 cm/s. EDV: 0 cm/s. Multiphasic waveform. Superficial femoral origin: PSV: 83 cm/s. EDV: 0 cm/s. Multiphasic waveform. Superficial femoral proximal: PSV: 52 cm/s. EDV: 0 cm/s. Multiphasic waveform. LEFT ARTERIES Common iliac proximal: with stent. PSV: 120 cm/s. EDV: 8 cm/s. Multiphasic waveform. Common iliac mid: with stent. PSV: 169 cm/s. EDV: 17 cm/s. Multiphasic waveform. Common iliac distal: with stent. PSV: 134 cm/s. EDV: 0 cm/s. Multiphasic waveform. External iliac proximal: with stent. PSV: 138 cm/s. EDV: 0 cm/s. Multiphasic waveform. External iliac mid: with stent. PSV: 95 cm/s. EDV: 0 cm/s. Multiphasic waveform. External iliac distal: PSV: 107 cm/s. EDV: 0 cm/s. Multiphasic waveform. Common femoral proximal: PSV: 149 cm/s. EDV: 0 cm/s. Multiphasic waveform. Common femoral mid: PSV: 169 cm/s. EDV: 0 cm/s. Multiphasic waveform. Common femoral distal: PSV: 146 cm/s. EDV: 0 cm/s. Multiphasic waveform. Profunda femoral proximal: PSV: 161 cm/s. EDV: 0 cm/s. Multiphasic waveform. Superficial femoral origin: PSV: 0 cm/s. EDV: 0 cm/s. Absent waveform. Superficial femoral proximal: PSV: 0 cm/s. EDV: 0 cm/s. Absent waveform. IMPRESSION Compared to prior study of 05/11/2020, right common iliac artery 50-99% in-stent stenosis noted at mid. Unable to adequately appreciate previously noted 50-99% stenosis within the left common femoral artery. AORTA Aorta distal: plaque noted without evidence of hemodynamically significant stenosis . RIGHT SIDE Common iliac artery mid: 50-99% stenosis . Stent noted throughout, in-stent stenosis noted at mid vessel. External iliac artery : patent . Stent noted throughout. Common femoral artery : patent . Profunda femoral artery proximal: patent . Superficial femoral artery origin to proximal: plaque noted without evidence of hemodynamically significant stenosis . LEFT SIDE Common iliac artery : patent . Stent noted throughout. External iliac artery : patent . Stent noted from proximal to mid. Common femoral artery : patent . Profunda femoral artery proximal: patent . Superficial femoral artery origin to proximal: occluded . Known from prior exam done 05/11/2020. Technologist: Kirsten Wilson Santi Ordering physician: CARLOS A KENNEDY Interpreting physician: Debbie Alarcon MD Final CC [facility] : [id number] ISUID See Link below for Image Normal [facility] Lower extremity artery - bilateralon 07-19-2024 Non-Invasive Vascular Laboratory [facility] [place] F30 Lower Extremity Arterial Duplex Bilateral/Complete Date of service/time: 07/19/2024 2:20:02 PM Name: MR. DENNY GOMEZ Date of : 1955 Age: 69 years Gender: M Clinical Indication Follow up. Post operative repair surveillance 04/04/2020 Bilateral iliofem endarterectomy, bilateral common iliac artery and external iliac artery stenting. TECHNIQUE -------- An arterial duplex ultrasound examination was performed, including grayscale imaging and color Doppler and spectral Doppler examination of the below mentioned arteries. FINDINGS -------- AORTA Aorta distal: PSV: 80 cm/s. EDV: 15 cm/s. Monophasic, intermediate resistive waveform. RIGHT ARTERIES Common iliac proximal: with stent. PSV: 96 cm/s. EDV: 0 cm/s. Multiphasic waveform. Common iliac mid: with stent. PSV: 243 cm/s. EDV: 0 cm/s. Multiphasic waveform. Common iliac distal: with stent. PSV: 151 cm/s. EDV: 0 cm/s. Multiphasic waveform. External iliac proximal: with stent. PSV: 117 cm/s. EDV: 0 cm/s. Multiphasic waveform. External iliac mid: with stent. PSV: 119 cm/s. EDV: 0 cm/s. Multiphasic waveform. External iliac distal: with stent. PSV: 115 cm/s. EDV: 0 cm/s. Multiphasic waveform. Common femoral proximal: PSV: 213 cm/s. EDV: 0 cm/s. Multiphasic waveform. Common femoral mid: PSV: 172 cm/s. EDV: 0 cm/s. Multiphasic waveform. Common femoral distal: PSV: 201 cm/s. EDV: 0 cm/s. Multiphasic waveform. Profunda femoral proximal: PSV: 149 cm/s. EDV: 0 cm/s. Multiphasic waveform. Superficial femoral origin: PSV: 83 cm/s. EDV: 0 cm/s. Multiphasic waveform. Superficial femoral proximal: PSV: 52 cm/s. EDV: 0 cm/s. Multiphasic waveform. LEFT ARTERIES Common iliac proximal: with stent. PSV: 120 cm/s. EDV: 8 cm/s. Multiphasic waveform. Common iliac mid: with stent. PSV: 169 cm/s. EDV: 17 cm/s. Multiphasic waveform. Common iliac distal: with stent. PSV: 134 cm/s. EDV: 0 cm/s. Multiphasic waveform. External iliac proximal: with stent. PSV: 138 cm/s. EDV: 0 cm/s. Multiphasic waveform. External iliac mid: with stent. PSV: 95 cm/s. EDV: 0 cm/s. Multiphasic waveform. External iliac distal: PSV: 107 cm/s. EDV: 0 cm/s. Multiphasic waveform. Common femoral proximal: PSV: 149 cm/s. EDV: 0 cm/s. Multiphasic waveform. Common femoral mid: PSV: 169 cm/s. EDV: 0 cm/s. Multiphasic waveform. Common femoral distal: PSV: 146 cm/s. EDV: 0 cm/s. Multiphasic waveform. Profunda femoral proximal: PSV: 161 cm/s. EDV: 0 cm/s. Multiphasic waveform. Superficial femoral origin: PSV: 0 cm/s. EDV: 0 cm/s. Absent waveform. Superficial femoral proximal: PSV: 0 cm/s. EDV: 0 cm/s. Absent waveform. IMPRESSION Compared to prior study of 05/11/2020, right common iliac artery 50-99% in-stent stenosis noted at mid. Unable to adequately appreciate previously noted 50-99% stenosis within the left common femoral artery. AORTA Aorta distal: plaque noted without evidence of hemodynamically significant stenosis . RIGHT SIDE Common iliac artery mid: 50-99% stenosis . Stent noted throughout, in-stent stenosis noted at mid vessel. External iliac artery : patent . Stent noted throughout. Common femoral artery : patent . Profunda femoral artery proximal: patent . Superficial femoral artery origin to proximal: plaque noted without evidence of hemodynamically significant stenosis . LEFT SIDE Common iliac artery : patent . Stent noted throughout. External iliac artery : patent . Stent noted from proximal to mid. Common femoral artery : patent . Profunda femoral artery proximal: patent . Superficial femoral artery origin to proximal: occluded . Known from prior exam done 05/11/2020. Technologist: Kirsten Wilson RVT Ordering physician: CARLOS A KENNEDY Interpreting physician: Debbie Alarcon MD Final See Link below for Image [facility] OCT OPTIC NERVE CIRRUS OU (B OTH EYES)on 03-29-2024 [facility] Radiology Study observation (narrative) [facility] Basophil percentageOrdered B y: EDILBERTO Rider on 09-17-2023 Basophil percentage 1.07 ng/mL 0.0-4.0 [facility] Comment on above: This test was perfor med using the TPSA assay method for the[employer] chemistry system. Values obtained with differentassay methods cannot be used interchangably.When changing PSA assays in the course of monitoring apatient, additional sequential testing should be carriedout to confirm baseline values. No Panel Informationon 05-01 [facility] Basophil percentageOrdered B y: EDILBERTO Rider on 04-02-2023 Chloride [Moles/Vol] 109 mmol/L 98-107 [facility] Glucose [Mass/Vol] 97 mg/dL 74-106 [facility] Potassium [Moles/Vol] 4.1 mmol/L 3.5-5.1 [facility] Sodium [Moles/Vol] 139 mmol/L 136-145 [facility] Laboratory - Chemistry and C hemistry - challengeOrdered By: EDILBERTO Rider on 04-02-2023 CO2 [Moles/Vol] 26.0 mmol/L 21.0-32.0 [facility] Urea nitrogen/Creatinine [Mass ratio] 21.0 mg/mg 10-20 [facility] No Panel InformationOrdered By: EDILBERTO Rider on 04-02-2023 Estimated GFR (MDRD) Amer 101 mL/min >60 [facility] Comment on above: GFR Calc Estimated GFR (MDRD) Non-Af Amer 83 mL/min >60 [facility] Comment on above: Non- GFR Calc Prostate Specific Antigen Total 1.07 ng/mL 0.0-4.0 [facility] Comment on above: This test was perfor med using the TPSA assay method for [employer] chemistry system. Values obtained with differentassay methods cannot be used interchangably.When changing PSA assays in the course of monitoring apatient, additional sequential testing should be carriedout to confirm baseline values. Office Visit (Urology)on Follow-up visit Diagnoses/Problems Assessed Current every day smoker (305.1) (F17.200) Benign prostatic hyperplasia with lower urinary tract symptoms (600.01) (N40.1) Elevated PSA (790.93) (R97.20) Nocturia (788.43) (R35.1) Prostate cancer screening (V76.44) (Z12.5) Patient Discussion/Summary CT ordered for Hx of hematuria and Weight loss Cysto scheduled All available PSA values reviewed, Options discussed. Questions answered. New PSA ordered MRI reviewed PAst Bx reviewed Diet changes for prostate health discussed and educational information given. Pros/Cons of prostate health supplements discussed. Treatment options for LUTS reviewed Discussed timed voiding. Discussed fluid and caffeine intake Flomax and Proscar refilled F/U Cysto after CT and labs Chief Complaint 10 mo w/ psa History of Present IllnessPatient has hx of elevated PSA. Most recent PSA was 1.05 on 05/25. Prior PSA was 4.0 (11/23) Previous PSA was 1.86 on 05/24, prior was 1.86 (12/22) on Proscar since 10/22. He states he having unexpected weight loss 15 pounds within the last few months. Normal MRI on 02/22. 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 Hx of gross hematuria. Last cysto was on 10/2020..... No recent sx. Chronic BPH sx are mild and stable. Some urgency and frequency. Urge incontinence . Denies dysuria. Denies hematuria. Nocturia x1-2. . He is taking Flomax and proscar. ED is chronic. Review of Systems Constitutional: No fever, No chills. Eye: Negative. Ear/Nose/Mouth/Throat: Negative. Respiratory: No shortness of breath, No cough. Cardiovascular: No chest pain, No peripheral edema. Gastrointestinal: No nausea, Genitourinary: Negative except as documented in history of present illness. Hematology/Lymphatics: Patient denies being on blood thinners.. Endocrine: Negative. Immunologic: Not immunocompromised. Musculoskeletal: Negative Integumentary: Negative. Neurologic: Alert and oriented X4. Psychiatric: Negative. Active Problems Problems Adenocarcinoma of prostate (185) (C61) Benign prostatic hyperplasia with lower urinary tract symptoms (600.01) (N40.1) Clot hematuria (599.71) (R31.0) Elevated PSA (790.93) (R97.20) Erectile dysfunction (607.84) (N52.9) Hematuria (599.70) (R31.9) Hernia, inguinal, left (550.90) (K40.90) Hypogonadism in male (257.2) (E29.1) Nocturia (788.43) (R35.1) Prostate cancer screening (V76.44) (Z12.5) Urinary frequency (788.41) (R35.0) Urinary incontinence (788.30) (R32) Urinary urgency (788.63) (R39.15) Surgical History Problems History of Carotid artery patch repair History of Cyst excision History of Elbow surgery History of Knee surgery History of Prostate biopsy Family History Mother Family history of Medical history unknown Father Family history of Medical history unknown Social History Problems Current every day smoker (305.1) (F17.200) Allergies Medication No Known Drug Allergies Recorded By: Mireille Gómez; 09/28/2019 2:48:14 PM Current Meds Medication NameInstruction Albuterol Sulfate HFA 108 (90 Base) MCG/ACT Inhalation Aerosol SolutionINHALE 2 (TWO) puffs EVERY 4 HOURS NEEDED for FOR WHEEZING amLODIPine Besylate 2.5 MG Oral TabletTake 1 tablet by mouth once daily. Cetirizine HCl - 10 MG Oral TabletTake 1 tablet by mouth once daily. as needed for nasal drainage Citalopram Hydrobromide 40 MG Oral TabletTake 1 tablet by mouth once daily. Crestor 5 MG Oral Tablet Finasteride 5 MG Oral TabletTake 1 tablet daily hydroCHLOROthiazide CAPS levETIRAcetam 1000 MG Oral TabletTAKE 1 TABLET TWICE DAILY Pravastatin Sodium TABS Sildenafil Citrate 100 MG Oral Tablet1 TAB PO PRN Tadalafil 20 MG Oral TabletTAKE 1 TABLET 1 HOUR BEFORE ACTIVITY NEEDED. Tamsulosin HCl - 0.4 MG Oral CapsuleTAKE 1 CAPSULE BY MOUTH EVERYDAY AT BEDTIME Vitals Vital Signs Recorded: [id number] 10:21AM Heart Rate64 Dyudmxfo251 Mtlrmjfke09 Height5 ft 10 in Ydqesh004 lb 6 oz BMI Fmlrspemjh49.01 kg/m2 BSA Calculated1.86 Tobacco Useb) No PHQ-2 Patient Declined/Screening not indicatedYes Falls Screening (Age 18+)a) No falls within the last year Physical Exam A/O x 3 in No apparent distress Constitutional: General appearance normal Respiratory: Respiratory effort is normal Gastrointestinal:Abdome n is not tender Genitourinary: Kidneys: Not palpable Bilaterally Bladder: Not palpable or tender Scrotum: No mass. No Hydrocele Epididymis: No spermatocele. Not tender Testicles: no mass Urethra: No Discharge Penis: WNL...No lesions. circumcised Prostate: Symmetric. No Nodules. BENIGN Seminal Vesicles: No mass Sphincter Tone: normal left inguinal hernia Signatures Electronically signed by : Elias Rider II, MD; Apr 02 2023 10:33AM EST (Author) Normal [employer] Serum or plasma calcium jerzy urement (mass/volume)Ordered By: EDILBERTO Rider on 04-02-2023 Calcium [Mass/Vol] 9.6 mg/dL 8.5-10.1 [facility] Serum or plasma creatinine m easurement (mass/volume)Ordered By: EDILBERTO Rider on 04-02-2023 Creatinine [Mass/Vol] 0.95 mg/dL 0.70-1.30 [facility] Comment on above: The validity of the calculated GFR & GFRAA in patients over 70 years has not been determined. Clinical correlation is essential. Serum or plasma urea nitroge n measurement (mass/volume)Ordered By: EDILBERTO Rider on 04-02-2023 Urea nitrogen [Mass/Vol] 20 mg/dL 7-18 [facility] Thin prep Papanicolaou smear with manual screeningOrdered By: EDILBERTO Rider on 04-02-2023 Thin prep Papanicolaou smear with manual screening 4 5-15 [facility] XR Chest PA and Lateralon IMPRESSION: No acute radiographic abnormality. No suspicious pulmonary nodule/lung mass identified. Information Services Manager: TORY Transcribe Date/Time: Mar 26 2023 10:17A Dictated by : JOEL MIRANDA DO This examination was interpreted and the report reviewed and electronically signed by: JOEL MIRANDA DO on Mar 26 2023 10:17AM [facility] DIVISION OF RADIOLOGY * * *Final Report* * * DATE OF EXAM: Mar 25 2023 4:23PM WOX [id number] - XR CHEST 2V FRONTAL/LAT / PROCEDURE REASON: Weight loss * * * * Physician Interpretation * * * * EXAMINATION: CHEST RADIOGRAPH (2 VIEW FRONTAL & LATERAL) CLINICAL HISTORY: Weight loss MQ: XC2_6 EXAM DATE/TIME: 03/25/2023 4:23 PM COMPARISON: 04/04/2020 RESULT: Lines, tubes, and devices: None. Lungs and pleura: No consolidation. No lung mass. No pleural effusion. No pneumothorax. Cardiomediastinal silhouette: Normal cardiomediastinal silhouette. Bones and soft tissues: Unremarkable. DIVISION OF RADIOLOGY Provider, [facility] - 03/26/2023 * * *Final Report* * * DATE OF EXAM: Mar 25 2023 4:23PM WOX [id number] - XR CHEST 2V FRONTAL/LAT / PROCEDURE REASON: Weight loss * * * * Physician Interpretation * * * * EXAMINATION: CHEST RADIOGRAPH (2 VIEW FRONTAL & LATERAL) CLINICAL HISTORY: Weight loss MQ: XC2_6 EXAM DATE/TIME: 03/25/2023 4:23 PM COMPARISON: 04/04/2020 RESULT: Lines, tubes, and devices: None. Lungs and pleura: No consolidation. No lung mass. No pleural effusion. No pneumothorax. Cardiomediastinal silhouette: Normal cardiomediastinal silhouette. Bones and soft tissues: Unremarkable. IMPRESSION IMPRESSION: No acute radiographic abnormality. No suspicious pulmonary nodule/lung mass identified. Information Services Manager: TORY Transcribe Date/Time: Mar 26 2023 10:17A Dictated by : JOEL MIRANDA DO This examination was interpreted and the report reviewed and electronically signed by: JOEL MIRANDA DO on Mar 26 2023 10:17AM EST [facility] XR Chest PA and LateralOrder ed By: [facility] Provider on 03-26-2023 [facility] CBC W Auto Differential pane l (Bld)on 03-25-2023 Basophils (Bld) [#/Vol] 0.06 10*3/uL <0.11 k/uL [facility] Basophils/100 WBC (Bld) 0.7 % [facility] Differential cell count method Nom (Bld) Auto [facility] Eosinophils (Bld) [#/Vol] 0.07 10*3/uL <0.46 k/uL [facility] Eosinophils/100 WBC (Bld) 0.8 % [facility] Erythrocyte distribution width (RBC) [Ratio] 11.9 % 11.5 - 15.0 % [facility] Hematocrit (Bld) [Volume fraction] 46.6 % 39.0 - 51.0 % [facility] Hemoglobin (Bld) [Mass/Vol] 15.3 g/dL 13.0 - 17.0 g/dL [facility] Immature granulocytes (Bld) [#/Vol] 0.03 10*3/uL <0.10 k/uL [facility] Immature granulocytes/100 WBC (Bld) 0.3 % [facility] Lymphocytes (Bld) [#/Vol] 2.62 10*3/uL 1.00 - 4.00 k/uL [facility] Lymphocytes/100 WBC (Bld) 29.7 % [facility] MCH (RBC) [Entitic mass] 32.8 pg 26.0 - 34.0 pg [facility] MCHC (RBC) [Mass/Vol] 32.8 g/dL 30.5 - 36.0 g/dL [facility] MCV (RBC) [Entitic vol] 99.8 fL 80.0 - 100.0 fL [facility] Monocytes (Bld) [#/Vol] 0.67 10*3/uL <0.87 k/uL [facility] Monocytes/100 WBC (Bld) 7.6 % [facility] Neutrophils (Bld) [#/Vol] 5.36 10*3/uL 1.45 - 7.50 k/uL [facility] Neutrophils/100 WBC (Bld) 60.9 % [facility] Nucleated RBC (Bld) [#/Vol] <0.01 k/uL [facility] Nucleated RBC/100 WBC (Bld) [Ratio] 0.0 /100 WBC [facility] Platelet mean volume (Bld) [Entitic vol] 11.1 fL 9.0 - 12.7 fL [facility] Platelets (Bld) [#/Vol] 227 10*3/uL 150 - 400 k/uL [facility] RBC (Bld) [#/Vol] 4.67 10*6/uL 4.20 - 6.0 0 m/uL [facility] WBC (Bld) [#/Vol] 8.81 10*3/uL 3.70 - 11.00 k/uL [facility] HbA1c (Bld)on 03-25-2023 Average glucose Estimated from glycated hemoglobin (Bld) [Mass/Vol] 94 mg/dL [facility] HbA1c (Bld) [Mass fraction] 4.9 % 4.3 - 5.6 % [facility] XR Chest PA and Lateralon Radiology Study observation (narrative) [facility] CREATININE, BLOOD (POC)on Creatinine [Mass/Vol] 0.90 mg/dL 0.7 - 1.4 mg/dL [facility] eGFR (POCT) [facility] No Panel Informationon 01-21 [facility] Order Reconciliationon 11-07 Order Reconciliation Page 1 Discharge Reconciliation Document Reconciliation Type: Discharge requested on behalf of Massiel Harrell (Physician) done by Massiel Harrell) Discharge - Reconciliation: 07-Nov-2022 07:35 by: Massiel Harrell) Home Medications EnteredHOME MEDICATIONS AT DISCHARGE DateReconciliation Comment/ Additional Information CeleXA 40 mg oral tablet 1 tab(s) orally once a day 24-Sep-2022 12:49 CeleXA 40 mg oral tablet 1 tab(s) orally once a day 24-Sep-2022 12:49 CeleXA 40 mg oral tablet is continued as CeleXA 40 mg oral tablet Crestor 40 mg oral tablet 1 tab(s) orally once a day 24-Sep-2022 12:50 Crestor 40 mg oral tablet 1 tab(s) orally once a day 24-Sep-2022 12:50 Crestor 40 mg oral tablet is continued as Crestor 40 mg oral tablet Flomax 0.4 mg oral capsule 1 cap(s) orally once a day 24-Sep-2022 12:49 Flomax 0.4 mg oral capsule 1 cap(s) orally once a day 24-Sep-2022 12:49 Flomax 0.4 mg oral capsule is continued as Flomax 0.4 mg oral capsule Fosamax 70 mg oral tablet 1 tab(s) orally once a week 24-Sep-2022 12:50 Fosamax 70 mg oral tablet 1 tab(s) orally once a week 24-Sep-2022 12:50 Fosamax 70 mg oral tablet is continued as Fosamax 70 mg oral tablet Norvasc 5 mg oral tablet 1 tab(s) orally once a day 24-Sep-2022 12:49 Norvasc 5 mg oral tablet 1 tab(s) orally once a day 24-Sep-2022 12:49 Norvasc 5 mg oral tablet is continued as Norvasc 5 mg oral tablet Plavix 75 mg oral tablet 1 tab(s) orally once a day 24-Sep-2022 12:49 Plavix 75 mg oral tablet 1 tab(s) orally once a day 24-Sep-2022 12:49 Plavix 75 mg oral tablet is continued as Plavix 75 mg oral tablet trospium 20 mg oral tablet 1 tab(s) orally 2 times a day 24-Sep-2022 12:50 trospium 20 mg oral tablet 1 tab(s) orally 2 times a day 24-Sep-2022 12:50 trospium 20 mg oral tablet is continued as trospium 20 mg oral tablet Home Medications Added During Discharge Reconciliation Additional Patient Instructions Follow printed discharge instructions Discharge Discharge Diagnosis< H25.812 Combined form of age-related cataract, left eye Discharge Provider, Massiel Harrell Discharge Disposition : .Home Condition at Discharge: Satisfactory Discharge Communication Instructions for Nursing Only: Remove IV prior to discharge from hospital. Do not remove any midline, if present, without an order from the provider. Discharge Instructions - PHR After your discharge from the hospital, two Summary of Care Documents will be available online in your Personal Health Record (PHR). 1.Consolidated-Clinical Document Architecture (C-CDA) Patient Discharge Summary This document is a summary of your hospital stay to be kept for your reference.2.C-CDA Visit Summary This document is a summary of your hospital stay to be shared with your follow-up providers (doctor, community resource consultant, physical therapist, etc.). Post Procedure Discharge Criteria Criteria: Easily arousable / responding appropriately; Significant complications are absent; SpO2 = or > 92%, or if SpO2 < 92%, maintains within 2% of baseline; Vital signs +/- 20% of preprocedure status; Ambulates without dizziness / age appropriate activity and ambulatory status returns to pre-procedure baseline. 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 Do not remove any midline, if present, without an order from the provider. Discharge Instructions - PHR After your discharge from the hospital, two Summary of Care Documents will be available online in your Personal Health Record (PHR). 1.Consolidated-Clinical Document Architecture (C-CDA) Patient Discharge Summary This document is a summary of your hospital stay to be kept for your reference.2.C-CDA Visit Summary This document is a summary of your hospital stay to be shared with your follow-up providers (doctor, community resource consultant, physical therapist, etc.). Flomax 0.4 mg oral capsule 1 cap(s) orally once a day Fosamax 70 mg oral tablet 1 tab(s) orally once a week Norvasc 5 mg oral tablet 1 tab(s) orally once a day Plavix 75 mg oral tablet 1 tab(s) orally once a day Post Procedure Discharge Criteria Criteria: Easily arousable / responding appropriately; Significant complications are absent; SpO2 = or > 92%, or if SpO2 < 92%, maintains within 2% of baseline; Vital signs +/- 20% of preprocedure status; Ambulates without dizziness / age appropriate activity and ambulatory status returns to pre-procedure baseline. trospium 20 mg oral tablet 1 tab( (more content not included)... Normal [facility] Patient Profile - Preop v3on 11-04-2022 Patient Profile - Preop v3 Patient Profile - Preop: Initial Info: Patient DemographicsName: DENNY GOMEZ Date: 1955 Address: [address] [place] [address] Primary Phone [phone] Call Attemptedattempt 1 Instructions Givenbring responsible adult as the driver guide (procedure may be cancelled if no driver guide), appropriate clothing, center location, insurance information Prep Instructions Reviewedyes Instructed to Have No Fluids Aftermidnight How to be AddressedJack Spoken Language PreferredEnglish Source of Informationpatient Stated Reason for Admissionleft cataract Primary Contact Name and [phone] Limitations on Visitors/Phone Callsnone Medications Brought to Hospitalno General Health: Weight in kg71.1 kilogram(s) Weight in wzd141.7 pound(s) Weight Methodactual (measured) Scale Typestanding Height in feet5 feet Height in inches7.91 inch(es) Height in cm172.4 centimeter(s) Height Methodstated BMI (kg/m2)23.921 square meter Patient or Family Member Reaction to Anesthesiano previous reaction; no previous family member reaction Blood Avoidance/Restrictionsn one Previous Transfusion Reactionnot applicable Health Mgmt: Symptoms/Conditions Managed at Homecardiovascular Barriers to Managing Healthnone Relationship/Environ: Lives Withspouse Living Arrangementsapartment Resource/Environmental Concernsnone Anticipated Transition [place] [facility] Anticipated at Transitionnone Tobacco Use: Tobacco Useyes Tobacco Typecigarettes Last Tobacco [id number] Number of Packs per Day0.1 Tobacco Commentapprox 2 cigarettes per day Pre-op Checklist: Arrival [id number] Arrival Time07:19 Procedure Typecataract left eye NPOyes Last Food [id number] 22:00 Last Clear Fluid [id number] 22:00 ID Band On Patientpatient ID (name) Consent Signedyes H&P Completeyes, H AND p VERIFIED WITH CONSENTLEFT Anesthesia Assessment Completedyes EKG Performednot ordered Chest X-Ray Performednot ordered Preop Antibioticsnot ordered Chlorhexadine Bath Givennot applicable Nasal Antiseptic Appliednot applicable Soap and Water Bath the Night Before Surgerynot applicable Hair Washed with Shampoonot applicable Bowel Prepno Surgical Site Infection Preventionyes Pain Scales and Managementyes Additional Information: Information Review: Allergies, Home Meds and Significant Events have been Reviewed and Verified with Patient/Familyyes Allergy, Intolerance, Adverse Event: Allergies: No Known Allergies: Active Electronic Signatures: Nicole Ching (RN) (Signed 07-Nov-2022 07:36) Authored: Initial Info, Pre-op Checklist, Additional Information Lavinia Brumfield (RN) (Signed 04-Nov-2022 11:25) Authored: Initial Info, General Health, Health Mgmt, Relationship/Environ, Tobacco Use, Pre-op Checklist, Additional Information Last Updated: 07-Nov-2022 07:36 by Nicole Ching (NADYA) [facility] Order Reconciliationon 09-26 Order Reconciliation Page 1 Discharge Reconciliation Document Reconciliation Type: Discharge requested on behalf of Massiel Harrell (Physician) done by Massiel Harrell) Discharge - Reconciliation: 26-Sep-2022 08:33 by: Massiel Harrell) Home Medications EnteredHOME MEDICATIONS AT DISCHARGE DateReconciliation Comment/ Additional Information CeleXA 40 mg oral tablet 1 tab(s) orally once a day 24-Sep-2022 12:49 CeleXA 40 mg oral tablet 1 tab(s) orally once a day 24-Sep-2022 12:49 CeleXA 40 mg oral tablet is continued as CeleXA 40 mg oral tablet Crestor 40 mg oral tablet 1 tab(s) orally once a day 24-Sep-2022 12:50 Crestor 40 mg oral tablet 1 tab(s) orally once a day 24-Sep-2022 12:50 Crestor 40 mg oral tablet is continued as Crestor 40 mg oral tablet Flomax 0.4 mg oral capsule 1 cap(s) orally once a day 24-Sep-2022 12:49 Flomax 0.4 mg oral capsule 1 cap(s) orally once a day 24-Sep-2022 12:49 Flomax 0.4 mg oral capsule is continued as Flomax 0.4 mg oral capsule Fosamax 70 mg oral tablet 1 tab(s) orally once a week 24-Sep-2022 12:50 Fosamax 70 mg oral tablet 1 tab(s) orally once a week 24-Sep-2022 12:50 Fosamax 70 mg oral tablet is continued as Fosamax 70 mg oral tablet Norvasc 5 mg oral tablet 1 tab(s) orally once a day 24-Sep-2022 12:49 Norvasc 5 mg oral tablet 1 tab(s) orally once a day 24-Sep-2022 12:49 Norvasc 5 mg oral tablet is continued as Norvasc 5 mg oral tablet Plavix 75 mg oral tablet 1 tab(s) orally once a day 24-Sep-2022 12:49 Plavix 75 mg oral tablet 1 tab(s) orally once a day 24-Sep-2022 12:49 Plavix 75 mg oral tablet is continued as Plavix 75 mg oral tablet trospium 20 mg oral tablet 1 tab(s) orally 2 times a day 24-Sep-2022 12:50 trospium 20 mg oral tablet 1 tab(s) orally 2 times a day 24-Sep-2022 12:50 trospium 20 mg oral tablet is continued as trospium 20 mg oral tablet Home Medications Added During Discharge Reconciliation Additional Patient Instructions Follow printed discharge instructions Discharge Discharge Diagnosis< H25.811 Combined forms of age-related cataract of right eye Discharge Provider, Massiel Harrell Discharge Disposition : .Home Condition at Discharge: Satisfactory Discharge Communication Instructions for Nursing Only: Remove IV prior to discharge from hospital. Do not remove any midline, if present, without an order from the provider. Discharge Instructions - PHR After your discharge from the hospital, two Summary of Care Documents will be available online in your Personal Health Record (PHR). 1.Consolidated-Clinical Document Architecture (C-CDA) Patient Discharge Summary This document is a summary of your hospital stay to be kept for your reference.2.C-CDA Visit Summary This document is a summary of your hospital stay to be shared with your follow-up providers (doctor, community resource consultant, physical therapist, etc.). Post Procedure Discharge Criteria Criteria: Easily arousable / responding appropriately; Significant complications are absent; SpO2 = or > 92%, or if SpO2 < 92%, maintains within 2% of baseline; Vital signs +/- 20% of preprocedure status; Ambulates without dizziness / age appropriate activity and ambulatory status returns to pre-procedure baseline. All Active Home Medications at time of Discharge Reconciliation: 26-Sep-2022 08:33 Additional Patient Instructions Follow printed discharge instructions CeleXA 40 mg oral tablet 1 tab(s) orally once a day Crestor 40 mg oral tablet 1 tab(s) orally once a day Discharge Discharge Diagnosis< H25.811 Combined forms of age-related cataract of right eye Discharge Provider, Massiel Harrell Discharge Disposition : .Home Condition at Discharge: Satisfactory Discharge Communication Instructions for Nursing Only: Remove IV prior to discharge from hospital. Do not remove any midline, if present, without an order from the provider. Discharge Instructions - PHR After your discharge from the hospital, two Summary of Care Documents will be available online in your Personal Health Record (PHR). 1.Consolidated-Clinical Document Architecture (C-CDA) Patient Discharge Summary This document is a summary of your hospital stay to be kept for your reference.2.C-CDA Visit Summary This document is a summary of your hospital stay to be shared with your follow-up providers (doctor, community resource consultant, physical therapist, etc.). Flomax 0.4 mg oral capsule 1 cap(s) orally once a day Fosamax 70 mg oral tablet 1 tab(s) orally once a week Norvasc 5 mg oral tablet 1 tab(s) orally once a day Plavix 75 mg oral tablet 1 tab(s) orally once a day Post Procedure Discharge Criteria Criteria: Easily arousable / responding appropriately; Significant complications are absent; SpO2 = or > 92%, or if SpO2 < 92%, maintains within 2% of baseline; Vital signs +/- 20% of preprocedure status; Ambulates without dizziness / age appropriate activity and ambulatory status returns to pre-procedure baseline. trospium 20 mg oral table (more content not included)... [facility] Patient Profile - Preop v3on 09-24-2022 Patient Profile - Preop v3 Patient Profile - Preop: Initial Info: Patient DemographicsName: DENNY GOMEZ Date: 1955 Address: [address] [place] [address] Primary Phone [phone] Call Attemptedattempt 1 Instructions Givenappropriate clothing, bring responsible adult as the driver guide (procedure may be cancelled if no driver guide), center location, insurance information Prep Instructions Reviewedyes Instructed to Have No Fluids Aftermidnight How to be AddressedJack Spoken Language PreferredEnglish Source of Informationpatient Stated Reason for Admissioncataract right eye Primary Contact Name and [phone] Medications Brought to Hospitalno General Health: Weight in kg71.1 kilogram(s) Weight in crj564.7 pound(s) Weight Methodactual (measured) Scale Typestanding Height in feet5 feet Height in inches7.95 inch(es) Height in cm172.5 centimeter(s) Height Methodstated BMI (kg/m2)23.894 square meter Patient or Family Member Reaction to Anesthesiano previous reaction; no previous family member reaction Blood Avoidance/Restrictionsn one Previous Transfusion Reactionnot applicable Health Mgmt: Symptoms/Conditions Managed at Homecardiovascular Barriers to Managing Healthnone Relationship/Environ: Lives Withspouse Living Arrangementsapartment Resource/Environmental Concernsnone Anticipated Transition [place] [facility] Anticipated at Transitionnone Tobacco Use: Tobacco Useyes Tobacco Typecigarettes Last Tobacco [id number] Number of Packs per Day0.1 Tobacco Commentapprox 2 cigarettes per day Pre-op Checklist: Arrival [id number] Arrival Time08:17 Procedure Typecataract right eye NPOyes Last Food [id number] 22:00 Last Clear Fluid [id number]-Qwu-7971 22:00 ID Band On Patientpatient ID (name) Consent Signedyes H&P Completeyes Anesthesia Assessment Completedyes EKG Performednot ordered Chest X-Ray Performednot ordered Preop Antibioticsnot ordered Chlorhexadine Bath Givennot applicable Nasal Antiseptic Appliednot applicable Soap and Water Bath the Night Before Surgerynot applicable Hair Washed with Shampoonot applicable Bowel Prepno Pain Scales and Managementyes Additional Information: Information Review: Allergies, Home Meds and Significant Events have been Reviewed and Verified with Patient/Familyyes Allergy, Intolerance, Adverse Event: Allergies: No Known Allergies: Active Problem List: Medical History: Anxiety and depression: Catalog Name: Anxiety disorder, unspecified BPH (benign prostatic hyperplasia): Catalog Name: Benign prostatic hyperplasia without lower urinary tract symptoms Hypertension: Catalog Name: Essential (primary) hypertension CVA (cerebral vascular accident): Catalog Name: Cerebral infarction, unspecified Surg History: History of arthroscopy of knee: Catalog Name: Other specified postprocedural states History of common carotid artery stent placement: Catalog Name: Other specified postprocedural states History of carotid endarterectomy: Catalog Name: Other specified postprocedural states Electronic Signatures: Saba Lennon (RN) (Signed 26-Sep-2022 08:41) Authored: Initial Info, General Health, Health Mgmt, Relationship/Environ, Pre-op Checklist, Additional Information Lavinia Brumfield (RN) (Signed 24-Sep-2022 12:53) Authored: Initial Info, General Health, Tobacco Use, Additional Information Last Updated: 26-Sep-2022 08:41 by Saba Lennon (RN) Normal [facility] Office Visit (Urology)on Follow-up visit Diagnoses/Problems Assessed Elevated PSA (790.93) (R97.20) Benign prostatic hyperplasia with lower urinary tract symptoms (600.01) (N40.1) Nocturia (788.43) (R35.1) Prostate cancer screening (V76.44) (Z12.5) Patient Discussion/Summary All available PSA values reviewed, Options discussed. Questions answered. Diet changes for prostate health discussed and educational information given. Pros/Cons of prostate health supplements discussed. MRI reviewed Treatment options for LUTS reviewed Proscar refilled Past MRI reviewed Lifestyle change to help prevent UTIs discussed. Encouraged fluid intake. F/u 6 months with PSA in office Chief Complaint An interactive audio and video telecommunication system which permits real time communications between the patient (at the originating site) and provider (at the distant site) was utilized to provide this telehealth service. Verbal consent was requested and obtained from DNENY GOMEZ on this date, 05/27/2022 10:00 AM , for a telehealth visit. 2 mo w/ psa History of Present IllnessPatient has hx of elevated PSA. Most recent PSA was 1.05 ON 05/25. Prior PSA was 4.0 (11/23) Previous PSA was 1.86 on 05/24, prior was 1.86 (12/22) on Proscar since 10/22.Normal MRI on 02/22. 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 Hx of gross hematuria. Last cysto was on 10/2020..... No recent sx. Chronic BPH sx are mild and stable. Denies urgency and frequency. Denies dysuria. Denies hematuria. Nocturia x1-2. . He is taking Flomax and proscar. ED is chronic. Review of Systems Constitutional: No fever, No chills. Eye: Negative. Ear/Nose/Mouth/Throat: Negative. Respiratory: No shortness of breath, No cough. Cardiovascular: No chest pain, No peripheral edema. Gastrointestinal: No nausea, Genitourinary: Negative except as documented in history of present illness. Hematology/Lymphatics: Patient denies being on blood thinners.. Endocrine: Negative. Immunologic: Not immunocompromised. Musculoskeletal: Negative Integumentary: Negative. Neurologic: Alert and oriented X4. Psychiatric: Negative. Active Problems Problems Adenocarcinoma of prostate (185) (C61) Benign prostatic hyperplasia with lower urinary tract symptoms (600.01) (N40.1) Clot hematuria (599.71) (R31.0) Elevated PSA (790.93) (R97.20) Erectile dysfunction (607.84) (N52.9) Hematuria (599.70) (R31.9) Hernia, inguinal, left (550.90) (K40.90) Hypogonadism in male (257.2) (E29.1) Nocturia (788.43) (R35.1) Prostate cancer screening (V76.44) (Z12.5) Urinary frequency (788.41) (R35.0) Urinary incontinence (788.30) (R32) Urinary urgency (788.63) (R39.15) Surgical History Problems History of Carotid artery patch repair History of Cyst excision History of Elbow surgery History of Knee surgery History of Prostate biopsy Family History Mother Family history of Medical history unknown Father Family history of Medical history unknown Social History Problems Current every day smoker (305.1) (F17.200) Allergies Medication No Known Drug Allergies Recorded By: Mireille Gómez; 09/28/2019 2:48:14 PM Current Meds Medication NameInstruction Albuterol Sulfate HFA 108 (90 Base) MCG/ACT Inhalation Aerosol SolutionINHALE 2 (TWO) puffs EVERY 4 HOURS NEEDED for FOR WHEEZING amLODIPine Besylate 2.5 MG Oral TabletTake 1 tablet by mouth once daily. Cetirizine HCl - 10 MG Oral TabletTake 1 tablet by mouth once daily. as needed for nasal drainage Citalopram Hydrobromide 40 MG Oral TabletTake 1 tablet by mouth once daily. Crestor 5 MG Oral Tablet Finasteride 5 MG Oral TabletTake 1 tablet daily hydroCHLOROthiazide CAPS levETIRAcetam 1000 MG Oral TabletTAKE 1 TABLET TWICE DAILY Pravastatin Sodium TABS Sildenafil Citrate 100 MG Oral Tablet1 TAB PO PRN Tadalafil 20 MG Oral TabletTAKE 1 TABLET 1 HOUR BEFORE ACTIVITY NEEDED. Tamsulosin HCl - 0.4 MG Oral CapsuleTAKE 1 CAPSULE BY MOUTH EVERYDAY AT BEDTIME Physical Exam No physical exam done given the virtual nature of the visit Signatures Electronically signed by : Elias Rider II, MD; May 27 2022 10:10AM EST (Author) Normal Touchworks No Panel Informationon 05-20 Prostate Specific Antigen Total 1.05 ng/mL 0.0-4.0 [facility] Work Phone: Comment on above: This test was perfor med using the TPSA assay method for Roambi chemistry system. Values obtained with differentassay methods cannot be used interchangably.When changing PSA assays in the course of monitoring apatient, additional sequential testing should be carriedout to confirm baseline values. BD MRI PROSTATEon 02-26-2022 BD MRI PROSTATE Patient Name: DENNY GOMEZ STUDY: MRI PROSTATE; 02/26/2022 10:25 am INDICATION: none R97.20: Elevated PSA implant device BOBINE PERICARDIAL PATCH SERIAL [id number] MODEL 4700 IMPLANTE DATE 04/04/2020 [facility] [address] Per EMR: 66 M with elevated PSA of 4.0 (November 2021). 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 ACCESSION NUMBER(S): [id number] ORDERING CLINICIAN: ELIAS RIDER TECHNIQUE: Multiplanar MRI of the pelvis was obtained including axial, sagittal and coronal T2 weighted SSFSE, axial and sagittal T2 FSE, axial DWI, pre and post gadolinium dynamic T1 GRE sequences. Multiparametric analysis was performed. 14 ml of Dotarem was administered intravenously without immediate complications. FINDINGS: PROSTATE VOLUME: The prostate measures 5.3 cm x 4.9 cm x 4.7 cm in rvnfe-ki-tory, anterior-posterior and craniocaudal dimension. Prostate volume is estimated at 64 cc. PSA density is 0.06 ng/mL/g. PROSTATE PARENCHYMA: There is heterogeneous enlargement of the transition zone, consistent with benign prostatic hyperplasia. The peripheral zone is diffusely heterogenous on T2WI, with bilateral polygonal and wedge-shaped T2-hypointense areas, that show no signs of abnormally restricted diffusion (PI-RADS 2). EXTRACAPSULAR EXTENSION: None. SEMINAL VESICLES: Within normal limits. PELVIC LYMPH NODES: No abnormally enlarged pelvic lymph nodes are identified. PERITONEUM: Trace amount of free pelvic fluid. The bladder is decompressed. OTHER ORGANS: Trace bilateral hydroceles. BONES: No abnormally enhancing focal bony lesions are identified. Multilevel discogenic degenerative disease is noted in several levels of the thoraco- lumbar spine. IMPRESSION: 1. There is no evidence of clinically significant neoplasm. 2. BPH changes of the transition zone. Diffuse non nodular hypointensities within the peripheral zone, without evidence of focally restricted diffusion ( PI-RADS 2). 3. Small amount of pelvic ascites. PI-RADS 2 - Low (clinically significant cancer is unlikely to be present). I personally reviewed the images/study and I agree with the findings as stated. This study was interpreted at [facility], [place], [place]. Electronically signed by: RHONDA LIU MD Normal [facility] MRI Prostateon 02-26-2022 MRI Prostate Normal RL-Dmvayuz-N [facility] Work Phone: IO UA (automated w/o microsc opy)on 01-30-2022 Protein (U) [Mass/Vol] Negative MP -Urology-A [facility] Work Phone: IO UA (automated w/o microscopy) Negative SV-Wcucxza-D [facility] Work Phone: [phone] IO UA (automated w/o microscopy) Normal KT-Rooqqfd-D [facility] Work Phone: [phone] IO UA (automated w/o microscopy) 5.0 1 CL-Lbtohhh-R [facility] Work Phone: [phone] IO UA (automated w/o microscopy) Trace LU-Pciqztm-H [facility] Work Phone: IO UA (automated w/o microscopy) 1.025 1 MS-Objheqq-X [facility] Work Phone: [phone] IO UA (automated w/o microscopy) Clear CT-Iboudub-H [facility] Work Phone: [phone] IO UA (automated w/o microscopy) Yellow UM-Zdiuuie-I [facility] Work Phone: Tobacco Screening.on 022 Fall risk assessment a) No falls within the last year HZ-Kgvqjmz-U [facility] Work Phone: Tobacco use status [facility] b) No M P-Urology-A [facility] Work Phone: No Panel Informationon 11-16 Prostate Specific Antigen Screen 4.00 ng/mL 0.00-4.00 [facility] Work Phone: Comment on above: This test was perfor med using the TPSA assay method for Roamb[employer] chemistry system. Values obtained with differentassay methods cannot be used interchangably.When changing PSA assays in the course of monitoring apatient, additional sequential testing should be carriedout to confirm baseline values. Tobacco Screening.on Fall risk assessment a) No falls within the last year PR-Qyuxxsi-W [facility] Work Phone: Tobacco use status [facility] b) No M P-Urology-A [facility] Work Phone: ALLIED HEALTHon 02-14-2020 ALLIED HEALTH HNO ID: [id number] Author: Karina (Ct) GEOVANNA Logan Service: Radiology Author Type: Clinical Biomass Boiler Operator Type: [facility] Filed: 02/14/2020 8:55 AM Note Text: Radiology Service Progress Note DATE OF SERVICE: February 14, 2020 TIME: 8:54 AM PATIENT IDENTITY VERIFICATION COMPLETED USING TWO (2) STANDARD IDENTIFIERS: Name and Date of confirmed by patient verbally and Name and Date of confirmed by identification band. FALL SCREENING: Has the patient had 2 falls in the last year or 1 fall with injury or currently using an Ambulatory Assistive Device (Walker, Cane, Wheelchair, Crutches, etc.)? No PATIENT GENDER DATA: Male PATIENT RELEVANT IMPLANT DATA REVIEWED: Not Applicable ALLERGIES: Reviewed and unchanged CONTRAST ALLERGY: NO. EXAM: CT -CONTRAST INDUCED NEPHROPATHY RISK FACTORS: Patient age > 60 years CREATININE: Creatinine Date Value Ref Range Status 02/07/2020 0.89 0.73 - 1.22 mg/dL Final 12/15/2019 0.88 0.6 - 1.3 MG/DL Final 01/26/2019 0.72 0.67 - 1.17 mg/dL Final 01/25/2019 0.77 0.67 - 1.17 mg/dL Final eGFR-All Other Races Date Value Ref Range Status 02/07/2020 >60 . Final Comment: eGFR (Estimated GFR) Units of measure: mL/min/1.73 meters squared eGFR is derived from the reexpressed MDRD Study equation using the following parameters: serum creatinine, age, gender and race. The creatinine assay has been calibrated to be traceable to IDMS. An eGFR <60 mL/min/1.73m2 for >3 months is consistent with chronic kidney disease. Refer to KDOQI guidelines for clinical interpretation. In patients with unstable renal function, e.g. those with acute kidney injury, the eGFR may not accurately reflect actual GFR. eGFR- Date Value Ref Range Status 02/07/2020 >60 Final P.O.C.T. RESULTS: POC done: Yes, See Lab Tab February 14, 2020 TREATMENT: N/A PERIPHERAL IV DATA: Ambulatory: A peripheral IV was started in the Right antecubital site with a Angio cath: 20 gauge. RADIOLOGY DEPARTMENT: CT; Exam(s) Completed: CTA Brain and CTA Neck SIGNATURE: Karina Baires, GEOVANNA PATIENT NAME: Denny Gomez DATE: February 14, 2020 TIME: 8:54 AM [facility] CTA HEAD W IVCONon 0 CTA HEAD W IVCON * * *Final Report* * * DATE OF EXAM: Feb 14 2020 8:54AM [facility] [place] CTA HEAD W IVCON / PROCEDURE REASON: [id number] specified postprocedural states * * * * Physician Interpretation * * * * CTA NECK W IVCON, CTA HEAD W IVCON HISTORY: Bruit - Carotid Stenosis (accession [id number]), Carotid stenosis (accession [id number]) TECHNIQUE: CTA head and neck. Post-processed images {Maximum intensity Projection (MIP), Volume-rendered (VR), or Surface shaded display images (SSD)} were created, reviewed and archived. MQ: CTAHN_3 Contrast: IV administration of 80 cc Omnipaque 350 Dose-Length Product (DLP): 644 mGy*cm CT Dose Reduction Employed: Automated exposure control (AEC) COMPARISON: CT brain 06/09/2019 RESULT: BRAIN: Evaluation of the individual slices of the CTA demonstrates no evidence of an acute stroke. ASPECT Score = 10 Hemorrhage: No evidence of acute intracranial hemorrhage. ECASS hemorrhagic transformation score: Not Applicable Again noted is focal transcortical encephalomalacia in the medial left occipital lobe. 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 NECK: Soft tissues: Within normal limits. Spine: Straightening of the cervical lordosis. Mild-moderate spondylotic changes. Lungs: Vague centrilobular emphysematous changes throughout the imaged lungs. CT ARTERIOGRAM: EXTRACRANIAL CIRCULATION: Aortic arch and branch vessels: Conventional 3-vessel arch branch anatomy. Areas of irregular eccentric plaque formation in the imaged proximal descending thoracic aorta. Eccentric calcified atherosclerotic plaque in the left subclavian artery proximal to, and including the origin of the left cervical vertebral artery, resulting in short segment moderate stenosis. Partial retropharyngeal course of the right common and internal carotid arteries. Carotid Stenosis: Right Common: Irregular eccentric calcifications in the mid right CCA resulting in short segment mild stenosis. Right Internal Carotid Plaque: Patulous appearance of the carotid bifurcation suggesting prior endarterectomy with minimal slightly irregular eccentric mixed plaque formation. Right Internal Carotid Stenosis (% by NASCET Criteria): 0% Left Common: No significant stenosis. Left Internal Carotid Plaque: Advanced irregular calcified plaque formation at the bifurcation with smooth asymmetric diffusely decreased caliber of the left cervical ICA relative to the contralateral side, likely reflecting decreased inflow. Left Internal Carotid Stenosis (% by NASCET Criteria): >95% Cervical Vertebral Arteries: Focal atherosclerotic change at the origin of the cervical vertebral artery without appreciable contrast opacification in either V1 or proximal V2 segments, with stringy opacification in the distal V2 segments and V3 segments extending intracranially. The opacified distal cervical vertebral arteries each appear small in caliber and codominant. INTRACRANIAL CIRCULATION: Anterior circulation: Eccentric calcifications throughout each carotid siphon resulting in multifocal mild-moderate stenosis. Area of eccentric atherosclerotic change versus superiorly and medially and direct and 4-5 mm aneurysm involving the left paraclinoid ICA. Distal ICAs remain patent. ACAs and MCAs are normal in caliber. A1 segments are codominant. Posterior circulation: Slightly diminished caliber of the left V4 segment from the origin of the left PICA to the vertebrobasilar junction with superimposed severe stenosis/occlusion in the distal portion immediately proximal to the vertebrobasilar junction. The right distal vertebral artery, basilar trunk and pharmacist manager are normal in caliber. Proximal SCAs, AICAs and PICAs are patent. Opacified dural venous sinuses and major deep and superficial draining veins are patent. Right dominant gulhbgcfue-tnzyulh-loih lar drainage. Paper Mill Supervisor (topogram) images: No additional findings. IMPRESSION: Multifocal mild-moderate stenosis throughout each carotid siphon, and severe stenosis/occlusion in the distal left V4 segment immediately proximal to the vertebrobasilar junction. Patent remaining intracranial circulation. Eccentric atherosclerotic change versus 4-5 mm aneurysm involving the left paraclinoid ICA. Severe stenosis (>95%) of the left carotid bifurcation by NASCET criteria. Likely post-endarterectomy changes on the right without significant residual/recurrent stenosis. Suspect high-grade stenosis at the origin of each cervical vertebral artery with likely chronic occlusion in each proximal artery, and reconstitution in the distal neck extending intracranially. Information Services Manager: [facility] Transcribe Date/Time: Feb 14 2020 9:06A Dictated by : NANCY CAMERON MD This examination was interpreted and the report reviewed and electronically signed by: NANCY CAMERON MD on Feb 14 2020 9:28AM EST [id number] [facility] CTA NECK W IVCONon 0 CTA NECK W IVCON * * *Final Report* * * DATE OF EXAM: Feb 14 2020 8:54AM [facility] [place] - CTA NECK W IVCON / PROCEDURE REASON: [id number] * * * * Physician Interpretation * * * * CTA NECK W IVCON, CTA HEAD W IVCON HISTORY: Bruit - Carotid Stenosis (accession [id number]), Carotid stenosis (accession [id number]) TECHNIQUE: CTA head and neck. Post-processed images {Maximum intensity Projection (MIP), Volume-rendered (VR), or Surface shaded display images (SSD)} were created, reviewed and archived. MQ: CTAHN_3 Contrast: IV administration of 80 cc Omnipaque 350 Dose-Length Product (DLP): 644 mGy*cm CT Dose Reduction Employed: Automated exposure control (AEC) COMPARISON: CT brain 06/09/2019 RESULT: BRAIN: Evaluation of the individual slices of the CTA demonstrates no evidence of an acute stroke. ASPECT Score = 10 Hemorrhage: No evidence of acute intracranial hemorrhage. ECASS hemorrhagic transformation score: Not Applicable Again noted is focal transcortical encephalomalacia in the medial left occipital lobe. 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 NECK: Soft tissues: Within normal limits. Spine: Straightening of the cervical lordosis. Mild-moderate spondylotic changes. Lungs: Vague centrilobular emphysematous changes throughout the imaged lungs. CT ARTERIOGRAM: EXTRACRANIAL CIRCULATION: Aortic arch and branch vessels: Conventional 3-vessel arch branch anatomy. Areas of irregular eccentric plaque formation in the imaged proximal descending thoracic aorta. Eccentric calcified atherosclerotic plaque in the left subclavian artery proximal to, and including the origin of the left cervical vertebral artery, resulting in short segment moderate stenosis. Partial retropharyngeal course of the right common and internal carotid arteries. Carotid Stenosis: Right Common: Irregular eccentric calcifications in the mid right CCA resulting in short segment mild stenosis. Right Internal Carotid Plaque: Patulous appearance of the carotid bifurcation suggesting prior endarterectomy with minimal slightly irregular eccentric mixed plaque formation. Right Internal Carotid Stenosis (% by NASCET Criteria): 0% Left Common: No significant stenosis. Left Internal Carotid Plaque: Advanced irregular calcified plaque formation at the bifurcation with smooth asymmetric diffusely decreased caliber of the left cervical ICA relative to the contralateral side, likely reflecting decreased inflow. Left Internal Carotid Stenosis (% by NASCET Criteria): >95% Cervical Vertebral Arteries: Focal atherosclerotic change at the origin of the cervical vertebral artery without appreciable contrast opacification in either V1 or proximal V2 segments, with stringy opacification in the distal V2 segments and V3 segments extending intracranially. The opacified distal cervical vertebral arteries each appear small in caliber and codominant. INTRACRANIAL CIRCULATION: Anterior circulation: Eccentric calcifications throughout each carotid siphon resulting in multifocal mild-moderate stenosis. Area of eccentric atherosclerotic change versus superiorly and medially and direct and 4-5 mm aneurysm involving the left paraclinoid ICA. Distal ICAs remain patent. ACAs and MCAs are normal in caliber. A1 segments are codominant. Posterior circulation: Slightly diminished caliber of the left V4 segment from the origin of the left PICA to the vertebrobasilar junction with superimposed severe stenosis/occlusion in the distal portion immediately proximal to the vertebrobasilar junction. The right distal vertebral artery, basilar trunk and pharmacist manager are normal in caliber. Proximal SCAs, AICAs and PICAs are patent. Opacified dural venous sinuses and major deep and superficial draining veins are patent. Right dominant jykaecxbyt-tyfcosi-mobp lar drainage. Paper Mill Supervisor (topogram) images: No additional findings. IMPRESSION: Multifocal mild-moderate stenosis throughout each carotid siphon, and severe stenosis/occlusion in the distal left V4 segment immediately proximal to the vertebrobasilar junction. Patent remaining intracranial circulation. Eccentric atherosclerotic change versus 4-5 mm aneurysm involving the left paraclinoid ICA. Severe stenosis (>95%) of the left carotid bifurcation by NASCET criteria. Likely post-endarterectomy changes on the right without significant residual/recurrent stenosis. Suspect high-grade stenosis at the origin of each cervical vertebral artery with likely chronic occlusion in each proximal artery, and reconstitution in the distal neck extending intracranially. Information Services Manager: [facility] Transcribe Date/Time: Feb 14 2020 9:06A Dictated by : NANCY CAMERON MD This examination was interpreted and the report reviewed and electronically signed by: NANCY CAMERON MD on Feb 14 2020 9:28AM EST [id number] Normal [facility] NURSING PROGon 02-14-2020 NURSING PROG HNO ID: [id number] Author: Oanh (Rn) NADYA Mccloud Service: Radiology Author Type: Registered Nurse Type: Nursing Progress Note Filed: 02/14/2020 8:25 AM Note Text: Radiology Service Progress Note DATE OF SERVICE: February 14, 2020 TIME: 8:24 AM PATIENT WEIGHT: 165LBS PATIENT IDENTITY VERIFICATION COMPLETED USING TWO (2) STANDARD IDENTIFIERS: Name and Date of confirmed by patient verbally. FALL SCREENING: Has the patient had 2 falls in the last year or 1 fall with injury or currently using an Ambulatory Assistive Device (Walker, Cane, Wheelchair, Crutches, etc.)? Yes, Patient High Risk for Falls What interventions were put in place to prevent falls during this visit? Increased Observations by Caregivers PATIENT GENDER DATA: Male ALLERGIES: Reviewed and unchanged CONTRAST ALLERGY: No EXAM: CT -CONTRAST INDUCED NEPHROPATHY RISK FACTORS: Patient age > 60 years CREATININE: Creatinine Date Value Ref Range Status 02/07/2020 0.89 0.73 - 1.22 mg/dL Final 12/15/2019 0.88 0.6 - 1.3 MG/DL Final 01/26/2019 0.72 0.67 - 1.17 mg/dL Final 01/25/2019 0.77 0.67 - 1.17 mg/dL Final eGFR-All Other Races Date Value Ref Range Status 02/07/2020 >60 . Final Comment: eGFR (Estimated GFR) Units of measure: mL/min/1.73 meters squared eGFR is derived from the reexpressed MDRD Study equation using the following parameters: serum creatinine, age, gender and race. The creatinine assay has been calibrated to be traceable to IDMS. An eGFR <60 mL/min/1.73m2 for >3 months is consistent with chronic kidney disease. Refer to KDOQI guidelines for clinical interpretation. In patients with unstable renal function, e.g. those with acute kidney injury, the eGFR may not accurately reflect actual GFR. eGFR- Date Value Ref Range Status 02/07/2020 >60 Final P.O.C.T. RESULTS: N/A February 14, 2020 TREATMENT: N/A and No Hydration needed. IV SITE: Ambulatory: A peripheral IV was started in the Right antecubital site with a Angio cath: 20 gauge. IV SITE APPEARANCE: Clean,Dry and Intact SIGNATURE: Oanh Mccloud RN PATIENT NAME: Denny Gomez DATE: February 14, 2020 TIME: 8:24 AM Normal [facility] CBCon 01-01-2020 ABSOLUTE BAS 0.1 10*3/uL Normal 0.0-0.2 [facility]3] Comment on above: Performed By: #### E LAWSON TRIMBLE, CHEM7F #### Testing performed at [facility]3] [address] [place] [address] ABSOLUTE EOS 0.00 10*3/uL Normal 0.0-0.7 [facility]3] Comment on above: Performed By: #### E SR ACLORI, CHEM7F #### Testing performed at [address] [place] [address] ABSOLUTE NEUTROPHIL COUNT 6.5 10*3/uL Normal 1.4-6.5 [facility]3] Comment on above: Performed By: #### LAWSON Ricks SR CHEM7F #### Testing performed at [address] [place] [address] Basophils/100 WBC (Bld) 0.8 % Normal 0.0-2.0 [facility] Comment on above: Performed By: #### MARIS Ricks SRBC, CHEM7F #### Testing performed at [address] [place] [address] DTYPE AUTO DIFF Normal [facility]3] Comment on above: Performed By: #### Millicent TRIMBLE ACLORI, CHEM7F #### Testing performed at [address] [address] Eosinophils/100 WBC (Bld) 0.4 % Normal 0.0-11.0 [facility]3] Comment on above: Performed By: #### LAWSON Ricks SR, CHEM7F #### Testing performed at [address] [place] [address] Lymphocytes (Bld) [#/Vol] 2.10 10*3/uL Normal 1.2-3.4 [facility]3] Comment on above: Performed By: #### Millicent TRIMBLE ACBC, CHEM7F #### Testing performed at [address] [place] [address] Lymphocytes/100 WBC (Bld) 22.5 % Normal 20.0-55.0 [facility]3] Comment on above: Performed By: #### Millicent TRIMBLE ACBC, CHEM7F #### Testing performed at [address] [place] [address] Monocytes (Bld) [#/Vol] 0.6 10*3/uL Normal 0.0-0.7 [facility]3] Comment on above: Performed By: #### Millicent TRIMBLE, ACBC, CHEM7F #### Testing performed at [address] [place] [address] Monocytes/100 WBC (Bld) 6.7 % Normal 0.0-10.0 [facility] Comment on above: Performed By: #### Millicent TRIMBLE ACBC, CHEM7F #### Testing performed at [address] [address] Neutrophils/100 WBC (Bld) 69.6 % Normal 37.0-75.0 [facility]3] Comment on above: Performed By: #### Millicent TRIMBLE ACBC, CHEM7F #### Testing performed at [address] [address] Erythrocyte distribution width (RBC) [Ratio] 13.0 % Normal 11.5-14.5 [facility]3] Comment on above: Performed By: #### E SR ACBC, CHEM7F #### Testing performed at [address] [address] Hematocrit (Bld) [Volume fraction] 41.3 % Low 42.0-52.0 [facility]3] Comment on above: Performed By: #### E SR ACBC, CHEM7F #### Testing performed at [address] [address] Hemoglobin (Bld) [Mass/Vol] 13.8 g/dL Low 14.0-18.0 [facility]3] Comment on above: Performed By: #### Millicent TRIMBLE ACBC, CHEM7F #### Testing performed at [address] [address] MCH (RBC) [Entitic mass] 33.1 pg Normal 26.0-35.0 [facility]3] Comment on above: Performed By: #### E SR ACBC, CHEM7F #### Testing performed at [address] [address] MCHC (RBC) [Mass/Vol] 33.4 g/dL Normal 27.0-37.0 [facility] Comment on above: Performed By: #### E SR ACBC, CHEM7F #### Testing performed at [address] [address] MCV (RBC) [Entitic vol] 99.0 fL Normal 80.0-100.0 [facility] Comment on above: Performed By: #### E , ACBC, CHEM7F #### Testing performed at [address] [address] Platelet mean volume (Bld) [Entitic vol] 8.8 fL Normal 7.4-11.0 [facility]3] Comment on above: Performed By: #### LAWSON Ricks SR, CHEM7F #### Testing performed at [address] [address] Platelets (Bld) [#/Vol] 223 10*3/uL Normal 130.0-400.0 [facility]3] Comment on above: Performed By: #### Millicent TRIMBLE, LAWSON, CHEM7F #### Testing performed at [address] [address] RBC (Bld) [#/Vol] 4.17 10*6/uL Normal 4.0-6.1 [facility]3] Comment on above: Performed By: #### Millicent TRIMBLE, LAWSON, CHEM7F #### Testing performed at [address] [address] WBC (Bld) [#/Vol] 9.3 10*3/uL Normal 3.6-11.0 [facility]3] Comment on above: Performed By: #### Millicent TRIMBLE, LAWSON, CHEM7F #### Testing performed at [address] [address] CBC, EDIF, PLATELETon 2019 ABSOLUTE BASOPHIL COUNT 0.1 10*3/uL 0 - 0.2 10*3/uL [facility] [employer] Basophils/100 WBC (Bld) 0.8 % 0 - 2 % A [employer] Differential cell count method Nom (Bld) AUTO DIFF % [facility] [employer] Eosinophils (Bld) [#/Vol] 0.00 10*3/uL 0 - 0.7 10*3/uL [facility] [employer] Eosinophils/100 WBC (Bld) 0.4 % 0 - 11 % [facility] [employer] Erythrocyte distribution width (RBC) [Ratio] 13.0 % 11.5 - 14.5 % [facility] [employer] Hematocrit (Bld) [Volume fraction] 41.3 % Low 42 - 52 % [facility] [employer] Hemoglobin (Bld) [Mass/Vol] 13.8 g/dL Low [facility] [employer] Interpretation and review of laboratory results Abnormal [facility] [employer] Lymphocytes (Bld) [#/Vol] 2.10 10*3/uL 1.2 - 3.4 10*3/uL [facility] Lymphocytes/100 WBC (Bld) 22.5 % 20 - 55 % [facility] [employer] MCH (RBC) [Entitic mass] 33.1 pg 26 - 35 PG [facility] [employer] MCHC (RBC) [Mass/Vol] 33.4 g/dL [facility] [employer] MCV (RBC) [Entitic vol] 99.0 fL [facility] [employer] Monocytes (Bld) [#/Vol] 0.6 10*3/uL 0 - 0.7 10*3/uL [facility] [employer] Monocytes/100 WBC (Bld) 6.7 % 0 - 10 % [facility] [place] [employer] Neutrophils (Bld) [#/Vol] 6.5 10*3/uL 1.4 - 6.5 10*3/uL [facility] [employer] Neutrophils/100 WBC (Bld) 69.6 % 37 - 75 % [facility] [employer] Platelet mean volume (Bld) [Entitic vol] 8.8 fL [facility] [employer] Platelets (Bld) [#/Vol] 223 10*3/uL 130 - 400 10*3/uL [facility] [employer] RBC (Bld) [#/Vol] 4.17 10*6/uL 4 - 6.1 10*6/uL [facility] [employer] WBC (Bld) [#/Vol] 9.3 10*3/uL 3.6 - 11 10*3/uL [facility] [employer] CHEM 7 FASTINGon 01-01-2020 Creatinine [Mass/Vol] 0.73 mg/dL Normal 0.66-1.25 [facility] Comment on above: Performed By: #### E SR, ACBC, CHEM7F #### [place] [address] EST. GFR, >60 Normal [facility]3] Comment on above: Performed By: #### E SR, ACBC, CHEM7F #### [place] [address] EST. GFR,Non >60 Normal [facility]3] Comment on above: Performed By: #### E SR, ACBC, CHEM7F #### [place] [address] GFR/1.73 sq M predicted among non-blacks MDRD (S/P/Bld) [Vol rate/Area] Average GFR for 60-69 years old = 85. Normal [facility]3] Comment on above: Result Comment: Organic Preparation Technician dayanna Kidney disease, GFR = <60. Kidney failure, GFR = <15. The GFR estimate is not adjusted for extreme body surface area or acute process, nor has it been validated for women or ethnic groups other than and . Performed By: #### Millicent TRIMBLE ACBC, CHEM7F #### Testing performed at [address] [address] Urea nitrogen [Mass/Vol] 10 mg/dL Normal 7-20 [facility]3] Comment on above: Performed By: #### LAWSON Ricks SR, CHEM7F #### Testing performed at [address] [address] Chloride [Moles/Vol] 106 mmol/L Normal 98-107 [facility] Comment on above: Performed By: #### LAWSON Ricks SR, CHEM7F #### Testing performed at [address] [address] CO2 [Moles/Vol] 23 mmol/L Normal 22-30 [facility]3] Comment on above: Performed By: #### LAWSON Ricks SR, CHEM7F #### Testing performed at [address] [address] Glucose [Mass/Vol] 97 mg/dL Normal 70-100 [facility]3] Comment on above: Result Comment: NORMAL <100 mg/dL PREDIABETES 101-126 mg/dL DIABETES 126 mg/dL or higher Performed By: #### Millicent TRIMBLE ACLORI, CHEM7F #### Testing performed at [address] [address] Potassium [Moles/Vol] 3.7 mmol/L Normal 3.5-5.1 [facility] Comment on above: Performed By: #### Millicent TRIMBLE ACLORI, CHEM7F #### Testing performed at [address] [address] Sodium [Moles/Vol] 136 mmol/L Normal 136-145 [facility]3] Comment on above: Performed By: #### Millicent TRIMBLE ACBC, CHEM7F #### Testing performed at [place] [id number] CHEM 7 (LYTES,BUN,CREA,GLUC) on 01-01-2020 Chloride [Moles/Vol] 106 mmol/L [facility] CO2 [Moles/Vol] 23 mmol/L [facility] Creatinine [Mass/Vol] 0.73 mg/dL [facility] GFR/1.73 sq M predicted among blacks MDRD (S/P/Bld) [Vol rate/Area] mL/min/{1.73_m2} ml/min/1.73 sq.m [facility] GFR/1.73 sq M predicted among non-blacks MDRD (S/P/Bld) [Vol rate/Area] Average GFR for 60-69 years old = 85. [facility] Comment on above: Chronic Kidney disea se, GFR = <60. Kidney failure, GFR = <15. The GFR estimate is not adjusted for extreme body surface area or acute process, nor has it been validated for women or ethnic groups other than and . GFR/1.73 sq M predicted among non-blacks MDRD (S/P/Bld) [Vol rate/Area] mL/min/{1.73_m2} ml/min/1.73 sq.m [facility] Glucose post fast [Mass/Vol] 97 mg/dL [facility] Comment on above: NORMAL <100 mg/dL PREDIABETES 101-126 mg/dL DIABETES 126 mg/dL or higher Potassium [Moles/Vol] 3.7 mmol/L [facility] Sodium [Moles/Vol] 136 mmol/L [facility] Urea nitrogen [Mass/Vol] 10 mg/dL [facility] ESRon 01-01-2020 ESR (Bld) [Velocity] 6 mm/h Normal 0-20 [facility] Comment on above: Performed By: #### E SR, ACBC, CHEM7F #### Testing performed at [address] [address] SEDIMENTATION RATE, AUTOMATE Don 01-01-2020 ESR (Bld) [Velocity] 6 mm/h [facility] XR FOOT RIGHT 3 VIEWSon 12-04 XR FOOT RIGHT 3 VIEWS EXAM: XR FOOT RIGH T 3 VIEWS INDICATION: swelling COMPARISON: None. TECHNIQUE: AP, lateral, oblique views of the right foot. FINDINGS: The bones are osteopenic. The tarsometatarsal alignment is preserved. There is no acute fracture. Pes planus. Tiny enthesophyte is seen along the plantar fascial attachment of the calcaneus. There is mild dorsal soft tissue swelling of the midfoot. IMPRESSION: Osteopenia. Pes planus. Mild dorsal soft tissue swelling of the midfoot without any acute osseous abnormality. Normal [facility]3] IMPRESSION: Osteopen ia. Pes planus. Mild dorsal soft tissue swelling of the midfoot without any acute osseous abnormality. [facility] EXAM: XR FOOT RIGHT 3 VIEWS INDICATION: swelling COMPARISON: None. TECHNIQUE: AP, lateral, oblique views of the right foot. FINDINGS: The bones are osteopenic. The tarsometatarsal alignment is preserved. There is no acute fracture. Pes planus. Tiny enthesophyte is seen along the plantar fascial attachment of the calcaneus. There is mild dorsal soft tissue swelling of the midfoot. [facility] User, Interfaces 01/01/2020 1:01 PM EDT EXAM: XR FOOT RIGHT 3 VIEWS INDICATION: swelling COMPARISON: None. TECHNIQUE: AP, lateral, oblique views of the right foot. FINDINGS: The bones are osteopenic. The tarsometatarsal alignment is preserved. There is no acute fracture. Pes planus. Tiny enthesophyte is seen along the plantar fascial attachment of the calcaneus. There is mild dorsal soft tissue swelling of the midfoot. IMPRESSION IMPRESSION: Osteopenia. Pes planus. Mild dorsal soft tissue swelling of the midfoot without any acute osseous abnormality. [facility] CBC WITH AUTO DIFFERENTIALon 12-27-2019 Basophils (Bld) [#/Vol] 0.09 10*3/uL [facility] Basophils/100 WBC (Bld) 0.9 % [facility] Eosinophils (Bld) [#/Vol] 0.17 10*3/uL [facility] Eosinophils/100 WBC (Bld) 1.7 % [facility] Erythrocyte distribution width (RBC) [Entitic vol] 12.2 % 11.6 - 14.8 % [facility] Hematocrit (Bld) [Volume fraction] 45.2 % 41 - 53 % [facility] Hemoglobin (Bld) [Mass/Vol] 14.6 g/dL 13.5 - 17.5 g/dL [facility] Immature granulocytes (Bld) [#/Vol] 0.09 10*3/uL [facility] Immature granulocytes/100 WBC (Bld) 0.90 % [facility] Comment on above: The IG parameter is the percentage of metamyelocytes, myelocytes and promyelocytes. An immature granulocyte count (IG) of 1% or more suggests the possibility of infection, an IG count of 3% is very likely related to an infection. Interpretation and review of laboratory results Abnormal [facility] Lymphocytes (Bld) [#/Vol] 3.09 10*3/uL [facility] Lymphocytes/100 WBC (Bld) 30.4 % [facility] MCH (RBC) [Entitic mass] 32.5 pg 26 - 34 pg [facility] MCHC (RBC) [Mass/Vol] 32.3 g/dL 31 - 3 7 g/dL [facility] MCV (RBC) [Entitic vol] 100.7 fL High 80 - 100 fL [facility] Monocytes (Bld) [#/Vol] 0.64 10*3/uL [facility] Monocytes/100 WBC (Bld) 6.3 % [facility] Neutrophils (Bld) [#/Vol] 6.10 10*3/uL [facility] Neutrophils/100 WBC (Bld) 59.8 % [facility] Nucleated RBC (Bld) [#/Vol] 0.00 10*3/uL [facility] Nucleated RBC/100 WBC (Bld) [Ratio] 0.0 % [facility] Platelet mean volume (Bld) [Entitic vol] 10.4 fL 9.4 - 12.4 fL [facility] Platelets (Bld) [#/Vol] 255 10*3/uL [facility] RBC (Bld) [#/Vol] 4.49 10*6/uL [facility] ealth WBC (Bld) [#/Vol] 10.18 10*3/uL [facility] Chem 7on 12-27-2019 Anion gap [Moles/Vol] 11 mmol/L 10 - 2 0 mmol/L [facility] Chloride [Moles/Vol] 112 mmol/L High 98 - 10 8 mmol/L [facility] Creatinine [Mass/Vol] 0.86 mg/dL 0.80 - 1.30 [facility] GFR/1.73 sq M predicted among non-blacks MDRD (S/P/Bld) [Vol rate/Area] The eGFR should be used for monitoring renal function only and not for medication dosing. [facility] GFR/1.73 sq M.predicted CKD-EPI (S/P/Bld) [Vol rate/Area] 91 >=60 mL/min/1.73 m2 [facility] GFR/1.73 sq M.predicted CKD-EPI (S/P/Bld) [Vol rate/Area] 105 >=60 mL/min/1.73 m2 [facility] Glucose [Mass/Vol] 94 mg/dL 65 - 99 mg/dL [facility] HCO3 [Moles/Vol] 25 mmol/L 21 - 32 mmol/L [facility] Interpretation and review of laboratory results Abnormal [facility] Potassium [Moles/Vol] 3.9 mmol/L 3.5 - 5.1 mmol/L [facility] Sodium [Moles/Vol] 144 mmol/L 135 - 145 mmol/L [facility] Urea nitrogen [Mass/Vol] 14 mg/dL 8 - 25 mg/dL [facility] Urea nitrogen/Creatinine [Mass ratio] 16.3 mg/mg [facility] NT Pro BNPon 12-27-2019 Interpretation and review of laboratory results Normal [facility] Natriuretic peptide.B prohormone N-Terminal [Mass/Vol] 71 pg/mL 0 - 300 pg/mL [facility] Pride Study Cut-offs Rule In: < /= 50 Years >450 pg/mL 51 Years - 75 Years >900 pg/mL 76 Years - 99 Years >1800 pg/mL Rule Out: All patients <300 pg/mL [facility] Otheron 12-27-2019 Extra Tube Hold for add-ons. [facility] Comment on above: Auto resulted. TROPONINon 12-27-2019 Troponin I.cardiac [Mass/Vol] ng/mL <=45 ng/L [facility] Troponin I.cardiac [Mass/Vol] Normal [facility] XR CHEST PA/APon 12-27-2019 XR CHEST PA/AP EXAMINATION: XR CHEST PA/AP 12/27/2019 9:41 am HISTORY: ORDERING SYSTEM PROVIDED HISTORY: Lower extremity edema, TECHNOLOGIST PROVIDED HISTORY: Illness/Other Reason for exam: lower extremity edema Cancer History: u Surgery, RadiationHistory: u Encounter Type: Initial Additional signs and symptoms: hx htn, smoker ORDERING SYSTEM PROVIDED DIAGNOSIS CODES: COMPARISON: None FINDINGS: Heart is normal in size. There is hyperexpansion of the lungs and flattening of the hemidiaphragms indicating COPD. Lungs are free of focal infiltrates. EKG leads overlie the chest. IMPRESSION: 1. Changes consistent with COPD. 2. No focal infiltrates. Workstation ID: [id number] Dictated by: THOMAS JOHNSON on FriDecember 27, 2019 9:53:47 AM EDT Transcribed by: THOMAS JOHNSON on FriDecember 27, 2019 9:53:47 AM EDT Finalized by: THOMAS JOHNSON on FriDecember 27, 2019 9:53:47 AM EDT [facility] Comment on above: Order Comment: Injur y/Trauma or Illness?:Illness/Other How long have you had these symptoms (acute/chronic)?:Acute Reason for exam?:lower extremity edema History of cancer?:u Surgeries, chemotherapy, or radiation?:u Type of Exam?:Initial Additional signs and symptoms?:hx htn, smoker XR Chest 1 Viewon 12-27-2019 1. Changes consisten t with COPD. 2. No focal infiltrates. Workstation ID: [id number] [facility] EXAMINATION: XR CHES T PA/AP 12/27/2019 9:41 am HISTORY: ORDERING SYSTEM PROVIDED HISTORY: Lower extremity edema, TECHNOLOGIST PROVIDED HISTORY: Illness/Other Reason for exam: lower extremity edema Cancer History: u Surgery, RadiationHistory: u Encounter Type: Initial Additional signs and symptoms: hx htn, smoker ORDERING SYSTEM PROVIDED DIAGNOSIS CODES: COMPARISON: None FINDINGS: Heart is normal in size. There is hyperexpansion of the lungs and flattening of the hemidiaphragms indicating COPD. Lungs are free of focal infiltrates. EKG leads overlie the chest. [facility] Interface, Rad In Fu ji Speechq - 12/27/2019 9:56 AM EDT EXAMINATION: XR CHEST PA/AP 12/27/2019 9:41 am HISTORY: ORDERING SYSTEM PROVIDED HISTORY: Lower extremity edema, TECHNOLOGIST PROVIDED HISTORY: Illness/Other Reason for exam: lower extremity edema Cancer History: u Surgery, RadiationHistory: u Encounter Type: Initial Additional signs and symptoms: hx htn, smoker ORDERING SYSTEM PROVIDED DIAGNOSIS CODES: COMPARISON: None FINDINGS: Heart is normal in size. There is hyperexpansion of the lungs and flattening of the hemidiaphragms indicating COPD. Lungs are free of focal infiltrates. EKG leads overlie the chest. IMPRESSION: 1. Changes consistent with COPD. 2. No focal infiltrates. Workstation ID: [id number] [facility] CNOVon 06-09-2019 CNOV Office Visit ([place] ) DENNY GOMEZ ([id number]) 1955 M Date Time Provider Department 06/09/19 10:45 AM WESTON CRESPO During your visit today, we recorded the following information about you: Pulse Respiration Blood pressure Weight 74/minute 16/minute 136/76 71.2 kg Height 1.727 m Weston Crespo MD 06/09/2019 11:22 AM Signed NEUROSURGERY FOLLOW UP OFFICE NOTE Weston Crespo MD Date of visit: June 09, 2019 Patient Name: Mr.Jack Gomez Date of : 1955 Current Age: [age] year old Sex: male MRN/E# [id number] Last Office Visit: 05/18/2019 Chief Complaint: Patient presents with: Established Patient: SDH SUBJECTIVE: Mr. Gomez presents to the office today for a hospital follow up for SDH. He was seen at [facility] on 01/25/2019 after a fall up two stairs. He had fallen two days prior and began experiencing headache with intermittent double vision. His imaging demonstrated a left occipital parenchymal contusion with tentorail SDH. Repeat imaging was stable and no surgical intervention was recommended. The patient was seen by Dr. Harrell in follow up regarding his vision changes and his office called requesting we see him sooner to reevaluate his symptoms. He was seen in the office on 02/03/19 where he had complaints of a constant headache with continued peripheral vision loss to the right AND intermittent blurred vision. He denied loss of balance or seizure activity. His imaging at his last visit revealed resolution of his left occipital parenchymal contusion with tentorail SDH. Since his last visit, he continues to have intermittent blurry vision and right peripheral vision loss. However, he is being followed by opthalmology for this. His notes an increase in forgetfulness. He is still currently experiencing generalized headaches. He is here for evaluation and plan of care. Symptoms: Headache, peripheral vision loss ? PREVIOUS CONSERVATIVE TREATMENTS: Opioids ? PREVIOUS SURGERY: None PAIN EVALUATION 06/09/2019 1104 Pain Location: Head memory loss, blurred vision memory loss, blurred vision Description: Pressure Frequency: Intermittent Comments: ? forgetting more, balance/bumping into things. forgetting more, balance/bumping into things. PAST MEDICAL HISTORY Diagnosis Date - Anxiety and depression - Mixed hyperlipidemia Hyperlipidemia - Occlusion of right carotid artery 01/30/[address] Lukasz Beasley - Unspecified essential hypertension Essential hypertension PAST SURGICAL HISTORY Procedure Laterality Date - INSERT CATH,ART,PERCUT,SHORTTE RM 02-16-08 - PAST SURGICAL HISTORY OF Left 2012 Lt elbow cyst excision - THROMBOENDARTECTMY NECK,NECK INCIS 02-16-08 FAMILY HISTORY Problem Relation Age of Onset - Heart Mother - Heart Brother - Cancer Brother metastatic; no primary known ALLERGIES Allergen Reactions - Seasonal Allergies Other: See Comments Sinus, runny nose Current Outpatient Medications Medication Sig Dispense Refill - dextromethorphan (DELSYM) 30 mg/5 mL liquid Take 10 mL by mouth twice daily. - alendronate (FOSAMAX) 70 mg tablet Take 1 tablet by mouth once each week. Take with a full glass of water, on an empty stomach; do NOT lie down for 30minutes. 4 tablet 12 - pravastatin (PRAVACHOL) 20 mg tablet Take 1 tablet by mouth daily at bedtime. 30 tablet 11 - albuterol HFA (PROVENTIL HFA, VENTOLIN HFA) 90 mcg/actuation inhaler Inhale 2 Puffs as instructed every 6 hours as needed. 1 Inhaler 0 - amLODIPine (NORVASC) 2.5 mg tablet Take 1 tablet by mouth once daily. 30 tablet 11 - citalopram (CELEXA) 40 mg tablet Take 1 tablet by mouth once daily. 30 tablet 11 - calcium carbonate-vitamin D3 1,000 mg(2,500 mg)-800 unit tab Take 1,000 mg by mouth once daily. - cholecalciferol, Vitamin D3, (VITAMIN D3) 50,000 unit cap capsule Take 1 capsule by mouth once each week. 4 capsule 2 - albuterol HFA (PROAIR HFA) 90 mcg/actuation inhaler Inhale 2 Puffs as instructed every 4 hours as needed for up to 15 days. 1 Inhaler 0 - cetirizine (ZYRTEC) 10 mg tablet Take 1 tablet by mouth once daily. as needed for nasal drainage (Patient not taking: Reported on 06/09/2019 ) 30 tablet 0 - levETIRAcetam (KEPPRA) 1,000 mg tablet Take 1 tablet by mouth twice daily for 14 doses. (Patient not taking: Reported on 04/12/2019 ) 14 tablet 0 No current facility-administered medications for this visit. REVIEW OF SYSTEMS Review of Systems Constitutional: Positive for fatigue. Negative for chills and fever. HENT: Negative for congestion, ear discharge, ear pain and sinus pressure. Eyes: Negative for discharge and itching. Respiratory: Negative for cough, shortness of breath and wheezing. Cardiovascular: Negative for chest pain, palpitations and leg swelling. Gastrointestinal: Negative for constipation, diarrhea and nausea. Endocrine: Negative for cold intolerance and heat intolerance. Genitourinary: Negative for difficulty urinating, frequency and urgency. Musculoskeletal: Negative for back pain, gait problem and neck pain. Skin: Negative for rash and wound. Allergic/Immunologic: Positive for environmental allergies. Negative for food allergies. Neurological: Positive for light-headedness and headaches. Negative for dizziness, tremors, seizures, syncope, facial asymmetry, speech difficulty, weakness and numbness. Hematological: Does not bruise/bleed easily. Psychiatric/Behavioral: Negative for agitation. The patient is not nervous/anxious. OBJECTIVE: BP 136/76 Pulse 74 Resp 16 Ht 5' 8" (1.73m) Wt 157 lb (71.2kg) SpO2 96% BMI 23.88 kg/(m2). Physical Exam Constitutional: He is oriented to person, place, and time and well-developed, well-nourished, and in no distress. HENT: Head: Normocephalic. Right Ear: Hearing normal. Left Ear: Hearing normal. Eyes: No nystagmus. Neck: Normal range of motion. Pulmonary/Chest: Effort normal. Musculoskeletal: Normal range of motion. Neurological: He is alert and oriented to person, place, and time. Gait normal. Skin: Skin is warm and dry. Psychiatric: His speech is normal. Affect normal. Neurological Exam Mental Status Alert. Recent and remote memory are intact. Speech is normal. Language is fluent with no aphasia. Attention and concentration are normal. Fund of knowledge is appropriate for level of education. Cranial Nerves CN II: Some issue with right peripheral vision.. Left visual acuity: normal. CN III, IV, : No nystagmus. Right pupil: 3 mm. Round. Reactive to light. Left pupil: 3 mm. Round. Reactive to light. CN V: Right: Facial sensation is normal. Left: Facial sensation is normal on the left. CN VII: Right: There is no facial weakness. Left: There is no facial weakness. CN VIII: Right: Hearing is normal. Left: Hearing is normal. CN XII: Tongue midline without atrophy or fasciculations. Motor Right Left Elbow flexion 5 5 Elbow extension 5 5 Hip flexion 5 5 Knee flexion 5 5 Knee extension 5 5 Plantarflexion 5 5 Dorsiflexion 5 5 Sensory Light touch is normal in upper and lower extremities. Coordination Right: Lbjkzv-az-jwel normal. Pcje-wi-xcyk normal. Left: Ppfudu-tc-ihik normal. Pkml-he-ralg normal. Gait Normal casual, toe, heel and tandem gait. Normal gait. Romberg is absent. Data Review IMAGING STUDIES: CT brain performed 06/09/19. Findings were noted as: No evidence of recurrent hemorrhage or residual bleeding. Personal review of medical records: I reviewed with the patient, history, physical exam, the images and the chart. 1. Subdural hematoma (HCC) The patient returns today for follow-up with concerns for headache and some memory impairment. His examination is normal. His CT scan does not show any evidence of residual or recurrent bleeding. I told him no surgical treatment is indicated at this time. He will follow up with me in the future should the need arise. I told his he might benefit from a neurological evaluation by one of our neurology colleagues to rule out any other underlying problems with his memory. Weston Crespo MD Referring Provider: MALU ROWE [[id number]] Allergies As of Date: 06/09/2019 Noted Allergy Reaction SEASONAL ALLERGIES 2016 14 - Other: See Comments Comments: Sinus, runny nose Date Reviewed: 06/09/2019 Reviewed by: Weston Crespo - Fully Assessed Reason for Visit: Established Patient [175] Cmt: SDH Primary Visit Diagnosis:Subdural hematoma (HCC) [S06.5X9A] Prescriptions as of 06/09/2019 Sig: DEXTROMETHORPHAN POLISTIREX E* Take 10 mL by mouth twice silvia* ALENDRONATE 70 MG TABLET Take 1 tablet by mouth once e* PRAVASTATIN 20 MG TABLET Take 1 tablet by mouth daily * ALBUTEROL SULFATE HFA 90 MCG/* Inhale 2 Puffs as instructed * AMLODIPINE 2.5 MG TABLET Take 1 tablet by mouth once d* CITALOPRAM 40 MG TABLET Take 1 tablet by mouth once d* CALCIUM CARBONATE-VITAMIN D3 * Take 1,000 mg by mouth once d* CHOLECALCIFEROL (VITAMIN D3) * Take 1 capsule by mouth once * ALBUTEROL SULFATE HFA 90 MCG/* Inhale 2 Puffs as instructed * CETIRIZINE 10 MG TABLET Take 1 tablet by mouth once d* Patient not taking: Reported on 06/09/2019 LEVETIRACETAM 1,000 MG TABLET Take 1 tablet by mouth twice * Patient not taking: Reported on 04/12/2019 Problem List As Of Date 06/09/2019 Noted Resolved Occlusion of right carotid artery [I65.21] INVALID FOR* More... Anxiety and depression [F41.9, F32.9] Mixed hyperlipidemia [E78.2] More... Essential hypertension [I10] More... 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] INVALID FOR* Combined forms of age-related cataract of both *INVALID FOR* Letter Text Encounter Status:Closed by WESTON CRESPO MD on 06/09/19 [facility] [address] BRAIN WO IVCONon 06-09-20 CT BRAIN WO IVCON * * *Final Report* * * DATE OF EXAM: Jun 09 2019 10:51AM A1C 0504 - CT BRAIN WO IVCON / PROCEDURE REASON: Subdural hematoma (HCC) * * * * Physician Interpretation * * * * EXAMINATION: CT BRAIN WO IVCON CLINICAL HISTORY: Subdural hematoma (HCC) follow up subdural hematoma s/p fall 01/2019 TECHNIQUE: Serial axial images without IV contrast were obtained from the vertex to the foramen magnum. MQ: [id number] CT Dose-Length Product (DLP): 794.52 mGy*cm CT Dose Reduction Employed: No dose reduction techniques were required COMPARISON: CT brain 02/03/2019 and 01/26/2019 RESULT: Post-operative change: None. Acute change: No evidence of an acute infarct or other acute parenchymal process. Hemorrhage: No evidence of acute intracranial hemorrhage. Mass Lesion / Mass Effect: There is no evidence of an intracranial mass or extraaxial fluid collection. No significant mass effect. Chronic change: Scattered patchy foci of low attenuation are present within supratentorial white matter which is a nonspecific finding but likely represents mild microvascular ischemia. There is mild focal encephalomalacia within the posterior left parietal lobe corresponding to region of prior parenchymal hemorrhage. Parenchyma: There is no significant volume loss. The brain parenchyma is otherwise within normal limits for age. Ventricles: Ventricular enlargement concordant with the degree of parenchymal volume loss. Paranasal sinuses and skull base: The visualized paranasal sinuses are grossly clear. There is an expanded heterogeneous appearance of the occipital bone consistent with Paget's. IMPRESSION: 1. No acute intracranial abnormality is seen. There is no evidence of acute intracranial hemorrhage. 2. Mild encephalomalacia of the left posterior parietal region corresponding to area of prior parenchymal contusion. Information Services Manager: TORY Transcribe Date/Time: Jun 10 2019 10:38A Dictated by : HAJA LOZADA MD This examination was interpreted and the report reviewed and electronically signed by: HAJA LOZADA MD on Jun 10 2019 10:44AM EST Normal [facility] PROGRESSon 06-09-2019 PROGRESS HNO ID: [id number] Author: Weston Crespo Service: ? Author Type: Physician Type: Progress Notes Filed: 06/09/2019 11:22 AM Note Text: NEUROSURGERY FOLLOW UP OFFICE NOTE Weston Crespo MD Date of visit: June 09, 2019 Patient Name: Mr.Jack Gomez Date of : 1955 Current Age: [age] year old Sex: male MRN/E# [id number] Last Office Visit: 05/18/2019 Chief Complaint: Patient presents with: Established Patient: SDH SUBJECTIVE: Mr. Gomez presents to the office today for a hospital follow up for SDH. He was seen at [facility] on 01/25/2019 after a fall up two stairs. He had fallen two days prior and began experiencing headache with intermittent double vision. His imaging demonstrated a left occipital parenchymal contusion with tentorail SDH. Repeat imaging was stable and no surgical intervention was recommended. The patient was seen by Dr. Harrell in follow up regarding his vision changes and his office called requesting we see him sooner to reevaluate his symptoms. He was seen in the office on 02/03/19 where he had complaints of a constant headache with continued peripheral vision loss to the right AND intermittent blurred vision. He denied loss of balance or seizure activity. His imaging at his last visit revealed resolution of his left occipital parenchymal contusion with tentorail SDH. Since his last visit, he continues to have intermittent blurry vision and right peripheral vision loss. However, he is being followed by opthalmology for this. His notes an increase in forgetfulness. He is still currently experiencing generalized headaches. He is here for evaluation and plan of care. Symptoms: Headache, peripheral vision loss ? PREVIOUS CONSERVATIVE TREATMENTS: Opioids ? PREVIOUS SURGERY: None PAIN EVALUATION 06/09/2019 1104 Pain Location: Head memory loss, blurred vision memory loss, blurred vision Description: Pressure Frequency: Intermittent Comments: ? forgetting more, balance/bumping into things. forgetting more, balance/bumping into things. PAST MEDICAL HISTORY Diagnosis Date - Anxiety and depression - Mixed hyperlipidemia Hyperlipidemia - Occlusion of right carotid artery 01/30/[address] Lukasz Beasley - Unspecified essential hypertension Essential hypertension PAST SURGICAL HISTORY Procedure Laterality Date - INSERT CATH,ART,PERCUT,SHORTTE RM 02-16-08 - PAST SURGICAL HISTORY OF Left 2012 Lt elbow cyst excision - THROMBOENDARTECTMY NECK,NECK INCIS 02-16-08 FAMILY HISTORY Problem Relation Age of Onset - Heart Mother - Heart Brother - Cancer Brother metastatic; no primary known ALLERGIES Allergen Reactions - Seasonal Allergies Other: See Comments Sinus, runny nose Current Outpatient Medications Medication Sig Dispense Refill - dextromethorphan (DELSYM) 30 mg/5 mL liquid Take 10 mL by mouth twice daily. - alendronate (FOSAMAX) 70 mg tablet Take 1 tablet by mouth once each week. Take with a full glass of water, on an empty stomach; do NOT lie down for 30minutes. 4 tablet 12 - pravastatin (PRAVACHOL) 20 mg tablet Take 1 tablet by mouth daily at bedtime. 30 tablet 11 - albuterol HFA (PROVENTIL HFA, VENTOLIN HFA) 90 mcg/actuation inhaler Inhale 2 Puffs as instructed every 6 hours as needed. 1 Inhaler 0 - amLODIPine (NORVASC) 2.5 mg tablet Take 1 tablet by mouth once daily. 30 tablet 11 - citalopram (CELEXA) 40 mg tablet Take 1 tablet by mouth once daily. 30 tablet 11 - calcium carbonate-vitamin D3 1,000 mg(2,500 mg)-800 unit tab Take 1,000 mg by mouth once daily. - cholecalciferol, Vitamin D3, (VITAMIN D3) 50,000 unit cap capsule Take 1 capsule by mouth once each week. 4 capsule 2 - albuterol HFA (PROAIR HFA) 90 mcg/actuation inhaler Inhale 2 Puffs as instructed every 4 hours as needed for up to 15 days. 1 Inhaler 0 - cetirizine (ZYRTEC) 10 mg tablet Take 1 tablet by mouth once daily. as needed for nasal drainage (Patient not taking: Reported on 06/09/2019 ) 30 tablet 0 - levETIRAcetam (KEPPRA) 1,000 mg tablet Take 1 tablet by mouth twice daily for 14 doses. (Patient not taking: Reported on 04/12/2019 ) 14 tablet 0 No current facility-administered medications for this visit. REVIEW OF SYSTEMS Review of Systems Constitutional: Positive for fatigue. Negative for chills and fever. HENT: Negative for congestion, ear discharge, ear pain and sinus pressure. Eyes: Negative for discharge and itching. Respiratory: Negative for cough, shortness of breath and wheezing. Cardiovascular: Negative for chest pain, palpitations and leg swelling. Gastrointestinal: Negative for constipation, diarrhea and nausea. Endocrine: Negative for cold intolerance and heat intolerance. Genitourinary: Negative for difficulty urinating, frequency and urgency. Musculoskeletal: Negative for back pain, gait problem and neck pain. Skin: Negative for rash and wound. Allergic/Immunologic: Positive for environmental allergies. Negative for food allergies. Neurological: Positive for light-headedness and headaches. Negative for dizziness, tremors, seizures, syncope, facial asymmetry, speech difficulty, weakness and numbness. Hematological: Does not bruise/bleed easily. Psychiatric/Behavioral: Negative for agitation. The patient is not nervous/anxious. OBJECTIVE: BP 136/76 Pulse 74 Resp 16 Ht 5' 8" (1.73m) Wt 157 lb (71.2kg) SpO2 96% BMI 23.88 kg/(m2). Physical Exam Constitutional: He is oriented to person, place, and time and well-developed, well-nourished, and in no distress. HENT: Head: Normocephalic. Right Ear: Hearing normal. Left Ear: Hearing normal. Eyes: No nystagmus. Neck: Normal range of motion. Pulmonary/Chest: Effort normal. Musculoskeletal: Normal range of motion. Neurological: He is alert and oriented to person, place, and time. Gait normal. Skin: Skin is warm and dry. Psychiatric: His speech is normal. Affect normal. Neurological Exam Mental Status Alert. Recent and remote memory are intact. Speech is normal. Language is fluent with no aphasia. Attention and concentration are normal. Fund of knowledge is appropriate for level of education. Cranial Nerves CN II: Some issue with right peripheral vision.. Left visual acuity: normal. CN III, IV, : No nystagmus. Right pupil: 3 mm. Round. Reactive to light. Left pupil: 3 mm. Round. Reactive to light. CN V: Right: Facial sensation is normal. Left: Facial sensation is normal on the left. CN VII: Right: There is no facial weakness. Left: There is no facial weakness. CN VIII: Right: Hearing is normal. Left: Hearing is normal. CN XII: Tongue midline without atrophy or fasciculations. Motor Right Left Elbow flexion 5 5 Elbow extension 5 5 Hip flexion 5 5 Knee flexion 5 5 Knee extension 5 5 Plantarflexion 5 5 Dorsiflexion 5 5 Sensory Light touch is normal in upper and lower extremities. Coordination Right: Igwsjo-iv-vxdj normal. Yiot-sc-wipx normal. Left: Jjqzco-vh-jdtt normal. Xkoo-to-lkqf normal. Gait Normal casual, toe, heel and tandem gait. Normal gait. Romberg is absent. Data Review IMAGING STUDIES: CT brain performed 06/09/19. Findings were noted as: No evidence of recurrent hemorrhage or residual bleeding. Personal review of medical records: I reviewed with the patient, history, physical exam, the images and the chart. 1. Subdural hematoma (HCC) The patient returns today for follow-up with concerns for headache and some memory impairment. His examination is normal. His CT scan does not show any evidence of residual or recurrent bleeding. I told him no surgical treatment is indicated at this time. He will follow up with me in the future should the need arise. I told his he might benefit from a neurological evaluation by one of our neurology colleagues to rule out any other underlying problems with his memory. Weston Crespo MD [facility] CNOVon 02-03-2019 OV Office Visit ([place] ) DENNY GOMEZ ([id number]) 1955 M Date Time Provider Department 02/03/19 9:30 AM WESTON CRESPO During your visit today, we recorded the following information about you: Pulse Blood pressure 70/minute 132/70 Weston Crespo MD 02/03/2019 9:05 AM Signed NEUROSURGERY FOLLOW UP OFFICE NOTE Weston Crespo MD Date of visit: February 03, 2019 Patient Name: Mr.Jack Gomez Date of : 1955 Current Age: [age] year old Sex: male MRN/E# [id number] Last Office Visit: 02/01/2019 Chief Complaint: Patient presents with: Hospital Follow Up SUBJECTIVE: Mr. Gomez presents to the office today for a hospital follow up for SDH. He was seen at [facility] on 01/25/2019 after a fall up two stairs. He had fallen two days prior and began experiencing headache with intermittent double vision. His imaging demonstrated a left occipital parenchymal contusion with tentorail SDH. Repeat imaging was stable and no surgical intervention was recommended. The patient was seen by Dr. Harrell in follow up regarding his vision changes and his office called requesting we see him sooner to reevaluate his symptoms. Today he states he continues to experience a constant headache with continued peripheral vision loss to the right AND intermittent blurred vision. He denies loss of balance or seizure activity. He presents today for evaluation and plan of care. Symptoms: Headache PREVIOUS CONSERVATIVE TREATMENTS: Opioids PREVIOUS SURGERY: None PAIN EVALUATION 02/03/2019 Pain Level: 8 PAST MEDICAL HISTORY Diagnosis Date - Anxiety and depression - Mixed hyperlipidemia Hyperlipidemia - Occlusion of right carotid artery 01/30/[address] Lukasz Beasley - Unspecified essential hypertension Essential hypertension PAST SURGICAL HISTORY Procedure Laterality Date - INSERT CATH,ART,PERCUT,SHORTTE RM 02-16-08 - PAST SURGICAL HISTORY OF Left 2012 Lt elbow cyst excision - THROMBOENDARTECTMY NECK,NECK INCIS 02-16-08 FAMILY HISTORY Problem Relation Age of Onset - Heart Mother - Heart Brother - Cancer Brother metastatic; no primary known ALLERGIES Allergen Reactions - Seasonal Allergies Unknown Current Outpatient Medications Medication Sig Dispense Refill - HYDROcodone-acetaminoph en (NORCO) 5-325 mg per tablet Take 1 tablet by mouth every 6 hours as needed for Pain for up to 7 days. 28 tablet 0 - levETIRAcetam (KEPPRA) 1,000 mg tablet Take 1 tablet by mouth twice daily for 14 doses. 14 tablet 0 - dextromethorphan (DELSYM) 30 mg/5 mL liquid Take 10 mL by mouth twice daily. - alendronate (FOSAMAX) 70 mg tablet Take 1 tablet by mouth once each week. Take with a full glass of water, on an empty stomach; do NOT lie down for 30minutes. 4 tablet 12 - pravastatin (PRAVACHOL) 20 mg tablet Take 1 tablet by mouth daily at bedtime. 30 tablet 11 - cetirizine (ZYRTEC) 10 mg tablet Take 1 tablet by mouth once daily. as needed for nasal drainage 30 tablet 0 - albuterol HFA (PROVENTIL HFA, VENTOLIN HFA) 90 mcg/actuation inhaler Inhale 2 Puffs as instructed every 6 hours as needed. 1 Inhaler 0 - amLODIPine (NORVASC) 2.5 mg tablet Take 1 tablet by mouth once daily. 30 tablet 11 - citalopram (CELEXA) 40 mg tablet Take 1 tablet by mouth once daily. 30 tablet 11 - calcium carbonate-vitamin D3 1,000 mg(2,500 mg)-800 unit tab Take 1,000 mg by mouth once daily. - cholecalciferol, Vitamin D3, (VITAMIN D3) 50,000 unit cap capsule Take 1 capsule by mouth once each week. 4 capsule 2 No current facility-administered medications for this visit. REVIEW OF SYSTEMS Review of Systems Constitutional: Negative for chills, diaphoresis and fever. HENT: Negative for congestion, ear discharge and sinus pressure. Eyes: Negative for discharge and itching. Respiratory: Negative for cough, shortness of breath and wheezing. Gastrointestinal: Negative for constipation, diarrhea and nausea. Endocrine: Negative for cold intolerance and heat intolerance. Genitourinary: Negative for difficulty urinating, frequency and urgency. Musculoskeletal: Negative for back pain, gait problem and neck pain. Allergic/Immunologic: Negative for environmental allergies and food allergies. Neurological: Positive for dizziness and headaches. Negative for tremors, seizures, weakness and numbness. Hematological: Does not bruise/bleed easily. Psychiatric/Behavioral: Negative for agitation. The patient is not nervous/anxious. OBJECTIVE: BP 132/70 Pulse 70 SpO2 97% Physical Exam Constitutional: He is oriented to person, place, and time and well-developed, well-nourished, and in no distress. HENT: Head: Normocephalic and atraumatic. Right Ear: External ear normal. Left Ear: External ear normal. Eyes: Pupils are equal, round, and reactive to light. Conjunctivae and lids are normal. Neck: Normal range of motion. Pulmonary/Chest: Effort normal. Musculoskeletal: Normal range of motion. Neurological: He is oriented to person, place, and time. Coordination normal. Skin: Skin is warm and dry. Psychiatric: His speech is normal. Mood and affect normal. Neurological Exam Mental Status Awake, alert and oriented to person, place and time. Recent and remote memory are intact. Speech is normal. Language is fluent with no aphasia. Attention and concentration are normal. Fund of knowledge is appropriate for level of education. Cranial Nerves CN II: Visual acuity is normal. Right homonymous hemianopsia. CN III, IV, : Extraocular movements intact bilaterally. Normal lids and orbits bilaterally. Pupils equal round and reactive to light bilaterally. CN V: Facial sensation is normal. CN VII: Full and symmetric facial movement. CN VIII: Hearing is normal. CN IX, X: Palate elevates symmetrically. Normal gag reflex. CN XI: Shoulder shrug strength is normal. CN XII: Tongue midline without atrophy or fasciculations. Motor Normal muscle bulk throughout. No fasciculations present. Normal muscle tone. Sensory Sensation is intact to light touch, pinprick, vibration and proprioception in all four extremities. Coordination Wfhkgm-mp-maml, rapid alternating movements and idrh-fs-hqwt normal bilaterally without dysmetria. Gait Normal casual, toe, heel and tandem gait. Data Review IMAGING STUDIES: CT Scan performed on 02/03/2019. Findings were noted as demonstrating left occipital mild hypodensity likely suggestive of healing brain. There is no acute interval rebleeding. CT of the brain on 01/26/2019: IMPRESSION: 1. No evidence of acute interval rebleeding. 2. Stable intraparenchymal hemorrhages left parietal- occipital region. 3. Stable tentorial subdural hematoma * * * * * * * * ADDENDUM #1 * * * * * * * * Impression: Paget's disease of the occipital bone ? Personal review of medical records: I reviewed with the patient, history, physical exam, the images and the chart. 1. Subdural hematoma (HCC) The patient presents today following a head injury. He had developed a left occipital parenchymal contusion as well as a subdural hematoma overlying the tentorium. His current CT scan shows resolution of these issues. He continues to have monofilament was hemianopsia on the right side. I explained to him that this is likely related to his occipital contusion. I told him that there is no role for surgical intervention at this point. All of his questions of been discussed in great detail. I advised him against driving and told him he should consider how this impacts his job. He will contact me should need arise in the future. Weston Crespo MD Referring Provider: MALU ROWE [[id number]] Allergies As of Date: 02/03/2019 Noted Allergy Reaction SEASONAL ALLERGIES 2016 16 - Unknown Date Reviewed: 02/03/2019 Reviewed by: Weston Crespo - Fully Assessed Reason for Visit: Hospital Follow Up [177] Primary Visit Diagnosis:Subdural hematoma (HCC) [S06.5X9A] Order(s):CONSULT TO [facility] [9031] Order #: [id number]: 1 Prescriptions as of 02/03/2019 Sig: HYDROCODONE 5 MG-ACETAMINOPHE* Take 1 tablet by mouth every * LEVETIRACETAM 1,000 MG TABLET Take 1 tablet by mouth twice * DEXTROMETHORPHAN POLISTIREX E* Take 10 mL by mouth twice silvia* ALENDRONATE 70 MG TABLET Take 1 tablet by mouth once e* PRAVASTATIN 20 MG TABLET Take 1 tablet by mouth daily * CETIRIZINE 10 MG TABLET Take 1 tablet by mouth once d* ALBUTEROL SULFATE HFA 90 MCG/* Inhale 2 Puffs as instructed * AMLODIPINE 2.5 MG TABLET Take 1 tablet by mouth once d* CITALOPRAM 40 MG TABLET Take 1 tablet by mouth once d* CALCIUM CARBONATE-VITAMIN D3 * Take 1,000 mg by mouth once d* CHOLECALCIFEROL (VITAMIN D3) * Take 1 capsule by mouth once * Problem List As Of Date 02/03/2019 Noted Resolved Occlusion of right carotid artery [I65.21] INVALID FOR* More... Anxiety and depression [F41.9, F32.9] Mixed hyperlipidemia [E78.2] More... Essential hypertension [I10] More... 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 Follow-up and Disposition History Recorded Letter Text Encounter Status:Closed by WESTON CRESPO MD on 02/03/19 [facility] PROGRESSon 02-03-2019 PROGRESS HNO ID: [id number] Author: Weston Crespo Service: ? Author Type: Physician Type: Progress Notes Filed: 02/03/2019 9:05 AM Note Text: NEUROSURGERY FOLLOW UP OFFICE NOTE Weston Crespo MD Date of visit: February 03, 2019 Patient Name: Mr.Jack Gomez Date of : 1955 Current Age: [age] year old Sex: male MRN/E# [id number] Last Office Visit: 02/01/2019 Chief Complaint: Patient presents with: Hospital Follow Up SUBJECTIVE: Mr. Gomez presents to the office today for a hospital follow up for SDH. He was seen at [facility] on 01/25/2019 after a fall up two stairs. He had fallen two days prior and began experiencing headache with intermittent double vision. His imaging demonstrated a left occipital parenchymal contusion with tentorail SDH. Repeat imaging was stable and no surgical intervention was recommended. The patient was seen by Dr. Harrell in follow up regarding his vision changes and his office called requesting we see him sooner to reevaluate his symptoms. Today he states he continues to experience a constant headache with continued peripheral vision loss to the right AND intermittent blurred vision. He denies loss of balance or seizure activity. He presents today for evaluation and plan of care. Symptoms: Headache PREVIOUS CONSERVATIVE TREATMENTS: Opioids PREVIOUS SURGERY: None PAIN EVALUATION 02/03/2019 Pain Level: 8 PAST MEDICAL HISTORY Diagnosis Date - Anxiety and depression - Mixed hyperlipidemia Hyperlipidemia - Occlusion of right carotid artery 01/30/[address] Lukasz Beasley - Unspecified essential hypertension Essential hypertension PAST SURGICAL HISTORY Procedure Laterality Date - INSERT CATH,ART,PERCUT,SHORTTE RM 02-16-08 - PAST SURGICAL HISTORY OF Left 2013 Lt elbow cyst excision - THROMBOENDARTECTMY NECK,NECK INCIS 02-16-08 FAMILY HISTORY Problem Relation Age of Onset - Heart Mother - Heart Brother - Cancer Brother metastatic; no primary known ALLERGIES Allergen Reactions - Seasonal Allergies Unknown Current Outpatient Medications Medication Sig Dispense Refill - HYDROcodone-acetaminoph en (NORCO) 5-325 mg per tablet Take 1 tablet by mouth every 6 hours as needed for Pain for up to 7 days. 28 tablet 0 - levETIRAcetam (KEPPRA) 1,000 mg tablet Take 1 tablet by mouth twice daily for 14 doses. 14 tablet 0 - dextromethorphan (DELSYM) 30 mg/5 mL liquid Take 10 mL by mouth twice daily. - alendronate (FOSAMAX) 70 mg tablet Take 1 tablet by mouth once each week. Take with a full glass of water, on an empty stomach; do NOT lie down for 30minutes. 4 tablet 12 - pravastatin (PRAVACHOL) 20 mg tablet Take 1 tablet by mouth daily at bedtime. 30 tablet 11 - cetirizine (ZYRTEC) 10 mg tablet Take 1 tablet by mouth once daily. as needed for nasal drainage 30 tablet 0 - albuterol HFA (PROVENTIL HFA, VENTOLIN HFA) 90 mcg/actuation inhaler Inhale 2 Puffs as instructed every 6 hours as needed. 1 Inhaler 0 - amLODIPine (NORVASC) 2.5 mg tablet Take 1 tablet by mouth once daily. 30 tablet 11 - citalopram (CELEXA) 40 mg tablet Take 1 tablet by mouth once daily. 30 tablet 11 - calcium carbonate-vitamin D3 1,000 mg(2,500 mg)-800 unit tab Take 1,000 mg by mouth once daily. - cholecalciferol, Vitamin D3, (VITAMIN D3) 50,000 unit cap capsule Take 1 capsule by mouth once each week. 4 capsule 2 No current facility-administered medications for this visit. REVIEW OF SYSTEMS Review of Systems Constitutional: Negative for chills, diaphoresis and fever. HENT: Negative for congestion, ear discharge and sinus pressure. Eyes: Negative for discharge and itching. Respiratory: Negative for cough, shortness of breath and wheezing. Gastrointestinal: Negative for constipation, diarrhea and nausea. Endocrine: Negative for cold intolerance and heat intolerance. Genitourinary: Negative for difficulty urinating, frequency and urgency. Musculoskeletal: Negative for back pain, gait problem and neck pain. Allergic/Immunologic: Negative for environmental allergies and food allergies. Neurological: Positive for dizziness and headaches. Negative for tremors, seizures, weakness and numbness. Hematological: Does not bruise/bleed easily. Psychiatric/Behavioral: Negative for agitation. The patient is not nervous/anxious. OBJECTIVE: BP 132/70 Pulse 70 SpO2 97% Physical Exam Constitutional: He is oriented to person, place, and time and well-developed, well-nourished, and in no distress. HENT: Head: Normocephalic and atraumatic. Right Ear: External ear normal. Left Ear: External ear normal. Eyes: Pupils are equal, round, and reactive to light. Conjunctivae and lids are normal. Neck: Normal range of motion. Pulmonary/Chest: Effort normal. Musculoskeletal: Normal range of motion. Neurological: He is oriented to person, place, and time. Coordination normal. Skin: Skin is warm and dry. Psychiatric: His speech is normal. Mood and affect normal. Neurological Exam Mental Status Awake, alert and oriented to person, place and time. Recent and remote memory are intact. Speech is normal. Language is fluent with no aphasia. Attention and concentration are normal. Fund of knowledge is appropriate for level of education. Cranial Nerves CN II: Visual acuity is normal. Right homonymous hemianopsia. CN III, IV, : Extraocular movements intact bilaterally. Normal lids and orbits bilaterally. Pupils equal round and reactive to light bilaterally. CN V: Facial sensation is normal. CN VII: Full and symmetric facial movement. CN VIII: Hearing is normal. CN IX, X: Palate elevates symmetrically. Normal gag reflex. CN XI: Shoulder shrug strength is normal. CN XII: Tongue midline without atrophy or fasciculations. Motor Normal muscle bulk throughout. No fasciculations present. Normal muscle tone. Sensory Sensation is intact to light touch, pinprick, vibration and proprioception in all four extremities. Coordination Nxzcju-mk-aeoj, rapid alternating movements and vkdn-kl-vnnf normal bilaterally without dysmetria. Gait Normal casual, toe, heel and tandem gait. Data Review IMAGING STUDIES: CT Scan performed on 02/03/2019. Findings were noted as demonstrating left occipital mild hypodensity likely suggestive of healing brain. There is no acute interval rebleeding. CT of the brain on 01/26/2019: IMPRESSION: 1. No evidence of acute interval rebleeding. 2. Stable intraparenchymal hemorrhages left parietal- occipital region. 3. Stable tentorial subdural hematoma * * * * * * * * ADDENDUM #1 * * * * * * * * Impression: Paget's disease of the occipital bone ? Personal review of medical records: I reviewed with the patient, history, physical exam, the images and the chart. 1. Subdural hematoma (HCC) The patient presents today following a head injury. He had developed a left occipital parenchymal contusion as well as a subdural hematoma overlying the tentorium. His current CT scan shows resolution of these issues. He continues to have monofilament was hemianopsia on the right side. I explained to him that this is likely related to his occipital contusion. I told him that there is no role for surgical intervention at this point. All of his questions of been discussed in great detail. I advised him against driving and told him he should consider how this impacts his job. He will contact me should need arise in the future. 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 No Advance Directive: Health Literacy: 1. How often do you need to have someone help you when you read instructions, pamphlets, or other written material from your doctor or pharmacy? Never - 1 2. How confident are you filling out medical forms by yourself? Extremely - 1 If Patient scores > 3 on either question, the following interventions were put into place: Patient did not score > 3 FUNCTIONAL AND COGNITIVE/BEHAVIORAL PRIOR TO ADMISSION: Baseline Mental Status: Alert AND Oriented, Person, Place , Time and Situation Functional Status: Independent Does Patient Currently Receive Any Community Services or Home Care? None Equipment Prior to Admission: None Has the Patient Been in a Long Term Facility in the Past 30 days? No SOCIAL: Living Arrangement: Home Lives With: Spouse Financial Resources: N/A Primary Contact: Extended Emergency Contact Information Primary Emergency Contact: Betsey Gomez Address: [address] [place], [place] [id number] [place] [address] OF [place] Mobile Relation: Spouse Secondary Emergency Contact: Dominick Aguillon Mobile Relation: Friend Supportive: Yes Other Important Patient Contacts: None Caregiver Assessment: Caregiver is ready, willing and able to meet the patient's needs as recommended by the inter-professional team? Yes Patient's transition needs and plan for meeting these needs: TBD Does the patient have an acute stroke diagnosis, or has the patient had a stroke during this admission? Yes, Traumatic Medication Adherence: I am convinced of the importance of my prescription medication: Agree completely - 0 I worry that my prescription medication will do more harm than good to me Disagree completely - 0 I feel financially burdened by my eri-ha-wsoizl expenses for my prescription medication: Disagree completely - 0 Patient is categorized as low risk < 2 Are you interested in bedside delivery of your medications? No Food Concerns: In the Last Month, Have You had Trouble Getting Food? No trouble getting food During the Last Month, Have You Worried Whether Your Food Would Run Out Before You Had Enough Money to Buy More? No Is the Patient Psychosocially Complex? No ASSESSMENT AND PLAN: Medical Needs: None Psychosocial Needs: None FREEDOM OF CHOICE EXPLAINED: N/A POTENTIAL TRANSITION PLANS Home Pt's Betsey answered assessment questions. 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 Pharmacy is [facility] in [place]. PT/OT frances. SIGNATURE: Randee Ceron RN PATIENT NAME: Denny Gomez DATE: January 26, 2019 TIME: 10:22 AM PAGER/CONTACT #: [phone] [facility] CONSULTon 01-26-2019 CONSULT HNO ID: [id number] Author: Gladis Garcia Service: Neurosurgery Author Type: Resident Type: Consults Filed: 01/26/2019 1:48 AM Note Text: Attestation signed by Weston Crespo at 01/26/2019 10:30 AM Attending addendum: The patient is a 63-year-old -[place] male who tripped while walking up steps 2 days ago. He did not have loss of consciousness but developed worsening headaches and reported some visual changes with intermittent double vision while writing. His CT scan demonstrates a left occipital parenchymal contusion with some tentorial subdural hematoma noted to be stable on repeat CT scanning from this morning. No surgical intervention is planned. We'll continue to monitor the patient's condition for the time being. Weston Crespo MD CONSULT: NEUROSURGERY SERVICE CATEGORY: Level 3 SERVICE DATE: 01/25/2019 SERVICE TIME: 7:17 PM Subjective This is a 63 year old Black male. He tripped while walking up the steps 2 days ago. No LOC. No pain or headache until today and reports some vision changes--intermittent double vision when he is trying to write. ALLERGIES Allergen Reactions - Seasonal Allergies Unknown (Not in a hospital admission) Immunization History Administered Date(s) Administered Tdap (Age 7+) 12/15/2015 PAST MEDICAL HISTORY Diagnosis Date - Anxiety and depression - Mixed hyperlipidemia Hyperlipidemia - Occlusion of right carotid artery 01/30/[address] Lukasz Beasley - Unspecified essential hypertension Essential hypertension PAST SURGICAL HISTORY Procedure Laterality Date - INSERT CATH,ART,PERCUT,SHORTTE RM 02-16-08 - PAST SURGICAL HISTORY OF Left 2012 Lt elbow cyst excision - THROMBOENDARTECTMY NECK,NECK INCIS 02-16-08 Social History Socioeconomic History Marital status: Spouse name: Not on file Number of children: Not on file Years of education: Not on file Highest education level: Not on file Social Needs Financial resource strain: Not on file Food insecurity - worry: Not on file Food insecurity - inability: Not on file Transportation needs - medical: Not on file Transportation needs - non-medical: Not on file Occupational History Not on file Tobacco Use Smoking status: Current Every Day Smoker Packs/day: 0.50 Years: 15.00 Pack years: 7.5 Types: Cigarettes Smokeless tobacco: Never Used Tobacco comment: 1 pack per 4 to 5 days (started 10 to 15 years ago)--as of 12/15/15 Substance and Sexual Activity Alcohol use: Yes Drug use: Yes Sexual activity: Yes Partners: Female Other Topics Concerns: Service: No Blood Transfusions: No Caffeine Concern: No Occupational Exposure: No Hobby Hazards: No Sleep Concern: No Stress Concern: No Weight Concern: No Special Diet: No Back Care: No Exercise: No Bike Helmet: No Seat Belt: No Self-Exams: No Social History Narrative Not on file ROS: Is the patient having any pain? Yes LOCATION: yes, frontal headache and back of his head Constitutional: Negative Eye/Ear/Nose: Negative Respiratory: Negative Cardiovascular: Negative GI/Liver/Biliary: Negative Genitourinary: Negative Psychiatric: Negative Neurologic: Negative Musculoskeletal: Negative Integument: Negative Endocrine: Negative Heme/Lymph: Negative Objective PRIMARY SURVEY AIRWAY: Patent BREATHING: Breath sounds equal CIRCULATION: PT/DP equal and intact B/L, Radials equal and intact B/L DISABILITY: Eye: 4=Spontaneous Verbal: 5=Oriented and Converses Motor: 6=Obeys Commands Total GCS: 15=4 Resp Rate: 10 to 29=4 Syst BP: > than 89=4 REVISED TRAUMA SCORE: 12 EXPOSE / ENVIRONMENT: Warm Blankets PROCEDURES: none SECONDARY SURVEY VITALS: BP 172/102 Pulse 71 Temp (Src) 97.7 (Oral) Resp 18 Ht 5' 8" (1.73m) Wt 157 lb (71.2kg) SpO2 97% BMI 23.88 kg/(m2). O2 Therapy: Room Air NEURO: Alert AND Oriented x 3, GCS 15, Cranial Nerves II-XII Intact, Moves All Extremities, Strength Symmetrical, No Sensory Deficits HEENT: Head: No lacerations or abrasions, no bony step offs, midface stable to palpation, Eyes: PERRL, conjunctiva/corneas without lesions, EOM intact, Ears: Canals without blood or CSF drainage, TMs clear, external ears without lacerations, Nose: Septum midline, no crepitus with motion, Throat: Oral mucosa without lacerations, teeth in place, tongue without lacerations NECK: No pain with active ROM, No lacerations/wounds, No JVD, Trachea midline, C7 pain to palpation RESPIRATORY: No abrasions or contusions, No crepitus, No TTP, Equal Excursion CARDIOVASCULAR: Heart rate regular ABDOMEN: Non-distended, Non-tenderness or peritoneal signs PELVIC/PERINEAL: Normal male genitalia, Pelvis stable to palpation BACK/SPINE: Thoracolumbar spinal column non-tender, No step off or deformity noted, No external injury noted EXTREMITIES: no acute RADIOLOGICAL/OTHER TEST DATA: CXR: No traumatic injuries CT Head: Positive findings L occipital contusions and minmal tenotrial SDH CT C-Spine/Neck: report was not transferred with pt Pelvis: No traumatic injuries PRIOR TO ARRIVAL: No Loss of ConsciousnessIMAGES No orders to display LABS: pending Assessment/Plan DIAGNOSES: 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 Crespo at 1:48 AM and the above plan reflects their recommendations. Gladis Garcia MD General Surgery, PGY-2 January 26, 2019 1:39 AM Normal [facility] CONSULT HNO ID: [id number] Author: Gladis Garcia Service: Critical Care Author Type: Resident Type: Consults Filed: 01/25/2019 11:32 PM Note Text: Attestation signed by Jr Aguirre at 01/26/2019 9:07 PM Attending Note I discussed with resident. The patient was not examined by the attending. I reviewed the resident's note. I agree with the resident's assessment and plan unless otherwise noted. Signature: Jr Aguirre MD Date: 01/26/2019. Time: 9:07 PM CONSULT: SICU SERVICE SICU Service Pager: For questions or concerns Mon-Fri 6a-5p please page [phone]. After 5pm and on Weekends and Holidays, please page [phone]. CATEGORY: Level 3 SERVICE DATE: 01/25/2019 SERVICE TIME: 7:17 PM Subjective This is a 63 year old Black male. He tripped while walking up the steps 2 days ago. No LOC. No pain or headache until today and reports some vision changes--intermittent double vision when he is trying to write. ALLERGIES Allergen Reactions - Seasonal Allergies Unknown (Not in a hospital admission) Immunization History Administered Date(s) Administered Tdap (Age 7+) 12/15/2015 PAST MEDICAL HISTORY Diagnosis Date - Anxiety and depression - Mixed hyperlipidemia Hyperlipidemia - Occlusion of right carotid artery 01/30/[address] Lukasz Beasley - Unspecified essential hypertension Essential hypertension PAST SURGICAL HISTORY Procedure Laterality Date - INSERT CATH,ART,PERCUT,SHORTTE RM 02-16-08 - PAST SURGICAL HISTORY OF Left 2012 Lt elbow cyst excision - THROMBOENDARTECTMY NECK,NECK INCIS 02-16-08 Social History Socioeconomic History Marital status: Spouse name: Not on file Number of children: Not on file Years of education: Not on file Highest education level: Not on file Social Needs Financial resource strain: Not on file Food insecurity - worry: Not on file Food insecurity - inability: Not on file Transportation needs - medical: Not on file Transportation needs - non-medical: Not on file Occupational History Not on file Tobacco Use Smoking status: Current Every Day Smoker Packs/day: 0.50 Years: 15.00 Pack years: 7.5 Types: Cigarettes Smokeless tobacco: Never Used Tobacco comment: 1 pack per 4 to 5 days (started 10 to 15 years ago)--as of 12/15/15 Substance and Sexual Activity Alcohol use: Yes Drug use: Yes Sexual activity: Yes Partners: Female Other Topics Concerns: Service: No Blood Transfusions: No Caffeine Concern: No Occupational Exposure: No Hobby Hazards: No Sleep Concern: No Stress Concern: No Weight Concern: No Special Diet: No Back Care: No Exercise: No Bike Helmet: No Seat Belt: No Self-Exams: No Social History Narrative Not on file ROS: Is the patient having any pain? Yes LOCATION: yes, frontal headache and back of his head Constitutional: Negative Eye/Ear/Nose: Negative Respiratory: Negative Cardiovascular: Negative GI/Liver/Biliary: Negative Genitourinary: Negative Psychiatric: Negative Neurologic: Negative Musculoskeletal: Negative Integument: Negative Endocrine: Negative Heme/Lymph: Negative Objective PRIMARY SURVEY AIRWAY: Patent BREATHING: Breath sounds equal CIRCULATION: PT/DP equal and intact B/L, Radials equal and intact B/L DISABILITY: Eye: 4=Spontaneous Verbal: 5=Oriented and Converses Motor: 6=Obeys Commands Total GCS: 15=4 Resp Rate: 10 to 29=4 Syst BP: > than 89=4 REVISED TRAUMA SCORE: 12 EXPOSE / ENVIRONMENT: Warm Blankets PROCEDURES: none SECONDARY SURVEY VITALS: BP 172/102 Pulse 71 Temp (Src) 97.7 (Oral) Resp 18 Ht 5' 8" (1.73m) Wt 157 lb (71.2kg) SpO2 97% BMI 23.88 kg/(m2). O2 Therapy: Room Air NEURO: Alert AND Oriented x 3, GCS 15, Cranial Nerves II-XII Intact, Moves All Extremities, Strength Symmetrical, No Sensory Deficits HEENT: Head: No lacerations or abrasions, no bony step offs, midface stable to palpation, Eyes: PERRL, conjunctiva/corneas without lesions, EOM intact, Ears: Canals without blood or CSF drainage, TMs clear, external ears without lacerations, Nose: Septum midline, no crepitus with motion, Throat: Oral mucosa without lacerations, teeth in place, tongue without lacerations NECK: No pain with active ROM, No lacerations/wounds, No JVD, Trachea midline, C7 pain to palpation RESPIRATORY: No abrasions or contusions, No crepitus, No TTP, Equal Excursion CARDIOVASCULAR: Heart rate regular ABDOMEN: Non-distended, Non-tenderness or peritoneal signs PELVIC/PERINEAL: Normal male genitalia, Pelvis stable to palpation BACK/SPINE: Thoracolumbar spinal column non-tender, No step off or deformity noted, No external injury noted EXTREMITIES: no acute RADIOLOGICAL/OTHER TEST DATA: CXR: No traumatic injuries CT Head: Positive findings L occipital contusions and minmal tenotrial SDH CT C-Spine/Neck: report was not transferred with pt Pelvis: No traumatic injuries PRIOR TO ARRIVAL: No Loss of ConsciousnessIMAGES No orders to display LABS: pending Assessment/Plan DIAGNOSES: GLF, L occipital confusion and minimal SDH TREATMENT/EVALUATION PLANS: Neuro: - Pain Control: tylenol, PRN morphine - Seizure ppx: keppra - neurosurg consult - neuro checks, HOB>30, bedrest - maintain c-collar due to c-spine pain CV: - PRN anti-HTN Resp: - stable on O2 Therapy: Room Air - CXR Findings: Unremarkable chest x-ray GI: - NPO until rpt CTH stable - Bowel Regimen: none - GI ppx: pepcid Renal: - IVF - replete lytes prn No intake or output data in the 24 hours ending 01/25/19 0659 Heme: - stable Endo: - stable ID: - no acute Ext: - DVT ppx: SCD - Restraints: none Ppx: - DVT: SCD - GI: pepcid - Seizure: keppra Lines: Peripheral Admission to Hospital Left Antecubital 20 Gauge (Active) Consults: - SICU, NSx Dispo: SICU Patient Checklist Deep vein thrombosis prophylaxis administered? No. Contraindicated.. Stress ulcer prophylaxis? Yes. Pain addressed? Yes. Nutrition: Enteral- No. TPN- No. PO- No. Restraints? No. Dispo needs assessed? Yes. ED DISPOSITION: To ICU FINAL INJURIES: New injuries were identified on physical exam and review of radiological studies. The Senior/Chief Resident/Attending Physician have been informed and the above plan made for injury care and disposition. SIGNATURE: Gladis Garcia MD PATIENT NAME: Denny Gomez DATE: January 25, 2019 TIME: 7:17 PM PAGER/CONTACT #: Trauma Service Pager: For questions or concerns Fri-Fri 6a-5p please page [phone]. After 5pm and on Weekends and Holidays, please page [phone] if in ICU or [phone] if on RNF. [facility] ED NOTEon 01-26-2019 ED NOTE HNO ID: [id number] Author: Kelly LearyRn) NADYA Quezada Service: Nursing Author Type: Registered Nurse Type: ED Notes Filed: 01/25/2019 11:14 PM Note Text: This nurse assumed care of pt, report received from Nicki COVINGTON [facility] NURSING PROGon 01-26-2019 NURSING PROG HNO ID: [id number] Author: Jesu LearyRn) NADYA Frausto Service: Nursing Author Type: Registered Nurse Type: Nursing Progress Note Filed: 01/26/2019 5:09 PM Note Text: Nursing Progress Note Patient Name: Denny Gomez Patient Location: [place] [address] [address] 1* Daily Note:pt Transferred via wheelchair and discharged home. This note was completed by: Jesu Frausto RN [facility] NURSING PROG HNO ID: [id number] Author: Jesu (Rn) NADYA Frausto Service: Nursing Author Type: Registered Nurse Type: Nursing Progress Note Filed: 01/26/2019 2:29 PM Note Text: Nursing Progress Note Patient Name: Denny Gomez Patient Location: [place] [address] [address] 1* Daily Note:pt walked around room was very steady on feet no change in vital signs. Will notify resident prior to discharging home This note was completed by: Jesu Frausto RN [facility] PLAN OF CAREon 01-26-2019 PLAN OF CARE HNO ID: [id number] Author: Enid Wang ([employer]) Service: Pharmacy Author Type: ? Type: Plan of Care Filed: 01/26/2019 2:33 PM Note Text: [facility] BEDSIDE DELIVERY SURVEY 1. Patient to use [facility] Bedside Delivery - NO prefer own pharmacy Insurance Information as follows: 2. Insurance card on file - YES 3. Credit card for payment - N/A Patient declined per CM Assessment on 01/26 Enid Wang ([employer]) Extension [id number], or [phone] [facility] PROGRESSon 01-26-2019 PROGRESS HNO ID: [id number] Author: Jr Aguirre Service: General Surgery Author Type: Physician Type: Progress Notes Filed: 01/26/2019 12:55 PM Note Text: INPATIENT SICU PROGRESS NOTE SERVICE DATE: 01/26/2019 SERVICE TIME: 7:12 AM Subjective Patient feeling better this AM - states double vision has resolved Complaining of mild headache this AM Denies any nausea, vomiting this AM BM this AM Repeat CT Brain this AM Current Facility-Administered Medications Medication Dose Route Frequency - acetaminophen 975 mg tab(s) (TYLENOL) 975 mg ORAL q 6 H - levETIRAcetam 1,000 mg in NaCl 0.9% 100 mL (KEPPRA) 1,000 mg INTRAVENOUS BID - metoprolol 5 mg injection (LOPRESSOR) 5 mg INTRAVENOUS q 6 H PRN - dextrose 5% in NaCl 0.9% iv infusion 125 mL/hr INTRAVENOUS CONTINUOUS - potassium chloride 80-120 mEq oral liquid 80-120 mEq ORAL/FEEDING TUBE PRN - potassium chloride iv piggyback 20 mEq/100 mL 20 mEq INTRAVENOUS PRN - magnesium sulfate in water 2 g in sterile water 50 ml 2 g INTRAVENOUS PRN - sodium phosphate 45 mmol in NaCl 0.9% 250 mL 45 mmol INTRAVENOUS PRN - calcium gluconate 4 g in NaCl 0.9% 250 mL 4 g INTRAVENOUS PRN - famotidine 20 mg injection (PEPCID) 20 mg INTRAVENOUS BID - ondansetron 4 mg tab(s) (ZOFRAN) 4 mg ORAL q 6 H PRN Or - ondansetron (PF) 4 mg injection (ZOFRAN) 4 mg INTRAVENOUS q 6 H PRN - iv contrast (radiology procedure) INTRAVENOUS DIRECTED PRN - oxyCODONE IR 5 mg tab(s) (ROXICODONE) 5 mg ORAL q 6 H PRN Objective VITAL SIGNS BP 138/73 Pulse 84 Temp (Src) 97 (Oral) Resp 20 Ht 5' 8" (1.73m) Wt 139 lb 1.8 oz (63.1kg) SpO2 96% BMI 21.16 kg/(m2). O2 Therapy: Room Air Temp (24hrs), Av.4 ?C (97.5 ?F), Min:36 ?C (96.8 ?F), Max:36.9 ?C (98.4 ?F) Date 01/25/19 07 - 01/26/19 0659 01/26/19 07 - 01/27/19 0659 Shift 0389-7076 8635-5819 1109-3155 24 Hour Total 2766-5977 6367-0646 6877-6250 24 Hour Total INTAKE IV 718 718 D5 NS 718 718 Shift Total 718 718 OUTPUT Urine 375 375 Void (ml) 375 375 # of BMs Number of BMs 1 x 1 x Stool 100 100 Liquid BM (mL) 100 100 Shift Total 475 475 Weight (kg) 71.2 63.1 63.1 63.1 63.1 63.1 63.1 PHYSICAL EXAM: GENERAL: Alert, no distress, cooperative SKIN: Skin color, texture, turgor normal. No rashes or lesions. LUNGS: stable on O2 Therapy: Room Air on sating at SpO2: 96 % CARDIAC: Regular rate and rhythm as above ABDOMEN: soft, nontender, nondistended EXTREMITIES: ROM of all joint grossly normal: strength grossly normal bilaterally. No deformities noted. NEURO: CN 2-12 intact. Sensation/strength intact bilaterally DATA: Diagnostic tests reviewed for today's visit: No results for input(s): BODSITE, CTYPE, PH, PCO2, PO2, BE, HCO3, CO2CT, O2HB, COHB, MHGB, TEMP, PHTC, PCO2T, PO2T, O2AD in the last 72 hours. Recent Labs 01/26/19 0220 01/25/19 2345 CREAT 0.72 0.77 BUN 15 16 NA 136 136 K 3.7 3.7 CHLOR 107 104 CO2 25 25 ANION 8 11 GLUC 105* 91 CA 8.1* 8.9 P 2.9 -- MG 2.2 -- ALB -- 3.4 AST -- 19 ALT -- 24 ALKPHOS -- 140* TBILI -- 1.1* WBC 8.04 9.09* HB 13.1* 13.5* HCT 39.4* 40.1 PLT 158 166 Assessment/Plan This is a 63 year old male with GLF, L occipital confusion and minimal SDH. ACTIVE PROBLEM LIST Occlusion of Right Carotid Artery Anxiety and Depression Mixed Hyperlipidemia Essential Hypertension Paget's Bone Disease Elevated Psa, Less Than 10 Ng/Ml Ich (Intracerebral Hemorrhage) (Hcc) Neuro: - pain control with tylenol, PRN morphine - possibly add oxy - neurosurgery following - neurochecks, HOB > 30, bedrest - maintain c-collar due to c-spine pain - CT C-spine pending - CT Brain pending this AM - keppra 1000mg CV: - metoprolol 5mg q6 hours PRN - otherwise stable Resp: stable on O2 Therapy: Room Air GI: DIET NPO - pepcid for GI PPX - possible diet today Renal: - replace lytes PRN - monitor u/o Intake/Output Summary (Last 24 hours) at 01/26/2019 0659 Last data filed at 01/26/2019 0600 Gross per 24 hour Intake 718 ml Output 475 ml Net 243 ml Heme: HGB - 13.1 from 13.5 - stable Endo: GLU - 105, - stable ID: WBC - 8.04, - no current indication for ABX Ext: - SCDs for DVT PPX Ppx: - SCDs for DVT PPX - Pepcid for GI PPX - keppra Lines: - PIV Consults: - trauma, neurosurgery, SICU Dispo: RNF vs. SICU Patient Checklist Deep vein thrombosis prophylaxis administered? No. Contraindicated.. Stress ulcer prophylaxis? Yes. Pain addressed? Yes. Nutrition: Enteral- No. TPN- No. PO- No. Restraints? No. Dispo needs assessed? Yes. SICU Service Pager: For questions or concerns Mon-Fri 6a-5p please page [phone]. After 5pm and on Weekends and Holidays, please page [phone]. SIGNATURE: Eddie Duke DO PATIENT NAME: Denny Gomez DATE: January 26, 2019 TIME: 7:12 AM PAGER: above Attending Note Doing well Repeat head CT stable inj is subacute Will D/C home F/U with NS Keppra for 7 days total I personally saw and examined the patient. I reviewed the resident's note. I agree with the resident's assessment and plan unless otherwise noted. Signature: Jr Aguirre MD Date: 01/26/2019 Time: 12:54 PM Normal [facility] PROGRESS HNO ID: [id number] Author: Raquel (Roldan Schmidt Service: Trauma Author Type: Resident Type: Progress Notes Filed: 01/26/2019 9:30 AM Note Text: Attestation signed by Carlos A Ruelas at 01/26/2019 2:49 PM Attending Note I personally saw and examined the patient. I reviewed the resident's note. I agree with the resident's assessment and plan unless otherwise noted. Signature: Carlos A Ruelas MD Date: 01/26/2019 Time: 2:49 PM Trauma Surgery Progress Note SERVICE DATE: 01/26/2019 SUBJECTIVE: NAEON. States blurry vision has improved. Denies PARMAR, numbness, weakness. Still complaining of neck pain though states it is more lateral Tolerating diet DIET NPO Nausea No Emesis No Flatus Yes Bowel movement No Pain Controlled Yes Ambulating No OBJECTIVE: Vitals: Temp (24hrs), Av.4 ?C (97.5 ?F), Min:36 ?C (96.8 ?F), Max:36.9 ?C (98.4 ?F) BP 138/73 Pulse 84 Temp 36.1 ?C (97 ?F) Resp 20 Ht 172.7 cm (5' 8") Wt 63.1 kg (139 lb 1.8 oz) SpO2 96% BMI 21.15 kg/m? O2 Therapy: Room Air IANDO: Date 01/25/19699 - 01/26/1965801/26/19699 - 01/27/1960 Shift 4941-5000 6059-0922 6699-9693 24 Hour Total 7045-8258 5211-3611 4243-1933 24 Hour Total INTAKE IV 718 718 D5 NS 718 718 Shift Total 718 718 OUTPUT Urine 375 375 Void (ml) 375 375 # of BMs Number of BMs 1 x 1 x Stool 100 100 Liquid BM (mL) 100 100 Shift Total 475 475 Weight (kg) 71.2 63.1 63.1 63.1 63.1 63.1 63.1 MEDICATIONS Current Facility-Administered Medications Medication Dose Route Frequency - oxyCODONE IR 5 mg tab(s) (ROXICODONE) 5 mg ORAL q 6 H PRN - acetaminophen 975 mg tab(s) (TYLENOL) 975 mg ORAL q 6 H - levETIRAcetam 1,000 mg in NaCl 0.9% 100 mL (KEPPRA) 1,000 mg INTRAVENOUS BID - metoprolol 5 mg injection (LOPRESSOR) 5 mg INTRAVENOUS q 6 H PRN - dextrose 5% in NaCl 0.9% iv infusion 125 mL/hr INTRAVENOUS CONTINUOUS - potassium chloride 80-120 mEq oral liquid 80-120 mEq ORAL/FEEDING TUBE PRN - potassium chloride iv piggyback 20 mEq/100 mL 20 mEq INTRAVENOUS PRN - magnesium sulfate in water 2 g in sterile water 50 ml 2 g INTRAVENOUS PRN - sodium phosphate 45 mmol in NaCl 0.9% 250 mL 45 mmol INTRAVENOUS PRN - calcium gluconate 4 g in NaCl 0.9% 250 mL 4 g INTRAVENOUS PRN - famotidine 20 mg injection (PEPCID) 20 mg INTRAVENOUS BID - ondansetron 4 mg tab(s) (ZOFRAN) 4 mg ORAL q 6 H PRN Or - ondansetron (PF) 4 mg injection (ZOFRAN) 4 mg INTRAVENOUS q 6 H PRN - iv contrast (radiology procedure) INTRAVENOUS DIRECTED PRN Labs: Recent Labs 01/26/19 0220 01/25/19 2345 NA 136 136 K 3.7 3.7 CHLOR 107 104 CO2 25 25 BUN 15 16 CREAT 0.72 0.77 GLUC 105* 91 ANION 8 11 CA 8.1* 8.9 MG 2.2 -- P 2.9 -- ALB -- 3.4 AST -- 19 ALT -- 24 ALKPHOS -- 140* TBILI -- 1.1* WBC 8.04 9.09* HB 13.1* 13.5* HCT 39.4* 40.1 PLT 158 166 INR -- 1.00 Exam: GENERAL: No distress, Alert NEURO: AANDOx3, CN II-XII grossly intact HEENT: normocephalic, atraumatic, c collar in place LUNGS: Unlabored breathing CARDIAC: Regular rate and rhythm as above ABDOMEN: Soft, non-tender, non-distended EXTREMITIES: FRIED, No deformities, No edema SKIN: Skin color, texture, turgor normal, No rashes or lesions ASSESSMENT AND PLAN: Active Hospital Problems Diagnosis Date Noted - ICH (intracerebral hemorrhage) (HCC) 01/25/2019 63 year old male s/p GLF with GLF, L occipital confusion and minimal SDH Imaging performed: 1. CT brain 2. CT cervical 3. CXR 4. PXR ? Traumatic Injuries: 1. L occipital confusion and minimal SDH ? Operations: 1. none ? Care Plan: 1. NPO/IVF 2. Keppra, bedrest, HOB>30, neuro checks 3. Rpt CTH with CTN pending read this am 4. Maintain c-collar due to c-spine pain, NSX recs for continued pain 5. AM labs 6. Pain control 7. Will likely need PT OT post CTs 8. +THC, SW consulted ? Prophylaxis: 1. DVT ppx: SCD Incidentals: 1. none ? Consulted Services and Recommendations: 1. SICU 2. NSx 3. SW ? Dispo Plannin. Likely floor. Discharge planning likely pending PT OT ? Follow Up Needs: 1. NSX follow up TBD SIGNATURE: Raquel Schmidt MD PATIENT NAME: Denny Gomez DATE: January 26, 2019 TIME: 6:39 AM Pager: Trauma Service Pager: For questions or concerns Mon-Fri 6a-5p please page [phone]. After 5pm and on Weekends and Holidays, please page [phone] if in ICU or [phone] if on RNF. [facility] ED NOTEon 01-25-2019 ED NOTE HNO ID: [id number] Author: Randee Ortega) NADYA Roman Service: Emergency Medicine Author Type: Registered Nurse Type: ED Notes Filed: 01/25/2019 8:37 PM Note Text: Patient returned to the Emergency Department. [facility] ED NOTE HNO ID: [id number] Author: Randee Ortega) NADYA Roman Service: Emergency Medicine Author Type: Registered Nurse Type: ED Notes Filed: 01/25/2019 8:37 PM Note Text: Patient transported to [facility] ED NOTE HNO ID: [id number] Author: Randee (Rn) NADYA Roman Service: Emergency Medicine Author Type: Registered Nurse Type: ED Notes Filed: 01/25/2019 7:08 PM Note Text: Exam by [facility] ED NOTE HNO ID: [id number] Author: Tor Wong (Medic) Service: ? Author Type: Bean Snipper and Biomass Boiler Operator Type: ED Notes Filed: 01/25/2019 6:41 PM Note Text: Bed: 08-ED Expected date: 01/25/19 Expected time: 4:35 PM Means of arrival: Other EMS Fire Comments: Honey transfer - trauma consult [facility] ED PROV NOTEon 01-25-2019 ED PROV NOTE HNO ID: [id number] Author: Benji Wyman DO Service: Emergency Medicine Author Type: Resident Type: ED Provider Notes Filed: 01/26/2019 1:07 AM Note Text: Attestation signed by Kelly Wagner MD at 01/26/2019 5:13 PM Attending Note I evaluated the patient and personally participated in the mcclure components. I agree with the resident's findings and plan as documented and have discussed the case and management of the patient's care with the resident. Signature: Kelly Wagner MD Date: 01/26/2019 Time: 5:13 PM ED Provider Note Patient Name: Denny GALLOWAYN: [id number] SERVICE DATE: 01/25/19 History Patient presents with: Fall: per pt he fell 2 days ago onto concrete hitting head states -loc went to work today AND had blurry vision AND coordination was "off" pt aANDox3 speech clear c/o parmar sent from [facility] for neuo consult d/t head bleed 63-year-old male presenting as a transfer from [facility] for trauma evaluation. Patient states that 2 days ago he fell on the concrete hitting his head. Denies any loss consciousness at that time. Patient states he felt fine afterwards until today when he developed double vision and difficulty with coordination and balance. Pt was seen [facility] where he had CT scan of head which showed a subdural hematoma. Pt currently c/o mild headache and continued double vision. Pt denies any new complaints since being transferred here. PAST MEDICAL HISTORY Diagnosis Date - Anxiety and depression - Mixed hyperlipidemia Hyperlipidemia - Occlusion of right carotid artery 01/30/[address] Lukasz Beasley - Unspecified essential hypertension Essential hypertension PAST SURGICAL HISTORY Procedure Laterality Date - INSERT CATH,ART,PERCUT,SHORTTE RM 02-16-08 - PAST SURGICAL HISTORY OF Left 2012 Lt elbow cyst excision - THROMBOENDARTECTMY NECK,NECK INCIS 02-16-08 FAMILY HISTORY Problem Relation Age of Onset - Heart Mother - Heart Brother - Cancer Brother metastatic; no primary known Social History Tobacco Use - Smoking status: Current Every Day Smoker Packs/day: 0.50 Years: 15.00 Pack years: 7.50 Types: Cigarettes - Smokeless tobacco: Never Used - Tobacco comment: 1 pack per 4 to 5 days (started 10 to 15 years ago)--as of 12/15/15 Substance and Sexual Activity - Alcohol use: Yes - Drug use: Yes - Sexual activity: Yes Partners: Female ALLERGIES Allergen Reactions - Seasonal Allergies Unknown Review of Systems Constitutional: Negative for chills and fever. HENT: Negative for congestion and nosebleeds. Respiratory: Negative for shortness of breath and wheezing. Cardiovascular: Negative for chest pain and palpitations. Gastrointestinal: Negative for abdominal pain, constipation, diarrhea, nausea and vomiting. Genitourinary: Negative for dysuria and hematuria. Musculoskeletal: Negative for neck pain and neck stiffness. Skin: Negative for color change and rash. Neurological: Positive for dizziness and headaches. Negative for syncope. Psychiatric/Behavioral: Negative for agitation and confusion. Physical Exam BP 172/102 Pulse 71 Temp (Src) 97.7 (Oral) Resp 18 Ht 5' 8" (1.73m) Wt 157 lb (71.2kg) SpO2 97% BMI 23.88 kg/(m2). O2 Therapy: Room Air Physical Exam Constitutional: He is oriented to person, place, and time. He appears well-developed and well-nourished. HENT: Head: Normocephalic and atraumatic. Eyes: Conjunctivae and EOM are normal. Neck: Normal range of motion. Neck supple. Cardiovascular: Normal rate, regular rhythm and normal heart sounds. Exam reveals no gallop and no friction rub. No murmur heard. Pulmonary/Chest: Effort normal and breath sounds normal. Abdominal: Soft. Bowel sounds are normal. There is no tenderness. There is no rebound and no guarding. Musculoskeletal: He exhibits no edema or deformity. Neurological: He is alert and oriented to person, place, and time. No cranial nerve deficit or sensory deficit. He exhibits normal muscle tone. Coordination normal. Skin: Skin is warm and dry. Capillary refill takes less than 2 seconds. Psychiatric: He has a normal mood and affect. His behavior is normal. Diagnostic Testing ED Labs Ordered and Reviewed - No data to display Procedures ED Course / Clinical Impression MDM / Disposition / Plan Pt is a 63 y/o male sent to [facility]. History and physical performed as described above. On arrival pt's vitals stable and pt non toxic appearing. Patient was subdural hematoma on CT scan obtained from outside hospital. Patient with no focal neural deficits on my exam. Outside records reviewed. Spoke with trauma surgery who is agreed to see the patient, recommending x-ray of chest and pelvis for trauma evaluation. Trauma has seen the patient and will admit under their service. Patient remained stable throughout stay in the emergency department with no change in neurologic status. Patient admitted in stable condition. SIGNATURE: DO Benji Ambrocio (Res) DO Zamzam Resident 01/26/19 0107 Kelly Wagner MD 01/26/19 6403 Normal [facility] ED PROV NOTE HNO ID: [id number] Author: Kelly Wagner MD Service: Emergency Medicine Author Type: Physician Type: ED Provider Notes Filed: 01/25/2019 11:31 PM Note Text: HPI 63-year-old male who presents today as a transfer from an outside hospital because of a fall. He had a CT scan done outside hospital which shows a subdural hematoma. He does not take any blood thinners or have any other complaints other than a mild headache. PE Gen:awake, alert, GCS 15 CV:RRR Pulm:CTAB Abd:soft, NT ED course and plan Trauma was consulted. Outside hospital imaging was reviewed. This patient will be admitted to the ICU. Critical Care I spent a total of 31 minutes of critical care time in the evaluation and management of this patient. 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 The patient received multipe frequent reassessments of neuro status and trauma consultation during the time that critical care was provided.I discussed the plan of care with the Resident and agree with the findings documented. Critical care time excludes separately billed procedures. Kelly Wagner MD Attending Note I evaluated the patient and personally participated in the mcclure components. I agree with the resident's findings and plan as documented and have discussed the case and management of the patient's care with the resident. Signature: Kelly Wagner MD Date: 01/25/2019 Time: 7:05 PM Kelly Wagner MD 01/25/19 2331 Normal [facility] HISTORY PHYSICALon 9 HISTORY PHYSICAL HNO ID: [id number] Author: Gladis Garcia Service: General Surgery Author Type: Resident Type: HANDP Filed: 01/25/2019 11:32 PM Note Text: Attestation signed by Carlos A Ruelas at 01/26/2019 8:25 AM Attending Note Seen during activation in ED I personally saw and examined the patient. I reviewed the resident's note. I agree with the resident's assessment and plan unless otherwise noted. Signature: Carlos A Ruelas MD Date: 01/25/2019 Time: 8:24 PM HANDP: TRAUMA SURGERY SERVICE Trauma Service Pager: For questions or concerns Mon-Fri 6a-5p please page [phone]. After 5pm and on Weekends and Holidays, please page [phone] if in ICU or [phone] if on RNF. CATEGORY: Level 3 SERVICE DATE: 01/25/2019 SERVICE TIME: 7:17 PM Subjective This is a 63 year old Black male. He tripped while walking up the steps 2 days ago. No LOC. No pain or headache until today and reports some vision changes--intermittent double vision when he is trying to write. ALLERGIES Allergen Reactions - Seasonal Allergies Unknown (Not in a hospital admission) Immunization History Administered Date(s) Administered Tdap (Age 7+) 12/15/2015 PAST MEDICAL HISTORY Diagnosis Date - Anxiety and depression - Mixed hyperlipidemia Hyperlipidemia - Occlusion of right carotid artery 01/30/[address] Lukasz Beasley - Unspecified essential hypertension Essential hypertension PAST SURGICAL HISTORY Procedure Laterality Date - INSERT CATH,ART,PERCUT,SHORTTE RM 02-16-08 - PAST SURGICAL HISTORY OF Left 2012 Lt elbow cyst excision - THROMBOENDARTECTMY NECK,NECK INCIS 02-16-08 Social History Socioeconomic History Marital status: Spouse name: Not on file Number of children: Not on file Years of education: Not on file Highest education level: Not on file Social Needs Financial resource strain: Not on file Food insecurity - worry: Not on file Food insecurity - inability: Not on file Transportation needs - medical: Not on file Transportation needs - non-medical: Not on file Occupational History Not on file Tobacco Use Smoking status: Current Every Day Smoker Packs/day: 0.50 Years: 15.00 Pack years: 7.5 Types: Cigarettes Smokeless tobacco: Never Used Tobacco comment: 1 pack per 4 to 5 days (started 10 to 15 years ago)--as of 12/15/15 Substance and Sexual Activity Alcohol use: Yes Drug use: Yes Sexual activity: Yes Partners: Female Other Topics Concerns: Service: No Blood Transfusions: No Caffeine Concern: No Occupational Exposure: No Hobby Hazards: No Sleep Concern: No Stress Concern: No Weight Concern: No Special Diet: No Back Care: No Exercise: No Bike Helmet: No Seat Belt: No Self-Exams: No Social History Narrative Not on file ROS: Is the patient having any pain? Yes LOCATION: yes, frontal headache and back of his head Constitutional: Negative Eye/Ear/Nose: Negative Respiratory: Negative Cardiovascular: Negative GI/Liver/Biliary: Negative Genitourinary: Negative Psychiatric: Negative Neurologic: Negative Musculoskeletal: Negative Integument: Negative Endocrine: Negative Heme/Lymph: Negative Objective PRIMARY SURVEY AIRWAY: Patent BREATHING: Breath sounds equal CIRCULATION: PT/DP equal and intact B/L, Radials equal and intact B/L DISABILITY: Eye: 4=Spontaneous Verbal: 5=Oriented and Converses Motor: 6=Obeys Commands Total GCS: 15=4 Resp Rate: 10 to 29=4 Syst BP: > than 89=4 REVISED TRAUMA SCORE: 12 EXPOSE / ENVIRONMENT: Warm Blankets PROCEDURES: none SECONDARY SURVEY VITALS: BP 172/102 Pulse 71 Temp (Src) 97.7 (Oral) Resp 18 Ht 5' 8" (1.73m) Wt 157 lb (71.2kg) SpO2 97% BMI 23.88 kg/(m2). O2 Therapy: Room Air NEURO: Alert AND Oriented x 3, GCS 15, Cranial Nerves II-XII Intact, Moves All Extremities, Strength Symmetrical, No Sensory Deficits HEENT: Head: No lacerations or abrasions, no bony step offs, midface stable to palpation, Eyes: PERRL, conjunctiva/corneas without lesions, EOM intact, Ears: Canals without blood or CSF drainage, TMs clear, external ears without lacerations, Nose: Septum midline, no crepitus with motion, Throat: Oral mucosa without lacerations, teeth in place, tongue without lacerations NECK: No pain with active ROM, No lacerations/wounds, No JVD, Trachea midline, C7 pain to palpation RESPIRATORY: No abrasions or contusions, No crepitus, No TTP, Equal Excursion CARDIOVASCULAR: Heart rate regular ABDOMEN: Non-distended, Non-tenderness or peritoneal signs PELVIC/PERINEAL: Normal male genitalia, Pelvis stable to palpation BACK/SPINE: Thoracolumbar spinal column non-tender, No step off or deformity noted, No external injury noted EXTREMITIES: no acute RADIOLOGICAL/OTHER TEST DATA: CXR: No traumatic injuries CT Head: Positive findings L occipital contusions and minmal tenotrial SDH CT C-Spine/Neck: report was not transferred with pt Pelvis: No traumatic injuries PRIOR TO ARRIVAL: No Loss of ConsciousnessIMAGES No orders to display LABS: pending Assessment/Plan DIAGNOSES: GLF, L occipital confusion and minimal SDH TREATMENT/EVALUATION PLANS: Imaging performed: 1. CT brain 2. CT cervical 3. CXR 4. PXR Traumatic Injuries: 1. L occipital confusion and minimal SDH Operations: 1. none Care Plan: 1. NPO/IVF 2. Keppra, bedrest, HOB>30, neuro checks 3. Rpt CTH with CTN 4. Maintain c-collar due to c-spine pain 5. AM labs 6. Pain control Prophylaxis: 1. DVT ppx: SCD Incidentals: 1. none Consulted Services and Recommendations: 1. SICU 2. NSx Dispo Plannin. TBD Follow Up Needs: 1. TBD ED DISPOSITION: To ICU FINAL INJURIES: New injuries were identified on physical exam and review of radiological studies. The Senior/Chief Resident/Attending Physician have been informed and the above plan made for injury care and disposition. SIGNATURE: Gladis Garcia MD PATIENT NAME: Denny Gomez DATE: January 25, 2019 TIME: 7:17 PM PAGER/CONTACT #: Trauma Service Pager: For questions or concerns Mon-Fri 6a-5p please page [phone]. After 5pm and on Weekends and Holidays, please page [phone] if in ICU or [phone] if on RNF. Normal [facility] No Panel Information [facility] Vital Signs Date Time Vital Sign Value Performing Clinician Facility 05-20-2025 10:42-0400 Body height 172.[address] Malu Rowe MD Work Phone: [facility] 05-20-2025 10:42-0400 Body mass index (BMI) [Ratio] 22.9 kg/m2 Dr. Malu Rowe MD Work Phone: 1(602)877-294758 [place] [address] 05-20-2025 10:42-0400 Body temperature 98.3 [degF] Dr. Malu Rowe MD Work Phone: 5(432)234-387658 [place] [address] 05-20-2025 10:42-0400 Body weight 68.[address] Malu Rowe MD Work Phone: 3(812)127-567458 [place] [address] 05-20-2025 10:42-0400 Diastolic blood pressure 72 mm[Hg] Dr. Malu Rowe MD Work Phone: 8(611)096-317458 [place] [address] 05-20-2025 10:42-0400 Heart rate 64 /min Dr. Malu Rowe MD Work Phone: 6(444)324-099558 [place] [address] 05-20-2025 10:42-0400 Respiratory rate 18 /min Dr. Malu Rowe MD Work Phone: 1(883)807-619958 [place] [address] 05-20-2025 10:42-0400 SaO2% (BldA) [Mass fraction] 97 % Dr. Malu Rowe MD Work Phone: 7(549)909-668258 [place] [address] 05-20-2025 10:42-0400 Systolic blood pressure 118 mm[Hg] Dr. Malu Rowe MD Work Phone: 0(392)048-242758 [place] [address] 03-29-2025 14:41-0400 Body height 172.[address] Malu Rowe MD Work Phone: 0(273)712-532858 [place] [address] 03-29-2025 14:41-0400 Body mass index (BMI) [Ratio] 22.5 kg/m2 Dr. Malu Rowe MD Work Phone: 2(299)192-213158 [place] [address] 03-29-2025 14:41-0400 Body weight 67.[address] Malu Rowe MD Work Phone: 9(756)658-860958 [place] [address] 03-29-2025 14:41-0400 Diastolic blood pressure 79 mm[Hg] Dr. Malu Rowe MD Work Phone: 3(152)210-691558 [place] [address] 03-29-2025 14:41-0400 Heart rate 60 /min Dr. Malu Rowe MD Work Phone: 4(958)924-166858 [place] [address] 03-29-2025 14:41-0400 Respiratory rate 16 /min Dr. Malu Rowe MD Work Phone: 5(059)067-679458 [place] [address] 03-29-2025 14:41-0400 Systolic blood pressure 120 mm[Hg] Dr. Malu Rowe MD Work Phone: 8(502)124-946258 [place] [address] 03-07-2025 14:45-0400 Body temperature 98.3 [degF] Dr. Malu Rowe MD Work Phone: 4(210)216-832258 [place] [address] 03-07-2025 14:45-0400 Diastolic blood pressure 79 mm[Hg] Dr. Malu Rowe MD Work Phone: 2(936)969-192358 [place] [address] 03-07-2025 14:45-0400 Heart rate 60 /min Dr. Maul Rowe MD Work Phone: 3(071)466-479558 [place] [address] 03-07-2025 14:45-0400 Respiratory rate 18 /min Dr. Malu Rowe MD Work Phone: 9(210)181-879458 [place] [address] 03-07-2025 14:45-0400 SaO2% (BldA) [Mass fraction] 100 % Dr. Malu Rowe MD Work Phone: 5(229)133-242558 [place] [address] 03-07-2025 14:45-0400 Systolic blood pressure 156 mm[Hg] Dr. Malu Rowe MD Work Phone: 3(942)795-843158 [place] [address] 03-07-2025 12:00-0400 Body height 172.[address] Malu Rowe MD Work Phone: 0(891)052-816058 [place] [address] 03-07-2025 12:00-0400 Body mass index (BMI) [Ratio] 22.7 kg/m2 Dr. Malu Rowe MD Work Phone: 0(761)435-492658 [place] [address] 03-07-2025 12:00-0400 Body weight 67.[address] Malu Rowe MD Work Phone: 6(112)298-274158 [place] [address] 02-11-2025 09:03-0400 Body height 172.7 cm Moises Pendleton MD Work Phone: [facility] 02-11-2025 09:03-0400 Body mass index (BMI) [Ratio] 23.33 kg/m2 Moises Pendleton MD Work Phone: [facility] 02-11-2025 09:03-0400 Body temperature 98.6 [degF] Moises Pendleton MD Work Phone: [facility] 02-11-2025 09:03-0400 Body weight 69.6 kg Moises Pendleton MD Work Phone: [facility] 02-11-2025 09:03-0400 Diastolic blood pressure 73 mm[Hg] Moises Pendleton MD Work Phone: [facility] 02-11-2025 09:03-0400 Heart rate 66 /min Moises Pendleton MD Work Phone: [facility] 02-11-2025 09:03-0400 Respiratory rate 18 /min Moises Pendleton MD Work Phone: [facility] 02-11-2025 09:03-0400 SaO2% (BldA) [Mass fraction] 99 % Moises Pendleton MD Work Phone: [facility] 02-11-2025 09:03-0400 Systolic blood pressure 133 mm[Hg] Moises Pendleton MD Work Phone: [facility] 10-27-2024 14:16-0400 Body mass index (BMI) [Ratio] 23.33 kg/m2 Malu Rowe MD Work Phone: [facility] 10-27-2024 14:16-0400 Body weight 69.6 kg Malu Rowe MD Work Phone: [facility] 10-27-2024 14:16-0400 Diastolic blood pressure 73 mm[Hg] Malu Rowe MD Work Phone: [facility] 10-27-2024 14:16-0400 Heart rate 67 /min Malu Rowe MD Work Phone: [facility] 10-27-2024 14:16-0400 SaO2% (BldA) [Mass fraction] 98 % Malu Rowe MD Work Phone: [facility] 10-27-2024 14:16-0400 Systolic blood pressure 113 mm[Hg] Malu Rowe MD Work Phone: [facility] 09-27-2024 19:16-0500 Body mass index (BMI) [Ratio] 23.63 kg/m2 Art Donovan MD Work Phone: [facility] 09-27-2024 19:16-0500 Body temperature 98.49 [degF] Art Donovan MD Work Phone: [facility] 09-27-2024 19:16-0500 Body weight 70.5 kg Art Donovan MD Work Phone: [facility] 09-27-2024 19:16-0500 Diastolic blood pressure 62 mm[Hg] Art Donovan MD Work Phone: [facility] 09-27-2024 19:16-0500 Heart rate 67 /min Art Donovan MD Work Phone: [facility] 09-27-2024 19:16-0500 Systolic blood pressure 116 mm[Hg] Art Donovan MD Work Phone: [facility] 07-19-2024 15:32-0500 Diastolic blood pressure 63 mm[Hg] Carlos A Kennedy MD Work Phone: [facility] 07-19-2024 15:32-0500 Heart rate 74 /min Carlos A Kennedy MD Work Phone: [facility] 07-19-2024 15:32-0500 Systolic blood pressure 123 mm[Hg] Carlos A Kennedy MD Work Phone: [facility] 07-07-2024 12:57-0500 Body mass index (BMI) [Ratio] 23.81 kg/m2 Elias Rider MD Work Phone: [facility] 07-07-2024 12:57-0500 Body weight 70.76 kg Elias Rider MD Work Phone: [facility] 07-07-2024 12:57-0500 Diastolic blood pressure 55 mm[Hg] Elias Rider MD Work Phone: [facility] 07-07-2024 12:57-0500 Heart rate 65 /min Elias Rider MD Work Phone: [facility] 07-07-2024 12:57-0500 Systolic blood pressure 105 mm[Hg] Elias Rider MD Work Phone: [facility] 05-12-2024 10:42-0400 Body mass index (BMI) [Ratio] 24.03 kg/m2 Vidal Christie SYSTEM CONFIGURATION SPECIALIST.PSYCHOLOGICAL STRESS EVALUATOR Work Phone: [facility] 05-12-2024 10:42-0400 Body temperature 97.59 [degF] Vidal Christie SYSTEM CONFIGURATION SPECIALIST.PSYCHOLOGICAL STRESS EVALUATOR Work Phone: [facility] 05-12-2024 10:42-0400 Body weight 71.7 kg Vidal Christie SYSTEM CONFIGURATION SPECIALIST.PSYCHOLOGICAL STRESS EVALUATOR Work Phone: [facility] 05-12-2024 10:42-0400 Diastolic blood pressure 68 mm[Hg] Vidal Christie SYSTEM CONFIGURATION SPECIALIST.PSYCHOLOGICAL STRESS EVALUATOR Work Phone: [facility] 05-12-2024 10:42-0400 Heart rate 71 /min Vidal Christie SYSTEM CONFIGURATION SPECIALIST.PSYCHOLOGICAL STRESS EVALUATOR Work Phone: [facility] 05-12-2024 10:42-0400 Respiratory rate 18 /min Vidal Christie SYSTEM CONFIGURATION SPECIALIST.PSYCHOLOGICAL STRESS EVALUATOR Work Phone: [facility] 05-12-2024 10:42-0400 SaO2% (BldA) [Mass fraction] 99 % Vidal Christie SYSTEM CONFIGURATION SPECIALIST.PSYCHOLOGICAL STRESS EVALUATOR Work Phone: [facility] 05-12-2024 10:42-0400 Systolic blood pressure 120 mm[Hg] Vidal Christie SYSTEM CONFIGURATION SPECIALIST.PSYCHOLOGICAL STRESS EVALUATOR Work Phone: [facility] 04-30-2024 11:55-0400 Body height 172.7 cm Christine Greene MD Work Phone: [facility] 04-30-2024 11:55-0400 Body mass index (BMI) [Ratio] 23.54 kg/m2 hCristine Greene MD Work Phone: [facility] 04-30-2024 11:55-0400 Body weight 70.22 kg Christine Greene MD Work Phone: [facility] 04-30-2024 11:55-0400 Diastolic blood pressure 74 mm[Hg] Christine Greene MD Work Phone: [facility] 04-30-2024 11:55-0400 Heart rate 80 /min Christine Greene MD Work Phone: [facility] 04-30-2024 11:55-0400 Respiratory rate 20 /min Christine Greene MD Work Phone: [facility] 04-30-2024 11:55-0400 SaO2% (BldA) [Mass fraction] 96 % Christine Greene MD Work Phone: [facility] 04-30-2024 11:55-0400 Systolic blood pressure 120 mm[Hg] Christine Greene MD Work Phone: [facility] 04-29-2024 10:50-0400 Body mass index (BMI) [Ratio] 23.26 kg/m2 Kesha Boone SYSTEM CONFIGURATION SPECIALIST.OVEN BUILDER Work Phone: [facility] 04-29-2024 10:50-0400 Body weight 69.4 kg Kesha Boone SYSTEM CONFIGURATION SPECIALIST.OVEN BUILDER Work Phone: [facility] 04-29-2024 10:50-0400 Diastolic blood pressure 64 mm[Hg] Kesha Boone SYSTEM CONFIGURATION SPECIALIST.OVEN BUILDER Work Phone: [facility] 04-29-2024 10:50-0400 Heart rate 74 /min Kesha Boone SYSTEM CONFIGURATION SPECIALIST.OVEN BUILDER Work Phone: [facility] 04-29-2024 10:50-0400 Respiratory rate 16 /min Kesha Boone SYSTEM CONFIGURATION SPECIALIST.OVEN BUILDER Work Phone: [facility] 04-29-2024 10:50-0400 Systolic blood pressure 100 mm[Hg] Kesha Boone SYSTEM CONFIGURATION SPECIALIST.OVEN BUILDER Work Phone: [facility] 11-13-2023 10:07-0400 Body temperature 97.3 [degF] Treatment Wstr Work Phone: [facility] 11-13-2023 10:07-0400 Diastolic blood pressure 70 mm[Hg] Treatment Wstr Work Phone: [facility] 11-13-2023 10:07-0400 Heart rate 68 /min Treatment Wstr Work Phone: [facility] 11-13-2023 10:07-0400 SaO2% (BldA) [Mass fraction] 98 % Treatment Wstr Work Phone: [facility] 11-13-2023 10:07-0400 Systolic blood pressure 134 mm[Hg] Treatment Wstr Work Phone: [facility] 10-27-2023 11:09-0400 Body height 172.7 cm Malu Rowe MD Work Phone: [facility] 10-27-2023 11:09-0400 Body mass index (BMI) [Ratio] 23.42 kg/m2 Malu Rowe MD Work Phone: [facility] 10-27-2023 11:09-0400 Body weight 69.85 kg Malu Rowe MD Work Phone: [facility] 10-27-2023 11:09-0400 Diastolic blood pressure 60 mm[Hg] Malu Rowe MD Work Phone: [facility] 10-27-2023 11:09-0400 Heart rate 60 /min Malu Rowe MD Work Phone: [facility] 10-27-2023 11:09-0400 Systolic blood pressure 100 mm[Hg] Malu Rowe MD Work Phone: [facility] 07-11-2023 10:44-0500 Body mass index (BMI) [Ratio] 23.34 kg/m2 Frank Cano PSYCHOLOGICAL STRESS EVALUATOR Work Phone: [facility] 07-11-2023 10:44-0500 Body weight 69.63 kg Frank Cano PSYCHOLOGICAL STRESS EVALUATOR Work Phone: [facility] 07-11-2023 10:44-0500 Diastolic blood pressure 74 mm[Hg] Frank Cano PSYCHOLOGICAL STRESS EVALUATOR Work Phone: [facility] 07-11-2023 10:44-0500 Heart rate 69 /min Frank Cano PSYCHOLOGICAL STRESS EVALUATOR Work Phone: [facility] 07-11-2023 10:44-0500 Systolic blood pressure 111 mm[Hg] Frank Cano PSYCHOLOGICAL STRESS EVALUATOR Work Phone: [facility] 04-25-2023 10:38-0400 Body weight 69.85 kg Kesha Boone SYSTEM CONFIGURATION SPECIALIST.OVEN BUILDER Work Phone: [facility] 04-25-2023 10:38-0400 Diastolic blood pressure 66 mm[Hg] Kesha Boone SYSTEM CONFIGURATION SPECIALIST.OVEN BUILDER Work Phone: [facility] 04-25-2023 10:38-0400 Heart rate 64 /min Kesha Boone SYSTEM CONFIGURATION SPECIALIST.OVEN BUILDER Work Phone: [facility] 04-25-2023 10:38-0400 Respiratory rate 16 /min Kesha Boone SYSTEM CONFIGURATION SPECIALIST.OVEN BUILDER Work Phone: [facility] 04-25-2023 10:38-0400 Systolic blood pressure 118 mm[Hg] Kesha Boone SYSTEM CONFIGURATION SPECIALIST.OVEN BUILDER Work Phone: [facility] 03-25-2023 14:57-0400 Body weight 69.85 kg Kesha Boone SYSTEM CONFIGURATION SPECIALIST.OVEN BUILDER Work Phone: [facility] 03-25-2023 14:57-0400 Diastolic blood pressure 70 mm[Hg] Kesah Boone SYSTEM CONFIGURATION SPECIALIST.OVEN BUILDER Work Phone: [facility] 03-25-2023 14:57-0400 Heart rate 68 /min Kesha Santoss SYSTEM CONFIGURATION SPECIALIST.OVEN BUILDER Work Phone: [facility] 03-25-2023 14:57-0400 Respiratory rate 16 /min Kesha Boone SYSTEM CONFIGURATION SPECIALIST.OVEN BUILDER Work Phone: [facility] 03-25-2023 14:57-0400 SaO2% (BldA) [Mass fraction] 97 % Kesha Boone SYSTEM CONFIGURATION SPECIALIST.OVEN BUILDER Work Phone: [facility] 03-25-2023 14:57-0400 Systolic blood pressure 112 mm[Hg] Kesha Boone SYSTEM CONFIGURATION SPECIALIST.OVEN BUILDER Work Phone: [facility] 03-19-2023 13:22-0400 Body height 172.[address] Malu Rowe Work Phone: [facility] 03-19-2023 13:22-0400 Body mass index (BMI) [Ratio] 23.8 kg/m2 Dr. Malu Rowe Work Phone: [facility] 03-19-2023 13:22-0400 Body weight 71.[address] Malu Rowe Work Phone: [facility] 03-19-2023 13:22-0400 Diastolic blood pressure 68 mm[Hg] Dr. Malu Rowe Work Phone: [facility] 03-19-2023 13:22-0400 Heart rate 61 /min Dr. Malu Rowe Work Phone: [facility] 03-19-2023 13:22-0400 Respiratory rate 18 /min Dr. Malu Rowe Work Phone: [facility] 03-19-2023 13:22-0400 SaO2% (BldA) [Mass fraction] 99 % Dr. Malu Rowe Work Phone: [facility] 03-19-2023 13:22-0400 Systolic blood pressure 105 mm[Hg] Dr. Malu Rowe Work Phone: [facility] 01-21-2023 11:32-0400 Diastolic blood pressure 66 mm[Hg] Carlos A Kennedy MD Work Phone: [facility] 01-21-2023 11:32-0400 Heart rate 65 /min Carlos A Kennedy MD Work Phone: [facility] 01-21-2023 11:32-0400 Systolic blood pressure 127 mm[Hg] Carlos A Kennedy MD Work Phone: [facility] 11-04-2022 11:23-0400 Body height 172.4 cm Massiel Harrell MD Work Phone: [facility] 11-04-2022 11:23-0400 Body mass index (BMI) [Ratio] 23.92 kg/m2 Massiel Harrell MD Work Phone: [facility] 11-04-2022 11:23-0400 Body weight 71.1 kg Massiel Harrell MD Work Phone: [facility] 10-28-2022 10:43-0400 Diastolic blood pressure 70 mm[Hg] Massiel Harrell MD Work Phone: [facility] 10-28-2022 10:43-0400 Heart rate 61 /min Massiel Harrell MD Work Phone: [facility] 10-28-2022 10:43-0400 Systolic blood pressure 122 mm[Hg] Massiel Harrell MD Work Phone: [facility] 08-23-2022 07:59-0500 Body weight 73.03 kg Kesha Boone SYSTEM CONFIGURATION SPECIALIST.OVEN BUILDER Work Phone: [facility] 08-23-2022 07:59-0500 Diastolic blood pressure 62 mm[Hg] Kesha Boone SYSTEM CONFIGURATION SPECIALIST.OVEN BUILDER Work Phone: [facility] 08-23-2022 07:59-0500 Heart rate 69 /min Kesha Boone SYSTEM CONFIGURATION SPECIALIST.OVEN BUILDER Work Phone: [facility] 08-23-2022 07:59-0500 Respiratory rate 16 /min Kesha Boone SYSTEM CONFIGURATION SPECIALIST.OVEN BUILDER Work Phone: [facility] 08-23-2022 07:59-0500 SaO2% (BldA) [Mass fraction] 98 % Kesha Boone SYSTEM CONFIGURATION SPECIALIST.OVEN BUILDER Work Phone: [facility] 08-23-2022 07:59-0500 Systolic blood pressure 102 mm[Hg] Kesha Boone SYSTEM CONFIGURATION SPECIALIST.OVEN BUILDER Work Phone: [facility] 01-30-2022 13:42-0400 Body height 177.8 cm Malu Talampas Work Phone: KP-Vwxphaw-Fyzmniq Work Phone: 01-30-2022 13:42-0400 Body mass index (BMI) [Ratio] 22.67 kg/m2 Malu Talampas Work Phone: TZ-Rtdrqdx-Dibucma Work Phone: 01-30-2022 13:42-0400 Body surface area Derived from formula 1.89 m2 Malu Talampas Work Phone: WJ-Hzhisav-Keapdor Work Phone: 01-30-2022 13:42-0400 Body weight 71.67 kg Malu Talampas Work Phone: DF-Iwhnacd-Picwauz Work Phone: 01-30-2022 13:42-0400 Respiratory rate 18 /min Malu Talampas Work Phone: FQ-Vuprtci-Qapbjfd Work Phone: 12-18-2021 13:54-0400 Diastolic blood pressure 68 mm[Hg] Rolan Howard MD Work Phone: [facility] 12-18-2021 13:54-0400 Heart rate 69 /min Rolan Howard MD Work Phone: [facility] 12-18-2021 13:54-0400 Systolic blood pressure 131 mm[Hg] Rolan Howard MD Work Phone: [facility] 08-21-2021 10:20-0500 Body height 172.[address] Malu Rowe Work Phone: [facility] Work Phone: 08-21-2021 10:20-0500 Body mass index (BMI) [Ratio] 24 kg/m2 Dr. Malu Rowe Work Phone: [facility] Work Phone: 08-21-2021 10:20-0500 Body weight 71.[address] Malu Rowe Work Phone: [facility] Work Phone: 08-21-2021 10:20-0500 Diastolic blood pressure 68 mm[Hg] Dr. Malu Rowe Work Phone: [facility] Work Phone: 08-21-2021 10:20-0500 Heart rate 72 /min Dr. Malu Rowe Work Phone: [facility] Work Phone: 08-21-2021 10:20-0500 Respiratory rate 18 /min Dr. Malu Rowe Work Phone: [facility] Work Phone: 08-21-2021 10:20-0500 SaO2% (BldA) [Mass fraction] 100 % Dr. Malu Rowe Work Phone: [facility] Work Phone: 08-21-2021 10:20-0500 Systolic blood pressure 110 mm[Hg] Dr. Malu Rowe Work Phone: [facility] Work Phone: 05-09-2021 15:00-0400 Body height 177.8 cm Elias Rider II, MD Work Phone: [facility] Work Phone: 05-09-2021 15:00-0400 Body mass index (BMI) [Ratio] 22.81 kg/m2 Elias Rider II, MD Work Phone: DJ-Yxvflcl-Yqptelr Work Phone: 05-09-2021 15:00-0400 Body surface area Derived from formula 1.89 m2 Elias Rider II, MD Work Phone: CN-Duvytys-Bumekxs Work Phone: 05-09-2021 15:00-0400 Body weight 72.12 kg Elias Rider II, MD Work Phone: WH-Hqujsgp-Baseutl Work Phone: 05-09-2021 15:00-0400 Diastolic blood pressure 73 mm[Hg] Elias Rider II, MD Work Phone: DY-Bjgxmyg-Bbisueq Work Phone: 05-09-2021 15:00-0400 Heart rate 74 /min Elias Rider II, MD Work Phone: YA-Zukhdfw-Yyojqbn Work Phone: 05-09-2021 15:00-0400 Systolic blood pressure 133 mm[Hg] Elias Rider II, MD Work Phone: ZD-Ujbrvzz-Yklrmit Work Phone: 01-01-2020 13:29-0400 BP Diastolic 88 mm[Hg] [facility] 01-01-2020 13:29-0400 BP Systolic 170 mm[Hg] [facility] 01-01-2020 13:29-0400 Pulse (Heart Rate) 75 /min [facility] 01-01-2020 13:29-0400 Pulse Oximetry 95 % [facility] 01-01-2020 13:29-0400 Respiratory Rate 16 /min [facility] 01-01-2020 12:18-0400 BMI (Body Mass Index) 25.09 kg/m2 [facility] 01-01-2020 12:18-0400 Body weight 74.84 kg [facility] 01-01-2020 12:18-0400 Height 172.7 cm [facility] 01-01-2020 12:17-0400 Body Temperature 99.39 [degF] Samson Maurer [facility] 12-27-2019 10:30-0400 BP Diastolic 95 mm[Hg] Arthur Carcamo [facility] 12-27-2019 10:30-0400 BP Systolic 170 mm[Hg] [facility] 12-27-2019 10:30-0400 Pulse (Heart Rate) 72 /min [facility] 12-27-2019 10:30-0400 Pulse Oximetry 99 % Arthur Carcamo [facility] 12-27-2019 10:30-0400 Respiratory Rate 18 /min [facility] 12-27-2019 09:36-0400 BMI (Body Mass Index) 25.09 kg/m2 [facility] 12-27-2019 09:36-0400 Body Temperature 99 [degF] Arthur Carcamo [facility] 12-27-2019 09:36-0400 Body weight 74.84 kg [facility] 12-27-2019 09:36-0400 Height 172.7 cm [facility] 12-08-2019 16:37-0400 BMI (Body Mass Index) 23.82 kg/m2 Elias Rider II ON-Onjclwx-Bgpxatx Work Phone: 12-08-2019 16:37-0400 Body weight 75.3 kg Elias Briceñok II YE-Lprrjzm-Yomrt nd Work Phone: 12-08-2019 16:37-0400 BP Diastolic 85 mm[Hg] Elias Briceñok II XZ-Oftdult-Reykl nd Work Phone: 12-08-2019 16:37-0400 BP Systolic 126 mm[Hg] Elias Rider II OG-Vbmbgev-Rwecd nd Work Phone: 12-08-2019 16:37-0400 BSA (Body Surface Area) 1.93 m2 Elias Rider II BF-Sagzxzh-Mwaccyy Work Phone: 12-08-2019 16:37-0400 Height 177.8 cm Elias Rider II YE-Xgyfngm-Lnzti nd Work Phone: 12-08-2019 16:37-0400 Pulse (Heart Rate) 76 /min Elias Rider II PO-Zyinnwm-Sz hland Work Phone: Encounters Encounter Date Encounter Type Care Provider Facility Start: 06-10-2025 ambulatory Lily Acosta Facility:[facility] Start: 06-07-2025 ambulatory Elias Isaacs AUTOMATIC CHIEF Facility :[facility] Start: 06-06-2025 Encounter for other preprocedural examination Elias Eubanks Shital AUTOMATIC CHIEF [facility] Start: 06-03-2025 ambulatory Lily Acosta Facility:[facility] Start: 06-02-2025 Encounter for preprocedural cardiovascular examination Elias Raimundo Isaacs AUTOMATIC CHIEF [facility] Start: 06-02-2025 End: 06-02-2025 ambulatory Elias Isaacs AUTOMATIC CHIEF Facility:[facility] Start: 05-27-2025 End: 05-27-2025 ambulatory MALU D TALAMPAS Facility:[facility] Start: 05-27-2025 Encounter for other preprocedural examination [facility] Start: 05-20-2025 End: 05-20-[address] Malu Rowe MD Work Phone: -[facility] Start: 05-20-2025 End: 05-20-2025 Patient encounter procedure Karla Lily JOCELYNN -[facility] Work Phone: Start: 05-16-2025 End: 05-16-2025 ambulatory MALU D TALAMPAS Facility:[facility] Start: 04-29-2025 End: 04-29-2025 ambulatory MALU D TALAMPAS Facility:[facility] Start: 04-29-2025 End: 04-29-2025 ambulatory MALU D TALAMPAS Facility:[facility] Start: 04-29-2025 Patient encounter procedure [facility] Start: 03-29-2025 End: 03-29-[address] Sidney Motta MD -[place] [facility] Work Phone: Start: 03-29-2025 End: 03-29-[address] Malu Rowe MD Work Phone: -[facility] Start: 03-14-2025 End: 03-14-2025 Patient encounter procedure Massiel Harrell MD Work Phone: Ophthalmology Comment on above: Primary open angle g laucoma (POAG) of right eye, moderate stage (Primary Dx); Primary open angle glaucoma (POAG) of left eye, moderate stage; Optic cupping of both eyes; Homonymous hemianopsia, right Start: 03-14-2025 End: 03-14-2025 ambulatory MALU ROWE Facility:[facility] Start: 03-07-2025 End: 03-07-2025 Emergency department patient visit Dr. Malu Rowe MD Work Phone: -Emergency Department Work Phone: Start: 02-11-2025 End: 02-11-2025 ambulatory MOISES PENDLETON Facility:[facility] Start: 02-11-2025 End: 02-11-2025 Patient encounter procedure Moises Pendleton MD Work Phone: Pulmonary Medicine Comment on above: Centrilobular emphys mary ann (HCC) (Primary Dx); Nicotine dependence, cigarettes, uncomplicated; Pulmonary nodule Start: 01-26-2025 End: 01-26-2025 Telephone encounter Malu Rowe MD Work Phone: Internal Medicine [place] Comment on above: Medication Request Start: 01-12-2025 End: 01-12-2025 Office outpatient visit 25 minutes Elias Rider MD Work Phone: [facility] Comment on above: Erectile dysfunction , unspecified erectile dysfunction type; Nocturia; High prostate specific antigen (PSA); Benign prostatic hyperplasia with lower urinary tract symptoms, symptom details unspecified Start: 01-12-2025 End: 01-12-2025 ambulatory [facility] Ambulatory Start: 01-04-2025 End: 01-04-2025 Telephone encounter Carolin Fang MD Work Phone: C[facility]brovascular Center Comment on above: Results (CT scan res ults) Bilateral carotid ar radha stenosis (Primary Dx) Start: 12-31-2024 End: 12-31-2024 Subsequent hospital visit by physician [facility] (I-Stat) Work Phone: Cat Scan Comment on above: 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 EDILBERTO Rider MD -Laboratory Work Phone: Start: 12-30-2024 End: 12-30-2024 ambulatory Elias Rider II Facility:[facility] Start: 12-21-2024 End: 12-21-2024 [facility] Start: 11-05-2024 End: 11-24-2024 Telephone encounter Neurology Provider Neurology Start: 11-01-2024 End: 11-01-2024 ambulatory MALU ROWE Facility:[facility] Start: 11-01-2024 End: 11-01-2024 Subsequent hospital visit by physician [facility] (I-Stat) Work Phone: Cat Scan Comment on above: Abnormality of lung on CXR [R91.8] Start: 10-31-2024 End: 11-05-2024 Follow-up encounter Malu Rowe MD Work Phone: Internal Medicine [place] Comment on above: Results (CXR) Results (labwork) Start: 10-29-2024 End: 11-01-2024 Telephone encounter Malu Rowe MD Work Phone: Family Medicine [place] Start: 10-27-2024 End: 10-27-2024 Subsequent hospital visit by physician Xr [facility] Work Phone: Radiology Comment on above: Chronic cough [R05.3 ] Start: 10-27-2024 End: 10-27-2024 ambulatory MALU ROWE Facility:[facility] Start: 10-27-2024 End: 10-27-2024 Office outpatient visit 25 minutes Malu Rowe MD Work Phone: Internal Medicine [place] Comment on above: Chronic cough (Prima ry Dx); Weight loss; Vitamin D deficiency; Smoker unmotivated to quit Start: 09-28-2024 End: 09-28-2024 Follow-up encounter Art Donovan MD Work Phone: [facility] Medicine [place] Start: 09-27-2024 End: 09-27-2024 ambulatory ART DONOVAN Facility:[facility] Start: 09-27-2024 End: 09-27-2024 Office outpatient visit 15 minutes Art Donovan MD Work Phone: [facility] [place] Comment on above: Acute cough (Primary Dx); Chronic obstructive pulmonary disease, unspecified COPD type (HCC) Start: 09-13-2024 End: 09-13-2024 ambulatory MASSIEL HARRELL Facility:[facility] Start: 09-13-2024 End: 09-13-2024 Patient encounter procedure Massiel Harrell MD Work Phone: Ophthalmology Comment on above: Primary open angle g laucoma (POAG) of right eye, moderate stage (Primary Dx); Primary open angle glaucoma (POAG) of left eye, moderate stage; Optic cupping of both eyes; Homonymous hemianopsia, right; Essential hypertension; H/O ischemic left MCA stroke Start: 07-19-2024 End: 07-19-2024 Patient encounter procedure Carlos A Kennedy MD Work Phone: Vascular Surg Dept Comment on above: PAD (peripheral jenelle ry disease) (HCC) (Primary Dx); Tobacco abuse; Carotid aneurysm, left (HCC) Start: 07-19-2024 End: 07-19-2024 ambulatory MALU ROWE Facility:[facility] Start: 07-19-2024 End: 07-19-2024 ambulatory MALU ROWE Facility:[facility] Start: 07-07-2024 End: 07-07-2024 Office outpatient visit 25 minutes Elias Rider MD Work Phone: [facility] Comment on above: Erectile dysfunction , unspecified erectile dysfunction type; Benign prostatic hyperplasia with lower urinary tract symptoms, symptom details unspecified; Urinary frequency; Nocturia Start: 07-07-2024 End: 07-07-2024 ambulatory [facility] Ambulatory Start: 05-12-2024 End: 05-12-2024 Office outpatient visit 25 minutes Vidal Christie APRN.PSYCHOLOGICAL STRESS EVALUATOR Work Phone: [facility] Comment on above: Viral illness (Prima ry Dx); COPD with exacerbation (HCC) Start: 05-04-2024 End: 05-04-2024 Telephone encounter Kesha Boone APRN.OVEN BUILDER Work Phone: Internal Medicine [place] Comment on above: Results Start: 04-30-2024 End: 04-30-2024 Telephone encounter Kesha Boone APRN.OVEN BUILDER Work Phone: [facility] [place] Comment on above: Results Start: 04-30-2024 End: 04-30-2024 Patient encounter procedure Christine Greene MD Work Phone: Endocrinology Comment on above: Elevated alkaline ph osphatase level [R74.8] (Primary Dx); Abnormal weight loss [R63.4] Start: 04-29-2024 End: 04-30-2024 Telephone encounter Kesha Boone APRN.OVEN BUILDER Work Phone: [facility] Medicine [place] Comment on above: Recheck (Follow up f rom visit please let him know that on review of his chart it looks like he should be following up with his manager equity in June. Schedule if willing. Also looks like) Start: 04-29-2024 End: 04-29-2024 Office outpatient visit 25 minutes Kesha Boone APRN.OVEN BUILDER Work Phone: Internal Medicine [place] Comment on above: Essential hypertensi on (Primary Dx); Anxiety and depression; Mixed hyperlipidemia; Aortoiliac occlusive disease (HCC); Adenocarcinoma of prostate (HCC); Paget's bone disease; Weight loss; Vitamin D deficiency; Elevated PSA, less than 10 ng/ml; Colon cancer screening; Screening for colon cancer; Encounter for immunization; Chronic obstructive pulmonary disease, unspecified COPD type (HCC); Paget disease of bone; Memory difficulties Start: 04-01-2024 End: 04-01-2024 Orders Only Carlos A Kennedy MD Work Phone: Vascular Surg Dept Comment on above: S/P carotid endarter ectomy (Primary Dx) Start: 03-30-2024 End: 03-30-2024 Telephone encounter Malu Rowe MD Work Phone: [address] [place] [address] Comment on above: Appointment Start: 03-29-2024 End: 03-29-2024 Patient encounter procedure Msasiel Harrell MD Work Phone: Ophthalmology Comment on above: Primary open angle g laucoma (POAG) of right eye, moderate stage (Primary Dx); Primary open angle glaucoma (POAG) of left eye, moderate stage; Optic cupping of both eyes; Homonymous hemianopsia, right; Essential hypertension; H/O ischemic left MCA stroke Start: 03-10-2024 End: 03-10-2024 ambulatory [facility] Ambulatory Start: 12-01-2023 Telephone encounter Financial Navigator Christiano Work Phone: Financial Services Comment on above: Benefits Investigati on Start: 11-13-2023 End: 11-13-2023 ambulatory Treatment Rm 12 Christiano [facility] Work Phone: Hematology/Oncology Comment on above: Paget's bone disease (Primary Dx) Start: 11-12-2023 Orders Only Christine Greene MD Work Phone: Endocrinology Comment on above: Elevated alkaline ph osphatase level (Primary Dx) Start: 11-04-2023 Orders Only Christine Greene MD Work Phone: Endocrinology Start: 10-27-2023 End: 10-27-2023 Office outpatient visit 25 minutes Malu Rowe MD Work Phone: [facility] [place] Comment on above: Essential hypertensi on (Primary Dx); Elevated alkaline phosphatase level; Vitamin D deficiency; Recurrent depressive disorder, in remission (HCC); Paget disease of bone; Encounter for immunization Start: 09-19-2023 Refill Malu farr MD Work Phone: Internal Medicine [place] Comment on above: Refill Request Start: 09-17-2023 End: 09-17-2023 ambulatory [facility] Work Phone: Start: 09-17-2023 End: 09-17-2023 Patient encounter procedure [facility]-Laboratory Work Phone: Start: 07-17-2023 ambulatory MALU ROWE [facility] Ambulatory Start: 07-11-2023 End: 07-11-2023 ambulatory FRANK CANO [facility] Ambulatory Start: 07-11-2023 End: 07-11-2023 Patient encounter procedure Frank Cano [facility] Work Phone: [facility] [place] Comment on above: Paget's bone disease Start: 05-09-2023 Telephone encounter Malu santoyo MD Work Phone: [facility] [place] Comment on above: Question Start: 05-02-2023 Telephone encounter Kesha diaz APRN.OVEN BUILDER Work Phone: Internal Medicine [place] Comment on above: Results Start: 05-01-2023 End: 05-01-2023 Subsequent hospital visit by physician [facility] 1 Work Phone: Radiology Comment on above: Elevated alkaline ph osphatase level [R74.8] Start: 04-29-2023 End: 04-29-2023 Transcribe Orders Homero Castillo [facility] Comment on above: Paget's bone disease (Primary Dx) Homonymous hemianops ia, right (Primary Dx); Primary open angle glaucoma (POAG) of right eye, moderate stage; Primary open angle glaucoma (POAG) of left eye, moderate stage; Status post cataract extraction and insertion of intraocular lens of right eye; Status post cataract extraction and insertion of intraocular lens of left eye; H/O ischemic left MCA stroke; Aneurysm of ophthalmic artery; Essential hypertension Start: 04-25-2023 End: 04-25-2023 Office outpatient visit 25 minutes Kesha Boone APRN.OVEN BUILDER Work Phone: Internal Medicine [place] Comment on above: Weight loss (Primary Dx); Encounter for immunization; Elevated alkaline phosphatase level; Adenocarcinoma of prostate (HCC); Memory difficulties Start: 04-23-2023 End: 04-23-[address] Malu Rowe Work Phone: [facility] Work Phone: Start: 04-23-2023 End: 04-23-[address] Malu Rowe Work Phone: [facility]-Cat Scan, [facility] Work Phone: Start: 04-17-2023 Telephone encounter Janeen guzmán SYSTEM CONFIGURATION SPECIALIST.PSYCHOLOGICAL STRESS EVALUATOR Work Phone: Endocrinology Comment on above: Appointment Start: 04-02-2023 ambulatory Malu Rowe Facility: [id number] Start: 04-02-2023 End: 04-02-[address] Malu Rowe Work Phone: [facility]-Laboratory Work Phone: Start: 03-27-2023 Telephone encounter Kesha diaz SYSTEM CONFIGURATION SPECIALIST.OVEN BUILDER Work Phone: Internal Medicine [place] Comment on above: Results Start: 03-25-2023 End: 03-25-2023 Subsequent hospital visit by physician Xr [facility] Work Phone: Radiology Comment on above: Weight loss [R63.4] Start: 03-25-2023 End: 03-25-2023 Office outpatient visit 25 minutes Kesha Boone APRN.OVEN BUILDER Work Phone: Internal Medicine [place] Comment on above: Memory difficulties (Primary Dx); Adenocarcinoma of prostate (HCC); Recurrent depressive disorder, in remission (HCC); Subdural hematoma (HCC); Need for shingles vaccine; Screening for colon cancer; Encounter for immunization; Weight loss; Vitamin D deficiency; Encounter for screening for diabetes mellitus Start: 03-19-2023 End: 03-19-[address] Malu Rowe Work Phone: [facility] Work Phone: Start: 02-28-2023 ambulatory Cele Ell[place] (Ps s) Jaki [facility] [place] Comment on above: Population Health Na vigation Outreach ([employer] Low HCC) Start: 01-21-2023 ambulatory Kellie Montalvo koko [place]ot [facility] [place] Comment on above: Population Health Na vigation Outreach ([employer] Care Gaps ) Bilateral carotid ar radha stenosis (Primary Dx) Start: 01-21-2023 End: 01-21-2023 Patient encounter procedure Carlos A Kennedy MD Work Phone: Vascular Surg Dept Comment on above: S/P carotid endarter ectomy (Primary Dx); Aortoiliac occlusive disease (HCC); H/O ischemic left MCA stroke; Aneurysm of ophthalmic artery Start: 01-21-2023 End: 01-21-2023 Subsequent hospital visit by physician [facility] F30 (I-Stat) Work Phone: Radiology Comment on above: Vasculopathy [I99.9] Start: 01-18-2023 AUDIT Malu Rowe Work Phone: TP-Tcriaqz-Jmsjszyh HC 232 DO Work Phone: Start: 01-02-2023 AUDIT Malu Talampdione Work Phone: [facility] 232 DO Work Phone: Start: 12-04-2022 Telephone encounter Rolan Jimenez se, MD Work Phone: Vascular Surg Dept Comment on above: Appointment Start: 11-18-2022 Refill Kesha Boone APRN.OVEN BUILDER Work Phone: Internal Medicine [place] Comment on above: Refill Request Start: 11-18-2022 AUDIT Malu Talampdione Work Phone: TD-Bjgolgx-Fehksmzp HC 232 DO Work Phone: Start: 11-09-2022 End: 11-09-2022 Patient encounter procedure Massiel Harrell MD Work Phone: Ophthalmology Comment on above: Primary open angle g laucoma (POAG) of right eye, moderate stage (Primary Dx); Status post cataract extraction and insertion of intraocular lens of right eye; Primary open angle glaucoma (POAG) of left eye, moderate stage; Status post cataract extraction and insertion of intraocular lens of left eye Start: 11-08-2022 End: 11-08-2022 Patient encounter procedure Massiel Harrell MD Work Phone: Ophthalmology Comment on above: Status post cataract extraction and insertion of intraocular lens of left eye (Primary Dx); Primary open angle glaucoma (POAG) of left eye, moderate stage; Primary open angle glaucoma (POAG) of right eye, moderate stage; Status post cataract extraction and insertion of intraocular lens of right eye Start: 11-07-2022 End: 11-07-[address] Massiel Harrell Facility:[id number] Start: 11-07-2022 End: 11-07-2022 Subsequent hospital visit by physician Massiel Harrell MD Work Phone: [facility] Comment on above: Primary open-angle g laucoma, left eye, moderate stage; Combined forms of age-related cataract, left eye; Essential (primary) hypertension; Peripheral vascular disease, unspecified (CMS/HCC); Benign prostatic hyperplasia without lower urinary tract symptoms; Personal history of transient ischemic attack (TIA), and cerebral infarction without residual deficits; Anxiety disorder, unspecified; Depression, unspecified; terminal carman (current) use of 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; Tobacco use Start: 10-28-2022 End: 10-28-2022 Patient encounter procedure Massiel Harrell MD Work Phone: Ophthalmology Comment on above: Primary open angle g laucoma (POAG) of left eye, moderate stage (Primary Dx); Combined forms of age-related cataract of left eye; Primary open angle glaucoma (POAG) of right eye, moderate stage; Status post glaucoma surgery; Status post cataract extraction and insertion of intraocular lens of right eye; Optic cupping of both eyes; Homonymous hemianopsia, right; Essential hypertension; Hypercholesteremia Start: 10-25-2022 Refill Kesha Boone APRN.CNS Work Phone: Internal Medicine [place] Comment on above: Refill Request Start: 09-30-2022 End: 09-30-2022 Patient encounter procedure Massiel Harrlel MD Work Phone: Ophthalmology Comment on above: Status post glaucoma surgery (Primary Dx); Status post cataract extraction and insertion of intraocular lens of right eye; Primary open angle glaucoma (POAG) of right eye, moderate stage; Primary open angle glaucoma (POAG) of left eye, moderate stage; Combined forms of age-related cataract of left eye Start: 09-26-2022 End: 09-26-2022 ambulatory Malu Yusherrydione Facility:[id number] Start: 08-23-2022 End: 08-23-2022 Office outpatient visit 25 minutes Kesha Boone APRN.CNS Work Phone: Internal Medicine [place] Comment on above: Preop exam for inter nal medicine (Primary Dx); Ocular hypertension, bilateral; Optic cupping of both eyes; Combined forms of age-related cataract of both eyes; Homonymous hemianopsia, right; H/O ischemic left MCA stroke; S/P carotid endarterectomy Start: 08-23-2022 End: 08-23-2022 Patient encounter status Kesha Boone APRN.CNS Work Phone: Internal Medicine [place] Start: 07-19-2022 Orders Only Rolan Chiang Work Phone: Vascular Surg Dept Comment on above: Vasculopathy (Primar y Dx); Peripheral arterial disease (HCC) Start: 07-08-2022 Telephone encounter Irlanda villafana APRN.PSYCHOLOGICAL STRESS EVALUATOR Work Phone: Internal Medicine [place] Comment on above: Results Start: 06-14-2022 Telephone encounter Yolanda MERCER Comment on above: Bleeding/Bruising Start: 05-29-2022 End: 05-29-2022 Patient encounter procedure Anthony Watson MD Work Phone: Ophthalmology Comment on above: Homonymous hemianops ia, right (Primary Dx); Optic cupping of both eyes; Dry eye syndrome of both eyes; Primary open angle glaucoma (POAG) of both eyes, mild stage; Meibomian gland dysfunction (MGD) of upper and lower lids of both eyes; Combined forms of age-related cataract of both eyes Start: 05-27-2022 Office outpatient vi sit 15 minutes Malu Rowe Work Phone: NG-Ctccuzt-Hurtvjok [facility] 232 DO Work Phone: Start: 05-27-2022 ambulatory [facility] Facility: [id number] Start: 05-20-2022 End: 05-20-2022 ambulatory [facility] Work Phone: Start: 05-20-2022 End: 05-20-2022 Patient encounter procedure [facility] Start: 05-15-2022 End: 05-15-2022 Patient encounter procedure Anthony Watson MD Work Phone: Ophthalmology Comment on above: Homonymous hemianops ia, right (Primary Dx); Optic cupping of both eyes; Dry eye syndrome of both eyes Start: 05-07-2022 AUDIT Malu Rowe Work Phone: AF-Nbetfpm-Qguhcar Work Phone: Start: 03-04-2022 Office outpatient vi sit 15 minutes Malu Rowe Work Phone: QX-Tfzgxpi-Usmqvoq Work Phone: Start: 02-26-2022 Chart Update Malu Rowe Work Phone: NY-Thgooqk-Dopnjdd Work Phone: Start: 02-26-2022 ambulatory Malu Rowe Facility: [id number] Start: 02-22-2022 End: 02-22-2022 Nursing evaluation of patient and report Mi Nurse Work Phone: Family Medicine [place] Comment on above: Need for vaccination (Primary Dx) Start: 01-14-2022 ambulatory Tammy Thompson MA [facility] Comment on above: Population Health Na vigation Outreach ([facility] ) Start: 12-26-2021 End: 12-26-2021 Patient encounter procedure Anthony Watson MD Work Phone: Ophthalmology Comment on above: 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, mild stage (Primary Dx); Homonymous hemianopsia, right; Optic cupping of both eyes; Dry eye syndrome of both eyes; Meibomian gland dysfunction (MGD) of upper and lower lids of both eyes; Combined forms of age-related cataract of both eyes Start: 12-18-2021 End: 12-18-2021 Orders Only Rolan Howard MD Work Phone: Vascular Surg Dept Comment on above: Bilateral carotid ar radha stenosis (Primary Dx) Bilateral carotid ar radha stenosis (Primary Dx); Critical lower limb ischemia (HCC) Start: 11-21-2021 AUDIT Elias Chiang Work Phone: BV-Crbnivq-Djkkset Work Phone: Start: 11-16-2021 End: 11-16-[address] Malu Rowe Work Phone: [facility] Start: 11-06-2021 End: 11-06-2021 Patient encounter procedure Anthony Watson MD Work Phone: Ophthalmology Comment on above: Homonymous hemianops ia, right (Primary Dx); Dry eye syndrome of both eyes; Meibomian gland dysfunction (MGD) of upper and lower lids of both eyes; Optic cupping of both eyes; Combined forms of age-related cataract of both eyes; Subdural hematoma (HCC) Start: 10-25-2021 Telephone encounter Kesha Mcclellan emily HUANGOVEN BUILDER Work Phone: Internal Medicine [place] Comment on above: Results, Lab (FOBT) Start: 08-21-2021 End: 08-21-[address] Malu Rowe Work Phone: [facility] Start: 05-09-2021 Office outpatient vi sit 25 minutes Elias Rider II, MD Work Phone: PC-Dzjvvec-Wxspfus Work Phone: Start: 10-02-2020 Office outpatient vi sit 25 minutes Elias Rider II, MD Work Phone: FI-Mpyqfic-Gyvumbo Work Phone: Start: 02-22-[address] Rakel Rowe Work Phone: [facility] Start: 01-01-2020 End: 01-01-2020 Emergency department patient visit Samson Maurer Work Phone: [facility] Emergency Department Start: 12-27-2019 End: 12-27-2019 Emergency department patient visit ARTHUR CARCAMO [facility] Start: 12-27-2019 End: 12-27-2019 Emergency department patient visit Arthur Carcamo Work Phone: [facility] Emergency Department Comment on above: Peripheral edema (Pr imary Dx) Start: 12-08-2019 Patient encounter procedure Elias Rider II DD-Wqpnmst-Nryetsy Work Phone: Start: 10-11-2019 Patient encounter procedure Elias Rider II HM-Fayhkkw-Oblpsdg Work Phone: Procedures Date Procedure Procedure Detail Performing Clinician Start: 03-14-2025 Computerized ophthal lauren imaging optic nerve Massiel Harrell MD Work Phone: Start: 03-07-2025 CT angiography of head Dr. Malu Rowe MD Work Phone: Start: 03-07-[address] Malu Rowe MD Work Phone: Start: 12-31-2024 Ct angiography head w/contrast/noncontrast Carolin Fang MD Work Phone: Start: 12-31-2024 Ct angiography neck w/contrast/noncontrast Carolin Fang MD Work Phone: Start: 12-30-2024 Assay of prostate specific antigen total Dr. Malu Rowe MD Work Phone: Comment on above: This test was perfor med using the [employer] tPSA method. Measured values of a patient sample can vary depending on the testing procedure used. PSA values determined on patient samples by different testing procedures cannot be used interchangeably. If there is a change in PSA assays while monitoring therapy, sequential testing should be performed to confirm baseline values. Start: 09-13-2024 Visual field xm uni/ bi w/interp extended exam Masisel Harrell MD Work Phone: Start: 04-29-2024 PFIZER-BIONTECH COVI D-19 VACCINE AGE 12+ YR (COMIRNATY) Kesha Boone SYSTEM CONFIGURATION SPECIALIST.OVEN BUILDER Work Phone: Start: 04-29-2024 Lipid 1996 panel - S chau or Plasma Kesha Boone SYSTEM CONFIGURATION SPECIALIST.OVEN BUILDER Work Phone: Start: 03-29-2024 Computerized ophthal lauren imaging optic nerve Massiel Harrell MD Work Phone: Start: 10-27-2023 PFIZER-BIONTECH COVI D-19 VACCINE ( SEASON) AGE 12+ YR Malu Rowe MD Work Phone: Start: 05-01-2023 Us abdominal real ti me w/image limited Kesha Boone SYSTEM CONFIGURATION SPECIALIST.OVEN BUILDER Work Phone: Start: 04-29-2023 End: 04-29-2023 Visual field xm uni/bi w/interp extended exam Massiel Harrell MD Work Phone: Start: 04-23-2023 Computed tomography of abdomen and pelvis with contrast Dr. Malu Rowe Work Phone: Start: 03-25-2023 Radiologic exam ches t 2 views Kesha Boone SYSTEM CONFIGURATION SPECIALIST.OVEN BUILDER Work Phone: Start: 01-21-2023 Ct angiography head w/contrast/noncontrast Rolan Howard MD Work Phone: Start: 01-21-2023 Ct angiography neck w/contrast/noncontrast Rolan Howard MD Work Phone: Start: 01-21-2023 Creatinine [Mass/vol ume] in Serum or Plasma [facility] Provider Start: 11-08-2022 Fundus photography w/interpretation & report Massiel Harrell MD Work Phone: Start: 08-23-2022 Ecg routine ecg w/le ast 12 lds i&r only [facility] Provider Start: 06-18-2022 Lipid 1996 panel - S chau or Plasma Janeen Wolf SYSTEM CONFIGURATION SPECIALIST.PSYCHOLOGICAL STRESS EVALUATOR Work Phone: Start: 05-15-2022 Computerized ophthal lauren imaging optic nerve Anthony Watson MD Work Phone: Start: 02-22-2022 PFIZER-BIONTECH COVI D-19 VACCINE, AGE 12+ YR (PECK TOP) Malu Rowe MD Work Phone: Start: 12-26-2021 Computerized ophthal lauren imaging optic nerve Anthony Watson MD Work Phone: Start: 11-06-2021 Visual field xm uni/ bi w/interp extended exam Anthony Watson MD Work Phone: Start: 03-25-2020 History of carotid endarterectomy S/P carotid endarterectomy Kesha Boone GOLDIE.OVEN BUILDER Work Phone: Start: 01-01-2020 X-ray of right foot Cristiano Ortega Work Phone: Start: 01-01-2020 Complete blood count with white cell differential, automated Antelmo Ortega Work Phone: Start: 01-01-2020 Creatinine blood Antelmo Ortega Work Phone: Start: 01-01-2020 Sedimentation rate r bc automated Antelmo Ortega Work Phone: Start: 12-27-2019 Radiologic exam ches t single view Arthur Carcamo Work Phone: Start: 12-27-2019 LIGHT BLUE TOP Arthur C arroll Work Phone: Start: 12-27-2019 LIGHT GREEN TOP Arthur Carcamo Work Phone: Start: 12-27-2019 RAINBOW DRAW Arthur Car roll Work Phone: Start: 12-27-2019 Basic metabolic 1998 panel - Serum or Plasma Arthur Carcamo Work Phone: Start: 12-27-2019 Complete blood count with white cell differential, automated Arthur Carcamo Work Phone: Start: 12-27-2019 Complete blood count with white cell differential, manual Arthur Carcamo Work Phone: Start: 12-27-2019 Natriuretic peptide. B prohormone N-Terminal [Mass/volume] in Serum or Plasma Arthur Carcamo Work Phone: Start: 12-27-2019 Troponin measurement Da Carcamo Work Phone: Start: 12-08-2019 Assay of prostate specific antigen total Elias Rider II Start: 10-11-2019 Assay of prostate specific antigen total Elias Rider II Start: 10-11-2019 Assay of testosteron e total Elias Rider II Biopsy of prostate Elias Rider II Elbow joint operations Elias Rider II Excision of cyst Elias Rider I I H/O: surgery Status post glau coma surgery Massiel Harrell MD Work Phone: H/O: surgery Status post glau coma surgery Massiel Harrell MD Work Phone: History of carotid endarterectomy S/P carotid endarterectomy Kesha Boone APRN.OVEN BUILDER Work Phone: History of carotid endarterectomy S/P carotid endarterectomy Carlos A Kennedy MD Work Phone: History of carotid endarterectomy S/P carotid endarterectomy Carlos A Kennedy MD Work Phone: Operative procedure on knee Elias Rider II Patch repair of marques tid artery Elias Rider II Plan of Treatment Date Care Activity Detail Author Start: 04-29-2029 Lipid panel Lipid Screening [facility] Start: 03-25-2028 PROSTATE CANCER SCREENING DISCUSSION PROSTATE CANCER SCREENING DISCUSSION [facility] Start: 10-28-2027 Diabetes Screening Diabetes Screenin [facility] Start: 06-18-2027 Lipid 1996 panel - Serum or Plasma Lipid Screening [facility] Start: 06-18-2027 Lipid panel Lipid Screening [facility] Start: 06-18-2027 LIPID SCREEN LIPID SCREEN [facility] Start: 04-29-2027 Diabetes Screening Diabetes Screenin g [facility] Start: 11-12-2026 Diabetes Screening Diabetes Screenin g [facility] Start: 08-30-2026 LIPID SCREEN LIPID SCREEN [facility] Start: 03-25-2026 DIABETES SCREEN DIABETES SCREEN [facility] Start: 03-25-2026 Diabetes Screening Diabetes Screenin g [facility] Start: 12-21-2025 BP Controlled (<130/80) BP Con trolled (<130/80) [facility] Start: 12-14-2025 DTaP/Tdap/Td Vaccine s (2 - Td or Tdap) DTaP/Tdap/Td Vaccines (2 - Td or Tdap) [facility] Start: 12-14-2025 Tetanus vaccination Tetanus: Every 1 0yrs [facility] Start: 12-14-2025 Urine microalbumin profile [facility] Start: 10-31-2025 End: 10-31-2025 Patient encounter procedure 10/31/2025 1:40 PM EDT Office Visit Internal Medicine [place] [address] [place], [place] [id number] Malu Rowe MD [address] [place], [place] [id number] 6 month follow up Internal Medicine [place] Comment on above: 6 month follow up Start: 10-27-2025 Annual PCP Team Organic Preparation Technician dayanna Disease Visit Annual PCP Team Chronic Disease Visit [facility] Start: 10-27-2025 BP Controlled (<130/80) BP Con trolled (<130/80) [facility] Start: 09-27-2025 Annual PCP Team Organic Preparation Technician dayanna Disease Visit Annual PCP Team Chronic Disease Visit [facility] Start: 09-27-2025 BP Controlled (<130/80) BP Con trolled (<130/80) [facility] Start: 09-21-2025 End: 09-21-2025 Patient encounter procedure 09/21/2025 2:30 PM EST Office [place] [address] [place] [address] [facility] [address] [place] [id number] vf/fp Ophthalmology Comment on above: vf/fp Start: 08-23-2025 DIABETES SCREEN DIABETES SCREEN [facility] Start: 07-19-2025 BP Controlled (<130/80) BP Con trolled (<130/80) [facility] Start: 07-07-2025 End: 07-07-2025 Patient encounter procedure Radiology Comment on above: Dx: Bilateral caroti d artery stenosis [I65.23] follow up Start: 07-06-2025 End: 02-03-2026 US Carotid arteries - bilateral US CAROTID BILATERAL Radiology Routine Bilateral carotid artery stenosis Expected: 07/06/2025 (Approximate), Expires: 02/03/2026 [facility] Work Phone: Comment on above: Expected: 07/06/2025 (Approximate), Expires: 02/03/2026 Start: 06-18-2025 DIABETES SCREEN DIABETES SCREEN [facility] Start: 05-20-2025 [facility] Start: 05-16-2025 End: 05-16-2025 Patient encounter procedure 05/16/2025 3:15 PM EDT Office Visit Pulmonary Medicine [address] [place] [address] Caroline Johnson MD [address] [place] [address] 3 month follow up after PFT - Mohamed patient tranfering closer to home Pulmonary Medicine Comment on above: [address] PFT - Mohamed patient tranfering closer to home Start: 05-16-2025 End: 05-16-2025 ambulatory [facility] Comment on above: Centrilobular emphys mary ann (HCC) [J43.2] Start: 05-12-2025 BP Controlled (<130/80) BP Con trolled (<130/80) [facility] Start: 05-03-2025 Screening for malign ant neoplasm of colon [facility] Start: 04-30-2025 BP Controlled (<130/80) BP Con trolled (<130/80) [facility] Start: 04-29-2025 BP Controlled (<130/80) BP Con trolled (<130/80) [facility] Start: 04-29-2025 End: 04-29-2025 Patient encounter procedure 04/29/2025 1:40 PM EDT Office Visit Internal Medicine [place] [address] [place] [address] Kesha Boone APRN.OVEN BUILDER [address] [place] [address] 6 month follow up Internal Medicine [place] Comment on above: 6 month follow up Start: 04-14-2025 End: 01-12-2026 Prostate specific Ag [Mass/volume] in Serum or Plasma Prostate Specific Antigen Lab Routine Nocturia High prostate specific antigen (PSA) Expected: 04/14/2025 (Approximate), Expires: 01/12/2026 [facility] Service Area Work Phone: Comment on above: Expected: 04/14/2025 (Approximate), Expires: 01/12/2026 Start: 04-04-2025 Influenza vaccination Influenza Vacc ine (#1) [facility] Start: 03-24-2025 Shingrix Vaccine (2 of 2) Shingrix Vaccine (2 of 2) [facility] Start: 03-14-2025 End: 03-14-2025 Patient encounter procedure 03/14/2025 1:45 PM EDT Office [place] [address] Massiel Harrell MD [place] [phone] vf/fp Ophthalmology Comment on above: vf/fp Start: 03-07-2025 [facility] Start: 02-11-2025 End: 02-11-2025 Patient encounter procedure 02/11/2025 9:00 AM EDT Office Visit Pulmonary Medicine [address] [place] [address] Moises Pendleton MD [address] [place], [place] [id number] ?COPD//lung nodule Pulmonary Medicine Comment on above: ?COPD//lung nodule Start: 01-18-2025 End: 01-18-2025 Patient encounter procedure 01/18/2025 9:30 AM EDT Office Visit Pulmonary Medicine [address] [place] [address] Moises Pendleton MD [address] [place] [address] ?COPD//lung nodule Pulmonary Medicine Comment on above: ?COPD//lung nodule Start: 01-12-2025 End: 01-12-2025 Patient encounter procedure 01/12/2025 1:15 PM EDT Office Visit [facility] [address] [place] [id number] Elias Rider MD [address] [place] [address] [facility] Start: 01-02-2025 End: 07-07-2025 Prostate specific Ag [Mass/volume] in Serum or Plasma Prostate Specific Antigen Lab Routine Nocturia Expected: 01/02/2025 (Approximate), Expires: 07/07/2025 [facility] Service Area Work Phone: Comment on above: Expected: 01/02/2025 (Approximate), Expires: 07/07/2025 Start: 12-31-2024 End: 12-31-2024 Patient encounter procedure 12/31/2024 10:40 AM EDT Appointment Cat Scan [address] [place] [address] 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] Cat Scan Comment on above: Dx: Nonruptured cere bral aneurysm (HCC) [I67.1] Start: 12-30-2024 End: 03-31-2025 Creatinine and Glomerular filtration rate.predicted panel - Serum, Plasma or Blood CREATININE BLD Lab Routine Intracranial atherosclerosis Expected: 12/30/2024, Expires: 03/31/2025 [facility] Work Phone: Comment on above: Expected: 12/30/2024 , Expires: 03/31/2025 Start: 12-21-2024 End: 12-21-2024 Patient encounter procedure 12/21/2024 10:00 AM EDT Office Visit [facility] [address] [place] [phone] Carolin Fang MD [address] [facility] [place] [place] [id number] Diagnosis: L ICA Athero/Aneurysm [facility] Comment on above: Diagnosis: L ICA Ath ero/Aneurysm Start: 12-14-2024 End: 12-14-2024 Patient encounter procedure 12/14/2024 10:15 AM EDT Office Visit Pulmonary Medicine [address] [place], [place] [phone] Moises Pendleton MD [address] [place] [address] lung nodule Pulmonary Medicine Comment on above: lung nodule Start: 12-07-2024 PROSTATE CANCER SCREENING DISCUSSION PROSTATE CANCER SCREENING DISCUSSION [facility] Start: 10-31-2024 End: 12-22-2024 CT Chest WO contrast CT CHEST WO IVCON Radiology Routine Abnormality of lung on CXR Expected: 10/31/2024, Expires: 12/22/2024 [facility] Work Phone: Comment on above: Expected: 10/31/2024 , Expires: 12/22/2024 Start: 10-27-2024 End: 01-26-2025 25-hydroxyvitamin D3 [Mass/volume] in Serum or Plasma [facility] Comment on above: Expected: 10/27/2024 , Expires: 01/26/2025 Start: 10-27-2024 End: 01-26-2025 CBC panel - Blood by Automated count [facility] Comment on above: Expected: 10/27/2024 , Expires: 01/26/2025 Start: 10-27-2024 End: 01-26-2025 Comprehensive metabolic 2000 panel - Serum or Plasma [facility] Comment on above: Expected: 10/27/2024 , Expires: 01/26/2025 Start: 10-27-2024 COVID-19 Vaccine ( season) COVID-19 Vaccine () [facility] Start: 10-27-2024 Covid-19 Vaccine ( season) Covid-19 Vaccine ( season) [facility] Start: 10-27-2024 End: 01-26-2025 Magnesium [Mass/volume] in Serum or Plasma [facility] Comment on above: Expected: 10/27/2024 , Expires: 01/26/2025 Start: 10-27-2024 End: 10-27-2024 Patient encounter procedure 10/27/2024 2:00 PM EDT Office Visit Internal Medicine [place] [address] [place] [address] Malu Rowe MD [address] [place] [address] 6 mo follow up [facility] Medicine [place] Comment on above: 6 mo follow up Start: 10-27-2024 End: 01-26-2025 Thyrotropin [Units/volume] in Serum or Plasma [facility] Comment on above: Expected: 10/27/2024 , Expires: 01/26/2025 Start: 10-27-2024 End: 01-26-2025 Thyroxine (T4) free [Mass/volume] in Serum or Plasma [facility] Comment on above: Expected: 10/27/2024 , Expires: 01/26/2025 Start: 10-27-2024 End: 01-26-2025 Triiodothyronine (T3) Free [Mass/volume] in Serum or Plasma [facility] Comment on above: Expected: 10/27/2024 , Expires: 01/26/2025 Start: 10-26-2024 Annual PCP Team Organic Preparation Technician dayanna Disease Visit Annual PCP Team Chronic Disease Visit [facility] Start: 10-26-2024 BP Controlled (<130/80) BP Con trolled (<130/80) [facility] Start: 09-22-2024 End: 09-22-2024 Patient encounter procedure 09/22/2024 1:45 PM EST Office [place] [address] [place] [address] vf/fp return in 6 months Ophthalmology Comment on above: vf/fp return in 6 mo nt Start: 08-30-2024 DIABETES SCREEN DIABETES SCREEN [facility] Start: 08-04-2024 Advance Directive Discussion Advance Directive Discussion [facility] Start: 08-04-2024 Medicare Advantage Annual Wellness Visit Medicare Advantage Annual Wellness Visit [facility] Start: 07-19-2024 End: 07-19-2024 Patient encounter procedure 07/19/2024 3:30 PM EST Office Visit Vascular Surg Dept [address] [place] [address] Carlos A Kennedy MD [address] [place] [address] DX:S/P carotid endarterectomy Vascular Surg Dept Comment on above: DX:S/P carotid endar terectomy Start: 07-19-2024 End: 07-19-2024 Patient encounter procedure Vascular Surgery Comment on above: 1 Year W/ Carotid & Full PVR Start: 04-30-2024 End: 04-30-2024 Patient encounter procedure 04/30/2024 11:40 AM EDT Office Visit Endocrinology [address] [place], [place] [phone] Christine Greene MD [address] [place] [address] Follow up Endocrinology Comment on above: Follow up Start: 04-29-2024 End: 07-29-2024 25-hydroxyvitamin D3 [Mass/volume] in Serum or Plasma [facility] Comment on above: Expected: 04/29/2024 , Expires: 07/29/2024 Start: 04-29-2024 End: 07-29-2024 Alpha 1 antitrypsin [Mass/volume] in Serum or Plasma [facility] Comment on above: Expected: 04/29/2024 , Expires: 07/29/2024 Start: 04-29-2024 End: 07-29-2024 CBC W Auto Differential panel - Blood [facility] Comment on above: Expected: 04/29/2024 , Expires: 07/29/2024 Start: 04-29-2024 End: 07-29-2024 Comprehensive metabolic 2000 panel - Serum or Plasma [facility] Comment on above: Expected: 04/29/2024 , Expires: 07/29/2024 Start: 04-29-2024 End: 07-29-2024 Lipid 1996 panel - Serum or Plasma [facility] Comment on above: Expected: 04/29/2024 , Expires: 07/29/2024 Start: 04-29-2024 End: 07-29-2024 PSA/PROSTATE SPECIFIC ANTIGEN SCREENING [facility] Comment on above: Expected: 04/29/2024 , Expires: 07/29/2024 Start: 04-29-2024 End: 07-29-2024 Thyrotropin [Units/volume] in Serum or Plasma [facility] Comment on above: Expected: 04/29/2024 , Expires: 07/29/2024 Start: 04-29-2024 End: 04-29-2024 Patient encounter procedure 04/29/2024 11:00 AM EDT Office Visit [facility] [address] [place] [address] Kesha Boone APRN.OVEN BUILDER [address] [place] [address] 6 mo follow up [facility] Comment on above: 6 mo follow up Start: 04-25-2024 BP Controlled (<130/80) BP Con trolled (<130/80) [facility] Start: 04-04-2024 Covid-19 Vaccine ( season) Covid-19 Vaccine () [facility] Start: 04-04-2024 Influenza vaccination [facility] Start: 03-26-2024 COLORECTAL CANCER SCREENING COLORECTAL CANCER SCREENING [facility] Start: 03-26-2024 FECAL OCCULT BLOOD FECAL OCCULT BLOO D [facility] Start: 03-26-2024 Screening for malign ant neoplasm of colon [facility] Start: 03-25-2024 BP CONTROLLED (<130/80) BP CON TROLLED (<130/80) [facility] Start: 03-08-2024 End: 03-08-2024 Patient encounter procedure 03/08/2024 2:15 PM EDT Office Visit [facility] [address] [place] [address] Massiel Harrell MD [address] [place] [address] VF/FP Ophthalmology Comment on above: VF/FP Start: 02-26-2024 Covid-19 Vaccine () Covid-19 Vaccine () [facility] Start: 02-01-2024 Influenza vaccination Influenza Vacc ine (#1) [facility] Comment on above: Postponed from 04/04 (Declined at this time) Start: 01-22-2024 BP CONTROLLED (<130/80) BP CON TROLLED (<130/80) [facility] Start: 11-12-2023 End: 02-11-2024 Comprehensive metabolic 2000 panel - Serum or Plasma COMPREHENSIVE METABOLIC PANEL Lab Routine Elevated alkaline phosphatase level Expected: 11/12/2023, Expires: 02/11/2024 [facility] Work Phone: Comment on above: Expected: 11/12/2023 , Expires: 02/11/2024 Start: 10-29-2023 BP CONTROLLED (<130/80) BP CON TROLLED (<130/80) [facility] Start: 08-30-2023 BP CONTROLLED (<130/80) BP CON TROLLED (<130/80) [facility] Start: 08-27-2023 End: 08-27-2023 Patient encounter procedure 08/27/2023 1:30 PM EST Office Visit [facility] [address] [place] [id number] Elias Rider MD [address] [place] [address] [facility] Start: 08-23-2023 BP CONTROLLED (<130/80) BP CON TROLLED (<130/80) [facility] Start: 08-04-2023 Advance Directive Discussion Advance Directive Discussion [facility] Start: 07-11-2023 End: 12-08-2023 Patient encounter procedure 07/11/2023 11:00 AM EST Office Visit [facility] [place] [address] [place] [address] Frank Cano, PSYCHOLOGICAL STRESS EVALUATOR [address] [place] [address] [facility] [place] Start: 06-18-2023 ANNUAL PCP TEAM SUPERVISOR PIGMENT MAKING DAYANNA DISEASE VISIT ANNUAL PCP TEAM CHRONIC DISEASE VISIT [facility] Start: 06-18-2023 BP CONTROLLED (<130/80) BP CON TROLLED (<130/80) [facility] Start: 04-04-2023 Covid-19 Vaccine () Covid-19 Vaccine () [facility] Start: 04-04-2023 Influenza vaccination [facility] Start: 03-25-2023 End: 05-25-2023 25-hydroxyvitamin D3 [Mass/volume] in Serum or Plasma [facility] Work Phone: Comment on above: Expected: 03/25/2023 , Expires: 05/25/2023 Start: 03-25-2023 End: 05-25-2023 Comprehensive metabolic 2000 panel - Serum or Plasma [facility] Work Phone: Comment on above: Expected: 03/25/2023 , Expires: 05/25/2023 Start: 03-25-2023 End: 05-25-2023 PSA/PROSTSPECAG SCRN [facility] Work Phone: Comment on above: Expected: 03/25/2023 , Expires: 05/25/2023 Start: 03-25-2023 End: 05-25-2023 Thyrotropin [Units/volume] in Serum or Plasma [facility] Work Phone: Comment on above: Expected: 03/25/2023 , Expires: 05/25/2023 Start: 01-31-2023 Influenza vaccination INFLUENZA (#1) [facility] Comment on above: Postponed from 04/04 (Declined at this time) Start: 10-16-2022 COLORECTAL CANCER SCREENING COLORECTAL CANCER SCREENING [facility] Start: 10-16-2022 COVID-19 VACCINE (5 - Pfizer series) COVID-19 VACCINE (5 - Pfizer series) [facility] Start: 10-16-2022 FECAL OCCULT BLOOD FECAL OCCULT BLOO D [facility] Start: 08-30-2022 ANNUAL PCP TEAM SUPERVISOR PIGMENT MAKING DAYANNA DISEASE VISIT ANNUAL PCP TEAM CHRONIC DISEASE VISIT [facility] Start: 08-30-2022 BP CONTROLLED (<130/80) BP CON TROLLED (<130/80) [facility] Start: 08-23-2022 End: 10-23-2022 Comprehensive metabolic 2000 panel - Serum or Plasma [facility] Work Phone: Comment on above: Expected: 08/23/2022 , Expires: 10/23/2022 Start: 08-13-2022 COVID-19 Vaccine (2 - Pfizer series) COVID-19 Vaccine (2 - Pfizer series) [facility] Start: 08-05-2022 SHINGRIX VACCINE (1 of 2) SHINGRIX VACCINE (1 of 2) [facility] Comment on above: Postponed from 07/12 (Insurance Coverage) Start: 08-04-2022 ADVANCE DIRECTIVE DISCUSSION ADVANCE DIRECTIVE DISCUSSION [facility] Start: 05-27-2022 WARD, Provider : Elias Rider II, Status: Pen, Time: 10:00 AM WARD, Provider: Elias Rider II, Status: Pen, Time: 10:00 AM [facility] Work Phone: Start: 04-04-2022 Influenza vaccination [facility] Start: 03-06-2022 WARD, Provider : Elias Rider II, Status: Pen, Time: 8:00 AM WARD, Provider: Elias Rider II, Status: Pen, Time: 8:00 AM [facility]dc[facility] Work Phone: Start: 01-31-2022 Influenza vaccination INFLUENZA (#1) [facility] Comment on above: Postponed from 04/04 (Declined at this time) Start: 01-30-2022 FUV, Provider: Elias Rider II, Status: Pen, Time: 2:00 PM FUV, Provider: Elias Rider II, Status: Pen, Time: 2:00 PM [facility] Work Phone: Start: 01-26-2022 ANNUAL PCP TEAM SUPERVISOR PIGMENT MAKING DAYANNA DISEASE VISIT ANNUAL PCP TEAM CHRONIC DISEASE VISIT [facility] Start: 11-21-2021 FUV, Provider: Elias Rider II, Status: Pen, Time: 2:00 PM FUV, Provider: Elias Rider II, Status: Pen, Time: 2:00 PM [facility] Work Phone: Start: 08-04-2021 ADVANCE DIRECTIVE DISCUSSION ADVANCE DIRECTIVE DISCUSSION [facility] Start: 04-05-2021 Pneumococcal Vaccine : Age 65+ (2 - PCV) Pneumococcal Vaccine: Age 65+ (2 - PCV) [facility] Start: 04-05-2021 PNEUMOCOCCAL: 65+ (2 - PCV) PNEUMOCOCCAL: 65+ (2 - PCV) [facility] Start: 05-04-2020 Assay of prostate specific antigen total Prostate Specific Antigen [facility] [place] Phone: Start: 04-04-2020 Influenza vaccination INFLUENZ A VACCINE (Season Ended) [facility] Start: 04-04-2020 Influenza vaccinatio n given Sequential Influenza Vaccine (Season Ended) [facility] Start: 11-28-2019 BP CONTROLLED (<130/80) BP CON TROLLED (<130/80) [facility] Start: 2019 Abdominal aortic aneurysm screening ABDOMINAL AORTIC ANEURYSM HIGH RISK SCREEN [facility] Start: 2019 Fall risk assessment Falls Risk Asse ssment [facility] Start: 2019 Pneumococcal vaccination [facility] Start: 2014 RSV High Risk: (Elde rly (60+) or Population) (1 - Risk 60-74 years 1-dose series) RSV High Risk: (Elderly (60+) or Population) (1 - Risk 60-74 years 1-dose series) [facility] Start: 2014 RSV Vaccine (1 - 1-d ose 60+ series) RSV Vaccine (1 - 1-dose 60+ series) [facility] Start: 2014 RSV Vaccine (1 - Ris k 60-74 years 1-dose series) RSV Vaccine (1 - Risk 60-74 years 1-dose series) [facility] Start: 2004 Administration of herpes zoster vaccine Zoster Vaccines (1 of 2) [facility] Start: 2004 Colonoscopy COLORECTAL CAN CER SCREENING DISCUSSION [facility] Start: 2004 Prostate specific antigen measurement PROSTATE CANCER SCREENING DISCUSSION [facility] Start: 2004 Screening for malign ant neoplasm of colon Flexible sigmoidoscopy [facility] Start: 2004 SHINGRIX VACCINE (1 of 2) SHINGRIX VACCINE (1 of 2) [facility] Start: 2004 Zoster vaccine hzv l hilda for subcutaneous use ZOSTER (SHINGLES) VACCINE (1 of 2) [facility] Start: 2004 Zoster Vaccines (1 o f 2) Zoster Vaccines (1 of 2) [facility] Start: 1999 COLOGUARD (FIT-DNA) COLOGUARD (FIT-D NA) [facility] Start: 1999 Colonoscopy COLONOSCOPY [facility] Start: [address] COLONOGRAPHY [facility] Start: 1999 Screening for malign ant neoplasm of colon [facility] Start: 1999 SIGMOIDOSCOPY SIGMOIDOSCOPY [facility] Start: 1994 Fasting lipid profile LIPID SCREENIN G [facility] Start: 1984 Zoledronic acid therapy Alpha- 1 Antitrypsin Deficiency Screening [facility] Start: 1973 Third diphtheria, tetanus and acellular pertussis (DTaP) vaccination TDAP (ADULT) [facility] Start: 1972 Hepatitis C screening Hepatitis C Sc reening [facility] Start: 1972 Tetanus vaccination [facility] Start: 1966 Depression screening using PHQ-9 (Patient Health Questionnaire 9) score Depression Screening (PHQ-2/9) [facility] Start: 1957 History and physical examination, annual for health maintenance Wellness Visit [facility] Start: 1954 Abdominal aortic aneurysm screening Abdominal Aortic Ultrasound [facility] Start: 1954 Annual wellness visit Welcome to Medicare Visit [facility] Start: 1954 Fall risk assessment Falls Risk Asse ssment [facility] Start: 1954 Hepatitis C antibody , confirmatory test [facility] Start: 1954 Lipid panel Lipid Panel [facility] Start: 1954 Medicare Annual Wellness Visit Medicare Annual Wellness Visit (AWV) [facility] Start: 1954 Prostate specific antigen measurement PSA Level [facility] Start: 1954 Screening for malign ant neoplasm of colon [facility] Start: 1954 Tetanus vaccination Tetanus: Every 1 0yrs [facility] Start: 1954 US scan of abdominal aorta Abdominal Aortic Ultrasound [facility] Camera fundoscopy FUNDUS PHOTOS OU (BOTH EYES) [facility] Imaging Routine Primary open angle glaucoma (POAG) of right eye, moderate stage 09/13/2024 1:30 PM EST [facility] Work Phone: COVID & INFLUENZA A/ B & RSV PCR, ROUTINE COVID & INFLUENZA A/B & RSV PCR, ROUTINE Microbiology Routine Viral illness Ordered: 05/12/2024 [facility] Work Phone: Comment on above: Ordered: 05/12/2024 COVID & INFLUENZA A/ B & RSV PCR, ROUTINE COVID & INFLUENZA A/B & RSV PCR, ROUTINE Microbiology Routine Acute cough 09/27/2024 7:56 PM EST [facility] Work Phone: CT Chest WO contrast CT CHEST WO IVCON Radiology Routine Abnormality of lung on CXR 11/01/2024 3:46 PM EDT [facility] End: 08-18-2023 CTA HEAD WO/W IVCON CTA HEAD WO/W IVCON Radiology Routine Vasculopathy 1 Occurrences starting 07/19/2022 until 08/18/2023 [facility] Work Phone: Comment on above: 1 Occurrences starti ng 07/19/2022 until 08/18/2023 End: 08-18-2023 CTA NECK W IVCON CTA NECK W IVCON Radiology Routine Vasculopathy 1 Occurrences starting 07/19/2022 until 08/18/2023 [facility] Work Phone: Comment on above: 1 Occurrences starti ng 07/19/2022 until 08/18/2023 End: 08-23-2023 ECG COMPLETE ECG COMPLETE ECG Routine Preop exam for internal medicine 1 Occurrences starting 08/23/2022 until 08/23/2023 [facility] Work Phone: Comment on above: 1 Occurrences starti ng 08/23/2022 until 08/23/2023 ECG COMPLETE ECG COMPLETE ECG 08/23/2022 8:27 AM EST [facility] Hemoglobin.gastroint est inal.lower [Presence] in Stool by Immunoassay FECAL OCCULT BLOOD TEST Lab Routine Screening for colon cancer Ordered: 03/25/2023 [facility] Work Phone: Comment on above: Ordered: 03/25/2023 Hemoglobin.gastroint est inal.lower [Presence] in Stool by Immunoassay IMMUNOCHEMICAL FECAL OCCULT BLOOD TEST Lab Routine Screening for colon cancer Ordered: 04/29/2024 [facility] Work Phone: Comment on above: Ordered: 04/29/2024 End: 03-13-2026 LUNG DIFFUSION CAPACITY (DLCO) LUNG DIFFUSION CAPACITY (DLCO) PFT Routine Centrilobular emphysema (HCC) 1 Occurrences starting 02/11/2025 until 03/13/2026 [facility] Comment on above: 1 Occurrences starti ng 02/11/2025 until 03/13/2026 End: 03-13-2026 LUNG VOLUMES LUNG VOLUMES PFT Routine Centrilobular emphysema (HCC) 1 Occurrences starting 02/11/2025 until 03/13/2026 [facility] Comment on above: 1 Occurrences starti ng 02/11/2025 until 03/13/2026 Patient Education ED Headache Unspecified [facility] Work Phone: End: 07-19-2023 [facility] Vascular Lab Routine Peripheral arterial disease (HCC) 1 Occurrences starting 07/19/2022 until 07/19/2023 [facility] Work Phone: Comment on above: 1 Occurrences starti ng 07/19/2022 until 07/19/2023 End: 04-23-2024 Radiologic exam chest 2 views XR CHEST 2V FRONTAL/LAT Radiology Routine Weight loss 1 Occurrences starting 03/25/2023 until 04/23/2024 [facility] Work Phone: Comment on above: 1 Occurrences starti ng 03/25/2023 until 04/23/2024 Radiologic exam ches t 2 views XR CHEST 2V FRONTAL/LAT Radiology Routine Weight loss 03/25/2023 4:23 PM EDT [facility] Work Phone: End: 03-13-2026 SIX MINUTE WALK SIX MINUTE WALK PFT Routine Centrilobular emphysema (HCC) 1 Occurrences starting 02/11/2025 until 03/13/2026 [facility] Comment on above: 1 Occurrences starti ng 02/11/2025 until 03/13/2026 End: 03-13-2026 SPIROMETRY WITH DILATOR IF OBSTRUCTED SPIROMETRY WITH DILATOR IF OBSTRUCTED PFT Routine Centrilobular emphysema (HCC) 1 Occurrences starting 02/11/2025 until 03/13/2026 [facility] Work Phone: Comment on above: 1 Occurrences starti ng 02/11/2025 until 03/13/2026 End: 05-24-2024 US ABD RIGHT UPPER QUADRANT US ABD RIGHT UPPER QUADRANT Radiology Routine Elevated alkaline phosphatase level 1 Occurrences starting 04/25/2023 until 05/24/2024 [facility] Work Phone: Comment on above: 1 Occurrences starti ng 04/25/2023 until 05/24/2024 End: 04-01-2025 US Carotid arteries - bilateral US CAROTID ARTERIES [facility] Vascular Lab Routine S/P carotid endarterectomy 1 Occurrences starting 04/01/2024 until 04/01/2025 [facility] Comment on above: 1 Occurrences starti ng 04/01/2024 until 04/01/2025 End: 12-18-2022 US CAROTID ARTERIES [facility] US CAROTID ARTERIES [facility] Vascular Lab Routine Bilateral carotid artery stenosis 1 Occurrences starting 12/18/2021 until 12/18/2022 [facility] Work Phone: Comment on above: 1 Occurrences starti ng 12/18/2021 until 12/18/2022 End: 01-22-2024 US CAROTID ARTERIES [facility] US CAROTID ARTERIES [facility] Vascular Lab Routine Bilateral carotid artery stenosis 1 Occurrences starting 01/21/2023 until 01/22/2024 [facility] Work Phone: Comment on above: 1 Occurrences starti ng 01/21/2023 until 01/22/2024 End: 04-01-2025 US Lower extremity artery - bilateral [facility] Vascular Lab Routine S/P carotid endarterectomy 1 Occurrences starting 04/01/2024 until 04/01/2025 [facility] Work Phone: Comment on above: 1 Occurrences starti ng 04/01/2024 until 04/01/2025 End: 11-26-2025 XR Chest PA and Lateral XR CHEST 2V FRONTAL/LAT Radiology Routine Chronic cough Smoker unmotivated to quit 1 Occurrences starting 10/27/2024 until 11/26/2025 [facility] Work Phone: Comment on above: 1 Occurrences starti ng 10/27/2024 until 11/26/2025 XR Chest PA and Lateral XR CHEST 2V FRONTAL/LAT Radiology Routine Chronic cough Smoker unmotivated to quit 10/27/2024 3:41 PM EDT [facility] Work Phone: [facility] NEGATED: Highlighted row has been ruled out! Planned Goals not documented [facility]ul[facility]Bf[facility] Work Phone: Immunizations Immunization Date Immunization Notes Care Provider Karine sanders 04-29-2024 COVID-19 vaccine, ag e 12+ yr ([email or web address] [facility]) Kesha Boone SYSTEM CONFIGURATION SPECIALIST.OVEN BUILDER Work Phone: [facility] 04-29-2024 influenza, high dose seasonal, preservative-free Kesha Boone SYSTEM CONFIGURATION SPECIALIST.OVEN BUILDER Work Phone: [facility] 04-29-2024 influenza virus vacc ine, unspecified formulation Moises Pendleton MD Work Phone: [facility] 10-27-2023 COVID-19 vaccine, ag e 12+ yr, season (PFIZER-BIONTECH) Christine Greene MD Work Phone: [facility] 06-18-2022 COVID-19 booster vaccine, age 12+ yr, bivalent (PFIZER-BIONTECH) Irlanda Canela SYSTEM CONFIGURATION SPECIALIST.PSYCHOLOGICAL STRESS EVALUATOR Work Phone: [facility] 06-18-2022 pneumococcal (PCV20) vaccine, 20 valent (PREVNAR 20) Irlanda Canela SYSTEM CONFIGURATION SPECIALIST.PSYCHOLOGICAL STRESS EVALUATOR Work Phone: [facility] 02-22-2022 COVID-19 vaccine, ag e 12+ yr (PFIZER-BIONTECH - PECK TOP) Nj Nurse Work Phone: [facility] Work Phone: 09-03-2021 Pfizer Coreas Cap SARS-CoV-2 Massiel Harrell MD Work Phone: [facility] Work Phone: 06-23-2020 influenza, high-dose , quadrivalent vaccine (FLUZONE HIGH DOSE QUADRIVALENT) Kesha Boone SYSTEM CONFIGURATION SPECIALIST.OVEN BUILDER Work Phone: [facility] 06-23-2020 influenza virus vacc ine, unspecified formulation Janeen Cioce SYSTEM CONFIGURATION SPECIALIST.PSYCHOLOGICAL STRESS EVALUATOR Work Phone: [facility] 04-05-2020 pneumococcal polysaccharide vaccine, 23 valent Kesha Boone SYSTEM CONFIGURATION SPECIALIST.OVEN BUILDER Work Phone: [facility] 12-15-2015 tetanus toxoid, redu huy diphtheria toxoid, and acellular pertussis vaccine, adsorbed Kesha Boone SYSTEM CONFIGURATION SPECIALIST.OVEN BUILDER Work Phone: [facility] Payers Date Payer Category Payer Self-pay [id number] 2024 Unknown [id number] 2023 Medicare (Managed Care) [id number]. [id number] 2023 Private Health Insurance [id number] 2022 Medicare [id number] 2020 Unknown ANTHEM BLUE CROS S AND BLUE SHIELD ANTHEM MEDIBLUE HMO [id number] 2020-Present [phone] [address] [place] [address] O [id number] 2019 Medicare MEDICARE MEDICAR E PART A & B xxxxxxxxxxx 2019-Present [place] xxxxxxxxxxx [id number] 2019 Medicare MEDICARE MEDICAR E A AND B [id number] 2019-Present [place] [id number] 2019 Medicare [id number] 2019 Medicare [id number]. [id number] 1954 Unknown [id number] 2.16.840.1.410225.3.579.2. 903 1954 Unknown [id number] 2.16.840.1.722206.3.579.2. 1069 1954 Unknown [id number] 2.16.840.1.801886.3.579.2. 1069 1954 Unknown [id number] 2.16.840.1.903188.3.579.2. 1069 1954 Unknown [id number] 2.16.840.1.903057.3.579.2. 356 1954 Unknown [id number] 2.16.840.1.731563.3.579.2. 356 1954 Unknown [id number] 2.16.840.1.342319.3.579.2. 903 1954 Unknown [id number] 2.16.840.1.236043.3.579.2. 903 1954 Unknown [id number] 2..840.1.148354.3.579.2. 1244 1954 Unknown [id number] 2.840.1.544328.3.579.2. 1244 1954 Unknown [id number] 2.840.1.219537.3.579.2. 1244 Medicaid [id number] Medicare [id number] Unknown Unknown [id number] Unknown [id number] Unknown [id number] 2..840.1.753973.3.579.2. 462 Unknown [id number] 2.840.1.345162.3.579.2. 462 Unknown [id number] 2.16840.1.933471.3.579.2. 462 Unknown [id number] 2.16840.1.928901.3.579.2. 462 Unknown [id number] 2..840.1.194783.3.579.2. 462 Unknown [id number] 2.16840.1.375253.3.579.2. 462 Unknown [id number] 2.16.840.1.842693.3.579.2. 462 Unknown [id number] 2.16.840.1.069259.3.579.2. 462 Social History Date Type Detail Facility Start: 12-27-2019 End: 07-11-2023 Tobacco smoking status NHIS Current some day smoker [facility] Start: 08-04-1969 History of tobacco use Cigarette Smoker [facility] Start: 12-27-2019 End: 03-14-2025 Alcohol intake Ex-drinker (finding) [facility] Start: 12-27-2019 History SDOH Alcohol Frequency 1 [facility] Start: 12-27-2019 Alcohol Comment [facility]IONAL [facility] Start: 1955 Sex Assigned At Not on file O [facility] Start: 08-26-2021 End: 01-12-2025 Exposure to SARS-CoV-2 (event) Not sure [facility] Start: 08-04-1969 End: 10-27-2024 Tobacco smoking status NHIS Current every day smoker [facility] Start: 01-01-2020 End: 07-09-2020 Cigarettes smoked current (pack per day) - Reported [facility] Start: 01-01-2020 End: 03-14-2025 Tobacco use and exposure Never used [employer] Start: 03-31-2020 End: 05-20-2025 Tobacco smoking status NHIS Ex-smoker [facility] Start: 12-15-2015 End: 06-18-2022 Tobacco Comment 1 pack per 4 to 5 days (started 10 to 15 years ago)--as of 12/15/15 [facility] Start: 08-21-2021 End: 03-19-2023 Tobacco smoking status NHIS Unknown if ever smoked [facility] Start: 10-16-2020 None [facility] Start: 10-16-2020 Spouse/ Signif icant Other [facility] Start: 1955 Sex Assigned At Male W [facility] Start: 08-04-1969 History of tobacco use Current smoker [facility] Start: 07-09-2020 End: 03-25-2023 Tobacco use panel [facility] Start: 07-05-2012 Adult Depression Screening Assessment 0 [facility] Start: 12-27-2019 Gender identity Identifies as male gender (finding) [facility] Start: 12-27-2019 Sexual orientation Heterosexual (fin cristofer) [facility] Start: 05-19-2023 Tobacco smoking status NHIS Never smoked tobacco [facility] NEGATED: Highlighted row - - [facility] Work Phone: Medical Equipment Procedure Code Equipment Code Equipment Original Text Equipment Identifier Dates Patch Bovine Pericardial Vascular Duravess 8x8 - [id number] Start: 03-24-2020 Patch Thk.5mm Duncan vine Pericardial [id number] Cardiovascular Resilience Durable - [id number] Start: 04-04-2020 Comment on above: Description: Bovine patch Stent Viabahn 8m m 7fr Heparin 10cm 120cm Endoprosthesis Delivery System - [id number] Start: 04-04-2020 Stent Epic 10mm Nitinol 100mm 120cm Vascular Self Expand Accepts 6fr Sheath - [id number] Start: 04-04-2020 Stent Epic 10mm Nitinol 100mm 120cm Vascular Self Expand Accepts 6fr Sheath - [id number] Start: 04-04-2020 Stent Icast 8mm 7fr .035in Ptfe 38mm 120cm Tracheobronchial Covered - [id number] Start: 04-04-2020 Stent Icast 8mm 7fr .035in Ptfe 38mm 120cm Tracheobronchial Covered - [id number] Start: 04-04-2020 Goals Date Patient Goal Desired Activity /State Personal health goal Functional Status Date Assessment Result Facility NEGATED: Highlighted row Functional performance Functional status health issues are not documented Disease [facility]-Vnlttqa-Vzxonkm Work Phone: Mental Status Date Assessment Result Facility 03-07-2025 Cognitive function Level Of Cons ciousness Awake;Alert;Appropriate ;Follows Commands [facility] Work Phone: NEGATED: Highlighted row Cognitive function [Interpretation] Cognitive status health issues are not documented Disease [facility]Hhurqun[facility]Gjyz[facility] Work Phone: Clinical Notes 04-07-2020 to 05-27-2025 Note Date & Type Note Facility 05-27-2025 Note HNO ID: [id number] Author: KESHA BOONE APRN.OVEN BUILDER Service: ? Author Type: Nurse Specialist Type: Progress Notes Filed: 05/30/2025 07:14 Note Text: Subjective Patient ID: Denny is a 69 year old male who presents for Pre-Op Exam (Cyst removal). HPI Denny Gomez is a 69-year-old male with HTN, lung disease, and prior stroke, presenting for preoperative evaluation for excision of a large back lipoma, a forehead lesion, and facial cysts. Denny Gomez is a 69-year-old male with a history of HTN, CVA, and lung disease, presenting for a pre-operative evaluation for lipoma and cyst removal. Pre-Operative Evaluation: - Scheduled for lipoma and cyst removal at [facility] by Dr. Thorne. - Lipoma on back has increased in size; additional lipoma on forehead and cysts on face. - Independent in daily activities. - Able to climb two flights of stairs. - No recent hospitalizations or infections. - No recent use of prednisone or steroids. - No current oxygen use. - No known cancer or kidney problems. - No known heart failure. - No known diabetes. - No known VA. - No known dyspnea. - No known tobacco use. Weight Loss: - Unintentional weight loss of 18 lbs. Stable weight currently. - Good appetite; consuming Ensure protein shakes. - Concerned about potential cancer. Hypertension: - Managed by Dr. Fermin. 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 CVA: - History of CVA with residual vision loss. Lung Disease: - History of moderate COPD/lung disease. Followed by Dr. Carloine Johnson pulmonology. Has CT chest scheduled. History of stroke with residual vision loss. No history of VA. Able to take two flight of stairs without shortness of breath or chest pain. Followed by [facility] for hypertension and hyperlipidemia. Last 14 Encounter BP Readings: Date: BP: 05/27/2025 122/74 05/16/2025 132/68 05/16/2025 120/73 04/29/2025 112/74 02/11/2025 133/73 12/21/2024 117/63 10/27/2024 113/73 09/27/2024 116/62 07/19/2024 123/63 05/12/2024 120/68 04/30/2024 120/74 04/29/2024 100/64 11/13/2023 134/70 10/27/2023 100/60 ACS NSQIP Surgical Risk Calculator 1. Age Group: 65 - 74 years [...] No 15. Current Smoker within 1 Year: No 16. History of COPD: Yes 17. Dialysis: No 18. Acute Renal Failure: No 19. BMI Class Calculation: Normal ROS Constitutional: (+) weight loss Eyes: (-) vision loss Respiratory: (-) shortness of breath Gastrointestinal: (-) decreased appetite Objective BP 122/74 Pulse 78 Resp 14 Wt 68.9 kg (151 lb 14.4 oz) SpO2 96% BMI 22.04 kg/m? Physical Exam Vitals and nursing note reviewed. Constitutional: Appearance: Normal appearance. HENT: Head: Normocephalic and atraumatic. Eyes: Conjunctiva/sclera: Conjunctivae normal. Cardiovascular: Rate and Rhythm: Normal rate and regular rhythm. Heart sounds: Normal heart sounds. Pulmonary: Effort: Pulmonary effort is normal. Breath sounds: Normal breath sounds. Abdominal: General: Bowel sounds are normal. Palpations: Abdomen is soft. Musculoskeletal: Right lower leg: No edema. Left lower leg: No edema. Skin: General: Skin is warm and dry. Comments: Large lipoma / mass near left scapula and midline spine approximately 4 x 6 inches. Small facial lipoma above left brow. Neurological: General: No focal deficit present. Mental Status: He is alert and oriented to person, place, and time. Latest Ref Rng 04/29/2025 05/27/2025 WBC 3.70 - 11.00 k/uL 8.83 7.73 RBC 4.20 - 6.00 m/uL 4.47 4.16 (L) Hemoglobin 13.0 - 17.0 g/dL 14.8 13.5 Hematocrit 39.0 - 51.0 % 44.3 41.4 MCV 80.0 - 100.0 fL 99.1 99.5 MCH 26.0 - 34.0 pg 33.1 32.5 MCHC 30.5 - 36.0 g/dL 33.4 32.6 RDW-CV 11.5 - 15.0 % 12.2 12.2 Platelet Count 150 - 400 k/uL 242 226 MPV 9.0 - 12.7 fL 11.2 10.8 Neut% % 64.0 66.7 Abs Neut (ANC) 1.45 - 7.50 k/uL 5.66 5.16 Lymph% % 27.3 24.1 Abs Lymph 1.00 - 4.00 k/uL 2.41 1.86 Allen% % 6.9 7.4 Abs Allen <0.87 k/uL 0.61 0.57 Eosin% % 0.7 0.6 Abs Eosin <0.46 k/uL 0.06 0.05 Baso% % 0.6 0.8 Abs Baso <0.11 k/uL 0.05 0.06 Immature Gran % % 0.5 0.4 IMMATURE GRANS (ABS) <0.10 k/uL 0.04 0.03 NRBC /100 WBC 0.0 0.0 Absolute nRBC <0.01 k/uL <0.01 <0.01 DTYPE Auto Auto Protein, Total 6.3 - 8.0 g/dL 7.0 6.5 Albumin 3.9 - 4.9 g/dL 4.4 4.2 Calcium 8.5 - 10.2 mg/dL 9.6 9.2 Bilirubin, Total 0.2 - 1.3 mg/dL 0.3 0.4 Alkaline Phosphatase 38 - 113 U/L 85 82 AST 14 - (more content not included)... [facility] 05-20-2025 Progress note [facility] 05-16-2025 Note HNO ID: [id number] Author: CAROLINE JOHNSON MD Service: ? Author Type: Physician Type: Progress Notes Filed: 05/16/2025 16:05 Note Text: . Respiratory [place] Note Patient name: Denny Gomez PCP: Malu Rowe MD Referring Physician: Moises Pendletno MD CC: COPD, lung nodules HPI: Denny Gomez 69 year old male current smoker with PMH significant for HTN, Paget's disease, h/o stroke (occipital ICH, and MCA stroke), PAD s/p CEA, COPD, BPH, recently seen by Dr. Pendleton in [place]. Transferring care since lives in [place]. Recommendation at his initial visit was updated PFTs, Trelegy Ellipta and repeat CT in one year for small stable pulmonary nodules. Mr. Gomez is not taking any inhaled therapy, citing cost of Trelegy is prohibitive. Only symptom is with exertion. No significant cough, mucus production or wheezing. He does have problems with seasonal allergies with pollen being his most problematic allergen. Include nasal congestion and drainage. He is currently smoking with 1 pack lasting 4 days. He is trying to quit. Past he was able to quit for 2 months. DATA: RESPIRATORY THERAPY SIX MINUTE WALK TEST OXIMETRY REPORT Six Minute Walk Test for This Encounter Oxygen Device Liters FIO2 SpO2% HR Activity Feet Speed (MPH) R/A 98 69 Resting R/A 98 93 Six Minute Walk 690 1.3 R/A 99 73 Recovery PFT: Moderate obstruction with improvement postbronchodilator, air trapping, mild reduction in diffusing capacity Imaging / Diagnostic Studies: DATE OF EXAM: Nov 01 2024 3:46PM [facility] 0541 - CT CHEST WO IVCON / PROCEDURE REASON: Abnormality of lung on CXR IMPRESSION: 1. Couple of stable 2 to 3 mm pulmonary nodules dating back to 2017. 2. No additional pulmonary nodules or suspect intrathoracic lymphadenopathy. Minimal right upper lobe emphysema, several subcentimeter pulmonary nodules PAST MEDICAL HISTORY Diagnosis Date Abnormal hemoglobin (Hgb) 04/07/2020 Hx: POD2 labs with drop in hemoglobin to 8.4 from baseline 10.6; transfused 1u PRBC POD2 A: asymptomatic, no associated tachycardia or hypotension P: f/u AM CBC Anxiety and depression BPH (benign prostatic hyperplasia) Carotid artery stenosis, asymptomatic, left COPD (chronic obstructive pulmonary disease) (HCC) Critical lower limb ischemia (HCC) Essential hypertension History: home Norvasc, lisinopril Assessment: MAP 65-85 mmHg with goals of normotension Plan: Resumed amlodipine, holding lisinopril Facial swelling 04/05/2020 Hx: facial swelling noted this morning A: no stridor or dysphagia P: Decadron 8mg q6 for 4 doses complete, facial swelling resolved Will continue to monitor Iliac artery injury, left, initial encounter 04/04/2020 History: post op, iliac rupture during OR Assessment: 04/04/2020 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 BP control . 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 albuterol HFA (PROVENTIL HFA, VENTOLIN HFA) 90 mcg/actuation inhaler Inhale 2 puffs as instructed every 6 hours as needed for wheezing/shortness of breath. varenicline (CHANTIX) 1 mg tablet Take 0.5 tablets by mouth once daily for 3 days, THEN 0.5 tablets two times a day for 4 days, THEN 1 tablet two times a day for 23 days. rosuvastatin (CRESTOR) 40 mg tablet Take 1 tablet by mouth once daily. citalopram (CELEXA) 40 mg tablet Take 1 tablet by mouth once daily. amLODIPine (NORVASC) 5 mg tablet Take 1 tablet by mouth once daily. cholecalciferol (VITAMIN D-3) 5,000 unit tab Take 5,000 Units by mouth once daily. finasteride (PROSCAR) 5 mg tablet Take 5 mg by mouth once daily. tamsulosin (FLOMAX) 0.4 mg Take 0.4 mg by mouth once daily. varenicline (CHANTIX) 1 mg tablet Take 1 tablet by mouth two times a day. Patient should start on March 13, 2025. SOCIAL HISTORY[1] Worked at [employer] for 5 years Pets: None FAMILY HISTORY Problem Relation Age of Onset Heart Mother Glaucoma Brother Heart Brother Cancer Brother metastatic; no primary known PAST SURGICAL HISTORY Procedure Laterality Date ARTL CATHJ/CANNULJ MNTR/TRANSFUSION SPX PRQ 02/16/2008 CANALOPLASTY W/STENT Right 09/26/2022 Microstent CANALOPLASTY W/STENT Left 11/07/2022 CAROTID ENDARTERECTOMY Bilateral (more content not included)... [facility] 05-16-2025 Note HNO ID: [id number] Author: LAKEISHA ROSALES RPFT Service: ? Author Type: Respiratory Therapist Type: Procedures Filed: 05/16/2025 14:58 Note Text: Attestation signed by Boom Tay MD at 05/16/2025 3:14 PM The patient completed the six minute walk test with No stops. . The patient required Room Air to complete the test. The distance the patient walked in six minutes is extremely reduced. This is the first time patient takes the six minute walk test. The patient perceived their dyspnea during the six minute walk test to be 0-Nothing at all on the modified Pedro scale. The patient perceived their fatigue during the six minute walk test to be 0-Nothing at all on the modified Pedro scale. I have reviewed the findings and made appropriate revisions as needed. Boom Tay MD May 16, 2025 3:14 PM RESPIRATORY THERAPY SIX MINUTE WALK TEST OXIMETRY REPORT Six Minute Walk Test for This Encounter Oxygen Device Liters FIO2 SpO2% HR Activity Feet Speed (MPH) R/A 98 69 Resting R/A 98 93 Six Minute Walk 690 1.3 R/A 99 73 Recovery General Information Height Weight Pulse Oximetry Site Pre Blood Pressure Post Recovery Blood Pressure 176.8 cm (5' 9.61") 68 kg (150 lb) Forehead 120/73 131/74 _ Distance Walked (meters) Distance Walked (feet) Male Predicted Walk Distance (feet) Male Lower Limit of Normal (feet) Male % Predicted Total Duration Of The Stops (seconds) 210.31 690 1831.36 1329.36 37.7 -- _ Lowest SpO2 During 6 Minute Walk Pre-Pedro Dyspnea Rating Pre-Pdero Fatigue Rating Post Pedro Dyspnea Rating Post Pedro Fatigue Rating Walking Assistance/O2 Supply Carrier -- 0 0 0 0 Wheeled Walker Six Minute Walk Trend (Previous Encounters) None SIGNATURE: RUBIN Mccray PATIENT NAME: Denny Gomez DATE: May 16, 2025 TIME: 2:57 PM 6MINWALKTEST [facility] 04-29-2025 Note HNO ID: [id number] Author: KESHA BOONE APRN.OVEN BUILDER Service: ? Author Type: Nurse Specialist Type: Progress Notes Filed: 04/29/2025 14:19 Note Text: Denny Gomez is a 69 year old male here for a Medicare wellness visit. Medicare Health Risk Assessment General Health good Exercise: Minutes/Day walking 1 mile Exercise: Days/Week 3 Alcohol: Daily Use no Alcohol: Drinks/Day no Alcohol: 6 or more drinks no Feel off balance no Concerns: Teeth/Dentures none, no teeth or dentures Concerns: Sexual function no voiced concerns Troubled by feelings no Frequency: Eating healthy diet yes ADLs requiring help no Safety precautions in home/vehicle no Smoke, vape, chews tobacco quit 2 months ago with Chantix Difficulty hearing no Difficulty seeing no Current Providers Specialists: I have reviewed specialist-related care of the patient in the medical record. Dr.Gupta Jade Medical/Family history review Reviewed and updated problem list, medical/surgical/family/social history, medications, and allergies. Opioid use review Opioid Medications (last 90 days) No data to display Anxiety/Depression screening Recommendation: no further intervention at this time Cognitive screening Mini Cog Score: 3 Cognitive screening reviewed and No further action needed (score 3-5). Functional Observation Was the patient's Timed Up AND Go test unsteady or >= 12 seconds? No Advance Care Planning Surrogate decision maker and/or advance care plan documented Medicare Visit: - No hospitalizations or acute illnesses since last visit. - Denny Gomez denies falls, depression, anxiety, or memory issues. - No difficulty with ADLs or safety concerns at home. - No issues with hearing or vision; wears glasses for distance vision. - No difficulty rising from a chair. - Denny has a living will; is designated to make healthcare decisions if needed. - Denny denies current need for medication refills. Weight Loss: - Noted weight loss from 158 lbs to 150 lbs over the past year. - Denny consumes two meals per day, including breakfast (cereal or omelette sandwich) and a main meal (mixed vegetables and meat). - Denny denies poor appetite; believes he is eating well. - No use of protein shakes. - Denny denies recent illness or cough. - Engages in walking 2-3 times per day, 3 days per week, approximately 1 mile each time. - Denny denies significant alcohol consumption. - Denny denies issues with eating despite lack of teeth or dentures. Emphysema: - Under the care of Dr. Giron in pulmonology. - Recent CT chest in October showed stable lung nodules. Vision Loss: - History of glaucoma surgery in both eyes. - Vision loss in the right eye due to a "stroke" in the eye; partial vision recovery. - Under the care of Dr. Harrell in ophthalmology. Tobacco Use: - Former smoker, quit 2 months ago with the aid of Chantix. - Smoked for approximately 15 years, less than one pack per day. Urology: - Under the care of Dr. Rider in urology at [facility]. - Recent PSA levels checked and reported as normal. Measurements BP 112/74 Pulse 89 Resp 20 Ht 174.6 cm (5' 8.75") Wt 68.2 kg (150 lb 5.7 oz) SpO2 97% BMI 22.37 kg/m? Vision Screening: Right: 20/30 Left: 20/ 30 Both: 20/70 Latest Ref Rng 10/27/2024 Protein, Total 6.3 - 8.0 g/dL 7.1 Albumin 3.9 - 4.9 g/dL 4.6 Calcium 8.5 - 10.2 mg/dL 9.9 Bilirubin, Total 0.2 - 1.3 mg/dL 0.4 Alkaline Phosphatase 38 - 113 U/L 96 AST 14 - 40 U/L 24 ALT 10 - 54 U/L 24 Glucose 74 - 99 mg/dL 85 BUN 9 - 24 mg/dL 15 Creatinine 0.73 - 1.22 mg/dL 0.90 Sodium 136 - 144 mmol/L 141 Potassium 3.7 - 5.1 mmol/L 5.2 (H) Chloride 98 - 107 mmol/L 106 CO2 22 - 30 mmol/L 22 Anion Gap 8 - 15 mmol/L 13 eGFR >=60 mL/min/1.73m? 92 WBC 3.70 - 11.00 k/uL 9.17 RBC 4.20 - 6.00 m/uL 4.60 Hemoglobin 13.0 - 17.0 g/dL 14.8 Hematocrit 39.0 - 51.0 % 45.3 MCV 80.0 - 100.0 fL 98.5 MCH 26.0 - 34.0 pg 32.2 MCHC 30.5 - 36.0 g/dL 32.7 RDW-CV 11.5 - 15.0 % 12.0 Platelet Count 150 - 400 k/uL 200 MPV 9.0 - 12.7 fL 11.5 Absolute nRBC <0.01 k/uL <0.01 Magnesium 1.7 - 2.3 mg/dL 2.1 Vitamin D 25 Hydroxy 31.0 - 80.0 ng/mL 40.7 TSH 0.270 - 4.200 mIU/L 0.745 Free T4 0.9 - 1.7 ng/dL 1.2 Free T3 2.3 - 4.1 pg/mL 2.4 Assessment/Plan Medicare annual wellness visit, subsequent (Z00.00) - Counseled on healthy diet and regular exercise - Fall avoidance information provided - Personalized prevention plan provided 1. Medicare annual wellness visit, subsequent (Z00.) - No acute concerns reported. - Declined influenza vaccine due to prior adverse reaction. - Follow-up in 6 months. 2. 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 Adenocarcinoma of prostate (HCC) (C61) - Under care of Dr. Rider (Urology) at [facility]; recent PSA within normal limits. (more content not included)... [facility] 03-29-2025 Evaluation note Diagnosis Onset Date Resolution Carotid artery stenosis chronic A ugust 2024 2:40pm Essential hypertension chronic [place] 2024 2:40pm Hyperlipidemia chronic March 2:40pm Peripheral vascular disease chronic March 29 2:40pm Epidermal inclusion cyst acute May 20, 2025 10:15am Lipoma of forehead acute Octobe r 2024 10:15am Subcutaneous mass of back acute May 20 10:15am [place] [facility] [employer] MD Work Phone: [phone] Instructions* Patient Instructions* Massiel Harrell MD - 03/14/2025 1:55 PM EDT If you have any questions please contact our office at [phone]. After office hours or on the weekend, please call Dr. Harrell on his cell phone at [phone]. documented in this encounterPome[facility]08-11-[facility] NoteDate of Procedure 03/14/2025. Quality Right Eye Good. Left Eye Good. NFL Interpretation Right Eye Superior loss, Inferior loss. Left Eye Superior loss. Ganglion Cell Layer Thickness Right Eye Superior loss, Inferior loss, Temporal loss, Nasal loss. Left Eye Superior loss, Inferior loss, Temporal loss. Interval Change Right Eye Stable. Left Eye Stable.[id number] NoteHNO ID: [id number] Author: MASSIEL HARRELL MD Service: ? Author Type: Physician Type: Progress Notes Filed: 03/14/2025 13:55 Note Text: ASSESSMENT/PLAN: 1. Primary open angle glaucoma (POAG) of right eye, moderate stage - ICD9: 365.11, 365.72, ICD10: H40.1112 (primary diagnosis) 2. Primary open angle glaucoma (POAG) of left eye, moderate stage - ICD9: 365.11, 365.72, ICD10: H40.1122 Status Post Cataract Surgery with Monofocal Intraocular lens Implant, Canaloplasty with the Omni surgical system, and Hydrus Right Eye (09/26/2022) Status Post Cataract Surgery with Monofocal Intraocular lens Implant, Canaloplasty with the Omni surgical system, and Hydrus Left Eye (11/07/2022) Intraocular pressure stable with no glaucoma medications Return in 4 to 5 months Visual field/FP 3. Optic cupping of both eyes - ICD9: 377.14, ICD10: H47.233 Monitor 4. Homonymous hemianopsia, right - ICD9: 368.46, ICD10: H53.461 History of ischemic left MCA stroke History of Carotid endarterectomy a couple of years ago. I have confirmed and edited as necessary [...] questions about the findings, diagnosis, and treatment options.[facility]08-11-2025 History of Present illness Narrative* Massiel Harrell MD - 03/14/2025 1:44 PM EDT ASSESSMENT/PLAN: 1. Primary open angle glaucoma (POAG) of right eye, moderate stage - ICD9: 365.11, 365.72, ICD10: H40.1112 (primary diagnosis) 2. Primary open angle glaucoma (POAG) of left eye, moderate stage - ICD9: 365.11, 365.72, ICD10: H40.1122 Status Post Cataract Surgery with Monofocal Intraocular lens Implant, Canaloplasty with the Omni surgical system, and Hydrus Right Eye (09/26/2022) Status Post Cataract Surgery with Monofocal Intraocular lens Implant, Canaloplasty with the Omni surgical system, and Hydrus Left Eye (11/07/2022) Intraocular pressure stable with no glaucoma medications Return in 4 to 5 months Visual field/FP 3. Optic cupping of both eyes - ICD9: 377.14, ICD10: H47.233 Monitor 4. Homonymous hemianopsia, right - ICD9: 368.46, ICD10: H53.461 History of ischemic left MCA stroke History of Carotid endarterectomy a couple of years ago. I have confirmed and edited as necessary the relevant ophthalmic history, review of systems, surgical history, and ophthalmological examination findings as obtained by the ophthalmic technical staff.I have seen and examined Denny Gomez. I have discussed the examination findings, diagnosis, and treatment options with Denny Gomez and/or his family. I have also reviewed and agree with the assessment and plan as stated above and agree with all its relevant components. I gave the patient the opportunity to ask questions about the findings, diagnosis, and treatment options. documented in this encounterPomerene Hospital08-04-2025 Radiology Diagnostic study note [facility] Imaging Services [address] [place] [address] CTA Head W/WO Contrast MR#: [id number] Acct: [id number] Name: DENNY GOMEZ Rep #: [id number] : 1955 M 69 From: Blaine Naranjo MD PCP: Dr. Malu Rowe MD Status: RE G ER Study:CTA Head W/WO Contrast Date of Exam: 03/07/25 Exam# [id number] Ordering Dr: Oscar Gardner DO PROCEDURE: CTA HEAD W/WO CONTRAST 03/07/2025 REASON FOR EXAM: HEADACHE, HISTORY OF BRAIN ANEURYSM TECHNIQUE: CTA HEAD W/WO CONTRAST Multiplanar Sagittal and Coronal images were obtained. 3D post processing was performed CONTRAST: Isovue 370 VOLUME: 75 mL One or more dose reduction techniques were used (e.g., Automated exposure control, adjustment of the mA and/or kV according to patient size, use of iterative reconstruction technique). RADIATION DOSE SUMMARY: CTDlvol: 135 mGy DLP: 1985 mGycm COMPARISON: January 25, 2019 FINDINGS: Head CT: Brain: Encephalomalacia left occipital and parietal region. No acute hemorrhage is seen. No acute ischemia is seen. Extensive low-density in the periventricular white matter and deep white matter is seen. No midline shift or mass effect. No extra-axial fluid collection is seen. CT angiogram: [place] [facility] [place]: Patent, small caliber posterior communicating arteries are present bilaterally. Anuerysm or AVM: None Distal internal carotid arteries: Cavernous and supraclinoid internal carotid arteries with some mural plaque. Anterior cerebral arteries: Patent Middle cerebral arteries: Patent. Vertebral arteries: Right is dominant. Both are patent. Basilar artery: Patent Posterior cerebral arteries: Patent Other major branches of the posterior circulation: Patent Major venous structures: Patent Non-vascular findings: Some ossification of the midline falx. CT/CTA Head W/WO Contrast IMPRESSION: 1. No large vessel occlusion. 2. Atherosclerosis is present. No stenosis or aneurysm seen. 3. Extensive chronic microvascular ischemia. Encephalomalacia left occipital lobe and parietal lobe. No acute ischemia. Reading Location: [id number] CC: Dr. Oscar Beckford DO; Dr. Malu Rowe MD ~ Information Services Manager: Signed [facility]07-11-2025 Instructions* Patient Instructions* Moises Pendleton MD - 02/11/2025 9:30 AM EDT We discussed your chronic cough and COPD/emphysema: - Your chronic cough is related to your COPD/emphysema, which is caused by long- term smoking. Smoking has damaged the smallest units of your lungs (alveoli) and increased mucus production, leading toobstruction and difficulty breathing. - You should quit smoking to prevent further damage to your lungs. I recommend using nicotine gum (available over the counter) along with the prescription medication Chantix to help you quit. I have sent a prescription for Chantix to your pharmacy. If Chantix is too expensive, ask your pharmacist about Wellbutrin, and let me know if you need a prescription for that instead. - I am prescribing a maintenance inhaler, either Trelegy or Breztri, depending on what your insurance covers. This inhaler contains three medications to reduce inflammation, relax your airways, and improve breathing. Use it daily as directed, and note that it may take 3-4 months to see improvement.Wash your mouth thoroughly after each use to prevent thrush. - Continue using your rescue inhaler (albuterol) as needed for shortness of breath or wheezing. - A pulmonary function test (breathing test) is needed to assess your lung function. This can be done at a location closer to you in [place] with Dr. Caroline Johnson. The results will be sent to me, or Dr. Johnson can manage your care if you prefer. We discussed the lung nodules: - Your lung nodules are very small 2-3 mm(measuring in millimeters) and are considered low risk forlung cancer at this time. No immediate action is needed. - A follow-up CT scan of your lungs will be needed in one year to monitor the nodules. This can be ordered by Dr. Johnson if you choose to see her in [place]. Follow-up: - I will see you in 3 months to evaluate your progress with the inhaler and smoking cessation. - If you have any issues with the cost of medications, let your pharmacist know to find a cheaper alternative, and inform me so I can adjust your prescriptions. Please contact our office if you have any questions or concerns before your next visit. documented in this encounterPomerene Hospital07-11-2025 NoteHNO ID: [id number] Author: MOISES PENDLETON MD Service: ? Author Type: Physician Type: Progress Notes Filed: 02/11/2025 09:42 Note Text: [facility] [place] [facility] New Patient Consult Note SERVICE DATE: 01/18/2025 PRIMARY CARE PHYSICIAN: Malu Rowe MD Consultation requested by Malu Rowe MD for an opinion regarding Patient presents with: COPD . My final recommendations will be communicated back to the requesting physician by way of shared Medical record or letter to requesting physician via [place] mail. SUBJECTIVE CHIEF COMPLAINT: Lung nodule HPI: Denny Gomez is a 69 year old male here for lung nodule management. 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 Denny reports a chronic cough that has persisted for years, accompanied by the expectoration of clear sputum. He also experiences intermittent chest pain and tightness. He endorses wheezing but denies using inhalers consistently, stating that they "don't work." Denny has a history of smoking for over 40 years and continues to smoke, noting that smoking exacerbates his cough. He has not attempted any measures to alleviate the cough and believes that cessation of smoking would be beneficial. Denny is able to ambulate from his home to the parking lot without experiencing dyspnea. He spends most of his time at home watching TV but does engage in some walking. He denies any history of asthma. His brother also has COPD and is on oxygen therapy. PAST MEDICAL HISTORY Diagnosis Date Abnormal hemoglobin (Hgb) 04/07/2020 Hx: POD2 labs with drop in hemoglobin to 8.4 from baseline 10.6; transfused 1u PRBC POD2 A: asymptomatic, no associated tachycardia or hypotension P: f/u AM CBC Adenocarcinoma of prostate (HCC) 03/25/2023 Anxiety and depression BPH (benign prostatic hyperplasia) Carotid artery stenosis, asymptomatic, left COPD (chronic obstructive pulmonary disease) ([facility]) Critical lower limb ischemia ([facility]) Essential hypertension History: home Norvasc, lisinopril Assessment: MAP 65-85 mmHg with goals of normotension Plan: Resumed amlodipine, holding lisinopril Facial swelling 04/05/2020 Hx: facial swelling noted this morning A: no stridor or dysphagia P: Decadron 8mg q6 for 4 doses complete, facial swelling resolved Will continue to monitor Iliac artery injury, left, initial encounter 04/04/2020 History: post op, iliac rupture during OR Assessment: 04/04/2020 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 BP control . 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 History: Dulera and Fosamax at home Assessment: intubated and sedated Plan: can resume at dc Recurrent depressive disorder, in remission 02/26/2021 Stable on citalopram Stroke (cerebrum) ([facility]) Subdural hematoma (HCC) 2019 Unspecified essential hypertension [...] SUBCLAV NECK INC 02/16/2008 right CEA FAMILY HISTORY Problem Relation Age of Onset Heart Mother Glaucoma Brother Heart Brother Cancer Brother metastatic; no primary known PAST MEDICAL HISTORY Diagnosis Date Abnormal hemoglobin (Hgb) 04/07/2020 Hx: POD2 labs with drop in hemoglobin to 8.4 from baseline 10.6; transfused 1u PRBC POD2 A: asymptomatic, no associated tachycardia or hypotension P: f/u AM CBC Adenocarcinoma of prostate (HCC) 03/25/2023 Anxiety and depression BPH (benign prostatic hyperplasia) Carotid artery stenosis, asymptomatic, left COPD (chronic obstructive pulmonary disease) (HCC) Critical lower limb ischemia (HCC) Essential hypertension History: home Norvasc, lisinopril Assessment: MAP 65-85 mmHg with goals of normotension Plan: Resumed amlodipine, holding lisinopril Facial swelling 04/05/2020 Hx: facial swelling noted this morning A: no stridor or dysphagia P: Decadron 8mg q6 for 4 doses complete, facial swelling resolved Will continue to monitor Iliac artery injury, left, initial encounter 04/04/2020 History: post op, iliac rupture during OR Assessment: 04/04/2020 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 BP control . Intracerebral aneurysm (HCC) Legally bl (more content not included)...[facility]07-11-2025 History of Present illness Narrative* Moises Pendleton MD - 02/11/2025 9:02 AM EDT Images from the original note were not included. [facility] New Patient Consult Note SERVICE DATE: 01/18/2025 PRIMARY CARE PHYSICIAN: Malu Rowe MD Consultation requested by Malu Rowe MD for an opinion regarding Patient presents with: COPD . My final recommendations will be communicated back to the requesting physician by way of shared Medical record or letter to requesting physician via US mail. SUBJECTIVE CHIEF COMPLAINT: Lung nodule HPI: Denny Gomez is a 69 year old male here for lung nodule management. 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 Denny reports a chronic cough that has persisted for years, accompanied by the expectoration of clear sputum. He also experiences intermittent chest pain and tightness. He endorses wheezing but deniesusing inhalers consistently, stating that they "don't work." Denny has a history of smoking for over40 years and continues to smoke, noting that smoking exacerbates his cough. He has not attempted any measures to alleviate the cough and believes that cessation of smoking would be beneficial. Denny is able to ambulate from his home to the parking lot without experiencing dyspnea. He spends most of his time at home watching TV but does engage in some walking. He denies any history of asthma. His brother also has COPD and is on oxygen therapy. PAST MEDICAL HISTORY Diagnosis Date Abnormal hemoglobin (Hgb) 04/07/2020 Hx: POD2 labs with drop in hemoglobin to 8.4 from baseline 10.6; transfused 1u PRBC POD2 A: asymptomatic, no associated tachycardia or hypotension P: f/u AM CBC Adenocarcinoma of prostate (HCC) 03/25/2023 Anxiety and depression BPH (benign prostatic hyperplasia) Carotid artery stenosis, asymptomatic, left COPD (chronic obstructive pulmonary disease) (HCC) Critical lower limb ischemia (HCC) Essential hypertension History: home Norvasc, lisinopril Assessment: MAP 65-85 mmHg with goals of normotension Plan: Resumed amlodipine, holding lisinopril Facial swelling 04/05/2020 Hx: facial swelling noted this morning A: no stridor or dysphagia P: Decadron 8mg q6 for 4 doses complete, facial swelling resolved Will continue to monitor Iliac artery injury, left, initial encounter 04/04/2020 History: post op, iliac rupture during OR Assessment: 04/04/2020 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 BP control . 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 History: Dulera and Fosamax at home Assessment: intubated and sedated Plan: can resume at dc Recurrent depressive disorder, in remission 02/26/2021 Stable on citalopram Stroke (cerebrum) (HCC) Subdural hematoma (HCC) 2019 [...] SUBCLAV NECK INC 02/16/2008 right CEA FAMILY HISTORY Problem Relation Age of Onset Heart Mother Glaucoma Brother Heart Brother Cancer Brother metastatic; no primary known PAST MEDICAL HISTORY Diagnosis Date Abnormal hemoglobin (Hgb) 04/07/2020 Hx: POD2 labs with drop in hemoglobin to 8.4 from baseline 10.6; transfused 1u PRBC POD2 A: asymptomatic, no associated tachycardia or hypotension P: f/u AM CBC Adenocarcinoma of prostate (HCC) 03/25/2023 Anxiety and depression BPH (benign prostatic hyperplasia) Carotid artery stenosis, asymptomatic, left COPD (chronic obstructive pulmonary disease) (HCC) Critical lower limb ischemia (HCC) Essential hypertension History: home Norvasc, lisinopril Assessment: MAP 65-85 mmHg with goals of normotension Plan: Resumed amlodipine, holding lisinopril Facial swelling 04/05/2020 Hx: facial swelling noted this morning A: no stridor or dysphagia P: Decadron 8mg q6 for 4 doses complete, facial swelling resolved Will continue to monitor Iliac artery injury, left, initial encounter 04/04/2020 History: post op, iliac rupture during OR Assessment: 04/04/2020 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 BP control . 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 R. 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 History: Dulera and Fosamax at home Assessment: intubated and sedated Plan: can resume at dc Recurrent depressive disorder, in remission 02/26/2021 Stable on citalopram Stroke (cerebrum) (HCC) Subdural hematoma (HCC) 2019 [...] HISTORY Social History Tobacco Use Smoking status: Every Day Current packs/day: 0.25 Average packs/day: 0.3 packs/day for 55.5 years (13.9 ttl pk-yrs) Types: Cigarettes Start date: 1969 Smokeless tobacco: Never Vaping Use Vaping status: Never Used Substance Use Topics Alcohol use: Not Currently Drug use: Not Currently COMPLETE REVIEW OF SYSTEMS: REVIEW OF SYSTEMS 12 Point ROS done and negative except HPI. Patient Answered Questions: OBJECTIVE PHYSICAL EXAMINATION: VITAL SIGNS: BP 133/73 Pulse 66 Temp (Src) 98.6 (Temporal) Resp 18 Ht 5' 8" (1.73m) Wt 153 lb 7 oz (69.6kg) SpO2 99% BMI 23.34 kg/(m^2). General appearance- NAD, no conversational dyspnea. Ambulates without assistance Eyes: PERRLA; anicteric sclera, No conjunctival injection; No heliotrope rash. ENMT: Gross hearing intact. No oral ulcers. No oral thrush. Mallampati class 3 Neck: No palpable SARAH; No obvious goiter; No JVD Cardiovascular: RRR w/o murmurs Respiratory: Good bilateral air entry with no added sounds. No crackles, wheezes, or rhonchi. No accessory muscle use. Good effort. No kyphosis. Skin: No visible rashes, lesions, or subcutaneous nodules; No Gottron's papules; normal temperature Psychiatric: Alert and oriented x person, place and time; cooperative, appropriate affect Neurological: Gross sensation intact. EOMI, moving all extremities Musculoskeletal: No clubbing or cyanosis; No joint effusions, swelling or erythema; strength 5/5 throughout; normal tone Extremities: Peripheral pulses present; No edema DATA: Diagnostic tests reviewed for today's visit, films/specimens were personally reviewed by me: Labs: Latest Ref Rng & Units 12/31/2024 10/27/2024 04/29/2024 BMP Glucose 74 - 99 mg/dL 85 85 BUN 9 - 24 mg/dL 15 16 Creatinine 0.73 - 1.22 mg/dL 0.83 0.90 1.00 Sodium 136 - 144 mmol/L 141 142 Potassium 3.7 - 5.1 mmol/L 5.2 5.0 Chloride 98 - 107 mmol/L 106 105 CO2 22 - 30 mmol/L 22 24 Anion Gap 8 - 15 mmol/L 13 13 Calcium 8.5 - 10.2 mg/dL 9.9 10.1 EGFR >=60 mL/min/1.73m 94 92 81 Latest Ref Rng & Units 03/25/2023 04/29/2024 10/27/2024 CBC WBC 3.70 - 11.00 k/uL 8.81 9.31 9.17 RBC 4.20 - 6.00 m/uL 4.67 4.79 4.60 Hemoglobin 13.0 - 17.0 g/dL 15.3 15.7 14.8 Hematocrit 39.0 - 51.0 % 46.6 47.8 45.3 MCV 80.0 - 100.0 fL 99.8 99.8 98.5 MCH 26.0 - 34.0 pg 32.8 32.8 32.2 MCHC 30.5 - 36.0 g/dL 32.8 32.8 32.7 RDW-CV 11.5 - 15.0 % 11.9 11.9 12.0 Platelet Count 150 - 400 k/uL 227 238 200 MPV 9.0 - 12.7 fL 11.1 11.0 11.5 Baso% % 0.7 0.5 Abs Neut (ANC) 1.45 - 7.50 k/uL 5.36 6.35 Abs Lymph 1.00 - 4.00 k/uL 2.62 2.21 Abs Allen <0.87 k/uL 0.67 0.64 Abs Eosin <0.46 k/uL 0.07 <0.03 Abs Baso <0.11 k/uL 0.06 0.05 NRBC /100 WBC 0.0 0.0 Diagnostic Work Up: CT chest: Last CT/CTA Chest/Lungs CT CHEST WO IVCON Exam End: 11/01/2024 3:46 PM (Final result) Narrative: * * *Final Report* * * DATE OF EXAM: Nov 01 2024 3:46PM [facility] 0541 - CT CHEST WO IVCON / PROCEDURE REASON: Abnormality of lung on CXR * * * * Physician Interpretation * * * * EXAMINATION: CHEST CT WITHOUT CONTRAST CLINICAL HISTORY: Possible left pulmonary nodule on recent chest x-ray Technique: Spiral CT acquisition of the chest from the thoracic inlet to the upper abdomen without contrast. MQ: [id number] CT Radiation dose: Integrated Dose-length product (DLP) for this visit = 176 mGy*cm CT Dose Reduction Employed: Automated exposure control(AEC) and iterative recon Comparison: Chest x-ray dated 10/27/[address] chest dated 05/09/2017 RESULT: Limitations: None. Lines, tubes, and devices: None. Lung parenchyma and airways: No consolidation. Stable 2 to 3 mm right fissural-based groundglass nodule (7, 89) dictated back to 2017. Additional stable 2 mm left upper lobe subpleural nodule (5, 105) also dating back to 2017. No additional pulmonary nodule including in the left the lung identified. The central airways are patent. Pleural space: No pleural effusion. No pleural thickening. Lower neck, lymph nodes, and mediastinum: The imaged thyroid gland is normal. No lymphadenopathy in the supraclavicular, axillary, mediastinal, or hilar regions. Heart, pericardium, and thoracic vessels: There are scattered atherosclerotic calcifications of the visualized great vessels and thoracic aorta. The thoracic aorta and main pulmonary artery are normal in caliber. The cardiac chambers are normal in size. Coronary artery atherosclerotic calcifications are noted, although the study is not optimized for coronary assessment. No pericardial effusion or thickening. Bones and soft tissues: Degenerative changes. Upper abdomen: 6 cm right renal cyst. Few additional bilateral subcentimeter hypodense too small to characterize renal lesions. Atherosclerotic calcification of the vasculature. Localizer images: No additional findings. Impression: IMPRESSION: 1. Couple of stable 2 to 3 mm pulmonary nodules dating back to 2016. 2. No additional pulmonary nodules or suspect intrathoracic lymphadenopathy. Information Services Manager: TORY Transcribe Date/Time: Nov 10 2024 9:04A Dictated by : SHASHANK ALONZO MD This examination was interpreted and the report reviewed and electronically signed by: SHASHANK ALONZO MD on Nov 10 2024 9:19AM EST Chest xray: Heart echo: No results found for this or any previous visit (from the past 15894 hours). PFT: 05/09/2017 FVC 3.74 (101%) FEV1 2.48 (85%) FEV1/FVC 65% TLC 6.0 (92%) RV 2.47 (113%) RV/TLC 41% DLCO 18.00 (66%) Biopsy results: ASSESSMENT No problem-specific Assessment & Plan notes found for this encounter. 1. Centrilobular emphysema (HCC) - ICD9: 492.8, ICD10: J43.2 (primary diagnosis) 2. Nicotine dependence, cigarettes, uncomplicated - ICD9: 305.1, ICD10: F17.210 3. Pulmonary nodule - ICD9: 793.11, ICD10: R91.1 1. Centrilobular emphysema (HCC) (J43.2) Nicotine dependence, cigarettes, uncomplicated (F17.210) Chronic cough with clear sputum production, wheezing, and dyspnea on exertion consistent with COPD/emphysema. Patient has a significant smoking history of over 40 years. Previous inhaler use was ineffective. - Ordered repeat pulmonary function test to assess current lung function. - Initiated Trelegy inhaler, to be used daily; patient educated on the importance of consistent usefor at least 3 months before expecting improvement. - Prescribed albuterol inhaler for rescue use during episodes of severe dyspnea or wheezing. - Educated patient on the risks of continued smoking and the benefits of cessation. - Prescribed Chantix to aid in smoking cessation; advised patient to use nicotine gum concurrently. - Follow-up appointment scheduled in 3 months to assess response to treatment and review PFT results. 2. Pulmonary nodule (R91.1) Multiple small pulmonary nodules identified on CT scan from November 01, measuring approximately 2 mm. Nodules are considered low risk at this time. - Recommended follow-up CT scan in one year to monitor nodule size and characteristics. - Discussed findings and plan with patient and spouse; they understand and agree with the management plan. PLAN: Orders Placed This Encounter SPIROMETRY WITH DILATOR IF OBSTRUCTED Standing Status: Future Expiration Date: 03/13/2026 Scheduling Instructions: Please call to schedule, cancel, or change an appointment. Adults [phone] Pediatrics [phone] Should this patient be seen in a Pediatric Lab?: No LUNG DIFFUSION CAPACITY (DLCO) Standing Status: Future Expiration Date: 03/13/2026 Should this patient be seen in a Pediatric Lab?: No LUNG VOLUMES Standing Status: Future Expiration Date: 03/13/2026 Should this patient be seen in a Pediatric Lab?: No ADULT - SIX MINUTE WALK Standing Status: Future Expiration Date: 03/13/2026 Should this patient be seen in a Pediatric Lab?: No fvpdyeickoq-addsakoda-fztpqfrb (TRELEGY ELLIPTA) 200-62.5-25 mcg inhalation powder Sig: Inhale 1 puff as instructed once daily. Dispense: 60 each Refill: 11 albuterol HFA (PROVENTIL HFA, VENTOLIN HFA) 90 mcg/actuation inhaler Sig: Inhale 2 puffs as instructed every 6 hours as needed for wheezing/shortness of breath. Dispense: 18 g Refill: 11 Order Comments: Generic or brand: dispense inhaler preferred by patient/insurance unless CARMEN flag is selected. varenicline (CHANTIX) 1 mg tablet Sig: Take 0.5 tablets by mouth once daily for 3 days, THEN 0.5 tablets two times a day for 4 days, THEN 1 tablet two times a day for 23 days. Dispense: 52 tablet Refill: 0 varenicline (CHANTIX) 1 mg tablet Sig: Take 1 tablet by mouth two times a day. Patient should start on March 13, 2025. Dispense: 60 tablet Refill: 1 Return in about 3 months (around 05/14/2025). Copy to Referring physician Thank you for allowing me to participate in this patient's care. I spent a total of 47 minutes on the date of the service which included preparing to see the patient, [id number]-nwtv patient care, completing clinical documentation, obtaining and/or reviewing separately obtained history, performing a medically appropriate examination, counseling and educating the pat ient/family/caregiver, ordering medications, tests, or procedures, communicating with other HCPs (not separately reported), independently interpreting results (not separately reported), and communicating results to the patient/family/caregiver. Recording using [employer] software for draft documentation of the visit was discussed with the patient/authorized compliance representative; all questions welcomed and answered. Patient/authorized compliance representative agreed to proceed SIGNATURE: Moises Pendleton MD PATIENT NAME: Denny Gomez DATE: February 11, 2025 TIME: 9:39 AM PAGER/CONTACT #: [phone] [facility] Telephone encounter Note * Telephone Encounter - Lyn Matta RN - 01/26/2025 12:19 PM EDT Pt's called in and reported Pt needed a refill on Celexa. I let her know that provider sent cal years worth of refill on 10/27/24. I told her not to use the information on the bottle she had as it had 0 refills. I told her they probably hadn't used the new Rx and it was on hold. She was going to call pharmacy back. Lyn Matta RN [facility]06-[facility] Miscellaneous Notes* Telephone Encounter - Lyn Matta RN - 01/26/2025 12:19 PM EDT Pt's called in and reported Pt needed a refill on Celexa. I let her know that provider sent cal years worth of refill on 10/27/24. I told her not to use the information on the bottle she had as it had 0 refills. I told her they probably hadn't used the new Rx and it was on hold. She was going to call pharmacy back. Lyn Matta RN documented in this encounterPome[facility]06-11-2025 History of Present illness Narrative* Elias Rider MD - 01/12/2025 12:15 PM EDT Virtual or Telephone Consent An interactive audio and video telecommunication system which permits real time communications between the patient (at the originating site) and provider (at the distant site) was utilized to providethis telehealth service. Verbal consent was requested and obtained from Denny Gomez on this date, 01/12/25 for a telehealthvisit and the patient's location was confirmed at the time of the visit. (/Subjective Patient ID: Denny Gomez is a 69 y.o. male. HPI Hx of elevated PSA. Most recent PSA was 0.89 (12/26) Previous PSA was .44 on 04/27. Prior PSA was1.07 on 09/27. Prior PSA was 1.30 on 03/26. Prior PSA was 1.05 on 05/25. Prior PSA was 4.0 (11/23) Previous PSA was 1.86 on 05/24, prior was 1.86 (12/22) on Proscar since 10/22.. Normal MRI on 02/22. 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 Hx of gross hematuria but no recurrence in years. . Last cysto was on 05/26..... No recent sx. Chronic BPH sx are mild and stable. Some urgency and frequency. Flow is weak. Urge incontinence . Denies dysuria. Denies hematuria. Nocturia x1-2. . He is taking Flomax and proscar. Hx of hematuria. No recent sx. Normal cysto on 05/26. Renal US on 05/26 showed bilateral renal cysts. Recent Cr 12/26 was 0.83. Ed is chronic and not an issue Review of Systems Constitutional: Negative for chills and fever. HENT: Negative. Eyes: Negative. Respiratory: Negative for cough and shortness of breath. Cardiovascular: Negative for chest pain and leg swelling. Gastrointestinal: Negative for nausea. Endocrine: Negative. Genitourinary: Negative for difficulty urinating. Negative except for documented in HPI Allergic/Immunologic: Negative. Neurological: Alert & oriented X 3 Hematological: Denies blood thinners Psychiatric/Behavioral: Negative. Objective Physical Exam No PE done given the virtual nature of visit. Assessment/Plan Diagnoses and all orders for this visit: Erectile dysfunction, unspecified erectile dysfunction type Nocturia High prostate specific antigen (PSA) All available PSA values reviewed, Options discussed. Questions answered. Diet changes for prostate health discussed and educational information given. Pros/Cons of prostatehealth supplements discussed. Treatment options for LUTS reviewed Finasteride and Flomax Rx given Discussed timed voiding. Discussed fluid and caffeine intake Treatment options for ED reviewed-Observe Lifestyle change to help prevent UTIs discussed. Encouraged fluid intake. F/U 1 year with PSA [facility] Work Phone: [phone] Telephone encounter Note* Telephone Encounter - Constanza Delarosa RN - 01/04/2025 2:52 PM EDT Called and updated patient that Dr. Fang has not reviewed his imaging yet for his CT scan. Will reach back out to patient once scan is looked at by provider. Will forward to provider to review. Constanza Delarosa RN [facility]06-03-2025 Miscellaneous Notes* Telephone Encounter - Constanza Delarosa RN - 01/04/2025 2:52 PM EDT Called and updated patient that Dr. Fang has not reviewed his imaging yet for his CT scan. Will reach back out to patient once scan is looked at by provider. Will forward to provider to review. Constanza Delarosa RN * Telephone Encounter - Caitlyn Muñiz - 01/04/2025 2:07 PM EDT Patient calling again for CT results * Telephone Encounter - Layne Riggins - 01/04/2025 12:05 PM EDT CV PHONE Name of caller : Mrs. Gomez Relationship to patient : Spouse If not self Will need patient permission to release results or disclose health information with called documented in fyi. Patient identified by Name and Date of . ( Denny Gomez, 1955). Yes Number to return call [phone] Reason for Call: Results: Results Calling office requesting result of CT scan test, completed on 12-31-24. Please call patient back at number above. Thank you calling [facility]. You will receive a return call within 48hours ( or 2 business days if close to the weekend). If you feel that this is an urgent issue and needs immediate attention, it is recommended that you contact your primary care provider office or proceed to your nearest Urgent Care Center of Emergency Room ED for evaluation/treatment. documented in this encounterP[facility]06-03-2025 Telephone encounter Note * Telephone Encounter - Caitlyn Muñiz - 01/04/2025 2:07 PM EDT Patient calling again for CT results [facility] Tele[facility] encounter Note* Telephone Encounter - Layne Riggins - 01/04/2025 12:05 PM EDT CV PHONE Name of caller : Mrs. Gomez Relationship to patient : Spouse If not self Will need patient permission to release results or disclose health information with called documented in fyi. Patient identified by Name and Date of . ( Denny Gomez, 1955). Yes Number to return call [phone] Reason for Call: Results: Results Calling office requesting result of CT scan test, completed on 12-31-24. Please call patient back at number above. Thank you calling [facility]. You will receive a return call within 48hours ( or 2 business days if close to the weekend). If you feel that this is an urgent issue and needs immediate attention, it is recommended that you contact your primary care provider office or proceed to your nearest Urgent Care Center of Emergency Room ED for evaluation/treatment. [facility] Work Phone: [phone]) 131-284105-20-2025 NoteHNO ID: [id number] Author: Carolin FANG MD Service: ? Author Type: Physician Type: Progress Notes Filed: 12/23/2024 11:16 Note Text: CEREBROVASCULAR CENTER [facility] (Patient previously seen by me, but not since 03/2021) CEREBROVASCULAR HISTORY Denny Gomez is a 69 year old right-handed male. 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/2019 *H/o diffuse athero and L MCA strokes s/p L CEA 03/24/2020 --No symptoms from stroke post CEA; had PARMAR, so CTH completed showing acute-subacute L precentral infarcts and chronic SVID --Has know h/o diffuse athero and stenosis/athero carotid siphons along with cervical disease now s/p b/l CEAs --On DAPT + statin for PAD --Continues to have daily headache - was Rx'd Fioricet without much relief; describes his PARMAR as bi-temporooccipital and "pressure"; sometimes worse with chewing; no visual changes; no positional component 05/08/2020: --Underwent multiple vessel endart and stenting BLEs on 04/04/2020 and tolerated well --No new stroke S/Sx --HAs have completely resolved and filled GBP, but did not end up needing to take --Continues on DAPT + statin 03/13/2021: --Nothing new to report to us today; no new stroke S/Sx --Repeat CTA done today as below 12/21/2024: --Here as part of routine follow up for intra/extracranial athero, prior ICH and ischemic strokes. Had CTA 2020 also concerning for possible L ICA ophthalmic aneurysm vs athero but then never followed up with us. Had follow up with vascular surgery 2022 with CTA HANDN with appearance more c/w athero, but had seen vascular surgery recently and recommended to follow back up with us. --No new stroke S/Sx since our last visit --Reports bifrontal TTHs about 1d/month. 8/10 pain at worst and that pain will last 15-45min. Sleeping helps. No visual or other symptoms associated. Throbbing. 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 Anxiety and depression BPH (benign prostatic hyperplasia) Carotid artery stenosis, asymptomatic, left COPD (chronic obstructive pulmonary disease) ([facility]) Critical lower limb ischemia ([facility]) Essential hypertension History: home Norvasc, lisinopril Assessment: MAP 65-85 mmHg with goals of normotension Plan: Resumed amlodipine, holding lisinopril Facial swelling 04/05/2020 Hx: facial swelling noted this morning A: no stridor or dysphagia P: Decadron 8mg q6 for 4 doses complete, facial swelling resolved Will continue to monitor Iliac artery injury, left, initial encounter 04/04/2020 History: post op, iliac rupture during OR Assessment: 04/04/2020 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 BP control . 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 History: Dulera and Fosamax at home Assessment: intubated and sedated Plan: can resume at dc Recurrent depressive disorder, in remission 02/26/2021 Stable on citalopram Stroke (cerebrum) (HCC) Subdural hematoma (HCC) 2019 [...] SUBCLAV NECK INC 02/16/2008 right CEA FAMILY HISTORY Problem Relation Age of Onset Heart Mother Glaucoma Brother Heart Brother Cancer Brother metastatic; no primary known Social History Tobacco Use Smoking status: Every Day Current packs/day: 0.25 Average packs/day: 0.3 packs/day for 55.4 years (13.8 ttl pk-yrs) Types: Cigarettes Start date: 1970 Smokeless tobacco: Never Vaping Use Vaping status: Never Used Substance Use Topics Alcohol us (more content not included)...[facility]04-04-2025 Telephone encounter Note* Telephone Encounter - Nancy Benjamin - 11/05/2024 2:48 PM EDT ENDOVASCULAR INTAKE Patient name: Denny Gomez When was triage completed? November 05 What diagnosis are you looking to be seen for within our center? (ex: aneurysm, angioma, arteriovenous malformation, brain bleed or brain hemorrhage, cavernous malformation, carotid stenosis, fistula, Moy[place]oya, Vein of Prince, IIH or pseudotumor, etc.) Carotid aneurysm, left [I72.0] , 3.5mm Is there a specific provider who is requesting you see our center? (referring provider) Carlos A Kennedy MD in [facility] Has your referring provider recommended a specific provider in our department? No Is this a second opinion? Have you been recommended for surgery or procedure for this condition? Possibly a second opinion, aneurysm has been followed before. Not recommended for surgery/procedure. If yes, have you scheduled this procedure at another facility? If yes, when is the procedure scheduled? Where have you had any imaging for this diagnosis in the past year? These include images such as ultrasounds, MRIs, CTs, or angiograms of the head, brain, neck, carotids, or spine. [facility] in Chart Have you had any surgeries or procedures for this condition? No If yes, where was it done and when? Who performed the surgery or procedure? Does any of the following pertain to you? Family history of brain aneurysm? No (but family history of stroke) Polycystic kidney disease or other genetic kidney disease? Not applicable if chronic kidney disease. No Connective tissue disease such as fibromuscular dysplasia or Lisa-Danlos Syndrome? No Do you prefer in-person or virtual appointment? Out of state residents must be in [place] at the time of their virtual visit. In Person Specific day of the week or time of day? Any Time Do you prefer to be notified of your appointment by phone or Callystrohart message? Phone Call (Betsey spouse) Thank you for speaking with me today. Your information will now be forwarded to our endovascular advance practice provider team to review and provide scheduling recommendations. Please allow 3 business days to hear back from us. If you do not, feel free to call back [phone] for an update. [facility]04-04-2025 Miscellaneous Notes* Telephone Encounter - Nancy Benjamin - 11/05/2024 2:48 PM EDT ENDOVASCULAR INTAKE Patient name: Denny Gomez When was triage completed? November 05 What diagnosis are you looking to be seen for within our center? (ex: aneurysm, angioma, arteriovenous malformation, brain bleed or brain hemorrhage, cavernous malformation, carotid stenosis, fistula, [place], Vein of Prince, IIH or pseudotumor, etc.) Carotid aneurysm, left [I72.0] , 3.5mm Is there a specific provider who is requesting you see our center? (referring provider) Carlos A Kennedy MD in [facility] Has your referring provider recommended a specific provider in our department? No Is this a second opinion? Have you been recommended for surgery or procedure for this condition? Possibly a second opinion, aneurysm has been followed before. Not recommended for surgery/procedure. If yes, have you scheduled this procedure at another facility? If yes, when is the procedure scheduled? Where have you had any imaging for this diagnosis in the past year? These include images such as ultrasounds, MRIs, CTs, or angiograms of the head, brain, neck, carotids, or spine. [facility] in Chart Have you had any surgeries or procedures for this condition? No If yes, where was it done and when? Who performed the surgery or procedure? Does any of the following pertain to you? Family history of brain aneurysm? No (but family history of stroke) Polycystic kidney disease or other genetic kidney disease? Not applicable if chronic kidney disease. No Connective tissue disease such as fibromuscular dysplasia or Lisa-Danlos Syndrome? No Do you prefer in-person or virtual appointment? Out of state residents must be in [place] at the time of their virtual visit. In Person Specific day of the week or time of day? Any Time Do you prefer to be notified of your appointment by phone or Callystrohart message? Phone Call (Betsey spouse) Thank you for speaking with me today. Your information will now be forwarded to our endovascular advance practice provider team to review and provide scheduling recommendations. Please allow 3 business days to hear back from us. If you do not, feel free to call back [phone] for an update. [facility]04[facility] Telephone encounter Note * Telephone Encounter - Regla Adan RN - 11/05/2024 1:45 PM EDT Pt calling in for results of CXR. Notified of Dr. Rowe' response and instructions. In looking for CT scan order, pt already had CT completed on 11/01. [facility]04-04-2025 Miscellaneous Notes* Telephone Encounter - Regla Adan RN - 11/05/2024 1:45 PM EDT Pt calling in for results of CXR. Notified of Dr. Rowe' response and instructions. In looking for CT scan order, pt already had CT completed on 11/01. [facility] in [facility]04-[facility] Telephone encounter Note * Telephone Encounter - Regla Adan RN - 11/05/2024 1:44 PM EDT Pt called in and notified of results of labs and Dr. Rowe' information and instructions. [facility]04-04-2025 Miscellaneous Notes* Telephone Encounter - Regla Adan RN - 11/05/2024 1:44 PM EDT Pt called in and notified of results of labs and Dr. Rowe' information and instructions. * Telephone Encounter - Malu Rowe MD - 10/31/2024 5:42 PM EDT Labs are all normal except for potassium level was just slightly above normal at 5.2--no further evaluation or treatment needed for this. Would just avoid excess potassium intake, such as salt substitutes with potassium. documented in this encounterPome[facility] Hospital03-31-2025 History of Present illness Narrative* Layne Mario, RT(R) - 11/01/2024 3:20 PM EDT Radiology Service Progress Note PATIENT NAME: Denny Gomez DATE OF SERVICE: November 01, 2024 TIME: 3:47 PM PATIENT IDENTITY VERIFICATION COMPLETED USING TWO (2) IDENTIFIERS: Name and Date of confirmedby patient verbally. FALL SCREENING: Has the patient had 2 falls in the last year or 1 fall with injury or currently using an Ambulatory Assistive Device (Walker, Cane, Wheelchair, Crutches, etc.)? No PATIENT GENDER DATA: Assigned male at PATIENT RELEVANT IMPLANT DATA REVIEWED: Not Applicable PATIENT PRESENTS WITH AN IMPLANTABLE OR ATTACHED SENIOR SOFTWARE DEVELOPMENT MANAGER: No RADIOLOGY DEPARTMENT: CT; Exam(s) Completed: Chest PERIPHERAL IV DATA: Not applicable SIGNED BY: RT Kingsley(Allison) November 01, 2024 3:47 PM documented in this encounterPomerene Hospital03-31-2025 NoteHNO ID: [id number] Author: LAYNE MARIO RT(R) Service: ? Author Type: Biomass Boiler Operator Type: Progress Notes Filed: 11/01/2024 15:47 Note Text: Radiology Service Progress Note PATIENT NAME: Denny Gomez DATE OF SERVICE: November 01, 2024 TIME: 3:47 PM PATIENT IDENTITY VERIFICATION COMPLETED USING TWO (2) IDENTIFIERS: Name and Date of confirmed by patient verbally. FALL SCREENING: Has the patient had 2 falls in the last year or 1 fall with injury or currently using an Ambulatory Assistive Device (Walker, Cane, Wheelchair, Crutches, etc.)? No PATIENT GENDER DATA: Assigned male at PATIENT RELEVANT IMPLANT DATA REVIEWED: Not Applicable PATIENT PRESENTS WITH AN IMPLANTABLE OR ATTACHED SENIOR SOFTWARE DEVELOPMENT MANAGER: No RADIOLOGY DEPARTMENT: CT; Exam(s) Completed: Chest PERIPHERAL IV DATA: Not applicable SIGNED BY: RT Kingsley(Allison) November 01, 2024 3:47 [facility]03-31-2025 Telephone encounter Note* Telephone Encounter - Ritika Meza - 11/01/2024 10:57 AM EDT Spoke with patient and scheduled. Ritika Meza [facility]03-31-2025 Miscellaneous Notes* Telephone Encounter - Ritika Meza - 11/01/2024 10:57 AM EDT Spoke with patient and scheduled. Ritika Meza * Telephone Encounter - Zenobia Wiggins LPN - 11/01/2024 10:05 AM EDT Spoke with pt gave information provided. Pt voices understanding. Please assist with getting ct set up. * Telephone Encounter - Malu Rowe MD - 10/31/2024 5:51 PM EDT See lab result note. Labs okay. Only noted potassium slightly elevated so should avoid things like salt substitutes with potassium. From result note for CXR: No signs of pneumonia (no consolidation) There is a vague density that the radiologist cannot determine whether it is from overlapping structures or if something else is there, so recommended CT for complete evaluation. If patient agreeable, schedule CT scan as ordered. If wants to discuss first, can offer appointment. CT ordered for follow up on abnormal CXR. * Telephone Encounter - Agapito Cutler LPN - 10/29/2024 9:19 AM EDT Pt calling for results of chest x-ray and labs. Pt had ov with pcp 10/27/24 please advise. Agapito Shaw LPN documented in this encounterPomerene Hospital03-31-2025 Telephone encounter Note * Telephone Encounter - Zenobia Wiggins LPN - 11/01/2024 10:05 AM EDT Spoke with pt gave information provided. Pt voices understanding. Please assist with getting ct set up. [facility]03-30-2025 Telephone encounter Note* Telephone Encounter - Malu Rowe MD - 10/31/2024 5:51 PM EDT See lab result note. Labs okay. Only noted potassium slightly elevated so should avoid things like salt substitutes with potassium. From result note for CXR: No signs of pneumonia (no consolidation) There is a vague density that the radiologist cannot determine whether it is from overlapping structures or if something else is there, so recommended CT for complete evaluation. If patient agreeable, schedule CT scan as ordered. If wants to discuss first, can offer appointment. CT ordered for follow up on abnormal CXR. [facility]03-30-2025 Telephone encounter Note* Telephone Encounter - Malu Rowe MD - 10/31/2024 5:42 PM EDT Labs are all normal except for potassium level was just slightly above normal at 5.2--no further evaluation or treatment needed for this. Would just avoid excess potassium intake, such as salt substitutes with potassium. [facility]03-28-2025 Telephone encounter Note* Telephone Encounter - Agapito Cutler LPN - 10/29/2024 9:19 AM EDT Pt calling for results of chest x-ray and labs. Pt had ov with pcp 10/27/24 please advise. Agapito Shaw LPN [facility]03-26-2025 History of Present illness Narrative* Vernell Stoddard Tech - 10/27/2024 3:50 PM EDT Radiology Service Progress Note PATIENT NAME: Denny Gomez DATE OF SERVICE: October 27, 2024 TIME: 3:31 PM PATIENT IDENTITY VERIFICATION COMPLETED USING TWO (2) IDENTIFIERS: Name and Date of confirmedby patient verbally. FALL SCREENING: Has the patient had 2 falls in the last year or 1 fall with injury or currently using an Ambulatory Assistive Device (Walker, Cane, Wheelchair, Crutches, etc.)? No PATIENT GENDER DATA: Assigned male at PATIENT RELEVANT IMPLANT DATA REVIEWED: Not Applicable PATIENT PRESENTS WITH AN IMPLANTABLE OR ATTACHED SENIOR SOFTWARE DEVELOPMENT MANAGER: No RADIOLOGY DEPARTMENT: General X-ray: Exam(s) Completed: Chest X-Ray PERIPHERAL IV DATA: Not applicable SIGNED BY: Brittny Shirley October 27, 2024 3:31 PM documented in this encounterPomerene Hospital03-26-2025 NoteHNO ID: [id number] Author: VERNELL STODDARD Tech Service: ? Author Type: Technologist Type: Progress Notes Filed: 10/27/2024 15:41 Note Text: Radiology Service Progress Note PATIENT NAME: Denny Gomez DATE OF SERVICE: October 27, 2024 TIME: 3:31 PM PATIENT IDENTITY VERIFICATION COMPLETED USING TWO (2) IDENTIFIERS: Name and Date of confirmed by patient verbally. FALL SCREENING: Has the patient had 2 falls in the last year or 1 fall with injury or currently using an Ambulatory Assistive Device (Walker, Cane, Wheelchair, Crutches, etc.)? No PATIENT GENDER DATA: Assigned male at PATIENT RELEVANT IMPLANT DATA REVIEWED: Not Applicable PATIENT PRESENTS WITH AN IMPLANTABLE OR ATTACHED SENIOR SOFTWARE DEVELOPMENT MANAGER: No RADIOLOGY DEPARTMENT: General X-ray: Exam(s) Completed: Chest X-Ray PERIPHERAL IV DATA: Not applicable SIGNED BY: Brittny Shirley October 27, 2024 3:31 [facility]03-26-2025 Instructions* Patient Instructions* Malu Rowe MD - 10/27/2024 3:09 PM EDT - Continue taking your current medications: rosuvastatin, citalopram, amlodipine, and vitamin D 5000 IU daily. - Increase your caloric intake to prevent further weight loss. Try to eat more frequent, smaller meals and snacks throughout the day. Focus on high-calorie, nutrient-dense foods such as meats, dairy products, and carbohydrates like bread, pasta, and rice. - Drink water between meals rather than before or during meals to avoid feeling too full to eat. - Consider high-calorie drinks like milkshakes or nutritional supplements like [place] Instant Breakfast if you have difficulty increasing your food intake. - Complete the chest X-ray as scheduled to check for any lung issues. - Complete the lab tests for thyroid function, metabolic panel, and blood counts as scheduled. - Monitor your cough and report any worsening or new symptoms such as shortness of breath. - If you need help quitting smoking, let us know. We can provide support and resources to help you quit. - Next follow-up appointment in 6 months. documented in this encounterPomerene Hospital03-26-2025 NoteHNO ID: [id number] Author: MALU ROWE MD Service: ? Author Type: Physician Type: Progress Notes Filed: 10/27/2024 15:11 Note Text: This note was created using [employer]. Subjective Denny Gomez is a 69 year old male. Patient presents with: F/U 6 months: is a smoker and would like to have chest checked SUBJECTIVE: Denny Gomez is a 69 year old year old gentleman here today for 6 month follow up appointment for review of medical conditions. Denny is a 69-year-old male, with a history of smoking, presenting for a 6-month follow-up and concerns about weight loss. Denny reports gradual weight loss since last year, with a current weight of 153 lbs, down from a previous weight of 160 lbs. He notes fluctuations in weight, with a recorded high of 167 lbs and a low of 148 lbs in 2016. He denies any changes in diet or activity level corresponding with the weight loss, stating he eats "good" and maintains a consistent eating pattern of two meals a day, sometimes one. He denies intentionally trying to lose weight and does not attempt to increase meal size to gain weight, as he feels "yucky" if he eats too much. He denies any changes in vision, fevers, chills, constipation, diarrhea, dysuria, hematuria, or hematochezia. He also denies any exacerbation of arthritis symptoms. Denny has a smoking history of a quarter pack per day for 15 years, starting at age 15 in 1970. He denies any increase in smoking beyond a quarter pack per day, except occasionally when upset. He denies hemoptysis, chest pain, or dyspnea, and is able to maintain his usual activities without needing to slow down or stop. He has a history of a chronic cough, which he attributes to smoking. He is not currently using Dulera or albuterol inhalers frequently. Denny is currently taking rosuvastatin, citalopram, amlodipine, Flomax, ProScar, and vitamin D 5000 IU daily. He has discontinued calcium supplements. He expresses a desire to have his prescriptions filled for a 90-day supply. PAST MEDICAL HISTORY Diagnosis Date Abnormal hemoglobin (Hgb) ([facility]) 04/07/2020 Hx: POD2 labs with drop in hemoglobin to 8.4 from baseline 10.6; transfused 1u PRBC POD2 A: asymptomatic, no associated tachycardia or hypotension P: f/u AM CBC Adenocarcinoma of prostate ([facility]) 03/25/2023 Anxiety and depression BPH (benign prostatic hyperplasia) Carotid artery stenosis, asymptomatic, left COPD (chronic obstructive pulmonary disease) ([facility]) Critical lower limb ischemia ([facility]) Essential hypertension History: home Norvasc, lisinopril Assessment: MAP 65-85 mmHg with goals of normotension Plan: Resumed amlodipine, holding lisinopril Facial swelling 04/05/2020 Hx: facial swelling noted this morning A: no stridor or dysphagia P: Decadron 8mg q6 for 4 doses complete, facial swelling resolved Will continue to monitor Iliac artery injury, left, initial encounter 04/04/2020 History: post op, iliac rupture during OR Assessment: 04/04/2020 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 BP control . 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 finasteride (PROSCAR) 5 mg tablet Take 5 mg by mouth once daily. tamsulosin (FLOMAX) 0.4 mg Take 0.4 mg by mouth once daily. mometasone-formoterol (DULERA) 100-5 mcg/actuation inhaler Inhale 2 Puffs as instructed twice daily. rosuvastatin (CRESTOR) 40 mg tablet Take 1 tablet by mouth once daily. citalopram (CELEXA) 40 mg tablet Take 1 tablet by mouth once daily. amLODIPine (NORVASC) 5 mg tablet Take 1 tablet by mouth once daily. albuterol HFA (PROAIR HFA) 90 mcg/actuation inhaler Inhale 2 Puffs as instructed every 4 hours as needed for up to 15 days. No current facility-administered medications for this visit. Review of Systems Objective BP 113/73 Pulse 67 Wt 69.6 kg (153 lb 7 oz) SpO2 98% BMI 23.33 kg/m? Physical Exam Latest Ref Rng 03/25/2023 03/26/2023 07/03/2023 11/13/2023 04/29/2024 WBC 3.70 - 11.00 k/uL 8.81 9.31 RBC 4.20 - 6.00 m/uL 4.67 4.79 Hemoglobin 13.0 - 17.0 g/dL 15.3 15.7 Hematocrit 39.0 - 51.0 % 46.6 47.8 MCV 80.0 - 100.0 fL 99.8 99.8 MCH 26.0 - 34.0 pg 32.8 32.8 MCHC 30.5 - 36.0 g/dL 32.8 32.8 RDW-CV 11.5 - 15.0 % 11.9 11.9 Platelet Count 150 - 400 k/uL 227 238 MPV 9.0 - 12.7 fL 11.1 11.0 Neut% % 60.9 68.3 Abs Ne (more content not included)...[facility]03-26-2025 History of Present illness Narrative* Malu Rowe MD - 10/27/2024 2:49 PM EDT Images from the original note were not included. This note was created using [employer]. Subjective Denny Gomez is a 69 year old male. Patient presents with: F/U 6 months: is a smoker and would like to have chest checked SUBJECTIVE: Denny Gomez is a 69 year old year old gentleman here today for 6 month follow up appointment for review of medical conditions. Denny is a 69-year-old male, with a history of smoking, presenting for a 6-month follow-up and concerns about weight loss. Denny reports gradual weight loss since last year, with a current weight of 153 lbs, down from a previous weight of 160 lbs. He notes fluctuations in weight, with a recorded high of 167 lbs and a low of 148 lbs in 2016. He denies any changes in diet or activity level corresponding with the weight loss, stating he eats "good" and maintains a consistent eating pattern of two meals a day, sometimes one. He denies intentionally trying to lose weight and does not attempt to increase meal size to gainweight, as he feels "yucky" if he eats too much. He denies any changes in vision, fevers, chills, constipation, diarrhea, dysuria, hematuria, or hematochezia. He also denies any exacerbation of arthri tis symptoms. Denny has a smoking history of a quarter pack per day for 15 years, starting at age 15 in 1970. He denies any increase in smoking beyond a quarter pack per day, except occasionally when upset. He denies hemoptysis, chest pain, or dyspnea, and is able to maintain his usual activities without needing to slow down or stop. He has a history of a chronic cough, which he attributes to smoking. He is notcurrently using Dulera or albuterol inhalers frequently. Denny is currently taking rosuvastatin, citalopram, amlodipine, Flomax, ProScar, and vitamin D 5000 IU daily. He has discontinued calcium supplements. He expresses a desire to have his prescriptions filled for a 90-day supply. PAST MEDICAL HISTORY Diagnosis Date Abnormal hemoglobin (Hgb) (HCC) 04/07/2020 Hx: POD2 labs with drop in hemoglobin to 8.4 from baseline 10.6; transfused 1u PRBC POD2 A: asymptomatic, no associated tachycardia or hypotension P: f/u AM CBC Adenocarcinoma of prostate ([facility]) 03/25/2023 Anxiety and depression BPH (benign prostatic hyperplasia) Carotid artery stenosis, asymptomatic, left COPD (chronic obstructive pulmonary disease) ([facility]) Critical lower limb ischemia ([facility]) Essential hypertension History: home Norvasc, lisinopril Assessment: MAP 65-85 mmHg with goals of normotension Plan: Resumed amlodipine, holding lisinopril Facial swelling 04/05/2020 Hx: facial swelling noted this morning A: no stridor or dysphagia P: Decadron 8mg q6 for 4 doses complete, facial swelling resolved Will continue to monitor Iliac artery injury, left, initial encounter 04/04/2020 History: post op, iliac rupture during OR Assessment: 04/04/2020 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 BP control . 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 finasteride (PROSCAR) 5 mg tablet Take 5 mg by mouth once daily. tamsulosin (FLOMAX) 0.4 mg Take 0.4 mg by mouth once daily. mometasone-formoterol (DULERA) 100-5 mcg/actuation inhaler Inhale 2 Puffs as instructed twice daily. rosuvastatin (CRESTOR) 40 mg tablet Take 1 tablet by mouth once daily. citalopram (CELEXA) 40 mg tablet Take 1 tablet by mouth once daily. amLODIPine (NORVASC) 5 mg tablet Take 1 tablet by mouth once daily. albuterol HFA (PROAIR HFA) 90 mcg/actuation inhaler Inhale 2 Puffs as instructed every 4 hours as needed for up to 15 days. No current facility-administered medications for this visit. Review of Systems Objective BP 113/73 Pulse 67 Wt 69.6 kg (153 lb 7 oz) SpO2 98% BMI 23.33 kg/m Physical Exam Latest Ref Rng 03/25/2023 03/26/2023 07/03/2023 11/13/2023 04/29/2024 WBC 3.70 - 11.00 k/uL 8.81 9.31 RBC 4.20 - 6.00 m/uL 4.67 4.79 Hemoglobin 13.0 - 17.0 g/dL 15.3 15.7 Hematocrit 39.0 - 51.0 % 46.6 47.8 MCV 80.0 - 100.0 fL 99.8 99.8 MCH 26.0 - 34.0 pg 32.8 32.8 MCHC 30.5 - 36.0 g/dL 32.8 32.8 RDW-CV 11.5 - 15.0 % 11.9 11.9 Platelet Count 150 - 400 k/uL 227 238 MPV 9.0 - 12.7 fL 11.1 11.0 Neut% % 60.9 68.3 Abs Neut (ANC) 1.45 - 7.50 k/uL 5.36 6.35 Lymph% % 29.7 23.7 Abs Lymph 1.00 - 4.00 k/uL 2.62 2.21 Allen% % 7.6 6.9 Abs Allen <0.87 k/uL 0.67 0.64 Eosin% % 0.8 0.2 Abs Eosin <0.46 k/uL 0.07 <0.03 Baso% % 0.7 0.5 Abs Baso <0.11 k/uL 0.06 0.05 Immature Gran % % 0.3 0.4 IMMATURE GRANS (ABS) <0.10 k/uL 0.03 0.04 NRBC /100 WBC 0.0 0.0 Absolute nRBC <0.01 k/uL <0.01 <0.01 DTYPE Auto Auto Protein, Total 6.3 - 8.0 g/dL 7.0 6.9 7.4 Albumin 3.9 - 4.9 g/dL 4.6 4.3 4.7 Calcium 8.5 - 10.2 mg/dL 9.9 10.2 10.1 Bilirubin, Total 0.2 - 1.3 mg/dL 0.4 0.4 0.5 Alkaline Phosphatase 38 - 113 U/L 220 (H) 221 (H) 83 AST 14 - 40 U/L 25 18 24 ALT 10 - 54 U/L 37 21 38 Glucose 74 - 99 mg/dL 81 109 (H) 85 BUN 9 - 24 mg/dL 12 18 16 Creatinine 0.73 - 1.22 mg/dL 0.90 0.80 1.00 Sodium 136 - 144 mmol/L 140 139 142 Potassium 3.7 - 5.1 mmol/L 4.9 4.1 5.0 Chloride 98 - 107 mmol/L 106 (H) 107 (H) 105 CO2 22 - 30 mmol/L 27 24 24 Anion Gap 8 - 15 mmol/L 7 (L) 8 (L) 13 eGFR >=60 mL/min/1.73m 93 96 81 Cholesterol, Total <200 mg/dL 199 Triglyceride <150 mg/dL 81 HDL Cholesterol >39 mg/dL 95 Non HDL Cholesterol <130 mg/dL 104 Fasting Time hrs 12 VLDL Cholesterol <30 mg/dL 16 TC:HDL Ratio <5.10 2.09 LDL Cholesterol <100 mg/dL 88 LDL:HDL Ratio <2.54 0.93 Hemoglobin A1C 4.3 - 5.6 % 4.9 Estimated Average Glucose mg/dL 94 Occult Blood, Stool Negative Negative TSH 0.270 - 4.200 mIU/L 0.425 0.460 PSA Screening <2.60 ng/mL 1.30 2.44 Vitamin D 25 Hydroxy 31.0 - 80.0 ng/mL 42.1 46.7 Cortisol 4.8 - 19.5 ug/dL 22.9 (H) ACTH 7.2 - 63.3 pg/mL 48.5 GGT 10 - 70 U/L 47 Alpha 1 Antitrypsin 90 - 200 mg/dL 160 Legend: (H) High (L) Low Assessment and Plan # Chronic cough (R05.3) - No acute symptoms of hemoptysis, chest pain, or dyspnea; lung auscultation reveals no crackles orwheezes. - Ordered chest X-ray to evaluate for any underlying pulmonary pathology. - Patient to follow up based on X-ray findings. # Weight loss (R63.4) - Gradual weight loss noted over the past year, with current weight at 153 lbs, down from a high of167 lbs. - No significant changes in diet or activity level reported; patient consumes two meals per day. - Previous labs from April were normal, but TSH was on the lower end. - Ordered comprehensive metabolic panel and CBC to assess for anemia and nutritional status. - Ordered thyroid function tests including TSH, T4, and T3 to rule out hyperthyroidism. - Advised patient to increase caloric intake with high-calorie, low-volume foods and snacks. - Recommended drinking calories if unable to increase food volume, such as [place] Instant Breakfast or milkshakes. - Follow-up appointment scheduled in 6 months to monitor weight and lab results. # Vitamin D deficiency (E55.9) - Patient is currently taking Vitamin D 5000 IU daily. - Reinforced the importance of maintaining adequate Vitamin D levels for metabolism and weight management. - Ordered Vitamin D level to ensure therapeutic levels are maintained. # Smoker unmotivated to quit (F17.200) - Smoking history of 0.25 pack per day for 15 years, totaling 13.8 pack years. - Discussed risks associated with smoking and benefits of cessation. - Patient expresses anxiety and worry as barriers to quitting. - Provided education on nicotine addiction and available cessation aids such as patches, gums, and lozenges. - Encouraged patient to consider smoking cessation and offered support through pharmacy services ifneeded. Malu Rowe MD documented in this encounterP[facility]02-[facility]25 Telephone encounter Note * Telephone Encounter - Estee Carmen LPN - 09/28/2024 8:24 AM EST Patient notified, verbalized understanding. Estee Carmen LPN [facility]02-[facility] Telephone encounter Note* Telephone Encounter - Estee Carmen LPN - 09/28/2024 8:24 AM EST ----- Message from Art Donovan MD sent at 09/28/2024 7:30 AM EST ----- Negative viral panel. [facility]02-[facility] Miscellaneous Notes* Telephone Encounter - Estee Carmen LPN - 09/28/2024 8:24 AM EST Patient notified, verbalized understanding. Estee Carmen LPN * Telephone Encounter - Estee Carmen LPN - 09/28/2024 8:24 AM EST ----- Message from Art Donovan MD sent at 09/28/2024 7:30 AM EST ----- Negative viral panel. * Telephone Encounter - Estee Carmen LPN - 09/28/2024 8:20 AM EST ----- Message from Art Donovan MD sent at 09/28/2024 7:30 AM EST ----- Negative viral panel. documented in this encounterPomerene [facility]02-25-2025 Telephone encounter Note * Telephone Encounter - Estee Carmen LPN - 09/28/2024 8:20 AM EST ----- Message from Art Donovan MD sent at 09/28/2024 7:30 AM EST ----- Negative viral panel. [facility]02-24-[facility]25 [id number] (AGENT OF COVID-19) RNA: Not detected INFLUENZA A RNA: Not detected INFLUENZA B RNA: Not detected RESPIRATORY SYNCYTIAL VIRUS (RSV) RNA: Not detectedUniversity Hospitals Lake West Medical CenterComment on above:Performed By: #### [id number] ####[facility] LABCLIA [id number] [place] [id number] [id number] [place] [id number] Instructions* Patient Instructions* Art Donovan MD - 09/27/2024 7:49 PM EST You have a viral illness for which antibiotics are not recommended. Viral illnesses, like a cold, resolve on their own, unless a secondary infection occurs. You need rest, fluids, and over the counter medications for symptoms. If prescribed a medication for a specific viral infection, start this immediately. Call us if symptoms worsen, persist, or if you have new symptoms in several days. Preventing the Spread of Respiratory Viruses Stay home and away from others if you have respiratory virus symptoms... You can go back to your normal activities when for for at least 24 hours, both are true: 1. Your symptoms are getting better overall, AND 2. You have not had a fever (and are not using fever-reducing medications). When you go back to normal activities, take added precautions over the next 5 days, such as taking additions steps for ultrasonic cleaner air, hygiene, masks, physical distancing, and or testing when you will be around other people indoors. For more information go to https://www.cdc.gov/respiratory-viruses/prevention/index.html documented in this encounterPomerene Hospital02-24-2025 NoteHNO ID: [id number] Author: ART DONOVAN MD Service: ? Author Type: Physician Type: Progress Notes Filed: 09/27/2024 20:07 Note Text: This note was created using [employer]. Subjective Patient presents with: Cough Nasal Congestion Denny Gomez is a 69 year old male with above symptoms that started today. He was here with his , who started having upper respiratory infection symptoms yesterday. He had no other concerns. Review of Systems Constitutional: Negative for chills and fever. HENT: Positive for congestion. Negative for ear pain and sore throat. Respiratory: Positive for cough. Negative for shortness of breath and wheezing. Gastrointestinal: Negative for diarrhea, nausea and vomiting. Neurological: Negative for headaches. ACTIVE PROBLEM LIST Anxiety and Depression Mixed Hyperlipidemia Essential Hypertension Paget's Bone Disease Elevated Psa, Less Than 10 Ng/Ml History of Cerebral Hemorrhage Vision Loss, Bilateral Homonymous Hemianopsia, Right Ocular Hypertension, Bilateral Optic Cupping of Both Eyes Bilateral Carotid Artery Stenosis Pad (Peripheral Artery Disease) ([facility]) S/P Carotid Endarterectomy H/O Ischemic Left Mca Stroke Intracranial Atherosclerosis Atherosclerosis of [place] Artery of Extremity With Intermittent Claudication ([facility]) Vitamin D Deficiency Primary Open Angle Glaucoma (Poag) of Right Eye, Moderate Stage Primary Open Angle Glaucoma (Poag) of Left Eye, Moderate Stage Hypercholesteremia Status Post Cataract Extraction and Insertion of Intraocular Lens of Left Eye Status Post Cataract Extraction and Insertion of Intraocular Lens of Right Eye Aortoiliac Occlusive Disease ([facility]) 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 citalopram (CELEXA) 40 mg tablet Take 1 tablet by mouth once daily. amLODIPine (NORVASC) 5 mg tablet Take 1 tablet by mouth once daily. rosuvastatin (CRESTOR) 40 mg tablet Take 1 tablet by mouth once daily. finasteride (PROSCAR) 5 mg tablet Take 5 mg by mouth once daily. tamsulosin (FLOMAX) 0.4 mg Take 0.4 mg by mouth once daily. mometasone-formoterol (DULERA) 100-5 mcg/actuation inhaler Inhale 2 Puffs as instructed twice daily. albuterol HFA (PROAIR HFA) 90 mcg/actuation inhaler Inhale 2 Puffs as instructed every 4 hours as needed for up to 15 days. zoledronic acid/mannitol-water (RECLAST INTRAVENOUS) Inject 1 Each intravenously every year. Last infusion: 11/13/2023 (Patient not taking: Reported on 07/19/2024) calcium carbonate/vitamin D3 (CALCIUM 600 + D,3, ORAL) Take 1 tablet by mouth once daily. (Patient not taking: Reported on 07/19/2024) calcium carbonate-vitamin D3 1,000 mg-20 mcg (800 unit) tab Take 1 tablet by mouth once daily. (Patient not taking: Reported on 04/30/2024) trospium (SANCTURA) 20 mg tablet Take 20 mg by mouth twice daily. (Patient not taking: Reported on 04/30/2024) No current facility-administered medications for this visit. Objective BP 116/62 (BP Site: Left Arm, BP Position: Sitting, BP Cuff Size: Large Adult) Pulse 67 Temp 36.9 ?C (98.5 ?F) (Temporal) Wt 70.5 kg (155 lb 6.8 oz) BMI 23.63 kg/m? Physical Exam Constitutional: General: He is not in acute distress. Appearance: He is not ill-appearing. HENT: Right Ear: Tympanic membrane normal. Left Ear: Tympanic membrane normal. Nose: Congestion present. No rhinorrhea. Mouth/Throat: Mouth: Mucous membranes are moist. Pharynx: Oropharynx is clear. Eyes: Conjunctiva/sclera: Conjunctivae normal. Cardiovascular: Rate and Rhythm: Normal rate and regular rhythm. Pulmonary: Effort: No respiratory distress. Breath sounds: No wheezing, rhonchi or rales. Lymphadenopathy: Cervical: No cervical adenopathy. Neurological: Mental Status: He is alert. Assessment and Plan 1. Acute cough - ICD9: 786.2, ICD10: R05.1 (primary diagnosis) See printed instructions or information. Further recommendations will depend on results. - COVID AND INFLUENZA A/B AND RSV PCR, ROUTINE 2. Chronic obstructive pulmonary disease, unspecified COPD type (HCC) - ICD9: 496, ICD10: J44.9 Stable. Art Donovan [facility]02-24-2025 History of Present illness Narrative* Art Donovan MD - 09/27/2024 7:47 PM EST This note was created using NoteWriter. Subjective Patient presents with: Cough Nasal Congestion Denny Gomez is a 69 year old male with above symptoms that started today. He was here with his , who started having upper respiratory infection symptoms yesterday. He had no other concerns. Review of Systems Constitutional: Negative for chills and fever. HENT: Positive for congestion. Negative for ear pain and sore throat. Respiratory: Positive for cough. Negative for shortness of breath and wheezing. Gastrointestinal: Negative for diarrhea, nausea and vomiting. Neurological: Negative for headaches. ACTIVE PROBLEM LIST Anxiety and Depression Mixed Hyperlipidemia Essential Hypertension Paget's Bone Disease Elevated Psa, Less Than 10 Ng/Ml History of Cerebral Hemorrhage Vision Loss, Bilateral Homonymous Hemianopsia, Right Ocular Hypertension, Bilateral Optic Cupping of Both Eyes Bilateral Carotid Artery Stenosis Pad (Peripheral Artery Disease) ([facility]) S/P Carotid Endarterectomy H/O Ischemic Left Mca Stroke Intracranial Atherosclerosis Atherosclerosis of [place] Artery of Extremity With Intermittent Claudication ([facility]) Vitamin D Deficiency Primary Open Angle Glaucoma (Poag) of Right Eye, Moderate Stage Primary Open Angle Glaucoma (Poag) of Left Eye, Moderate Stage Hypercholesteremia Status Post Cataract Extraction and Insertion of Intraocular Lens of Left Eye Status Post Cataract Extraction and Insertion of Intraocular Lens of Right Eye Aortoiliac Occlusive Disease ([facility]) 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 citalopram (CELEXA) 40 mg tablet Take 1 tablet by mouth once daily. amLODIPine (NORVASC) 5 mg tablet Take 1 tablet by mouth once daily. rosuvastatin (CRESTOR) 40 mg tablet Take 1 tablet by mouth once daily. finasteride (PROSCAR) 5 mg tablet Take 5 mg by mouth once daily. tamsulosin (FLOMAX) 0.4 mg Take 0.4 mg by mouth once daily. mometasone-formoterol (DULERA) 100-5 mcg/actuation inhaler Inhale 2 Puffs as instructed twice daily. albuterol HFA (PROAIR HFA) 90 mcg/actuation inhaler Inhale 2 Puffs as instructed every 4 hours as needed for up to 15 days. zoledronic acid/mannitol-water (RECLAST INTRAVENOUS) Inject 1 Each intravenously every year. Last infusion: 11/13/2023 (Patient not taking: Reported on 07/19/2024) calcium carbonate/vitamin D3 (CALCIUM 600 + D,3, ORAL) Take 1 tablet by mouth once daily. (Patient not taking: Reported on 07/19/2024) calcium carbonate-vitamin D3 1,000 mg-20 mcg (800 unit) tab Take 1 tablet by mouth once daily. (Patient not taking: Reported on 04/30/2024) trospium (SANCTURA) 20 mg tablet Take 20 mg by mouth twice daily. (Patient not taking: Reported on 04/30/2024) No current facility-administered medications for this visit. Objective BP 116/62 (BP Site: Left Arm, BP Position: Sitting, BP Cuff Size: Large Adult) Pulse 67 Temp 36.9 C (98.5 F) (Temporal) Wt 70.5 kg (155 lb 6.8 oz) BMI 23.63 kg/m Physical Exam Constitutional: General: He is not in acute distress. Appearance: He is not ill-appearing. HENT: Right Ear: Tympanic membrane normal. Left Ear: Tympanic membrane normal. Nose: Congestion present. No rhinorrhea. Mouth/Throat: Mouth: Mucous membranes are moist. Pharynx: Oropharynx is clear. Eyes: Conjunctiva/sclera: Conjunctivae normal. Cardiovascular: Rate and Rhythm: Normal rate and regular rhythm. Pulmonary: Effort: No respiratory distress. Breath sounds: No wheezing, rhonchi or rales. Lymphadenopathy: Cervical: No cervical adenopathy. Neurological: Mental Status: He is alert. Assessment and Plan 1. Acute cough - ICD9: 786.2, ICD10: R05.1 (primary diagnosis) See printed instructions or information. Further recommendations will depend on results. - COVID & INFLUENZA A/B & RSV PCR, ROUTINE 2. Chronic obstructive pulmonary disease, unspecified COPD type (HCC) - ICD9: 496, ICD10: J44.9 Stable. Art Donovan MD documented in this encounterP[facility]02-10-2025 Instructions* Patient Instructions* Massiel Harrell MD - 09/13/2024 2:48 PM EST If you have any questions please contact our office at [phone]. After office hours or on the weekend, please call Dr. Harrell on his cell phone at [phone]. documented in this encounterPomerene Hospital02-10-2025 NoteHNO ID: [id number] Author: MASSIEL HARRELL MD Service: ? Author Type: Physician Type: Progress Notes Filed: 09/13/2024 14:49 Note Text: ASSESSMENT/PLAN: 1. Primary open angle glaucoma (POAG) of right eye, moderate stage - ICD9: 365.11, 365.72, ICD10: H40.1112 (primary diagnosis) 2. Primary open angle glaucoma (POAG) of left eye, moderate stage - ICD9: 365.11, 365.72, ICD10: H40.1122 3. Optic cupping of both eyes - ICD9: 377.14, ICD10: H47.233 Status Post Cataract Surgery with Monofocal Intraocular lens Implant, Canaloplasty with the Omni surgical system, and Hydrus Right Eye (09/26/2022) Status Post Cataract Surgery with Monofocal Intraocular lens Implant, Canaloplasty with the Omni surgical system, and Hydrus Left Eye (11/07/2022) 4. Homonymous hemianopsia, right - ICD9: 368.46, ICD10: H53.461 History of Carotid endarterectomy a couple of years ago. 5. Essential hypertension - ICD9: 401.9, ICD10: I10 Continue to monitor with primary care physician. 6. H/O ischemic left MCA stroke - ICD9: V12.54, ICD10: Z86.73 Continue care with managing Physician I have confirmed and edited as necessary the relevant HPI, ophthalmic history, ROS, and the neuro exam findings as obtained by others. I have seen and examined Denny Gomez. I have discussed the case and the management of this patient's care with the Resident/Fellow, if applicable. I also have reviewed and agree with the assessment and plan as stated above and agree with all of its relevant components.[facility]02-10-[facility] History of Present illness Narrative* Massiel Harrell MD - 09/13/2024 2:44 PM EST ASSESSMENT/PLAN: 1. Primary open angle glaucoma (POAG) of right eye, moderate stage - ICD9: 365.11, 365.72, ICD10: H40.1112 (primary diagnosis) 2. Primary open angle glaucoma (POAG) of left eye, moderate stage - ICD9: 365.11, 365.72, ICD10: H40.1122 3. Optic cupping of both eyes - ICD9: 377.14, ICD10: H47.233 Status Post Cataract Surgery with Monofocal Intraocular lens Implant, Canaloplasty with the Omni surgical system, and Hydrus Right Eye (09/26/2022) Status Post Cataract Surgery with Monofocal Intraocular lens Implant, Canaloplasty with the Omni surgical system, and Hydrus Left Eye (11/07/2022) 4. Homonymous hemianopsia, right - ICD9: 368.46, ICD10: H53.461 History of Carotid endarterectomy a couple of years ago. 5. Essential hypertension - ICD9: 401.9, ICD10: I10 Continue to monitor with primary care physician. 6. H/O ischemic left MCA stroke - ICD9: V12.54, ICD10: Z86.73 Continue care with managing Physician I have confirmed and edited as necessary the relevant HPI, ophthalmic history, ROS, and the neuro exam findings as obtained by others. I have seen and examined Denny Gomez. I have discussed the case and the management of this patient's care with the Resident/Fellow, if applicable. I also have reviewed and agree with the assessment and plan as stated above and agree withall of its relevant components. documented in this encounterPomerene Hospital02-10-2025 NoteDate of Procedure 09/13/2024. 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 Reliability Right Eye Good. Left Eye Good. Interpretation Right Eye Homonymous hemianopsia. Left Eye Homonymous hemianopsia. Interval Change Right Eye Stable. Left Eye Stable.[id number] NoteHNO ID: [id number] Author: CARLOS A KENNEDY MD Service: ? Author Type: Physician Type: Progress Notes Filed: 07/20/2024 08:22 Note Text: [facility] [place] DEPARTMENT OF VASCULAR SURGERY OUTPATIENT VISIT DATE July 19, 2024 OUTPATIENT VISIT TYPE ESTABLISHED SERVICE DATE: 07/19/2024 SERVICE TIME: 3:30 PM PRIMARY CARE PHYSICIAN: Malu Rowe MD HISTORY OF PRESENT ILLNESS: Mr. Gomez is a 69 year old male who presents today for a vascular surgery follow-up visit for his SOWMYA and PAD. He is s/p BL CEA, (L 2019, R?) and bilateral ileofemoral endarterectomies and profundaplasties with bilateral DANIELLE stenting, L EIA stenting, and R EIA stenting (2019). Patient denies any pain in his legs at rest or with walking. He is unlimited in his walking. He has no wounds. He denies symptoms of amaurosis fugax, one sided weakness, facial droop, and aphasia. 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 He is currently smoking, unfortunately his has cancer and he has been smoking more with the stress of this. He has a history of a 5mm intracranial aneurysm that he has not had surveillance on since 2020. 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 Lukasz Beasley Paget disease of bone Stroke (cerebrum) ([facility]) Subdural hematoma ([facility]) 2019 Unspecified essential hypertension Essential hypertension PAST [...] HISTORY Social History Tobacco Use Smoking status: Every Day Current packs/day: 0.25 Average packs/day: 0.3 packs/day for 15.0 years (3.8 ttl pk-yrs) Types: Cigarettes Smokeless tobacco: Never Vaping Use Vaping status: Never Used Substance Use Topics Alcohol use: Not Currently Drug use: Not Currently MEDICATIONS: zoledronic acid/mannitol-water (RECLAST INTRAVENOUS) Inject 1 Each intravenously every year. Last infusion: 11/13/2023 cholecalciferol (VITAMIN D-3) 5,000 unit tab Take 5,000 Units by mouth once daily. calcium carbonate/vitamin D3 (CALCIUM 600 + D,3, ORAL) Take 1 tablet by mouth once daily. calcium carbonate-vitamin D3 1,000 mg-20 mcg (800 unit) tab Take 1 tablet by mouth once daily. (Patient not taking: Reported on 04/30/2024) citalopram (CELEXA) 40 mg tablet Take 1 tablet by mouth once daily. amLODIPine (NORVASC) 5 mg tablet Take 1 tablet by mouth once daily. rosuvastatin (CRESTOR) 40 mg tablet Take 1 tablet by mouth once daily. finasteride (PROSCAR) 5 mg tablet Take 5 mg by mouth once daily. tamsulosin (FLOMAX) 0.4 mg Take 0.4 mg by mouth once daily. trospium (SANCTURA) 20 mg tablet Take 20 mg by mouth twice daily. (Patient not taking: Reported on 04/30/2024) mometasone-formoterol (DULERA) 100-5 mcg/actuation inhaler Inhale 2 Puffs as instructed twice daily. (Patient taking differently: Inhale 2 Puffs as instructed as needed.) albuterol HFA (PROAIR HFA) 90 mcg/actuation inhaler Inhale 2 Puffs as instructed every 4 hours as needed for up to 15 days. ALLERGIES: ALLERGIES Allergen Reactions Seasonal Allergies Other: See Comments Sinus, runny nose PHYSICAL EXAM: There were no vitals taken for this visit. General: Alert and oriented, No acute distress Integumentary: Normal color, no rash, no lesions. HEENT: EOM, pupils equal, round and reactive. Cardiovascular: Pulse regular. Lungs: Normal breath sounds, no wheezes or crackles. Abdomen: Soft, non-tender, no rigidity. Extremities: No deformity, no edema or tenderness, no joint swelling or clubbing. Neurological: Normal cognition and motor skills. Vascular: Bilateral legs warm, no wounds, no edema Diagnostic tests reviewed for today's visit: Carotid duplex IMPRESSION When compared with the prior study, of 07/22/2023 no significant change is noted on the right side and no significant change is noted on t (more content not included)...[facility]12-16-2024 History of Present illness Narrative* Carlos A Kennedy MD - 07/19/2024 3:30 PM EST Images from the original note were not included. [facility] [place] DEPARTMENT OF VASCULAR SURGERY OUTPATIENT VISIT DATE July 19, 2024 OUTPATIENT VISIT TYPE ESTABLISHED SERVICE DATE: 07/19/2024 SERVICE TIME: 3:30 PM PRIMARY CARE PHYSICIAN: Malu Rowe MD HISTORY OF PRESENT ILLNESS: Mr. Gomez is a 69 year old male who presents today for a vascular surgery follow-up visit for his SOWMYA and PAD. He is s/p BL CEA, (L 2019, R?) and bilateral ileofemoral endarterectomies and profundaplasties with bilateral DANIELLE stenting, L EIA stenting, and R EIA stenting(2019). Patient denies any pain in his legs at rest or with walking. He is unlimited in his walking. He hasno wounds. He denies symptoms of amaurosis fugax, one sided weakness, facial droop, and aphasia. 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 He is currently smoking, unfortunately his has cancer and he has been smoking more with the stress of this. He has a history of a 5mm intracranial aneurysm that he has not had surveillance on since 2020. 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 Lukasz Beasley Paget disease of bone Stroke (cerebrum) ([facility]) Subdural hematoma ([facility]) 2018 Unspecified essential hypertension Essential hypertension PAST [...] HISTORY Social History Tobacco Use Smoking status: Every Day Current packs/day: 0.25 Average packs/day: 0.3 packs/day for 15.0 years (3.8 ttl pk-yrs) Types: Cigarettes Smokeless tobacco: Never Vaping Use Vaping status: Never Used Substance Use Topics Alcohol use: Not Currently Drug use: Not Currently MEDICATIONS: zoledronic acid/mannitol-water (RECLAST INTRAVENOUS) Inject 1 Each intravenously every year. Last infusion: 11/13/2023 cholecalciferol (VITAMIN D-3) 5,000 unit tab Take 5,000 Units by mouth once daily. calcium carbonate/vitamin D3 (CALCIUM 600 + D,3, ORAL) Take 1 tablet by mouth once daily. calcium carbonate-vitamin D3 1,000 mg-20 mcg (800 unit) tab Take 1 tablet by mouth once daily. (Patient not taking: Reported on 04/30/2024) citalopram (CELEXA) 40 mg tablet Take 1 tablet by mouth once daily. amLODIPine (NORVASC) 5 mg tablet Take 1 tablet by mouth once daily. rosuvastatin (CRESTOR) 40 mg tablet Take 1 tablet by mouth once daily. finasteride (PROSCAR) 5 mg tablet Take 5 mg by mouth once daily. tamsulosin (FLOMAX) 0.4 mg Take 0.4 mg by mouth once daily. trospium (SANCTURA) 20 mg tablet Take 20 mg by mouth twice daily. (Patient not taking: Reported on 04/30/2024) mometasone-formoterol (DULERA) 100-5 mcg/actuation inhaler Inhale 2 Puffs as instructed twice daily. (Patient taking differently: Inhale 2 Puffs as instructed as needed.) albuterol HFA (PROAIR HFA) 90 mcg/actuation inhaler Inhale 2 Puffs as instructed every 4 hours as needed for up to 15 days. ALLERGIES: ALLERGIES Allergen Reactions Seasonal Allergies Other: See Comments Sinus, runny nose PHYSICAL EXAM: There were no vitals taken for this visit. General: Alert and oriented, No acute distress Integumentary: Normal color, no rash, no lesions. HEENT: EOM, pupils equal, round and reactive. Cardiovascular: Pulse regular. Lungs: Normal breath sounds, no wheezes or crackles. Abdomen: Soft, non-tender, no rigidity. Extremities: No deformity, no edema or tenderness, no joint swelling or clubbing. Neurological: Normal cognition and motor skills. Vascular: Bilateral legs warm, no wounds, no edema Diagnostic tests reviewed for today's visit: Carotid duplex IMPRESSION When compared with the prior study, of 07/22/2023 no significant change is noted on the right side and no significant change is noted on the left side. RIGHT SIDE Common carotid artery: 50-99% stenosis at distal (proximal to patch site). Endarterectomy patch at distal : 1.39 cm. Internal carotid artery: <50% stenosis consistent with mild carotid artery disease. ICA/CCA ratio likely inaccurate due to distal common carotid artery stenosis. Vertebral artery: Patent and antegrade flow noted. Innominate artery: Plaque visualized without evidence of hemodynamically significant stenosis. Subclavian artery: Plaque visualized without evidence of hemodynamically significant stenosis. LEFT SIDE Common carotid artery: Plaque visualized without evidence of hemodynamically significant stenosis. Endarterectomy patch at distal measuring 1.35 cm. Internal carotid artery: 50-69% stenosis consistent with moderate carotid artery disease. Stenosis likely due to diameter mismatch. External carotid artery: Occluded at origin, reconstituted proximal. Vertebral artery: Patent and antegrade flow noted. Subclavian artery: Plaque visualized without evidence of hemodynamically significant stenosis. LE arterial duplex RIGHT SIDE Common iliac artery mid: 50-99% stenosis . Stent noted throughout, in-stent stenosis noted at mid vessel. External iliac artery : patent . Stent noted throughout. Common femoral artery : patent . Profunda femoral artery proximal: patent . Superficial femoral artery origin to proximal: plaque noted without evidence of hemodynamically significant stenosis . LEFT SIDE Common iliac artery : patent . Stent noted throughout. External iliac artery : patent . Stent noted from proximal to mid. Common femoral artery : patent . Profunda femoral artery proximal: patent . Superficial femoral artery origin to proximal: occluded . Known from prior exam done 05/11/2020. IMPRESSION: Mr. Gomez is a 69 year old male with h/o SOWMYA s/p BL CEA, and PAD s/p BL ileofemoral endarterectomies with iliac stenting (bilateral DANIELLE and EIA stenting) . Patient is doing well, he is asymptomaticfrom his carotid disease and PAD. Noninvasive testing shows patent iliac stents and stable carotid d isease s/p BL repair. PLAN and RECOMMENDATIONS: -F/u in one year with repeat LE arterial duplex, carotid duplex, PVR -Discussed and encouraged smoking cessation -Recommend resuming daily 81mg ASA, continue statin -Referral placed with cerebrovascular neurology for intracranial aneurysm follow up [facility] STAFF PHYSICIAN NOTE OF PERSONAL INVOLVEMENT IN CARE IMPRESSION & PLAN: as per note above. I have reviewed the documentation obtained and documented by the Resident and I have personally performed a face to face assessment of the patient and have personally participated in the mcclure components of the visit which includes medical decision making.. I have discussed the case and management ofthe patient's care. STAFF PHYSICIAN: Carlos A Kennedy MD, DATE OF SERVICE: July 20, 2024 TIME OF SERVICE: 8:21 AM SIGNATURE: Carlos A Kennedy MD, PATIENT NAME: Denny Gomez DATE: July 19, 2024 TIME: 3:30 PM documented in this encounterC[place] [id number] History of Present illness Narrative* Elias Rider MD - 07/07/2024 1:00 PM EST Subjective Patient ID: Denny Gomez is a 68 y.o. male. HPI Hx of elevated PSA. Most recent PSA was 2.44 on 04/27. Prior PSA was 1.07 on 09/27. Prior PSA was 1.30 on 03/26. Prior PSA was 1.05 on 05/25. Prior PSA was 4.0 (11/23) Previous PSA was 1.86 on 05/24, prior was 1.86 (12/22) on Proscar since 10/22. He had lost weight but this has stabilized. Normal MRI on 02/22. 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 Hx of gross hematuria. Lastcysto was on 10/2020..... No recent sx. Chronic BPH sx are mild and stable. Some urgency and frequency. Flow is weak. Urge incontinence . Denies dysuria. Denies hematuria. Nocturia x1-2. . He is taking Flomax and proscar. Hx of hematuria. No recent sx. Normal cysto on 05/26. Renal US on 05/26 showed bilateral renal cysts. UA 03/27 was clear Review of Systems Constitutional: Negative for chills and fever. HENT: Negative. Eyes: Negative. Respiratory: Negative for cough and shortness of breath. Cardiovascular: Negative for chest pain and leg swelling. Gastrointestinal: Negative for nausea. Endocrine: Negative. Genitourinary: Negative for difficulty urinating. Negative except for documented in HPI Allergic/Immunologic: Negative. Neurological: Alert & oriented X 3 Hematological: Denies blood thinners Psychiatric/Behavioral: Negative. Objective Physical Exam Vitals and nursing note reviewed. Constitutional: General: He is not in acute distress. Appearance: Normal appearance. Pulmonary: Effort: Pulmonary effort is normal. Abdominal: Tenderness: There is no abdominal tenderness. Genitourinary: Comments: Kidneys non palpable bilaterally Bladder non palpable or tender Scrotum no mass, No hydrocele Epididymis- No spermatocele. Non Tender. Testicles: No mass. Symmetric Urethra: No discharge Penis within normal limits... No lesions. circumcised Prostate - symmetric, no nodules. BENIGN Seminal Vesicals: No mass. Sphincter tone: normal Neurological: Mental Status: He is alert. Assessment/Plan Diagnoses and all orders for this visit: Erectile dysfunction, unspecified erectile dysfunction type Benign prostatic hyperplasia with lower urinary tract symptoms, symptom details unspecified Urinary frequency Nocturia All available PSA values reviewed, Options discussed. Questions answered. Past MRI reviewed Pros and cons of prostate biopsy reviewed. Other options discussed. Questions answered Past Bx reviewed Diet changes for prostate health discussed and educational information given. Pros/Cons of prostatehealth supplements discussed. Treatment options for LUTS reviewed Proscar Rx refilled Discussed timed voiding. Discussed fluid and caffeine intake Treatment options for ED reviewed. Lifestyle change to help prevent UTIs discussed. Encouraged fluid intake. UA reviewed F/U 6 months with PSA [facility] Work Phone: [phone]) 242-920610-09-2024 Instructions* Patient Instructions* Vidal Christie APRN.PSYCHOLOGICAL STRESS EVALUATOR - 05/12/2024 10:55 AM EDT How to Manage Common Symptoms Associated with COVID for Adults Fever- Fever is a temperature over 100.4 F and can occur when the body is fighting an infection. Tohelp treat a fever: Drink plenty of fluids and stay well hydrated. Eat small amounts of easy to digest food. Rest. Your body needs rest to recover, but getting up and moving around the house frequently is a good idea. You should try to continue doing your normal daily activities (bathing, toileting, grooming, cooking), though you will probably feel tired, and need to rest often. Avoid any heavy activity or exercise, as this will increase your body temperature. Dress in light clothing and stay covered in a light sheet. Keep the room temperature cool. Take a slightly warm (not cold or cool) bath, or apply damp washcloths to the forehead and wrists. Cough- Cough is a common symptom associated with COVID and can be bothersome. To help treat a cough: Stay well hydrated. Try warm water or tea with lemon and/or honey to help soothe the cough. Use a humidifier to add moisture to the air. Try a product with menthol, like a cough drop or a rub for your chest such as Vicks, which can helpreduce cough. Try cough drops. Avoid smoking and other strong odors or perfumes. Try breathing exercises to keep your lungs open and clear. Take a big deep breath through your noseand hold for 5 seconds before slowly releasing. Repeat frequently, while you are awake. Congestion- Runny nose or nasal congestion can occur with COVID. Treatment can help relieve symptoms: Try OTC nasal saline spray, or nasal saline rinse to relieve mucus congestion. Nasal strips can help keep nasal passages open, to increase airflow. Elevating your head with an extra pillow in bed can help reduce congestion. Using a humidifier can increase moisture in the air, and make breathing easier. Sore Throat- Another common symptom with COVID, can be managed at home by: Stay well hydrated. Gargle with salt water - mix teaspoon salt with 1 cup of warm water and gargle. This helps to loosen mucus in the back of the throat and may reduce discomfort. Try ice chips, popsicles or lozenges to soothe the throat. Nausea/Vomiting/Diarrhea- These are common symptoms, and staying hydrated is most important. If you are nauseous or vomiting, start with small sips of water every 10-15 minutes and increase astolerated. You can try sucking an ice cube too. If tolerating, you can try pedialyte or Gatorade, or flat sprite or salima-latricia. Start slowly and increase as you are able to. Instead of meals, try smaller, more frequent snacks. Try eating bland foods like crackers, toast, rice, and applesauce. Avoid spicy, greasy or fried foods and dairy containing foods. Even if you aren't feeling hungry due to lack of smell or taste, it is important to try to take in some food when you are able. After drinking and eating, rest in an upright position for up to two hours as needed to help decrease nauseous feelings. Try closing your eyes, avoid moving and watching TV. Avoid strong odors that can make you feel more nauseated. When to seek emergency medical attention Look for emergency warning signs for COVID-19. If having any of these symptoms, seek emergency medical care immediately: Trouble breathing Persistent pain or pressure in the chest New confusion Inability to wake or stay awake Bluish lips or face *This list is not all possible symptoms. Please call your medical provider for any other symptoms that are severe or concerning to you. [facility] in [facility] History of Present illness Narrative* Vidal Christie APRN.CNP - 05/12/2024 10:50 AM EDT Subjective HPI Nontoxic-appearing male presents urgent care chief complaint of flulike illness. Duration of symptoms 3 days. Associated symptoms sinus pressure cough chest congestion. States significant other is sick similar signs and symptoms. Her started first. Has used some OTC medication little to no success.Denies any chest pain hemoptysis pleuritic pain fevers. Past medical history prescription medications allergies reviewed. Risk factors COPD. .Patient presents with: Cough: Chest congestion, ST, sinus drainage, bodyaches x3 days PAST MEDICAL HISTORY Diagnosis Date Abnormal hemoglobin (Hgb) ([facility]) 04/07/2020 Hx: POD2 labs with drop in hemoglobin to 8.4 from baseline 10.6; transfused 1u PRBC POD2 A: asymptomatic, no associated tachycardia or hypotension P: f/u AM CBC Anxiety and depression BPH (benign prostatic hyperplasia) Carotid artery stenosis, asymptomatic, left COPD (chronic obstructive pulmonary disease) ([facility]) Critical lower limb ischemia ([facility]) Intracerebral aneurysm Legally blind 2019 R eye (had a stroke in that eye) Mixed hyperlipidemia Hyperlipidemia Occlusion of right carotid artery 01/30/[address] Lukasz Beasley Paget disease of bone Stroke (cerebrum) ([facility]) Subdural hematoma ([facility]) 2019 Unspecified essential hypertension Essential hypertension PAST [...] VERTB SUBCLAV NECK INC 02/16/2008 right CEA ALLERGIES Seasonal Allergies MEDICATIONS zoledronic acid/mannitol-water (RECLAST INTRAVENOUS) Inject 1 Each intravenously every year. Last infusion: 11/13/2023 cholecalciferol (VITAMIN D-3) 5,000 unit tab Take 5,000 Units by mouth once daily. calcium carbonate/vitamin D3 (CALCIUM 600 + D,3, ORAL) Take 1 tablet by mouth once daily. calcium carbonate-vitamin D3 1,000 mg-20 mcg (800 unit) tab Take 1 tablet by mouth once daily. (Patient not taking: Reported on 04/30/2024) citalopram (CELEXA) 40 mg tablet Take 1 tablet by mouth once daily. amLODIPine (NORVASC) 5 mg tablet Take 1 tablet by mouth once daily. rosuvastatin (CRESTOR) 40 mg tablet Take 1 tablet by mouth once daily. finasteride (PROSCAR) 5 mg tablet Take 5 mg by mouth once daily. tamsulosin (FLOMAX) 0.4 mg Take 0.4 mg by mouth once daily. trospium (SANCTURA) 20 mg tablet Take 20 mg by mouth twice daily. (Patient not taking: Reported on 04/30/2024) mometasone-formoterol (DULERA) 100-5 mcg/actuation inhaler Inhale 2 Puffs as instructed twice daily. (Patient taking differently: Inhale 2 Puffs as instructed as needed.) albuterol HFA (PROAIR HFA) 90 mcg/actuation inhaler Inhale 2 Puffs as instructed every 4 hours as needed for up to 15 days. FAMILY HISTORY Problem Relation Age of Onset Heart Mother Glaucoma Brother Heart Brother Cancer Brother metastatic; no primary known Social History Tobacco Use Smoking status: Every Day Current packs/day: 0.25 Average packs/day: 0.3 packs/day for 15.0 years (3.8 ttl pk-yrs) Types: Cigarettes Smokeless tobacco: Never Vaping Use Vaping status: Never Used Substance Use Topics Alcohol use: Not Currently Drug use: Not Currently BP 120/68 Pulse 71 Temp 36.4 C (97.6 F) Resp 18 Wt 71.7 kg (158 lb 1.1 oz) SpO2 99% BMI24.03 kg/m Review of Systems Constitutional: Negative for chills, fever and malaise/fatigue. HENT: Positive for congestion and sinus pain. Negative for ear discharge, ear pain and sore throat. Eyes: Negative for blurred vision, pain, discharge and redness. Respiratory: Positive for cough and sputum production. Negative for hemoptysis, shortness of breath, wheezing and stridor. Cardiovascular: Negative for chest pain. Gastrointestinal: Negative for abdominal pain, diarrhea, nausea and vomiting. Musculoskeletal: Negative for myalgias. Skin: Negative for itching and rash. Neurological: Negative for dizziness and headaches. Objective Physical Exam Constitutional: General: He is not in acute distress. Appearance: He is not diaphoretic. HENT: Head: Normocephalic. Jaw: No trismus, tenderness, swelling or pain on movement. Nose: Congestion present. Mouth/Throat: Mouth: Mucous membranes are moist. Pharynx: Oropharynx is clear. Uvula midline. No pharyngeal swelling, oropharyngeal exudate, posterior oropharyngeal erythema or uvula swelling. Eyes: Conjunctiva/sclera: Conjunctivae normal. Pupils: Pupils are equal, round, and reactive to light. Cardiovascular: Rate and Rhythm: Normal rate and regular rhythm. Heart sounds: Normal heart sounds. Pulmonary: Effort: Pulmonary effort is normal. No tachypnea, accessory muscle usage or respiratory distress. Breath sounds: Normal breath sounds. No stridor. No wheezing, rhonchi or rales. Abdominal: Palpations: Abdomen is soft. Musculoskeletal: Cervical back: Normal range of motion and neck supple. No edema, erythema, rigidity or tenderness. No pain with movement. Normal range of motion. Lymphadenopathy: Cervical: No cervical adenopathy. Skin: General: Skin is warm and dry. Neurological: Mental Status: He is alert and oriented to person, place, and time. ASSESSMENT/PLAN: 1. Viral illness - ICD9: 079.99, ICD10: B34.9 (primary diagnosis) - COVID & INFLUENZA A/B & RSV PCR, ROUTINE 2. COPD with exacerbation (HCC) - ICD9: 491.21, ICD10: J44.1 Test for COVID-19. If positive treat with antiviral therapies. GFR 81 April 29, 2024. Additionally diagnosed with COPD exacerbation. Placed on Mucinex and doxycycline. Patient was educated on supportive therapies. Patient will follow up with primary care provider as needed. Patient was instructed to immediately proceed to emergency room for any new, worsening, or symptoms lasting longer than anticipated. The patient's clinical presentation is otherwise unremarkable at this time. Based on exam and clinical finding, the patient is stable for discharge. Plan of care was discussed with patient. Patient verbalizes understanding and agrees to plan of care. This note was generated using [employer] software. It may contain errors in wording, punctuation, or spelling. Vidal Christie APRN.GRICEL documented in this encounterP[facility]10-[facility]24 Telephone encounter Note * Telephone Encounter - Liliana Eller LPN - 05/04/2024 2:38 PM EDT Phoned patient went over results from Kesha Boone NP with understanding. [facility]10-[facility] Miscellaneous Notes* Telephone Encounter - Liliana Eller LPN - 05/04/2024 2:38 PM EDT Phoned patient went over results from Kesha Boone NP with understanding. * Telephone Encounter - Liliana Eller LPN - 05/04/2024 2:36 PM EDT ----- Message from Kesha Davis APRN.CNS sent at 05/04/2024 2:05 PM EDT ----- Please let him know FOBT was negative documented in this encounterP[facility]10[facility] Telephone encounter Note * Telephone Encounter - Liliana Eller LPN - 05/04/2024 2:36 PM EDT ----- Message from Kesha Davis APRN.CNS sent at 05/04/2024 2:05 PM EDT ----- Please let him know FOBT was negative [facility] Tele[facility] encounter Note* Telephone Encounter - Liliana Eller LPN - 04/30/2024 12:37 PM EDT Phoned patient went over results, notes from Kesha Boone AUTOMATIC CHIEF with understanding. [facility]09-27-[facility] Miscellaneous Notes* Telephone Encounter - Liliana Eller LPN - 04/30/2024 12:37 PM EDT Phoned patient went over results, notes from Kesha Boone AUTOMATIC CHIEF with understanding. * Telephone Encounter - Liliana Eller LPN - 04/30/2024 12:35 PM EDT ----- Message from Kesha Davis APRN.OVEN BUILDER sent at 04/30/2024 7:34 AM EDT ----- Please let him know that all of his lab work was within normal limits. documented in this encounterPome[facility]09-27-2024 Telephone encounter Note * Telephone Encounter - Liliana Eller LPN - 04/30/2024 12:35 PM EDT ----- Message from Kesha Davis APRN.OVEN BUILDER sent at 04/30/2024 7:34 AM EDT ----- Please let him know that all of his lab work was within normal limits. [facility] Instructions* Patient Instructions* Christine Greene MD - 04/30/2024 12:02 PM EDT Please cut down Vit D3 to 1000 units daily Continue to take adequate calcium through a combination of diet and supplements documented in this encounterPome[facility] Hospital09-27-2024 History of Present illness Narrative* Christine Greene MD - 04/30/2024 11:56 AM EDT [facility] Follow up note Consulted by: Kesha Boone APRN.OVEN BUILDER Chief Complaint: Weight loss HPI: This is a 68 year old male who presents with significant past medical history of Paget's disease of bone and other extensive history including stroke, subdural hematoma, left carotid artery stenosis, critical lower limb ischemia, intracerebral aneurysm, hyperlipidemia, hypertension, COPD, who is presenting for evaluation of weight loss, and elevated alkaline phosphatase level. Duration: 6 months Severity: Mild to moderate Weight loss: He reports stable weight now, no more weight loss. 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 He has been on Fosamax 70 mg [...] the same time were within normal limits. GGT was checked and were normal. Patient was advised to stop taking fosamax and was recommended one dose of reclast, which he received as coordinated by Endocrinology on last visit PAST MEDICAL HISTORY: PAST MEDICAL HISTORY Diagnosis [...] HISTORY: Social History Tobacco Use Smoking status: Every Day Current packs/day: 0.25 Average packs/day: 0.3 packs/day for 15.0 years (3.8 ttl pk-yrs) Types: Cigarettes Smokeless tobacco: Never Vaping Use Vaping status: Never Used Substance Use Topics Alcohol use: Not Currently Drug use: Not Currently MEDICATIONS: Current Outpatient Medications Medication Sig zoledronic acid/mannitol-water (RECLAST INTRAVENOUS) Inject 1 Each intravenously every year. Last infusion: 11/13/2023 cholecalciferol (VITAMIN D-3) 5,000 unit tab Take 5,000 Units by mouth once daily. calcium carbonate/vitamin D3 (CALCIUM 600 + D,3, ORAL) Take 1 tablet by mouth once daily. citalopram (CELEXA) 40 mg tablet Take 1 tablet by mouth once daily. amLODIPine (NORVASC) 5 mg tablet Take 1 tablet by mouth once daily. rosuvastatin (CRESTOR) 40 mg tablet Take 1 tablet by mouth once daily. finasteride (PROSCAR) 5 mg tablet Take 5 mg by mouth once daily. tamsulosin (FLOMAX) 0.4 mg Take 0.4 mg by mouth once daily. mometasone-formoterol (DULERA) 100-5 mcg/actuation inhaler Inhale 2 Puffs as instructed twice daily. (Patient taking differently: Inhale 2 Puffs as instructed as needed.) albuterol HFA (PROAIR HFA) 90 mcg/actuation inhaler Inhale 2 Puffs as instructed every 4 hours as needed for up to 15 days. calcium carbonate-vitamin D3 1,000 mg-20 mcg (800 unit) tab Take 1 tablet by mouth once daily. (Patient not taking: Reported on 04/30/2024) trospium (SANCTURA) 20 mg tablet Take 20 mg by mouth twice daily. (Patient not taking: Reported on 04/30/2024) No current facility-administered medications for this visit. ALLERGIES: ALLERGIES Allergen Reactions Seasonal Allergies Other: See Comments Sinus, runny nose REVIEW OF SYSTEMS: GENERAL: Positive for weight loss, no malaise or fevers HEENT: Negative for frequent or significant headaches, No changes in hearing or vision, no nose bleeds or other nasal problems NECK: Negative for lumps, goiter, pain and significant neck swelling RESPIRATORY: Negative for cough, hemoptysis, wheezing, COPD, dyspnea or shortness of breath CARDIOVASCULAR: Negative for chest pain, leg swelling, hypertension, CHF or palpitations GI: No nausea, vomiting, or diarrhea MUSCULOSKELETAL: Negative for joint pain or swelling, back pain or muscle pain SKIN: Negative for lesions, rash, and itching ENDOCRINE: Negative for cold or heat intolerance, polyuria, polydipsia and goiter NEURO: No history of headaches, syncope, paralysis, seizures or tremors All other reviewed and negative other than HPI. PHYSICAL EXAM: Resp 20 Ht 172.7 cm (5' 8") Wt 70.2 kg (154 lb 12.8 oz) BMI 23.54 kg/m Body mass index is 23.54 kg/m . General Appearance: Well appearing, alert, in no acute distress, well-hydrated, well nourished.. Skin: Skin color, texture, turgor normal, no suspicious rashes or lesions. Eyes: Anicteric sclera. Pupils are equally round and reactive to light. Extraocular movements are intact. . Neck: Supple, no adenopathy; thyroid symmetric, normal size, no bruits. Lungs: Lungs clear to auscultation. No wheezing, rhonchi, rales. Heart: RRR without murmur, gallop, or rubs. No ectopy. Abdomen: Normal abdominal exam, Abdomen soft, non-tender. Bowel sounds normal. No masses, organomegaly. Extremities: No deformities, edema, skin discoloration, clubbing or cyanosis. Good capillary refill. . Musculoskeletal: No joint swelling, deformity, or tenderness. Peripheral Pulses: Normal. Neurologic: Gait normal. Reflexes normal and symmetric. Sensation grossly intact.. LAB: Latest Ref Rng 03/25/2023 07/03/2023 04/29/2024 Protein, Total 6.3 - 8.0 g/dL 7.0 7.4 Albumin 3.9 - 4.9 g/dL 4.6 4.7 Calcium 8.5 - 10.2 mg/dL 9.9 10.1 Bilirubin, Total 0.2 - 1.3 mg/dL 0.4 0.5 Alkaline Phosphatase 38 - 113 U/L 220 (H) 83 AST 14 - 40 U/L 25 24 ALT 10 - 54 U/L 37 38 Glucose 74 - 99 mg/dL 81 85 BUN 9 - 24 mg/dL 12 16 Creatinine 0.73 - 1.22 mg/dL 0.90 1.00 Sodium 136 - 144 mmol/L 140 142 Potassium 3.7 - 5.1 mmol/L 4.9 5.0 Chloride 98 - 107 mmol/L 106 (H) 105 CO2 22 - 30 mmol/L 27 24 Anion Gap 8 - 15 mmol/L 7 (L) 13 eGFR >=60 mL/min/1.73m 93 81 TSH 0.270 - 4.200 mIU/L 0.425 0.460 Vitamin D 25 Hydroxy 31.0 - 80.0 ng/mL 42.1 46.7 Cortisol 4.8 - 19.5 ug/dL 22.9 (H) ACTH 7.2 - 63.3 pg/mL 48.5 GGT 10 - 70 U/L 47 Legend: (H) High (L) Low ASSESSMENT : 68 year old male with known history significant for Paget's disease of bone (skull), who was referred to endocrine clinic for elevated alkaline phosphatase levels; and weight loss for the past 6 months. His only symptom is weight loss of 15 pounds in the last 6 months, no associated symptoms noted on review of systems. Weight loss: Discussed no concerns for endocrine causes of weight loss, as was mentioned previously 2. Elevated alkaline phosphatase level Total serum alkaline phosphatase is elevated likely secondary to Paget's disease of bone. He has been on fosamax since 2018 I.e., since diagnosis. He does not have any bone pain, fractures and the elevation of total ALP was less than 2 times the upper limits of normal. Liver enzymes within normal, hence likely this is bone specific elevation given history He was recommended to avoid prolonged bisphosphonate therapy which to begin with was not indicated for paget's. Recommended receiving 1 dose of reclast. No indications for any further treatment FOLLOW UP: PRN Medical Decision Making: Problems: Moderate: 1+ chronic illnesses with change Data: Unique test result(s) reviewed: 3+ Medical Decision Making Level: 4 - Moderate Christine Greene MD [facility] [place] [phone] documented in this encounterPome[facility] Hospital09-27-2024 Telephone encounter Note * Telephone Encounter - Kesha Boone APRN.CNS - 04/30/2024 7:28 AM EDT noted [facility] Miscellaneous Notes* Telephone Encounter - Kesha Boone APRN.CNS - 04/30/2024 7:28 AM EDT noted * Telephone Encounter - Elena Crane LPN - 04/29/2024 12:31 PM EDT Patient notified of providers message and verbalized understanding. Patient is declining any appointment regarding memory but will schedule with Dr. Greene Endocrinology. Encounter routed to [facility] toassist patient in scheduling. * Telephone Encounter - Kesha Boone APRN.CNS - 04/29/2024 12:02 PM EDT On review of chart I see that he is due for an endocrinology visit in June with Dr. Greene. Please schedule. Previously noted that there was aneed for more in-depth memory testing or an appointment with manager of radiology if he continues to note memory difficulties. Dr Son pratts or memory testing recommended, schedule if willing. documented in this encounterP[facility]09-26-2024 Telephone encounter Note * Telephone Encounter - Elena Crane LPN - 04/29/2024 12:31 PM EDT Patient notified of providers message and verbalized understanding. Patient is declining any appointment regarding memory but will schedule with Dr. Greene Endocrinology. Encounter routed to [facility] toassist patient in scheduling. [facility] Telephone encounter Note* Telephone Encounter - Kesha Boone APRN.CNS - 04/29/2024 12:02 PM EDT On review of chart I see that he is due for an endocrinology visit in June with Dr. Greene. Please schedule. Previously noted that there was aneed for more in-depth memory testing or an appointment with manager of radiology if he continues to note memory difficulties. Dr Son hairston or memory testing recommended, schedule if willing. [facility] History of Present illness Narrative* Kesha Boone APRN.CNS - 04/29/2024 11:00 AM EDT SUBJECTIVE: Alpha-1 Antitrypsin Deficiency Screening Never done Shingrix Vaccine(1 of 2) Never done RSV Vaccine(1 - Risk 60-74 years 1-dose series) Never done Colorectal Cancer Screening due on 03/26/2024 HPI Denny Gomez is a 68 year old male. 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 ACTIVE PROBLEM LIST Anxiety and Depression Mixed Hyperlipidemia Essential Hypertension Paget's Bone Disease Elevated Psa, Less Than 10 Ng/Ml History of Cerebral Hemorrhage Vision Loss, Bilateral Homonymous Hemianopsia, Right Ocular Hypertension, Bilateral Optic Cupping of Both Eyes Bilateral Carotid Artery Stenosis Pad (Peripheral Artery Disease) ([facility]) S/P Carotid Endarterectomy H/O Ischemic Left Mca Stroke Intracranial Atherosclerosis Atherosclerosis of [place] Artery of Extremity With Intermittent Claudication (Hcc) Iliac Artery Injury, Left, Initial Encounter Facial Swelling Vitamin D Deficiency Recurrent Depressive Disorder, in Remission ([facility]) Primary Open Angle Glaucoma (Poag) of Right Eye, Moderate Stage Primary Open Angle Glaucoma (Poag) of Left Eye, Moderate Stage Hypercholesteremia Status Post Cataract Extraction and Insertion of Intraocular Lens of Left Eye Status Post Cataract Extraction and Insertion of Intraocular Lens of Right Eye 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 Notes he is generally in his usual state of health. Reports eating and drinking normally, noting weight is decreased. Review of trends show 4 pound weight loss over [address] Kennedy vascular surgery for carotid artery and PAD.Has upcoming appointment. Has urologist in [place] that he has been following with for BPH. Dr. Rider. Has seen Dr Child for Paget's disease of the bone. Drug holiday recommended due to taking Fosamax for [address] Harrell ophthalmology is seeing him for decreased vision following his stroke, cataracts status post lens replacement surgery and glaucoma. HTN: Without report of headache, chest pain, palpitations, dyspnea, peripheral edema, orthopnea, fatigue or PND. Going to [facility]. Last 14 Encounter BP Readings: Date: BP: 04/29/2024 100/64 11/13/2023 134/70 10/27/2023 100/60 07/22/2023 134/70 07/01/2023 108/60 04/25/2023 118/66 03/25/2023 112/70 01/21/2023 127/66 10/28/2022 122/70 08/30/2022 122/70 08/23/2022 102/62 08/21/2022 122/70 07/19/2022 130/75 06/18/2022 112/74 He notes currently with stable anxiety and depression. Doing well on Celexa. Would like to continueunchanged. No counselor, defers for now. No voiced [...] Negative. Gastrointestinal: Negative. Endocrine: Negative. Objective BP 100/64 Pulse 74 Resp 16 Wt 69.4 kg (153 lb) BMI 23.26 kg/m Physical Exam Vitals and nursing note [...] Other: See Comments Sinus, runny nose MEDICATIONS calcium carbonate-vitamin D3 1,000 mg-20 mcg (800 unit) tab Take 1 tablet by mouth once daily. citalopram (CELEXA) 40 mg tablet Take 1 tablet by mouth once daily. amLODIPine (NORVASC) 5 mg tablet Take 1 tablet by mouth once daily. rosuvastatin (CRESTOR) 40 mg tablet Take 1 tablet by mouth once daily. finasteride (PROSCAR) 5 mg tablet Take by mouth. tamsulosin (FLOMAX) 0.4 mg TAKE 1 CAPSULE BY MOUTH EVERY DAY AT BEDTIME trospium (SANCTURA) 20 mg tablet Take 20 mg by mouth twice daily. mometasone-formoterol (DULERA) 100-5 mcg/actuation inhaler Inhale 2 Puffs as instructed twice daily. (Patient taking differently: Inhale 2 Puffs as instructed as needed.) albuterol HFA (PROAIR HFA) 90 mcg/actuation inhaler Inhale 2 Puffs as instructed every 4 hours as needed for up to 15 days. 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 Lukasz Beasley Paget disease of bone Stroke (cerebrum) ([facility]) Subdural hematoma ([facility]) 2019 Unspecified essential hypertension Essential hypertension Social History Tobacco Use Smoking status: Former Current packs/day: 0.50 Average packs/day: 0.5 packs/day for 15.0 years (7.5 ttl pk-yrs) Types: Cigarettes Smokeless tobacco: Never Tobacco comments: 1 pack per 4 to 5 days (started 10 to 15 years ago)--as of 12/15/15 Vaping Use Vaping status: Never Used Substance Use Topics Alcohol use: Not Currently [...] Occult Blood, Stool Negative Negative ASSESSMENT/PLAN: 1. Essential hypertension - ICD9: 401.9, ICD10: I10 (primary diagnosis) controlled - Continue current medications - Encouraged sodium restriction, DASH or Mediterranean diet - Recommend regular aerobic exercise - COMPREHENSIVE METABOLIC PANEL - COMPLETE BLOOD COUNT AND DIFFERENTIAL - LIPID PANEL BASIC 2. Anxiety and depression - ICD9: 300.00, 311, ICD10: F41.9, F32.A Stable, currently controlled, continue to monitor. 3. Mixed hyperlipidemia - ICD9: 272.2, ICD10: E78.2 Recommend a plant based diet such as Mediterranean diet with plenty of vegetables, fruits,whole grains, fish, chicken, turkey or plant proteins and routine exercise such as walking - LIPID PANEL, NONFASTING 4. Aortoiliac occlusive disease (HCC) - ICD9: 444.09, ICD10: I74.09 Following with vascular surgery - COMPREHENSIVE METABOLIC PANEL - COMPLETE BLOOD COUNT AND DIFFERENTIAL - LIPID PANEL BASIC - LIPID PANEL, NONFASTING 5. Adenocarcinoma of prostate (HCC) - ICD9: 185, ICD10: C[address] Rider urology [place] 6. Paget's bone disease - ICD9: 731.0, ICD10: M88.9 Stable, continue to monitor. Schedule appt with endocrinology - VITAMIN D 25 HYDROXY 7. Weight loss - ICD9: 783.21, ICD10: R63.4 - THYROID STIMULATING HORMONE 8. Vitamin D deficiency - ICD9: 268.9, ICD10: E55.9 - VITAMIN D 25 HYDROXY 9. Elevated PSA, less than 10 ng/ml - ICD9: 790.93, ICD10: R97.20 - PSA/PROSTATE SPECIFIC ANTIGEN SCREENING 10. Colon cancer screening - ICD9: V76.51, ICD10: Z12.11 11. Screening for colon cancer - ICD9: V76.51, ICD10: Z12.11 - IMMUNOCHEMICAL FECAL OCCULT BLOOD TEST 12. Encounter for immunization - ICD9: V03.89, ICD10: Z23 - [email or web address] COVID-19 VACCINE AGE 12+ YR (COMIRNATY) - INFLUENZA VACCINE, PRSV FREE, AGE 65+ YR, HIGH DOSE, TRIVALENT (FLUZONE HIGH-DOSE) - [employer] INSTRUCTIONS 13. Chronic obstructive pulmonary disease, unspecified COPD type (HCC) - ICD9: 496, ICD10: J44.9 Stable, currently controlled, continue to monitor. - [id number] - COMPREHENSIVE METABOLIC PANEL - COMPLETE BLOOD COUNT AND DIFFERENTIAL 14. 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 Memory difficulties - ICD9: 780.93, ICD10: R41.3 Recommend neuropsychiatric testing or geriatric appointment, does not appear this has been completed yet. Recommend he schedule appointment with manager equity. Also complete either neuropsychiatric testing or geriatric visit Dr Cline per his preference for decreased memory. Kesha Boone APRN.CNS Medical Decision Making: Problems: Moderate: 2+ stable chronic illnesses Data: Unique test(s) ordered: 3+ Risk: Moderate: Drug management Medical Decision Making Level: 4 - Moderate documented in this encounterPome[facility]08-27-2024 Telephone encounter Note * Telephone Encounter - Lexis Villanueva - 03/30/2024 2:01 PM EDT Reason for call: Mr Gomez called and he would like to schedule an appointment with DR omaira Loredo and cell number [phone] Diagnosis s/p carotid endarteroctomy Kind Regards Lexis [facility]08-27-[facility] Miscellaneous Notes* Telephone Encounter - RichLexis - 03/30/2024 2:01 PM EDT Reason for call: Mr Gomez called and he would like to schedule an appointment with DR omaira Loredo and cell number [phone] Diagnosis s/p carotid endarteroctomy Kind Regards Lexis documented in this encounterPomerene Hospital08-26-2024 Instructions* Patient Instructions* Massiel Harrell MD - 03/29/2024 1:41 PM EDT If you have any questions please contact our office at [phone]. After office hours or on the weekend, please call Dr. Harrell on his cell phone at [phone]. documented in this encounterPomerene Hospital08-26-2024 NoteDate of Procedure 03/29/2024. Quality Right Eye Good. Left Eye Good. NFL Interpretation Right Eye Superior loss, Temporal loss, Inferior loss. Left Eye Superior loss. Ganglion Cell Layer Thickness Right Eye Diffuse loss. Left Eye Superior loss, Inferior loss, Temporal loss. Interval Change Right Eye Stable. Left Eye Stable.[id number] History of Present illness Narrative* Massiel Harrell MD - 03/29/2024 1:32 PM EDT ASSESSMENT/PLAN: 1. Primary open angle glaucoma (POAG) of right eye, moderate stage - ICD9: 365.11, 365.72, ICD10: H40.1112 (primary diagnosis) 2. Primary open angle glaucoma (POAG) of left eye, moderate stage - ICD9: 365.11, 365.72, ICD10: H40.1122 3. Optic cupping of both eyes - ICD9: 377.14, ICD10: H47.233 Status Post Cataract Surgery with Monofocal Intraocular lens Implant, Canaloplasty with the Omni surgical system, and Hydrus Right Eye (09/26/2022) Status Post Cataract Surgery with Monofocal Intraocular lens Implant, Canaloplasty with the Omni surgical system, and Hydrus Left Eye (11/07/2022) Stable/monitor 4. Homonymous hemianopsia, right - ICD9: 368.46, ICD10: H53.461 History of Carotid endarterectomy a couple of years ago. Monitor 5. Essential hypertension - ICD9: 401.9, ICD10: I10 6. H/O ischemic left MCA stroke - ICD9: V12.54, ICD10: Z86.73 Continue care with primary care physician Follow up in 6 months Visual field/Fundus photos I have confirmed and edited as necessary the relevant HPI, ophthalmic history, ROS, and the neuro exam findings as obtained by others. I have seen and examined Denny Gomez. I have discussed the case and the management of this patient's care with the Resident/Fellow, if applicable. I also have reviewed and agree with the assessment and plan as stated above and agree withall of its relevant components. documented in this encounterPomerene Hospital04-29-2024 Telephone encounter Note * Telephone Encounter - Félix Rosales - 12/01/2023 4:18 PM EDT I reviewed the patient on the 1st-time treatment report. The patient does not have a cancer diagnosis or a chemo/radiation regimen. No further Financial Navigator intervention is needed at this time. [facility] Miscellaneous Notes* Telephone Encounter - Félix Rosales - 12/01/2023 4:18 PM EDT I reviewed the patient on the 1st-time treatment report. The patient does not have a cancer diagnosis or a chemo/radiation regimen. No further Financial Navigator intervention is needed at this time. documented in this encounterPomerene Hospital03-25-2024 History of Present illness Narrative* Malu Rowe MD - 10/27/2023 11:31 AM EDT This note was created using [employer]. Subjective Denny Gomez is a 68 year old male. Patient presents with: 6 mo follow up SUBJECTIVE: Denny Gomez is a 68 year old year old gentleman here today for 6 month follow up appointment for review of medical conditions. Does not have HCDPOA or LW but spouse is designated surrogate decision maker PAST MEDICAL HISTORY Diagnosis Date Abnormal hemoglobin [...] Beasley Paget disease of bone Stroke (cerebrum) ([facility]) Subdural hematoma (HCC) 2019 Unspecified essential hypertension Essential hypertension Current Outpatient Medications Medication Sig amLODIPine (NORVASC) 5 mg tablet Take 1 tablet by mouth once daily. rosuvastatin (CRESTOR) 40 mg tablet Take 1 tablet by mouth once daily. finasteride (PROSCAR) 5 mg tablet Take by [...] No current facility-administered medications for this visit. Review of Systems Objective BP 100/60 Pulse 60 Ht 172.7 cm (5' 8") Wt 69.9 kg (154 lb) BMI 23.42 kg/m Last 5 Encounter Wt Readings: Date: Wt: 10/27/2023 69.9 kg (154 lb) 07/01/2023 69.8 kg (153 lb 12.8 oz) 04/25/2023 69.9 kg (154 lb) 03/25/2023 69.9 kg (154 lb) 08/23/2022 73 kg (161 lb) No waist measurement recorded Estimated body mass index is 23.42 kg/m as calculated from the following: Height as of this encounter: 172.7 cm (5' 8"). Weight as of this encounter: 69.9 kg (154 lb). Last 5 Encounter BP Readings: Date: BP: 10/27/2023 100/60 07/22/2023 134/70 07/01/2023 108/60 04/25/2023 118/66 03/25/2023 112/70 Physical Exam Vitals reviewed. Constitutional: Appearance: Normal appearance. Eyes: Conjunctiva/sclera: Conjunctivae normal. Cardiovascular: Rate and Rhythm: Normal rate and regular rhythm. Heart sounds: Normal heart sounds. Pulmonary: Effort: Pulmonary effort is normal. Breath sounds: Normal breath sounds. Musculoskeletal: Right lower leg: No edema. Left lower leg: No edema. Skin: General: Skin is warm and dry. Neurological: General: No focal deficit present. Mental Status: He is alert and oriented to person, place, and time. Psychiatric: Mood and Affect: Mood normal. Behavior: Behavior normal. Thought Content: Thought content normal. Judgment: Judgment normal. Assessment and Plan ASSESSMENT/PLAN: 1. Essential hypertension - ICD9: 401.9, ICD10: I10 (primary diagnosis) - Controlled - Continue current medications 2. Elevated alkaline phosphatase level - ICD9: 790.5, ICD10: R74.8 Continue to monitor. Follow up with endocrinology 3. Vitamin D deficiency - ICD9: 268.9, ICD10: E55.9 Continue present management 4. Recurrent depressive disorder, in remission (HCC) - ICD9: 296.35, ICD10: F33.40 Continue present management 5. Paget disease of bone - ICD9: 731.0, ICD10: M88.9 - Reviewed the need for Calcium and Vitamin D supplements and weight bearing exercise as tolerated - DXA-AXIAL SKELETON - BD DXA TRABECULAR BONE SCORE (TBS) 6. Encounter for immunization - ICD9: V03.89, ICD10: Z23 - RSV PRINTED PHARMACY INSTRUCTIONS - [email or web address] COVID-19 VACCINE (2022- SEASON) AGE 12+ YR No problem-specific Assessment & Plan notes found for this encounter. Malu Rowe MD documented in this encounterPome[facility] Hospital02-16-2024 Miscellaneous Notes* Telephone Encounter - Paige Banda - 09/19/2023 3:28 PM EST Patient has been identified by name and date of : Yes Patient phones for refill(s): Requested Prescriptions Pending Prescriptions Disp Refills amLODIPine (NORVASC) 5 mg tablet 90 tablet 3 Sig: Take 1 tablet by mouth once daily. Date of last office visit in primary care: 04/25/2023 Date of next office visit in primary care: 10/27/2023 Please advise. Thank you. Paige Banda. documented in this encounterPomerene Hospital12-08-2023 History of Present illness Narrative* Frank Cano CNP - 07/11/2023 2:06 PM EST Consult not completed, patient [facility] with [facility] Greene 07/01/23. Will defer to their office for follow up. documented in this [id number] Miscellaneous Notes* Telephone Encounter - Irlanda Canela APRN.CNP - 05/14/2023 8:42 AM EDT Noted that Dr. Rider is following up on the CT results * Telephone Encounter - Carolina Ulloa OCCA - 05/12/2023 3:17 PM EDT Additional TC to Dr. Rider's office to inquire about below. Spoke with nurse who stated patient has an appointment with Dr. Rider on 05/19 to discuss results. Patient will also have a procedure that day to look inside his bladder. MAGY Velarde * Telephone Encounter - Kaylan Garza LPN - 05/09/2023 1:38 PM EDT Message left asking Dr. Ryann Rider's office nurse to return call. Dr. Rowe is wanting to know if Dr. Rider is managing results of CT scan dated 04/23/2023. Is he making referral for evaluation to rule out metastases or adrenal nodule work up? documented in this encounterPomerene Hospital10-09-2023 Miscellaneous Notes* Telephone Encounter - Estee Carmen LPN - 05/12/2023 11:55 AM EDT Appt scheduled w/[facility], 06/12/2023 Estee Cramen LPN * Telephone Encounter - Nathaly Díaz - 05/03/2023 11:46 AM EDT 1st attempt * Telephone Encounter - Kesha Boone APRN.CNS - 05/02/2023 4:09 PM EDT Right upper quadrant ultrasound showed mildly coarsened texture of liver. Renal cysts. No gallstones. Recommend he schedule appointment with manager equity if he is not already done so. [...] No mass lesion identified documented in this encounterPomerene Hospital09-28-2023 History of Present illness Narrative* Fidelina Kimblal RDMS - 05/01/2023 11:30 AM EDT Radiology Service Progress Note PATIENT NAME: Denny Gomez DATE OF SERVICE: May 01, 2023 TIME: 11:55 AM PATIENT IDENTITY VERIFICATION COMPLETED USING TWO (2) IDENTIFIERS: Name and Date of confirmedby patient verbally. FALL SCREENING: Has the patient [...] 01, 2023 11:55 AM documented in this encounterPomerene Hospital09-26-2023 Instructions* Patient Instructions* Massiel Harrell MD - 04/29/2023 9:58 AM EDT Continue: Systane Complete solution instill 1 drop 3 times daily Both Eyes. See Dr. Isidra Kelsey for refraction and glasses If you have any questions please contact our office at [phone]. After office hours or on the weekend, please call Dr. Harrell on his cell phone at [phone]. documented in this encounterPomerene Hospital09-26-2023 History of Present illness Narrative* Massiel Harrell MD - 04/29/2023 9:54 AM EDT ASSESSMENT/PLAN: 1. Homonymous hemianopsia, right - ICD9: [...] findings as obtained by the ophthalmic technical staff.I have seen and examined Denny Gomez. I [...] options. Massiel Harrell MD documented in this encounterPomerene Hospital09-22-2023 Instructions* Patient Instructions* Kesha Boone APRN.CNS - 04/25/2023 11:18 AM EDT Continue to follow-up with Dr. Rider regarding your prostate. Schedule an appointment with the manager equity. Complete memory test. Complete right upper quadrant ultrasound. documented in this encounterPomerene Hospital09-22-2023 History of Present illness Narrative* Kesha Boone APRN.CNS - 04/25/2023 10:59 AM EDT SUBJECTIVE: Shingrix Vaccine(1 of 2) Never done [...] Carotid Artery Stenosis Pad (Peripheral Artery Disease) ([facility]) S/P Carotid Endarterectomy H/O Ischemic Left Mca Stroke Intracranial Atherosclerosis Atherosclerosis of [place] Artery of Extremity With Intermittent Claudication ([facility]) Iliac Artery Injury, Left, Initial Encounter Facial Swelling Vitamin D Deficiency Recurrent Depressive Disorder, in Remission ([facility]) Primary Open Angle Glaucoma (Poag) of Right Eye, Moderate Stage Primary Open Angle Glaucoma (Poag) of Left Eye, Moderate Stage Hypercholesteremia Status Post Cataract Extraction and Insertion of Intraocular Lens of Left Eye Status Post Cataract Extraction and Insertion of Intraocular Lens of Right Eye Aortoiliac Occlusive Disease ([facility]) Aneurysm of Ophthalmic Artery Adenocarcinoma of Prostate ([facility]) HPI excerpted from previous visit: Following with A Raymond Fang MD Neurology regarding history of ischemic left MCA stroke, bilateral carotid artery stenosis status post carotid endarterectomy , intracranial atherosclerosis and history of cerebral hemorrhage. Last seen March 2021. CT scan at last visit showed some narrowing of the left internal carotid artery versus difference in measuring techniques or possibly plaque or scartissue developing in the artery. Subsequently seen by Rolan Howard MDVascular Surgery June 2021. Noted to be feeling well. Noted left CEA on 03/24/2020 and bilateral femoral endarterectomies and iliac stenting on 04/04/2020. No further progression noted of carotid artery stenosis. Advised to follow-up with respect modification follow- up in 6 months with full PVR and carotid duplex. Has urologist in [place] that he has been following with for BPH. Dr. Rider. Continues with alendronate for history disease of the bone. No manager equity. Follows with eye doctor following decreased vision [...] edema, orthopnea, fatigue or PND. Going to [facility]. Last 14 Encounter BP Readings: Date: BP: 04/25/2023 118/66 03/25/2023 112/70 01/21/2023 127/66 10/28/2022 122/70 08/30/2022 122/70 08/23/2022 102/62 08/21/2022 122/70 07/19/2022 130/75 06/18/2022 112/74 12/18/2021 131/68 08/30/2021 124/70 06/12/2021 127/77 03/13/2021 132/73 01/26/2021 122/68 He notes currently with stable anxiety and depression. Doing well on Celexa. Would like to continueunchanged. No counselor, defers for now. No voiced SI, HI. Patient's last HgA1C was Hemoglobin A1C (%) Date Value 03/25/2023 4.9 11/07/2017 5.1 ) Hyperlipidemia. Mr. Jason reports doing well on current therapy His [...] MEDICAL HISTORY Diagnosis Date Abnormal hemoglobin (Hgb) ([facility]) 04/07/2020 Hx: POD2 labs with drop in [...] [place] Paget disease of bone Stroke (cerebrum) ([facility]) Subdural hematoma ([facility]) 2019 Unspecified essential hypertension Essential hypertension Social [...] acceptable range. Recommend he schedule appointment with manager equity, [facility] already been sent - XR CHEST 2V FRONTAL/LAT - TSH BLD - COMP METABOLIC PANEL - CBC + DIFF - PSA/PROSTSPECAG SCRN No concerning findings on chest x-ray. Alkaline phosphatase is elevated. PSA within normal limits TSH within normal limits vitamin D within normal limits A1c within normal limits. Would recommend manager equity visit if willing. Consult has been placed, schedule. Recommend neuropsychiatric testing or referral to manager of radiology due to memory loss noted at home andalso documented here. Not yet scheduled. 6 mo follow up Malu Rowe MD if willing Kesha Boone APRN.CNS Medical Decision Making: Medical Decision Making Level: 1 - N/A documented in this encounterPomerene Hospital09-14-2023 Miscellaneous Notes* Telephone Encounter - Isidra Diaz - 04/17/2023 11:25 AM EDT Phoned patient to advised him that Janeen Cioce does not treat weight loss. Spoke with Betsey( spouse) and advised her to call [phone] to schedule with another endocrinology provider. She is awarethere is an incoming provider but we are not scheduling with her yet. Isidra Diaz MA documented in this encounterPomerene Hospital08-28-2023 Miscellaneous Notes* Telephone Encounter - Kesha Boone APRN.CNS - 03/31/2023 4:00 PM EDT Mailed information. * Telephone Encounter - Lyn Matta RN - 03/28/2023 8:26 AM EDT Pt called and is notified of providers results and instructions. Pt voices understanding. Transferred to scheduled to set up appt with Endocrinology, scheduling is going to call Pt back when his wifeis home. Lyn Matta RN * Telephone Encounter - Kesha Boone APRN.CNS - 03/27/2023 4:58 PM EDT Please let him know: No concerning findings on chest x-ray. Alkaline phosphatase is elevated. PSA within normal limits TSH within normal limits vitamin D within normal limits A1c within normal limits. Would recommend manager equity visit if willing. Consult has been placed, schedule. Recommend neuropsychiatric testing or referral to manager of radiology due to memory loss noted at home andalso documented here. Not yet scheduled. documented in this encounterPomerene Hospital08-22-2023 History of Present illness Narrative* Deepti Davenport RT(R) - 03/25/2023 4:20 PM EDT Radiology Service Progress Note PATIENT NAME: Denny Gomez DATE OF SERVICE: March 25, 2023 TIME: 4:17 PM PATIENT IDENTITY VERIFICATION COMPLETED USING TWO (2) IDENTIFIERS: Name and Date of confirmedby patient verbally. FALL SCREENING: Has the patient [...] RT Erik(R) March 25, 2023 4:17 PM documented in this encounterPomerene Hospital08-22-2023 Miscellaneous Notes* Result Encounter Note - Kesha Boone APRN.CNS - 03/25/2023 4:20 PM EDT No concerning findings on chest x-ray. Alkaline phosphatase is elevated. PSA within normal limits TSH within normal limits vitamin D within normal limits A1c within normal limits. documented in this encounterPomerene Hospital08-22-2023 Progress note* Result Encounter Note - Kesha Boone APRN.CNS - 03/25/2023 4:20 PM EDT No concerning findings on chest x-ray. Alkaline phosphatase is elevated. PSA within normal limits TSH within normal limits vitamin D within normal limits A1c within normal limits. [facility] History of Present illness Narrative* Kesha Boone APRN.CNS - 03/25/2023 3:00 PM EDT SUBJECTIVE: SHINGRIX VACCINE(1 of 2) Never done [...] Carotid Artery Stenosis Pad (Peripheral Artery Disease) (Hcc) S/P Carotid Endarterectomy H/O Ischemic Left Mca Stroke Intracranial Atherosclerosis Atherosclerosis of [place] Artery of Extremity With Intermittent Claudication (Hcc) [...] in measuring techniques or possibly plaque or scartissue developing in the artery. Subsequently seen by Rolan Howard MDVascular Surgery June 2021. Noted to be feeling well. Noted left CEA on 03/24/2020 and bilateral femoral endarterectomies and iliac stenting on 04/04/2020. No further progression noted of carotid artery stenosis. Advised to follow-up with respect modification follow- up in 6 months with full PVR and carotid duplex. Has urologist in [place] that he has been following with for BPH. Dr. Rider. Continues with alendronate for history disease of the bone. No manager equity. Follows with eye doctor following decreased vision [...] edema, orthopnea, fatigue or PND. Going to [facility]. Last 14 Encounter BP Readings: Date: BP: 01/21/2023 127/66 10/28/2022 122/70 08/30/2022 122/70 08/23/2022 102/62 08/21/2022 122/70 07/19/2022 130/75 06/18/2022 112/74 12/18/2021 131/68 08/30/2021 124/70 06/12/2021 127/77 03/13/2021 132/73 01/26/2021 122/68 08/15/2020 162/77 06/23/2020 120/78 He notes currently with stable anxiety and depression. Doing well on Celexa. Would like to continueunchanged. No counselor, defers for now. No voiced [...] (HCC) 2018 Unspecified essential hypertension Essential hypertension Social [...] Labs today 1 mo recheck Kesha Boone APRN.OVEN BUILDER 3 mo follow up Malu Rowe MD if willing Kesha Boone APRN.CNS Medical Decision Making: Problems: Moderate: New problem with uncertain prognosis and 2+ stable chronic illnesses Data: Unique test(s) ordered: 3+ Risk: Moderate: Drug management Medical Decision Making Level: 4 - Moderate documented in this encounterPomerene Hospital07-28-2023 History of Present illness Narrative* Cele Campbell - 02/28/2023 2:51 PM EDT POPULATION HEALTH NAVIGATION OUTREACH Action/I HCC Gaps Due; F33.40 - Recurrent depressive disorder, in remission (HCC) - [id number] Last Billed 08/30/2021
[employer] Care Gaps Due; [...] Outreach HCC or suspected condition Payer: Payor: obopay MEDICARE / Plan: [employer]opay MEDICARE PPO / Product Type: PPO / Care Gap Reviewed:: Follow-up appointment Colorectal Cancer Screening Reminder: Reminder note to check Health Maintenance for items below Health Maintenance items due: SHINGRIX VACCINE(1 of 2) Never done ADVANCE DIRECTIVE DISCUSSION due on 08/04/2022 COLORECTAL CANCER SCREENING due on 10/16/2022 COVID-19 VACCINE(5 - Pfizer series) due on 10/16/2022 Navigation Signature: Cele Betts February 28, 2023 3:05 PM documented in this encounterPomerene Hospital06-20-2023 History of Present illness Narrative* Carlos A Kennedy MD - 01/21/2023 11:58 AM EDT Images from the original note were not included. [facility] V[facility] [place] DEPARTMENT OF VASCULAR SURGERY OUTPATIENT VISIT DATE January 21, 2023 OUTPATIENT VISIT TYPE ESTABLISHED SERVICE DATE: 01/21/2023 SERVICE TIME: 11:58 AM PRIMARY CARE PHYSICIAN: Kesha Boone APRN.OVEN BUILDER HISTORY OF PRESENT ILLNESS: Mr. Gomez is a 67 year old male who presents today for a vascular surgery follow-up visit. He had symptomatic carotid artery disease and underwent bilateral carotid artery endarterectomy andpatch angioplasties. His last surveillance carotid duplex demonstrated [...] Take 1 capsule by mouth once eachweek. prednisoLONE acetate (PRED FORTE) 1 % ophthalmic [...] smoking cessation and the risks of stroke, VA, and limb loss among the problems that [...] him at a 6-month interval with bilateral carotidartery duplex. 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 SIGNATURE: Carlos A Kennedy MD, MD PATIENT NAME: Denny Gomez DATE: January 21, 2023 TIME: 11:58 AM documented in this encounterPomerene Hospital06-20-2023 History of Present illness Narrative* Sherif Albrecht RN - 01/21/2023 9:45 AM EDT Radiology Service Progress Note DATE OF SERVICE: [...] Left antecubital site with a Angio cath: 20gauge. IV SITE APPEARANCE: Clean,Dry and Intact SIGNATURE: Sherif Albrecht RN PATIENT NAME: Denny Gomez DATE: January 21, 2023 TIME: 9:38 AM * ShannonRT Jaden(R) - 01/21/2023 9:45 AM EDT Radiology Service Progress Note PATIENT NAME: Denny Gomez DATE OF SERVICE: January 21, 2023 TIME: 10:24 AM PATIENT IDENTITY VERIFICATION COMPLETED USING TWO (2) IDENTIFIERS: Name and Date of confirmedby patient verbally. FALL SCREENING: Has the patient [...] Intact, Site disposition Discontinued SIGNED BY: RT Gabriella(Allison) January 21, 2023 10:24 AM documented in this encounterPomerene Hospital06-20-2023 History of Present illness Narrative* Kellie Fontenot MA - 01/21/2023 9:08 AM EDT POPULATION HEALTH NAVIGATION OUTREACH Action/FYI Return in [...] 21, 2023 9:11 AM documented in this encounterPomerene Hospital05-03-2023 Miscellaneous Notes* Telephone Encounter - Marley Sebastian - 12/04/2022 2:13 PM EDT Spoke to patient and rescheduled 01/17/[address] Kennedy on 01/21/23. Patient aware of time, date, and location with mailed reminder at the request of the patient. documented in this encounterPomerene Hospital04-17-2023 Miscellaneous Notes* Telephone Encounter - Yolanda Perez MA - 11/18/2022 12:06 PM EDT ORI 08/23/22 NOV 12/16/22 Yolanda Perez MA * Telephone Encounter - Rachana Trejo - 11/18/2022 10:59 AM EDT Patient has been identified by name and date of : Yes Requested Prescriptions Pending Prescriptions Disp Refills citalopram (CELEXA) 40 mg tablet 90 tablet 3 Sig: Take 1 tablet by mouth once daily. RX INSTRUCTIONS: Patient aware RX will be sent to pharmacy. No need to notify patient. Rachana Trejo documented in this encounterPomerene Hospital04-10-2023 Instructions* Patient Instructions* Massiel Harrell MD - 11/11/2022 8:19 AM [...] any questions please contact our office at [phone]. After office hours or on the weekend, please call Dr. Harrell on his cell phone at [phone]. documented in this encounterPomerene Hospital04-10-2023 History of Present illness Narrative* Massiel Harrell MD - 11/11/2022 8:12 AM EDT ASSESSMENT/PLAN: 1. Primary open angle glaucoma (POAG) [...] findings as obtained by the ophthalmic technical staff.I have seen and examined Denny Gomez. I have discussed the examination findings, diagnosis, and treatment options with Denny Gomez and/or his family. I have also reviewed and agree with the assessment and plan as stated above and agree with all its relevant components. I gave the patient the opportunity to ask questions about the findings, diagnosis, and treatment options. documented in this encounterPomerene Hospital04-07-2023 Instructions* Patient Instructions* Massiel Harrell MD - 11/08/2022 8:17 AM [...] any questions please contact our office at [phone]. After office hours or on the weekend, please call Dr. Harrell on his cell phone at [phone]. documented in this encounterPomerene Hospital04-07-2023 History of Present illness Narrative* Massiel Harrell MD - 11/08/2022 8:14 AM EDT ASSESSMENT/PLAN: 1. Status post cataract extraction and [...] findings as obtained by the ophthalmic technical staff.I have seen and examined Denny Gomez. I have discussed the examination findings, diagnosis, and treatment options with Denny Gomez and/or his family. I have also reviewed and agree with the assessment and plan as stated above and agree with all its relevant components. I gave the patient the opportunity to ask questions about the findings, diagnosis, and treatment options. documented in this encounterPomerene Hospital04-06-2023 NotePost Operative Note: Post-Procedure Diagnosis: 1. Primary Open Angle Glaucoma Left eye, Moderate Stage 2. 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 Cataract Extraction with Intraocular Lens Implant Left Eye with Hydrus Microstent 2. Canaloplasty Left Eye using OMNI Surgical System Surgeon: Massiel Harrell MD Resident/Fellow/Other Manager Of Production: None Estimated Blood Loss (mL): none Specimen: [...] Completion Last Updated: 07-Nov-2022 10:02 by Massiel Harrell)[facility] 11-07-2022 Miscellaneous Notes* Op Note - Massiel Harrell MD - 11/07/2022 9:55 AM EDT Post Operative Note: Post-Procedure Diagnosis: 1. Primary Open Angle Glaucoma Left eye, Moderate Stage 2. 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 Cataract Extraction with Intraocular Lens Implant Left Eye with Hydrus Microstent 2. Canaloplasty Left Eye using OMNI Surgical System Surgeon: Massiel Harrell MD Resident/Fellow/Other Manager Of Production: None Estimated Blood Loss (mL): none Specimen: [...] microscope was placed over the operative eye. Aparacentesis incision was made approximately 30 degrees away from the planned surgical incision site with the help of the MVR blade. 1% Lidocaine MPF with Phenylephrine 1.5% PF was injected into the a nterior chamber through the paracentesis incision. A near [...] was taken from the sterile wrapping, inspected underthe surgical microscope and found to be in [...] microscope was rotated to the left. Using thegonio-prism the nasal trabecular meshwork was brought into [...] Last Updated: 07-Nov-2022 10:02 by Massiel Harrell) [facility] this [facility] Work Phone: [phone]) 863-382104-06-2023 Note* Op Note - Massiel Harrell MD - 11/07/2022 9:55 AM EDT Post Operative Note: Post-Procedure Diagnosis: 1. Primary Open Angle Glaucoma Left eye, Moderate Stage 2. 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 Cataract Extraction with Intraocular Lens Implant Left Eye with Hydrus Microstent 2. Canaloplasty Left Eye using OMNI Surgical System Surgeon: Massiel Harrell MD Resident/Fellow/Other Manager Of Production: None Estimated Blood Loss (mL): none Specimen: [...] microscope was placed over the operative eye. Aparacentesis incision was made approximately 30 degrees away from the planned surgical incision site with the help of the MVR blade. 1% Lidocaine MPF with Phenylephrine 1.5% PF was injected into the a nterior chamber through the paracentesis incision. A near [...] was taken from the sterile wrapping, inspected underthe surgical microscope and found to be in [...] microscope was rotated to the left. Using thegonio-prism the nasal trabecular meshwork was brought into [...] Last Updated: 07-Nov-2022 10:02 by Massiel Harrell) [facility] Work Phone: 1(275) 868-953004-06-2023 NoteHistory & Physical Reviewed: I have reviewed the [...] Completion Last Updated: 07-Nov-2022 07:34 by Massiel Harrell)[facility] 11-07-2022 History and physical note* Massiel Harrell MD - 11/07/2022 7:33 AM EDT History & Physical Reviewed: I have reviewed [...] Last Updated: 07-Nov-2022 07:34 by Massiel Harrell) [facility] Work Phone: 1(158) 871-818904-06-2023 History and physical note* Massiel Harrell MD - 11/07/2022 7:33 AM EDT History & Physical Reviewed: I have reviewed [...] Completion Last Updated: 07-Nov-2022 07:34 by Massiel Harrell () documented in this encounterT[facility] Work Phone: 1(933) 252-973203-27-2023 Instructions* Patient Instructions* Massiel Harrell MD - 10/28/2022 10:55 AM [...] any questions please contact our office at [phone]. After office hours or on the weekend, please call Dr. Harrell on his cell phone at [phone]. documented in this encounterPomerene Hospital03-27-2023 History of Present illness Narrative* Massiel Harrell MD - 10/28/2022 10:50 AM EDT ASSESSMENT/PLAN: 1. Primary open angle glaucoma (POAG) [...] have a visually significant cataract left eye. Discussedcataract surgery with patient and different intraocular lens [...] Maluyugin Ring and/or Vision Blue during surgery. Patientunderstands the risks, benefits, and alternatives to surgery. [...] 1 Drop in the right eye three timesdaily for 3 days. 6. Optic cupping of [...] findings as obtained by the ophthalmic technical staff.I have seen and examined Denny Gomez. I [...] options. Massiel Harrell MD documented in this encounterPomerene Hospital03-24-2023 Miscellaneous Notes* Telephone Encounter - Isidra Erazo Pss - 10/25/2022 3:35 PM EDT Pharmacy verified in [facility] Patient has been identified by name and [...] advise. Isidra Erazo Pss documented in this encounterPomerene Hospital02-27-2023 Instructions* Patient Instructions* Massiel Harrell MD - 09/30/2022 11:00 AM [...] in the left eye daily at bedtime- Teallid Discontinue Atropine- red lid If you have any questions please contact our office at [phone]. After office hours or on the weekend, please call Dr. Harrell on his cell phone at [phone]. documented in this encounterPomerene Hospital02-27-2023 History of Present illness Narrative* Massiel Harrell MD - 09/30/2022 10:59 AM EST ASSESSMENT/PLAN: 1. Status post glaucoma surgery - [...] findings as obtained by the ophthalmic technical staff.I have seen and examined Denny Gomez. I have discussed the examination findings, diagnosis, and treatment options with Denny Gomez and/or his family. I have also reviewed and agree with the assessment and plan as stated above and agree with all its relevant components. I gave the patient the opportunity to ask questions about the findings, diagnosis, and treatment options. documented in this encounterP[facility]02-[facility]23 NotePost Operative Note: Post-Procedure Diagnosis: 1. Combined Form Age Related Cataract Right Eye 2. Primary Open Angle Glaucoma Right Eye, Moderate Stage Procedure: 1. Cataract Extraction with Intraocular Lens Implant Right Eye with Hydrus Microstent Implant 2. Canaloplasty Right Eye using OMNI surgical system Surgeon: Massiel Harrell MD Resident/Fellow/Other Manager Of Production: None Estimated Blood Loss (mL): none Specimen: [...] Completion Last Updated: 26-Sep-2022 11:00 by Massiel Harrell)[facility] 09-26-2022 NoteHistory & Physical Reviewed: I have reviewed the [...] Completion Last Updated: 26-Sep-2022 08:32 by Massiel Harrell)[facility] 08-30-2022 History of Past illness Narrative* Problem Noted [...] of this encounter (statuses as of 10/01/2022) [facility] of Past illness Narrative* Problem Noted [...] of this encounter (statuses as of 10/28/2022) [facility] Past illness Narrative* Problem Noted [...] of this encounter (statuses as of 10/28/2022) [facility] Narrative* Problem Noted [...] of this encounter (statuses as of 11/08/2022) [facility] Narrative* Problem Noted [...] of this encounter (statuses as of 11/11/2022) [facility] Narrative* Problem Noted [...] of this encounter (statuses as of 11/18/2022) [facility] Narrative* Problem Noted [...] of this encounter (statuses as of 12/04/2022) [facility] Narrative* Problem Noted [...] of this encounter (statuses as of 01/21/2023) [facility] Narrative* Problem Noted [...] of this encounter (statuses as of 01/21/2023) [facility] Narrative* Problem Noted [...] of this encounter (statuses as of 01/22/2023) [facility] Narrative* Problem Noted [...] of this encounter (statuses as of 03/26/2023) [facility] Narrative* Problem Noted [...] of this encounter (statuses as of 04/01/2023) [facility] Narrative* Problem Noted [...] of this encounter (statuses as of 04/17/2023) [facility] Narrative* Problem Noted [...] of this encounter (statuses as of 04/25/2023) [facility] Narrative* Problem Noted [...] of this encounter (statuses as of 04/29/2023) [facility] Narrative* Problem Noted [...] of this encounter (statuses as of 05/13/2023) [facility] Narrative* Problem Noted [...] of this encounter (statuses as of 06/08/2023) [facility] Narrative* Problem Noted [...] of this encounter (statuses as of 06/18/2023) [facility] Narrative* Problem Noted [...] as of this encounter (statuses as of 09/22/2023) [facility] Narrative* Problem Noted [...] as of this encounter (statuses as of 11/05/2023) [facility] Narrative* Problem Noted [...] as of this encounter (statuses as of 11/13/2023) [facility] Narrative* Problem Noted [...] as of this encounter (statuses as of 11/13/2023) [facility] Narrative* Problem Noted [...] as of this encounter (statuses as of 03/01/2023) [facility] History of Present illness Narrative* Kesha Boone APRN.OVEN BUILDER - 08/23/2022 8:00 AM EST SUBJECTIVE: SHINGRIX [...] Carotid Artery Stenosis Pad (Peripheral Artery Disease) (Formerly [facility]) S/P Carotid Endarterectomy H/O Ischemic Left Mca Stroke Intracranial Atherosclerosis Atherosclerosis of [place] Artery of Extremity With Intermittent Claudication ([facility]ly [facility]) Iliac Artery Injury, Left, Initial Encounter Facial Swelling Vitamin D Deficiency Recurrent Depressive Disorder, in Remission (Formerly [facility]) Presents today for preoperative visit in internal [...] stairs without CP or SOBOE. Goes to [facility] cardiology. Dr Maurer. October visit, [...] of bone Stroke (cerebrum) (HCC) Subdural hematoma 2019 Unspecified essential hypertension Essential hypertension Social [...] Testing per surgeon request today. Followed by [facility], initially seen for preoperative clearance [...] mo follow up with imaging. Kesha Boone APRN.TROY Medical Decision Making: Problems: Moderate: 2+ stable chronic illnesses Data: Unique test(s) ordered: 2 Risk: Moderate: Decision on minor surgery w/ risk factors Medical Decision Making Level: 4 - Moderate documented in this encounterPomerene Hospital12-05-2022 Miscellaneous Notes* Telephone Encounter - Kaylan [...] Thanks! Irlanda Canela APRN.GRICEL documented in this encounterPomerene Hospital11-11-2022 Miscellaneous Notes* Telephone Encounter - Yolanda Whatley RN - 06/14/2022 2:43 PM EST Reason for call: Mrs Gomez called and she would like to reschedule her husbands appointment with Dr Howard. Pt needs to be scheduled after 06/21/22. Contact Name: Betsey Gomez Home and cell number: [phone] Diagnosis: Carotid artery stenosis Kind RegardsYolanda documented in this encounterPomerene Hospital10-26-2022 History of Present illness Narrative* Anthony Watson MD - 05/29/2022 11:03 AM EDT Assessment [...] and agree withall of its relevant components. Anthony Watson MD documented in this encounterPomerene Hospital10-24-2022 Chief complaint Narrative - Reported* An interactive audio and video telecommunication system which permits real time communications between the patient (at the originating site) and provider (at the distant site) was utilized to providethis telehealth service. * Verbal consent was requested and obtained from DENNY GOMEZ on this date, 05/27/2022 10:00 AM , fora telehealth visit. * 2 mo w/ psa AW-Jwtwppr-Vupwznqu HC 232 DO Work Phone: [phone] 906-704310-24-2022 Chief complaint Narrative - Reported* An interactive audio and video telecommunication system which permits real time communications between the patient (at the originating site) and provider (at the distant site) was utilized to providethis telehealth service. * Verbal consent was requested and obtained from DENNY GOMEZ on this date, 05/27/2022 10:00 AM , fora telehealth visit. * 2 mo w/ psa OS-Wjgcsbd-Nebdbzbc HC 232 DO Work Phone: [phone] 534-439910-22-2022 History of Present illness NarrativePatient has hx [...] is taking Flomax and proscar. ED is chronic.HP-Bmdgmcy-Muzvtvaz HC 232 DO Work Phone: 1(253) 977-595510-22-2022 History of Present illness NarrativePatient has hx [...] is taking Flomax and proscar. ED is chronic.MV-Gieqpya-Kdcivsvq HC 232 DO Work Phone: 1([phone] 409-191810-12-2022 History of Present illness Narrative* Anthony Watson MD - 05/15/2022 10:38 AM EDT Assessment [...] and agree withall of its relevant components. Anthony Watson MD documented in this encounterPomerene Hospital08-01-2022 Chief complaint Narrative - Reported* An interactive audio and video telecommunication system which permits real time communications between the patient (at the originating site) and provider (at the distant site) was utilized to providethis telehealth service. * Verbal consent was requested and obtained from DENNY GOMEZ on this date, 03/04/2022 09:30 AM , fora telehealth visit. * MRI results IF-Yydcocn-Pwygpyg Work Phone: 1(576) 830-323707-22-2022 History of Present illness Narrative* Nathaly Herr LPN - 02/22/2022 9:53 AM EDT Patient presents for COVID booster. Denies any problems at this time. Tolerated injection well. Nathaly Herr LPN documented in this encounterPomerene Hospital06-13-2022 History of Present illness Narrative* Tammy Thompson [...] Care Gap or Scheduling/Wellness visits Payer: Payor: [employer] BL[employer] BLUE [employer]IELD / Plan: [employer] HMO / Product Type: HMO / Care Gap Reviewed:: Annual Wellness visit Reminder: Reminder note to check Health Maintenance for items below Health Maintenance items due: BP CONTROLLED (<130/80) due on 11/28/2019 PNEUMOCOCCAL: 64+(2 - PCV) due on 04/05/2021 ADVANCE DIRECTIVE DISCUSSION Never done Message Sent to Practice: No Navigation Signature: Tammy Thompson MA January 14, 2022 11:08 AM documented in this encounterPomerene Hospital05-25-2022 Instructions* Patient Instructions* Anthony Watson MD - 12/26/2021 11:38 AM EDT Images from the original note were not included. documented in this encounterPomerene Hospital05-25-2022 History of Present illness Narrative* Anthony Watson MD - 12/26/2021 11:35 AM EDT Assessment [...] and agree withall of its relevant components. Anthony Watson MD documented in this encounterPomerene Hospital05-17-2022 History of Present illness Narrative* Rolan Howard MD - 12/18/2021 2:26 PM EDT Images from the original note were not included. [facility] [place] DEPARTMENT OF VASCULAR SURGERY OUTPATIENT VISIT DATE [...] months with carotid duplex. Elias Xiong MD [facility] STAFF PHYSICIAN NOTE OF PERSONAL INVOLVEMENT [...] 2021 TIME: 2:38 PM documented in this encounterPomerene Hospital04-22-2022 History of Present illness NarrativePatient is here [...] taking Flomax and proscar. ED is chronic. VL-Fzfkbdw-Futxtjn Work Phone: [phone] Instructions* Patient Instructions* Anthony Watson MD - 11/06/2021 10:54 AM EDT Images from the original note were not included. documented in this encounterPomerene Hospital04-05-2022 History of Present illness Narrative* Anthony Watson MD - 11/06/2021 10:43 AM EDT Assessment [...] and agree withall of its relevant components. Anthony Watson MD documented in this encounterPomerene Hospital03-24-2022 Miscellaneous Notes* Telephone Encounter - Estee Carmen LPN - 10/25/2021 10:24 AM EDT Patient notified. Estee Carmen LPN * Telephone Encounter - Kesha Boone APRN.TROY - 10/25/2021 7:34 AM EDT Please let him know the fecal occult blood test was negative documented in this encounterPomerene Hospital11-20-2021 History of Present illness NarrativePatient presents to the office today for Urinary Incontinence x 1 week. Patient has hx of elevated PSA...Most recent PSA was 2.48 06/23.. 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 has hx [...] recent carotid artery w/stent placement done in 05/23..YG-Apzzxcm-[facility] Work Phone: 1(625) 423-129105-01-2021 History of Present illness NarrativePatient presents to [...] taking Flomax and proscar. ED is chronic. KX-Bkmcldu-Irmhxeq Work Phone: 1([phone] 188-177809-04-2020 History of Past illness Narrative* Problem Noted [...] of this encounter (statuses as of 10/25/2021) [facility] illness Narrative* Problem Noted [...] of this encounter (statuses as of 11/06/2021) [facility] illness Narrative* Problem Noted [...] of this encounter (statuses as of 12/18/2021) [facility] illness Narrative* Problem Noted [...] of this encounter (statuses as of 12/19/2021) [facility] illness Narrative* Problem Noted [...] of this encounter (statuses as of 12/26/2021) [facility] Narrative* Problem Noted [...] of this encounter (statuses as of 01/14/2022) [facility] Narrative* Problem Noted [...] of this encounter (statuses as of 02/22/2022) [facility] Narrative* Problem Noted [...] of this encounter (statuses as of 05/15/2022) [facility] Narrative* Problem Noted [...] of this encounter (statuses as of 05/29/2022) [facility] Narrative* Problem Noted [...] of this encounter (statuses as of 06/14/2022) [facility] illness Narrative* Problem Noted [...] of this encounter (statuses as of 07/08/2022) [facility] Narrative* Problem Noted [...] of this encounter (statuses as of 07/19/2022) [facility] Narrative* Problem Noted [...] of this encounter (statuses as of 08/23/2022) [facility]* Diagnosis Homonymous hemianopsia, right- Primary Dry eye syndrome of both eyes Meibomian gland dysfunction (MGD) of upper and lower lids of both eyes Optic cupping of both eyes Combined forms of age-related cataract of both eyes Other and combined forms of senile cataract Subdural hematoma (HCC) Subdural hemorrhage documented [facility] encounter [facility]* Diagnosis Onset Date Resolution Status Carotid artery stenosis 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 Essential hypertension chron ic Hyperlipidemia chronic Peripheral vascular disease [facility] Work Phone: Evaluation note* Diagnosis Bilateral carotid artery stenosis- Primary Occlusion and stenosis of carotid artery without mention of cerebral infarction documented [facility] encounter [facility]* Diagnosis Bilateral carotid artery stenosis- Primary Occlusion and stenosis of carotid artery without mention of cerebral infarction Critical lower limb ischemia (HCC) Unspecified circulatory system disorder [facility]* Diagnosis Primary open angle glaucoma (POAG) of both eyes, mild stage- Primary Homonymous hemianopsia, right Optic cupping of both eyes Dry eye syndrome of both eyes Meibomian gland dysfunction (MGD) of upper and lower lids of both eyes Combined forms of age-related cataract of both eyes Other and combined forms of senile cataract [facility]* Diagnosis Need for vaccination- Primary Need for prophylactic vaccination and inoculation against unspecified single disease [facility] encounter [facility]* Diagnosis Homonymous hemianopsia, 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 Dry eye syndrome of both eyes documented in this encounter [facility] noteNo assessment information availableWSelect Medical [facility] Work Phone: Evaluation note* Diagnosis Homonymous hemianopsia, 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 Dry eye syndrome of both eyes Primary open angle glaucoma (POAG) of both eyes, mild stage Meibomian gland dysfunction (MGD) of upper and lower lids of both eyes Combined forms of age-related cataract of both eyes Other and combined forms of senile cataract [facility]* Diagnosis Vasculopathy- Primary Unspecified circulatory system disorder Peripheral arterial disease (HCC) Peripheral vascular disease, unspecified [facility]* Diagnosis Preop exam for internal medicine- [...] Other postprocedural status [facility] Status post glaucoma surgery- Primary Status post cataract extraction and insertion of intraocular lens of right eye Primary open angle glaucoma (POAG) of right eye, moderate stage Primary open angle glaucoma (POAG) of left eye, moderate stage Combined forms of age-related cataract of left eye Other and combined forms of senile cataract [facility]* Diagnosis Primary open angle glaucoma (POAG) [...] cataract, left eye [facility]* Diagnosis Status post cataract extraction and insertion of intraocular lens of left eye- Primary Primary open angle glaucoma (POAG) of left eye, moderate stage Primary open angle glaucoma (POAG) of right eye, moderate stage Status post cataract extraction and insertion of intraocular lens of right eye [facility]* Diagnosis Primary open angle glaucoma (POAG) of right eye, moderate stage- Primary Status post cataract extraction and insertion of intraocular lens of right eye Primary open angle glaucoma (POAG) of left eye, moderate stage Status post cataract extraction and insertion of intraocular lens of left eye [facility]* Diagnosis Bilateral carotid artery stenosis- Primary Occlusion and stenosis of carotid artery without mention of cerebral infarction documented in this encounter [facility]* Diagnosis S/P carotid endarterectomy- Primary Other postprocedural status 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 H/O ischemic left MCA stroke Transient ischemic attack (TIA), and cerebral infarction without residual deficits Aneurysm of ophthalmic artery Cerebral aneurysm, nonruptured documented [facility] this [facility]* Diagnosis Vasculopathy Unspecified circulatory system disorder [facility] this [facility]* Diagnosis Memory difficulties- Primary Memory loss [...] for diabetes mellitus [facility] this [facility]* Diagnosis Elevated alkaline phosphatase level- Primary Other nonspecific abnormal serum enzyme levels Weight loss Loss of weight [facility] this [facility]* Diagnosis Weight loss- Primary Loss of weight Encounter for immunization Need for other specified prophylactic vaccination against single bacterial disease Elevated alkaline phosphatase level Other nonspecific abnormal serum enzyme levels Adenocarcinoma of prostate (HCC) Malignant neoplasm of prostate Memory difficulties Memory loss [facility] this encounter 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* Diagnosis Memory difficulties- Primary Memory loss documented in this encounter [facility]* Diagnosis Elevated alkaline phosphatase level Other nonspecific abnormal serum enzyme levels documented [facility] this [facility]* Diagnosis Primary open-angle glaucoma, left eye, moderate stage Combined forms of age-related cataract, left eye Essential (primary) hypertension Unspecified essential hypertension Peripheral vascular disease, unspecified (CMS/HCC) Peripheral vascular disease, unspecified Benign prostatic hyperplasia without lower urinary tract symptoms Personal history of transient ischemic attack (TIA), and cerebral infarction without residual deficits Anxiety disorder, unspecified Depression, unspecified FCI (current) use of 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 Tobacco use documented in this encounter [facility] Work Phone: Evaluation note* Diagnosis 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* Diagnosis Primary open angle glaucoma (POAG) of right eye, moderate stage- Primary Primary open angle glaucoma (POAG) of left eye, moderate stage 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, right Essential hypertension Unspecified essential hypertension H/O ischemic left MCA stroke Transient ischemic attack (TIA), and cerebral infarction without residual deficits [facility]* Diagnosis S/P carotid endarterectomy- Primary Other postprocedural status documented [facility]* Diagnosis Weight loss Loss of weight [facility] this 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 Weight loss Loss of weight Vitamin D deficiency Unspecified vitamin D deficiency Elevated PSA, less than 10 ng/ml Elevated prostate specific antigen (PSA) Colon cancer screening Special screening for malignant neoplasms, colon Screening for colon cancer Special screening for malignant neoplasms, colon Encounter for immunization Need for other specified prophylactic vaccination against single bacterial disease Chronic obstructive pulmonary disease, unspecified COPD type (HCC) 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* Diagnosis Erectile dysfunction, unspecified erectile dysfunction type Benign prostatic hyperplasia with lower urinary tract symptoms, symptom details unspecified Urinary frequency Nocturia documented in this encounter [facility] Work Phone: Evaluation note* Diagnosis PAD (peripheral artery disease) (HCC)- Primary Peripheral vascular disease, unspecified Tobacco abuse Tobacco use disorder Carotid aneurysm, left (HCC) Aneurysm of artery of neck [facility] this [facility]* Diagnosis Primary open angle glaucoma (POAG) of right eye, moderate stage- Primary Primary open angle glaucoma (POAG) of left eye, moderate stage 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, right Essential hypertension Unspecified essential hypertension H/O ischemic left MCA stroke Transient ischemic attack (TIA), and cerebral infarction without residual deficits [facility] Diagnosis Acute cough- Primary Chronic obstructive pulmonary disease, unspecified COPD type (HCC) [facility]* Diagnosis Chronic cough- Primary Cough Weight loss Loss of weight Vitamin D deficiency Unspecified vitamin D deficiency Smoker unmotivated to quit Tobacco use disorder [facility]* Diagnosis Chronic cough Cough Smoker unmotivated to quit Tobacco use disorder [facility]* Diagnosis Abnormality of lung on CXR- Primary [facility]* Diagnosis Abnormality of lung on CXR [facility] Diagnosis Intracranial atherosclerosis- Primary Cerebral atherosclerosis [facility] Diagnosis Nonruptured cerebral aneurysm (HCC) Cerebral aneurysm, nonruptured Occlusion and stenosis of unspecified carotid artery [facility]* Diagnosis Erectile dysfunction, unspecified erectile dysfunction type Nocturia High prostate specific antigen (PSA) Benign prostatic hyperplasia with lower urinary tract symptoms, symptom details unspecified documented in this encounter [facility] Work Phone: Evaluation note* Diagnosis Bilateral carotid artery stenosis- Primary Occlusion and stenosis of carotid artery without mention of cerebral infarction [facility]* Diagnosis Centrilobular emphysema (HCC)- Primary Other emphysema Nicotine dependence, cigarettes, uncomplicated Pulmonary nodule Solitary pulmonary nodule [facility]* Diagnosis Primary open angle glaucoma (POAG) of right eye, moderate stage- Primary Primary open angle glaucoma (POAG) of left eye, moderate stage 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, right [facility] instructions[facility] Instructions Follow-up with primary care physician and neurologist. Return back to ED if symptoms change or [facility] Work Phone: Progress note Author Conner Thorne [facility] Note Date/Time May 20, 2025 1 1:31am [facility] [address] [place] [address], [address] [place] [address] OFFICE VISIT Date of Service: 05/20/25 MR#: [id number] Acct: [id number] Name: DENNY GOMEZ Rep #: [id number] : 1955 Provider: JOCELYNN Cohen Age/Sex: 69/M Location: [facility] Status: Signed <Statement entered by Conner Thorne MD - 05/20/25 14:49> Pt seen & evaluated w/[facility]. I personally interviewed & exam the pt. I was involved in all aspects of pt's orders, interpretation of results & treatment Plan for ultrasound for the upper back central mass Follow-up after ultrasound I talked to him about the risks, benefits, and alternatives to surgery for the cyst on the face and the mass on the back. Intake Vital Signs 3 03/29/25 14:41 05/20/25 10:42 Height 5 ft 8 in 5 ft 8 in Weight: 148 lb 151 lb BMI 22.5 22.9 BP 120/79 118/72 Blood Pressure Location Lt brachial Lt brachial Position Sitting Sitting Respiration 16 18 Pulse 60 64 Pulse Source Monitor Temp 98.3 F Temp Source Oral Pulse Oximetry (%) 97 Oxygen Delivery Method room air Intake Visit Reasons: LUMP ON FOREHEAD/UPPER BACK Chief Complaint: lump on forehead and upper back Accompanied by: Is patient in pain?: No Allergies No Known Allergies Allergy (Verified 05/20/25 10:43) Medications 3 ?Medication ?Instructions ?Recorded ?Confirmed ?Type albuterol sulfate 90 mcg/actuation 2 puff inhalation Q 4H PRN PRN 11/14/18 03/29/25 Rx aerosol inhaler Wheezing ##1 citalopram 40 mg tablet 40 mg PO DAILY depression 05/20/25 History mometasone-formoterol HFA 100 2 puff inhalation BID so b 02/11/20 03/29/25 History mcg-5 mcg/actuation aerosol inhaler finasteride 5 mg tablet (Proscar) 5 mg PO DAILY 05/20/25 History tamsulosin 0.4 mg capsule (Flomax) 0.4 mg PO DAILY 05/20/25 History amlodipine 5 mg tablet 5 mg PO DAILY daily #90 tabs 03/29/25 05/20/25 Rx cholecalciferol (vitamin D3) 125 125 mcg PO QDAY 03/2903/29/25 History mcg (5,000 unit) capsule rosuvastatin 40 mg tablet (Crestor) 40 mg PO DAILY #90 tabs 03/29/25 05/20/25 Rx varenicline tartrate 1 mg tablet 1 mg PO 03/29/2503/05 History Have you fallen in the past year?: No [facility] Medical History (Updated 05/20/25 @ 11:42 by JOCELYNN Harmon) Lipoma of forehead Epidermal inclusion cyst Subcutaneous mass of back Family history of prostate problems High cholesterol Hypertension Glaucoma Depression Seasonal allergies Alcohol abuse 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 Elevated alkaline phosphatase level CVA (cerebral vascular accident) Pre-operative cardiovascular examination Peripheral vascular disease Carotid artery stenosis Anxiety and depression Vitamin D deficiency Essential hypertension Hyperlipidemia Enlarged prostate Allergies Surgical History Hx of bilateral cataract extraction (~11/07/22) Carotid artery aneurysm History of left knee surgery History of tonsillectomy Right cornea abrasion History of epidermal inclusion cyst excision Family History Mother , MOTHER FROM HEART DISEASE CAD (coronary artery disease) CVA (cerebral vascular accident) Heart disease Brother Hypertension Father , FATHER FROM BLACK LUNG, WORKED IN THE [employer] No problems noted. Brother , AT No problems noted. Brother , FROM LUNG CANCER Lung cancer Social History (Updated 05/20/25 @ 10:40 by Allison Garcia) Smoking Status: Former smoker how long ago did patient quit smoking: quit 4 months ago alcohol intake: never substance use type: does not use additional social history: pt denies vaping, denies edibles,denies marijuana use, Pt uses aspirin daily pt denies ibuprofen use, denies blood clots HPI LUMP ON FOREHEAD/UPPER BACK Details: Patient is a 69-year-old male presenting today with his and cheek, left forehead and left upper back patient. He is a former patient of Dr. Woodall's andhad several lesions drained many years ago. He denies drainage from any of the lesions. He noticed the lump on his back has been growing bigger and makes it uncomfortable to lay on it. He has history of hypertension, hyperlipidemia, carotid artery disease s/p left and right CEA, severe peripheral vascular disease. He take aspirin daily, not on any other antiplatelets or blood thinners. He denies diabetes, poor scarring or keloid formation. He's a former smoker, Denies fever, chills, unintentional weight loss, lymph node swelling. ROS Details General: Denies fever, chills HEENT: Denies headaches, vision changes, sore throat Cardio: Denies chest pain, leg edema Pulmonary: Denies shortness of pain, cough, wheezing GI: Denies nausea, vomiting, diarrhea General General: Yes good health; No fatigue, fever(s) or weight loss AMRIT HENMT: No rhinitis, sore throat/mouth sore, nasal congestion, contacts or glaucoma Endo Endocrine: Yes polydipsia; No thyroid disease, heat intolerance, cold intolerance, hepatitis or excessive urine Skin Skin: No Bleeding, bruising, changing moles or suspicious lesion Musc Musculoskeletal: No joint pain, joint stiffness, muscle weakness, back pain, osteoarthritis or Muscle aches/ myalgia Neuro Neurological: No headache(s), No lightheadedness and No numbness Cardio Cardiovascular: No chest pain, pacemaker, fatigue or shortness of breat with exertion Psych Psychiatric: Yes depression; No claustrophobia or anxiety Resp Respiratory: Yes sleep apnea, emphysema and Cough; No spitting up, shortness of breath, asthma, TB or Smoker Gastro Gastrointestinal: No diarrhea, constipation, blood in stool, nausea, vomiting orabdominal bloating Christiano Hematologic: No anemia, No bleeding and No abnormal bleeding Genitourinary: Yes urinary frequency and incontinence; No blood in urine Exam Details Normotensive/VSS. Head: No facial asymmetry, open and closes eyes, raises eyebrow. Sensation intact to light touch. Raises both arms up easily up to the air. Right cheek 1cm by 1cm epiderm inclusion cyst with black punctum, no drainage Left forehead mobile, nontender, well circumscribed soft [id number] mass Left upper back 14cm by 8.5cm mobile, nontender, well circumscribed mass No auricular, submandibular, axillary lymphadenopathy Coding Level of Care Code Off vis,new,level 2 Diagnoses Epidermal inclusion cyst L72.0 Lipoma of forehead D17.0 Subcutaneous mass of back R22.2 Assessment and Plan (No Qualifiers) Assessment and Plan (1) Epidermal inclusion cyst: Status: Acute (2) Lipoma of forehead: Status: Acute (3) Subcutaneous mass of back: Status: Acute Comment: Likely lipoma Plan March CTA head reviewed which didn't show abnormalities surrounding left forehead lesion. Will order soft tissue ultrasound for left upper back lesion and for surgical planning. Dr. Thorne discussed right cheek and forehead lesion can be done in the OR same day without need to hold aspirin and excision of the back lesion on a separate day after holding aspirin with possible intraoperative drain placement. He discussed risks of surgical intervention including bleeding, hematoma, infection, poor scarring, injury from anesthesia, need for further surgeries. Follow up in 1-2 weeks to discuss US results and pick surgical date. Clinical Quality Measures Falls Risk Screening/Assistive Devices Have you fallen in the past year?: No 05/20/25 1449 <Electronically signed by Conner Thorne MD> Date _ Conner Thorne MD 05/20/25 1147<Electronically signed by Lily CABEZAS> Cosigner Signature: Date (if applicable) Lily Acosta CC: ~ [place] [facility] Work Phone: Reason for referral (narrative)* Outpatient Procedure (Routine) - Pending Review Specialty Diagnoses / Procedures Referred By Contac t Referred To Contact [facility] Diagnoses Bilateral carotid artery stenosis Procedures US CAROTID ARTERIES DAVID VAS LAB DUPLEX SCAN EXTRACRANIAL ART COMPL BI STUDY Rolan Howard MD [address] [place] [address] [facility] [address] [address] Referral ID Status Reason Start Date Expiration Date Visits Requested Visits Authorized [id number] Pending Review Auto-Generat ed Referral 12/18/2021 12/18/2022 1 1 [facility] for referral (narrative)* Outpatient Procedure (Routine) - Closed Specialty Diagnoses / Procedures Referred By Contac t Referred To Contact [facility] Diagnoses Preop exam for internal medicine Procedures ECG COMPLETE ECG ROUTINE ECG W/LEAST 12 LDS W/I&R Kesha Boone, SYSTEM CONFIGURATION SPECIALIST.OVEN BUILDER [address] [place] [address] [facility] [address] [address] Referral ID Status Reason Start Date Expiration Date V isits Requested Visits Authorized [id number] Closed Auto-Generate d Referral 08/23/2022 08/23/2023 1 1 [facility] for referral (narrative)* Outpatient Procedure (Routine) - Authorized Specialty Diagnoses / Procedures Referred By Contac t Referred [facility] Diagnoses Bilateral carotid artery stenosis Procedures US CAROTID ARTERIES DAVID VAS LAB DUPLEX SCAN EXTRACRANIAL ART COMPL BI STUDY Carlos A Kennedy MD [address] [place] [address] [facility] [place] [address] [place] [address] Referral ID Status Reason Start Date Expiration Date Visits Requested Visits Authorized [id number] Authorized Auto-Generat ed Referral 01/21/2023 01/21/2024 1 1 [facility] for referral (narrative)* Diagnostic Procedure Only (Routine) - Authorized Specialty Diagnoses / Procedures Referred By Contac t Referred To Contact [facility] Diagnoses Elevated alkaline phosphatase level Procedures US ABD RIGHT UPPER QUADRANT US ABDOMINAL REAL TIME W/IMAGE LIMITED Kesha Boone APRN.OVEN BUILDER [address] [place] [address] [place] [address] Referral ID Status Reason Start Date Expiration Date Visits Requested Visits Authorized [id number] Authorized Auto-Generat ed Referral 04/25/2023 05/24/2024 1 1 T [facility] for referral (narrative)* Diagnostic Procedure Only (Routine) - Closed Specialty Diagnoses / Procedures Referred By Contac t Referred To Contact [facility] Diagnoses Elevated alkaline phosphatase level Procedures US ABD RIGHT UPPER QUADRANT US ABDOMINAL REAL TIME W/IMAGE LIMITED Kesha Boone APRN.CNS [address] [place] [address] [place] [address] Referral ID Status Reason Start Date Expiration Date V isits Requested Visits Authorized [id number] Closed Auto-Generate d Referral 04/25/2023 05/24/2024 1 1 [facility] for referral (narrative)* Outpatient Procedure (Routine) - Authorized Specialty Diagnoses / Procedures Referred By Harleyac t Referred To Contact [facility] Diagnoses S/P carotid endarterectomy Procedures US CAROTID ARTERIES DAVID VAS LAB DUPLEX SCAN EXTRACRANIAL ART COMPL BI STUDY Carlos A Kennedy MD [address] [place] [address] [address] Referral ID Status Reason Start Date Expiration Date Visits Requested Visits Authorized [id number] Authorized Auto-Generat ed Referral 04/01/2024 04/01/2025 1 1 * Outpatient Procedure (Routine) - Authorized Specialty Diagnoses / Procedures Referred By Trent t Referred To Contact [facility] Diagnoses S/P carotid endarterectomy Procedures PVR LEG DAVID VAS LAB NON-INVASIVE PHYSIOLOGIC STUDY EXTREMITY 3 [place] Carlos A Kennedy MD [address] [place] [address] [address] Referral ID Status Reason Start Date Expiration Date Visits Requested Visits Authorized [id number] Authorized Auto-Generat ed Referral 04/01/2024 04/01/2025 1 1 [facility] for referral (narrative)No reason for referral information availableWSelect [facility] Work Phone: Reason for visit Narrative* MRI/CT (Routine) - Closed Specialty Diagnoses / Procedures Referred By Trent t Referred To Contact CT IMAGING Diagnoses Occlusion and stenosis of unspecified carotid artery Procedures CTA NECK W IVCON CT ANGIOGRAPHY NECK W/CONTRAST/NONCONTRAST Carolin Fang MD [address] [facility] [place] [address] Phone: tel: fax: [place] [address] Referral ID Status Reason Start Date Expiration Date V isits Requested Visits Authorized [id number] Closed Auto-Generate d Referral 12/21/2024 01/20/2026 1 1 [facility] Summary Purpose Family History No Family History [...] Medical history unknown: Mot her, Father Status:Active Relationship Condition Age at Onset Recorded Date/T ezequiel mother Coronary artery disease Unknown Cerebrovascular accident (CVA) Unknown Cardiac disease Unknown brother Hypertension Unknown brother Malignant neoplasm of lung Unknown Unknown Family Member Name Dates Details Medical [...] FoundDocuments on File Type Date Recorded Patient Assistant Professor Of Spanish Expl anation Advance Directives and Livin g Will 12/27/2019 10:16 AM Documents on File Type Date Recorded Patient Assistant Professor Of Spanish Expl anation Advance Directive(s) 03/23/2020 3:18 PM Advance Directive(s) 03/20/2020 11:18 AM Advance Directive(s) 01/25/2019 8:04 PM Advance Directive Response Recorded Date/ Time Living Will No October 17, 2020 10:09pm Power of Denture Technician No October 17 10:09pm Documents on File Type Date Recorded Patient Assistant Professor Of Spanish Expl anation Advance Directive(s) 03/23/2020 3:18 PM Advance Directive(s) 03/20/2020 11:18 AM Advance Directive(s) 01/25/2019 8:04 PM Advance Directive Response Recorded Date/ Time Living Will No October 17, 2020 9:09pm Power of Denture Technician No October 17 9:09pm Advance Directive Response Recorded Date/ Time Do you have a Healthcare Power of Denture Technician? No March 07, 2025 12:48pm Advance Directive Response Recorded Date/ Time Living Will No October 17, 2020 10:09pm Do you have a Healthcare Power of Denture Technician? No October 17, 2020 10:09pm Do you have a Healthcare Power of Denture Technician? No March 07, 2025 12:48pm Hospital Course Note HNO ID: [id number] Author: Allison cohen (Kimi) Yosvany Service: Critical [...] Care Everywhere. * Edema: Leg and Ankle (German) documented in this encounter* Attachments The following attachments cannot be sent through Care Everywhere. * Edema: Leg and Ankle (German) documented in this encounter Assessments Diagnosis Peripheral edema Edema Diagnosis Mild peripheral edema Chief Complaint 6 MO F/U w/PSAPer Nurse Chief Complaint and Reason for Visit Chief Complaint 1 Y FU Reason for Visit Carotid artery steno sis Essential hypertension Hyperlipidemia Peripheral vascular disease Chief Complaint 1 y fu PREV PFM PT HEMATURIA, ABNORMAL WEIGHT LOSS Reason for Visit Carotid artery steno sis Essential hypertension Hyperlipidemia Peripheral vascular disease Chief Complaint Admit Date headache March 07, 2025 12: 00pm Chief Complaint Admit Date headache March 07, 2025 12: 00pm 1 Y FU March 29, 2025 2: 40pm Chief Complaint Admit Date headache March 07, 2025 12: 00pm 1 Y FU March 29, 2025 2: 40pm LUMP ON FOREHEAD/UPPER BACK May 10:15am Reason for Visit Admit Date Carotid artery stenosis March 29 2:40pm Essential hypertension March 29, 2025 2:40pm Hyperlipidemia March 29, 2025 2: 40pm Peripheral vascular disease March 29, 2025 2:40pm Epidermal inclusion cyst May 20, 2 025 10:15am Lipoma of forehead May 20, 2025 1 0:15am Subcutaneous mass of back May 20, 2025 10:15am Medications Administered Section Active Administered Medications - up to 3 most recent administrations Medication Order MAR Action Action Date Dose Rate Site PHENYLephrine 2.5 % 1 Drop (AK-DILATE, MARCELLA-SYNEPHRINE) 1 Drop, BOTH EYES, DIRECTED, Starting on Fri05/15/22 at 1030, Until Fri05/15/22 at 2228, Administer for dilation PROTECT FROM LIGHT Given [...] on Fri04/29/23 at 0930, Until Fri04/29/23 at 212, Administer for dilation PROTECT FROM LIGHT Given 04/29/2023 9:30 AM EDT 1 Drop proparacaine 0.5 % 1 Drop (ALCAINE) 1 Drop, BOTH EYES, DIRECTED, Starting on Fri04/29/23 at 0930, Until Fri04/29/23 at 212, Administer for pneumo tonometry, tonopen tonometry, or [...] Until Fri04/29/23 at 2129, Administer for dilation Given 04/29/2023 9:30 AM EDT 1 Drop Reason for Referral Specialty Diagnoses / Procedures Referred By Contac t Referred To Contact CT IMAGING Diagnoses Vasculopathy Procedures CTA NECK W IVCON CT ANGIOGRAPHY NECK W/CONTRAST/NONCONTRAST Rolan Howard MD [address] [facility] [address] Ct Imaging Referral ID Status Reason Start Date Expiration Date Visits Requested Visits Authorized [id number] Pending Review Auto-Generat ed Referral 2 08/18/2023 1 1 Specialty Diagnoses / Procedures Referred By Contac t Referred To Contact CT IMAGING Diagnoses Vasculopathy Procedures CTA HEAD WO/W IVCON CT ANGIOGRAPHY HEAD W/CONTRAST/NONCONTRAST Rolan Howard MD [address] [facility] [place] [place] [address] Ct Imaging Referral ID Status Reason Start Date Expiration Date Visits Requested Visits Authorized [id number] Pending Review Auto-Generat ed Referral 2 08/18/2023 1 1 Specialty Diagnoses / Procedures Referred By Contac t Referred To [facility] Diagnoses Peripheral arterial disease (HCC) Procedures PVR LEG DAVID VAS LAB NON-INVASIVE PHYSIOLOGIC STUDY EXTREMITY 3 Rolan Alvarado MD [address] [facility] [place] [address] [facility] [place] [address] [place] [address] Referral ID Status Reason Start Date Expiration Date Visits Requested Visits Authorized [id number] Authorized Auto-Generat ed Referral 2 07/19/2023 1 1 Specialty Diagnoses / Procedures Referred By Contac t Referred To Contact CT IMAGING Diagnoses Vasculopathy Procedures CTA NECK W IVCON CT ANGIOGRAPHY NECK W/CONTRAST/NONCONTRAST Rolan Howard MD [address] [facility] [place] [address] Ct Imaging Referral ID Status Reason Start Date Expiration Date V isits Requested Visits Authorized [id number] Closed Auto-Generate d Referral 07/19/2022 08/18/2023 1 1 Specialty Diagnoses / Procedures Referred By Contac t Referred To Contact CT IMAGING Diagnoses Vasculopathy Procedures CTA HEAD WO/W IVCON CT ANGIOGRAPHY HEAD W/CONTRAST/NONCONTRAST Rolan Howard MD [address] [place] [address] Ct Imaging Referral ID Status Reason Start Date Expiration Date V isits Requested Visits Authorized [id number] Closed Auto-Generate d Referral 07/19/2022 08/18/2023 1 1 Specialty Diagnoses / Procedures Referred By Contac t Referred To Contact Endocrinology Diagnoses Weight loss Elevated alkaline phosphatase level Procedures CONSULT TO ENDOCRINOLOGY OFFICE/OUTPATIENT [facility] 60-74 MINUTES Kesha Boone, SYSTEM CONFIGURATION SPECIALIST.[address] [address] Referral ID Status Reason Start Date Expiration Date Visits Requested Visits Authorized [id number] Authorized PCP Requested Referral 03/27/2023 03/26/2024 1 1 Specialty Diagnoses / Procedures Referred By Contac t Referred To Contact Endocrinology Diagnoses Paget's bone disease Kesha Boone, [facility] [address] [place] [address] rFank Cano, PSYCHOLOGICAL STRESS EVALUATOR [address] [address] Referral ID Status Reason Start Date Expiration Date Visits Requested Visits Authorized [id number] Pending Review Specialty Services Required/Pat ient's Best Interest 04/29/2023 04/28/2024 1 1 Specialty Diagnoses / Procedures Referred By Contac t Referred To Contact Gerontology / GERIATRICS Diagnoses Memory difficulties Procedures CONSULT TO GERIATRICS OFFICE/OUTPATIENT [facility] 60-74 MINUTES Kesha Boone, SYSTEM CONFIGURATION SPECIALIST.[facility] [address] [place] [address] [address] [address] [place] [address] Referral ID Status Reason Start Date Expiration Date V isits Requested Visits Authorized [id number] Closed PCP Requested Referral 05/02/2023 05/01/2024 1 1 Specialty Diagnoses / Procedures Referred By Contac t Referred To Contact Neurology Diagnoses Carotid aneurysm, left (HCC) Procedures CONSULT TO NEUROLOGY OFFICE/OUTPATIENT NEW HIGH MDM 60 MINUTES Carlos A Kennedy MD [address] [place] [address] Referral ID Status Reason Start Date Expiration Date Visits Requested Visits Authorized [id number] Pending Review PCP Requested Referral 07/19/2025 1 1 Specialty Diagnoses / Procedures Referred By Contac t Referred [facility] Diagnoses PAD (peripheral artery disease) (HCC) Procedures US LEG ARTERIAL PERIPH DAVID VAS LAB DUP-SCAN LXTR ART/ARTL BPGS COMPL BI STUDY Carlos A Kennedy MD [address] [place] [address] [facility] [place] [address] [place] [address] Referral ID Status Reason Start Date Expiration Date V isits Requested Visits Authorized [id number] Closed Auto-Generate d Referral 07/19/2024 07/19/2025 1 1 Additional Source Comments (unrecognized sect ion and content) No Status Records FoundNo Status Records FoundNo Status Records FoundNo Status Records FoundNo Status Records FoundNo Status Records FoundNo Status Records FoundNo Status Records FoundNo Status Records FoundNo Status Records FoundNo Status Records FoundNo Status Records Found INFORMATION SOURCE (unrecogn ized section and content) DATE CREATED AUTHOR 06/09/2019 [facility] DATE CREATED AUTHOR AUTHOR'S ORGANIZ ATION 01/01/2020 [facility] DATE CREATED AUTHOR AUTHOR'S ORGANIZ ATION 01/05/2020 [facility] DATE CREATED AUTHOR AUTHOR'S ORGANIZ ATION 02/21/2020 [facility] DATE CREATED AUTHOR AUTHOR'S ORGANIZ ATION 02/25/2020 [facility] DATE CREATED AUTHOR AUTHOR'S ORGANIZ ATION 01/11/2023 [facility] DATE CREATED AUTHOR AUTHOR'S ORGANIZ ATION 04/03/2023 [facility] DATE CREATED AUTHOR AUTHOR'S ORGANIZ ATION 04/12/2023 [facility] DATE CREATED AUTHOR AUTHOR'S ORGANIZ ATION 07/20/2023 [facility] DATE CREATED AUTHOR AUTHOR'S ORGANIZ ATION 01/14/2025 [facility] DATE CREATED AUTHOR AUTHOR'S ORGANIZ ATION 05/30/2025 [facility] DATE CREATED AUTHOR AUTHOR'S ORGANIZ ATION 06/07/[address] [facility] Reason for Visit (unrecogniz ed section and content) Reason Comments Leg Swelling Reason Comments Foot Swelling Ankle swelling Pt [...] Date Comments Population Health Navigation Outreach 01/14/2022 [facility] Reason Comments Imm/Inj Reason Comments Dry [...] CT ANGIOGRAPHY NECK W/CONTRAST/NONCONTRAST Rolan Howard MD [address] [place] [address] Ct Imaging Referral ID Status Reason Start Date Expiration Date V isits Requested Visits Authorized [id number] Closed Auto-Generate d Referral 07/19/2022 08/18/2023 1 [...] US Specialty Diagnoses / Procedures Referred By Trent hancock Referred To Contact US IMAGING Diagnoses Elevated alkaline phosphatase level Procedures US ABD RIGHT UPPER QUADRANT US ABDOMINAL REAL TIME W/IMAGE LIMITED Kesha Boone, SYSTEM CONFIGURATION SPECIALIST.[facility] [address] [place] [address] [place] [address] Referral ID Status Reason Start Date Expiration Date V isits Requested Visits Authorized [id number] Closed Auto-Generate d Referral 04/25/2023 05/24/2024 1 1 Reason Comments Question Reason Comments Other Primary open-angle g laucoma, left eye, moderate stage , Combined forms of age-related cataract, left eye Reason Comments Pagets Disease Specialty Diagnoses / Procedures Referred By Trent hancock Referred To Contact Endocrinology Diagnoses Paget's bone disease Kesha Boone, [facility] [address] [place] [address] Frank Cano, GRICEL [address] [address] Referral ID Status Reason Start Date Expiration Date Visits Requested Visits Authorized [id number] Pending Review Specialty Services Required/Pat ient's Best Interest 04/29/2023 04/28/2024 1 1 Reason Onset Date Comments Refill Request 09/19/2023 Reason Comments Non-Chemotherapy Treatment Specialty Diagnoses / Procedures Referred By Trent hancock Referred To Contact Diagnoses Paget's bone disease Procedures INJECTION, ZOLEDRONIC ACID, 1 MG Christine Greene MD [address] [place] [address] [facility] [address] [place] [address] Referral ID Status Reason Start Date Expiration Date V isits Requested Visits Authorized [id number] Authorized 11/05/2023 08/03/2024 99 99 Reason Comments 6 mo follow up Reason Comments Benefits Investigation Reason Comments Primary Open Angle Glaucoma Follow Up Specialty Diagnoses / Procedures Referred By Trent hancock Referred To Contact Ophthalmology / OPHTHALMOLOGY Diagnoses Encounter for follow-up examination after completed treatment for conditions other than malignant neoplasm VF/FP Procedures OFFICE/OUTPATIENT ESTABLISHED SF MDM 10 MIN OFFICE/OUTPATIENT ESTABLISHED LOW MDM 20 MIN OFFICE/OUTPATIENT ESTABLISHED MOD MDM 30 MIN OFFICE/OUTPATIENT ESTABLISHED HIGH MDM 40 MIN EST ADULT Massiel Harrell MD [address] [place] [address] Massiel Harrell MD [address] [place] [address] Referral ID Status Reason Start Date Expiration Date V isits Requested Visits Authorized [id number] Authorized 03/02/2024 08/03/2024 1 99 Reason Comments F/U 6 Month Reason Comments Recheck Follow up from visit please let him know that on review of his chart it looks like he should be following up with his manager equity in June. Schedule if willing. Also looks like Reason Comments Paget's Disease Of Bone Received Reclast infusion 11/13/2023 Specialty Diagnoses / Procedures Referred By Trent hancock Referred To Contact Endocrinology / ENDOCRINOLOGY Diagnoses Follow up Procedures EST DAVID PATIENT Self Christine Greene MD [address] [place] [address] Referral ID Status Reason Start Date Expiration Date V isits Requested Visits Authorized [id number] Authorized 04/30/2024 08/03/2024 99 99 Reason Comments Cough Chest congestion, ST , sinus drainage, bodyaches x3 days Reason Onset Date Comments Population Health Navigation Outreach 02/28/2023 [employer] [facility] Reason Comments 3 months with PSA Reason Comments Established Patient Specialty Diagnoses / Procedures Referred By Trent hancock Referred To Contact Vascular Surgery / VASCULAR SURGERY Diagnoses Encounter for follow-up examination after completed treatment for conditions other than malignant neoplasm 1 Year W/ Carotid & Full PVR Procedures OFFICE/OUTPATIENT ESTABLISHED SF MDM 10 MIN OFFICE/OUTPATIENT ESTABLISHED LOW MDM 20 MIN OFFICE/OUTPATIENT ESTABLISHED MOD MDM 30 MIN OFFICE/OUTPATIENT ESTABLISHED HIGH MDM 40 MIN EST PATIENT Carlos A Kennedy MD [address] [id number] Carlos A Kennedy MD [address] [facility] [place] [address] Referral ID Status Reason Start Date Expiration Date Visits Re quested Visits Authorized [id number] Closed 06/24/2024 08/03/2024 1 1 Reason Comments Primary Open Angle Glaucoma Follow Up Duncan th eyes- Patient here per instruction for intraocular pressure check Specialty Diagnoses / Procedures Referred By Trent hancock Referred To Contact Ophthalmology / OPHTHALMOLOGY Diagnoses Primary open-angle glaucoma, right eye, moderate stage vf/fp return in 6 months Procedures OPHTH MEDICAL XM&EVAL INTERMEDIATE ESTAB PT EST ADULT Massiel Harrell MD [address] [place] [address] Phone: tel: fax: Massiel Harrell MD [address] [place] [address] Phone: tel: fax: Referral ID Status Reason Start Date Expiration Date Visits Re quested Visits Authorized [id number] Closed 09/08/2024 08/03/2025 1 1 Reason Comments Cough Nasal Congestion Reason Onset Date Comments Results 09/28/2024 Reason Comments F/U 6 months is a smoker and woul d like to have chest checked Reason Comments Radiology CT Specialty Diagnoses / Procedures Referred By Trent hancock Referred To Contact CT IMAGING Diagnoses Abnormality of lung on CXR Procedures CT CHEST WO IVCON DIAGNOSTIC COMPUTED TOMOGRAPHY THORAX W/O CNTRST Malu Rowe MD [address] [place] [address] Phone: tel: fax: [place] [phone] Referral ID Status Reason Start Date Expiration Date V isits Requested Visits Authorized [id number] Closed Auto-Generate d Referral 10/31/2024 11/30/2025 1 1 Reason Onset Date Comments Results 10/31/2024 CXR Reason Onset Date Comments Results 10/31/2024 labwork Reason Comments Results CT scan results Reason Comments Medication Request Reason Comments COPD Isidra Becker RN - 12/27/2019 10:27 AM Isidra Jones RN - 12/27/2019 9:44 AM INGRIDTCArthur yanez MD - 12/27/2019 9:38 AM Isidra Jones RN - 12/27/2019 9:34 AM EDT ED Notes (unrecognized secti on and content) DISCHARGE PAPERWORK RECEIVED, REGISTRATION CARTSIDE. XRAY CARTSIDE, PLAN OF CARE REVIEWED WITH PATIENT, DENIES CURRENT NEEDS, CALL LIGHT IN REACH. [facility] ED Attending Note: NAME: Denny Gomez 64 y.o. CSN: [id number] PCP: No primary care provider on file. [...] file Gets together: Not on file Attends judaism service: Not on file Active member of [...] C) 75 (!) 20 98 % 5' 8" 74.8 kg (165 lb) Physical Exam Constitutional: [...] Procedure Abnormality Status --------- ------ CBC Auto Differential[[id number]] Abnormal Final result Please view results for [...] being discharged to home Arthur Carcamo MD [facility] Emergency Department (Please note that portions of [...] or prosecute any alcohol or drug abuse patient.[facility] HospitalIn the event this information is protected by the Federal Confidentiality of Alcohol and Drug Abuse Patient Records regulations: The Federal rules restrict any use of the information to criminally investigate or prosecute any alcohol or drug abuse patient.[facility] HospitalIn the event this information is protected by the Federal Confidentiality of Alcohol and Drug Abuse Patient Records regulations: The Federal rules restrict any use of the information to criminally investigate or prosecute any alcohol or drug abuse patient.[facility] HospitalIn the event this information is protected by the Federal Confidentiality of Alcohol and Drug Abuse Patient Records regulations: The Federal rules restrict any use of the information to criminally investigate or prosecute any alcohol or drug abuse patient.[facility] HospitalIn the event this information is protected by the Federal Confidentiality of Alcohol and Drug Abuse Patient Records regulations: The Federal rules restrict any use of the information to criminally investigate or prosecute any alcohol or drug abuse patient.[facility] HospitalIn the event this information is protected by the Federal Confidentiality of Alcohol and Drug Abuse Patient Records regulations: The Federal rules restrict any use of the information to criminally investigate or prosecute any alcohol or drug abuse patient.[facility] HospitalIn the event this information is protected by the Federal Confidentiality of Alcohol and Drug Abuse Patient Records regulations: The Federal rules restrict any use of the information to criminally investigate or prosecute any alcohol or drug abuse patient.[facility] HospitalIn the event this information is protected by the Federal Confidentiality of Alcohol and Drug Abuse Patient Records regulations: The Federal rules restrict any use of the information to criminally investigate or prosecute any alcohol or drug abuse patient.[facility] HospitalIn the event this information is protected by the Federal Confidentiality of Alcohol and Drug Abuse Patient Records regulations: The Federal rules restrict any use of the information to criminally investigate or prosecute any alcohol or drug abuse patient.[facility] HospitalIn the event this information is protected by the Federal Confidentiality of Alcohol and Drug Abuse Patient Records regulations: The Federal rules restrict any use of the information to criminally investigate or prosecute any alcohol or drug abuse patient.[facility] HospitalIn the event this information is protected by the Federal Confidentiality of Alcohol and Drug Abuse Patient Records regulations: The Federal rules restrict any use of the information to criminally investigate or prosecute any alcohol or drug abuse patient.[facility] HospitalIn the event this information is protected by the Federal Confidentiality of Alcohol and Drug Abuse Patient Records regulations: The Federal rules restrict any use of the information to criminally investigate or prosecute any alcohol or drug abuse patient.[facility] HospitalIn the event this information is protected by the Federal Confidentiality of Alcohol and Drug Abuse Patient Records regulations: The Federal rules restrict any use of the information to criminally investigate or prosecute any alcohol or drug abuse patient.[facility] HospitalIn the event this information is protected by the Federal Confidentiality of Alcohol and Drug Abuse Patient Records regulations: The Federal rules restrict any use of the information to criminally investigate or prosecute any alcohol or drug abuse patient.[facility] HospitalIn the event this information is protected by the Federal Confidentiality of Alcohol and Drug Abuse Patient Records regulations: The Federal rules restrict any use of the information to criminally investigate or prosecute any alcohol or drug abuse patient.[facility] HospitalIn the event this information is protected by the Federal Confidentiality of Alcohol and Drug Abuse Patient Records regulations: The Federal rules restrict any use of the information to criminally investigate or prosecute any alcohol or drug abuse patient.[facility] HospitalIn the event this information is protected by the Federal Confidentiality of Alcohol and Drug Abuse Patient Records regulations: The Federal rules restrict any use of the information to criminally investigate or prosecute any alcohol or drug abuse patient.[facility] HospitalIn the event this information is protected by the Federal Confidentiality of Alcohol and Drug Abuse Patient Records regulations: The Federal rules restrict any use of the information to criminally investigate or prosecute any alcohol or drug abuse patient.[facility] HospitalIn the event this information is protected by the Federal Confidentiality of Alcohol and Drug Abuse Patient Records regulations: The Federal rules restrict any use of the information to criminally investigate or prosecute any alcohol or drug abuse patient.[facility] HospitalIn the event this information is protected by the Federal Confidentiality of Alcohol and Drug Abuse Patient Records regulations: The Federal rules restrict any use of the information to criminally investigate or prosecute any alcohol or drug abuse patient.[facility] HospitalIn the event this information is protected by the Federal Confidentiality of Alcohol and Drug Abuse Patient Records regulations: The Federal rules restrict any use of the information to criminally investigate or prosecute any alcohol or drug abuse patient.[facility] HospitalIn the event this information is protected by the Federal Confidentiality of Alcohol and Drug Abuse Patient Records regulations: The Federal rules restrict any use of the information to criminally investigate or prosecute any alcohol or drug abuse patient.[facility] HospitalIn the event this information is protected by the Federal Confidentiality of Alcohol and Drug Abuse Patient Records regulations: The Federal rules restrict any use of the information to criminally investigate or prosecute any alcohol or drug abuse patient.[facility] HospitalIn the event this information is protected by the Federal Confidentiality of Alcohol and Drug Abuse Patient Records regulations: The Federal rules restrict any use of the information to criminally investigate or prosecute any alcohol or drug abuse patient.[facility] HospitalIn the event this information is protected by the Federal Confidentiality of Alcohol and Drug Abuse Patient Records regulations: The Federal rules restrict any use of the information to criminally investigate or prosecute any alcohol or drug abuse patient.[facility] HospitalIn the event this information is protected by the Federal Confidentiality of Alcohol and Drug Abuse Patient Records regulations: The Federal rules restrict any use of the information to criminally investigate or prosecute any alcohol or drug abuse patient.[facility] HospitalIn the event this information is protected by the Federal Confidentiality of Alcohol and Drug Abuse Patient Records regulations: The Federal rules restrict any use of the information to criminally investigate or prosecute any alcohol or drug abuse patient.[facility] HospitalIn the event this information is protected by the Federal Confidentiality of Alcohol and Drug Abuse Patient Records regulations: The Federal rules restrict any use of the information to criminally investigate or prosecute any alcohol or drug abuse patient.[facility] HospitalIn the event this information is protected by the Federal Confidentiality of Alcohol and Drug Abuse Patient Records regulations: The Federal rules restrict any use of the information to criminally investigate or prosecute any alcohol or drug abuse patient.[facility] HospitalIn the event this information is protected by the Federal Confidentiality of Alcohol and Drug Abuse Patient Records regulations: The Federal rules restrict any use of the information to criminally investigate or prosecute any alcohol or drug abuse patient.[facility] HospitalIn the event this information is protected by the Federal Confidentiality of Alcohol and Drug Abuse Patient Records regulations: The Federal rules restrict any use of the information to criminally investigate or prosecute any alcohol or drug abuse patient.[facility] HospitalIn the event this information is protected by the Federal Confidentiality of Alcohol and Drug Abuse Patient Records regulations: The Federal rules restrict any use of the information to criminally investigate or prosecute any alcohol or drug abuse patient.[facility] HospitalIn the event this information is protected by the Federal Confidentiality of Alcohol and Drug Abuse Patient Records regulations: The Federal rules restrict any use of the information to criminally investigate or prosecute any alcohol or drug abuse patient.[facility] HospitalIn the event this information is protected by the Federal Confidentiality of Alcohol and Drug Abuse Patient Records regulations: The Federal rules restrict any use of the information to criminally investigate or prosecute any alcohol or drug abuse patient.[facility] HospitalIn the event this information is protected by the Federal Confidentiality of Alcohol and Drug Abuse Patient Records regulations: The Federal rules restrict any use of the information to criminally investigate or prosecute any alcohol or drug abuse patient.[facility] HospitalIn the event this information is protected by the Federal Confidentiality of Alcohol and Drug Abuse Patient Records regulations: The Federal rules restrict any use of the information to criminally investigate or prosecute any alcohol or drug abuse patient.[facility] HospitalIn the event this information is protected by the Federal Confidentiality of Alcohol and Drug Abuse Patient Records regulations: The Federal rules restrict any use of the information to criminally investigate or prosecute any alcohol or drug abuse patient.[facility] HospitalIn the event this information is protected by the Federal Confidentiality of Alcohol and Drug Abuse Patient Records regulations: The Federal rules restrict any use of the information to criminally investigate or prosecute any alcohol or drug abuse patient.[facility] HospitalIn the event this information is protected by the Federal Confidentiality of Alcohol and Drug Abuse Patient Records regulations: The Federal rules restrict any use of the information to criminally investigate or prosecute any alcohol or drug abuse patient.[facility] HospitalIn the event this information is protected by the Federal Confidentiality of Alcohol and Drug Abuse Patient Records regulations: The Federal rules restrict any use of the information to criminally investigate or prosecute any alcohol or drug abuse patient.[facility] HospitalIn the event this information is protected by the Federal Confidentiality of Alcohol and Drug Abuse Patient Records regulations: The Federal rules restrict any use of the information to criminally investigate or prosecute any alcohol or drug abuse patient.[facility] HospitalIn the event this information is protected by the Federal Confidentiality of Alcohol and Drug Abuse Patient Records regulations: The Federal rules restrict any use of the information to criminally investigate or prosecute any alcohol or drug abuse patient.[facility] HospitalIn the event this information is protected by the Federal Confidentiality of Alcohol and Drug Abuse Patient Records regulations: The Federal rules restrict any use of the information to criminally investigate or prosecute any alcohol or drug abuse patient.[facility] HospitalIn the event this information is protected by the Federal Confidentiality of Alcohol and Drug Abuse Patient Records regulations: The Federal rules restrict any use of the information to criminally investigate or prosecute any alcohol or drug abuse patient.[facility] HospitalIn the event this information is protected by the Federal Confidentiality of Alcohol and Drug Abuse Patient Records regulations: The Federal rules restrict any use of the information to criminally investigate or prosecute any alcohol or drug abuse patient.[facility] HospitalIn the event this information is protected by the Federal Confidentiality of Alcohol and Drug Abuse Patient Records regulations: The Federal rules restrict any use of the information to criminally investigate or prosecute any alcohol or drug abuse patient.[facility] HospitalIn the event this information is protected by the Federal Confidentiality of Alcohol and Drug Abuse Patient Records regulations: The Federal rules restrict any use of the information to criminally investigate or prosecute any alcohol or drug abuse patient.[facility] HospitalIn the event this information is protected by the Federal Confidentiality of Alcohol and Drug Abuse Patient Records regulations: The Federal rules restrict any use of the information to criminally investigate or prosecute any alcohol or drug abuse patient.[facility] HospitalIn the event this information is protected by the Federal Confidentiality of Alcohol and Drug Abuse Patient Records regulations: The Federal rules restrict any use of the information to criminally investigate or prosecute any alcohol or drug abuse patient.[facility] HospitalIn the event this information is protected by the Federal Confidentiality of Alcohol and Drug Abuse Patient Records regulations: The Federal rules restrict any use of the information to criminally investigate or prosecute any alcohol or drug abuse patient.[facility] HospitalIn the event this information is protected by the Federal Confidentiality of Alcohol and Drug Abuse Patient Records regulations: The Federal rules restrict any use of the information to criminally investigate or prosecute any alcohol or drug abuse patient.[facility] HospitalIn the event this information is protected by the Federal Confidentiality of Alcohol and Drug Abuse Patient Records regulations: The Federal rules restrict any use of the information to criminally investigate or prosecute any alcohol or drug abuse patient.[facility] HospitalIn the event this information is protected by the Federal Confidentiality of Alcohol and Drug Abuse Patient Records regulations: The Federal rules restrict any use of the information to criminally investigate or prosecute any alcohol or drug abuse patient.[facility] HospitalIn the event this information is protected by the Federal Confidentiality of Alcohol and Drug Abuse Patient Records regulations: The Federal rules restrict any use of the information to criminally investigate or prosecute any alcohol or drug abuse patient.[facility] HospitalIn the event this information is protected by the Federal Confidentiality of Alcohol and Drug Abuse Patient Records regulations: The Federal rules restrict any use of the information to criminally investigate or prosecute any alcohol or drug abuse patient.[facility] HospitalIn the event this information is protected by the Federal Confidentiality of Alcohol and Drug Abuse Patient Records regulations: The Federal rules restrict any use of the information to criminally investigate or prosecute any alcohol or drug abuse patient.[facility] HospitalIn the event this information is protected by the Federal Confidentiality of Alcohol and Drug Abuse Patient Records regulations: The Federal rules restrict any use of the information to criminally investigate or prosecute any alcohol or drug abuse patient.[facility] HospitalIn the event this information is protected by the Federal Confidentiality of Alcohol and Drug Abuse Patient Records regulations: The Federal rules restrict any use of the information to criminally investigate or prosecute any alcohol or drug abuse patient.[facility] HospitalIn the event this information is protected by the Federal Confidentiality of Alcohol and Drug Abuse Patient Records regulations: The Federal rules restrict any use of the information to criminally investigate or prosecute any alcohol or drug abuse patient.[facility] HospitalIn the event this information is protected by the Federal Confidentiality of Alcohol and Drug Abuse Patient Records regulations: The Federal rules restrict any use of the information to criminally investigate or prosecute any alcohol or drug abuse patient.[facility] HospitalIn the event this information is protected by the Federal Confidentiality of Alcohol and Drug Abuse Patient Records regulations: The Federal rules restrict any use of the information to criminally investigate or prosecute any alcohol or drug abuse patient.[facility] HospitalIn the event this information is protected by the Federal Confidentiality of Alcohol and Drug Abuse Patient Records regulations: The Federal rules restrict any use of the information to criminally investigate or prosecute any alcohol or drug abuse patient.[facility] HospitalIn the event this information is protected by the Federal Confidentiality of Alcohol and Drug Abuse Patient Records regulations: The Federal rules restrict any use of the information to criminally investigate or prosecute any alcohol or drug abuse patient.[facility] HospitalIn the event this information is protected by the Federal Confidentiality of Alcohol and Drug Abuse Patient Records regulations: The Federal rules restrict any use of the information to criminally investigate or prosecute any alcohol or drug abuse patient.[facility] HospitalIn the event this information is protected by the Federal Confidentiality of Alcohol and Drug Abuse Patient Records regulations: The Federal rules restrict any use of the information to criminally investigate or prosecute any alcohol or drug abuse patient.[facility] HospitalIn the event this information is protected by the Federal Confidentiality of Alcohol and Drug Abuse Patient Records regulations: The Federal rules restrict any use of the information to criminally investigate or prosecute any alcohol or drug abuse patient.[facility] HospitalIn the event this information is protected by the Federal Confidentiality of Alcohol and Drug Abuse Patient Records regulations: The Federal rules restrict any use of the information to criminally investigate or prosecute any alcohol or drug abuse patient.[facility] Care Teams (unrecognized sec tion and content) Wind Development Director Relationship Specialty Start Date End Date Malu Rowe MD [address] [place], [place] [id number] PCP - General Internal Medicine 07/12/16 Weston Crespo MD [address] [place] [address] Consulting Neurosurgery 01/26/19 Wind Development Director Relationship Specialty Start Date End Date Malu Rowe MD [address] [place], [place] [id number] PCP - General Internal Medicine 07/12/16 Weston Crespo MD [address] [facility] [place] [address] Consulting Neurosurgery 01/26/19 Wind Development Director Relationship Specialty Start Date End Date Malu Rowe MD [address] [facility] [place] [address] PCP - General Internal Medicine 07/12/16 Weston Crespo MD [address] [facility] [place] [address] Consulting Neurosurgery 01/26/19 Wind Development Director Relationship Specialty Start Date End Date Malu Rowe MD [address] [facility] [place] [address] PCP - General Internal Medicine 07/12/16 Weston Crespo MD [address] [facility] [place] [address] Consulting Neurosurgery 01/26/19 Wind Development Director Relationship Specialty Start Date End Date Malu Rowe MD [address] [facility] [place] [address] PCP - General Internal Medicine 07/12/16 Weston Crespo MD [address] [facility] [place] [address] Consulting Neurosurgery 01/26/19 Wind Development Director Relationship Specialty Start Date End Date Malu Rowe MD [address] [facility] [place] [address] PCP - General Internal Medicine 07/12/16 Weston Crespo MD [address] [facility] [place] [address] Consulting Neurosurgery 01/26/19 Wind Development Director Relationship Specialty Start Date End Date Malu Rowe MD [address] [facility] [place] [address] PCP - General Internal Medicine 07/12/16 Weston Crespo MD [address] [facility] [place] [address] Consulting Neurosurgery 01/26/19 Wind Development Director Relationship Specialty Start Date End Date Malu Rowe MD [address] [facility] [place] [address] PCP - General Internal Medicine 07/12/16 Weston Crespo MD [address] [facility] [place] [address] Consulting Neurosurgery 01/26/19 Wind Development Director Relationship Specialty Start Date End Date Malu Rowe MD [address] [facility] [place] [address] PCP - General Internal Medicine 07/12/16 Weston Crespo MD [address] [facility] [place] [address] Consulting Neurosurgery 01/26/19 Wind Development Director Relationship Specialty Start Date End Date Malu Rowe MD [address] [facility] [place] [address] PCP - General Internal Medicine 07/12/16 Weston Crespo MD [address] [facility] [place] [address] Consulting Neurosurgery 01/26/19 Wind Development Director Relationship Specialty Start Date End Date Malu Rowe MD [address] [facility] [place] [address] PCP - General Internal Medicine 07/12/16 Weston Crespo MD [address] [facility] [place] [address] Consulting Neurosurgery 01/26/19 Wind Development Director Relationship Specialty Start Date End Date Kesha Boone, SYSTEM CONFIGURATION SPECIALIST.OVEN BUILDER [address] [place] [address] PCP - General Internal Medicine 08/21/22 Weston Crespo MD [address] [facility] [address] Consulting Neurosurgery 01/26/19 Wind Development Director Relationship Specialty Start Date End Date Kesha Boone, SYSTEM CONFIGURATION SPECIALIST.OVEN BUILDER [address] [facility] [place] [place] [address] PCP - General Internal Medicine 08/21/22 Weston Crespo MD [address] [facility] [address] Consulting Neurosurgery 01/26/19 Wind Development Director Relationship Specialty Start Date End Date Kesha Boone, SYSTEM CONFIGURATION SPECIALIST.OVEN BUILDER [address] [place] [address] PCP - General Internal Medicine 08/21/22 Weston Crespo MD [address] [facility] [place] [address] Consulting Neurosurgery 01/26/19 Wind Development Director Relationship Specialty Start Date End Date Kesha Boone, SYSTEM CONFIGURATION SPECIALIST.OVEN BUILDER [address] [place] [address] PCP - General Internal Medicine 08/21/22 Weston Crespo MD [address] [facility] [place] [address] Consulting Neurosurgery 01/26/19 Wind Development Director Relationship Specialty Start Date End Date Kesha Boone, SYSTEM CONFIGURATION SPECIALIST.OVEN BUILDER [address] [place] [address] PCP - General Internal Medicine 08/21/22 Weston Crespo MD [address] [place] [address] Consulting Neurosurgery 01/26/19 Wind Development Director Relationship Specialty Start Date End Date Kesha Boone, SYSTEM CONFIGURATION SPECIALIST.OVEN BUILDER [address] [place] [address] PCP - General Internal Medicine 08/21/22 Weston Crespo MD [address] [facility] [place] [address] Consulting Neurosurgery 01/26/19 Wind Development Director Relationship Specialty Start Date End Date Kesha Boone, SYSTEM CONFIGURATION SPECIALIST.OVEN BUILDER [address] [place] [address] PCP - General Internal Medicine 08/21/22 Weston Crespo MD [address] [facility] [address] Consulting Neurosurgery 01/26/19 Wind Development Director Relationship Specialty Start Date End Date Kesha Boone, SYSTEM CONFIGURATION SPECIALIST.OVEN BUILDER [address] [facility] [place] [address] PCP - General Internal Medicine 08/21/22 Weston Crespo MD [address] [facility] [place] [address] Consulting Neurosurgery 01/26/19 Wind Development Director Relationship Specialty Start Date End Date Kesha Boone, SYSTEM CONFIGURATION SPECIALIST.OVEN BUILDER [address] [facility] [place] [address] PCP - General Internal Medicine 08/21/22 Weston Crespo MD [address] [facility] [place] [address] Consulting Neurosurgery 01/26/19 Wind Development Director Relationship Specialty Start Date End Date Kesha Boone, SYSTEM CONFIGURATION SPECIALIST.OVEN BUILDER [address] [place], [place] 834201 PCP - General Internal Medicine 08/21/22 Weston Crespo MD [address] [facility] [place] [address] Consulting Neurosurgery 01/26/19 Wind Development Director Relationship Specialty Start Date End Date Kesha Boone, SYSTEM CONFIGURATION SPECIALIST.OVEN BUILDER [address] [place] [address] PCP - General Internal Medicine 08/21/22 Weston Crespo MD [address] [facility] [place] [address] Consulting Neurosurgery 01/26/19 Wind Development Director Relationship Specialty Start Date End Date Kesha Boone, SYSTEM CONFIGURATION SPECIALIST.OVEN BUILDER [address] [place] [address] PCP - General Internal Medicine 08/21/22 Weston Crespo MD [address] [facility] [place] [address] Consulting Neurosurgery 01/26/19 Wind Development Director Relationship Specialty Start Date End Date Kesha Boone, SYSTEM CONFIGURATION SPECIALIST.OVEN BUILDER [address] [place], [place] 524695 [phone] PCP - General Internal Medicine 08/21/22 Weston Crespo MD [address] [facility] [place] [address] Consulting Neurosurgery 01/26/19 Wind Development Director Relationship Specialty Start Date End Date Kesha Boone, SYSTEM CONFIGURATION SPECIALIST.OVEN BUILDER [address] [place], [place] 509571 PCP - General Internal Medicine 08/21/22 Weston Crespo MD [address] [facility] [place] [address] Consulting Neurosurgery 01/26/19 Wind Development Director Relationship Specialty Start Date End Date Kesha Boone, SYSTEM CONFIGURATION SPECIALIST.OVEN BUILDER [address] [place], [place] 594291 PCP - General Internal Medicine 08/21/22 Weston Crespo MD [address] [facility] [place] [address] Consulting Neurosurgery 01/26/19 Team Status: Active Member Role Status Dates Dr. Malu Rowe MD Family Provider Active Dr. Malu Rowe MD Primary Care Provider Active Team Status: Inactive Member Role Status Dates Dr. Malu Rowe MD Primary Care Provider, Referr ing Provider Active Beth Funk AUTOMATIC CHIEF, AUTOMATIC CHIEF-C Attending Provider Active Team Status: Inactive Member Role Status Dates Dr. Malu Rowe MD Primary Care Provider Active Dr. Elias Rider II, MD Attending Provider, Referring Pro vider Active Wind Development Director Relationship Specialty Start Date End Date Malu Rowe MD [address] [place], [place] [phone] PCP - General Internal Medicine 12/27/19 Wind Development Director Relationship Specialty Start Date End Date Kesha Boone, SYSTEM CONFIGURATION SPECIALIST.OVEN BUILDER [address] [place] [address] PCP - General Internal Medicine 08/21/22 Weston Crespo MD [address] [facility] [place] [address] Consulting Neurosurgery 01/26/19 Wind Development Director Relationship Specialty Start Date End Date Malu Rowe MD [address] [facility] [place] [place] [address] PCP - General Internal Medicine 05/02/23 Weston Crespo MD [address] [facility] [place] [address] Consulting Neurosurgery 01/26/19 Wind Development Director Relationship Specialty Start Date End Date Kesha Boone, SYSTEM CONFIGURATION SPECIALIST.OVEN BUILDER [address] [place] [address] PCP - General Internal Medicine 08/21/22 05/01/23 Weston Crespo MD [address] [facility] [place] [address] Consulting Neurosurgery 01/26/19 Wind Development Director Relationship Specialty Start Date End Date Malu Rowe MD [address] [place] [address] PCP - General Internal Medicine 05/02/23 Weston Crespo MD [address] [facility] [place] [address] Consulting Neurosurgery 01/26/19 Wind Development Director Relationship Specialty Start Date End Date Malu Rowe MD [address] [place] [address] PCP - General Internal Medicine 12/27/19 Wind Development Director Relationship Specialty Start Date End Date Malu Rowe MD [address] [place] [address] PCP - General Internal Medicine 05/02/23 Weston Crespo MD [address] [facility] [place] [address] Consulting Neurosurgery 01/26/19 Wind Development Director Relationship Specialty Start Date End Date Malu Rowe MD [address] [place] [address] PCP - General Internal Medicine 05/02/23 Weston Crespo MD [address] [facility] [place] [address] Consulting Neurosurgery 01/26/19 Wind Development Director Relationship Specialty Start Date End Date Malu Rowe MD [address] [place] [address] PCP - General Internal Medicine 05/02/23 Weston Crespo MD [address] [facility] [place] [address] Consulting Neurosurgery 01/26/19 Wind Development Director Relationship Specialty Start Date End Date Malu Rowe MD [address] [place] [address] PCP - General Internal Medicine 05/02/23 Weston Crespo MD [address] [facility] [place] [address] Consulting Neurosurgery 01/26/19 Wind Development Director Relationship Specialty Start Date End Date Malu Rowe MD [address] [place] [address] PCP - General Internal Medicine 05/02/23 Weston Crespo MD [address] [facility] [place] [address] Consulting Neurosurgery 01/26/19 Wind Development Director Relationship Specialty Start Date End Date Malu Rowe MD [address] [place] [address] PCP - General Internal Medicine 05/02/23 Weston Crespo MD [address] [facility] [place] [address] Consulting Neurosurgery 01/26/19 Wind Development Director Relationship Specialty Start Date End Date Malu Rowe MD [address] [place], [place] 554101 PCP - General Internal Medicine 05/02/23 Weston Crespo MD [address] [place] [phone] Consulting Neurosurgery 01/26/19 Wind Development Director Relationship Specialty Start Date End Date Kesha Boone, SYSTEM CONFIGURATION SPECIALIST.OVEN BUILDER [address] [place] [address] PCP - General Internal Medicine 08/21/22 05/01/23 Weston Crespo MD [address] [facility] [place] [place] [address] Consulting Neurosurgery 01/26/19 Wind Development Director Relationship Specialty Start Date End Date Malu Rowe MD [address] [facility] [place] [address]451 PCP - General Internal Medicine 05/02/23 Weston Crespo MD [address] [facility] [place] [address] Consulting Neurosurgery 01/26/19 Wind Development Director Relationship Specialty Start Date End Date Malu Rowe MD [address] [facility] [place] 28[address] PCP - General Internal Medicine 05/02/23 Weston Crespo MD [address] [facility] [place] [address] Consulting Neurosurgery 01/26/19 Wind Development Director Relationship Specialty Start Date End Date Malu Rowe MD [address] [place], [place] 936611 PCP - General Internal Medicine 05/02/23 Weston Crespo MD [address] [facility] [place] [address] Consulting Neurosurgery 01/26/19 Wind Development Director Relationship Specialty Start Date End Date Mlau Rowe MD [address] [place], [place] 952501 PCP - General Internal Medicine 05/02/23 Weston Crespo MD [address] [facility] [place] [address] Consulting Neurosurgery 01/26/19 Wind Development Director Relationship Specialty Start Date End Date Kesha Boone APRN.OVEN BUILDER [address] [place] [address] PCP - General Internal Medicine 08/21/22 Weston Crespo MD [address] [facility] [place] [place] [address] Consulting Neurosurgery 01/26/19 Wind Development Director Relationship Specialty Start Date End Date Malu Rowe MD [address] [place] [address] PCP - General Internal Medicine 05/19/23 Wind Development Director Relationship Specialty Start Date End Date Malu Rowe MD [address] [place], [place] 713241 PCP - General Internal Medicine 05/02/23 Weston Crespo MD [address] [facility] [address] Consulting Neurosurgery 01/26/19 Kesha Boone, SYSTEM CONFIGURATION SPECIALIST.OVEN BUILDER [address] [place], [place] 600771 [facility] Internal Medicine 07/12/24 Irlanda Canela, SYSTEM CONFIGURATION SPECIALIST.PSYCHOLOGICAL STRESS EVALUATOR [address] [place], [place] 484891 [facility] Internal Medicine 07/12/24 Wind Development Director Relationship Specialty Start Date End Date Malu Rowe MD [address] [place], [place] 067601 PCP - General Internal Medicine 05/02/23 Weston Crespo MD [address] [place] [address] Consulting Neurosurgery 01/26/19 Kesha Boone, SYSTEM CONFIGURATION SPECIALIST.OVEN BUILDER [address] [place], [place] 367321 [facility] Internal Medicine 07/12/24 Irlanda Canela, SYSTEM CONFIGURATION SPECIALIST.PSYCHOLOGICAL STRESS EVALUATOR [address] [place], [place] 984781 [facility] Internal Medicine 07/12/24 Wind Development Director Relationship Specialty Start Date End Date Malu Rowe MD [address] [place], [place] [id number] PCP - General Internal Medicine 05/02/23 Weston Crespo MD [address] [facility] [place] [place] [address] Consulting Neurosurgery 01/26/19 Kesha Boone, SYSTEM CONFIGURATION SPECIALIST.OVEN BUILDER [address] [place], [place] 432041 Operations Manager Assistant Internal Medicine 07/12/24 Irlanda Canela, SYSTEM CONFIGURATION SPECIALIST.PSYCHOLOGICAL STRESS EVALUATOR [address] [place], [place] 086481 [facility] Internal Medicine 07/12/24 Wind Development Director Relationship Specialty Start Date End Date Malu Rowe MD [address] [place], [place] 353611 PCP - General Internal Medicine 05/02/23 Weston Crespo MD [address] [place] [address]30[address] Consulting Neurosurgery 01/26/19 Kesha Boone, SYSTEM CONFIGURATION SPECIALIST.OVEN BUILDER [address] [place], [place] 966251 [facility] Internal Medicine 07/12/24 Irlanda Canela, SYSTEM CONFIGURATION SPECIALIST.PSYCHOLOGICAL STRESS EVALUATOR [address] [place], [place] 097881 [facility] Internal Medicine 07/12/24 Wind Development Director Relationship Specialty Start Date End Date Malu Rowe MD [address] [place], [place] 32408691 PCP - General Internal Medicine 05/02/23 Weston Crespo MD [address] [facility] [place] [place] [address] Consulting Neurosurgery 01/26/19 Kesha Boone, SYSTEM CONFIGURATION SPECIALIST.OVEN BUILDER [address] [place] [address] Operations Manager Assistant Internal Medicine 07/12/24 Irlanda Canela, SYSTEM CONFIGURATION SPECIALIST.PSYCHOLOGICAL STRESS EVALUATOR [address] [place] [address] Operations Manager Assistant Internal Medicine 10/26/24 Wind Development Director Relationship Specialty Start Date End Date Malu Rowe MD [address] [facility] [place] [place] [address] PCP - General Internal Medicine 05/02/23 Weston Crespo MD [address] [facility] [place] [place] [address] Consulting Neurosurgery 01/26/19 Kesha Boone, SYSTEM CONFIGURATION SPECIALIST.OVEN BUILDER [address] [facility] [place] [place] [address] Operations Manager Assistant Internal Medicine 07/12/24 Irlanda Canela, SYSTEM CONFIGURATION SPECIALIST.PSYCHOLOGICAL STRESS EVALUATOR [address] [facility] [place] [place] [address] Operations Manager Assistant Internal Medicine 10/26/24 Wind Development Director Relationship Specialty Start Date End Date Malu Rowe MD [address] [facility] [place] 668171 PCP - General Internal Medicine 05/02/23 Weston Crespo MD [address] [place] [address] Consulting Neurosurgery 01/26/19 Kesha Boone, SYSTEM CONFIGURATION SPECIALIST.OVEN BUILDER [address] [place] [address] Operations Manager Assistant Internal Medicine 07/12/24 Irlanda Canela APRN.PSYCHOLOGICAL STRESS EVALUATOR [address] [place] [address] Operations Manager Assistant Internal Medicine 10/26/24 Wind Development Director Relationship Specialty Start Date End Date Malu Rowe MD [address] [place] [address] PCP - General Internal Medicine 05/02/23 Weston Crespo MD [address] [place] [phone] Consulting Neurosurgery 01/26/19 Kesha Boone, SYSTEM CONFIGURATION SPECIALIST.OVEN BUILDER [address] [place] [address] Operations Manager Assistant Internal Medicine 07/12/24 Irlanda Canela SYSTEM CONFIGURATION SPECIALIST.PSYCHOLOGICAL STRESS EVALUATOR [address] [place] [address] Operations Manager Assistant Internal Medicine 10/26/24 Wind Development Director Relationship Specialty Start Date End Date Malu Rowe MD [address] [place] [address] PCP - General Internal Medicine 05/02/23 Weston Crespo MD [address] [place] [phone] Consulting Neurosurgery 01/26/19 Kesha Boone, GOLDIE.OVEN BUILDER [address] [place] [address] Operations Manager Assistant Internal Medicine 07/12/24 Irlanda Canela APRN.PSYCHOLOGICAL STRESS EVALUATOR [address] [place] [address] Operations Manager Assistant Internal Medicine 10/26/24 Wind Development Director Relationship Specialty Start Date End Date Malu Rowe MD [address] [facility] [place] [place] [address] PCP - General Internal Medicine 05/02/23 Weston Crespo MD [address] [place] [phone] Consulting Neurosurgery 01/26/19 Kesha Boone APRN.OVEN BUILDER [address] [place] [address] Operations Manager Assistant Internal Medicine 07/12/24 Irlanda Canela APRN.PSYCHOLOGICAL STRESS EVALUATOR [address] [facility] [place] [place] [address] Operations Manager Assistant Internal Medicine 10/26/24 Wind Development Director Relationship Specialty Start Date End Date Malu Rowe MD [address] [facility] [place] [place] [address] PCP - General Internal Medicine 05/02/23 Weston Crespo MD [address] [place] [phone] Consulting Neurosurgery 01/26/19 Irlanda Canela APRN.PSYCHOLOGICAL STRESS EVALUATOR [address] [place] [address] Operations Manager Assistant Internal Medicine 10/26/24 Kesha Boone, GOLDIE.OVEN BUILDER [address] [place] [address] Operations Manager Assistant Internal Medicine 12/22/24 Wind Development Director Relationship Specialty Start Date End Date Malu Rowe MD [address] [place] [address] PCP - General Internal Medicine 05/02/23 Weston Crespo MD [address] [facility] [place] [place] [phone] Consulting Neurosurgery 01/26/19 Irlanda Canela SYSTEM CONFIGURATION SPECIALIST.PSYCHOLOGICAL STRESS EVALUATOR [address] [place] [address] Operations Manager Assistant Internal Medicine 10/26/24 Kesha Boone, GOLDIE.OVEN BUILDER [address] [place] [address] Operations Manager Assistant Internal Medicine 12/22/24 Wind Development Director Relationship Specialty Start Date End Date Malu Rowe MD [address] [place] [address] PCP - General Internal Medicine 05/19/23 Wind Development Director Relationship Specialty Start Date End Date Malu Rowe MD [address] [place] [address] PCP - General Internal Medicine 05/02/23 Weston Crespo MD [address] [facility] [place] [place] [address] Consulting Neurosurgery 01/26/19 Irlanda Canela APRN.PSYCHOLOGICAL STRESS EVALUATOR [address] [place], [place] 907911 Operations Manager Assistant Internal Medicine 10/26/24 Kesha Boone APRN.OVEN BUILDER [address] [place] [address] Operations Manager Assistant Internal Medicine 12/22/24 Wind Development Director Relationship Specialty Start Date End Date Malu Rowe MD [address] [place], [place] 873341 PCP - General Internal Medicine 05/02/23 Weston Crespo MD [address] [facility] [place] [phone] Consulting Neurosurgery 01/26/19 Irlanda Canela APRN.PSYCHOLOGICAL STRESS EVALUATOR [address] [place], [place] 061691 Operations Manager Assistant Internal Medicine 10/26/24 Kesha Boone APRN.OVEN BUILDER [address] [place] [address] Operations Manager Assistant Internal Medicine 12/22/24 Team Status: Inactive Member Role Status Dates Dr. Malu Rowe MD Primary Care Provider Active Start: December 30, 2024 End: December 30, 2024 Dr. Elias Rider II, MD Attending Provider Active S tart: December 30, 2024 End: December 30, 2024 Dr. Elias Rider II, MD Referring Provider Active S tart: December 30, 2024 End: December 30, 2024 Wind Development Director Relationship Specialty Start Date End Date Malu Rowe MD [address] [facility] [place] [id number] PCP - General Internal Medicine 05/02/23 Weston Crespo MD [address] [place] [id number] Consulting Neurosurgery 01/26/19 Irlanda Canela SYSTEM CONFIGURATION SPECIALIST.PSYCHOLOGICAL STRESS EVALUATOR [address] [facility], [place] [id number] Operations Manager Assistant Internal Medicine 10/26/24 Kesha Boone, GOLDIE.OVEN BUILDER [address] [facility] [place] [phone] Operations Manager Assistant Internal Medicine 12/22/24 Team Status: Active Member Role/Relationship Status Dates Dr. Malu oRwe MD Primary Care Provider Active Team Status: Inactive Member Role/Relationship Status Dates Dr. Malu Rowe MD Primary Care Provider Active Start: December 30, 2024 End: December 30, 2024 Dr. Elias Rider II, MD Attending Provider Active S tart: December 30, 2024 End: December 30, 2024 Dr. Elias Rider II, MD Referring Provider Active S tart: December 30, 2024 End: December 30, 2024 Team Status: Inactive Member Role/Relationship Status Dates Dr. Malu Rowe MD Primary Care Provider Active Start: March 07, 2025 End: March 07, 2025 Dr. Oscar Beckford DO Emergency Provider Activ e Start: March 07, 2025 End: March 07, 2025 Wind Development Director Relationship Specialty Start Date End Date Malu Rowe MD [address] [place] [address] PCP - General Internal Medicine 05/02/23 Weston Crespo MD [address] [facility] [place] [id number] Consulting Neurosurgery 01/26/19 Irlanda Canela SYSTEM CONFIGURATION SPECIALIST.PSYCHOLOGICAL STRESS EVALUATOR [address] [facility] [place], [place] [address] Operations Manager Assistant Internal Medicine 10/26/24 Kesha Boone, SYSTEM CONFIGURATION SPECIALIST.OVEN BUILDER [address] [facility] [place], [place] [id number] Operations Manager Assistant Internal Medicine 12/22/24 Team Status: Inactive Member Role/Relationship Status Dates Dr. Malu Rowe MD Primary Care Provider Active Start: March 07, 2025 End: March 07, 2025 Dr. Oscar Beckford DO Attending Provider Activ e Start: March 07, 2025 End: March 07, 2025 Dr. Oscar Beckford DO Emergency Provider Activ e Start: March 07, 2025 End: March 07, 2025 Team Status: Inactive Member Role/Relationship Status Dates Dr. Malu Rowe MD Primary Care Provider Active Start: March 29, 2025 End: March 29, 2025 Dr. Malu Rowe MD Referring Provider Active Start: March 29, 2025 End: March 29, 2025 Dr. Sidney Motta MD Attending Provider Active S tart: March 29, 2025 End: March 29, 2025 Team Status: Active Member Role/Relationship Status Dates Dr. Malu Rowe MD Primary care physician Active Team Status: Inactive Member Role/Relationship Status Dates Dr. Malu Rowe MD Primary care physician Active Start: March 07, 2025 End: March 07, 2025 Dr. Oscar Beckford DO Attending physician Active Start: March 07 End: March 07, 2025 Dr. Oscar Beckford DO Emergency Department Physician Active Start: March 07, 2025 End: March 07, 2025 Team Status: Inactive Member Role/Relationship Status Dates Dr. Malu Rowe MD Primary care physician Active Start: March 29, 2025 End: March 29, 2025 Dr. Malu Rowe MD Referring Provider Active Start: March 29, 2025 End: March 29, 2025 Dr. Sidney Motta MD Attending physician Active Start: March 29, 2025 End: March 29, 2025 Team Status: Inactive Member Role/Relationship Status Dates Dr. Malu Rowe MD Primary care physician Active Start: May 20, 2025 End: May 20, 2025 Dr. Malu Rowe MD Referring Provider Active Start: May 20, 2025 End: May 20, 2025 JOCELYNN Harmon Attending physician Active Start : May 20, 2025 End: May 20, 2025 Goals (unrecognized section and content) Goals may be documented in a n alternate sectionGoals may be documented in an alternate sectionGoals may be documented in an alternate sectionGoals may be documented in an alternate sectionGoals may be documented in an alternate sectionGoals may be documented in an alternate sectionGoals may be documented in an alternate sectionGoals may be documented in an alternate section Inactive Administered Medications - up to 3 most recent administrations Administered Medications (un recognized section and content) Medication Order MAR Action Action Date Dose Rate Site acetaminophen 1,000 mg tab(s) (TYLENOL) 1,000 mg, ORAL, ONCE, 1 dose, On Fri11/13/23 at 1100, No more than 4000 mg of acetaminophen should be given per day (FROM ALL SOURCES), If ordered PRN for pain, patient/guardian may elect to receive this medication for higher pain levels INSTEAD of the opioid, if preferred: N/A Given 11/13/2023 10:59 AM EDT 1,000 mg zoledronic acid 5 mg PREMIX piggyback (RECLAST) 5 mg, INTRAVENOUS, at 400 mL/hr, Administer over 15 Minutes, ONCE, 1 dose, On Fri11/13/23 at 1100, Hazardous Potential Reproductive Risk Drug: Use appropriate PPE. New Bag/Syringe/Bottle 11/13/2023 11:01 AM EDT 5 mg 400 mL/hr FOR RECORDS PERTAINING TO PATIENTS WHO ARE [...] BE BASED ON THE PRIMARY CLINICAL RECORDS. [facility] [employer] [facility]. provides no warranty or guarantee of the accuracy or completeness of information in this document.
--- NOTE | 2025-06-07 13:06 | STRESSREP ---
Stress Test Report Date: 06/07/2025 Procedure: Pharmacologic stress nuclear imaging study Indications: Atherosclerotic vascular disease/preop clearance Consent: Per the patient Procedure: The patient underwent pharmacologic (Regadenoson 0.4mg ) evaluation with a peak heart rate of 80 beats per minute (53%predicted maximal heart rate) and a peak blood pressure of 138/82 mmHg. The baseline ECG demonstrated sinus rhythm with incomplete right bundle branch block. The peak pharmacologic ECG did not show any diagnostic ischemic changes. There were no cardiac dysrhythmias pretest, during pharmacologic infusion, or recovery. There was no complaint of chest discomfort during pharmacologic infusion or recovery. The patient was injected with 11.4 millicuries of technetium 99m Cardiolite and subsequently rest SPECT Cardiolite nuclear imaging was obtained in the horizontal long, vertical long, and short axis views. The patient underwent pharmacologic (Regadenoson) evaluation. The patient was injected with 33.2 millicuries of technetium 99m Cardiolite and subsequently stress SPECT Cardiolite nuclear imaging was obtained in the horizontal long, vertical long, and short axis views. A gated Cardiolite study at peak stress was obtained. The examination was stopped secondary to completion of protocol. Rest and stress SPECT Cardiolite nuclear imaging status post realignment, normalization, and attenuation correction demonstrate no fixed or reversible perfusion defects. There is end systolic thickening and brightening. The gated Cardiolite study demonstrates myocardial thickening and inward wall motion. The reported LVEF is 76%. Impression: 1. Pharmacologic (Regadenoson) evaluation 2. Peak pharmacologic ECG with no diagnostic ischemic changes. 3. There were no cardiac dysrhythmias pretest, during pharmacologic infusion, or recovery. 5. Rest and stress SPECT Cardiolite nuclear imaging demonstrate relative uniform tracer uptake and myocardial perfusion appearing within normal limits. 6. The gated Cardiolite study reports an LVEF of 76%. This note was generated with [employer] software. It may contain incorrect words, spelling, and punctuation that were not noted in checking the note before signing.
== END | disposition home or self-care (01) ==
LOC: CVS 05:59
PROVIDERS: PCP Internal Medicine; Referring Provider Nurse Practitioner Family; Visit Provider Nurse Practitioner Family
DX: Z01.810 Encounter for preprocedural cardiovascular examination (principal); I10 Essential (primary) hypertension; E78.5 Hyperlipidemia, unspecified; I73.9 Peripheral vascular disease, unspecified; Z01.818 Encounter for other preprocedural examination
CPT/HCPCS: 78452; 93017; 93306; A9500; A4216; J2785

== ENCOUNTER → 2025-06-10 | Outpatient (CLI) | payer MEDICARE, SELFPAY ==
--- NOTE | 2025-06-10 10:00 | US_ITS ---
PROCEDURE: OTHER UNLISTED US PROCEDURE 06/10/2025 REASON FOR EXAM: LEFT UPPER BACK MASS TECHNIQUE: Procedure Code: USOTH SOFT Modality: US Procedure: OTHER UNLISTED US PROCEDURE. COMPARISON: None FINDINGS: Palpable lump in the posterior left upper back. This corresponds to a 5.3 cm 5.1 cm 1.3 cm hypoechoic ovoid mass. This is suggestive of a lipoma. US/Other Unlisted US Procedure IMPRESSION: The palpable abnormality most likely corresponds to a 5.3 cm 5.1 cm 1.3 cm lipo ma. Reading Location: [id number]
== END | disposition home or self-care (01) ==
LOC: US 09:59
PROVIDERS: PCP Internal Medicine; Referring Provider Physician Assistant; Visit Provider Physician Assistant
DX: R22.2 Localized swelling, mass and lump, trunk (principal)
CPT/HCPCS: 76999

== ENCOUNTER 2025-07-05 06:29 | Day surgery (SDC) | payer MEDICARE, SELFPAY ==
--- NOTE | 2025-06-23 17:29 | PAT.ANE_ITS ---
Pre-Assessment Diagnosis/Proposed Procedure Planned Operative Procedure(s): EXCISION OF LIPOMA ON BACK Anesthesia History Anesthesia History - shared services representative: Anesthesia History - shared services representative Hx Hospitalization No 06/23/25 16:46 Any Problems With Anesthesia No 06/23/25 16:46 Cholinesterase deficiency No 06/23/25 16:46 You/Your Family Experience No 06/23/25 16:46 fever (hyperthermia) with Relationship Recent Exposure to Contagious No 02/01/14 08:12 Disease Does patient have nerve No 06/23/25 16:46 stimulator Patient instructed to have device shut off --Does patient have Pacemaker or ICD? When Was Last Pacemaker Check QUESTION #4 FULL TEXT: You/Your Family Experience fever (hyperthermia) with Anesthesia Last Oral Intake Last Oral intake: Last Oral Intake NPO since Meds taken in AM with sips of water? Meds patient instructed to take am of surgery PONV PONV - shared services representative: PONV - shared services representative Female No 06/23/25 16:46 HX of Motion Sickness No 06/23/25 16:46 HX of N/V After Surgery No 06/23/25 16:46 Non-Smoker Yes 06/23/25 16:46 Duration of Surgery greater Yes 06/23/25 16:46 than 60 minutes Number of Risk Factors 2 06/23/25 16:46 PONV Score Moderate Risk 06/23/25 16:46 Height & Weight Height & Weight: Anesthesia: Height & Weight Height 5 ft 8 in 06/02/25 07:01 Respiratory Assessment Respiratory Assessment - shared services representative: Respiratory Tract Infection Hx - shared services representative Hx Respiratory Tract Infection No 06/23/25 16:46 STOP Sleep Apnea STOP Sleep Apnea - shared services representative: STOP Sleep Apnea - shared services representative Hx Hypertension Yes: CONTROLLED WITH MED 06/23/25 16:46 Hx Sleep Apnea Yes 06/23/25 16:46 CPAP Yes: NONCOMPLIANT 06/23/25 16:46 BIPAP No 06/23/25 16:46 Do you snore loudly (louder No 06/23/25 16:46 than talking or can be heard Do you often feel tired/ No 06/23/25 16:46 fatigued/ sleepy during daytime? Has anyone observed you stop No 06/23/25 16:46 breathing during sleep? STOP Results Positive 06/23/25 16:46 QUESTION #5 FULL TEXT : Do you snore loudly (louder than talking or can be heard through closed doors)? 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 Specify any problems Hx of Preganancy in last 3 N/A 06/23/25 16:46 Months Nurse Filling Out Transfusion DSCHRIBER 06/23/25 16:46 & Questions: Date: 06/23/25 06/23/25 16:46 Time: 16:50 06/23/25 16:46 Patient unable to answer at this time (ie. confused, unrespo /Reproduction History /Reproductive History - shared services representative: /Reproductive Hx- shared services representative Hx Now No 06/23/25 16:46 Gestational Age (in weeks): EDC: Hx Hx Para Hx Section SAB No 06/23/25 16:46 Does the father of the baby or his family experience fever w Father of the baby Malignant Hypertension history comment [facility] Medical History (Updated 06/23/25 @ 17:01 by Miranda Joy) Wears glasses Complete edentulism, class III Depression Alcohol use Bladder disease Former smoker COPD (chronic obstructive pulmonary disease) CPAP (continuous positive airway pressure) dependence History of echocardiogram History of stress test Cardiology follow-up encounter Lipoma of forehead Epidermal inclusion cyst Subcutaneous mass of back Hypertension Glaucoma 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 CVA (cerebral vascular accident) Peripheral vascular disease Carotid artery stenosis Vitamin D deficiency Enlarged prostate Home Medications Medication Instructions Recorded Last Taken Type albuterol sulfate 90 mcg/actuation 2 puff inhalation Q 4H PRN PRN 11/14/18 Unknown Rx aerosol inhaler Wheezing ##1 citalopram 40 mg tablet 40 mg PO DAILY depression 10/16/20 History mometasone-formoterol HFA 100 2 puff inhalation BID so b 02/11/20 Unknown History mcg-5 mcg/actuation aerosol inhaler finasteride 5 mg tablet (Proscar) 5 mg PO DAILY Unknown History tamsulosin 0.4 mg capsule (Flomax) 0.4 mg PO QHS 03/17 Unknown History amlodipine 5 mg tablet 5 mg PO DAILY daily #90 tabs 03/29/25 Unknown Rx cholecalciferol (vitamin D3) 125 125 mcg PO QDAY 03/29 Unknown History mcg (5,000 unit) capsule rosuvastatin 40 mg tablet (Crestor) 40 mg PO DAILY #90 tabs 03/29/25 Unknown Rx aspirin 81 mg tablet,delayed 81 mg PO QDAY #90 tabs Unknown Rx release (Adult Aspirin Regimen) Allergy/AdvReac Type Severity Reaction Status Date / Time No Known Allergies Allergy Verified 06/23/25 16:39 Family History Mother , MOTHER FROM HEART DISEASE CAD (coronary artery disease) CVA (cerebral vascular accident) Heart disease Brother Hypertension Father , FATHER FROM BLACK LUNG, WORKED IN THE [employer] No problems noted. Brother , AT No problems noted. Brother , FROM LUNG CANCER Lung cancer Surgical History (Updated 06/23/25 @ 17:01 by Miranda Joy) Hx of colonoscopy History of endarterectomy History of angioplasty of vein Hx of bilateral cataract extraction (~11/07/22) Carotid artery aneurysm History of left knee surgery History of tonsillectomy Right cornea abrasion History of epidermal inclusion cyst excision Social History (Updated 05/20/25 @ 10:40 by Allison Garcia) Smoking Status: Former smoker how long ago did patient quit smoking: quit 4 months ago alcohol intake: never substance use type: does not use additional social history: pt denies vaping, denies edibles,denies marijuana use, Pt uses aspirin daily pt denies ibuprofen use, denies blood clots Audit: Pertinent Findings Pertinent Findings EKG Perinent findings: 06/02/2025. Normal sinus rhythm 65 bpm. Consider early transition or posterior infarct. Stress test pertinent findings: 06/07/2025. No diagnostic ischemic changes. EF 76%. Echo (EF%) pertinent findings: 06/07/2025. EF 65%. Normal diastolic function. Consult pertinent findings: Cardiology 06/02/2025. Carotid artery stenosis. Being monitored by vascular surgeon at [facility]. Hypertension. Chronic. Well- controlled. Preoperative cardiac examination. Currently pending echocardiogram stress sepsis. Final clearance will be made once the tests are completed. Recommendation Anesthesia Recommendation Anesthesia recommendation: OPTIMIZED for anesthesia
[2025-07-05] VITALS (15 sets, daily range): BP systolic 119–166; BP diastolic 63–80; PULSE 62–68; RESP 14–20; TEMP 36.3–36.6; O2SAT 94–100; BMI 22.8
--- OUTSIDE RECORDS SUMMARY | 2025-07-05 06:33 | XMS RPT_ITS | CCD ---
Author Organization [facility] Care Team Providers Care Upsetting Machine Operator Name Role Phone Elias Rider II Unavailable Unavailable Update Needed Unavailable Unavailable Malu Rowe Primary Care Provider [facility] Cardiac Res piration, Other Primary Care Provider ARTHUR CARCAMO Attending Unavailable MALU ROWE Primary Care Unavailable Pending Provider Unavailable Unavailable Unavailable Unavailable Malu Rowe MD Primary Care Provider Weston Crespo MD Unavailable [phone] Dr. Malu Rowe Primary Care Provider Dr. Malu Rowe Referring Provider Good ALEMAN, CORNELIUSC Beth Attending Provider Malu Rowe Unavailable Malu Rowe MD Primary Care Provider Weston Crespo MD Unavailable Malu Rowe MD Primary Care Provider Weston Crespo MD Unavailable [phone] Paolo MILES, Kesha Primary Care Provider Malu Rowe Primary [...] MD ELIAS RIDER Referring Unavailabl e Talampas, Dr. Malu Chiang Primary Care Provider Sumaya, Dr. Malu Chiang Referring Provider Good GLASS UNLOADING EQUIPMENT TENDER, GLASS UNLOADING EQUIPMENT TENDERSydniC Beth Attending Provider Malu Rowe MD Primary Care Provider Malu Rowe MD Primary Care Provider Boone SUPERVISOR BLOOD DONOR RECRUITERS.ABALONE PROCESSOR, Kesha Primary Care Provider Unavailable Primary Care Provider Unavailabl e FRANK CANO Attending Unavailab KESHA Flores Referring Unavailable TALAMPESPERANZA MARTINEZA Андрей Primary Care Unavailable TALAMPMICHELLE MALU D Primary Care Unavailable TIP RAMIREZ Attending Unavailable Malu Rowe MD Primary Care Provider Boone SUPERVISOR BLOOD DONOR RECRUITERS.ABALONE PROCESSOR, Kesha Primary Care Provider Malu Rowe MD Primary Care Provider Boone SUPERVISOR BLOOD DONOR RECRUITERS.ABALONE PROCESSOR, Kesha Unavailable Rola SUPERVISOR BLOOD DONOR RECRUITERS.DEVICE REPAIR TECHNICIAN, Irlanda Unavailable Rola SUPERVISOR BLOOD DONOR RECRUITERS.DEVICE REPAIR TECHNICIAN, Irlanda Unavailable Boone SUPERVISOR BLOOD DONOR RECRUITERS.ABALONE PROCESSOR, Kesha Unavailable ELIAS RIDER Attending Unavailable MALU ROWE Primary Care Unavailable ELIAS RIDER Attending Unavailable MALU ROWE Primary Care Unavailable ELIAS RIDER Attending Unavailable TALAMPAS, MALU D Primary Care Unavailable Dr. Malu Rowe MD Primary Care Provider [phone] Darlin ESCALANTE, Dr. Pacheco Attending Provider Darlin ESCALANTE, Dr. Pacheco Referring Provider Analy MARTINS, Dr. Moore Emergency Provider [facility] MARTINS, Dr. Moore Attending Provider Sumaya ESCALANTE, Dr. Malu Chiang Referring Provider [phone] Dr. Sidney Motta MD Attending Provider TALAMPAS, MALU D Primary Care Unavailable TALAMPAS, MALU D Referring Unavailable TALAMPAS, MALU D Primary Care Unavailable TALAMPAS, MALU D Referring Unavailable TALAMPAS, MALU D Primary Care Unavailable BOONE, KESHA Attending Unavailable TALAMPAS, MALU D Primary Care Unavailable TALAMPAS, MALU D Primary Care Unavailable Carolin FANG Referring Unavailable HARRELL, MASSIEL K Referring Unavailable HARRELL, MASSIEL K Attending Unavailable TALAMPAS, MALU D Primary Care Unavailable ART DONOVAN Attending Unavailable TALAMPAS, MALU D Primary [...] Primary Care Unavailable BOONE, KESHA Referring Unavailable Bradenampas , Dr. Malu Chiang Primary Care Physician [facility] MARTINS, Dr. Moore [facility]ending [facility]ician [facility], Dr. [facility] Kalia ESCALANTE, Dr. Little Attending Physician [phone] Lily Samayoa Attending Physician [phone] Talampas, Malu D Primary Care Unavailable Lily Acosta Attending Unavailable Lily Acosta Referring Unavailable Oscar Beckford Attending Unavailabl e Talampas, Malu D Primary Care Unavailable Roof GLASS UNLOADING EQUIPMENT TENDER, Elias Eubanks Attending Unavailable Roof GLASS UNLOADING EQUIPMENT TENDER, Elias Eubanks Referring Unavailable Talampas, Malu D Primary Care Unavailable Talampas, Malu D Referring Unavailable Talampas, Malu D Primary Care Unavailable Lily Acosta Attending Unavailable Roof GLASS UNLOADING EQUIPMENT TENDER, Elias Eubanks Referring Unavailable Kimmie Peña Attending Unavailable Talampas, Malu D Primary Care Unavailable Roof GLASS UNLOADING EQUIPMENT TENDER, Elias Eubanks Consulting Unavailable Roof GLASS UNLOADING EQUIPMENT TENDER, Elias Eubanks Attending Unavailable Talampas, Malu D Referring Unavailable Talampas, Malu D Primary Care Unavailable Sidney Motta Attending Unavailable Talampas, Malu D Primary Care Unavailable Talampas, Malu D Referring Unavailable Talampas, Malu D Primary Care Unavailable Talampas, Malu D Referring Unavailable Lily Acosta Attending Unavailable Rider II, Elias Attending Unavailable Rider IIElias Referring Unavailable Talampas, Malu D Primary Care Unavailable Allergies Allergy Classification Reported Allergen(s) Allergy Type Date of Onset Reaction(s) Facility (20 sources) Seasonal allergy; Translations: [SEASONAL ALLERGIES] Allergy to substance 6 Other: See Comments [facility] Medications Current Medications Medication Drug Class(es) Dates Sig (Normalized) Sig (Original) [id number] 200 actuat albuterol 0.09 mg/actuat metered dose [...] 03/25/2023 Discontinued take 1 tablet by amanda once daily cholecalciferol (VITAMIN D-3) 5,000 unit tab Take 5,000 Units by mouth once daily. Active take 2 tablets by mo ut once daily cholecalciferol (Vitamin D-3) 25 MCG (1000 UT) tablet Take 2 tablets (2,000 Units) by mouth once daily. Active cholecalciferol, vitamin D3, 1,000 unit tablet Take 5 (five) tablets (5,000 Units total) by mouth daily TAKES 5,OOO INTERNATIONAL UNITS . 0 Active take 1 tablet by amanda once daily Vitamin D3 25 MCG (1000 UT) tablet Take 2,000 Units by mouth daily. 0 Active Comment on above: Take 1 capsule by mo [facility] once each week. citalopram 40 mg oral [...] 200-62.5-25 mcg inhalation powder (2 sources) Start: take 1 puff(s) by inhalation once daily fluticasone-umeclid in-vilanter (TRELEGY ELLIPTA) 200-62.5-25 mcg inhalation powder Inhale 1 puff as instructed once daily. 60 each 02/11/2025 Active 120 actuat formoterol fumarate 0.005 mg/actuat / mometasone furoate 0.1 mg/actuat metered dose inhaler (20 sources) Corticosteroid, beta2-Adrenergic Agonist Start: 0 Start: 02-11-2020 take 1 puff(s) by in [...] Nonsteroidal Anti-inflammatory Drug, Cyclooxygenase Inhibitor Start: 11-08-19 23 End: 12-13-19 23 take 1 drop(s) into the eye(s) [...] mg oral tablet (14 sources) Start: 01-27-20 take 1 tablet by mouth twice daily levETIRAcetam (Keppra) 1,000 mg tablet Take 1 tablet (1,000 mg) by mouth 2 times a day. 01/26/2019 Active moxifloxacin 5 mg/ml ophthalmic solution (2 sources) Quinolone Antimicrobial Start: 11-09-19 End: 04-10-20 23 take 1 drop(s) into the eye(s) [...] 1 Drop (A LCAINE) Start: 09-30-2022 End: 02-27-2023 proparacaine 0.5 % 1 Drop (A LCAINE) [...] Comment on above: TAKE 1 CAPSULE BY [facility] EVERY DAY AT BEDTIME tropicamide 10 [...] on above: Take 1 tablet by amanda one time a week. Take with a [...] (5 sources) Anticholinergic, Cholinergic Muscarinic Antagonist Start: take 1 drop(s) into the eye(s) four [...] noted on 08/16/2020; Other aftercare (1 source) remote computer terminal operator (current) use of antithrombotics/antip latelets; Translations: [care home (current) use of antithrombotics/antip latelets] Onset: 11-07-2022 Episodic Other aftercare (1 source) Patient encounter status; Translations: [care home (current) use of antithrombotics/antip latelets] 11-12-2022 Episodic [...] [Localized swelling, mass and lump, trunk] Onset: 06-10-2025 Episodic Peripheral and visceral atherosclerosis (20 sources) Peripheral vascular disease, unspecified; Translations: [Peripheral vascular disease, unspecified] Onset: 03-25-2020 03-26-2020 Chronic Comment on above: Bilateral common michael ac artery stenting with 8x38 iCAST, left external iliac artery stenting with [id number] Epic and 8x100 Viabahn , right external iliac artery stenting with [id number] Epic on 04/04/2020; Residual codes; unclassified (1 [...] 09-27-2024 02-26-2021 Chronic Other aftercare (1 source) remote computer terminal operator (current) use of anticoagulants; Translations: [remote computer terminal operator (current) use of anticoagulants] Onset: 09-26-2022 Episodic [...] Test Name Value Interpretation Reference Range Facility Other Unlisted US Procedureo n 06-10-2025 Other Unlisted US Procedure [facility] [address] [place] [address] Other Unlisted US Procedure MR#: [id number] Acct: [id number] Name: DENNY GOMEZ Rep #: [id number] : 1955 M 69 From: Tristan reyes MD PCP: Dr. Malu Rowe MD Status: [facility] Study: Other Unlisted US Procedure Date of Exam: 02/25 Exam# [id number] Ordering Dr: Lily Acosta PROCEDURE: OTHER UNLISTED US PROCEDURE 06/10/2025 REASON FOR EXAM: LEFT UPPER BACK MASS TECHNIQUE: Procedure Code: USOTH SOFT Modality: US Procedure: OTHER UNLISTED US PROCEDURE. COMPARISON: None FINDINGS: Palpable lump in the posterior left upper back. This corresponds to a 5.3 cm 5.1 cm 1.3 cm hypoechoic ovoid mass. This is suggestive of a lipoma. US/Other Unlisted US Procedure IMPRESSION: The palpable abnormality most likely corresponds to a 5.3 cm 5.1 cm 1.3 cm lipoma. Reading Location: [id number] CC: Dr. Malu Rowe MD; JOCELYNN Rivers Supervisor Furnace Room: Signed Normal [facility] Echo Completeon 06-07-2025 Echo Complete [facility] [address] [place] [address] Echo Complete 06/07/25 0841 MR#: [id number] Acct: [id number] Name: DENNY GOMEZ Rep #: [id number] : 1955 69 From: Kimmie Peña MD Attending Dr: CORNELIUS NolandC Status: REG CLI Ordering Dr: Elias Isaacs NP GLASS UNLOADING EQUIPMENT TENDER-C Date: 06/07/25 Location: CVS Sex: M AA Admitted: Reason For Study Reason For Study: PRE OP Procedure This was a 2D Doppler, Color Flow transthoracic echocardiogram. The study was technically difficult. Exam performed in department. Left Ventricle Normal size and thickness. The left ventricular ejection fraction is 65 %. Normal diastololic function. Right Ventricle Normal right ventricle. Atria The left and right atria are normal. Mitral Valve Trivial mitral valve insufficiency. Tricuspid Valve Trivial tricuspid valve insufficiency. Unable to estimate RV systolic pressure due to insufficient tricuspid regurgitant envelope. Aortic Valve Trisinus/trileaflet aortic valve. Trivial aortic valve insufficiency. Pulmonic Valve The pulmonic valve is not well visualized. Great Vessels Normal sized aortic root. Pericardium/Pleural No pericardial effusion. MMode/2D Measurements Calculations LVIDd: 4.4 cm IVSd: 1.0 cm LVOT diam: 2.1 cm LVIDs: 2.5 cm LVPWd: 1.0 cm LVOT area: 3.4 cm2 RVDd: 3.6 cm FS: 44.0 % Ao root diam: 2.8 cm LAV(MOD-bp): 36.8 ml LVAd ap4: 23.0 cm2 LAV(MOD-bp) Indexed: 20.2 ml/m2 LVLd ap4: 7.3 cm LAV(MOD-sp2): 49.4 ml EDV(MOD-sp4): 61.2 ml LAV(MOD-sp4): 27.8 ml EDV(sp4-el): 61.7 ml LVAs ap4: 10.9 cm2 LVLs ap4: 5.7 cm ESV(MOD-sp4): 17.3 ml ESV(sp4-el): 17.5 ml EF(MOD-sp4): 71.7 % EF(sp4-el): 71.6 % LVAd ap2: 19.5 cm2 SV(MOD-sp4): 43.9 ml SV(MOD-sp2): 27.0 ml LVLd ap2: 7.1 cm SI(MOD-sp4): 24.1 ml/m2 SI(MOD-sp2): 14.9 ml/m2 EDV(MOD-sp2): 44.0 ml EDV(sp2-el): 45.1 ml LVAs ap2: 10.8 cm2 LVLs ap2: 5.9 cm ESV(MOD-sp2): 16.9 ml ESV(sp2-el): 16.9 ml EF(MOD-sp2): 61.5 % SV(sp4-el): 44.2 ml Ao sinus diam: 2.[address] Junction: 2.3 cm LA dimension(2D): 3.3 cm LA A4 area: 12.2 cm2 RA A4 area: 12.9 cm2 TAPSE: 1.8 cm Time Measurements MV dec time: 0.23 sec Doppler Measurements Calculations MV E max dot: 85.8 cm/sec Lat Peak E' Dot: 13.4 cm/sec Med Peak E' Dot: 11.6 cm/sec MV A max dot: 57.5 cm/sec E/E' lat: 6.4 E/E' med: 7.4 MV E/A: 1.5 MV dec slope: 374.9 cm/sec2 Ao V2 max: 128.8 cm/sec LV V1 max: 109.4 cm/sec Ao max P.6 mmHg LV V1 max P.8 mmHg Ao V2 mean: 81.4 cm/sec LV V1 mean P.3 mmHg Ao mean P.0 mmHg LV V1 mean: 72.9 cm/sec Ao V2 VTI: 24.6 cm LV V1 VTI: 20.4 cm AV (velocity ratio): 0.83 CHANDLER(I,D): 2.8 cm2 CHANDLER(V,D): 2.9 cm2 SV(LVOT): 68.7 ml PA V2 max: 92.5 cm/sec TR max dot: 277.1 cm/sec TR max P.7 mmHg ECHO/Echo Complete Interpretation Summary The left ventricular ejection fraction is 65 %. Normal diastololic function. Ordering Physician: Elias Isaacs Referring Physician: Malu Rowe M.D. Performed By: Yara Harvey [facility] 06/07/25 1319 Date Kimmie Peña MD CC: GLASS UNLOADING EQUIPMENT TENDER-C Elias Isaacs; Dr. Malu Rowe MD Date Dictated: 06/07/25840 Date Transcribed: 06/07/251318 Supervisor Furnace Room: Signed Normal [facility] Stress Reporton 06-07-2025 Stress Report [facility] [address] [place], [place] [address] [address] MR#: [id number] Acct: [id number] Name: DENNY GOMEZ Rep #: [id number] : 1955 69 From: Kimmie Peña MD Primary Care: Dr. Malu Rowe MD Status: REG CLI Referring Dr: Elias Isaacs NP GLASS UNLOADING EQUIPMENT TENDER-C Sex: M AA Stress Test Report Date: 06/07/2025 Procedure: Pharmacologic stress nuclear imaging study Indications: Atherosclerotic vascular disease/preop clearance Consent: Per the patient Procedure: The patient underwent pharmacologic (Regadenoson 0.4mg ) evaluation with a peak heart rate of 80 beats per minute (53%predicted maximal heart rate) and a peak blood pressure of 138/82 mmHg. The baseline ECG demonstrated sinus rhythm with incomplete right bundle branch block. The peak pharmacologic ECG did not show any diagnostic ischemic changes. There were no cardiac dysrhythmias pretest, during pharmacologic infusion, or recovery. There was no complaint of chest discomfort during pharmacologic infusion or recovery. The patient was injected with 11.4 millicuries of technetium 99m Cardiolite and subsequently rest SPECT Cardiolite nuclear imaging was obtained in the horizontal long, vertical long, and short axis views. The patient underwent pharmacologic (Regadenoson) evaluation. The patient was injected with 33.2 millicuries of technetium 99m Cardiolite and subsequently stress SPECT Cardiolite nuclear imaging was obtained in the horizontal long, vertical long, and short axis views. A gated Cardiolite study at peak stress was obtained. The examination was stopped secondary to completion of protocol. Rest and stress SPECT Cardiolite nuclear imaging status post realignment, normalization, and attenuation correction demonstrate no fixed or reversible perfusion defects. There is end systolic thickening and brightening. The gated Cardiolite study demonstrates myocardial thickening and inward wall motion. The reported LVEF is 76%. Impression: 1. Pharmacologic (Regadenoson) evaluation 2. Peak pharmacologic ECG with no diagnostic ischemic changes. 3. There were no cardiac dysrhythmias pretest, during pharmacologic infusion, or recovery. 5. Rest and stress SPECT Cardiolite nuclear imaging demonstrate relative uniform tracer uptake and myocardial perfusion appearing within normal limits. 6. The gated Cardiolite study reports an LVEF of 76%. This note was generated with [employer]ero[employer] software. It may contain incorrect words, spelling, and punctuation that were not noted in checking the note before signing. 06/07/25 1307 Date Kimmie Peña MD CC: YONG Isaacs; Dr. Malu Rowe MD Date Dictated: 06/07/25 130 Date Transcribed: 06/07/251305 Supervisor Furnace Room: SUNG Signed Normal [facility] Cardiology Visit Reporton Cardiology Visit Report [facility] [address] [place], [place] [address] OFFICE VISIT Date of Service: 06/02/25 MR#: [id number] Acct: [id number] Name: DENNY GOMEZ Rep #: [id number] : 1955 Provider: YONG gómez Age/Sex: 69/M Location: [facility] Status: Signed HPI HPI History of Present Illness Details: Mr. Gomez is a very pleasant 69-year-old gentleman who presents to the office today for a cardiovascular follow-up visit. He has a history of hypertension, hyperlipidemia, carotid artery disease s/p R AND LEFT CEA, severe peripheral vascular disease. The patient underwent lower extremity peripheral vascular evaluation at the [facility] on 02/07/2020 which demonstrated severe peripheral vascular [...] Visit Reasons: Needs cardiac clearance, OR 06/10 Pick Pulling Machine Operator Required: No Is patient in pain?: No [...] FROM [place], WORKED IN [employer] No problems noted. Brother , AT No problems noted. Brother D (more content not included)... Normal [facility] CBC W Auto Differential pane l (Bld)on 05-27-2025 Basophils (Bld) [#/Vol] 0.06 10*3/uL Normal <0.11 [facility] Comment on above: Order Comment: Speci men Type: BLOOD SPECIMEN Ordering Facility: [facility] Address: [address] [place] [address] Performed By: #### 5 7021-8 #### [facility] CLIA [id number] [address] [place] [address] [place] Basophils/100 WBC (Bld) 0.8 % Normal C [facility] Comment on above: Order Comment: Krystlei roge Type: BLOOD SPECIMEN Ordering Facility: [facility] Address: [address] [place] [address] Performed By: #### 5 7021-8 #### [facility] CLIA [id number] [address] [place] [address] [place] Differential cell count method Nom (Bld) Auto Normal [facility] Comment on above: Order Comment: Speci men Type: BLOOD SPECIMEN Ordering Facility: [facility] Address: [address] [place] [address] Performed By: #### 5 7021-8 #### [facility] CLIA [id number] [address] [place] [address] [place] Eosinophils (Bld) [#/Vol] 0.05 10*3/uL Normal <0.46 [facility] Comment on above: Order Comment: Speci men Type: BLOOD SPECIMEN Ordering Facility: [facility] Address: [address] [place] [address] Performed By: #### 5 7021-8 #### [facility] CLIA [id number] [address] [place] [address] [place] Eosinophils/100 WBC (Bld) 0.6 % Normal [facility] Comment on above: Order Comment: Speci men Type: BLOOD SPECIMEN Ordering Facility: [facility] Address: [address] [place] [address] Performed By: #### 5 7021-8 #### [facility] CLIA [id number] [address] [place] [address] [place] Erythrocyte distribution width (RBC) [Ratio] 12.2 % Normal 11.5-15.0 [facility] Comment on above: Order Comment: Speci men Type: BLOOD SPECIMEN Ordering Facility: [facility] Address: [address] [place] [address] Performed By: #### 5 7021-8 #### [facility] CLIA [id number] [address] [place] [address] [place] Hematocrit (Bld) [Volume fraction] 41.4 % Normal 39.0-51.0 [facility] Comment on above: Order Comment: Speci men Type: BLOOD SPECIMEN Ordering Facility: [facility] Address: [address] [place] [address] Performed By: #### 5 7021-8 #### [facility] CLIA [id number] [address] [place] [address] [place] Hemoglobin (Bld) [Mass/Vol] 13.5 g/dL Normal 13.0-17.0 [facility] Comment on above: Order Comment: Speci men Type: BLOOD SPECIMEN Ordering Facility: [facility] Address: [address] [place] [address] Performed By: #### 5 7021-8 #### [facility] CLIA [id number] [address] [place] [address] [place] Immature granulocytes (Bld) [#/Vol] 0.03 10*3/uL Normal <0.10 [facility] Comment on above: Order Comment: Speci men Type: BLOOD SPECIMEN Ordering Facility: [facility] Address: [address] [place] [address] Performed By: #### 5 7021-8 #### [facility] CLIA [id number] [address] [place] [address] [place] Immature granulocytes/100 WBC (Bld) 0.4 % Normal [facility] Comment on above: Order Comment: Speci men Type: BLOOD SPECIMEN Ordering Facility: [facility] Address: [address] [place] [address] Performed By: #### 5 7021-8 #### [facility] CLIA [id number] [address] [place] [address] [place] Lymphocytes (Bld) [#/Vol] 1.86 10*3/uL Normal 1.00-4.00 [facility] Comment on above: Order Comment: Speci men Type: BLOOD SPECIMEN Ordering Facility: [facility] Address: [address] [place] [address] Performed By: #### 5 7021-8 #### [facility] CLIA [id number] [address] [place] [address] [place] Lymphocytes/100 WBC (Bld) 24.1 % Normal [facility] Comment on above: Order Comment: Speci men Type: BLOOD SPECIMEN Ordering Facility: [facility] Address: [address] [place] [address] Performed By: #### 5 7021-8 #### [facility] CLIA [id number] [address] [place] [address] [place] MCH (RBC) [Entitic mass] 32.5 pg Normal 26.0-34.0 [facility] Comment on above: Order Comment: Speci men Type: BLOOD SPECIMEN Ordering Facility: [facility] Address: [address] [place] [address] Performed By: #### 5 7021-8 #### [facility] CLIA [id number] [address] [place] [address] [place] MCHC (RBC) [Mass/Vol] 32.6 g/dL Normal 30.5-36.0 [facility] Comment on above: Order Comment: Speci men Type: BLOOD SPECIMEN Ordering Facility: [facility] Address: [address] [place] [address] Performed By: #### 5 7021-8 #### [facility] CLIA [id number] [address] [place] [address] [place] MCV (RBC) [Entitic vol] 99.5 fL Normal 80.0-100.0 [facility] Comment on above: Order Comment: Speci men Type: BLOOD SPECIMEN Ordering Facility: [facility] Address: [address] [place] [address] Performed By: #### 5 7021-8 #### [facility] CLIA [id number] [address] [place] [address] [place] Monocytes (Bld) [#/Vol] 0.57 10*3/uL Normal <0.87 [facility] Comment on above: Order Comment: Speci men Type: BLOOD SPECIMEN Ordering Facility: [facility] Address: [address] [place] [address] Performed By: #### 5 7021-8 #### [facility] CLIA [id number] [address] [place] [address] [place] Monocytes/100 WBC (Bld) 7.4 % Normal C [facility] Comment on above: Order Comment: Speci men Type: BLOOD SPECIMEN Ordering Facility: [facility] Address: [address] [place] [address] Performed By: #### 5 7021-8 #### [facility] CLIA [id number] [address] [place] [address] [place] Neutrophils (Bld) [#/Vol] 5.16 10*3/uL Normal 1.45-7.50 [facility] Comment on above: Order Comment: Speci men Type: BLOOD SPECIMEN Ordering Facility: [facility] Address: [address] [place] [address] Performed By: #### 5 7021-8 #### [facility] CLIA [id number] [address] [place] [address] [place] Neutrophils/100 WBC (Bld) 66.7 % Normal [facility] Comment on above: Order Comment: Speci men Type: BLOOD SPECIMEN Ordering Facility: [facility] Address: [address] [place] [address] Performed By: #### 5 7021-8 #### [facility] CLIA [id number] [address] [place] [address] [place] Nucleated RBC (Bld) [#/Vol] 10*3/uL Normal <0.01 [facility] Comment on above: Order Comment: Speci men Type: BLOOD SPECIMEN Ordering Facility: [facility] Address: [address] [place] [address] Performed By: #### 5 7021-8 #### [facility] CLIA [id number] [address] [place] [address] [place] Nucleated RBC/100 WBC (Bld) [Ratio] 0.0 /100 WBC Normal [facility] Comment on above: Order Comment: Speci men Type: BLOOD SPECIMEN Ordering Facility: [facility] Address: [address] [place] [address] Performed By: #### 5 7021-8 #### [facility] CLIA [id number] [address] [place] [address] [place] Platelet mean volume (Bld) [Entitic vol] 10.8 fL Normal 9.0-12.7 [facility] Comment on above: Order Comment: Speci men Type: BLOOD SPECIMEN Ordering Facility: [facility] Address: [address] [place] [address] Performed By: #### 5 7021-8 #### [facility] CLIA [id number] [address] [place] [address] [place] Platelets (Bld) [#/Vol] 226 10*3/uL Normal 150-400 [facility] Comment on above: Order Comment: Speci men Type: BLOOD SPECIMEN Ordering Facility: [facility] Address: [address] [place] [address] Performed By: #### 5 7021-8 #### [facility] CLIA [id number] [address] [place] [address] [place] RBC (Bld) [#/Vol] 4.16 10*6/uL Low 4.20-6.00 [facility] Comment on above: Order Comment: Speci men Type: BLOOD SPECIMEN Ordering Facility: [facility] Address: [address] [place] [address] Performed By: #### 5 7021-8 #### [facility] CLIA [id number] [address] [place] [address] [place] WBC (Bld) [#/Vol] 7.73 10*3/uL Normal 3.70-11.00 [facility] Comment on above: Order Comment: Speci men Type: BLOOD SPECIMEN Ordering Facility: [facility] Address: [address] [place] [address] Performed By: #### 5 7021-8 #### [facility] CLIA [id number] [address] [place] [address] [place] CNOVon 05-27-2025 CNOV Office Visit (INTMWS ) DENNY GOMEZ ([id number]) 1955 M Date Time Provider Department 05/27/25 12:20 PM KESHA BOONE INTMWS During your visit today, we recorded the following information about you: Pulse Respiration Blood pressure Weight 78/minute 14/minute 122/74 68.9 kg Kesha Boone, SUPERVISOR [employer].ABALONE PROCESSOR 05/30/2025 7:14 AM Addendum Subjective Patient ID: [...] Scheduled for lipoma and cyst removal at [facility] by Dr. Thorne. - Lipoma on back [...] - No known diabetes. - No known KS. - No known dyspnea. - No known tobacco use. Weight Loss: - Unintentional weight loss of 18 lbs. Stable weight currently. - Good appetite; consuming Ensure protein shakes. - Concerned about potential cancer. Hypertension: - Managed by Dr. Fermin. 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 CVA: - History of CVA with residual vision loss. Lung Disease: - History of moderate COPD/lung disease. Followed by Dr. Caroline Johnson pulmonology. Has CT chest scheduled. History of stroke with residual vision loss. No history of KS. Able to take two flight of stairs without shortness of breath or chest pain. Followed by [place] [facility] for hypertension and hyperlipidemia. Last [...] Lymph 1.00 - 4.00 k/uL 2.41 1.86 Whitley% % 6.9 7.4 Abs Whitley <0.87 k/uL 0.61 0.57 Eosin% % 0.7 0.6 Abs Eosin <0.46 k/uL 0.06 0.05 Baso% % 0.6 0.8 Abs Baso <0.11 k/uL 0.05 0.06 Immature Gran % % 0.5 0.4 IMMATURE GRANS (ABS) <0.10 k/uL 0.04 0.03 NRBC /100 WBC 0.0 (more content not included)... Normal [facility] Comprehensive metabolic 2000 panelon 05-27-2025 Albumin [Mass/Vol] 4.2 g/dL Normal 3.9-4.9 [facility] Comment on above: Order Comment: Speci men Type: BLOOD SPECIMENOrdering Facility: [facility] Address: [address] [place] [address] Performed By: #### 2 4323-8 ####[facility] [id number] [place] [address] [place] ALP [Catalytic activity/Vol] 82 U/L Normal 38-113 [facility] Comment on above: Order Comment: Speci men Type: BLOOD SPECIMENOrdering Facility: [facility] Address: [address] [place] [address] Performed By: #### 2 4323-8 ####[facility] [id number] [place] [address] [place] ALT [Catalytic activity/Vol] 35 U/L Normal 10-54 [facility] Comment on above: Order Comment: Speci men Type: BLOOD SPECIMENOrdering Facility: [facility] Address: [address] [place] [address] Performed By: #### 2 4323-8 ####[facility] [id number] [place] [address] [place] Anion gap [Moles/Vol] 12 mmol/L Normal 8-15 [facility] Comment on above: Order Comment: Speci men Type: BLOOD SPECIMENOrdering Facility: [facility] Address: [address] [place] [address] Performed By: #### 2 4323-8 ####[facility] [id number] [place] [address] [place] AST [Catalytic activity/Vol] 30 U/L Normal 14-40 [facility] Comment on above: Order Comment: Speci men Type: BLOOD SPECIMENOrdering Facility: [facility] Address: [address] [place] [address] Performed By: #### 2 4323-8 ####[facility] [id number] [place] [address] [place] Bilirubin [Mass/Vol] 0.4 mg/dL Normal 0.2-1.3 [facility] Comment on above: Order Comment: Speci men Type: BLOOD SPECIMENOrdering Facility: [facility] Address: [address] [place] [address] Performed By: #### 2 4323-8 ####[facility] [id number] [place] [address] [place] Calcium [Mass/Vol] 9.2 mg/dL Normal 8.5-10.2 [facility] Comment on above: Order Comment: Speci men Type: BLOOD SPECIMENOrdering Facility: [facility] Address: [address] [place] [address] Performed By: #### 2 4323-8 ####[facility] [id number] [place] [address] [place] Chloride [Moles/Vol] 106 mmol/L Normal 98-107 [facility] Comment on above: Order Comment: Speci men Type: BLOOD SPECIMENOrdering Facility: [facility] Address: [address] [place] [address] Performed By: #### 2 4323-8 ####[facility] [id number] [place] [address] [place] CO2 [Moles/Vol] 24 mmol/L Normal 22-30 [facility] Comment on above: Order Comment: Speci men Type: BLOOD SPECIMENOrdering Facility: [facility] Address: [address] [place] [address] Performed By: #### 2 4323-8 ####[facility] [id number] [place] [address] [place] Creatinine [Mass/Vol] 0.81 mg/dL Normal 0.73-1.22 [facility] Comment on above: Order Comment: Speci men Type: BLOOD SPECIMENOrdering Facility: [facility] Address: [address] [place] [address] Performed By: #### 2 4323-8 ####[facility] [id number] [place] [address] [place] eGFRcr SerPlBld CKD-EPI 2020 95 mL/min/1.73m??? Normal >=60 [facility] Comment on above: Order Comment: Speci men Type: BLOOD SPECIMENOrdering Facility: [facility] Address: [address] [place] [address] Result Comment: Sheridan mated Glomerular Filtration Rate [...] actual GFR. Performed By: #### 2 4323-8 ####[facility] [id number] [place] [address] [place] Glucose [Mass/Vol] 79 mg/dL Normal 74-99 [facility] Comment on above: Order Comment: Krystlei men Type: BLOOD SPECIMENOrdering Facility: [facility] Address: [address] [place] [address] Result Comment: The [place] Diabetes Association (ADA) provides guidance for cutoff [...] Standards of Medical Care in Diabetes 2016, [place] Diabetes Association. Diabetes Care. 2016.39(Suppl 1). Performed By: #### 2 4323-8 ####[facility] [id number] [place] [address] [place] Potassium [Moles/Vol] 3.9 mmol/L Normal 3.7-5.1 [facility] Comment on above: Order Comment: Krystlei men Type: BLOOD SPECIMENOrdering Facility: [facility] Address: [address] [place] [address] Performed By: #### 2 4323-8 ####[facility] [id number] [place] [address] [place] Protein [Mass/Vol] 6.5 g/dL Normal 6.3-8.0 [facility] Comment on above: Order Comment: Speci men Type: BLOOD SPECIMENOrdering Facility: [facility] Address: [address] [place] [address] Performed By: #### 2 4323-8 ####[facility] [id number] [place] [address] [place] Sodium [Moles/Vol] 142 mmol/L Normal 136-144 [facility] Comment on above: Order Comment: Speci men Type: BLOOD SPECIMENOrdering Facility: [facility] Address: [address] [place] [address] Performed By: #### 2 4323-8 ####[facility] [id number] [place] [id number] [place] Urea nitrogen [Mass/Vol] 14 mg/dL Normal 9-24 [facility] Comment on above: Order Comment: Speci men Type: BLOOD SPECIMENOrdering Facility: [facility] Address: [address] [place] [address] Performed By: #### 2 4323-8 ####[facility] [id number] [place] [address] [place] ECG COMPLETEon 05-27-2025 ECG COMPLETE Ventricular Rate : 6 9 BPM Atrial Rate : 69 BPM P-R Interval : 126 ms QRS Duration : 108 ms Q-T Interval : 384 ms QTC Calculation(Bazett) : 411 ms Calculated P [place] : 55 degrees Calculated R [place] : 16 degrees Calculated T [place] : 44 degrees NORMAL SINUS RHYTHM RSR' PATTERN IN V1 SUGGESTS INCOMPLETE RIGHT BUNDLE BRANCH BLOCK BORDERLINE ECG Confirmed by MD JENKINS QARAB ([id number]) on 05/30/2025 12:36:40 PM NAME : DENNY GOMEZ PID : [id number] : 1955 Gender : Male Race : ORD : [id number] Procedure Date : May 27 2025 12:14:13 Edit Date : May 30 2025 12:37:49 Diagnosis: NORMAL SINUS RHYTHM RSR' PATTERN IN V1 SUGGESTS INCOMPLETE RIGHT BUNDLE BRANCH BLOCK BORDERLINE ECG Confirmed by MD JENKINS QARAB ([id number]) on 05/30/2025 12:36:40 PM Test Reason : pre op Location : 185 : WO Overread By : MD JENKINS QARAB Edited By : MD JENKINS QARAB Referred By : , Acquired by : Trudi almonte [facility] Sheila 05-20-2025 CNPN Telephone (INTMWS) DENNY GOMEZ ([id number]) 1955 M Date Time Provider Department 05/20/25 MALU ROWE INTELIZABETH During your visit today, we recorded the [...] Exam [87] Prescriptions as of 05/20/2025 - hgcgjdbdlbj-ybftkrcje-o ilanter (TRELEGY ELLIPTA) 200-62.5-25 mcg inhalation powder [...] stenosis [I65.23] 03/24/2020 PAD (peripheral artery disease) ([facility]) [I73.9] 03/25/2020 S/P carotid endarterectomy [Z98.890] 03/25/2020 H/O ischemic left MCA stroke [Z86.73] 03/31/2020 Intracranial atherosclerosis [I67.2] 03/31/2020 Atherosclerosis of iqugmiut artery of extremity w*04/04/2020 Iliac artery injury, left, initial encounter [S*04/04/2020 09/27/2024 On mechanically assisted ventilation ([facility]) [Z99*04/04/2020 04/05/2020 Stress hyperglycemia [R73.9] 04/04/2020 04/06/2020 [...] Encounter Status:Closed by RITIKA MILLS on 05/20/25 [facility] Plastic Surgery Visit Report on 05-20-2025 Plastic Surgery Visit Report [facility] Plastic Reconstructive Surgery [address], [address] [place] [address] OFFICE VISIT Date of Service: 05/20/25 MR#: [id number] Acct: [id number] Name: DENNY GOMEZ Rep #: [id number] : 1955 Provider: JOCELYNN Rivers Age/Sex: 69/M Location: [facility] Status: Signed Pt seen evaluated w/[facility]. I [...] FATHER FROM [place], WORKED IN THE [employer] No problems noted. Brother , AT No [...] He is a former patient of Dr. Woodall'chika and had several lesions drained many years [...] sore throat Ca (more content not included)... [facility] 05-17-2025 [facility] Telephone ([employer]) DENNY GOMEZ ([id number]) 1955 M Date Time Provider Department 05/17/25 INES CANO During your visit today, we recorded the following information about you: Ines Cano, PAUL 05/17/2025 2:56 PM Signed Sw spoke with patient in regards to trelegy inhaler cost assistance. Discussed out of pocket spend out at pharmacy. Patient notes that he does not think that he is anywhere near that out of pocket spend out. Patient notes will check with [facility] and see about how much patient has spend out at pharmacy. Sw will mail out [employer] application to patient home to review and see if interested in applying for assistance with trelegy inhaler. Allergies As of Date: 05/17/2025 Noted Allergy Reaction SEASONAL ALLERGIES 2016 14 - Other: See Comments Comments: Sinus, runny nose Date Reviewed: 05/16/2025 Reviewed by: Caroline Johnson MD - Fully Assessed Prescriptions as of 05/20/2025 - ilfyrkxgsvj-luvrffwoy-o ilanter (TRELEGY ELLIPTA) 200-62.5-25 mcg inhalation powder [...] stenosis [I65.23] 03/24/2020 PAD (peripheral artery disease) ([facility]) [I73.9] 03/25/2020 S/P carotid endarterectomy [Z98.890] 03/25/2020 H/O ischemic left MCA stroke [Z86.73] 03/31/2020 Intracranial atherosclerosis [I67.2] 03/31/2020 Atherosclerosis of iqugmiut artery of extremity w*04/04/2020 Iliac artery injury, [...] Encounter Status:Closed by INES CANO on 05/20/25 [facility] CNOVon 05-16-2025 CNOV Office Visit (PULMWS ) DENNY GOMEZ ([id number]) 1955 M Date Time Provider Department 05/16/25 3:15 PM CAROLINE JOHNSON PULMWS During your visit today, we recorded the following information about you: Pulse Respiration Blood pressure Weight 69/minute 16/minute 132/68 68 kg Caroline Johnson MD 05/16/2025 4:05 PM Signed . Respiratory [place] Note Patient name: Denny Gomez PCP: Malu Rowe MD Referring Physician: Moises Pendleton MD CC: COPD, lung nodules HPI: Denny Gomez 69 year old male current smoker with PMH significant for HTN, Paget's disease, h/o stroke (occipital ICH, and MCA stroke), PAD s/p CEA, COPD, BPH, recently seen by Dr. Pendleton in [place]. Transferring care since lives in [place]. Recommendation at his initial visit was updated [...] DATE OF EXAM: Nov 01 2024 3:46PM [facility] 0541 - CT CHEST WO [...] intubated and sedated Plan: [place] Recurrent depressive disorder, in remission 02/26/2021 Stable on citalopram Stroke (cerebrum) (HCC) Subdural hematoma (HCC) 2019 ALLERGIES Allergen Reactions Seasonal Allergies Other: See Comments Sinus, runny nose ctvkmljyjfn-eynshbcaz-o ilanter (TRELEGY ELLIPTA) 200-62.5-25 mcg inhalation powder [...] March 13, 2025. SOCIAL HISTORY[1] Worked at [employer] for 5 years Pets: None FAMILY HISTORY Problem Relation Age of Onset Heart Mother Glaucoma Brother Heart Brother Ca (more content not included)... 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 Normal [facility] LUNG VOLUMESon 05-16-2025 LUNG VOLUMES [facility] [address] 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 Expert: : 1955 Requested By: Order Number: [id number] Reading MD: Caroline Johnson MD Interpretive Statements [...] 16:18:46 EDT by Caroline Johnson MD ID: [id number] Name: DENNY GOMEZ Race: Black or Ht: [...] 90-100 0.29 41 FIVC 3.56 3.77 5 GSX77-96 0.65 0.74 2.08 4.10 31 -1.80 1.18 [...] 77 % FEV1/FVC_LLN (%) : 63 % WNR68_SWC (L/S) : 2.04 L/S GNH24_PHJT (L/S) : 2.65 L/S WQW95_SOA (L/S) : 0.25 L/S PDB29_EDUA (L/S) : 0.54 L/S UMY98_HQOR (L/S) : 0.48 L/S NFE56_QXA (L/S) : 0.15 L/S XMT09_TKQ (L/S) : 1.41 L/S PXJ49-43%_PRE (L/S) : 0.65 L/S TCB95-36%_POST (L/S) : 1.18 L/S VLG13-99%_PRED (L/S) : 2.08 L/S IBD42-66%_LLN (L/S) : 0.74 L/S PEF_PRE (L/S) : [...] 0.03 ml/min/mmHg/L (more content not included)... Normal [facility] 25(OH)D3 [facility] 2024 25-hydroxyvitamin D3 [Mass/Vol] 37.5 ng/mL Normal 31.0-80.0 [facility] Comment on above: Order Comment: Speci men Type: BLOOD SPECIMEN Ordering Facility: [facility] Address: [address] [place] [address] Result Comment: Clas sification of 25 [place] Vitamin D status: Deficiency/Insufficiency: < or = 30 ng/ml. Sufficiency/Optimal Levels: 31-80 ng/mL Toxicity: > 100 ng/mL. Test performed by chemiluminescent immunoassay. Performed By: #### 5 7021-8 #### [facility] CLIA [id number] [address] [place] [address] [place] CBC W Auto Differential pane l (Bld)on 04-29-2025 Basophils (Bld) [#/Vol] 0.05 10*3/uL Normal <0.11 [facility] Comment on above: Order Comment: Speci men Type: BLOOD SPECIMEN Ordering Facility: [facility] Address: [address] [place] [address] Performed By: #### 5 7021-8 #### [facility] CLIA [id number] [address] [place] [address] [place] Basophils/100 WBC (Bld) 0.6 % Normal [facility] Comment on above: Order Comment: Speci men Type: BLOOD SPECIMEN Ordering Facility: [facility] Address: [address] [place] [address] Performed By: #### 5 7021-8 #### [facility] CLIA [id number] [address] [place] [address] [place] Differential cell count method Nom (Bld) Auto Normal [facility] Comment on above: Order Comment: Speci men Type: BLOOD SPECIMEN Ordering Facility: [facility] Address: [address] [place] [address] Performed By: #### 5 7021-8 #### [facility] CLIA [id number] [address] [place] [address] [place] Eosinophils (Bld) [#/Vol] 0.06 10*3/uL Normal <0.46 [facility] Comment on above: Order Comment: Speci men Type: BLOOD SPECIMEN Ordering Facility: [facility] Address: [address] [place] [address] Performed By: #### 5 7021-8 #### [facility] CLIA [id number] [address] [place] [address] [place] Eosinophils/100 WBC (Bld) 0.7 % Normal [facility] Comment on above: Order Comment: Speci men Type: BLOOD SPECIMEN Ordering Facility: [facility] Address: [address] [place] [address] Performed By: #### 5 7021-8 #### [facility] CLIA [id number] [address] [place] [address] [place] Erythrocyte distribution width (RBC) [Ratio] 12.2 % Normal 11.5-15.0 [facility] Comment on above: Order Comment: Speci men Type: BLOOD SPECIMEN Ordering Facility: [facility] Address: [address] [place] [address] Performed By: #### 5 7021-8 #### [facility] CLIA [id number] [address] [place] [address] [place] Hematocrit (Bld) [Volume fraction] 44.3 % Normal 39.0-51.0 [facility] Comment on above: Order Comment: Speci men Type: BLOOD SPECIMEN Ordering Facility: [facility] Address: [address] [place] [address] Performed By: #### 5 7021-8 #### [facility] CLIA [id number] [address] [place] [address] [place] Hemoglobin (Bld) [Mass/Vol] 14.8 g/dL Normal 13.0-17.0 [facility] Comment on above: Order Comment: Speci men Type: BLOOD SPECIMEN Ordering Facility: [facility] Address: [address] [place] [address] Performed By: #### 5 7021-8 #### [facility] CLIA [id number] [address] [place] [address] [place] Immature granulocytes (Bld) [#/Vol] 0.04 10*3/uL Normal <0.10 [facility] Comment on above: Order Comment: Speci men Type: BLOOD SPECIMEN Ordering Facility: [facility] Address: [address] [place] [address] Performed By: #### 5 7021-8 #### [facility] CLIA [id number] [address] [place] [address] [place] Immature granulocytes/100 WBC (Bld) 0.5 % Normal [facility] Comment on above: Order Comment: Speci men Type: BLOOD SPECIMEN Ordering Facility: [facility] Address: [address] [place] [address] Performed By: #### 5 7021-8 #### [facility] CLIA [id number] [address] [place] [address] [place] Lymphocytes (Bld) [#/Vol] 2.41 10*3/uL Normal 1.00-4.00 [facility] Comment on above: Order Comment: Speci men Type: BLOOD SPECIMEN Ordering Facility: [facility] Address: [address] [place] [address] Performed By: #### 5 7021-8 #### [facility] CLIA [id number] [address] [place] [address] [place] Lymphocytes/100 WBC (Bld) 27.3 % Normal [facility] Comment on above: Order Comment: Speci men Type: BLOOD SPECIMEN Ordering Facility: [facility] Address: [address] [place] [address] Performed By: #### 5 7021-8 #### [facility] CLIA [id number] [address] [place] [address] [place] MCH (RBC) [Entitic mass] 33.1 pg Normal 26.0-34.0 [facility] Comment on above: Order Comment: Speci men Type: BLOOD SPECIMEN Ordering Facility: [facility] Address: [address] [place] [address] Performed By: #### 5 7021-8 #### [facility] CLIA [id number] [address] [place] [address] [place] MCHC (RBC) [Mass/Vol] 33.4 g/dL Normal 30.5-36.0 [facility] Comment on above: Order Comment: Speci men Type: BLOOD SPECIMEN Ordering Facility: [facility] Address: [address] [place] [address] Performed By: #### 5 7021-8 #### [facility] CLIA [id number] [address] [place] [address] [place] OF [place] MCV (RBC) [Entitic vol] 99.1 fL Normal 80.0-100.0 C [facility] Comment on above: Order Comment: Speci men Type: BLOOD SPECIMEN Ordering Facility: [facility] Address: [address] [place] [address] Performed By: #### 5 7021-8 #### [facility] CLIA [id number] [address] [place] [address] [place] Monocytes (Bld) [#/Vol] 0.61 10*3/uL Normal <0.87 [facility] Comment on above: Order Comment: Speci men Type: BLOOD SPECIMEN Ordering Facility: [facility] Address: [address] [place] [address] Performed By: #### 5 7021-8 #### [facility] CLIA [id number] [address] [place] [address] [place] Monocytes/100 WBC (Bld) 6.9 % Normal C [facility] Comment on above: Order Comment: Speci men Type: BLOOD SPECIMEN Ordering Facility: [facility] Address: [address] [place] [address] Performed By: #### 5 7021-8 #### [facility] CLIA [id number] [address] [place] [address] [place] Neutrophils (Bld) [#/Vol] 5.66 10*3/uL Normal 1.45-7.50 [facility] Comment on above: Order Comment: Speci men Type: BLOOD SPECIMEN Ordering Facility: [facility] Address: [address] [place] [address] Performed By: #### 5 7021-8 #### [facility] CLIA [id number] [address] [place] [address] [place] Neutrophils/100 WBC (Bld) 64.0 % Normal [facility] Comment on above: Order Comment: Speci men Type: BLOOD SPECIMEN Ordering Facility: [facility] Address: [address] [place] [address] Performed By: #### 5 7021-8 #### [facility] CLIA [id number] [address] [place] [address] [place] Nucleated RBC (Bld) [#/Vol] 10*3/uL Normal <0.01 [facility] Comment on above: Order Comment: Speci men Type: BLOOD SPECIMEN Ordering Facility: [facility] Address: [address] [place] [address] Performed By: #### 5 7021-8 #### [facility] CLIA [id number] [address] [place] [address] [place] Nucleated RBC/100 WBC (Bld) [Ratio] 0.0 /100 WBC Normal [facility] Comment on above: Order Comment: Speci men Type: BLOOD SPECIMEN Ordering Facility: [facility] Address: [address] [place] [address] Performed By: #### 5 7021-8 #### [facility] CLIA [id number] [address] [place] [address] [place] Platelet mean volume (Bld) [Entitic vol] 11.2 fL Normal 9.0-12.7 [facility] Comment on above: Order Comment: Speci men Type: BLOOD SPECIMEN Ordering Facility: [facility] Address: [address] [place] [address] Performed By: #### 5 7021-8 #### [facility] CLIA [id number] [address] [place] [address] [place] Platelets (Bld) [#/Vol] 242 10*3/uL Normal 150-400 [facility] Comment on above: Order Comment: Speci men Type: BLOOD SPECIMEN Ordering Facility: [facility] Address: [address] [place] [address] Performed By: #### 5 7021-8 #### [facility] CLIA [id number] [address] [place] [address] [place] RBC (Bld) [#/Vol] 4.47 10*6/uL Normal 4.20-6.00 [facility] Comment on above: Order Comment: Speci men Type: BLOOD SPECIMEN Ordering Facility: [facility] Address: [address] [place] [address] Performed By: #### 5 7021-8 #### [facility] CLIA [id number] [address] [place] [address] [place] WBC (Bld) [#/Vol] 8.83 10*3/uL Normal 3.70-11.00 [facility] Comment on above: Order Comment: Speci men Type: BLOOD SPECIMEN Ordering Facility: [facility] Address: [address] [place] [address] Performed By: #### 5 7021-8 #### [facility] CLIA [id number] [address] [place] [address] [place] CNOVon 04-29-2025 CNOV Office Visit (INTMWS ) DENNY GOMEZ ([id number]) 1955 M Date Time Provider Department 04/29/25 1:40 PM KESHA BOONE INTMWS During your visit today, we recorded the following information about you: Pulse Respiration Blood pressure Weight 89/minute 20/minute 112/74 68.2 kg Height 1.746 m Kesha Boone, GOLDIE.ABALONE PROCESSOR 04/29/2025 2:10 PM Addendum - Complete the [...] review all the medicines you take, even nlph-oql-qtnwgyw medicines. As you get older, the way [...] you have certain medical conditions. Kesha Boone, GOLDIE.ABALONE PROCESSOR 04/29/2025 2:19 PM Signed Denny Gomez is [...] rising f (more content not included)... Normal [facility] Comprehensive metabolic 2000 panelon 04-29-2025 Albumin [Mass/Vol] 4.4 g/dL Normal 3.9-4.9 [facility] Comment on above: Order Comment: Speci men Type: BLOOD SPECIMENOrdering Facility: [facility] Address: [address] [place] [address] Performed By: #### L IPNF, , ####[facility] [id number] [place] [address] [place] ALP [Catalytic activity/Vol] 85 U/L Normal 38-113 [facility] Comment on above: Order Comment: Speci men Type: BLOOD SPECIMENOrdering Facility: [facility] Address: [address] [place] [address] Performed By: #### L IPNF, , ####[facility] [id number] [place] [address] [place] ALT [Catalytic activity/Vol] 25 U/L Normal 10-54 [facility] Comment on above: Order Comment: Speci men Type: BLOOD SPECIMENOrdering Facility: [facility] Address: [address] [place] [address] Performed By: #### L IPNF, , ####[facility] [id number] [place] [address] [place] Anion gap [Moles/Vol] 10 mmol/L Normal 8-15 [facility] Comment on above: Order Comment: Speci men Type: BLOOD SPECIMENOrdering Facility: [facility] Address: [address] [place], [place] [address] Performed By: #### L IPNF, , ####[facility] [id number] [address] [address] [place] AST [Catalytic activity/Vol] 21 U/L Normal 14-40 [facility] Comment on above: Order Comment: Speci men Type: BLOOD SPECIMENOrdering Facility: [facility] Address: [address] [place], [place] [address] Performed By: #### L IPNF, , ####[facility] [id number] [place] [address] [place] Bilirubin [Mass/Vol] 0.3 mg/dL Normal 0.2-1.3 [facility] Comment on above: Order Comment: Speci men Type: BLOOD SPECIMENOrdering Facility: [facility] Address: [address] [place], [place] [address] Performed By: #### L IPNF, , ####[facility] [id number] [place] [address] [place] Calcium [Mass/Vol] 9.6 mg/dL Normal 8.5-10.2 [facility] Comment on above: Order Comment: Speci men Type: BLOOD SPECIMENOrdering Facility: [facility] Address: [address] [place], [place] [address] Performed By: #### L IPNF, , ####[facility] [id number] [place] [id number] [place] Chloride [Moles/Vol] 104 mmol/L Normal 98-107 [facility] Comment on above: Order Comment: Speci men Type: BLOOD SPECIMENOrdering Facility: [facility] Address: [address] [place], [place] [address] Performed By: #### L IPNF, , ####[facility] [id number] [address] [address] [place] CO2 [Moles/Vol] 24 mmol/L Normal 22-30 [facility] Comment on above: Order Comment: Speci men Type: BLOOD SPECIMENOrdering Facility: [facility] Address: [address] [place] [address] Performed By: #### L IPNF, , ####[facility] [id number] [place] [address] [place] Creatinine [Mass/Vol] 0.97 mg/dL Normal 0.73-1.22 [facility] Comment on above: Order Comment: Speci men Type: BLOOD SPECIMENOrdering Facility: [facility] Address: [address] [place] [address] Performed By: #### L IPNF, , ####[facility] [id number] [place] [address] [place] eGFRcr SerPlBld CKD-EPI 2020 84 mL/min/1.73m??? Normal >=60 [facility] Comment on above: Order Comment: Speci men Type: BLOOD SPECIMENOrdering Facility: [facility] Address: [address] [place] [address] Result Comment: Sheridan mated Glomerular Filtration Rate [...] GFR. Performed By: #### L IPNF, , ####[facility] [id number] [address] [address] [place] Glucose [Mass/Vol] 86 mg/dL Normal 74-99 [facility] Comment on above: Order Comment: Speci men Type: BLOOD SPECIMENOrdering Facility: [facility] Address: [address] [place] [address] Result Comment: The [place] Diabetes Association (ADA) provides guidance for cutoff [...] Standards of Medical Care in Diabetes 2016, [place] Diabetes Association. Diabetes Care. 2016.39(Suppl 1). Performed By: #### L IPNF, , ####[facility] [id number] [place] [address] [place] Potassium [Moles/Vol] 5.1 mmol/L Normal 3.7-5.1 [facility] Comment on above: Order Comment: Speci men Type: BLOOD SPECIMENOrdering Facility: [facility] Address: [address] [place] [address] Performed By: #### L IPNF, , ####[facility] [id number] [place] [address] [place] Protein [Mass/Vol] 7.0 g/dL Normal 6.3-8.0 [facility] Comment on above: Order Comment: Speci men Type: BLOOD SPECIMENOrdering Facility: [facility] Address: [address] [place] [address] Performed By: #### L IPNF, , ####[facility] [id number] [place] [address] [place] Sodium [Moles/Vol] 138 mmol/L Normal 136-144 [facility] Comment on above: Order Comment: Sagar guan Type: BLOOD SPECIMENOrdering Facility: [facility] Address: [address] [place] [address] Performed By: #### L IPNF, 95802-6, 22046-4 ####[facility] [id number] [place] [address] [place] Urea nitrogen [Mass/Vol] 14 mg/dL Normal 9-24 [facility] Comment on above: Order Comment: Sagar guan Type: BLOOD SPECIMENOrdering Facility: [facility] Address: [address] [place] [address] Performed By: #### L IPNF, , ####[facility] [id number] [place] [address] [place] HbA1c (Bld)on 04-29-2025 Average glucose Estimated from glycated hemoglobin (Bld) [Mass/Vol] 94 mg/dL Normal [facility] Comment on above: Order Comment: Sagar guan Type: BLOOD SPECIMEN Ordering Facility: [facility] Address: [address] [place] [address] Result Comment: eAG: (Estimated average glucose) is a calculated value from HgbA1c and is congressional representative of the average blood glucose level in the last 2-3 month period. Performed By: #### 5 7021-8 #### [facility] CLIA [id number] [address] [place] [address] [place] HbA1c (Bld) [Mass fraction] 4.9 % Normal 4.3-5.6 [facility] Comment on above: Order Comment: Sagar guan Type: BLOOD SPECIMEN Ordering Facility: [facility] Address: [address] [place] [address] Result Comment: [place] Diabetes Association guidelines indicate that patients with HgbA1c in the range 5.7-6.4% are at increased risk for development of diabetes, and intervention by lifestyle modification may be beneficial. HgbA1c greater or equal to 6.5% is considered diagnostic of diabetes. Performed By: #### 5 7021-8 #### [facility] CLIA [id number] [facility] [address] OF [facility] LIPID PANEL, NONFASTINGon Cholesterol [Mass/Vol] 170 mg/dL Normal <200 [facility] Comment on above: Order Comment: Sagar guan Type: BLOOD SPECIMENOrdering Facility: [facility] Address: [address] [place] [address] Result Comment: <200 mg/dL, Desirable 200-239 mg/dL, Borderline high >239 mg/dL, High Performed By: #### L IPNF, , ####[facility] [id number] [address] [place] HDL CHOLESTEROL, NF 94 mg/dL Normal >39 [facility] Comment on above: Order Comment: Sagar guan Type: BLOOD SPECIMENOrdering Facility: [facility] Address: [address] [place] [address] Result Comment: 40-5 9 mg/dL, Acceptable >59 mg/dL, High: Negative risk factor for coronary heart disease <40 mg/dL, Low: Positive risk factor for coronary heart disease Performed By: #### L IPNF, , ####[facility] [id number] [address] [place] LDL CHOLESTEROL CALCULATED, NF 66 mg/dL Normal <100 [facility] Comment on above: Order Comment: Sagar guan Type: BLOOD SPECIMENOrdering Facility: [facility] Address: [address] [place] [address] Result Comment: <100 mg/dL, Optimal 100-129 mg/dL, Near optimal/above optimal 130-159 mg/dL, Borderline high 160-189 mg/dL, High >189 mg/dL, Very high Secondary prevention optimal LDL Cholesterol levels are recommended to be <70 mg/dL LDL cholesterol is calculated using the Cedeño-NIH equation. Performed By: #### L IPNF, , ####[facility] [id number] [address] OF [facility] LDL/HDL RATIO, NF 0.70 mg/dL Normal <2.54 [facility] Comment on above: Order Comment: Speci men Type: BLOOD SPECIMENOrdering Facility: [facility] Address: [address] [place] [address] Result Comment: Refe rence: 1. National Cholesterol Education Program ATP III Guideline At-A-Glance Quick Desk Reference: National Heart, Lung, and Blood [place]. National Institutes of Health. 2001: NIH Publication No. 01-3305. 2. An International Atherosclerosis Society position paper: global recommendations for the management of dyslipidemia: executive summary, Atherosclerosis. 2014: 232(2):410-413. Performed By: #### L YAMILKA, , ####[facility] [id number] [address] [place] NON HDL CHOL, NF 76 mg/dL Normal <130 [facility] Comment on above: Order Comment: Krystlei men Type: BLOOD SPECIMENOrdering Facility: [facility] Address: [address] [place] [address] Result Comment: <130 mg/dL, Optimal 130-159 mg/dL, Near optimal/above optimal 160-189 mg/dL, Borderline high 190-219 mg/dL, High >219 mg/dL, Very high Secondary prevention optimal non HDL Cholesterol levels are recommended to be <100 mg/dL Performed By: #### L IPNF, , ####[facility] [id number] [address] T CHOL/HDL RATIO NF 1.81 mg/dL Normal <5.10 [facility] Comment on above: Order Comment: Speci men Type: BLOOD SPECIMENOrdering Facility: [facility] Address: [address] [place] [address] Performed By: #### L IPNF, , ####[facility] [id number] [place] [id number] [place] TRIGLYCERIDES, NF 47 mg/dL Normal <150 [facility] Comment on above: Order Comment: Speci men Type: BLOOD SPECIMENOrdering Facility: [facility] Address: [address] [place] [address] Result Comment: <150 mg/dL, Normal 150-199 mg/dL, Borderline high 200-499 mg/dL, High >499 mg/dL, Very high Performed By: #### L IPNF, , ####[facility] [id number] [place] [address] [place] VLDL CHOLESTEROL, NF 7 mg/dL Normal <30 [facility] Comment on above: Order Comment: Speci men Type: BLOOD SPECIMENOrdering Facility: [facility] Address: [address] [place] [address] Performed By: #### L IPNF, , ####[facility] [id number] [place] [address] [place] Magnesium [facility] Magnesium [Mass/Vol] 2.2 mg/dL Normal 1.7-2.3 [facility] Comment on above: Order Comment: Speci men Type: BLOOD SPECIMENOrdering Facility: [facility] Address: [address] [place] [address] Performed By: #### L IPNF, , ####[facility] [id number] [place] [id number] [place] Cardiology Visit Reporton Cardiology Visit Report [facility] [address] [place] [address] OFFICE VISIT Date of Service: 03/29/25 MR#: [id number] Acct: [id number] Name: DENNY GOMEZ Rep #: [id number] : 1955 Provider: Dr. Sidney Motta MD Age/Sex: 69/M Location: [facility] Status: Signed HPI HPI History of Present Illness Details: Mr. Gomez is a very pleasant 69-year-old gentleman who presents to the office today for a cardiovascular follow-up visit. He has a history of hypertension, hyperlipidemia, carotid artery disease s/p R AND LEFT CEA, severe peripheral vascular disease. 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 Brother , AT No problems noted. Brother , FROM LUNG CANCER Lung cancer Social History Smoking Status: Former smoker alcohol intake: never substance use type: does not use ROS Const Const: Negative for fatigue, weakness, headache(s), day (more content not included)... Normal [facility] OCT OPTIC NERVE CIRRUS OU (B OTH EYES)on 03-14-2025 [facility] Radiology Study observation (narrative) [facility] Absolute lymphocyte countOrd ered By: Oscar Beckford on 03-07-2025 Lymphocytes Auto (Unsp spec) [#/Vol] 1.59 10*3/uL 0.83-4.51 [facility] Absolute neutrophil countOrd ered By: [facility] on 03-07-2025 Neutrophils (Bld) [#/Vol] 4.7 10*3/uL 2.0-7.7 [facility] Anion gap in Serum or Plasma Ordered By: [facility] on 03-07-2025 Anion gap [Moles/Vol] 11 mmol/L 5-15 [facility] Automated lymphocyte count a s percentage of total leukocytesOrdered By: [facility] on 03-07-2025 Lymphocytes/100 WBC Auto (Unsp spec) 23.2 % 19-41 [facility] BUN/creatinine ratioOrdered By: Oscar alexandroDarlin on 03-07-2025 Urea nitrogen/Creatinine [Mass ratio] 16.7 mg/mg 10- [facility] Basic Metabolic Profile (BMP )on 03-07-2025 BUN/CRE 16.7 RATIO Normal - [facility] Comment on above: Performed By: #### L 500.2500, L100.0100 #### [facility] [address] [place], [address] Calcium [Mass/Vol] 9.6 mg/dL Normal 7.6-11.0 [facility] Comment on above: Performed By: #### L 500.2500, L100.0100 #### [facility] [address] [place], [address] Chloride [Moles/Vol] 106 mmol/L Normal 98-108 [facility] Comment on above: Performed By: #### L 500.2500, L100.0100 #### [facility] [address] [place], [address] CO2 [Moles/Vol] 22.6 mmol/L Normal 21.0-32.0 [facility] Comment on above: Performed By: #### L 500.2500, L100.0100 #### [facility] [address] [place], [address] Creatinine [Mass/Vol] 0.87 mg/dL Normal 0.70-1.20 [facility] Comment on above: Performed By: #### L 500.2500, L100.0100 #### [facility] [address] [place], [address] ECRCL 75.88 ml/min Normal 50-250 [facility] Comment on above: Performed By: #### L 500.2500, L100.0100 #### [facility] [address] [place], [address] GAP 11 Normal 5-15 [facility] Comment on above: Performed By: #### L 500.2500, L100.0100 #### [facility] [address] [place], [address] GFR/1.73 sq M.predicted among non-blacks MDRD (S/P/Bld) [Vol rate/Area] 93 mL/min/{1.73_m2} Normal >60 [facility] Comment on above: Result Comment: mL/m in/1.73m2 CKD-EPI Creatinine Equation (2020) Performed By: #### L 500.2500, L100.0100 #### [facility] [address] [place], [address] Glucose [Mass/Vol] 84 mg/dL Normal 70-99 [facility] Comment on above: Performed By: #### L 500.2500, L100.0100 #### [facility] [address] [place], [address] Potassium [Moles/Vol] 4.3 mmol/L Normal 3.3-5.1 [facility] Comment on above: Performed By: #### L 500.2500, L100.0100 #### [facility] [address] [place], [address] Sodium [Moles/Vol] 139 mmol/L Normal 133-145 [facility] Comment on above: Performed By: #### L 500.2500, L100.0100 #### [facility] [address] [place], [address] Urea nitrogen [Mass/Vol] 15 mg/dL Normal 4-19 [facility] Comment on above: Performed By: #### L 500.2500, L100.0100 #### [facility] [address] [place], [address] Basophil percentageOrdered B y: Oscar Beckford on 03-07-2025 Basophils/100 WBC (Bld) 0.6 % 0-1 [facility] CBC W/Diff, Automatedon 08-0 Absolute Lymph 1.59 X10 3/uL Normal 0.83-4.51 [facility] Comment on above: Performed By: #### L 500.2500, L100.0100 #### [facility] [address] [place], [address] Absolute Neut 4.7 X10 3/uL Normal 2.0-7.7 [facility] Comment on above: Performed By: #### L 500.2500, L100.0100 #### [facility] [address] [place], [address] Basophils/100 WBC (Bld) 0.6 % Normal 0-1 [facility] Comment on above: Performed By: #### L 500.2500, L100.0100 #### [facility] [address] [place], [address] Eosinophils/100 WBC (Bld) 0.4 % Normal 0-5 [facility] Comment on above: Performed By: #### L 500.2500, L100.0100 #### [facility] [address] [place], [address] Erythrocyte distribution width (RBC) [Ratio] 12.0 % Normal 11.6-14.6 [facility] Comment on above: Performed By: #### L 500.2500, L100.0100 #### [facility] [address] [place], [address] Hematocrit (Bld) [Volume fraction] 41.4 % Normal 40-54 [facility] Comment on above: Performed By: #### L 500.2500, L100.0100 #### [facility] [address] [place], [address] Hemoglobin (Bld) [Mass/Vol] 14.0 g/dL Normal 13.0-16.5 [facility] Comment on above: Performed By: #### L 500.2500, L100.0100 #### [facility] [address] [place], [address] IG% 0.300 Normal 0.0-0.9 [facility] Comment on above: Result Comment: IG% - Immature Granulocytes (promyelocytes, myelocytes and metamyelocytes) > 1% indicates that a LEFT SHIFT is Present. Performed By: #### L 500.2500, L100.0100 #### [facility] [address] [place], [address] Lymphocytes/100 WBC (Bld) 23.2 % Normal 19-41 [facility] Comment on above: Performed By: #### L 500.2500, L100.0100 #### [facility] [address] [place], [address] MCH (RBC) [Entitic mass] 32.8 pg High 27.0-32.0 [facility] Comment on above: Performed By: #### L 500.2500, L100.0100 #### [facility] [address] [place], [address] MCHC (RBC) [Mass/Vol] 33.8 g/dL Normal 32-36 [facility] Comment on above: Performed By: #### L 500.2500, L100.0100 #### [facility] [address] [place], [address] MCV (RBC) [Entitic vol] 97.0 fL High 80-94 [facility] Comment on above: Performed By: #### L 500.2500, L100.0100 #### [facility] [address] [place], [address] Monocytes/100 WBC (Bld) 6.7 % Normal 0-10 [facility] Comment on above: Performed By: #### L 500.2500, L100.0100 #### [facility] [address] [place], [address] Neutrophils/100 WBC (Bld) 68.8 % Normal 47-70 [facility] Comment on above: Performed By: #### L 500.2500, L100.0100 #### [facility] [address] [place], [address] Nucleated RBC (Bld) [#/Vol] 0 10*3/uL Normal 0-5 [facility] Comment on above: Performed By: #### L 500.2500, L100.0100 #### [facility] [address] [place], [address] Platelet mean volume (Bld) [Entitic vol] 10.9 fL Normal 6.2-12.0 [facility] Comment on above: Performed By: #### L 500.2500, L100.0100 #### [facility] [address] [place], [address] Platelets (Bld) [#/Vol] 205 10*3/uL Normal 150-450 [facility] Comment on above: Performed By: #### L 500.2500, L100.0100 #### [facility] [address] [place], [address] RBC (Bld) [#/Vol] 4.27 10*6/uL Low 4.6-6.2 [facility] Comment on above: Performed By: #### L 500.2500, L100.0100 #### [facility] [address] [place], [address] RDW SD 42.9 fl Normal 35.1-43.9 [facility] Comment on above: Performed By: #### L 500.2500, L100.0100 #### [facility] [address] [place], [address] WBC (Bld) [#/Vol] 6.9 10*3/uL Normal 4.4-11.0 [facility] Comment on above: Performed By: #### L 500.2500, L100.0100 #### [facility] [address] [place], [address] CTA Head W/WO Contraston CTA Head W/WO Contrast [facility] [address] [place] [address] CTA Head W/WO Contrast MR#: [id number] Acct: [id number] Name: JASONDENNY Rep #: [id number] : 1955 M 69 From: Morris Naranjo MD PCP: Dr. Malu Rowe MD Status: REG ER Study: CTA Head W/WO Contrast Date of Exam: 03/07/25 Exam# [id number] Ordering Dr: Oscar Beckford DO PROCEDURE: CTA [...] extra-axial fluid collection is seen. CT angiogram: [place]: Patent, small caliber posterior communicating [...] parietal lobe. No acute ischemia. Reading Location: [id number] CC: Dr. Oscar Beckford DO; Dr. Malu Rowe MD Supervisor Furnace Room: Signed Normal [facility] Carbon dioxide, total [Moles /volume] in Central venous bloodOrdered By: Oscar Beckford on 03-07-2025 CO2 [Moles/Vol] 22.6 mmol/L 21.0-32.0 [facility] Chloride assayOrdered By: Sung Beckford on 03-07-2025 Chloride [Moles/Vol] 106 mmol/L 98-108 [facility] Emergency Department Summary on 03-07-2025 Emergency Department Summary [facility] Medical Records Department [address] [place] [address] Emergency Department Summary 03/07/25 MR#: [id number] Acct: [id number] Name: DENNY GOMEZ Rep #: [id number] : 1955 69 From: Oscar Beckford DO [...] Psych: Cooperative, appropriate mood and affect [facility] History (Reviewed 03/17/24 @ 15:25 by Beth Funk [employer]ING [employer]QUIPMENT [employer]ENDER, [employer]ASS [employer]LOADING [employer]QUIPMENT [employer]ER-C) 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 Brother , AT No problems noted. Brother , FROM LUNG CANCER Lung cancer Surgical History (Reviewed 03/17/24 @ 15:25 by Beth Funk [employer]ASS UNLOADING EQUIPMENT TENDER, GLASS UNLOADING EQUIPMENT TENDER-C) Hx of bilateral cataract extraction ( 11/07/22) [...] (more content not included)... Normal [facility] Eosinophil percentageOrdered By: Oscar Beckford on 03-07-2025 Eosinophils/100 WBC (Bld) 0.4 % 0-5 [facility] Erythrocyte distribution wid th ratioOrdered By: Oscar Beckford on 03-07-2025 Erythrocyte distribution width (RBC) [Ratio] 12.0 % 11.6-14.6 [facility] Erythrocyte distribution wid th standard deviationOrdered By: Oscarbobby Saeed on 03-07-2025 Erythrocyte distribution width (RBC) [Ratio] 42.9 fl 35.1-43.9 [facility] Glomerular filtration rate ( GFR) estimation/1.73 sq m using serum, plasma, or whole bOrdered By: Oscar Beckford on 03-07-2025 GFR/1.73 sq M.predicted among non-blacks MDRD (S/P/Bld) [Vol rate/Area] 93 mL/min/{1.73_m2} >60 [facility] Comment on above: mL/min/1.73m2 CKD-EP I Creatinine Equation (2020) Hematocrit Auto (Bld) [Volum e fraction]Ordered By: Oscar Beckford on 03-07-2025 Hematocrit (Bld) [Volume fraction] 41.4 % 40-54 [facility] Hemoglobin measurementOrdere d By: Oscar Beckford on 03-07-2025 Hemoglobin (Bld) [Mass/Vol] 14.0 g/dL 13.0-16.5 [facility] Immature granulocytes/100 WB C Auto (Bld)Ordered By: Oscar Beckford on 03-07-2025 Immature granulocytes/100 WBC (Bld) 0.300 % 0.0-0.9 [facility] Comment on above: IG% - Immature Granu locytes (promyelocytes, myelocytes and metamyelocytes) > 1% indicates that a LEFT SHIFT is Present. MCV (mean corpuscular volume ) determinationOrdered By: Oscar Beckford on 03-07-2025 MCV (RBC) [Entitic vol] 97.0 fL High 80-94 [facility] Mean corpuscular hemoglobin (MCH) determinationOrdered By: Oscar Beckford on 03-07-2025 MCH (RBC) [Entitic mass] 32.8 pg High 27.0-32.0 [facility] Mean corpuscular hemoglobin concentration (MCHC) determinationOrdered By: Oscar Beckford on 03-07-2025 MCHC (RBC) [Mass/Vol] 33.8 g/dL 32-36 [facility] Mean platelet volume determi nationOrdered By: Oscar Beckford on 03-07-2025 Platelet mean volume (Bld) [Entitic vol] 10.9 fL 6.2-12.0 [facility] Monocyte percentageOrdered B y: Oscar Beckford on 03-07-2025 Monocytes/100 WBC (Bld) 6.7 % 0-10 [facility] Neutrophil percentageOrdered By: Oscar Beckford on 03-07-2025 Neutrophils/100 WBC (Bld) 68.8 % 47-70 [facility] Nucleated red blood cell per centageOrdered By: Oscar Beckford on 03-07-2025 Nucleated RBC/100 WBC (Bld) [Ratio] 0 % 0-5 [facility] Platelet countOrdered By: Sung Beckford on 03-07-2025 Platelets (Bld) [#/Vol] 205 10*3/uL 150-450 [facility] Potassium measurement (mass/ volume)Ordered By: Oscar Beckford on 03-07-2025 Potassium (Unsp spec) [Mass/Vol] 4.3 mmol/L 3.3-5.1 [facility] RBC Auto (Bld) [#/Vol]Ordere d By: Oscar Beckford on 03-07-2025 RBC (Bld) [#/Vol] 4.27 10*6/uL Low 4.6-6.2 [facility] Serum creatinine measurement (mass/volume)Ordered By: Oscar Beckford on 03-07-2025 Creatinine [Mass/Vol] 0.87 mg/dL 0.70-1.20 [facility] Serum glucose measurement (m ass/volume)Ordered By: Oscar Beckford on 03-07-2025 Glucose [Mass/Vol] 84 mg/dL 70-99 [facility] Serum or plasma calcium jerzy urement (mass/volume)Ordered By: Oscar Saeed on 03-07-2025 Calcium [Mass/Vol] 9.6 mg/dL 7.6-11.0 [facility] Serum or plasma urea nitroge n measurement (mass/volume)Ordered By: Oscar Beckford on 03-07-2025 Urea nitrogen [Mass/Vol] 15 mg/dL 4-19 [facility] Sodium levelOrdered By: Guilherme Beckford on 03-07-2025 Sodium [Moles/Vol] 139 mmol/L 133-145 [facility] White blood cell (WBC) count Ordered By: Oscar Beckford on 03-07-2025 WBC (Bld) [#/Vol] 6.9 10*3/uL 4.4-11.0 [facility] CNOVon 02-11-2025 CNOV Office Visit ([facility] ) DENNY GOMEZ ([id number]) 1955 M Date Time Provider Department 02/11/25 9:00 AM MOISES PENDLETON [facility] During your visit today, we recorded the following information about you: Temperature Pulse Respiration Blood pressure 98.6 degrees 66/minute 18/minute 133/73 Weight Height 69.6 kg 1.727 m Moises Pendleton MD 02/11/2025 9:42 AM Signed [facility] New Patient Consult Note SERVICE DATE: [...] (more content not included)... Normal [facility] CNPNon 01-26-2025 CNPN Telephone (INTMWS) DENNY GOMEZ ([id number]) 1955 M Date Time Provider Department 01/26/25 MALU ROWE INTWS During your visit today, we recorded the [...] nose Date Reviewed: 12/30/2024 Reviewed by: Layne Mario, RT(R) - Fully Assessed Reason for Visit: [...] 03/31/2020 Intracranial atherosclerosis [I67.2] 03/31/2020 Atherosclerosis of iqugmiut artery of extremity w*04/04/2020 Iliac artery injury, [...] Encounter Status:Closed by LYN MATTA [facility] Telephone (NECVS8) DENNY GOMEZ ([id number]) 1955 M Date Time Provider Department 01/04/25 Carolin FANG NECVS8 During your visit today, we recorded the following information about you: Layne Riggins 01/04/2025 12:06 PM Signed CV PHONE Name of caller : Mrs. Gomez Relationship to patient : Spouse If not self Will need patient permission to release results or disclose health information with called documented in . Patient identified by Name and Date of . ( Denny Gomez, 1955). Yes Number to return call [phone] Reason for Call: Results: Results Calling office requesting result of CT scan test, completed on 12-31-24. Please call patient back at number above. Thank you calling [facility]. You will receive a return call within [...] 03/31/2020 Intracranial atherosclerosis [I67.2] 03/31/2020 Atherosclerosis of iqugmiut artery of extremity w*04/04/2020 Iliac artery injury, left, initial encounter [S*04/04/2020 09/27/2024 On mechanically assisted ventilation (HCC) [Z99*04/04/2020 04/05/2020 Stress hyperglycemia [R73.9] 04/04/2020 04/06/2020 Post-op pain [G89.18] 04/04/2020 04/08/2020 Facial swelling [R22.0] 04/05/2020 09/27/2024 Abnormal hemoglobin (Hgb) ([facility]) [D58.2] 04/07/2020 04/17/2021 Vitamin D deficiency [E55.9] 02/26/2021 Recurrent depressive disorder, in remission (HC*02/26/2021 09/27/2024 Primary open angle glaucoma (POAG) of right eye*08/30/2022 Primary open angl (more content not included)... Normal [facility] CT Neck W contrast Lucius 05-3 * * *Final Report* * * DATE OF EXAM: Dec 31 2024 11:02AM [facility] 0024 - CTA NECK W [...] occlusion, or aneurysm. DIVISION OF RADIOLOGY Provider, Kinsey Bebeto [facility] - 12/31/2024 * * *Final Report* * * DATE OF EXAM: Dec 31 2024 11:02AM [facility] 0024 - CTA NECK W [...] bilaterally. Multifocal atherosclero (more content not included)... [facility] CTA HEAD WO/W IVCONon 2024 CTA HEAD WO/W IVCON * * *Final Report* * * DATE OF EXAM: Dec 31 2024 11:02AM [facility] 0023 - CTA HEAD WO/W [...] V3 se (more content not included)... Normal [facility] CTA Head vessels WO and W co ntrast Lucius 12-31-2024 * * *Final Report* * * DATE OF EXAM: Dec 31 2024 11:02AM [facility] 0023 - CTA HEAD WO/W [...] occlusion, or aneurysm. DIVISION OF RADIOLOGY Provider, [facility] - 12/31/2024 * * *Final Report* * * DATE OF EXAM: Dec 31 2024 11:02AM [facility] 0023 - CTA HEAD WO/W [...] atherosclerotic plaque is (more content not included)... [facility] CTA NECK W IVCONon CTA NECK W IVCON * * *Final Report* * * DATE OF EXAM: Dec 31 2024 11:02AM [facility] 0024 - CTA NECK W [...] the dis (more content not included)... Normal [facility] Creatinine + eGFR Pnl SerPlB ldon 12-31-2024 Creatinine and Glomerular filtration rate.predicted panel (S/P/Bld) 94 mL/min/1.73m??? Normal >=60 [facility] Comment on above: Order Comment: Sagar guan Type: BLOOD SPECIMENOrdering Facility: [facility] Address: [address] [place] [address] Result Comment: Sheridan mated Glomerular Filtration Rate [...] actual GFR. Performed By: #### 4 5066-8 ####[facility] [id number] [place] [address] [place] Creatinine and Glomerular fi ltration rate.predicted panel (S/P/Bld)on 12-31-2024 Creatinine [Mass/Vol] 0.83 mg/dL Normal 0.73-1.22 [facility] Comment on above: Order Comment: Sagar guan Type: BLOOD SPECIMENOrdering Facility: [facility] Address: [address] [place] [address] Performed By: #### 4 5066-8 ####[facility] [id number] [address] [place] No Panel Informationon 12-31 [...] by computer aided detection software: Not Performed Supervisor Furnace Room: TORY Transcribe Date/Time: Dec 31 2024 11:10A Dictated by : DEJA BARAHONA MD This examination was interpreted and the report reviewed and electronically signed by: DEJA BARAHONA MD on Dec 31 2024 11:20AM [facility] DIVISION OF RADIOLOGY Radiology Study observation (narrative) [facility] No Panel InformationOrdered By: Ccf Provider on 12-31-2024 [facility] PSA,Total- Diagnosticon 12-03 PSA, DIAGNOSTIC 0.89 ng/mL Normal 0.00-4.00 [facility] Comment on above: Result Comment: This [...] By: #### L 501.9940 #### [facility] [address] [place], [address] CNOVon 12-21-2024 CNOV Office Visit (NECVS8 ) DENNY GOMEZ ([id number]) 1955 M Date Time Provider Department 12/21/24 10:00 AM Carolin FANG NECVS8 During your visit today, we recorded the following information about you: Pulse Blood pressure Weight Height 70/minute 117/63 70.3 kg 1.727 m Carolin Fang MD 12/23/2024 11:16 AM Signed [facility] Roger Olu (Patient previously seen by me, but not [...] asymptomatic, left COPD (chronic obstructive pulmonary disease) ([facility]) Critical lower limb ischemia ([facility]) Essential hypertension History: home Norvasc, lisinopril Assessment: [...] History T (more content not included)... Normal [facility] Sheila 11-05-2024 CNPN Telephone (NIQ) DENNY GOMEZ ([id number]) 1955 M Date Time Provider Department 11/05/24 NEUROLOGY PROVIDER NIQ During your visit today, we recorded the following information about you: Sourav Nancy 11/05/2024 2:55 PM Signed ENDOVASCULAR INTAKE Patient [...] (referring provider) Carlos A Kennedy MD in [facility] Has your referring provider recommended a specific [...] Out of state residents must be in [place] at the time of their virtual visit. In Person Specific day of the week or time of day? Any Time Do you prefer to be notified of your appointment by phone or Elephant.ist message? Phone Call (Betsey hubbard) Thank you for speaking with me today. Your information will now be forwarded to our endovascular advance practice provider team to review and provide scheduling recommendations. Please allow 3 business days to hear back from us. If you do not, feel free to call back [phone] for an update. Allergies As of Date: [...] stenosis [I65.23] 03/24/2020 PAD (peripheral artery disease) ([facility]) [I73.9] 03/25/2020 S/P carotid endarterectomy [Z98.890] 03/25/2020 H/O ischemic left MCA stroke [Z86.73] 03/31/2020 Intracranial atherosclerosis [I67.2] 03/31/2020 Atherosclerosis of iqugmiut artery of extremity w*04/04/2020 Iliac artery injury, left, initial encounter [S*04/04/2020 09/27/2024 On mechanically assisted ventilation ([facility]) [Z99*04/04/2020 04/05/2020 Stress hyperglycemia [R73.9] 04/04/2020 04/06/2020 Post-op pain [G89.18] 04/04/2020 04/08/2020 Facial swelling [R22.0] 04/05/2020 09/27/2024 Abnormal hemoglobin (Hgb) ([facility]) [D58.2] 04/07/2020 04/17/2021 Vitamin D deficiency [E55.9] 02/26/2021 Recurrent depressive disorder, in remission (HC*02/26/2021 09/27/2024 Primary open angle glaucoma (POAG) of (more content not included)... Normal [facility] CT CHEST WO IVCONon 11-02-19 CT CHEST WO IVCON * * *Final Report* * * DATE OF EXAM: Nov 01 2024 3:46PM [facility] 0541 - CT CHEST WO [...] additional pulmonary nodules or suspect intrathoracic lymphadenopathy. Supervisor Furnace Room: PSCB Transcribe Date/Time: Nov 10 2024 9:04A Dictated by : SHASHANK ALONZO MD This examination was interpreted and the report reviewed and electronically signed by: SHASHANK ALONZO MD on Nov 10 2024 9:19AM EST [id number] Normal [facility] CNCOon 10-29-2024 CNCO Letter Text Normal [facility] CNPNon 10-29-2024 CNPN Telephone (FAMPWS) DENNY GOMEZ ([id number]) 1955 M Date Time Provider Department 10/29/24 [facility] visit [facility], we recorded the [...] lung on CXR [R91.8] Order(s):CT CHEST WO IVCON [[id number]] Order #: [id number] FUTURE Prescriptions as of 11/01/2024 - rosuvastatin [...] stenosis [I65.23] 03/24/2020 PAD (peripheral artery disease) ([facility]) [I73.9] 03/25/2020 S/P carotid endarterectomy [Z98.890] 03/25/2020 H/O ischemic left MCA stroke [Z86.73] 03/31/2020 Intracranial atherosclerosis [I67.2] 03/31/2020 Atherosclerosis of iqugmiut artery of extremity w*04/04/2020 Iliac artery injury, left, initial encounter [S*04/04/2020 09/27/2024 On mechanically assisted ventilation (HCC) [Z99*04/04/2020 04/05/2020 Stress hyperglycemia [R73.9] 04/04/2020 04/06/2020 Post-op pain [G89.18] 04/04/2020 04/08/2020 Facial swelling [R22.0] 04/05/2020 09/27/2024 Abnormal hemoglobin (Hgb) ([facility]) [D58.2] 04/07/2020 04/17/2021 Vitamin D deficiency [E55.9] [...] Encounter Status:Closed by RITIKA MEZA on 11/01/24 [facility] 25([place]3 [facility] 25-hydroxyvitamin D3 [Mass/Vol] 40.7 ng/mL Normal 31.0-80.0 [facility] Comment on above: Order Comment: Speci men Type: BLOOD SPECIMEN Ordering Facility: [facility] Address: [address] [place] [address] Result Comment: Clas sification of 25 [place] Vitamin D status: Deficiency/Insufficiency: < or = 30 ng/ml. Sufficiency/Optimal Levels: 31-80 ng/mL Toxicity: > 100 ng/mL. Test performed by chemiluminescent immunoassay. Performed By: #### 5 7021-8 #### [facility] CLIA [id number] [address] [place] [address] [place] CBC panel Auto (Bld)on 10-27 Erythrocyte distribution width (RBC) [Ratio] 12.0 % Normal 11.5-15.0 [facility] Comment on above: Order Comment: Speci men Type: BLOOD SPECIMENOrdering Facility: [facility] Address: [address] [place] [address] Performed By: #### 5 8410-2 ####[facility] [id number] [address] [place] Hematocrit (Bld) [Volume fraction] 45.3 % Normal 39.0-51.0 [facility] Comment on above: Order Comment: Speci men Type: BLOOD SPECIMENOrdering Facility: [facility] Address: [address] [place] [address] Performed By: #### 5 8410-2 ####[facility] [id number] [place] [address] [place] Hemoglobin (Bld) [Mass/Vol] 14.8 g/dL Normal 13.0-17.0 [facility] Comment on above: Order Comment: Speci men Type: BLOOD SPECIMENOrdering Facility: [facility] Address: [address] [place] [address] Performed By: #### 5 8410-2 ####[facility] LABIA [id number] [place] [address] [place] MCH (RBC) [Entitic mass] 32.2 pg Normal 26.0-34.0 [facility] Comment on above: Order Comment: Speci men Type: BLOOD SPECIMENOrdering Facility: [facility] Address: [address] [place] [address] Performed By: #### 5 8410-2 ####[facility] LABIA [id number] [place] [address] [place] MCHC (RBC) [Mass/Vol] 32.7 g/dL Normal 30.5-36.0 [facility] Comment on above: Order Comment: Speci men Type: BLOOD SPECIMENOrdering Facility: [facility] Address: [address] [place] [address] Performed By: #### 5 8410-2 ####[facility] [id number] [place] [address] [place] MCV (RBC) [Entitic vol] 98.5 fL Normal 80.0-100.0 [facility] Comment on above: Order Comment: Speci men Type: BLOOD SPECIMENOrdering Facility: [facility] Address: [address] [place] [address] Performed By: #### 5 8410-2 ####[facility] [id number] [address] [place] Nucleated RBC (Bld) [#/Vol] 10*3/uL Normal <0.01 [facility] Comment on above: Order Comment: Speci men Type: BLOOD SPECIMENOrdering Facility: [facility] Address: [address] [place] [address] Performed By: #### 5 8410-2 ####[facility] [id number] [place] [address] [place] Platelet mean volume (Bld) [Entitic vol] 11.5 fL Normal 9.0-12.7 [facility] Comment on above: Order Comment: Speci men Type: BLOOD SPECIMENOrdering Facility: [facility] Address: [address] [place] [address] Performed By: #### 5 8410-2 ####[facility] LABIA [id number] [place] [address] [place] Platelets (Bld) [#/Vol] 200 10*3/uL Normal 150-400 [facility] Comment on above: Order Comment: Speci men Type: BLOOD SPECIMENOrdering Facility: [facility] Address: [address] [place] [address] Performed By: #### 5 8410-2 ####[facility] LABIA [id number] [place] [address] [place] RBC (Bld) [#/Vol] 4.60 10*6/uL Normal 4.20-6.00 [facility] Comment on above: Order Comment: Speci men Type: BLOOD SPECIMENOrdering Facility: [facility] Address: [address] [place] [address] Performed By: #### 5 8410-2 ####[facility] LABIA [id number] [place] [address] [place] WBC (Bld) [#/Vol] 9.17 10*3/uL Normal 3.70-11.00 [facility] Comment on above: Order Comment: Speci men Type: BLOOD SPECIMENOrdering Facility: [facility] Address: [address] [place] [address] Performed By: #### 5 8410-2 ####[facility] [id number] [place] [id number] [place] CNOVon 10-27-2024 CNOV Office Visit (INTMWS ) DENNY GOMEZ ([id number]) 1955 M Date Time Provider Department 10/27/24 2:00 PM MALU ROWE INTMWS During your visit today, we recorded the following information about you: Pulse Blood pressure Weight 67/minute 113/73 69.6 kg Malu Rowe MD 10/27/2024 3:11 PM Signed This note was created using Lattice [employer]. Subjective Denny Gomez is a 69 year [...] MEDICAL HISTORY Diagnosis Date Abnormal hemoglobin (Hgb) ([facility]) 04/07/2020 Hx: POD2 labs with drop in hemoglobin to 8.4 from baseline 10.6; transfused 1u PRBC POD2 A: asymptomatic, no associated tachycardia or hypotension P: f/u AM CBC Adenocarcinoma of prostate ([facility]) 03/25/2023 Anxiety and depression BPH (benign prostatic hyperplasia) Carotid artery stenosis, asymptomatic, left COPD (chronic obstructive pulmonary disease) ([facility]) Critical lower limb ischemia ([facility]) Essential hypertension History: home Norvasc, lisinopril Assessment: [...] intubated and sedated Plan: [place] Recurrent depressive disorder, in remission ([facility]) 02/26/2021 Stable on citalopram Stroke (cerebrum) ([facility]) Subdural hematoma ([facility]) 2019 Unspecified essential hypertension Essential hypertension Current [...] 15.7 Hematoc (more content not included)... Normal [facility] Comprehensive metabolic 2000 panelon 10-27-2024 Albumin [Mass/Vol] 4.6 g/dL Normal 3.9-4.9 [facility] Comment on above: Order Comment: Speci men Type: BLOOD SPECIMEN Ordering Facility: [facility] Address: [address] [place] [address] Performed By: #### 5 7021-8 #### [facility] CLIA [id number] [address] [place] [address] [place] ALP [Catalytic activity/Vol] 96 U/L Normal 38-113 [facility] Comment on above: Order Comment: Speci men Type: BLOOD SPECIMEN Ordering Facility: [facility] Address: [address] [place] [address] Performed By: #### 5 7021-8 #### [facility] CLIA [id number] [address] [place] [address] [place] ALT [Catalytic activity/Vol] 24 U/L Normal 10-54 [facility] Comment on above: Order Comment: Speci men Type: BLOOD SPECIMEN Ordering Facility: [facility] Address: [address] [place] [address] Performed By: #### 5 7021-8 #### [facility] CLIA [id number] [address] [place] [address] [place] Anion gap [Moles/Vol] 13 mmol/L Normal 8-15 [facility] Comment on above: Order Comment: Speci men Type: BLOOD SPECIMEN Ordering Facility: [facility] Address: [address] [place] [address] Performed By: #### 5 7021-8 #### [facility] CLIA [id number] [address] [place] [address] [place] AST [Catalytic activity/Vol] 24 U/L Normal 14-40 [facility] Comment on above: Order Comment: Speci men Type: BLOOD SPECIMEN Ordering Facility: [facility] Address: [address] [place] [address] Performed By: #### 5 7021-8 #### [facility] CLIA [id number] [address] [place] [address] [place] Bilirubin [Mass/Vol] 0.4 mg/dL Normal 0.2-1.3 [facility] Comment on above: Order Comment: Speci men Type: BLOOD SPECIMEN Ordering Facility: [facility] Address: [address] [place] [address] Performed By: #### 5 7021-8 #### [facility] CLIA [id number] [address] [place] [address] [place] Calcium [Mass/Vol] 9.9 mg/dL Normal 8.5-10.2 [facility] Comment on above: Order Comment: Speci men Type: BLOOD SPECIMEN Ordering Facility: [facility] Address: [address] [place] [address] Performed By: #### 5 7021-8 #### [facility] CLIA [id number] [address] [place] [address] [place] Chloride [Moles/Vol] 106 mmol/L Normal 98-107 [facility] Comment on above: Order Comment: Speci men Type: BLOOD SPECIMEN Ordering Facility: [facility] Address: [address] [place] [address] Performed By: #### 5 7021-8 #### [facility] CLIA [id number] [address] [place] [address] [place] CO2 [Moles/Vol] 22 mmol/L Normal 22-30 [facility] Comment on above: Order Comment: Speci men Type: BLOOD SPECIMEN Ordering Facility: [facility] Address: [address] [place] [address] Performed By: #### 5 7021-8 #### [facility] CLIA [id number] [address] [place] [address] [place] Creatinine [Mass/Vol] 0.90 mg/dL Normal 0.73-1.22 [facility] Comment on above: Order Comment: Speci men Type: BLOOD SPECIMEN Ordering Facility: [facility] Address: [address] [place] [address] Performed By: #### 5 7021-8 #### [facility] CLIA [id number] [address] [place] [address] Creatinine and Glomerular filtration rate.predicted panel (S/P/Bld) 92 mL/min/1.73m??? Normal >=60 [facility] Comment on above: Order Comment: Speci men Type: BLOOD SPECIMEN Ordering Facility: [facility] Address: [address] [place] [address] Result Comment: Sheridan mated Glomerular Filtration Rate [...] GFR. Performed By: #### 5 7021-8 #### [facility] CLIA [id number] [address] [place] [address] [place] Glucose [Mass/Vol] 85 mg/dL Normal 74-99 [facility] Comment on above: Order Comment: Sagar guan Type: BLOOD SPECIMEN Ordering Facility: [facility] Address: [address] [place] [address] Result Comment: The [place] Diabetes Association (ADA) provides guidance for cutoff [...] Standards of Medical Care in Diabetes 2016, [place] [employer] Association. Diabetes Care. 2016.39(Suppl 1). Performed By: #### 5 7021-8 #### [facility] CLIA [id number] [address] [place] [address] [place] Potassium [Moles/Vol] 5.2 mmol/L High 3.7-5.1 [facility] Comment on above: Order Comment: Sagar guan Type: BLOOD SPECIMEN Ordering Facility: [facility] Address: [address] [place] [address] Performed By: #### 5 7021-8 #### [facility] CLIA [id number] [address] [place] [address] [place] Protein [Mass/Vol] 7.1 g/dL Normal 6.3-8.0 [facility] Comment on above: Order Comment: Sagar guan Type: BLOOD SPECIMEN Ordering Facility: [facility] Address: [address] [place] [address] Performed By: #### 5 7021-8 #### [facility] CLIA [id number] [address] [place] [address] [place] Sodium [Moles/Vol] 141 mmol/L Normal 136-144 [facility] Comment on above: Order Comment: Speci men Type: BLOOD SPECIMEN Ordering Facility: [facility] Address: [address] [place] [address] Performed By: #### 5 7021-8 #### [facility] CLIA [id number] [address] [place] [address] [place] Urea nitrogen [Mass/Vol] 15 mg/dL Normal 9-24 [facility] Comment on above: Order Comment: Speci men Type: BLOOD SPECIMEN Ordering Facility: [facility] Address: [address] [place] [address] Performed By: #### 5 7021-8 #### [facility] CLIA [id number] [address] [place] [address] [place] Magnesium SerPl-mCncon 10-27 Magnesium [Mass/Vol] 2.1 mg/dL Normal 1.7-2.3 [facility] Comment on above: Order Comment: Speci men Type: BLOOD SPECIMEN Ordering Facility: [facility] Address: [address] [place] [address] Performed By: #### 5 7021-8 #### [facility] CLIA [id number] [address] [place] [address] [place] T3Free SerPl-mCncon 10-28-19 25 Free T3 [Mass/Vol] 2.4 pg/mL Normal 2.3-4.1 [facility] Comment on above: Order Comment: Speci men Type: BLOOD SPECIMEN Ordering Facility: [facility] Address: [address] [place] [address] Performed By: #### 5 7021-8 #### [facility] CLIA [id number] [address] [place] [address] [place] T4 Free SerPl-mCncon 025 Free T4 [Mass/Vol] 1.2 ng/dL Normal 0.9-1.7 [facility] Comment on above: Order Comment: Speci men Type: BLOOD SPECIMEN Ordering Facility: [facility] Address: [address] [place] [address] Performed By: #### 5 7021-8 #### [facility] CLIA [id number] [address] [place] [address] [place] TSH SerPl-aCncon 10-27-2024 TSH Qn 0.745 m[IU]/L Normal 0.270-4.200 [facility] Comment on above: Order Comment: Speci men Type: BLOOD SPECIMEN Ordering Facility: [facility] Address: [address] [place] [address] Performed By: #### 5 7021-8 #### [facility] CLIA [id number] [address] [place] [address] [place] XR CHEST 2V FRONTAL/LATon [...] be communicated with the ordering provider via 123people staff message by [employer] within 2 business days of report finalization. Supervisor Furnace Room: PSCB Transcribe Date/Time: Oct 28 2024 2:36P Dictated by : GHAZALA DUBON MD This examination was interpreted and the report reviewed and electronically signed by: GHAZALA DUBON MD on Oct 28 2024 2:39PM EST [id number] [id number] Invalid Interpretation Code [facility] CNOVon 09-27-2024 CNOV Office Visit (INTMWS ) DENNY GOMEZ ([id number]) 1955 M Date Time Provider Department 09/27/24 7:40 PM ART DONOVAN INTMWS During your visit today, we recorded the following information about you: Temperature Pulse Blood pressure Weight 98.5 degrees 67/minute 116/62 70.5 kg Art Donovan MD 09/27/2024 8:07 PM Signed This note was created using [employer]. Subjective Patient presents with: Cough Nasal Congestion [...] Artery Stenosis Pad (Peripheral Artery Disease) ([facility]) S/P Carotid Endarterectomy H/O Ischemic Left Mca Stroke Intracranial Atherosclerosis Atherosclerosis of [place] Artery of Extremity With Intermittent Claudication (Hcc) Vitamin D Deficiency Primary Open Angle Glaucoma [...] Chronic Obstructive Pulmonary Disease, Unspecified Copd Type (Hcc) Social History Tobacco Use Smoking status: Every [...] Filippo Harrison (more content not included)... Normal [facility] VISUAL FIELD 24-2 OU (BOTH E YES)on 09-13-2024 [facility] Radiology Study observation (narrative) [facility] CNOVon 07-19-2024 CNOV Office Visit (ELSIE ) DENNY GOMEZ ([id number]) 1955 M Date Time Provider Department 07/19/24 3:30 PM CARLOS A KENNEDY During your visit today, we recorded the following information about you: Pulse Blood pressure 74/minute 123/63 Carlos A Kennedy MD 07/20/2024 8:22 AM Signed [facility] [place] DEPARTMENT OF VASCULAR SURGERY OUTPATIENT VISIT DATE July 19, 2024 OUTPATIENT VISIT TYPE ESTABLISHED SERVICE DATE: 07/19/2024 SERVICE TIME: 3:30 PM PRIMARY CARE PHYSICIAN: Malu Rowe MD HISTORY OF PRESENT ILLNESS: Mr. Gomez is a 69 year old male who presents today for a vascular surgery follow-up visit for his SOWMYA and PAD. He is s/p BL CEA, (L 2020, R?) and bilateral ileofemoral endarterectomies and profundaplasties with bilateral DANIELLE stenting, L EIA stenting, and R EIA stenting (2019 Rowse). Patient denies any pain in his legs at rest or with walking. He is unlimited in his walking. He has no wounds. He denies symptoms of amaurosis fugax, one sided weakness, facial droop, and aphasia. He is no longer taking a daily 81mg ASA, reports being instructed to stop by his river tester. He is currently smoking, unfortunately his has cancer and he has been smoking more with the stress of this. He has a history of a 5mm intracranial aneurysm that he has not had surveillance on since 2020. 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 Lukasz Beasley Paget disease of bone Stroke (cerebrum) ([facility]) Subdural hematoma ([facility]) 2019 Unspecified essential hypertension Essential hypertension PAST [...] no woun (more content not included)... Normal [facility] PVR ANK/HO/TOE [facility] on 07-19-2024 PVR ANK/HO/TOE [facility] Non-Invasive Vascular Laboratory [facility] F30 Lower Extremity Arterial Physiology Study Bilateral/Complete [...] Interpreting physician: Debbie Alarcon MD Final [facility] [employer] [facility] : [id number] oDynamicsSISUID See Link below for Image Normal [facility] US CAROTID ARTERIES [facility] LABon 07-19-2024 US CAROTID ARTERIES [facility] Non-Invasive Vascular Laboratory [facility] F30 Carotid Duplex Bilateral/Complete Date of service/time: [...] of hemodynamically significant stenosis. Technologist: Kirsten Wilson RVCorinne Ordering physician: CARLOS A KENNEDY Interpreting physician: Debbie Alarcon MD Final [facility] [employer] [facility] : [id number] ISUID See Link below for Image Normal [facility] LEG ARTERIAL PERIPH DAVID V LABon 07-19-2024 LEG ARTERIAL PERIPH [facility] Non-Invasive Vascular Laboratory [facility] F30 Lower Extremity Arterial Duplex Bilateral/Complete Date [...] prior exam done 05/11/2020. Technologist: Kirsten Wilson T Ordering physician: CARLOS A EKNNEDY Interpreting physician: Dbebie Alarcon MD Final [facility] [employer] [facility] : [id number] ISUID See Link below for Image Normal [facility] Lower extremity artery - bilateralon 07-19-2024 Non-Invasive Vascular Laboratory [facility] F30 Lower Extremity Arterial Duplex Bilateral/Complete Date [...] below for Image [facility] OCT OPTIC NERVE CIRRUS OU (B OTH EYES)on 03-29-2024 [facility] Radiology [facility]narrative) [facility] Basophil percentageOrdered B y: EDILBERTO Elias Rider on 09-17-2023 Basophil percentage 1.07 ng/mL 0.0-4.0 [facility] Comment on above: This test was perfor med using the TPSA assay method for theStat chemistry system. Values obtained with differentassay methods cannot be used interchangably.When changing PSA assays in the course of monitoring apatient, additional sequential testing should be carriedout to confirm baseline values. No Panel Informationon 05-01 [facility] Basophil percentageOrdered B y: EDILBERTO Rider on 04-02-2023 Chloride [Moles/Vol] 109 mmol/L 98-107 [facility] Glucose [Mass/Vol] 97 mg/dL 74-106 [facility] Potassium [Moles/Vol] 4.1 mmol/L 3.5-5.1 [facility] Sodium [Moles/Vol] 139 mmol/L 136-145 [facility] - Chemistry and C hemistry - challengeOrdered By: EDILBERTO Rider on 04-02-2023 CO2 [Moles/Vol] 26.0 mmol/L 21.0-32.0 [facility] Urea nitrogen/Creatinine [Mass ratio] 21.0 mg/mg 10-20 [facility] No Panel InformationOrdered By: EDILBERTO Rider on 04-02-2023 Estimated GFR (MDRD) Amer 101 mL/min >60 [facility] Comment on above: GFR Calc Estimated GFR (MDRD) Non-Af Amer 83 mL/min >60 [facility] Comment on above: Non- GFR Calc Prostate Specific Antigen Total 1.07 ng/mL 0.0-4.0 [facility] Comment on above: This test was perfor med using the TPSA assay method for [employer] chemistry system. Values obtained with differentassay methods [...] EVERYDAY AT BEDTIME Vitals Vital Signs Recorded: [id number] 10:21AM Heart Rate64 Movjvpqf268 [place]05 Height5 ft 10 in Glpbmu387 lb 6 oz BMI Vbwoghdjsq04.01 kg/m2 BSA Calculated1.86 Tobacco Useb) No PHQ-2 [...] on 04-02-2023 Calcium [Mass/Vol] 9.6 mg/dL 8.5-10.1 [facility] Serum or plasma creatinine m easurement (mass/volume)Ordered By: EDILBERTO Rider on 04-02-2023 Creatinine [Mass/Vol] 0.95 mg/dL 0.70-1.30 [facility] Comment on above: The validity of the calculated GFR & GFRAA in patients over 70 years has not been determined. Clinical correlation is essential. Serum or plasma urea nitroge n measurement (mass/volume)Ordered By: EDILBERTO Rider on 04-02-2023 Urea nitrogen [Mass/Vol] 20 mg/dL 7-18 [facility] Thin prep Papanicolaou smear with manual screeningOrdered By: EDILBERTO Rider on 04-02-2023 Thin prep Papanicolaou smear with manual screening 4 5-15 [facility] XR Chest PA and Lateralon IMPRESSION: No acute radiographic abnormality. No suspicious pulmonary nodule/lung mass identified. Supervisor Furnace Room: TORY Transcribe Date/Time: Mar 26 2023 10:17A Dictated by : JOEL MIRANDA DO This examination was interpreted and the report reviewed and electronically signed by: JOEL MIRANDA DO on Mar 26 2023 10:17AM EST DIVISION OF RADIOLOGY * * *Final Report* [...] soft tissues: Unremarkable. DIVISION OF RADIOLOGY Provider, [facility] - 03/26/2023 * * *Final Report* * [...] abnormality. No suspicious pulmonary nodule/lung mass identified. Supervisor Furnace Room: PSCB Transcribe Date/Time: Mar 26 2023 10:17A Dictated by : JOEL MIRANDA DO This examination was interpreted and the report reviewed and electronically signed by: JOEL MIRANDA DO on Mar 26 2023 10:17AM EST [facility] XR Chest PA and LateralOrder ed By: Cc Provider on 03-26-2023 [facility] CBC W Auto Differential pane l (Bld)on 03-25-2023 Basophils (Bld) [#/Vol] 0.06 10*3/uL <0.11 k/uL [facility] Basophils/100 WBC (Bld) 0.7 % C [facility] Differential cell count method Nom (Bld) Auto [facility] Eosinophils (Bld) [#/Vol] 0.07 10*3/uL <0.46 k/uL [facility] Eosinophils/100 WBC (Bld) 0.8 % [facility] Erythrocyte distribution width (RBC) [Ratio] 11.9 % 11.5 - 15.0 % [facility] Hematocrit (Bld) [Volume fraction] 46.6 % 39.0 - 51.0 % [facility] Hemoglobin (Bld) [Mass/Vol] 15.3 g/dL 13.0 - 17.0 g/dL [facility] Immature granulocytes (Bld) [#/Vol] 0.03 10*3/uL <0.10 k/uL [facility] Immature granulocytes/100 WBC (Bld) 0.3 % [facility] Lymphocytes (Bld) [#/Vol] 2.62 10*3/uL 1.00 - 4.00 k/uL [facility] Lymphocytes/100 WBC (Bld) 29.7 % [facility] MCH (RBC) [Entitic mass] 32.8 pg 26.0 - 34.0 pg [facility] MCHC (RBC) [Mass/Vol] 32.8 g/dL 30.5 - 36.0 g/dL [facility] MCV (RBC) [Entitic vol] 99.8 fL 80.0 - 100.0 fL [facility] Monocytes (Bld) [#/Vol] 0.67 10*3/uL <0.87 k/uL [facility] Monocytes/100 WBC (Bld) 7.6 % C [facility] Neutrophils (Bld) [#/Vol] 5.36 10*3/uL 1.45 - 7.50 k/uL [facility] Neutrophils/100 WBC (Bld) 60.9 % [facility] Nucleated RBC (Bld) [#/Vol] <0.01 k/uL [facility] Nucleated RBC/100 WBC (Bld) [Ratio] 0.0 /100 WBC [facility] Platelet mean volume (Bld) [Entitic vol] 11.1 fL 9.0 - 12.7 fL [facility] Platelets (Bld) [#/Vol] 227 10*3/uL 150 - 400 k/uL [facility] RBC (Bld) [#/Vol] 4.67 10*6/uL 4.20 - 6.0 0 m/uL [facility] WBC (Bld) [#/Vol] 8.81 10*3/uL 3.70 - 11.00 k/uL [facility] HbA1c (Bld)on 03-25-2023 Average glucose Estimated from glycated hemoglobin (Bld) [Mass/Vol] 94 mg/dL [facility] HbA1c (Bld) [Mass fraction] 4.9 % 4.3 - 5.6 % [facility] XR Chest PA and Lateralon Radiology Study observation (narrative) [facility] CREATININE, BLOOD (POC)on Creatinine [Mass/Vol] 0.90 mg/dL 0.7 - 1.4 mg/dL [facility] eGFR (POCT) [facility] No Panel Informationon 01-21 [facility] Order Reconciliationon 11-07 Order Reconciliation Page 1 [...] be shared with your follow-up providers (doctor, digital sales manager, physical therapist, etc.). Post Procedure Discharge Criteria [...] be shared with your follow-up providers (doctor, digital sales manager, physical therapist, etc.). Flomax 0.4 mg oral [...] tablet 1 tab( (more content not included)... 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), appropriate clothing, center location, insurance information Prep Instructions Reviewedyes Instructed to Have No Fluids Aftermidnight How to be AddressedJack Spoken Language PreferredEnglish Source of Informationpatient Stated Reason for Admissionleft cataract Primary Contact Name and [id number] Limitations on Visitors/Phone Callsnone Medications Brought to Hospital[facility] Health: Weight in kg71.1 kilogram(s) Weight in qyg427.7 pound(s) Weight Methodactual (measured) Scale Typestanding Height [...] Withspouse Living Arrangementsapartment Resource/Environmental Concernsnone Anticipated Transition [place] [facility] Anticipated at Transitionnone Tobacco Use: Tobacco Useyes Tobacco Typecigarettes Last Tobacco [id number] Number of Packs per Day0.1 Tobacco Commentapprox 2 cigarettes per day Pre-op Checklist: Arrival [id number] Arrival Time07:19 Procedure Typecataract left eye NPOyes Last Food Wcvjxd41-Ybn-5884 22:00 Last Clear Fluid Ukxemd43-Rdt-6238 22:00 ID Band On Patientpatient ID (name) [...] Updated: 07-Nov-2022 07:36 by Nicole Ching (NADYA) [facility] Order Reconciliationon 09-26 Order Reconciliation Page 1 [...] be shared with your follow-up providers (doctor, digital sales manager, physical therapist, etc.). Post Procedure Discharge Criteria [...] be shared with your follow-up providers (doctor, digital sales manager, physical therapist, etc.). Flomax 0.4 mg oral [...] mg oral table (more content not included)... 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 if no concrete truck driver), center location, insurance information Prep Instructions Reviewedyes Instructed to Have No Fluids Aftermidnight How to be AddressedJack Spoken Language PreferredEnglish Source of Informationpatient Stated Reason for Admissioncataract right eye Primary Contact Name and [phone] Medications Brought to [facility]: Weight in kg71.1 kilogram(s) Weight in prp119.7 pound(s) Weight Methodactual (measured) Scale Typestanding Height [...] Withspouse Living Arrangementsapartment Resource/Environmental Concernsnone [facility] Antic[facility] at Transitionnone Tobacco Use: Tobacco Useyes Tobacco Typecigarettes Last Tobacco [id number] Number of Packs per Day0.1 Tobacco Commentapprox 2 cigarettes per day Pre-op Checklist: Arrival [id number] Arrival Time08:17 Procedure Typecataract right eye NPOyes Last Food Dcoohy02-Bjm-2897 22:00 Last Clear Fluid Tofhqj40-Vbj-7515 22:00 ID Band On Patientpatient ID (name) [...] Updated: 26-Sep-2022 08:41 by Saba Lennon (RN) [facility] Office Visit (Urology)on Follow-up visit Diagnoses/Problems Assessed [...] Antigen Total 1.05 ng/mL 0.0-4.0 [facility] Work Phone: Comment on above: This test was perfor med using the TPSA assay method for Elasticsearch chemistry system. Values obtained with differentassay methods cannot be used interchangably.When changing PSA assays in the course of monitoring apatient, additional sequential testing should be carriedout to confirm baseline values. BD MRI PROSTATEon 02-26-2022 BD MRI PROSTATE Patient Name: DENNY GOMEZ STUDY: MRI PROSTATE; 02/26/2022 10:25 am INDICATION: none R97.20: Elevated PSA implant device BOBINE PERICARDIAL PATCH SERIAL [id number] MODEL 4700 IMPLANTE DATE 04/04/2020 [facility] [address] Per EMR: 66 M with elevated PSA of 4.0 (November 2021). 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 ACCESSION NUMBER(S): [id number] ORDERING CLINICIAN: ELIAS RIDER TECHNIQUE: Multiplanar MRI [...] x 4.9 cm x 4.7 cm in xaplc-dx-gnqp, anterior-posterior and craniocaudal dimension. Prostate volume is [...] as stated. This study was interpreted at [place], [place]. Electronically signed by: RHONDA LIU MD Normal [facility] MRI Prostateon 02-26-2022 MRI Prostate Normal IL-Rgctszx-V [facility] Work Phone: IO UA (automated w/o microsc opy)on 01-30-2022 Protein (U) [Mass/Vol] Negative MP -Urology-A [facility] Work Phone: IO UA (automated w/o microscopy) Negative PG-Lynmffh-Y [facility] Work Phone: IO UA (automated w/o microscopy) Normal NN-Kiwpdum-H [facility] Work Phone: IO UA (automated w/o microscopy) 5.0 1 SF-Tahgrld-H [facility] Work Phone: IO UA (automated w/o microscopy) Trace PS-Jgpvhuf-P [facility] Work Phone: IO UA (automated w/o microscopy) 1.025 1 FC-Vywehsf-Q [facility] Work Phone: IO UA (automated w/o microscopy) Clear VJ-Ukqvwtq-H [facility] Work Phone: IO UA (automated w/o microscopy) Yellow LL-Drxtchk-F [facility] Work Phone: Tobacco Screening.on Fall risk assessment a) No falls within the last year JL-Calnonj-R [facility] Work Phone: Tobacco use status [facility] b) No M P-Urology-A [facility] Work Phone: No Panel Informationon 11-16 Prostate Specific Antigen Screen 4.00 ng/mL 0.00-4.00 [facility] Work Phone: Comment on above: This test was perfor med using the TPSA assay method for Elasticsearch chemistry system. Values obtained with differentassay methods cannot be used interchangably.When changing PSA assays in the course of monitoring apatient, additional sequential testing should be carriedout to confirm baseline values. Tobacco Screening.on Fall risk assessment a) No falls within the last year YU-Ufztymj-O [facility] Work Phone: Tobacco use status [facility] b) No M P-Urology-A [facility] Work Phone: ALLIED HEALTHon 02-14-2020 ALLIED HEALTH HNO ID: [id number] Author: Karina (Ct) GEOVANNA Logan Service: Radiology Author Type: Clinical Accounting System Expert Type: [facility] Filed: 02/14/2020 8:55 AM [...] Completed: CTA Brain and CTA Neck SIGNATURE: GEOVANNA Flores PATIENT NAME: Denny Gomez DATE: February 14, 2020 TIME: 8:54 AM [facility] CTA HEAD W IVCONon 0 CTA HEAD W IVCON * * *Final Report* * * DATE OF EXAM: Feb 14 2020 8:54AM [facility] 0022 - CTA HEAD W IVCON / PROCEDURE REASON: Z98.890-Other specified postprocedural states * * * * Physician Interpretation * * * * CTA NECK W IVCON, CTA HEAD W IVCON HISTORY: Bruit - Carotid Stenosis (accession [id number]), Carotid stenosis (accession [id number]) TECHNIQUE: CTA head and neck. Post-processed images [...] right distal vertebral artery, basilar trunk and environmental engineering aide are normal in caliber. Proximal SCAs, AICAs and PICAs are patent. Opacified dural venous sinuses and major deep and superficial draining veins are patent. Right dominant bypsdybswe-jyysgur-esma lar drainage. Cement Mason Helper (topogram) images: No additional findings. IMPRESSION: Multifocal [...] reconstitution in the distal neck extending intracranially. Supervisor Furnace Room: TORY Transcribe Date/Time: Feb 14 2020 9:06A Dictated by : NANCY CAMERON MD This examination was interpreted and the report reviewed and electronically signed by: NANCY CAMERON MD on Feb 14 2020 9:28AM EST [id number] [facility] CTA NECK W IVCONon 0 CTA NECK W IVCON * * *Final Report* * * DATE OF EXAM: Feb 14 2020 8:54AM [facility] 0024 - CTA NECK W IVCON / PROCEDURE REASON: R09.89-Bruit * * * * Physician Interpretation * * * * CTA NECK W IVCON, CTA HEAD W IVCON HISTORY: Bruit - Carotid Stenosis (accession [id number]), Carotid stenosis (accession [id number]) TECHNIQUE: CTA head and neck. Post-processed images [...] right distal vertebral artery, basilar trunk and environmental engineering aide are normal in caliber. Proximal SCAs, AICAs and PICAs are patent. Opacified dural venous sinuses and major deep and superficial draining veins are patent. Right dominant vphpisbims-gfecbfs-vjxq lar drainage. Cement Mason Helper (topogram) images: No additional findings. IMPRESSION: Multifocal [...] reconstitution in the distal neck extending intracranially. Supervisor Furnace Room: [facility] Transcribe Date/Time: Feb 14 2020 9:06A Dictated by : NANCY CAMERON MD This examination was interpreted and the report reviewed and electronically signed by: NANCY CAMERON MD on Feb 14 2020 9:28AM EST [id number] Normal [facility] NURSING PROGon 02-14-2020 NURSING PROG HNO ID: [id number] Author: Oanh LearyRn) NADYA Mccloud Service: Radiology Author Type: Registered [...] February 14, 2020 TIME: 8:24 AM Normal [facility] CBCon 01-01-2020 ABSOLUTE BAS 0.1 10*3/uL Normal 0.0-0.2 [facility] Comment on above: Performed By: #### E LAWSON TRIMBLE, CHEM7F #### Testing performed at [address] [address] ABSOLUTE EOS 0.00 10*3/uL Normal 0.0-0.7 [facility] Comment on above: Performed By: #### E LAWSON TRIMBLE, CHEM7F #### Testing performed at [address] [address] ABSOLUTE NEUTROPHIL COUNT 6.5 10*3/uL Normal 1.4-6.5 [facility] Comment on above: Performed By: #### E LAWSON TRIMBLE, CHEM7F #### Testing performed at [address] [place] [address] Basophils/100 WBC (Bld) 0.8 % Normal 0.0-2.0 [facility] Comment on above: Performed By: #### Millicent SR, ACBC, CHEM7F #### Testing performed at [address] [place] [address] DTYPE AUTO DIFF Normal [facility] Comment on above: Performed By: #### E SR, ACBC, CHEM7F #### Testing performed at [address] [place] [address] Eosinophils/100 WBC (Bld) 0.4 % Normal 0.0-11.0 [facility] Comment on above: Performed By: #### Millicent TRIMBLE, ACBC, CHEM7F #### Testing performed at [address] [place] [address] Lymphocytes (Bld) [#/Vol] 2.10 10*3/uL Normal 1.2-3.4 [facility] Comment on above: Performed By: #### E , ACBC, CHEM7F #### Testing performed at [address] [place] [address] Lymphocytes/100 WBC (Bld) 22.5 % Normal 20.0-55.0 [facility] Comment on above: Performed By: #### E , ACBC, CHEM7F #### Testing performed at [address] [place] [address] Monocytes (Bld) [#/Vol] 0.6 10*3/uL Normal 0.0-0.7 [facility] Comment on above: Performed By: #### E SR, ACBC, CHEM7F #### Testing performed at [address] [place] [address] Monocytes/100 WBC (Bld) 6.7 % Normal 0.0-10.0 [facility] Comment on above: Performed By: #### E SR, ACBC, CHEM7F #### Testing performed at [address] [place] [address] Neutrophils/100 WBC (Bld) 69.6 % Normal 37.0-75.0 [facility] Comment on above: Performed By: #### Millicent TRIMBLE ACBC CHEM7F #### Testing performed at [address] [address] Erythrocyte distribution width (RBC) [Ratio] 13.0 % Normal 11.5-14.5 [facility] Comment on above: Performed By: #### Millicent TRIMBLE ACBC, CHEM7F #### Testing performed at [address] [address] Hematocrit (Bld) [Volume fraction] 41.3 % Low 42.0-52.0 [facility] Comment on above: Performed By: #### Millicent TRIMBLE ACBC, CHEM7F #### Testing performed at [address] [address] Hemoglobin (Bld) [Mass/Vol] 13.8 g/dL Low 14.0-18.0 [facility] Comment on above: Performed By: #### Millicent TRIMBLE ACBC, CHEM7F #### Testing performed at [address] [address] MCH (RBC) [Entitic mass] 33.1 pg Normal 26.0-35.0 [facility] Comment on above: Performed By: #### BRET Ricks SRBC, CHEM7F #### Testing performed at [address] [address] MCHC (RBC) [Mass/Vol] 33.4 g/dL Normal 27.0-37.0 [facility] Comment on above: Performed By: #### Millicent TRIMBLE ACBC, CHEM7F #### Testing performed at [address] [address] MCV (RBC) [Entitic vol] 99.0 fL Normal 80.0-100.0 [facility] Comment on above: Performed By: #### Millicent TRIMBLE ACBC, CHEM7F #### Testing performed at [address] [address] Platelet mean volume (Bld) [Entitic vol] 8.8 fL Normal 7.4-11.0 [facility] Comment on above: Performed By: #### Millicent TRIMBLE ACBC, CHEM7F #### Testing performed at [address] [place] [address] Platelets (Bld) [#/Vol] 223 10*3/uL Normal 130.0-400.0 [facility] Comment on above: Performed By: #### E , ACBC, CHEM7F #### Testing performed at [address] [address] RBC (Bld) [#/Vol] 4.17 10*6/uL Normal 4.0-6.1 [facility] Comment on above: Performed By: #### E SR, ACBC, CHEM7F #### Testing performed at [address] [address] WBC (Bld) [#/Vol] 9.3 10*3/uL Normal 3.6-11.0 [facility] Comment on above: Performed By: #### E SR, ACBC, CHEM7F #### Testing performed at [address] [address] CBC, EDIF, PLATELETon 2019 ABSOLUTE BASOPHIL COUNT 0.1 10*3/uL 0 - 0.2 10*3/uL [facility] Basophils/100 WBC (Bld) 0.8 % 0 - 2 % A [employer] Differential cell count method Nom (Bld) AUTO DIFF % [facility] Eosinophils (Bld) [#/Vol] 0.00 10*3/uL 0 - 0.7 10*3/uL [facility] Eosinophils/100 WBC (Bld) 0.4 % 0 - 11 % [facility] Erythrocyte distribution width (RBC) [Ratio] 13.0 % 11.5 - 14.5 % [facility] Hematocrit (Bld) [Volume fraction] 41.3 % Low 42 - 52 % [facility] Hemoglobin (Bld) [Mass/Vol] 13.8 g/dL Low [employer] Interpretation and review of laboratory results Abnormal [facility] Lymphocytes (Bld) [#/Vol] 2.10 10*3/uL 1.2 - 3.4 10*3/uL [facility] Lymphocytes/100 WBC (Bld) 22.5 % 20 - 55 % [employer] MCH (RBC) [Entitic mass] 33.1 pg 26 - 35 PG [facility] MCHC (RBC) [Mass/Vol] 33.4 g/dL [employer] MCV (RBC) [Entitic vol] 99.0 fL [facility] [employer] Monocytes (Bld) [#/Vol] 0.6 10*3/uL 0 - 0.7 10*3/uL [facility] Monocytes/100 WBC (Bld) 6.7 % 0 - 10 % A [facility] Neutrophils (Bld) [#/Vol] 6.5 10*3/uL 1.4 - 6.5 10*3/uL [employer] Neutrophils/100 WBC (Bld) 69.6 % 37 - 75 % [employer] Platelet mean volume (Bld) [Entitic vol] 8.8 fL [employer] Platelets (Bld) [#/Vol] 223 10*3/uL 130 - 400 10*3/uL [employer] RBC (Bld) [#/Vol] 4.17 10*6/uL 4 - 6.1 10*6/uL [facility] [employer] WBC (Bld) [#/Vol] 9.3 10*3/uL 3.6 - 11 10*3/uL [employer] CHEM 7 FASTINGon 01-01-2020 Creatinine [Mass/Vol] 0.73 mg/dL Normal 0.66-1.25 [facility] Comment on above: Performed By: #### E , ACBC, CHEM7F #### [place] [address] EST. GFR, >60 Normal [facility] Comment on above: Performed By: #### E SR, ACBC, CHEM7F #### [place] [address] EST. GFR,Non >60 Normal [facility] Comment on above: Performed By: #### E , ACBC, CHEM7F #### [place] [address] GFR/1.73 sq M predicted among non-blacks MDRD (S/P/Bld) [Vol rate/Area] Average GFR for 60-69 years old = 85. Normal [facility] Comment on above: Result Comment: Impress Associate dayanna Kidney disease, GFR = <60. Kidney failure, GFR = <15. The GFR estimate is not adjusted for extreme body surface area or acute process, nor has it been validated for women or ethnic groups other than and . Performed By: #### LAWSON Ricks SR CHEM7F #### Testing performed at [address] [address] Urea nitrogen [Mass/Vol] 10 mg/dL Normal 7-20 [facility] Comment on above: Performed By: #### LAWSON Ricks SR CHEM7F #### Testing performed at [address] [address] Chloride [Moles/Vol] 106 mmol/L Normal 98-107 [facility] Comment on above: Performed By: #### LAWSON Ricks SR CHEM7F #### Testing performed at [address] [address] CO2 [Moles/Vol] 23 mmol/L Normal 22-30 [facility] Comment on above: Performed By: #### LAWSON Ricks SR CHEM7F #### Testing performed at [address] [address] Glucose [Mass/Vol] 97 mg/dL Normal 70-100 [facility] Comment on above: Result Comment: NORMAL <100 mg/dL PREDIABETES 101-126 mg/dL DIABETES 126 mg/dL or higher Performed By: #### LAWSON Ricks SR, CHEM7F #### Testing performed at [address] [address] Potassium [Moles/Vol] 3.7 mmol/L Normal 3.5-5.1 [facility] Comment on above: Performed By: #### LAWSON Ricks SR, CHEM7F #### Testing performed at [address] [address] Sodium [Moles/Vol] 136 mmol/L Normal 136-145 [facility] Comment on above: Performed By: #### LAWSON Ricks SR, CHEM7F #### Testing performed at [address] [address] CHEM 7 (LYTES,BUN,CREA,GLUC) on 01-01-2020 Chloride [Moles/Vol] 106 mmol/L [facility] CO2 [Moles/Vol] 23 mmol/L [facility] Creatinine [Mass/Vol] 0.73 mg/dL [facility] GFR/1.73 sq M predicted among blacks MDRD (S/P/Bld) [Vol rate/Area] mL/min/{1.73_m2} ml/min/1.73 sq.m [facility] GFR/1.73 sq M predicted among non-blacks MDRD (S/P/Bld) [Vol rate/Area] Average GFR for 60-69 years old = 85. [facility] Comment on above: Chronic Kidney disea se, GFR = <60. Kidney failure, GFR = <15. The GFR estimate is not adjusted for extreme body surface area or acute process, nor has it been validated for women or ethnic groups other than and . GFR/1.73 sq M predicted among non-blacks MDRD (S/P/Bld) [Vol rate/Area] mL/min/{1.73_m2} ml/min/1.73 sq.m [facility] Glucose post fast [Mass/Vol] 97 mg/dL [facility] Comment on above: NORMAL <100 mg/dL PREDIABETES 101-126 mg/dL DIABETES 126 mg/dL or higher Potassium [Moles/Vol] 3.7 mmol/L [facility] Sodium [Moles/Vol] 136 mmol/L [facility] Urea nitrogen [Mass/Vol] 10 mg/dL [facility] ESRon 01-01-2020 ESR (Bld) [Velocity] 6 mm/h Normal 0-20 [facility] Comment on above: Performed By: #### E SR, ACBC, CHEM7F #### Testing performed at [facility] [address] [place] [address] SEDIMENTATION RATE, AUTOMATE Don 01-01-2020 ESR (Bld) [Velocity] 6 mm/h [facility] XR FOOT RIGHT 3 VIEWSon 12-04 XR [...] midfoot without any acute osseous abnormality. Normal [facility] IMPRESSION: Osteopen ia. Pes planus. Mild dorsal soft tissue swelling of the midfoot without any acute osseous abnormality. [facility] EXAM: XR FOOT RIGHT 3 VIEWS INDICATION: swelling COMPARISON: None. TECHNIQUE: AP, lateral, oblique views of the right foot. FINDINGS: The bones are osteopenic. The tarsometatarsal alignment is preserved. There is no acute fracture. Pes planus. Tiny enthesophyte is seen along the plantar fascial attachment of the calcaneus. There is mild dorsal soft tissue swelling of the midfoot. [facility] User, Interfaces 01/01/2020 1:01 PM EDT EXAM: [...] the midfoot without any acute osseous abnormality. [facility] CBC WITH AUTO DIFFERENTIALon 12-27-2019 Basophils (Bld) [#/Vol] 0.09 10*3/uL [facility] Basophils/100 WBC (Bld) 0.9 % [facility] Eosinophils (Bld) [#/Vol] 0.17 10*3/uL [facility] Eosinophils/100 WBC (Bld) 1.7 % [facility] Erythrocyte distribution width (RBC) [Entitic vol] 12.2 % 11.6 - 14.8 % [facility] Hematocrit (Bld) [Volume fraction] 45.2 % 41 - 53 % [facility] Hemoglobin (Bld) [Mass/Vol] 14.6 g/dL 13.5 - 17.5 g/dL [facility] Immature granulocytes (Bld) [#/Vol] 0.09 10*3/uL [facility] Immature granulocytes/100 WBC (Bld) 0.90 % [facility] Comment on above: The IG parameter is the percentage of metamyelocytes, myelocytes and promyelocytes. An immature granulocyte count (IG) of 1% or more suggests the possibility of infection, an IG count of 3% is very likely related to an infection. Interpretation and review of laboratory results Abnormal [facility] Lymphocytes (Bld) [#/Vol] 3.09 10*3/uL [facility] Lymphocytes/100 WBC (Bld) 30.4 % [facility] MCH (RBC) [Entitic mass] 32.5 pg 26 - 34 pg [facility] MCHC (RBC) [Mass/Vol] 32.3 g/dL 31 - 3 7 g/dL [facility] MCV (RBC) [Entitic vol] 100.7 fL High 80 - 100 fL [facility] Monocytes (Bld) [#/Vol] 0.64 10*3/uL [facility] Monocytes/100 WBC (Bld) 6.3 % [facility] Neutrophils (Bld) [#/Vol] 6.10 10*3/uL [facility] Neutrophils/100 WBC (Bld) 59.8 % [facility] Nucleated RBC (Bld) [#/Vol] 0.00 10*3/uL [facility] Nucleated RBC/100 WBC (Bld) [Ratio] 0.0 % [facility] Platelet mean volume (Bld) [Entitic vol] 10.4 fL 9.4 - 12.4 fL [facility] Platelets (Bld) [#/Vol] 255 10*3/uL [facility] RBC (Bld) [#/Vol] 4.49 10*6/uL [facility]alth WBC (Bld) [#/Vol] 10.18 10*3/uL [facility] Chem 7on 12-27-2019 Anion gap [Moles/Vol] 11 mmol/L 10 - 2 0 mmol/L [facility] Chloride [Moles/Vol] 112 mmol/L High 98 - 10 8 mmol/L [facility] Creatinine [Mass/Vol] 0.86 mg/dL 0.80 - 1.30 [facility] GFR/1.73 sq M predicted among non-blacks MDRD (S/P/Bld) [Vol rate/Area] The eGFR should be used for monitoring renal function only and not for medication dosing. [facility] GFR/1.73 sq M.predicted CKD-EPI (S/P/Bld) [Vol rate/Area] 91 >=60 mL/min/1.73 m2 [facility] GFR/1.73 sq M.predicted CKD-EPI (S/P/Bld) [Vol rate/Area] 105 >=60 mL/min/1.73 m2 [facility] Glucose [Mass/Vol] 94 mg/dL 65 - 99 mg/dL [facility] HCO3 [Moles/Vol] 25 mmol/L 21 - 32 mmol/L [facility] Interpretation and review of laboratory results Abnormal [facility] Potassium [Moles/Vol] 3.9 mmol/L 3.5 - 5.1 mmol/L [facility] Sodium [Moles/Vol] 144 mmol/L 135 - 145 mmol/L [facility] Urea nitrogen [Mass/Vol] 14 mg/dL 8 - 25 mg/dL [facility] Urea nitrogen/Creatinine [Mass ratio] 16.3 mg/mg [facility] NT Pro BNPon 12-27-2019 Interpretation and review of laboratory results Normal [facility] Natriuretic peptide.B prohormone N-Terminal [Mass/Vol] 71 pg/mL 0 - 300 pg/mL [facility] Pride Study Cut-offs Rule In: < /= 50 Years >450 pg/mL 51 Years - 75 Years >900 pg/mL 76 Years - 99 Years >1800 pg/mL Rule Out: All patients <300 pg/mL [facility] Otheron 12-27-2019 Extra Tube Hold for add-ons. [facility] Comment on above: Auto resulted. TROPONINon 12-27-2019 Troponin I.cardiac [Mass/Vol] ng/mL <=45 ng/L [facility] Troponin I.cardiac [Mass/Vol] Normal [facility] XR CHEST PA/APon 12-27-2019 XR CHEST [...] on FriDecember 27, 2019 9:53:47 AM EDT Normal [facility] Comment on above: Order Comment: Injur y/Trauma or Illness?:Illness/Other How long have you had these symptoms (acute/chronic)?:Acute Reason for exam?:lower extremity edema History of cancer?:u Surgeries, chemotherapy, or radiation?:u Type of Exam?:Initial Additional signs and symptoms?:hx htn, smoker XR Chest 1 Viewon 12-27-2019 1. Changes consisten t with COPD. 2. No focal infiltrates. Workstation ID: [id number] [facility] EXAMINATION: XR CHES T PA/AP 12/27/2019 [...] focal infiltrates. EKG leads overlie the chest. [facility] Interface, Rad In Fu ji Speechq [...] 2. No focal infiltrates. Workstation ID: [id number] [facility] CNOVon 06-09-2019 CNOV Office Visit (YULIANA ) DENNY GOMEZ ([id number]) 1955 M Date Time Provider Department 06/09/19 [...] Age: [age] year old Sex: male MRN/E# [id number] Last Office Visit: 05/18/2019 Chief Complaint: Patient presents with: Established Patient: SDH SUBJECTIVE: Mr. Gomez presents to the office today for a hospital follow up for SDH. He was seen at [facility] on 01/25/2019 after a fall up two [...] in upper and lower extremities. Coordination Right: Xmynpw-cj-qyjw normal. Qtgo-ae-dwwt normal. Left: Dfunjd-ce-vgil normal. Pryt-zp-kfqh normal. Gait Normal casual, toe, heel and [...] Weston Crespo MD Referring Provider: MALU ROWE [[id number]] Allergies As of Date: 06/09/2019 Noted Allergy [...] Status:Closed by WESTON CRESPO MD on 06/09/[address] [facility] [address] BRAIN WO IVCONon 06-09-[address] BRAIN WO IVCON * * *Final [...] corresponding to area of prior parenchymal contusion. Supervisor Furnace Room: [facility] Transcribe Date/Time: Jun 10 2019 10:38A Dictated by : HAJA LOZADA MD This examination was interpreted and the report reviewed and electronically signed by: HAJA LOZADA MD on Jun 10 2019 10:44AM [facility] Normal [facility] PROGRESSon 06-09-2019 PROGRESS HNO ID: [id number] Author: Weston Crespo Service: ? Author Type: Physician Type: Progress Notes Filed: 06/09/2019 11:22 AM Note Text: NEUROSURGERY FOLLOW UP OFFICE NOTE Weston Crespo MD Date of visit: June 09, 2019 Patient Name: Mr.Jack Gomez Date of : 1955 Current Age: [age] year old Sex: male MRN/E# [id number] Last Office Visit: 05/18/2019 Chief Complaint: Patient presents with: Established Patient: SDH SUBJECTIVE: Mr. Gomez presents to the office today for a hospital follow up for SDH. He was seen at [facility] on 01/25/2019 after a fall up two [...] in upper and lower extremities. Coordination Right: Lsxjbo-gk-ljej normal. Olwx-bs-icbd normal. Left: Dlukcm-gx-udqs normal. Ddjx-uv-snsw normal. Gait Normal casual, toe, heel and [...] problems with his memory. Weston Crespo MD [facility] CNOVon 02-03-2019 OV Office Visit (YULIANA ) DENNY GOMEZ ([id number]) 1955 M Date Time Provider Department 02/03/19 [...] Age: [age] year old Sex: male MRN/E# [id number] Last Office Visit: 02/01/2019 Chief Complaint: Patient presents with: Hospital Follow Up SUBJECTIVE: Mr. Gomez presents to the office today for a hospital follow up for SDH. He was seen at [facility] on 01/25/2019 after a fall up two [...] and proprioception in all four extremities. Coordination Gmagnz-qc-dshr, rapid alternating movements and fcea-sv-uvlf normal bilaterally without dysmetria. Gait Normal casual, [...] Weston Crespo MD Referring Provider: MALU ROWE [[id number]] Allergies As of Date: 02/03/2019 Noted Allergy Reaction SEASONAL ALLERGIES 2016 16 - Unknown Date Reviewed: 02/03/2019 Reviewed by: Weston Crespo - Fully Assessed Reason for Visit: Hospital Follow Up [177] Primary Visit Diagnosis:Subdural hematoma (HCC) [S06.5X9A] Order(s):CONSULT TO [facility] [3297] Order #: [id number]: 1 Prescriptions as of 02/03/2019 Sig: HYDROCODONE [...] Status:Closed by WESTON CRESPO MD on 02/03/19 [facility] PROGRESSon 02-03-2019 PROGRESS HNO ID: [id number] Author: Weston Crespo Service: ? Author Type: Physician Type: Progress Notes Filed: 02/03/2019 9:05 AM Note Text: NEUROSURGERY FOLLOW UP OFFICE NOTE Weston Crespo MD Date of visit: February 03, 2019 Patient Name: Mr.Jack Gomez Date of : 1955 Current Age: [age] year old Sex: male MRN/E# [id number] Last Office Visit: 02/01/2019 Chief Complaint: Patient presents with: Hospital Follow Up SUBJECTIVE: Mr. Gomez presents to the office today for a hospital follow up for SDH. He was seen at [facility] on 01/25/2019 after a fall up two [...] and proprioception in all four extremities. Coordination Gyyxhb-qv-jhkj, rapid alternating movements and yoni-qu-mdzl normal bilaterally without dysmetria. Gait Normal casual, [...] arise in the future. 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 No SOCIAL: Living Arrangement: Home Lives With: Spouse Financial Resources: N/A Primary Contact: Extended Emergency Contact Information Primary Emergency Contact: Betsey Gomez Address: [address] [place] [address] OF [facility] Mobile Relation: Spouse Secondary Emergency Contact: Dominick [...] 0 I feel financially burdened by my duy-vq-zfftql expenses for my prescription medication: Disagree completely [...] Home Pt's Betsey answered assessment questions. 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 Pharmacy is [facility] in [place]. PT/OT olu. 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 After 5pm and on Weekends and Holidays, please page [phone]. CATEGORY: Level 3 SERVICE DATE: 01/25/2019 SERVICE [...] questions or concerns Mon-Fri 6a-5p please page [phone]. After 5pm and on Weekends and Holidays, please page [phone] if in ICU or [phone] if on RNF. [facility] ED NOTEon 01-26-2019 ED NOTE HNO ID: [id number] Author: Kelly LearyRn) NADYA Quezada Service: Nursing Author Type: Registered Nurse Type: ED Notes Filed: 01/25/2019 11:14 PM Note Text: This nurse assumed care of pt, report received from Nicki COVINGTON [facility] NURSING PROGon 01-26-2019 NURSING PROG HNO ID: [id number] Author: Jesu LearyRn) NADYA Frausto Service: Nursing Author Type: Registered Nurse Type: Nursing Progress Note Filed: 01/26/2019 5:09 PM Note Text: Nursing Progress Note Patient Name: Denny Gomez Patient Location: [place] [address] [address]* Daily Note:pt Transferred via wheelchair and discharged home. This note was completed by: Jesu Frausto RN [facility] NURSING PROG HNO ID: [id number] Author: Jesu (Rn) NADYA Frausto Service: Nursing Author Type: Registered Nurse Type: Nursing Progress Note Filed: 01/26/2019 2:29 PM Note Text: Nursing Progress Note Patient Name: Denny Gomez Patient Location: [place] [address]* Daily Note:pt walked around room was very steady on feet no change in vital signs. Will notify resident prior to discharging home This note was completed by: Jesu Frausto RN [facility] PLAN OF CAREon 01-26-2019 PLAN OF CARE HNO ID: [id number] Author: Enid Wang (Roofing Foreman) Service: Pharmacy Author Type: ? Type: Plan of Care Filed: 01/26/2019 2:33 PM Note Text: LOAD TALLIER BEDSIDE DELIVERY SURVEY 1. Patient to use [facility] Bedside Delivery - NO prefer own pharmacy Insurance Information as follows: 2. Insurance card on file - YES 3. Credit card for payment - N/A Patient declined per CM Assessment on 01/26 Enid Wang (Roofing Foreman) Extension [id number], or [phone] [facility] PROGRESSon 01-26-2019 PROGRESS HNO ID: [id number] Author: Jr Aguirre Service: General Surgery Author [...] 0659 01/26/19 07 - 01/27/19 0659 Shift [id number] 1733-3554 4560-9568 24 Hour Total 7140-5275 1702-8333 3578-5646 24 Hour Total INTAKE IV 718 718 [...] questions or concerns Mon-Fri 6a-5p please page [phone]. After 5pm and on Weekends and Holidays, please page [phone]. SIGNATURE: Eddie Duke DO PATIENT NAME: Denny [...] Aguirre MD Date: 01/26/2019 Time: 12:54 PM [facility] PROGRESS HNO ID: [id number] Author: Raquel (Roldan Schmidt Service: Trauma Author [...] Air IANDO: Date 01/25/19699 - 01/26/1965801/26/19699 - 01/27/19 0659 Shift [id number] 3345-4870 6836-0417 24 Hour Total 0657-9679 0159-3254 8492-8806 24 Hour Total INTAKE IV 718 718 [...] questions or concerns Mon-Fri 6a-5p please page [phone]. After 5pm and on Weekends and Holidays, please page [phone] if in ICU or [phone] if on RNF. [facility] ED NOTEon 01-25-2019 ED NOTE HNO ID: [id number] Author: Randee Ortega) NADYA Roman Service: Emergency Medicine Author Type: Registered Nurse Type: ED Notes Filed: 01/25/2019 8:37 PM Note Text: Patient returned to the Emergency Department. [facility] ED NOTE HNO ID: [id number] Author: Randee Ortega) NADYA Roman Service: Emergency Medicine Author Type: Registered Nurse Type: ED Notes Filed: 01/25/2019 8:37 PM Note Text: Patient transported to [facility] ED NOTE HNO ID: [id number] Author: Randee Roman RN Service: Emergency Medicine Author Type: Registered Nurse Type: ED Notes Filed: 01/25/2019 7:08 PM Note Text: Exam by [facility] ED NOTE HNO ID: [id number] Author: Tor Wong (Medic) Service: ? Author Type: Print Line Operator and Accounting System Expert Type: ED Notes Filed: 01/25/2019 6:41 PM Note Text: Bed: 08-ED Expected date: 01/25/19 Expected time: 4:35 PM Means of arrival: Other EMS Fire Comments: [place] transfer - trauma consult [facility] ED PROV NOTEon 01-25-2019 ED PROV NOTE HNO ID: [id number] Author: Benji Wyman DO Service: Emergency Medicine [...] PM ED Provider Note Patient Name: Denny Gomez SERVICE DATE: 01/25/19 History Patient presents with: Fall: per pt he fell 2 days ago onto concrete hitting head states -loc went to work today AND had blurry vision AND coordination was "off" pt aANDox3 speech clear c/o parmar sent from [facility] for neuo consult d/t head bleed 63-year-old male presenting as a transfer from [facility] for trauma evaluation. Patient states that 2 days ago he fell on the concrete hitting his head. Denies any loss consciousness at that time. Patient states he felt fine afterwards until today when he developed double vision and difficulty with coordination and balance. Pt was seen at [facility] where he had CT scan of [...] is a 63 y/o male sent to [facility] as trauma transfer from [facility]. History and physical performed as described [...] Resident 01/26/19 0107 Kelly Wagner MD 01/26/19 1713 Normal [facility] ED PROV NOTE HNO ID: [id number] Author: Kelly Wagner MD Service: Emergency Medicine [...] or prevent deterioration of the following condition(s): ABALONE PROCESSOR impairment, which the patient had and/or has [...] PM Kelly Wagner MD 01/25/19 2331 Normal [facility] HISTORY PHYSICALon 9 HISTORY PHYSICAL HNO ID: [id number] Author: Gladis Garcia Service: General Surgery Author [...] questions or concerns Mon-Fri 6a-5p please page [phone]. After 5pm and on Weekends and Holidays, please page [phone] if in ICU or [phone] if on RNF. CATEGORY: Level 3 SERVICE [...] questions or concerns Mon-Fri 6a-5p please page [phone]. After 5pm and on Weekends and Holidays, please page [phone] if in ICU or [phone] if on RNF. Normal [facility] No Panel Information [facility] Vital Signs Date Time Vital Sign Value Performing Clinician Facility 05-20-2025 10:42-0400 Body height 172.[address] Malu Rowe MD Work Phone: [facility] 05-20-2025 10:42-0400 Body mass index (BMI) [Ratio] 22.9 kg/m2 Dr. Malu Rowe MD Work Phone: [facility] 05-20-2025 10:42-0400 Body temperature 98.3 [degF] Dr. Malu Rowe MD Work Phone: [facility] 05-20-2025 10:42-0400 Body weight 68.[address] Malu Rowe MD Work Phone: 0(722)620-622896 [place] [address] 05-20-2025 10:42-0400 Diastolic blood pressure 72 mm[Hg] Dr. Malu Rowe MD Work Phone: 7(708)199-467996 [place] [address] 05-20-2025 10:42-0400 Heart rate 64 /min Dr. Malu Rowe MD Work Phone: 1(819)210-366996 [place] [address] 05-20-2025 10:42-0400 Respiratory rate 18 /min Dr. Malu Rowe MD Work Phone: 4(622)532-580296 [place] [address] 05-20-2025 10:42-0400 SaO2% (BldA) [Mass fraction] 97 % Dr. Malu Rowe MD Work Phone: 1(620)400-967096 [place] [address] 05-20-2025 10:42-0400 Systolic blood pressure 118 mm[Hg] Dr. Malu Rowe MD Work Phone: 3(740)837-358996 [place] [address] 03-29-2025 14:41-0400 Body height 172.[address] Malu Rowe MD Work Phone: 8(907)523-822796 [place] [address] 03-29-2025 14:41-0400 Body mass index (BMI) [Ratio] 22.5 kg/m2 Dr. Malu Rowe MD Work Phone: 6(242)899-338796 [place] [address] 03-29-2025 14:41-0400 Body weight 67.[address] Malu Rowe MD Work Phone: 7(477)669-078096 [place] [address] 03-29-2025 14:41-0400 Diastolic blood pressure 79 mm[Hg] Dr. Malu Rowe MD Work Phone: 0(310)822-500196 [place] [address] 03-29-2025 14:41-0400 Heart rate 60 /min Dr. Malu Rowe MD Work Phone: 4(659)815-421396 [place] [address] 03-29-2025 14:41-0400 Respiratory rate 16 /min Dr. Malu Rowe MD Work Phone: 5(104)679-610796 [place] [address] 03-29-2025 14:41-0400 Systolic blood pressure 120 mm[Hg] Dr. Malu Rowe MD Work Phone: 6(176)596-783196 [place] [address] 03-07-2025 14:45-0400 Body temperature 98.3 [degF] Dr. Malu Rowe MD Work Phone: 1(866)581-274096 [place] [address] 03-07-2025 14:45-0400 Diastolic blood pressure 79 mm[Hg] Dr. Malu Rowe MD Work Phone: 3(645)488-418996 [place] [address] 03-07-2025 14:45-0400 Heart rate 60 /min Dr. Malu Rowe MD Work Phone: 1(735)537-299296 [place] [address] 03-07-2025 14:45-0400 Respiratory rate 18 /min Dr. Malu Rowe MD Work Phone: 6(935)065-557996 [place] [address] 03-07-2025 14:45-0400 SaO2% (BldA) [Mass fraction] 100 % Dr. Malu Rowe MD Work Phone: 5(602)272-827796 [place] [address] 03-07-2025 14:45-0400 Systolic blood pressure 156 mm[Hg] Dr. Malu Rowe MD Work Phone: 4(050)418-179096 [place] [address] 03-07-2025 12:00-0400 Body height 172.[address] Malu Rowe MD Work Phone: 4(165)658-981196 [place] [address] 03-07-2025 12:00-0400 Body mass index (BMI) [Ratio] 22.7 kg/m2 Dr. Malu Rowe MD Work Phone: 3(690)596-079996 [place] [address] 03-07-2025 12:00-0400 Body weight 67.[address] Maul Rowe MD Work Phone: 0(698)245-789296 [place] [address] 02-11-2025 09:03-0400 Body height 172.7 cm Moises Pendleton MD Work Phone: [facility] 02-11-2025 09:03-0400 Body mass index (BMI) [Ratio] 23.33 kg/m2 Moises Pendleton MD Work Phone: [facility] 02-11-2025 09:03-0400 Body temperature 98.6 [degF] Moises Pendleton MD Work Phone: [facility] 02-11-2025 09:03-0400 Body weight 69.6 kg Moises Pendleton MD Work Phone: [facility] 02-11-2025 09:03-0400 Diastolic blood pressure 73 mm[Hg] Moises Pendleton MD Work Phone: [facility] 02-11-2025 09:03-0400 Heart rate 66 /min Moises Pendleton MD Work Phone: [facility] 02-11-2025 09:03-0400 Respiratory rate 18 /min Moises Pendleton MD Work Phone: [facility] 02-11-2025 09:03-0400 SaO2% (BldA) [Mass fraction] 99 % Moises Pendleton MD Work Phone: [facility] 02-11-2025 09:03-0400 Systolic blood pressure 133 mm[Hg] Moises Pendleton MD Work Phone: [facility] 10-27-2024 14:16-0400 Body mass index (BMI) [Ratio] 23.33 kg/m2 Malu Rowe MD Work Phone: [facility] 10-27-2024 14:16-0400 Body weight 69.6 kg Malu Rowe MD Work Phone: [facility] 10-27-2024 14:16-0400 Diastolic blood pressure 73 mm[Hg] Malu Rowe MD Work Phone: [facility] 10-27-2024 14:16-0400 Heart rate 67 /min Malu Rowe MD Work Phone: [facility] 10-27-2024 14:16-0400 SaO2% (BldA) [Mass fraction] 98 % Malu Rowe MD Work Phone: [facility] 10-27-2024 14:16-0400 Systolic blood pressure 113 mm[Hg] Malu Rowe MD Work Phone: [facility] 09-27-2024 19:16-0500 Body mass index (BMI) [Ratio] 23.63 kg/m2 Art Donovan MD Work Phone: [facility] 09-27-2024 19:16-0500 Body temperature 98.49 [degF] Art Donovan MD Work Phone: [facility] 09-27-2024 19:16-0500 Body weight 70.5 kg Art Donovan MD Work Phone: [facility] 09-27-2024 19:16-0500 Diastolic blood pressure 62 mm[Hg] Art Donovan MD Work Phone: [facility] 09-27-2024 19:16-0500 Heart rate 67 /min Art Donovan MD Work Phone: [facility] 09-27-2024 19:16-0500 Systolic blood pressure 116 mm[Hg] Art Donovan MD Work Phone: [facility] 07-19-2024 15:32-0500 Diastolic blood pressure 63 mm[Hg] Carlos A Kennedy MD Work Phone: [facility] 07-19-2024 15:32-0500 Heart rate 74 /min Carlos A Kennedy MD Work Phone: [facility] 07-19-2024 15:32-0500 Systolic blood pressure 123 mm[Hg] Carlos A Kennedy MD Work Phone: [facility] 07-07-2024 12:57-0500 Body mass index (BMI) [Ratio] 23.81 kg/m2 Elias Rider MD Work Phone: [facility] 07-07-2024 12:57-0500 Body weight 70.76 kg Elias Rider MD Work Phone: [facility] 07-07-2024 12:57-0500 Diastolic blood pressure 55 mm[Hg] Elias Rider MD Work Phone: [facility] 07-07-2024 12:57-0500 Heart rate 65 /min Elias Rider MD Work Phone: [facility] 07-07-2024 12:57-0500 Systolic blood pressure 105 mm[Hg] Elias Rider MD Work Phone: [facility] 05-12-2024 10:42-0400 Body mass index (BMI) [Ratio] 24.03 kg/m2 Vidal Christie SUPERVISOR BLOOD DONOR RECRUITERS.DEVICE REPAIR TECHNICIAN Work Phone: [facility] 05-12-2024 10:42-0400 Body temperature 97.59 [degF] Vidal Christie APRN.DEVICE REPAIR TECHNICIAN Work Phone: [facility] 05-12-2024 10:42-0400 Body weight 71.7 kg Vidal Christie SUPERVISOR BLOOD DONOR RECRUITERS.DEVICE REPAIR TECHNICIAN Work Phone: [facility] 05-12-2024 10:42-0400 Diastolic blood pressure 68 mm[Hg] Vidal Christie SUPERVISOR BLOOD DONOR RECRUITERS.DEVICE REPAIR TECHNICIAN Work Phone: [facility] 05-12-2024 10:42-0400 Heart rate 71 /min Vidal Christie APRN.DEVICE REPAIR TECHNICIAN Work Phone: [facility] 05-12-2024 10:42-0400 Respiratory rate 18 /min Vidal Christie APRN.DEVICE REPAIR TECHNICIAN Work Phone: [facility] 05-12-2024 10:42-0400 SaO2% (BldA) [Mass fraction] 99 % Vidal Christie SUPERVISOR B[employer] RECRUITERS.DEVICE REPAIR TECHNICIAN Work Phone: [facility] 05-12-2024 10:42-0400 Systolic blood pressure 120 mm[Hg] Vidal Christie APRN.DEVICE REPAIR TECHNICIAN Work Phone: [facility] 04-30-2024 11:55-0400 Body height 172.7 cm Christine Greene MD Work Phone: [facility] 04-30-2024 11:55-0400 Body mass index (BMI) [Ratio] 23.54 kg/m2 Christine Greene MD Work Phone: [facility] 04-30-2024 11:55-0400 Body weight 70.22 kg Christine Greene MD Work Phone: [facility] 04-30-2024 11:55-0400 Diastolic blood pressure 74 mm[Hg] Christine Greene MD Work Phone: [facility] 04-30-2024 11:55-0400 Heart rate 80 /min Christine Greene MD Work Phone: [facility] 04-30-2024 11:55-0400 Respiratory rate 20 /min Christine Greene MD Work Phone: [facility] 04-30-2024 11:55-0400 SaO2% (BldA) [Mass fraction] 96 % Christine Greene MD Work Phone: [facility] 04-30-2024 11:55-0400 Systolic blood pressure 120 mm[Hg] Christine Greene MD Work Phone: [facility] 04-29-2024 10:50-0400 Body mass index (BMI) [Ratio] 23.26 kg/m2 Kesha Boone SUPERVISOR BLOOD DONOR RECRUITERS.ABALONE PROCESSOR Work Phone: [facility] 04-29-2024 10:50-0400 Body weight 69.4 kg Kesha Boone SUPERVISOR BLOOD DONOR RECRUITERS.ABALONE PROCESSOR Work Phone: [facility] 04-29-2024 10:50-0400 Diastolic blood pressure 64 mm[Hg] Kesha Boone SUPERVISOR BLOOD DONOR RECRUITERS.ABALONE PROCESSOR Work Phone: [facility] 04-29-2024 10:50-0400 Heart rate 74 /min Kesha Boone SUPERVISOR BLOOD DONOR RECRUITERS.ABALONE PROCESSOR Work Phone: [facility] 04-29-2024 10:50-0400 Respiratory rate 16 /min Kesha Boone SUPERVISOR BLOOD DONOR RECRUITERS.ABALONE PROCESSOR Work Phone: [facility] 04-29-2024 10:50-0400 Systolic blood pressure 100 mm[Hg] Kesha Boone APRN.ABALONE PROCESSOR Work Phone: [facility] 11-13-2023 10:07-0400 Body temperature 97.3 [degF] Treatment Wstr Work Phone: [facility] 11-13-2023 10:07-0400 Diastolic blood pressure 70 mm[Hg] Treatment Wstr Work Phone: [facility] 11-13-2023 10:07-0400 Heart rate 68 /min Treatment Wstr Work Phone: [facility] 11-13-2023 10:07-0400 SaO2% (BldA) [Mass fraction] 98 % Treatment Wstr Work Phone: [facility] 11-13-2023 10:07-0400 Systolic blood pressure 134 mm[Hg] Treatment Wstr Work Phone: [facility] 10-27-2023 11:09-0400 Body height 172.7 cm Malu Rowe MD Work Phone: [facility] 10-27-2023 11:09-0400 Body mass index (BMI) [Ratio] 23.42 kg/m2 Malu Rowe MD Work Phone: [facility] 10-27-2023 11:09-0400 Body weight 69.85 kg Malu Rowe MD Work Phone: [facility] 10-27-2023 11:09-0400 Diastolic blood pressure 60 mm[Hg] Malu Rowe MD Work Phone: [facility] 10-27-2023 11:09-0400 Heart rate 60 /min Malu Rowe MD Work Phone: [facility] 10-27-2023 11:09-0400 Systolic blood pressure 100 mm[Hg] Malu Rowe MD Work Phone: [facility] 07-11-2023 10:44-0500 Body mass index (BMI) [Ratio] 23.34 kg/m2 Frank Cano DEVICE REPAIR TECHNICIAN Work Phone: [facility] 07-11-2023 10:44-0500 Body weight 69.63 kg Frank Cano DEVICE REPAIR TECHNICIAN Work Phone: [facility] 07-11-2023 10:44-0500 Diastolic blood pressure 74 mm[Hg] Frank Cano DEVICE REPAIR TECHNICIAN Work Phone: [facility] 07-11-2023 10:44-0500 Heart rate 69 /min Frank Cano DEVICE REPAIR TECHNICIAN Work Phone: [facility] 07-11-2023 10:44-0500 Systolic blood pressure 111 mm[Hg] Frank Cano DEVICE REPAIR TECHNICIAN Work Phone: [facility] 04-25-2023 10:38-0400 Body weight 69.85 kg Kesha Boone SUPERVISOR BLOOD DONOR RECRUITERS.ABALONE PROCESSOR Work Phone: [facility] 04-25-2023 10:38-0400 Diastolic blood pressure 66 mm[Hg] Kesha Boone SUPERVISOR BLOOD DONOR RECRUITERS.ABALONE PROCESSOR Work Phone: [facility] 04-25-2023 10:38-0400 Heart rate 64 /min Kesha Boone SUPERVISOR BLOOD DONOR RECRUITERS.ABALONE PROCESSOR Work Phone: [facility] 04-25-2023 10:38-0400 Respiratory rate 16 /min Kesha Boone SUPERVISOR BLOOD DONOR RECRUITERS.ABALONE PROCESSOR Work Phone: [facility] 04-25-2023 10:38-0400 Systolic blood pressure 118 mm[Hg] Kesha Boone SUPERVISOR BLOOD DONOR RECRUITERS.ABALONE PROCESSOR Work Phone: [facility] 03-25-2023 14:57-0400 Body weight 69.85 kg Kesha Boone SUPERVISOR BLOOD DONOR RECRUITERS.ABALONE PROCESSOR Work Phone: [facility] 03-25-2023 14:57-0400 Diastolic blood pressure 70 mm[Hg] Kesha Boone SUPERVISOR BLOOD DONOR RECRUITERS.ABALONE PROCESSOR Work Phone: [facility] 03-25-2023 14:57-0400 Heart rate 68 /min Kesha Boone SUPERVISOR BLOOD DONOR RECRUITERS.ABALONE PROCESSOR Work Phone: [facility] 03-25-2023 14:57-0400 Respiratory rate 16 /min Kesha Santoss SUPERVISOR BLOOD DONOR RECRUITERS.ABALONE PROCESSOR Work Phone: [facility] 03-25-2023 14:57-0400 SaO2% (BldA) [Mass fraction] 97 % Kesha Santoss SUPERVISOR BLOOD DONOR RECRUITERS.ABALONE PROCESSOR Work Phone: [facility] 03-25-2023 14:57-0400 Systolic blood pressure 112 mm[Hg] Kesha Boone APRN.ABALONE PROCESSOR Work Phone: [facility] 03-19-2023 13:22-0400 Body height 172.[address] Malu Rowe Work Phone: [facility] 03-19-2023 13:22-0400 Body mass index (BMI) [Ratio] 23.8 kg/m2 Dr. Malu Rowe Work Phone: [facility] 03-19-2023 13:22-0400 Body weight 71.[address] Malu Rowe Work Phone: [facility] 03-19-2023 13:22-0400 Diastolic blood pressure 68 mm[Hg] Dr. Malu Rowe Work Phone: [facility] 03-19-2023 13:22-0400 Heart rate 61 /min Dr. Malu Rowe Work Phone: [facility] 03-19-2023 13:22-0400 Respiratory rate 18 /min Dr. Malu Rowe Work Phone: [facility] 03-19-2023 13:22-0400 SaO2% (BldA) [Mass fraction] 99 % Dr. Malu Rowe Work Phone: [facility] 03-19-2023 13:22-0400 Systolic blood pressure 105 mm[Hg] Dr. Malu Rowe Work Phone: [facility] 01-21-2023 11:32-0400 Diastolic blood pressure 66 mm[Hg] Carlos A Kennedy MD Work Phone: [facility] 01-21-2023 11:32-0400 Heart rate 65 /min Carlos A Kennedy MD Work Phone: [facility] 01-21-2023 11:32-0400 Systolic blood pressure 127 mm[Hg] Carlos A Kennedy MD Work Phone: [facility] 11-04-2022 11:23-0400 Body height 172.4 cm Massiel Harrell MD Work Phone: [facility] 11-04-2022 11:23-0400 Body mass index (BMI) [Ratio] 23.92 kg/m2 Massiel Harrell MD Work Phone: [facility] 11-04-2022 11:23-0400 Body weight 71.1 kg Massiel Harrell MD Work Phone: [facility] 10-28-2022 10:43-0400 Diastolic blood pressure 70 mm[Hg] Massiel Harrell MD Work Phone: [facility] 10-28-2022 10:43-0400 Heart rate 61 /min Massiel Harrell MD Work Phone: [facility] 10-28-2022 10:43-0400 Systolic blood pressure 122 mm[Hg] Massiel Harrell MD Work Phone: [facility] 08-23-2022 07:59-0500 Body weight 73.03 kg Kseha Boone SUPERVISOR BLOOD DONOR RECRUITERS.ABALONE PROCESSOR Work Phone: [facility] 08-23-2022 07:59-0500 Diastolic blood pressure 62 mm[Hg] Kesha Boone SUPERVISOR BLOOD DONOR RECRUITERS.ABALONE PROCESSOR Work Phone: [facility] 08-23-2022 07:59-0500 Heart rate 69 /min Kesha Boone SUPERVISOR BLOOD DONOR RECRUITERS.ABALONE PROCESSOR Work Phone: [facility] 08-23-2022 07:59-0500 Respiratory rate 16 /min Kesha Boone SUPERVISOR BLOOD DONOR RECRUITERS.ABALONE PROCESSOR Work Phone: [facility] 08-23-2022 07:59-0500 SaO2% (BldA) [Mass fraction] 98 % Kesha Boone APRLuis DanielABALONE PROCESSOR Work Phone: [facility] 08-23-2022 07:59-0500 Systolic blood pressure 102 mm[Hg] Kesha Boone GOLDIE.ABALONE PROCESSOR Work Phone: [facility] 01-30-2022 13:42-0400 Body height 177.8 cm Malucarolin Rowe Work Phone: VO-Upilzxz-Pczfijx Work Phone: 01-30-2022 13:42-0400 Body mass index (BMI) [Ratio] 22.67 kg/m2 Malu Rowe Work Phone: ST-Qbbchwn-Kocrrfr Work Phone: 01-30-2022 13:42-0400 Body surface area Derived from formula 1.89 m2 Malu Sumaya Work Phone: DS-Pyaeqcs-Yudjmkz Work Phone: 01-30-2022 13:42-0400 Body weight 71.67 kg Malu Rowe Work Phone: WA-Nfrgktx-Cekkhfl Work Phone: 01-30-2022 13:42-0400 Respiratory rate 18 /min Malu Rowe Work Phone: DP-Wbfkfmq-Jkqetuv Work Phone: 12-18-2021 13:54-0400 Diastolic blood pressure 68 mm[Hg] Rolan Howard MD Work Phone: [facility] 12-18-2021 13:54-0400 Heart rate 69 /min Rolan Howard MD Work Phone: [facility] 12-18-2021 13:54-0400 Systolic blood pressure 131 mm[Hg] Rolan Howard MD Work Phone: [facility] 08-21-2021 10:20-0500 Body height 172.[address] Malu Rowe Work Phone: [facility] Work Phone: 08-21-2021 10:20-0500 Body mass index (BMI) [Ratio] 24 kg/m2 Dr. Malu Rowe Work Phone: [facility] Work Phone: 08-21-2021 10:20-0500 Body weight 71.[address] Malu Rowe Work Phone: [facility] Work Phone: 08-21-2021 10:20-0500 Diastolic blood pressure 68 mm[Hg] Dr. Malu Rowe Work Phone: [facility] Work Phone: 08-21-2021 10:20-0500 Heart rate 72 /min Dr. Malu Rowe Work Phone: [facility] Work Phone: 08-21-2021 10:20-0500 Respiratory rate 18 /min Dr. Malu Rowe Work Phone: [facility] Work Phone: 08-21-2021 10:20-0500 SaO2% (BldA) [Mass fraction] 100 % Dr. Malu Rowe Work Phone: [facility] Work Phone: 08-21-2021 10:20-0500 Systolic blood pressure 110 mm[Hg] Dr. Malu Rowe Work Phone: [facility] Work Phone: 05-09-2021 15:00-0400 Body height 177.8 cm Elias Rider II, MD Work Phone: [facility] Work Phone: 05-09-2021 15:00-0400 Body mass index (BMI) [Ratio] 22.81 kg/m2 Elias Rider II, MD Work Phone: [facility] Work Phone: 05-09-2021 15:00-0400 Body surface area Derived from formula 1.89 m2 Elias Rider II, MD Work Phone: XF-Zvbiudi-Tehggjf Work Phone: 05-09-2021 15:00-0400 Body weight 72.12 kg Elias Rider II, MD Work Phone: KI-Icoqreg-Iahwuwx Work Phone: 05-09-2021 15:00-0400 Diastolic blood pressure 73 mm[Hg] Elias Rider II, MD Work Phone: GX-Ndzboxn-Ycwfczx Work Phone: 05-09-2021 15:00-0400 Heart rate 74 /min Elias Rider II, MD Work Phone: KC-Dflgvzz-Hxmiviq Work Phone: 05-09-2021 15:00-0400 Systolic blood pressure 133 mm[Hg] Elias Rider II, MD Work Phone: XH-Fkgwfqm-Fpaxnyg Work Phone: 01-01-2020 13:29-0400 BP Diastolic 88 mm[Hg] [facility] 01-01-2020 13:29-0400 BP Systolic 170 mm[Hg] [facility] 01-01-2020 13:29-0400 Pulse (Heart Rate) 75 /min [facility] 01-01-2020 13:29-0400 Pulse Oximetry 95 % [facility] 01-01-2020 13:29-0400 Respiratory Rate 16 /min [facility] 01-01-2020 12:18-0400 BMI (Body Mass Index) 25.09 kg/m2 [facility] 01-01-2020 12:18-0400 Body weight 74.84 kg [facility] 01-01-2020 12:18-0400 Height 172.7 cm [facility] 01-01-2020 12:17-0400 Body Temperature 99.39 [degF] [facility] 12-27-2019 10:30-0400 BP Diastolic 95 mm[Hg] [facility] 12-27-2019 10:30-0400 BP Systolic 170 mm[Hg] [facility] Car[facility] 12-27-2019 10:30-0400 Pulse (Heart Rate) 72 /min [facility] 12-27-2019 10:30-0400 Pulse Oximetry 99 % [facility] 12-27-2019 10:30-0400 Respiratory Rate 18 /min [facility] 12-27-2019 09:36-0400 BMI (Body Mass Index) 25.09 kg/m2 [facility] 12-27-2019 09:36-0400 Body Temperature 99 [degF] [facility] 12-27-2019 09:36-0400 Body weight 74.84 kg [facility] 12-27-2019 09:36-0400 Height 172.7 cm [facility] 12-08-2019 16:37-0400 BMI (Body Mass Index) 23.82 kg/m2 Elias Briceñojannette CASANOVA YX-Gilpdlu-Brxcscc Work Phone: 12-08-2019 16:37-0400 Body weight 75.3 kg Elias Rider II FY-Yuoelxb-Eyule nd Work Phone: 12-08-2019 16:37-0400 BP Diastolic 85 mm[Hg] Elias Rider II FU-Dhcityn-Rawja nd Work Phone: 12-08-2019 16:37-0400 BP Systolic 126 mm[Hg] Elias Rider II UV-Huukjdv-Itypg nd Work Phone: 12-08-2019 16:37-0400 BSA (Body Surface Area) 1.93 m2 Elias Rider II FE-Bzjmiyz-Xkcrezb Work Phone: 12-08-2019 16:37-0400 Height 177.8 cm Elias Rider II FK-Veibivi-Zirgd nd Work Phone: 12-08-2019 16:37-0400 Pulse (Heart Rate) 76 /min Elias Rider II QQ-Dqbcztx-Qs hland Work Phone: Encounters Encounter Date Encounter Type Care Provider Facility Start: 06-10-2025 ambulatory Malu Maldonado y:[facility] Start: 06-07-2025 Encounter for other preprocedural examination Elias Isaacs GLASS UNLOADING EQUIPMENT TENDER [facility] Start: 06-07-2025 Encounter for preprocedural cardiovascular examination Elias Eubanks Shital GLASS UNLOADING EQUIPMENT TENDER [facility] Start: 06-07-2025 ambulatory Elias Eubanks Roof GLASS UNLOADING EQUIPMENT TENDER Facility :[facility] Start: 06-07-2025 ambulatory Elias Eubanks Roof GLASS UNLOADING EQUIPMENT TENDER Facility :[facility] Start: 06-03-2025 ambulatory Malu D Talampas Facilit y:[facility] Start: 06-02-2025 Encounter for preprocedural cardiovascular examination Elias Eubanks Shital GLASS UNLOADING EQUIPMENT TENDER [facility] Start: 06-02-2025 End: 06-02-2025 ambulatory Elias Eubanks Roof GLASS UNLOADING EQUIPMENT TENDER Facility:[facility] Start: 05-27-2025 End: 05-27-2025 ambulatory MALU D TALAMPAS Facility:[facility] Start: 05-27-2025 Encounter for other preprocedural examination [facility] Start: 05-20-2025 End: 05-20-[address] Malu Rowe MD Work Phone: [facility] Start: 05-20-2025 End: 05-20-2025 Patient encounter procedure Karla CABEZAS -[facility] Work Phone: Start: 05-16-2025 End: 05-16-2025 ambulatory MALU D TALAMPAS Facility:[facility] Start: 04-29-2025 End: 04-29-2025 ambulatory MALU D TALAMPAS Facility:[facility] Start: 04-29-2025 End: 04-29-2025 ambulatory MALU D TALAMPAS Facility:[facility] Start: 04-29-2025 Patient encounter procedure [facility] Start: 03-29-2025 End: 03-29-[address] Sidney Motta MD -[facility] Work Phone: Start: 03-29-2025 End: 03-29-[address] Malu Rowe MD Work Phone: -[facility] Start: 03-14-2025 End: 03-14-2025 Patient encounter procedure Massiel Harrell MD Work Phone: Ophthalmology Comment on above: Primary open angle g laucoma (POAG) of right eye, moderate stage (Primary Dx); Primary open angle glaucoma (POAG) of left eye, moderate stage; Optic cupping of both eyes; Homonymous hemianopsia, right Start: 03-14-2025 End: 03-14-2025 ambulatory MALU ROWE Facility:[facility] Start: 03-07-2025 End: 03-07-2025 Emergency department patient visit Dr. Malu Rowe MD Work Phone: -Emergency Department Work Phone: Start: 02-11-2025 End: 02-11-2025 ambulatory MOISES PENDLETON Facility:[facility] Start: 02-11-2025 End: 02-11-2025 Patient encounter procedure Moises Pendleton MD Work Phone: Pulmonary Medicine Comment on above: Centrilobular emphys mary ann (HCC) (Primary Dx); Nicotine dependence, cigarettes, uncomplicated; Pulmonary nodule Start: 01-26-2025 End: 01-26-2025 Telephone encounter Malu Rowe MD Work Phone: [facility] [place] Comment on above: Medication Request Start: 01-12-2025 End: 01-12-2025 Office outpatient visit 25 minutes Elias Rider MD Work Phone: [facility] Comment on above: Erectile dysfunction , unspecified erectile dysfunction type; Nocturia; High prostate specific antigen (PSA); Benign prostatic hyperplasia with lower urinary tract symptoms, symptom details unspecified Start: 01-12-2025 End: 01-12-2025 ambulatory [facility] Start: 01-04-2025 End: 01-04-2025 Telephone encounter Carolin Fang MD Work Phone: Cerebrovascular Center Comment on above: Results (CT scan res ults) Bilateral carotid ar radha stenosis (Primary Dx) Start: 12-31-2024 End: 12-31-2024 Subsequent hospital visit by physician [facility] (I-Stat) Work Phone: Cat Scan Comment on above: Nonruptured cerebral aneurysm (HCC) [I67.1] Start: 12-31-2024 End: 12-31-2024 ambulatory MALU ROWE Facility:[facility] Start: 12-30-2024 End: 12-30-2024 Orders Only A Raymond Fang MD Work Phone: Endovascular Center Comment on above: Intracranial atheros clerosis (Primary Dx) Start: 12-30-2024 End: 12-30-[address] EDILBERTO Rider MD -Laboratory Work Phone: Start: 12-30-2024 End: 12-30-2024 ambulatory Elias Rider II Facility:[facility] Start: 12-21-2024 End: 12-21-2024 ambulatory MALU ROWE Facility:[facility] Start: 11-05-2024 End: 11-24-2024 Telephone encounter Neurology Provider Neurology Start: 11-01-2024 End: 11-01-2024 ambulatory MALU ROWE Facility:[facility] Start: 11-01-2024 End: 11-01-2024 Subsequent hospital visit by physician [facility] (I-Stat) Work Phone: Cat Scan Comment on above: Abnormality of lung on CXR [R91.8] Start: 10-31-2024 End: 11-05-2024 Follow-up encounter Malu Rowe MD Work Phone: [facility] [place] Comment on above: Results (CXR) Results (labwork) Start: 10-29-2024 End: 11-01-2024 Telephone encounter Malu Rowe MD Work Phone: [facility] [place] Start: 10-27-2024 End: 10-27-2024 Subsequent hospital visit by physician Xr [facility] Work Phone: Radiology Comment on above: Chronic cough [R05.3 ] Start: 10-27-2024 End: 10-27-2024 ambulatory MALU ROWE Facility:[facility] Start: 10-27-2024 End: 10-27-2024 Office outpatient visit 25 minutes Malu Rowe MD Work Phone: [facility] [place] Comment on above: Chronic cough (Prima ry Dx); Weight loss; Vitamin D deficiency; Smoker unmotivated to quit Start: 09-28-2024 End: 09-28-2024 Follow-up encounter Art Donovan MD Work Phone: [facility] [place] Start: 09-27-2024 End: 09-27-2024 ambulatory ART DONOVAN Facility:[facility] Start: 09-27-2024 End: 09-27-2024 Office outpatient visit 15 minutes Art Donovan MD Work Phone: [facility] [place] Comment on above: Acute cough (Primary Dx); Chronic obstructive pulmonary disease, unspecified COPD type (HCC) Start: 09-13-2024 End: 09-13-2024 ambulatory MASSIEL HARRELL Facility:[facility] Start: 09-13-2024 End: 09-13-2024 Patient encounter procedure [...] (HCC) Start: 07-19-2024 End: 07-19-2024 ambulatory MALU D TALAMPAS Facility:[facility] Start: 07-19-2024 End: 07-19-2024 ambulatory MALU D TALAMPAS Facility:[facility] Start: 07-07-2024 End: 07-07-2024 Office outpatient visit 25 minutes Elias Rider MD Work Phone: [facility] Comment on above: Erectile dysfunction , unspecified erectile dysfunction type; Benign prostatic hyperplasia with lower urinary tract symptoms, symptom details unspecified; Urinary frequency; Nocturia Start: 07-07-2024 End: 07-07-2024 ambulatory [facility] Ambulatory Start: 05-12-2024 End: 05-12-2024 Office outpatient visit 25 minutes Vidal Christie APRN.DEVICE REPAIR TECHNICIAN Work Phone: [facility] Comment on above: Viral illness (Prima ry Dx); COPD with exacerbation (HCC) Start: 05-04-2024 End: 05-04-2024 Telephone encounter Kesha Boone APRN.ABALONE PROCESSOR Work Phone: [facility] [place] Comment on above: Results Start: 04-30-2024 End: 04-30-2024 Telephone encounter Kesha Boone APRN.ABALONE PROCESSOR Work Phone: [facility] [place] Comment on above: Results Start: 04-30-2024 End: 04-30-2024 Patient encounter procedure Christine Greene MD Work Phone: Endocrinology Comment on above: Elevated alkaline ph osphatase level [R74.8] (Primary Dx); Abnormal weight loss [R63.4] Start: 04-29-2024 End: 04-30-2024 Telephone encounter Kesha Boone APRN.ABALONE PROCESSOR Work Phone: [facility] [place] Comment on above: Recheck (Follow up f rom visit please let him know that on review of his chart it looks like 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 Schedule if willing. Also looks like) Start: 04-29-2024 End: 04-29-2024 Office outpatient visit 25 minutes Kesha Boone APRN.ABALONE PROCESSOR Work Phone: [facility] [place] Comment on [...] Telephone encounter Malu Rowe MD Work Phone: [address] [place] [address] Comment on above: Appointment Start: 03-29-2024 End: 03-29-2024 Patient encounter procedure Massiel Harrell MD Work Phone: Ophthalmology Comment on above: Primary open angle g laucoma (POAG) of right eye, moderate stage (Primary Dx); Primary open angle glaucoma (POAG) of left eye, moderate stage; Optic cupping of both eyes; Homonymous hemianopsia, right; Essential hypertension; H/O ischemic left MCA stroke Start: 03-10-2024 End: 03-10-2024 ambulatory [facility] Ambulatory Start: 12-01-2023 Telephone encounter Financial Navigator Christiano Work Phone: Financial Services Comment on above: Benefits Investigati on Start: 11-13-2023 End: 11-13-2023 ambulatory Treatment Rm 12 Christiano [facility] Work Phone: Hematology/Oncology Comment on above: Paget's bone disease (Primary Dx) Start: 11-12-2023 Orders Only Christine Greene MD Work Phone: Endocrinology Comment on above: Elevated alkaline ph osphatase level (Primary Dx) Start: 11-04-2023 Orders Only Christine Greene MD Work Phone: Endocrinology Start: 10-27-2023 End: 10-27-2023 Office outpatient visit 25 minutes Malu Rowe MD Work Phone: [facility] [place] Comment on above: Essential hypertensi on (Primary Dx); Elevated alkaline phosphatase level; Vitamin D deficiency; Recurrent depressive disorder, in remission (HCC); Paget disease of bone; Encounter for immunization Start: 09-19-2023 Refill Malu farr MD Work Phone: [facility] [place] Comment on above: Refill Request Start: 09-17-2023 End: 09-17-2023 ambulatory [facility] Work Phone: Start: 09-17-2023 End: 09-17-2023 Patient encounter procedure [facility]-Laboratory Work Phone: Start: 07-17-2023 ambulatory MALU ROWE [facility] Ambulatory Start: 07-11-2023 End: 07-11-2023 ambulatory [address] CANO [facility] Ambulatory Start: 07-11-2023 End: 07-11-2023 Patient encounter procedure Frank Cano [facility] Work Phone: [facility] [place] Comment on above: Paget's bone disease Start: 05-09-2023 Telephone encounter Malu santoyo MD Work Phone: [facility] [place] Comment on above: Question Start: 05-02-2023 Telephone encounter Kesha diaz SUPERVISOR BLOOD DONOR RECRUITERS.ABALONE PROCESSOR Work Phone: [facility] [place] Comment on above: Results Start: 05-01-2023 End: 05-01-2023 Subsequent hospital visit by physician [facility] Work Phone: Radiology Comment on above: Elevated alkaline ph osphatase level [R74.8] Start: 04-29-2023 End: 04-29-2023 Transcribe Orders Homero Castillo [facility] Comment on above: [...] Office outpatient visit 25 minutes Kesha Boone APRN.ABALONE PROCESSOR Work Phone: [facility] [place] Comment on above: Weight loss (Primary Dx); Encounter for immunization; Elevated alkaline phosphatase level; Adenocarcinoma of prostate (HCC); Memory difficulties Start: 04-23-2023 End: 04-23-[address] Malu Rowe Work Phone: [facility] Work Phone: Start: 04-23-2023 End: 04-23-[address] Malu Rowe Work Phone: [facility]-Cat Scan, [facility] Work Phone: Start: 04-17-2023 Telephone encounter Janeen guzmán SUPERVISOR BLOOD DONOR RECRUITERS.DEVICE REPAIR TECHNICIAN Work Phone: Endocrinology Comment on above: Appointment Start: 04-02-2023 ambulatory Malu Rowe Facility: [id number] Start: 04-02-2023 End: 04-02-[address] Malu Rowe Work Phone: [facility]-Laboratory Work Phone: Start: 03-27-2023 Telephone encounter Kesha diaz SUPERVISOR BLOOD DONOR RECRUITERS.ABALONE PROCESSOR Work Phone: [facility] [place] Comment on above: Results Start: 03-25-2023 End: 03-25-2023 Subsequent hospital visit by physician [facility] Work Phone: Radiology Comment on above: Weight loss [R63.4] Start: 03-25-2023 End: 03-25-2023 Office outpatient visit 25 minutes Kesha Boone SUPERVISOR BLOOD DONOR RECRUITERS.ABALONE PROCESSOR Work Phone: [facility] [place] Comment on above: Memory difficulties (Primary Dx); Adenocarcinoma of prostate (HCC); Recurrent depressive disorder, in remission (HCC); Subdural hematoma (HCC); Need for shingles vaccine; Screening for colon cancer; Encounter for immunization; Weight loss; Vitamin D deficiency; Encounter for screening for diabetes mellitus Start: 03-19-2023 End: 03-19-[address] Malu Rowe Work Phone: [facility] Work Phone: Start: 02-28-2023 ambulatory Cele Perez sJust[facility] [place] Comment on above: Population Health Na vigation Outreach ([employer] [facility]) Start: 01-21-2023 ambulatory Kellie Jimenezjuan Fontenot [facility] [place] Comment on above: Population Health Na vigation [...] Start: 01-18-2023 AUDIT Malu Rowe Work Phone: FY-Nlaxydf-Yechvaga HC 232 DO Work Phone: Start: 01-02-2023 AUDIT Malu Rowe Work Phone: WW-Qijgrxg-Bzmtkldd HC 232 DO Work Phone: Start: 12-04-2022 Telephone encounter Rolan Jimenez se, MD Work Phone: Vascular Surg Dept Comment on above: Appointment Start: 11-18-2022 Refill Kesha Boone APRN.CNS Work Phone: [facility] [place] Comment on above: Refill Request Start: 11-18-2022 AUDIT Malu Rowe Work Phone: DW-Cbpvcrp-Ahhiviry HC 232 DO Work Phone: Start: 11-09-2022 [...] by physician Massiel Harrell MD Work Phone: [facility] Comment on above: Primary open-angle g laucoma, left eye, moderate stage; Combined forms of age-related cataract, left eye; Essential (primary) hypertension; Peripheral vascular disease, unspecified (CMS/HCC); Benign prostatic hyperplasia without lower urinary tract symptoms; Personal history of transient ischemic attack (TIA), and cerebral infarction without residual deficits; Anxiety disorder, unspecified; Depression, unspecified; care home (current) use of 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; Tobacco use Start: [...] Kesha Boone APRN.CNS Work Phone: [facility] [place] Comment on above: Refill Request Start: 09-30-2022 End: 09-30-2022 Patient encounter procedure Massiel Harrell MD Work [...] eye Start: 09-26-2022 End: 09-26-2022 ambulatory Malu Rowe Facility:[id number] Start: 08-23-2022 End: 08-23-2022 Office outpatient visit 25 minutes Kesha Boone APRN.CNS Work Phone: [facility] [place] Comment on above: Preop exam for inter nal medicine (Primary Dx); Ocular hypertension, bilateral; Optic cupping of both eyes; Combined forms of age-related cataract of both eyes; Homonymous hemianopsia, right; H/O ischemic left MCA stroke; S/P carotid endarterectomy Start: 08-23-2022 End: 08-23-2022 Patient encounter status Kesha Boone APRN.CNS Work Phone: [facility] [place] Start: 07-19-2022 Orders Only Rolan Chiang Work Phone: Vascular Surg Dept Comment on above: Vasculopathy (Primar y Dx); Peripheral arterial disease (HCC) Start: 07-08-2022 Telephone encounter Irlanda rubin APRN.DEVICE REPAIR TECHNICIAN Work Phone: [facility] [place] Comment on above: Results Start: 06-14-2022 Telephone [...] sit 15 minutes Malu Rowe Work Phone: KG-Vqznuym-Nbxkrwaw HC 232 DO Work Phone: Start: 05-27-2022 ambulatory [facility] Facility: [id number] Start: 05-20-2022 End: 05-20-2022 ambulatory [facility] Work Phone: Start: 05-20-2022 End: 05-20-2022 Patient encounter procedure [facility]-Laboratory Start: 05-15-2022 End: 05-15-2022 Patient encounter procedure Anthony Watson MD Work Phone: Ophthalmology Comment on above: Homonymous hemianops ia, right (Primary Dx); Optic cupping of both eyes; Dry eye syndrome of both eyes Start: 05-07-2022 AUDIT Malu Rowe Work Phone: CN-Mtlrrkh-Bsrqevy Work Phone: Start: 03-04-2022 Office outpatient vi sit 15 minutes Malu Rowe Work Phone: ZG-Dtmjwdb-Fggzlvf Work Phone: Start: 02-26-2022 Chart Update Malu Rowe Work Phone: WN-Utqtnqw-Kvrqcgp Work Phone: Start: 02-26-2022 ambulatory Malu Rowe Facility: [id number] Start: 02-22-2022 End: 02-22-2022 Nursing evaluation of patient and report Mi Nurse Work Phone: [facility] [place] Comment on above: Need for vaccination (Primary Dx) Start: 01-14-2022 ambulatory Tammy Thompson MA [facility] [place] Comment on above: Population Health Na vigation Outreach ([place] Attribution ) Start: 12-26-2021 End: 12-26-2021 Patient [...] Start: 11-21-2021 AUDIT Elias Chiang Work Phone: NF-Fuaonyo-Otrqjxh Work Phone: Start: 11-16-2021 End: 11-16-[address] Malu Rowe Work Phone: [facility]Labor[facility] Start: 11-06-2021 End: 11-06-2021 Patient encounter [...] Start: 10-25-2021 Telephone encounter Kesha Mcclellan emily BONDSN.ABALONE PROCESSOR Work Phone: [facility] [place] Comment on above: Results, Lab (FOBT) Start: 08-21-2021 End: 08-21-[address] Malu Rowe Work Phone: [facility] [facility] Start: 05-09-2021 Office outpatient vi sit 25 minutes Elias Rider II, MD Work Phone: YT-Oagyyut-Tepmsxf Work Phone: Start: 10-02-2020 Office outpatient vi sit 25 minutes Elias Rider II, MD Work Phone: VE-Gfjjlyi-Xweuhfg Work Phone: Start: 02-22-[address] Rakel Rowe Work Phone: [facility] Start: 01-01-2020 End: 01-01-2020 Emergency department patient visit Samson Maurer Work Phone: [facility] Start: 12-27-2019 End: 12-27-2019 Emergency department patient visit ARTHUR CARCAMO [facility] Start: 12-27-2019 End: 12-27-2019 Emergency department patient visit Arthur Carcamo Work Phone: [facility] Comment on above: Peripheral edema (Pr imary Dx) Start: 12-08-2019 Patient encounter procedure Elias Rider II SN-[id number]-Gllrdiq Work Phone: Start: 10-11-2019 Patient encounter procedure Elias Rider II [id number]-[id number] Work Phone: Procedures Date Procedure Procedure Detail [...] field xm uni/ bi w/interp extended exam Massiel Harrell MD Work Phone: Start: 04-29-2024 [employer] COVI D-19 VACCINE AGE 12+ YR (COMIRNATY) Kesha Boone SUPERVISOR BLOOD DONOR RECRUITERS.ABALONE PROCESSOR Work Phone: Start: 04-29-2024 Lipid 1995 panel - S chau or Plasma Kesha Boone SUPERVISOR BLOOD DONOR RECRUITERS.ABALONE PROCESSOR Work Phone: Start: 03-29-2024 Computerized ophthal lauren imaging optic nerve Massiel Harrell MD Work Phone: Start: 10-27-2023 [employer] COVI D-19 VACCINE (2022- SEASON) AGE 12+ YR Malu Rowe MD Work Phone: Start: 05-01-2023 Us abdominal real ti me w/image limited Kesha Boone SUPERVISOR BLOOD DONOR RECRUITERS.ABALONE PROCESSOR Work Phone: Start: 04-29-2023 End: 04-29-2023 Visual field xm uni/bi w/interp extended exam Massiel Harrell MD Work Phone: Start: 04-23-2023 Computed tomography of abdomen and pelvis with contrast Dr. Malu Rowe Work Phone: Start: 03-25-2023 Radiologic exam ches t 2 views Kesha Boone SUPERVISOR BLOOD DONOR RECRUITERS.ABALONE PROCESSOR Work Phone: Start: 01-21-2023 Ct angiography head [...] panel - S chau or Plasma Janeen Carolinaoce SUPERVISOR BLOOD DONOR RECRUITERS.DEVICE REPAIR TECHNICIAN Work Phone: Start: 05-15-2022 Computerized ophthal lauren imaging optic nerve Anthony Watson MD Work Phone: Start: 02-22-2022 [employer] COVI D-19 VACCINE, AGE 12+ YR (PECK TOP) Malu Rowe MD Work Phone: Start: 12-26-2021 Computerized ophthal lauren imaging optic nerve Anthony Watson MD Work Phone: Start: 11-06-2021 Visual field xm uni/ bi w/interp extended exam Anthony Watson MD Work Phone: Start: 03-25-2020 History of carotid endarterectomy S/P carotid endarterectomy Kesha Boone SUPERVISOR BLOOD DONOR RECRUITERS.ABALONE PROCESSOR Work Phone: Start: 01-01-2020 X-ray of right [...] carotid endarterectomy S/P carotid endarterectomy Kesha Boone APRNFaustinaABALONE PROCESSOR Work Phone: History of carotid endarterectomy S/P carotid endarterectomy Carlos A Kennedy MD Work Phone: History of carotid endarterectomy S/P carotid endarterectomy Carlos A Kennedy MD Work Phone: Operative procedure on knee Elias Rider II Patch repair of marques tid artery Elias Rider II Plan of Treatment Date Care Activity Detail Author Start: 04-29-2029 Lipid panel Lipid Screening [facility] Start: 03-25-2028 PROSTATE CANCER SCREENING DISCUSSION PROSTATE CANCER SCREENING DISCUSSION [facility] Start: 10-28-2027 Diabetes Screening Diabetes Screenin [facility] Start: 06-18-2027 Lipid 1996 panel - Serum or Plasma Lipid Screening [facility] Start: 06-18-2027 Lipid panel Lipid Screening [facility] Start: 06-18-2027 LIPID SCREEN LIPID SCREEN [facility] Start: 04-29-2027 Diabetes Screening Diabetes Screenin [facility] Start: 11-12-2026 Diabetes Screening Diabetes Screenin g [facility] Start: 08-30-2026 LIPID SCREEN LIPID SCREEN [facility] Start: 03-25-2026 DIABETES SCREEN DIABETES SCREEN [facility] Start: 03-25-2026 Diabetes Screening Diabetes Screenin [facility] Start: 12-21-2025 BP Controlled (<130/80) BP Con trolled (<130/80) [facility] Start: 12-14-2025 DTaP/Tdap/Td Vaccine s (2 - Td or Tdap) DTaP/Tdap/Td Vaccines (2 - Td or Tdap) [facility] Start: 12-14-2025 Tetanus vaccination Tetanus: Every 1 0yrs [facility] Start: 12-14-2025 Urine microalbumin profile [facility] Start: 10-31-2025 End: 10-31-2025 Patient encounter procedure 10/31/2025 1:40 PM EDT Office Visit [facility] [address] [place], [place] [id number] Malu Rowe MD [address] [place], [place] [address] 6 month follow up [facility] Comment on above: 6 month follow up Start: 10-27-2025 Annual PCP Team Impress Associate dayanna Disease Visit Annual PCP Team Chronic Disease Visit [facility] Start: 10-27-2025 BP Controlled (<130/80) BP Con trolled (<130/80) [facility] Start: 09-27-2025 Annual PCP Team Impress Associate dayanna Disease Visit Annual PCP Team Chronic Disease Visit [facility] Start: 09-27-2025 BP Controlled (<130/80) BP Con trolled (<130/80) [facility] Start: 09-21-2025 End: 09-21-2025 Patient encounter procedure 09/21/2025 2:30 PM EST Office Visit [place] [address] [place] [address] [facility] [address] [address] vf/fp Ophthalmology Comment on above: vf/fp Start: 08-23-2025 DIABETES SCREEN DIABETES SCREEN [facility] Start: 07-19-2025 BP Controlled (<130/80) BP Con trolled (<130/80) [facility] Start: 07-07-2025 End: 07-07-2025 Patient encounter procedure Radiology Comment on above: Dx: Bilateral caroti d artery stenosis [I65.23] follow up Start: 07-06-2025 End: 02-03-2026 US Carotid arteries - bilateral US CAROTID BILATERAL Radiology Routine Bilateral carotid artery stenosis Expected: 07/06/2025 (Approximate), Expires: 02/03/2026 [facility] Work Phone: Comment on above: Expected: 07/06/2025 (Approximate), Expires: 02/03/2026 Start: 06-18-2025 DIABETES SCREEN DIABETES SCREEN [facility] Start: 05-20-2025 [facility] Start: 05-16-2025 End: 05-16-2025 Patient encounter procedure 05/16/2025 3:15 PM EDT Office Visit Pulmonary Medicine [address] [place] [address] Caroline Johnson MD [address] [facility] [address] [place], [place] [id number] 3 month follow up after PFT - Mohamed patient tranfering closer to home Pulmonary Medicine Comment on above: [address] PFT - Mohamed patient tranfering closer to home Start: 05-16-2025 End: 05-16-2025 ambulatory PULM LAB [facility] Comment on above: Centrilobular emphys mary ann (HCC) [J43.2] Start: 05-12-2025 BP Controlled (<130/80) BP Con trolled (<130/80) [facility] Start: 05-03-2025 Screening for malign ant neoplasm of colon [facility] Start: 04-30-2025 BP Controlled (<130/80) BP Con trolled (<130/80) [facility] Start: 04-29-2025 BP Controlled (<130/80) BP Con trolled (<130/80) [facility] Start: 04-29-2025 End: 04-29-2025 Patient encounter procedure 04/29/2025 1:40 PM EDT Office Visit [facility] [place] [address] [place] [address] Kesha Boone APRN.ABALONE PROCESSOR [address] [place] [address] 6 month follow up [facility] [place] Comment on above: 6 month follow up Start: 04-14-2025 End: 01-12-2026 Prostate specific Ag [Mass/volume] in Serum or Plasma Prostate Specific Antigen Lab Routine Nocturia High prostate specific antigen (PSA) Expected: 04/14/2025 (Approximate), Expires: 01/12/2026 [facility] Service Area Work Phone: Comment on above: Expected: 04/14/2025 (Approximate), Expires: 01/12/2026 Start: 04-04-2025 Influenza vaccination Influenza Vacc ine (#1) [facility] Start: 03-24-2025 Shingrix Vaccine (2 of 2) Shingrix Vaccine (2 of 2) [facility] Start: 03-14-2025 End: 03-14-2025 Patient encounter procedure 03/14/2025 1:45 PM EDT Office Visit [facility] [address] [place] [address] Massiel Harrell MD [address] [place] [address] vf/fp Ophthalmology Comment on above: vf/fp Start: 03-07-2025 [facility] Start: 02-11-2025 End: 02-11-2025 Patient encounter procedure 02/11/2025 9:00 AM EDT Office Visit Pulmonary Medicine [address] [place] [address] Moises Pendleton MD [address] [place], [place] [id number] ?COPD//lung nodule Pulmonary Medicine Comment on above: ?COPD//lung nodule Start: 01-18-2025 End: 01-18-2025 Patient encounter procedure 01/18/2025 9:30 AM EDT Office Visit Pulmonary Medicine [address] [place] [address] Moises Pendleton MD [address] [place] [address] ?COPD//lung nodule [facility] Comment on above: ?COPD//lung nodule Start: 01-12-2025 End: 01-12-2025 Patient encounter procedure 01/12/2025 1:15 PM EDT Office Visit [facility] [address] [phone] Elias Rider MD [address] [place] [address] [facility] Start: 01-02-2025 End: 07-07-2025 Prostate specific Ag [Mass/volume] in Serum or Plasma Prostate Specific Antigen Lab Routine Nocturia Expected: 01/02/2025 (Approximate), Expires: 07/07/2025 [facility] Service Area Work Phone: Comment on above: Expected: 01/02/2025 (Approximate), Expires: 07/07/2025 Start: 12-31-2024 End: 12-31-2024 Patient encounter procedure 12/31/2024 10:40 AM EDT Appointment Cat Scan [address] [place] [address] 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] Cat Scan Comment on above: Dx: Nonruptured cere bral aneurysm (HCC) [I67.1] Start: 12-30-2024 End: 03-31-2025 Creatinine and Glomerular filtration rate.predicted panel - Serum, Plasma or Blood CREATININE BLD Lab Routine Intracranial atherosclerosis Expected: 12/30/2024, Expires: 03/31/2025 [facility] Work Phone: Comment on above: Expected: 12/30/2024 , Expires: 03/31/2025 Start: 12-21-2024 End: 12-21-2024 Patient encounter procedure 12/21/2024 10:00 AM EDT Office Visit [facility] [address] [place] [address] Carolin Fang MD [address] [place] [address] Diagnosis: L ICA Athero/Aneurysm [facility] Comment on above: Diagnosis: L ICA Ath ero/Aneurysm Start: 12-14-2024 End: 12-14-2024 Patient encounter procedure 12/14/2024 10:15 AM EDT Office Visit Pulmonary Medicine [address] [place], [place] [phone] Moises Pendleton MD [address] [place] [address] lung nodule Pulmonary Medicine Comment on above: lung nodule Start: 12-07-2024 PROSTATE CANCER SCREENING DISCUSSION PROSTATE CANCER SCREENING DISCUSSION [facility] Start: 10-31-2024 End: 12-22-2024 CT Chest WO contrast CT CHEST WO IVCON Radiology Routine Abnormality of lung on CXR Expected: 10/31/2024, Expires: 12/22/2024 [facility] Work Phone: Comment on above: Expected: 10/31/2024 , Expires: 12/22/2024 Start: 10-27-2024 End: 01-26-2025 25-hydroxyvitamin D3 [Mass/volume] in Serum or Plasma [facility] Comment on above: Expected: 10/27/2024 , Expires: 01/26/2025 Start: 10-27-2024 End: 01-26-2025 CBC panel - Blood by Automated count [facility] Comment on above: Expected: 10/27/2024 , Expires: 01/26/2025 Start: 10-27-2024 End: 01-26-2025 Comprehensive metabolic 2000 panel - Serum or Plasma [facility] Comment on above: Expected: 10/27/2024 , Expires: 01/26/2025 Start: 10-27-2024 COVID-19 Vaccine ( season) COVID-19 Vaccine ( season) [facility] Start: 10-27-2024 Covid-19 Vaccine ( season) Covid-19 Vaccine () [facility] Start: 10-27-2024 End: 01-26-2025 Magnesium [Mass/volume] in Serum or Plasma [facility] Comment on above: Expected: 10/27/2024 , Expires: 01/26/2025 Start: 10-27-2024 End: 10-27-2024 Patient encounter procedure 10/27/2024 2:00 PM EDT Office Visit [facility] [place] [address] [place] [address] Malu Rowe MD [address] [place] [address] 6 mo follow up [facility] [place] Comment on above: 6 mo follow up Start: 10-27-2024 End: 01-26-2025 Thyrotropin [Units/volume] in Serum or Plasma [facility] Comment on above: Expected: 10/27/2024 , Expires: 01/26/2025 Start: 10-27-2024 End: 01-26-2025 Thyroxine (T4) free [Mass/volume] in Serum or Plasma [facility] Comment on above: Expected: 10/27/2024 , Expires: 01/26/2025 Start: 10-27-2024 End: 01-26-2025 Triiodothyronine (T3) Free [Mass/volume] in Serum or Plasma [facility] Comment on above: Expected: 10/27/2024 , Expires: 01/26/2025 Start: 10-26-2024 Annual PCP Team Impress Associate dayanna Disease Visit Annual PCP Team Chronic Disease Visit [facility] Start: 10-26-2024 BP Controlled (<130/80) BP Con trolled (<130/80) [facility] Start: 09-22-2024 End: 09-22-2024 Patient encounter procedure 09/22/2024 1:45 PM EST Office Visit [place] [address] [place] [address] vf/fp return in 6 months Ophthalmology Comment on above: vf/fp return in 6 mo nths Start: 08-30-2024 DIABETES SCREEN DIABETES SCREEN [facility] Start: 08-04-2024 Advance Directive Discussion Advance Directive Discussion [facility] Start: 08-04-2024 Medicare Advantage Annual Wellness Visit Medicare [facility] Annual Wellness Visit [facility] Start: 07-19-2024 End: 07-19-2024 Patient encounter procedure 07/19/2024 3:30 PM EST Office Visit Vascular Surg Dept [address] [place] [address] Carlos A Kennedy MD [address] [place] [address] DX:S/P carotid endarterectomy Vascular Surg Dept Comment on above: DX:S/P carotid endar terectomy Start: 07-19-2024 End: 07-19-2024 Patient encounter procedure Vascular Surgery Comment on above: 1 Year W/ Carotid & Full PVR Start: 04-30-2024 End: 04-30-2024 Patient encounter procedure 04/30/2024 11:40 AM EDT Office Visit Endocrinology [address] [place] [address] Christine Greene MD [address] [place] [address] Follow up Endocrinology Comment on above: Follow up Start: 04-29-2024 End: 07-29-2024 25-hydroxyvitamin D3 [Mass/volume] in Serum or Plasma [facility] Comment on above: Expected: 04/29/2024 , Expires: 07/29/2024 Start: 04-29-2024 End: 07-29-2024 Alpha 1 antitrypsin [Mass/volume] in Serum or Plasma [facility] Comment on above: Expected: 04/29/2024 , Expires: 07/29/2024 Start: 04-29-2024 End: 07-29-2024 CBC W Auto Differential panel - Blood [facility] Comment on above: Expected: 04/29/2024 , Expires: 07/29/2024 Start: 04-29-2024 End: 07-29-2024 Comprehensive metabolic 2000 panel - Serum or Plasma [facility] Comment on above: Expected: 04/29/2024 , Expires: 07/29/2024 Start: 04-29-2024 End: 07-29-2024 Lipid 1996 panel - Serum or Plasma [facility] Comment on above: Expected: 04/29/2024 , Expires: 07/29/2024 Start: 04-29-2024 End: 07-29-2024 PSA/PROSTATE SPECIFIC ANTIGEN SCREENING [facility] Comment on above: Expected: 04/29/2024 , Expires: 07/29/2024 Start: 04-29-2024 End: 07-29-2024 Thyrotropin [Units/volume] in Serum or Plasma [facility] Comment on above: Expected: 04/29/2024 , Expires: 07/29/2024 Start: 04-29-2024 End: 04-29-2024 Patient encounter procedure 04/29/2024 11:00 AM EDT Office Visit [facility] [address] [place] [address] Kesha Boone APRN.ABALONE PROCESSOR [address] [place] [address] 6 mo follow up [facility] Comment on above: 6 mo follow up Start: 04-25-2024 BP Controlled (<130/80) BP Con trolled (<130/80) [facility] Start: 04-04-2024 Covid-19 Vaccine () Covid-19 Vaccine () [facility] Start: 04-04-2024 Influenza vaccination C [facility] Start: 03-26-2024 COLORECTAL CANCER SCREENING COLORECTAL CANCER SCREENING [facility] Start: 03-26-2024 FECAL OCCULT BLOOD FECAL OCCULT BLOO D [facility] Start: 03-26-2024 Screening for malign ant neoplasm of colon [facility] Start: 03-25-2024 BP CONTROLLED (<130/80) BP CON TROLLED (<130/80) [facility] Start: 03-08-2024 End: 03-08-2024 Patient encounter procedure 03/08/2024 2:15 PM EDT Office Visit [facility] [address] [place] [address] Massiel Harrell MD [address] [facility] [place] [address] VF/FP Ophthalmology Comment on above: VF/FP Start: 02-26-2024 Covid-19 Vaccine ( season) Covid-19 Vaccine () [facility] Start: 02-01-2024 Influenza vaccination Influenza Vacc ine (#1) [facility] Comment on above: Postponed from 04/04 (Declined at this time) Start: 01-22-2024 BP CONTROLLED (<130/80) BP CON TROLLED (<130/80) [facility] Start: 11-12-2023 End: 02-11-2024 Comprehensive metabolic 2000 panel - Serum or Plasma COMPREHENSIVE METABOLIC PANEL Lab Routine Elevated alkaline phosphatase level Expected: 11/12/2023, Expires: 02/11/2024 [facility] Work Phone: Comment on above: Expected: 11/12/2023 , Expires: 02/11/2024 Start: 10-29-2023 BP CONTROLLED (<130/80) BP CON TROLLED (<130/80) [facility] Start: 08-30-2023 BP CONTROLLED (<130/80) BP CON TROLLED (<130/80) [facility] Start: 08-27-2023 End: 08-27-2023 Patient encounter procedure 08/27/2023 1:30 PM EST Office Visit [facility] [address] [phone] Elias Rider MD [address] [place] [address] [facility] Start: 08-23-2023 BP CONTROLLED (<130/80) BP CON TROLLED (<130/80) [facility] Start: 08-04-2023 Advance Directive Discussion Advance Directive Discussion [facility] Start: 07-11-2023 End: 07-11-2023 Patient encounter procedure 07/11/2023 11:00 AM EST Office Visit [facility] [place] [address] [place] [phone] Frank Cano, DEVICE REPAIR TECHNICIAN [address] [facility] [address] [facility] [place] Start: 06-18-2023 ANNUAL PCP TEAM SALES MANAGER PREARRANGED FUNERALS DAYANNA DISEASE VISIT ANNUAL PCP TEAM CHRONIC DISEASE VISIT [facility] Start: 06-18-2023 BP CONTROLLED (<130/80) BP CON TROLLED (<130/80) [facility] Start: 04-04-2023 Covid-19 Vaccine () Covid-19 Vaccine () [facility] Start: 04-04-2023 Influenza vaccination C [facility] Start: 03-25-2023 End: 05-25-2023 25-hydroxyvitamin D3 [Mass/volume] in Serum or Plasma [facility] Work Phone: Comment on above: Expected: 03/25/2023 , Expires: 05/25/2023 Start: 03-25-2023 End: 05-25-2023 Comprehensive metabolic 2000 panel - Serum or Plasma [facility] Work Phone: Comment on above: Expected: 03/25/2023 , Expires: 05/25/2023 Start: 03-25-2023 End: 05-25-2023 PSA/PROSTSPECAG SCRN [facility] Work Phone: Comment on above: Expected: 03/25/2023 , Expires: 05/25/2023 Start: 03-25-2023 End: 05-25-2023 Thyrotropin [Units/volume] in Serum or Plasma [facility] Work Phone: Comment on above: Expected: 03/25/2023 , Expires: 05/25/2023 Start: 01-31-2023 Influenza vaccination INFLUENZA (#1) [facility] Comment on above: Postponed from 04/04 (Declined at this time) Start: 10-16-2022 COLORECTAL CANCER SCREENING COLORECTAL CANCER SCREENING [facility] Start: 03-15-2023 COVID-19 VACCINE (5 - Pfizer series) COVID-19 VACCINE (5 - Pfizer series) [facility] Start: 10-16-2022 FECAL OCCULT BLOOD FECAL OCCULT BLOO D [facility] Start: 08-30-2022 ANNUAL PCP TEAM SALES MANAGER PREARRANGED [employer]ERALS ADYANNA DISEASE VISIT ANNUAL PCP TEAM CHRONIC DISEASE VISIT [facility] Start: 08-30-2022 BP CONTROLLED (<130/80) BP CON TROLLED (<130/80) [facility] Start: 08-23-2022 End: 10-23-2022 Comprehensive metabolic 2000 panel - Serum or Plasma [facility] Work Phone: Comment on above: Expected: 08/23/2022 , Expires: 10/23/2022 Start: 08-13-2022 COVID-19 Vaccine (2 - Pfizer series) COVID-19 Vaccine (2 - Pfizer series) [facility] Start: 08-05-2022 SHINGRIX VACCINE (1 of 2) SHINGRIX VACCINE (1 of 2) [facility] Comment on above: Postponed from 07/12 (Insurance Coverage) Start: 08-04-2022 ADVANCE DIRECTIVE DISCUSSION ADVANCE DIRECTIVE DISCUSSION [facility] Start: 05-27-2022 WARD, Provider : Elias Rider II, Status: Pen, Time: 10:00 AM WARD, Provider: Elias Rider II, Status: Pen, Time: 10:00 AM [id number] Work Phone: Start: 04-04-2022 Influenza vaccination C [facility] Start: 03-06-2022 WARD, Provider : Elias Rider II, Status: Pen, Time: 8:00 AM WARD, Provider: Elias Rider II, Status: Pen, Time: 8:00 AM [facility] Work Phone: Start: 01-31-2022 Influenza vaccination INFLUENZA (#1) [facility] Comment on above: Postponed from 04/04 (Declined at this time) Start: 01-30-2022 FUV, Provider: Elias Rider II, Status: Pen, Time: 2:00 PM FUV, Provider: Elias Rider II, Status: Pen, Time: 2:00 PM [facility] Work Phone: Start: 01-26-2022 ANNUAL PCP TEAM SALES MANAGER PREARRANGED [employer]ER[employer] DAYANNA DISEASE VISIT ANNUAL PCP TEAM CHRONIC DISEASE VISIT [facility] Start: 11-21-2021 FUV, Provider: Elias Rider II, Status: Pen, Time: 2:00 PM FUV, Provider: Elias Rider II, Status: Pen, Time: 2:00 PM [facility] Work Phone: Start: 08-04-2021 ADVANCE DIRECTIVE DISCUSSION ADVANCE DIRECTIVE DISCUSSION [facility] Start: 04-05-2021 Pneumococcal Vaccine : Age 65+ (2 - PCV) Pneumococcal Vaccine: Age 65+ (2 - PCV) [facility] Start: 04-05-2021 PNEUMOCOCCAL: 65+ (2 - PCV) PNEUMOCOCCAL: 65+ (2 - PCV) [facility] Start: 05-04-2020 Assay of prostate specific antigen total Prostate Specific Antigen [facility] Work Phone: Start: 04-04-2020 Influenza vaccination INFLUENZ A VACCINE (Season Ended) [facility] Start: 04-04-2020 Influenza vaccinatio n given Sequential Influenza Vaccine (Season Ended) [facility] Start: 11-28-2019 BP CONTROLLED (<130/80) BP CON TROLLED (<130/80) [facility] Start: 2019 Abdominal aortic aneurysm screening ABDOMINAL AORTIC ANEURYSM HIGH RISK SCREEN [facility] Start: 2019 Fall risk assessment Falls Risk Asse ssment [facility] Start: 2019 Pneumococcal vaccination [facility] Start: 2014 RSV High Risk: (Elde rly (60+) or Population) (1 - Risk 60-74 years 1-dose series) RSV High Risk: (Elderly (60+) or Population) (1 - Risk 60-74 years 1-dose series) [facility] Start: 2014 RSV Vaccine (1 - 1-d ose 60+ series) RSV Vaccine (1 - 1-dose 60+ series) [facility] Start: 2014 RSV Vaccine (1 - Ris k 60-74 years 1-dose series) RSV Vaccine (1 - Risk 60-74 years 1-dose series) [facility] Start: 2004 Administration of herpes zoster vaccine Zoster Vaccines (1 of 2) [facility] Start: 2004 Colonoscopy COLORECTAL CAN CER SCREENING DISCUSSION [facility] Start: 2004 Prostate specific antigen measurement PROSTATE CANCER SCREENING DISCUSSION [facility] Start: 2004 Screening for malign ant neoplasm of colon Flexible sigmoidoscopy [facility] Start: 2004 SHINGRIX VACCINE (1 of 2) SHINGRIX VACCINE (1 of 2) [facility] Start: 2004 Zoster vaccine hzv l hilda for subcutaneous use ZOSTER (SHINGLES) VACCINE (1 of 2) [facility] Start: 2004 Zoster Vaccines (1 o f 2) Zoster Vaccines (1 of 2) [facility] Start: 1999 COLOGUARD (FIT-DNA) COLOGUARD (FIT-D NA) [facility] Start: 1999 Colonoscopy COLONOSCOPY [facility] Start: [address] COLONOGRAPHY [facility] Start: 1999 Screening for malign ant neoplasm of colon [facility] Start: 1999 SIGMOIDOSCOPY SIGMOIDOSCOPY [facility] Start: 1994 Fasting lipid profile LIPID SCREENIN G [facility] Start: 1984 Zoledronic acid therapy Alpha- 1 Antitrypsin Deficiency Screening [facility] Start: 1973 Third diphtheria, tetanus and acellular pertussis (DTaP) vaccination TDAP (ADULT) [facility] Start: 1972 Hepatitis C screening Hepatitis C Sc reening [facility] Start: 1972 Tetanus vaccination [facility] Start: 1966 Depression screening using PHQ-9 (Patient Health Questionnaire 9) score Depression Screening (PHQ-2/9) [facility] Start: 1957 History and physical examination, annual for health maintenance Wellness Visit [facility] Start: 1954 Abdominal aortic aneurysm screening Abdominal Aortic Ultrasound [facility] Start: 1954 Annual wellness visit Welcome to Medicare Visit [facility] Start: 1954 Fall risk assessment Falls Risk Asse ssment [facility] Start: 1954 Hepatitis C antibody , confirmatory test [facility] Start: 1954 Lipid panel Lipid Panel [facility] Start: 1954 Medicare Annual Wellness Visit Medicare Annual Wellness Visit (AWV) [facility] Start: 1954 Prostate specific antigen measurement PSA Level [facility] Start: 1954 Screening for malign ant neoplasm of colon [facility] Start: 1954 Tetanus vaccination Tetanus: Every 1 0yrs [facility] Start: 1954 US scan of abdominal aorta Abdominal Aortic Ultrasound [facility] Camera fundoscopy FUNDUS PHOTOS OU (BOTH EYES) OPHT Imaging Routine Primary open angle glaucoma (POAG) of right eye, moderate stage 09/13/2024 1:30 PM EST [facility] Work Phone: COVID & INFLUENZA A/ B & RSV PCR, ROUTINE COVID & INFLUENZA A/B & RSV PCR, ROUTINE Microbiology Routine Viral illness Ordered: 05/12/2024 [facility] Work Phone: Comment on above: Ordered: 05/12/2024 COVID & INFLUENZA A/ B & RSV PCR, ROUTINE COVID & INFLUENZA A/B & RSV PCR, ROUTINE Microbiology Routine Acute cough 09/27/2024 7:56 PM EST [facility] Work Phone: CT Chest WO contrast CT CHEST WO IVCON Radiology Routine Abnormality of lung on CXR 11/01/2024 3:46 PM EDT [facility] End: 08-18-2023 CTA HEAD WO/W IVCON CTA HEAD WO/W IVCON Radiology Routine Vasculopathy 1 Occurrences starting 07/19/2022 until 08/18/2023 [facility] Work Phone: Comment on above: 1 Occurrences starti ng 07/19/2022 until 08/18/2023 End: 08-18-2023 CTA NECK W IVCON CTA NECK W IVCON Radiology Routine Vasculopathy 1 Occurrences starting 07/19/2022 until 08/18/2023 [facility] Work Phone: Comment on above: 1 Occurrences starti ng 07/19/2022 until 08/18/2023 End: 08-23-2023 ECG COMPLETE ECG COMPLETE ECG Routine Preop exam for internal medicine 1 Occurrences starting 08/23/2022 until 08/23/2023 [facility] Work Phone: Comment on above: 1 Occurrences starti ng 08/23/2022 until 08/23/2023 ECG COMPLETE ECG COMPLETE ECG 08/23/2022 8:27 AM EST [facility] Hemoglobin.gastroint est inal.lower [Presence] in Stool by Immunoassay FECAL OCCULT BLOOD TEST Lab Routine Screening for colon cancer Ordered: 03/25/2023 [facility] Work Phone: Comment on above: Ordered: 03/25/2023 Hemoglobin.gastroint est inal.lower [Presence] in Stool by Immunoassay IMMUNOCHEMICAL FECAL OCCULT BLOOD TEST Lab Routine Screening for colon cancer Ordered: 04/29/2024 [facility] Work Phone: Comment on above: Ordered: 04/29/2024 End: 03-13-2026 LUNG DIFFUSION CAPACITY (DLCO) LUNG DIFFUSION CAPACITY (DLCO) PFT Routine Centrilobular emphysema (HCC) 1 Occurrences starting 02/11/2025 until 03/13/2026 [facility] Comment on above: 1 Occurrences starti ng 02/11/2025 until 03/13/2026 End: 03-13-2026 LUNG VOLUMES LUNG VOLUMES PFT Routine Centrilobular emphysema (HCC) 1 Occurrences starting 02/11/2025 until 03/13/2026 [facility] Comment on above: 1 Occurrences starti ng 02/11/2025 until 03/13/2026 Patient Education ED Headache Unspecified [facility] Work Phone: End: 07-19-2023 PVR LEG [facility] Vascular Lab Routine Peripheral arterial disease (HCC) 1 Occurrences starting 07/19/2022 until 07/19/2023 [facility] Work Phone: Comment on above: 1 Occurrences starti ng 07/19/2022 until 07/19/2023 End: 04-23-2024 Radiologic exam chest 2 views XR CHEST 2V FRONTAL/LAT Radiology Routine Weight loss 1 Occurrences starting 03/25/2023 until 04/23/2024 [facility] Work Phone: Comment on above: 1 Occurrences starti ng 03/25/2023 until 04/23/2024 Radiologic exam ches t 2 views XR CHEST 2V FRONTAL/LAT Radiology Routine Weight loss 03/25/2023 4:23 PM EDT [facility] Work Phone: End: 03-13-2026 SIX MINUTE WALK SIX MINUTE WALK PFT Routine Centrilobular emphysema (HCC) 1 Occurrences starting 02/11/2025 until 03/13/2026 [facility] Comment on above: 1 Occurrences starti ng 02/11/2025 until 03/13/2026 End: 03-13-2026 SPIROMETRY WITH DILATOR IF OBSTRUCTED SPIROMETRY WITH DILATOR IF OBSTRUCTED PFT Routine Centrilobular emphysema (HCC) 1 Occurrences starting 02/11/2025 until 03/13/2026 [facility] Work Phone: Comment on above: 1 Occurrences starti ng 02/11/2025 until 03/13/2026 End: 05-24-2024 US ABD RIGHT UPPER QUADRANT US ABD RIGHT UPPER QUADRANT Radiology Routine Elevated alkaline phosphatase level 1 Occurrences starting 04/25/2023 until 05/24/2024 [facility] Work Phone: Comment on above: 1 Occurrences starti ng 04/25/2023 until 05/24/2024 End: 04-01-2025 US Carotid arteries - bilateral US CAROTID ARTERIES [facility] Vascular Lab Routine S/P carotid endarterectomy 1 Occurrences starting 04/01/2024 until 04/01/2025 [facility] Comment on above: 1 Occurrences starti ng 04/01/2024 until 04/01/2025 End: 12-18-2022 US CAROTID ARTERIES [facility] US CAROTID ARTERIES [facility] Vascular Lab Routine Bilateral carotid artery stenosis 1 Occurrences starting 12/18/2021 until 12/18/2022 [facility] Work Phone: Comment on above: 1 Occurrences starti ng 12/18/2021 until 12/18/2022 End: 01-22-2024 US CAROTID ARTERIES [facility] US CAROTID ARTERIES [facility] Vascular Lab Routine Bilateral carotid artery stenosis 1 Occurrences starting 01/21/2023 until 01/22/2024 [facility] Work Phone: Comment on above: 1 Occurrences starti ng 01/21/2023 until 01/22/2024 End: 04-01-2025 US Lower extremity artery - bilateral PVR LEG [facility] Vascular Lab Routine S/P carotid endarterectomy 1 Occurrences starting 04/01/2024 until 04/01/2025 [facility] Work Phone: Comment on above: 1 Occurrences starti ng 04/01/2024 until 04/01/2025 End: 11-26-2025 XR Chest PA and Lateral XR CHEST 2V FRONTAL/LAT Radiology Routine Chronic cough Smoker unmotivated to quit 1 Occurrences starting 10/27/2024 until 11/26/2025 [facility] Work Phone: Comment on above: 1 Occurrences starti ng 10/27/2024 until 11/26/2025 XR Chest PA and Lateral XR CHEST 2V FRONTAL/LAT Radiology Routine Chronic cough Smoker unmotivated to quit 10/27/2024 3:41 PM EDT [facility] HC-Hfsnaye-Habk and Work Phone: [facility] NEGATED: Highlighted row has been ruled out! Planned Goals not documented OA-Hkgorpj-Chxsglf Work Phone: Immunizations Immunization Date Immunization Notes Care Provider Karine tuttle 04-29-2024 COVID-19 vaccine, ag e 12+ yr (Shyp-BIOPECO [place] [facility]) Kesha Boone SUPERVISOR BLOOD DONOR RECRUITERS.ABALONE PROCESSOR Work Phone: [facility] 04-29-2024 influenza, high dose seasonal, preservative-free Kesha Boone SUPERVISOR BLOOD DONOR [employer]UIT[employer].ABALONE PROCESSOR Work Phone: [facility] 04-29-2024 influenza virus vacc ine, unspecified formulation Moises Pendleton MD Work Phone: [facility] 10-27-2023 COVID-19 vaccine, ag e 12+ yr, season (PFIZER-BIONTECH) Christine Greene MD Work Phone: [facility] 06-18-2022 COVID-19 booster vaccine, age 12+ yr, bivalent (PFIZER-BIONTECH) Irlanda Canela SUPERVISOR BLOOD DONOR [employer]CRUITERS.DEVICE REPAIR TECHNICIAN Work Phone: [facility] 06-18-2022 pneumococcal (PCV20) vaccine, 20 valent (PREVNAR 20) Irlanda Canela SUPERVISOR BLOOD DONOR RECRUITERS.DEVICE REPAIR TECHNICIAN Work Phone: [facility] 02-22-2022 COVID-19 vaccine, ag e 12+ yr (PFIZER-BIONTECH - PECK TOP) Wi Nurse Work Phone: [facility] Work Phone: 09-03-2021 Pfizer Coreas Cap SARS-CoV-2 Massiel Harrell MD Work Phone: [facility] Work Phone: 06-23-2020 influenza, high-dose , quadrivalent vaccine (FLUZONE HIGH DOSE QUADRIVALENT) Kesha Boone SUPERVISOR BLOOD DONOR RECRUITERS.ABALONE PROCESSOR Work Phone: [facility] 06-23-2020 influenza virus vacc ine, unspecified formulation Janeen Wolf SUPERVISOR BLOOD DONOR RECRUITERS.DEVICE REPAIR TECHNICIAN Work Phone: [facility] 04-05-2020 pneumococcal polysaccharide vaccine, 23 valent Kesha Boone SUPERVISOR BLOOD DONOR RECRUITERS.ABALONE PROCESSOR Work Phone: [facility] 12-15-2015 tetanus toxoid, redu huy diphtheria toxoid, and acellular pertussis vaccine, adsorbed Kesha Boone SUPERVISOR BLOOD DONOR [employer]UITERS.ABALONE PROCESSOR Work Phone: [facility] Payers Date Payer Category Payer Self-pay [id number] 2024 Unknown [id number] 2023 Medicare (Managed Care) 1.2. [id number] 2023 Private Health Insurance [id number] 2022 Medicare [id number] 2020 Unknown ANTHEM BLUE CROS S AND BLUE SHIELD ANTHEM MEDIBLUE O [id number] 2020-Present [phone] [address] [place] [address] O [id number]. [id number] 2019 Medicare MEDICARE MEDICAR E PART A & B xxxxxxxxxxx 2019-Present CT xxxxxxxxxxx [id number] 2019 Medicare MEDICARE MEDICAR E A AND B [id number] 2019-Present [place], [place] [id number]. [id number] 2019 Medicare [id number] 2019 Medicare [id number]. 1.13.159.2. [id number] 1954 Unknown [id number] 2.16.840.1.663280.3.579.2. 903 1954 Unknown [id number] 2.16.840.1.818226.3.579.2. 1069 1954 Unknown [id number] 2.16.840.1.835491.3.579.2. 1069 1954 Unknown [id number] 2.16.840.1.428759.3.579.2. 1069 1954 Unknown [id number] 2.16.840.1.989895.3.579.2. 356 1954 Unknown [id number] 2.16.840.1.654783.3.579.2. 356 1954 Unknown [id number] 2.16.840.1.239866.3.579.2. 903 1954 Unknown [id number] 2.16.840.1.421245.3.579.2. 903 1954 Unknown [id number] 2..840.1.461871.3.579.2. 1244 1954 Unknown [id number] 2.840.1.972239.3.579.2. 1244 1954 Unknown [id number] 2.0.1.353349.3.579.2. 1244 Medicaid [id number] Medicare [id number] Unknown Unknown [id number] Unknown [id number] Unknown [id number] 2.840.1.546105.3.579.2. 462 Unknown [id number] 2.840.1.314219.3.579.2. 462 Unknown [id number] 2.840.1.401699.3.579.2. 462 Unknown [id number] 2.840.1.370112.3.579.2. 462 Unknown [id number] 2.840.1.806280.3.579.2. 462 Unknown [id number] 2.840.1.099309.3.579.2. 462 Unknown [id number] 2.16.840.1.758054.3.579.2. 462 Unknown [id number] 2.16.840.1.145800.3.579.2. 462 Unknown [id number] 2.16.840.1.693811.3.579.2. 462 Social History Date Type Detail Facility Start: 12-27-2019 End: 07-11-2023 Tobacco smoking status NHIS Current some day smoker [facility] Start: 08-04-1969 History of tobacco use Cigarette Smoker [facility] Start: 12-27-2019 End: 03-14-2025 Alcohol intake Ex-drinker (finding) [facility] Start: 12-27-2019 History SDOH Alcohol Frequency 1 [facility] Start: 12-27-2019 Alcohol Comment [facility] Start: 1955 Sex Assigned At Not on file O [facility] Start: 08-26-2021 End: 01-12-2025 Exposure to SARS-CoV-2 (event) Not sure [facility] Start: 08-04-1969 End: 10-27-2024 Tobacco smoking status PRIS Current every day smoker [facility] Start: 01-01-2020 End: 07-09-2020 Cigarettes smoked current (pack per day) - Reported [facility] Start: 01-01-2020 End: 03-14-2025 Tobacco use and exposure [facility] Start: 03-31-2020 End: 05-20-2025 Tobacco smoking status NHIS Ex-smoker [facility] Start: 12-15-2015 End: 06-18-2022 Tobacco Comment 1 pack per 4 to 5 days (started 10 to 15 years ago)--as of 12/15/15 [facility] Start: 08-21-2021 End: 03-19-2023 Tobacco smoking status PRIS Unknown if ever smoked [facility] Start: 10-16-2020 None [facility] Start: 10-16-2020 Spouse/ Signif icant Other [facility] Start: 1955 Sex Assigned At Male [facility] Start: 08-04-1969 History of tobacco use Current smoker [facility] Start: 07-09-2020 End: 08-22-2023 Tobacco use panel [facility] Start: 07-05-2012 Adult Depression Screening Assessment 0 [facility] Start: 12-27-2019 Gender identity Identifies as male gender (finding) [facility] Start: 12-27-2019 Sexual orientation Heterosexual (candelaria [place]) [facility] Start: 05-19-2023 Tobacco smoking status NHIS Never smoked tobacco [facility] NEGATED: Highlighted row - - MD-Xaxkssa-Khckkvr Work Phone: Medical Equipment Procedure Code Equipment Code Equipment Original Text Equipment Identifier Dates Patch Bovine Pericardial Vascular Duravess 8x8 - [id number] Start: 03-24-2020 Patch Thk.5mm Duncan vine Pericardial 31i18uv Cardiovascular Resilience Durable - [id number] Start: 04-04-2020 Comment on above: Description: Bovine patch Stent Viabahn 8m m 7fr Heparin 10cm 120cm Endoprosthesis Delivery System - [id number] Start: 04-04-2020 Stent Epic 10mm Nitinol 100mm 120cm Vascular Self Expand Accepts 6fr Sheath - [id number] Start: 04-04-2020 Stent Epic 10mm Nitinol 100mm 120cm Vascular Self Expand Accepts 6fr Sheath - [id number] Start: 04-04-2020 Stent Icast 8mm 7fr .035in Ptfe 38mm 120cm Tracheobronchial Covered - [id number] Start: 04-04-2020 Stent Icast 8mm 7fr .035in Ptfe 38mm 120cm Tracheobronchial Covered - [id number] Start: 04-04-2020 Goals Date Patient Goal Desired Activity /State Personal health goal Functional Status Date Assessment Result Facility NEGATED: Highlighted row Functional performance Functional status health issues are not documented Disease IY-Lxgxdlk-Jqkhfrl Work Phone: Mental Status Date Assessment Result Facility 03-07-2025 Cognitive function Level Of Cons ciousness Awake;Alert;Appropriate ;Follows Commands [facility] Work Phone: NEGATED: Highlighted row Cognitive function [Interpretation] Cognitive status health issues are not documented Disease FU-Vpbwakr-Bgbekkq Work Phone: Clinical Notes 04-07-2020 to 05-27-2025 Note Date & Type Note Facility 05-27-2025 Note HNO ID: [id number] Author: KESHA BOONE APRN.ABALONE PROCESSOR Service: ? Author Type: Nurse Specialist Type: [...] Scheduled for lipoma and cyst removal at [facility] by Dr. Thorne. - Lipoma on back [...] - No known diabetes. - No known KS. - No known dyspnea. - No known tobacco use. Weight Loss: - Unintentional weight loss of 18 lbs. Stable weight currently. - Good appetite; consuming Ensure protein shakes. - Concerned about potential cancer. Hypertension: - Managed by Dr. Fermin. 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 CVA: - History of CVA with residual vision loss. Lung Disease: - History of moderate COPD/lung disease. Followed by Dr. Caroline Johnson pulmonology. Has CT chest scheduled. History of stroke with residual vision loss. No history of KS. Able to take two flight of stairs without shortness of breath or chest pain. Followed by [facility] for hypertension and hyperlipidemia. Last [...] Lymph 1.00 - 4.00 k/uL 2.41 1.86 Whitley% % 6.9 7.4 Abs Whitley <0.87 k/uL 0.61 0.57 Eosin% % 0.7 [...] AST 14 - (more content not included)... [facility] 05-20-2025 Progress note [facility] 05-16-2025 Note HNO ID: [id number] Author: CAROLINE JOHNSON MD Service: ? Author Type: Physician Type: Progress Notes Filed: 05/16/2025 16:05 Note Text: . [facility] [place] Note Patient name: Denny Gomez PCP: Malu Rowe MD Referring Physician: Moises Pendleton MD CC: COPD, lung nodules HPI: Denny Gomez 69 year old male current smoker with PMH significant for HTN, Paget's disease, h/o stroke (occipital ICH, and MCA stroke), PAD s/p CEA, COPD, BPH, recently seen by Dr. Pendleton in [place]. Transferring care since lives in [place]. Recommendation at his initial visit was updated [...] DATE OF EXAM: Nov 01 2024 3:46PM [facility] 0541 - CT CHEST WO [...] intubated and sedated Plan: [place] Recurrent depressive disorder, in remission 02/26/2021 Stable on citalopram Stroke (cerebrum) (HCC) Subdural hematoma (HCC) 2018 ALLERGIES Allergen Reactions Seasonal Allergies Other: See Comments Sinus, runny nose sqzrfirhned-ustulymqo-nxlvacvk (TRELEGY ELLIPTA) 200-62.5-25 mcg inhalation powder Inhale [...] March 13, 2025. SOCIAL HISTORY[1] Worked at [employer] for 5 years Pets: None FAMILY HISTORY Problem Relation Age of Onset Heart Mother Glaucoma Brother Heart Brother Cancer Brother metastatic; no primary known PAST SURGICAL HISTORY Procedure Laterality Date ARTL CATHJ/CANNULJ MNTR/TRANSFUSION SPX PRQ 02/16/2008 CANALOPLASTY W/STENT Right 09/26/2022 Microstent CANALOPLASTY W/STENT Left 11/07/2022 CAROTID ENDARTERECTOMY Bilateral (more content not included)... [facility] 05-16-2025 Note HNO ID: [id number] Author: LAKEISHA ROSALES RPFT Service: ? Author [...] During 6 Minute Walk Pre-Pedro Dyspnea Rating Pre-Pedro Fatigue Rating Post Pedro Dyspnea Rating Post Pedro Fatigue Rating Walking Assistance/O2 Supply Carrier -- 0 0 0 0 Wheeled Walker Six Minute Walk Trend (Previous Encounters) None SIGNATURE: RUBIN Mccray PATIENT NAME: Denny Gomez DATE: May 16, 2025 TIME: 2:57 PM 6MINWALKTEST [facility] 04-29-2025 Note HNO ID: [id number] Author: KESHA BOONE APRN.ABALONE PROCESSOR Service: ? Author Type: Nurse Specialist Type: [...] care of Dr. Rider in urology at [facility]. - Recent PSA levels checked and reported [...] 2.4 Assessment/Plan Medicare annual wellness visit, subsequent (Z) - Counseled on healthy diet and regular exercise - Fall avoidance information provided - Personalized prevention plan provided 1. Medicare annual wellness visit, subsequent () - No acute concerns reported. - Declined influenza vaccine due to prior adverse reaction. - Follow-up in 6 months. 2. 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 Adenocarcinoma of prostate (HCC) (C61) - Under care of Dr. Rider (Urology) at [facility]; recent PSA within normal limits. (more content not included)... [facility] 03-29-2025 Evaluation note Diagnosis Onset Date Resolution Carotid artery stenosis chronic A ugust 2024 2:40pm Essential hypertension chronic Au [place] 2024 2:40pm Hyperlipidemia chronic March 2:40pm Peripheral vascular disease chronic March 29 2:40pm Epidermal inclusion cyst acute May 20, 2025 10:15am Lipoma of forehead acute Octobe r 2024 10:15am Subcutaneous mass of back acute May 20 10:15am [facility] [employer] Work Phone: [phone] 418-582908-11-2025 Instructions* Patient Instructions* Massiel Harrell MD - 03/14/2025 1:55 PM EDT If you have any questions please contact our office at [phone]. After office hours or on the weekend, please call Dr. Harrell on his cell phone at [phone]. [facility] NoteDate of Procedure 03/14/2025. Quality Right Eye Good. Left Eye Good. NFL Interpretation Right Eye Superior loss, Inferior loss. Left Eye Superior loss. Ganglion Cell Layer Thickness Right Eye Superior loss, Inferior loss, Temporal loss, Nasal loss. Left Eye Superior loss, Inferior loss, Temporal loss. Interval Change Right Eye Stable. Left Eye Stable.[id number] NoteHNO ID: [id number] Author: MASSIEL HARRELL MD Service: ? Author [...] questions about the findings, diagnosis, and treatment options.[facility]08-11-2025 History of Present illness Narrative* Massiel Harrell [...] diagnosis, and treatment options. documented in [facility] Radiology Diagnostic study note [facility] [address] [address] CTA Head W/WO Contrast MR#: [id number] Acct: [id number] Name: DENNY GOMEZ Rep #: [id number] : 1955 M 69 From: Blaine Naranjo MD PCP: Dr. Malu Rowe MD Status: RE G ER Study:CTA Head W/WO Contrast Date of Exam: 03/07/25 Exam# [id number] Ordering Dr: Oscar Gardner DO PROCEDURE: CTA [...] extra-axial fluid collection is seen. CT angiogram: [place]: Patent, small caliber posterior communicating [...] parietal lobe. No acute ischemia. Reading Location: [id number] CC: Dr. Oscar Beckford DO; Dr. Malu Rowe MD ~ Supervisor Furnace Room: Signed [facility]07-11-2025 Instructions* Patient Instructions* Moises Pendleton MD [...] at a location closer to you in [place] with Dr. Caroline Johnson. The results will [...] if you choose to see her in [place]. Follow-up: - I will see you in [...] before your next visit. documented in this encounterSouth[facility]07-[facility]-2025 NoteHNO ID: [id number] Author: MOISES PENDLETON MD Service: ? Author Type: Physician Type: Progress Notes Filed: 02/11/2025 09:42 Note Text: [facility] New Patient Consult Note SERVICE DATE: [...] asymptomatic, left COPD (chronic obstructive pulmonary disease) ([facility]) Critical lower limb ischemia ([facility]) Essential hypertension History: home Norvasc, lisinopril Assessment: [...] aneurysm (HCC) Legally bl (more content not included)...[facility]07-11-2025 History of Present illness Narrative* Moises Pendleton MD - 02/11/2025 9:02 AM EDT Images from the original note were not included. [facility] New Patient Consult Note SERVICE DATE: [...] asymptomatic, left COPD (chronic obstructive pulmonary disease) ([facility]) Critical lower limb ischemia ([facility]) Essential hypertension History: home Norvasc, lisinopril Assessment: [...] 1.00 - 4.00 k/uL 2.62 2.21 Abs Whitley <0.87 k/uL 0.67 0.64 Abs Eosin <0.46 k/uL 0.07 <0.03 Abs Baso <0.11 k/uL 0.06 0.05 NRBC /100 WBC 0.0 0.0 Diagnostic Work Up: CT chest: Last CT/CTA Chest/Lungs CT CHEST WO IVCON Exam End: 11/01/2024 3:46 PM (Final result) Narrative: * * *Final Report* * * DATE OF EXAM: Nov 01 2024 3:46PM [facility] 0541 - CT CHEST WO [...] additional pulmonary nodules or suspect intrathoracic lymphadenopathy. Supervisor Furnace Room: TORY Transcribe Date/Time: Nov 10 2024 9:04A Dictated by : SHASHANK ALONZO MD This examination was interpreted and the report reviewed and electronically signed by: SHASHANK ALONZO MD on Nov 10 2024 9:19AM EST Chest xray: Heart echo: No results found for this or any previous visit (from the past [id number] hours). PFT: 05/09/2017 FVC 3.74 (101%) FEV1 [...] schedule, cancel, or change an appointment. Adults [phone] Pediatrics [phone] Should this patient be seen in a [...] be seen in a Pediatric Lab?: No [id number] (TRELEGY ELLIPTA) 200-62.5-25 mcg inhalation powder Sig: [...] which included preparing to see the patient, [id number] patient care, completing clinical documentation, obtaining and/or reviewing separately obtained history, performing a medically appropriate examination, counseling and educating the pat ient/family/caregiver, ordering medications, tests, or procedures, communicating with other HCPs (not separately reported), independently interpreting results (not separately reported), and communicating results to the patient/family/caregiver. Recording using Traka software for draft documentation of the visit was discussed with the patient/authorized congressional representative; all questions welcomed and answered. Patient/authorized congressional representative agreed to proceed SIGNATURE: Moises Pendleton MD PATIENT NAME: Denny Gomez DATE: February 11, 2025 TIME: 9:39 AM PAGER/CONTACT #: [phone] documented in [facility] Telephone encounter Note * Telephone Encounter - [...] to call pharmacy back. Lyn Matta RN [facility]06-25-2025 Miscellaneous Notes* Telephone Encounter - Lyn Matta [...] was going to call pharmacy back. Lyn Babulski, RN documented in this encounterSouth[facility]06-11-2025 History of Present illness Narrative* Elias Rider [...] 1 year with PSA [facility] Work Phone: 1(927) 109-466306-03-2025 Telephone encounter Note* Telephone Encounter - Constanza Delarosa RN - 01/04/2025 2:52 PM EDT Called and updated patient that Dr. Fang has not reviewed his imaging yet for his CT scan. Will reach back out to patient once scan is looked at by provider. Will forward to provider to review. Constanza Delarosa RN [facility]06-03-2025 Miscellaneous Notes* Telephone Encounter - Constanza Delarosa [...] Gomez, 1955). Yes Number to return call [phone] Reason for Call: Results: Results Calling office requesting result of CT scan test, completed on 12-31-24. Please call patient back at number above. Thank you calling [facility]. You will receive a return call within 48hours ( or 2 business days if close to the weekend). If you feel that this is an urgent issue and needs immediate attention, it is recommended that you contact your primary care provider office or proceed to your nearest Urgent Care Center of Emergency Room ED for evaluation/treatment. documented in this encounterSouth[facility]06-[facility]-2025 Telephone encounter Note * Telephone Encounter - Caitlyn Muñiz - 01/04/2025 2:07 PM EDT Patient calling again for CT results [facility] Telephone encounter Note* Telephone Encounter - Layne Riggins - 01/04/2025 12:05 PM EDT CV PHONE Name of caller : Mrs. Gomez Relationship to patient : Spouse If not self Will need patient permission to release results or disclose health information with called documented in fyi. Patient identified by Name and Date of . ( Denny Gomez, 1955). Yes Number to return call [phone] Reason for Call: Results: Results Calling office requesting result of CT scan test, completed on 12-31-24. Please call patient back at number above. Thank you calling [facility]. You will receive a return call within 48hours ( or 2 business days if close to the weekend). If you feel that this is an urgent issue and needs immediate attention, it is recommended that you contact your primary care provider office or proceed to your nearest Urgent Care Center of Emergency Room ED for evaluation/treatment. [facility] Work Phone: [phone] 802-651305-20-2025 NoteHNO ID: [id number] Author: Carolin FANG MD Service: ? Author Type: Physician Type: Progress Notes Filed: 12/23/2024 11:16 Note Text: [facility] (Patient previously seen by me, but not [...] asymptomatic, left COPD (chronic obstructive pulmonary disease) ([facility]) Critical lower limb ischemia ([facility]) Essential hypertension History: home Norvasc, lisinopril Assessment: [...] Use Topics Alcohol us (more content not included)...[facility]04-04-2025 Telephone encounter Note* Telephone Encounter - Nancy [...] (referring provider) Carlos A Kennedy MD in [facility] Has your referring provider recommended a specific [...] Out of state residents must be in [place] at the time of their virtual visit. In Person Specific day of the week or time of day? Any Time Do you prefer to be notified of your appointment by phone or [employer] Powerhart message? Phone Call (Betsey spouse) Thank you for speaking with me today. Your information will now be forwarded to our endovascular advance practice provider team to review and provide scheduling recommendations. Please allow 3 business days to hear back from us. If you do not, feel free to call back [phone] for an update. [facility]04-04-[facility] Miscellaneous Notes* Telephone Encounter - Nancy Benjamin [...] (referring provider) Carlos A Kennedy MD in [facility] Has your referring provider recommended a specific [...] Out of state residents must be in [place] at the time of their virtual visit. In Person Specific day of the week or time of day? Any Time Do you prefer to be notified of your appointment by phone or [employer] Powerhart message? Phone Call (Betsey spouse) Thank you for speaking with me today. Your information will now be forwarded to our endovascular advance practice provider team to review and provide scheduling recommendations. Please allow 3 business days to hear back from us. If you do not, feel free to call back [phone] for an update. documented in this encounterSouth[facility] Center04-04-2025 Telephone encounter Note * Telephone Encounter - Regla Adan RN - 11/05/2024 1:45 PM EDT Pt calling in for results of CXR. Notified of Dr. Rowe' response and instructions. In looking for CT scan order, pt already had CT completed on 11/01. [facility]04-04[facility] Miscellaneous Notes* Telephone Encounter - Regla Adan RN - 11/05/2024 1:45 PM EDT Pt calling in for results of CXR. Notified of Dr. Rowe' response and instructions. In looking for CT scan order, pt already had CT completed on 11/01. documented in this encounterSouthview [facility] Center04-04-2025 Telephone encounter Note * Telephone Encounter - Regla Adan RN - 11/05/2024 1:44 PM EDT Pt called in and notified of results of labs and Dr. Rowe' information and instructions. [facility]04-04-[facility] Miscellaneous Notes* Telephone Encounter - Regla Adan [...] salt substitutes with potassium. documented in this encounterSouthview Medical Center03-31-2025 History of Present illness Narrative* Reef Layne Hernandez, RT(R) - 11/01/2024 3:20 PM EDT Radiology [...] PATIENT PRESENTS WITH AN IMPLANTABLE OR ATTACHED IMMIGRATION ATTORNEY: No RADIOLOGY DEPARTMENT: CT; Exam(s) Completed: Chest PERIPHERAL IV DATA: Not applicable SIGNED BY: RT Kingsley(R) November 01, 2024 3:47 PM documented in this encounterSouthview Medical Center03-31-2025 NoteHNO ID: [id number] Author: LAYNE MARIO RT(Allison) Service: ? Author Type: Accounting System Expert Type: Progress Notes Filed: 11/01/2024 15:47 Note [...] PATIENT PRESENTS WITH AN IMPLANTABLE OR ATTACHED IMMIGRATION ATTORNEY: No RADIOLOGY DEPARTMENT: CT; Exam(s) Completed: Chest PERIPHERAL IV DATA: Not applicable SIGNED BY: RT Kingsley(R) November 01, 2024 3:47 [facility]CP[facility] Telephone encounter Note* Telephone Encounter - Ritika Meza - 11/01/2024 10:57 AM EDT Spoke with patient and scheduled. Ritika Meza [facility]03-31-2025 Miscellaneous Notes* Telephone Encounter - Ritika Meza [...] advise. Agapito Shaw LPN documented in this encounterSouthview Medical Center03-31-2025 Telephone encounter Note * Telephone Encounter - Zenobia Wiggins LPN - 11/01/2024 10:05 AM EDT Spoke with pt gave information provided. Pt voices understanding. Please assist with getting ct set up. [facility]03-30-[facility] Telephone encounter Note* Telephone Encounter - Malu [...] ordered for follow up on abnormal CXR. [facility]03-30-[facility] Telephone encounter Note* Telephone Encounter - Malu Rowe MD - 10/31/2024 5:42 PM EDT Labs are all normal except for potassium level was just slightly above normal at 5.2--no further evaluation or treatment needed for this. Would just avoid excess potassium intake, such as salt substitutes with potassium. [facility]03-28-2025 Telephone encounter Note* Telephone Encounter - Agapito Cutler LPN - 10/29/2024 9:19 AM EDT Pt calling for results of chest x-ray and labs. Pt had ov with pcp 10/27/24 please advise. Agapito Shaw LPN [facility]03-26-2025 History of Present illness Narrative* Vernell Stoddard [...] PATIENT PRESENTS WITH AN IMPLANTABLE OR ATTACHED IMMIGRATION ATTORNEY: No RADIOLOGY DEPARTMENT: General X-ray: Exam(s) Completed: Chest X-Ray PERIPHERAL IV DATA: Not applicable SIGNED BY: Brittny Shirley October 27, 2024 3:31 PM documented in this encounterSouthview Medical Center03-26-2025 NoteHNO ID: [id number] Author: VERNELL STODDARD Tech Service: ? Author [...] PATIENT PRESENTS WITH AN IMPLANTABLE OR ATTACHED IMMIGRATION ATTORNEY: No RADIOLOGY DEPARTMENT: General X-ray: Exam(s) Completed: Chest X-Ray PERIPHERAL IV DATA: Not applicable SIGNED BY: Brittny Shirley October 27, 2024 3:31 [facility]03-26-2025 Instructions* Patient Instructions* Malu Rowe MD - [...] drinks like milkshakes or nutritional supplements like [place] Instant Breakfast if you have difficulty increasing [...] appointment in 6 months. documented in this encounterSouthview Medical Center03-26-2025 NoteHNO ID: [id number] Author: MALU ROWE MD Service: ? Author Type: Physician Type: Progress Notes Filed: 10/27/2024 15:11 Note Text: This note was created using [email or web address]. Subjective Denny Gomez is a 69 year [...] MEDICAL HISTORY Diagnosis Date Abnormal hemoglobin (Hgb) ([facility]) 04/07/2020 Hx: POD2 labs with drop in hemoglobin to 8.4 from baseline 10.6; transfused 1u PRBC POD2 A: asymptomatic, no associated tachycardia or hypotension P: f/u AM CBC Adenocarcinoma of prostate ([facility]) 03/25/2023 Anxiety and depression BPH (benign prostatic hyperplasia) Carotid artery stenosis, asymptomatic, left COPD (chronic obstructive pulmonary disease) ([facility]) Critical lower limb ischemia ([facility]) Essential hypertension History: home Norvasc, lisinopril Assessment: [...] intubated and sedated Plan[place] Recurrent depressive disorder, in remission (HCC) 02/26/2021 [...] 60.9 68.3 Abs Ne (more content not included)...[facility]03-26-2025 History of Present illness Narrative* Malu Rowe MD - 10/27/2024 2:49 PM EDT Images from the original note were not included. This note was created using [email or web address]. Subjective Denny Gomez is a 69 year [...] P: f/u AM CBC Adenocarcinoma of prostate ([facility]) 03/25/2023 Anxiety and depression BPH (benign prostatic hyperplasia) Carotid artery stenosis, asymptomatic, left COPD (chronic obstructive pulmonary disease) ([facility]) Critical lower limb ischemia ([facility]) Essential hypertension History: home Norvasc, lisinopril Assessment: [...] intubated and sedated Plan[place] Recurrent depressive disorder, in remission ([facility]) 02/26/2021 Stable on citalopram Stroke (cerebrum) ([facility]) Subdural hematoma ([facility]) 2019 Unspecified essential hypertension Essential hypertension Current [...] Lymph 1.00 - 4.00 k/uL 2.62 2.21 Whitley% % 7.6 6.9 Abs Whitley <0.87 k/uL 0.67 0.64 Eosin% % 0.8 [...] unable to increase food volume, such as [place] Instant Breakfast or milkshakes. - Follow-up appointment [...] ifneeded. Malu Rowe MD documented in this encounterSouth[facility] Center02-25-2025 Telephone encounter Note * Telephone Encounter - Estee Carmen LPN - 09/28/2024 8:24 AM EST Patient notified, verbalized understanding. Estee Carmen LPN [facility]02-25-2025 Telephone encounter Note* Telephone Encounter - Estee Carmen LPN - 09/28/2024 8:24 AM EST ----- Message from Art Donovan MD sent at 09/28/2024 7:30 AM EST ----- Negative viral panel. [facility]02-25-20[facility] Miscellaneous Notes* Telephone Encounter - Estee Carmen [...] ----- Negative viral panel. documented in this encounterSouthview Medical Center02-25-2025 Telephone encounter Note * Telephone Encounter - Estee Carmen LPN - 09/28/2024 8:20 AM EST ----- Message from Art Donovan MD sent at 09/28/2024 7:30 AM EST ----- Negative viral panel. [facility]02-24-2025 [id number] (AGENT OF COVID-19) RNA: Not detected INFLUENZA A RNA: Not detected INFLUENZA B RNA: Not detected RESPIRATORY SYNCYTIAL VIRUS (RSV) RNA: Not detectedCleveland Clinic FoundationComment on above:Performed By: #### [id number] ####[facility] LABCLIA [id number] [place] [id number] [place] [id number] Instructions* Patient Instructions* Art Donovan MD - [...] days, such as taking additions steps for venetian blind cleaner and repairer air, hygiene, masks, physical distancing, and or testing when you will be around other people indoors. For more information go to https://www.cdc.gov/respiratory-viruses/prevention/index.html documented in this encounterSouthview Medical Center02-24-2025 NoteHNO ID: [id number] Author: ART DONOVAN MD Service: ? Author Type: Physician Type: Progress Notes Filed: 09/27/2024 20:07 Note Text: This note was created using [employer]. Subjective Patient presents with: Cough Nasal Congestion [...] Artery Stenosis Pad (Peripheral Artery Disease) ([facility]) S/P Carotid Endarterectomy H/O Ischemic Left Mca Stroke Intracranial Atherosclerosis Atherosclerosis of Qu[place]ult Artery of Extremity With Intermittent Claudication ([facility]) Vitamin D Deficiency Primary Open Angle Glaucoma (Poag) of Right Eye, Moderate Stage Primary Open Angle Glaucoma (Poag) of Left Eye, Moderate Stage Hypercholesteremia Status Post Cataract Extraction and Insertion of Intraocular Lens of Left Eye Status Post Cataract Extraction and Insertion of Intraocular Lens of Right Eye Aortoiliac Occlusive Disease ([facility]) Aneurysm of Ophthalmic Artery Adenocarcinoma of Prostate ([facility]) Chronic Obstructive Pulmonary Disease, Unspecified Copd Type ([facility]) Social History Tobacco Use Smoking status: Every [...] ICD9: 496, ICD10: J44.9 Stable. Art Donovan [facility]02-24-2025 History of Present illness Narrative* Art Donovan [...] Artery Stenosis Pad (Peripheral Artery Disease) ([facility]) S/P Carotid Endarterectomy H/O Ischemic Left Mca Stroke Intracranial Atherosclerosis Atherosclerosis of Quinault Artery of Extremity With Intermittent Claudication ([facility]) Vitamin D Deficiency Primary Open Angle Glaucoma (Poag) of Right Eye, Moderate Stage Primary Open Angle Glaucoma (Poag) of Left Eye, Moderate Stage Hypercholesteremia Status Post Cataract Extraction and Insertion of Intraocular Lens of Left Eye Status Post Cataract Extraction and Insertion of Intraocular Lens of Right Eye Aortoiliac Occlusive Disease ([facility]) Aneurysm of Ophthalmic Artery Adenocarcinoma of Prostate ([facility]) Chronic Obstructive Pulmonary Disease, Unspecified Copd Type ([facility]) Social History Tobacco Use Smoking status: Every [...] Stable. Art Donovan MD documented in this encounterSouthview Medical Center02-10-2025 Instructions* Patient Instructions* Massiel Harrell MD - 09/13/2024 2:48 PM EST If you have any questions please contact our office at [phone]. After office hours or on the weekend, please call Dr. Harrell on his cell phone at [phone]. documented in this encounterSouthview Medical Center02-10-2025 NoteHNO ID: [id number] Author: MASSIEL HARRELL MD Service: ? Author [...] others. I have seen and examined Denny Jason. I have discussed the case and the management of this patient's care with the Resident/Fellow, if applicable. I also have reviewed and agree with the assessment and plan as stated above and agree with all of its relevant components.[facility]02-10-2025 History of Present illness Narrative* Massiel Harrell [...] of its relevant components. documented in this encounterSouthview Medical Center02-10-2025 NoteDate of Procedure 09/13/2024. Accounting System Expert Information Blacktop Paver Operator: RE. Reliability Right Eye Good. Left Eye Good. Interpretation Right Eye Homonymous hemianopsia. Left Eye Homonymous hemianopsia. Interval Change Right Eye Stable. Left Eye Stable.[id number] NoteHNO ID: [id number] Author: CARLOS A KENNEDY MD Service: ? Author Type: Physician Type: Progress Notes Filed: 07/20/2024 08:22 Note Text: [facility] [place] DEPARTMENT OF VASCULAR SURGERY OUTPATIENT VISIT DATE [...] reports being instructed to stop by his river tester. He is currently smoking, unfortunately his has cancer and he has been smoking more with the stress of this. He has a history of a 5mm intracranial aneurysm that he has not had surveillance on since 2020. PAST MEDICAL HISTORY Diagnosis Date Abnormal hemoglobin (Hgb) ([facility]) 04/07/2020 Hx: POD2 labs with drop in hemoglobin to 8.4 from baseline 10.6; transfused 1u PRBC POD2 A: asymptomatic, no associated tachycardia or hypotension P: f/u AM CBC Anxiety and depression BPH (benign prostatic hyperplasia) Carotid artery stenosis, asymptomatic, left COPD (chronic obstructive pulmonary disease) ([facility]) Critical lower limb ischemia ([facility]) Intracerebral aneurysm Legally blind 2019 R eye (had a stroke in that eye) Mixed hyperlipidemia Hyperlipidemia Occlusion of right carotid artery 01/30/[address] Lukasz Beasley Paget disease of bone Stroke (cerebrum) ([facility]) Subdural hematoma (HCC) 2018 Unspecified essential hypertension [...] is noted on t (more content not included)...[facility]12-16-2024 History of Present illness Narrative* Carlos A Kennedy MD - 07/19/2024 3:30 PM EST Images from the original note were not included. [facility] [place] DEPARTMENT OF VASCULAR SURGERY OUTPATIENT VISIT DATE [...] reports being instructed to stop by his river tester. He is currently smoking, unfortunately his has cancer and he has been smoking more with the stress of this. He has a history of a 5mm intracranial aneurysm that he has not had surveillance on since 2020. PAST MEDICAL HISTORY Diagnosis Date Abnormal hemoglobin (Hgb) ([facility]) 04/07/2020 Hx: POD2 labs with drop in hemoglobin to 8.4 from baseline 10.6; transfused 1u PRBC POD2 A: asymptomatic, no associated tachycardia or hypotension P: f/u AM CBC Anxiety and depression BPH (benign prostatic hyperplasia) Carotid artery stenosis, asymptomatic, left COPD (chronic obstructive pulmonary disease) ([facility]) Critical lower limb ischemia ([facility]) Intracerebral aneurysm Legally blind 2019 R eye (had a stroke in that eye) Mixed hyperlipidemia Hyperlipidemia Occlusion of right carotid artery 01/30/[address] Lukasz Beasley Paget disease of bone Stroke (cerebrum) ([facility]) Subdural hematoma ([facility]) 2018 Unspecified essential hypertension Essential hypertension PAST [...] cerebrovascular neurology for intracranial aneurysm follow up [facility] STAFF PHYSICIAN NOTE OF PERSONAL INVOLVEMENT IN [...] 8:21 AM SIGNATURE: Carlos A Kennedy MD, MD PATIENT NAME: Denny Gomez DATE: July 19, 2024 TIME: 3:30 PM documented in this encounterSouthview [facility] Center12-04-2024 History of Present illness Narrative* Elias Rider [...] 6 months with PSA documented in this [facility] Work Phone: [phone]) 355-244810-09-2024 Instructions* Patient Instructions* Vidal Christie APRN.DEVICE REPAIR TECHNICIAN - 05/12/2024 10:55 AM EDT How to [...] or concerning to you. documented in this encounterSouthview Medical Center10-09-2024 History of Present illness Narrative* Vidal Christie [...] MEDICAL HISTORY Diagnosis Date Abnormal hemoglobin (Hgb) ([facility]) 04/07/2020 Hx: POD2 labs with drop in hemoglobin to 8.4 from baseline 10.6; transfused 1u PRBC POD2 A: asymptomatic, no associated tachycardia or hypotension P: f/u AM CBC Anxiety and depression BPH (benign prostatic hyperplasia) Carotid artery stenosis, asymptomatic, left COPD (chronic obstructive pulmonary disease) ([facility]) Critical lower limb ischemia ([facility]) Intracerebral aneurysm Legally blind 2019 R eye (had a stroke in that eye) Mixed hyperlipidemia Hyperlipidemia Occlusion of right carotid artery 01/30/[address] Lukasz Beasley Paget disease of bone Stroke (cerebrum) ([facility]) Subdural hematoma ([facility]) 2019 Unspecified essential hypertension Essential hypertension PAST [...] of care. This note was generated using Formula XO software. It may contain errors in wording, punctuation, or spelling. Vidal Christie APRN.GRICEL documented in this encounterSouthview Medical Center10-01-2024 Telephone encounter Note * Telephone Encounter - Liliana Eller LPN - 05/04/2024 2:38 PM EDT Phoned patient went over results from Kesha Boone GLASS UNLOADING EQUIPMENT TENDER with understanding. [facility] Miscellaneous Notes* Telephone Encounter - Liliana Eller LPN - 05/04/2024 2:38 PM EDT Phoned patient went over results from Kesha Boone GLASS UNLOADING EQUIPMENT TENDER with understanding. * Telephone Encounter - Liliana Eller LPN - 05/04/2024 2:36 PM EDT ----- Message from Kesha Davis APRN.ABALONE PROCESSOR sent at 05/04/2024 2:05 PM EDT ----- Please let him know FOBT was negative documented in this encounterSouthview Medical Center10-01-2024 Telephone encounter Note * Telephone Encounter - Liliana Eller LPN - 05/04/2024 2:36 PM EDT ----- Message from Kesha Davis APRN.CNS sent at 05/04/2024 2:05 PM EDT ----- Please let him know FOBT was negative [facility] Tele[facility] encounter Note* Telephone Encounter - Liliana Eller LPN - 04/30/2024 12:37 PM EDT Phoned patient went over results, notes from Kesha Boone GLASS UNLOADING EQUIPMENT TENDER with understanding. [facility] Miscellaneous Notes* Telephone Encounter - Liliana Eller LPN - 04/30/2024 12:37 PM EDT Phoned patient went over results, notes from Kesha Boone GLASS UNLOADING EQUIPMENT TENDER with understanding. * Telephone Encounter - Liliana Eller LPN - 04/30/2024 12:35 PM EDT ----- Message from Kesha Davis APRN.ABALONE PROCESSOR sent at 04/30/2024 7:34 AM EDT ----- Please let him know that all of his lab work was within normal limits. documented in this encounterSouthview Medical Center09-27-2024 Telephone encounter Note * Telephone Encounter - Liliana Eller LPN - 04/30/2024 12:35 PM EDT ----- Message from Kesha Davis APRN.ABALONE PROCESSOR sent at 04/30/2024 7:34 AM EDT ----- Please let him know that all of his lab work was within normal limits. [facility] Instructions* Patient Instructions* Christine Greene MD - 04/30/2024 12:02 PM EDT Please cut down Vit D3 to 1000 units daily Continue to take adequate calcium through a combination of diet and supplements documented in this encounterSouthview Medical Center09-27-2024 History of Present illness Narrative* Christine Greene MD - 04/30/2024 11:56 AM EDT [facility] Follow up note Consulted by: Kesha Boone APRN.ABALONE PROCESSOR Chief Complaint: Weight loss HPI: This is [...] Level: 4 - Moderate Christine Greene MD [facility] Endocrinology and Metabolism [place] [phone] documented in this encounter[facility] Telephone encounter Note * Telephone Encounter - Kesha Boone APRN.CNS - 04/30/2024 7:28 AM EDT noted [facility] Miscellaneous Notes* Telephone Encounter - Kesha Boone APRN.CNS - 04/30/2024 7:28 AM EDT noted * Telephone Encounter - Elena Crane LPN - 04/29/2024 12:31 PM EDT Patient notified of providers message and verbalized understanding. Patient is declining any appointment regarding memory but will schedule with Dr. Greene Endocrinology. [facility] to[facility]ist [facility] in scheduling. * Telephone Encounter - Kesha Boone APRN.CNS - 04/29/2024 12:02 PM EDT On review of chart I see that he is due for an endocrinology visit in June with Dr. Greene. Please schedule. Previously noted that there was aneed for more in-depth memory testing or an appointment with command and control officer if he continues to note memory difficulties. Dr Cline geriatrics or memory testing recommended, schedule if willing. documented in this encounterSouth[facility]09-[facility]24 Telephone encounter Note * Telephone Encounter - Elena Crane LPN - 04/29/2024 12:31 PM EDT Patient notified of providers message and verbalized understanding. Patient is declining any appointment regarding memory but will schedule with Dr. Greene Endocrinology. Encounter [facility]ist [facility] in scheduling. [facility] Telephone encounter Note* Telephone Encounter - Kesha Boone APRN.CNS - 04/29/2024 12:02 PM EDT On review of chart I see that he is due for an endocrinology visit in June with Dr. Greene. Please schedule. Previously noted that there was aneed for more in-depth memory testing or an appointment with command and control officer if he continues to note memory difficulties. Dr Son pratts or memory testing recommended, schedule if willing. [facility] History of Present illness Narrative* Kesha Boone [...] Left Mca Stroke Intracranial Atherosclerosis Atherosclerosis of Quinault Artery of Extremity With Intermittent Claudication (Hcc) [...] Chronic Obstructive Pulmonary Disease, Unspecified Copd Type (Hcc) Presents today for routine follow-up visit. Notes he is generally in his usual state of health. Reports eating and drinking normally, noting weight is decreased. Review of trends show 4 pound weight loss over [address] Kennedy vascular surgery for carotid artery and PAD.Has upcoming appointment. Has urologist in [place] that he has been following with for [...] edema, orthopnea, fatigue or PND. Going to [facility]. Last 14 Encounter BP Readings: [...] asymptomatic, left COPD (chronic obstructive pulmonary disease) ([facility]) Critical lower limb ischemia ([facility]) Intracerebral aneurysm Legally blind 2019 R eye (had a stroke in that eye) Mixed hyperlipidemia Hyperlipidemia Occlusion of right carotid artery 01/30/[address] Lukasz Beasley Paget disease of bone Stroke (cerebrum) ([facility]) Subdural hematoma ([facility]) 2018 Unspecified essential hypertension Essential hypertension Social [...] ICD10: C[address] Rider urology [place] 6. Paget's bone disease - ICD9: 731.0, [...] immunization - ICD9: V03.89, ICD10: Z23 - [employer] COVID-19 VACCINE AGE 12+ YR (COMIRNATY) - INFLUENZA VACCINE, PRSV FREE, AGE 65+ YR, HIGH DOSE, TRIVALENT (FLUZONE HIGH-DOSE) - [employer] PRINTED PHARMACY INSTRUCTIONS 13. Chronic obstructive pulmonary disease, unspecified COPD type (HCC) - ICD9: 496, ICD10: J44.9 Stable, currently controlled, continue to monitor. - [id number] - COMPREHENSIVE METABOLIC PANEL - COMPLETE BLOOD COUNT AND DIFFERENTIAL 14. 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 Memory difficulties - ICD9: 780.93, ICD10: R41.3 Recommend neuropsychiatric testing or geriatric appointment, does not appear this has been completed yet. Recommend he schedule appointment with arts and humanities council director. Also complete either neuropsychiatric testing or geriatric visit Dr Cline per his preference for decreased memory. Kesha Boone APRN.ABALONE PROCESSOR Medical Decision Making: Problems: Moderate: 2+ stable chronic illnesses Data: Unique test(s) ordered: 3+ Risk: Moderate: Drug management Medical Decision Making Level: 4 - Moderate documented in this encounterSouth[facility] Center08-27-[facility]24 Telephone encounter Note * Telephone Encounter - Lexis Villanueva - 03/30/2024 2:01 PM EDT Reason for call: Mr Gomez called and he would like to schedule an appointment with DR omaira Loredo and cell number [phone] Diagnosis s/p carotid endarteroctomy Kind Regards Lexis [facility]08-[facility] Miscellaneous Notes* Telephone Encounter - Lexis Villanueva - 03/30/2024 2:01 PM EDT Reason for call: Mr Gomez called and he would like to schedule an appointment with DR omaira Loredo and cell number [phone] Diagnosis s/p carotid endarteroctomy Kind Regards Lexis documented in this encounterSouthview Medical Center08-26-2024 Instructions* Patient Instructions* Massiel Harrell MD - 03/29/2024 1:41 PM EDT If you have any questions please contact our office at [phone]. After office hours or on the weekend, please call Dr. Harrell on his cell phone at [phone]. documented in this encounterSouthview Medical Center08-26-2024 NoteDate of Procedure 03/29/2024. Quality Right Eye Good. Left Eye Good. NFL Interpretation Right Eye Superior loss, Temporal loss, Inferior loss. Left Eye Superior loss. Ganglion Cell Layer Thickness Right Eye Diffuse loss. Left Eye Superior loss, Inferior loss, Temporal loss. Interval Change Right Eye Stable. Left Eye Stable.[id number] History of Present illness Narrative* Massiel Harrell [...] of its relevant components. documented in this encounterSouthview Medical Center04-29-2024 Telephone encounter Note * Telephone Encounter - Félix Rosales - 12/01/2023 4:18 PM EDT I reviewed the patient on the 1st-time treatment report. The patient does not have a cancer diagnosis or a chemo/radiation regimen. No further Financial Navigator intervention is needed at this time. [facility] Miscellaneous Notes* Telephone Encounter - Félix Rosales - 12/01/2023 4:18 PM EDT I reviewed the patient on the 1st-time treatment report. The patient does not have a cancer diagnosis or a chemo/radiation regimen. No further Financial Navigator intervention is needed at this time. documented in this encounterSouthview Medical Center03-25-2024 History of Present illness Narrative* Malu Rowe MD - 10/27/2023 11:31 AM EDT This note was created using [employer]. Subjective Denny Gomez is a 68 year [...] Beasley Paget disease of bone Stroke (cerebrum) ([facility]) Subdural hematoma ([facility]) 2019 Unspecified essential hypertension Essential hypertension Current [...] Z23 - [employer] PRINTED PHARMACY INSTRUCTIONS - [employer] COVID-19 VACCINE (2022- SEASON) AGE 12+ YR No problem-specific Assessment & Plan notes found for this encounter. Malu Rowe MD documented in this encounterSouthview Medical Center02-16-2024 Miscellaneous Notes* Telephone Encounter - Paige Banda [...] Thank you. Paige Banda. documented in this encounterSouthview Medical Center12-08-2023 History of Present illness Narrative* Frank Cano CNP - 07/11/2023 2:06 PM EST Consult not completed, patient [facility] Greene 07/01/23. Will defer to their office for follow up. documented in this [id number] Miscellaneous Notes* Telephone Encounter - Irlanda Canela [...] Rowe is wanting to know if Dr. Riedr is managing results of CT scan dated 04/23/2023. Is he making referral for evaluation to rule out metastases or adrenal nodule work up? documented in this encounterSouthview Medical Center10-09-2023 Miscellaneous Notes* Telephone Encounter - Estee Carmen LPN - 05/12/2023 11:55 AM EDT Appt scheduled w/[facility], 06/12/2023 Estee Carmen LPN * Telephone Encounter - Nathaly Díaz - 05/03/2023 11:46 AM EDT 1st attempt * Telephone Encounter - Kesha Boone APRN.CNS - 05/02/2023 4:09 PM EDT Right upper quadrant ultrasound showed mildly coarsened texture of liver. Renal cysts. No gallstones. Recommend he schedule appointment with arts and humanities council director if he is not already done so. [...] No mass lesion identified documented in this encounterSouthview Medical Center09-28-2023 History of Present illness Narrative* Fidelina Kimball RDMS - 05/01/2023 11:30 AM EDT Radiology [...] 01, 2023 11:55 AM documented in this encounterSouthview Medical Center09-26-2023 Instructions* Patient Instructions* Massiel Harrell MD - 04/29/2023 9:58 AM EDT Continue: Systane Complete solution instill 1 drop 3 times daily Both Eyes. See Dr. Isidra Kelsey for refraction and glasses If you have any questions please contact our office at [phone]. After office hours or on the weekend, please call Dr. Harrell on his cell phone at [phone]. documented in this encounterSouthview Medical Center09-26-2023 History of Present illness Narrative* Massiel Harrell [...] options. Massiel Harrell MD documented in this encounterSouthview Medical Center09-22-2023 Instructions* Patient Instructions* Kesha Boone APRN.CNS - 04/25/2023 11:18 AM EDT Continue to follow-up with Dr. Rider regarding your prostate. Schedule an appointment with the arts and humanities council director. Complete memory test. Complete right upper quadrant ultrasound. 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 ([facility]) Iliac Artery Injury, Left, Initial Encounter Facial Swelling Vitamin D Deficiency Recurrent Depressive Disorder, in Remission ([facility]) Primary Open Angle Glaucoma (Poag) of Right Eye, Moderate Stage Primary Open Angle Glaucoma (Poag) of Left Eye, Moderate Stage Hypercholesteremia Status Post Cataract Extraction and Insertion of Intraocular Lens of Left Eye Status Post Cataract Extraction and Insertion of Intraocular Lens of Right Eye Aortoiliac Occlusive Disease ([facility]) 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 Has urologist in [place] that he has been following with for BPH. Dr. Rider. Continues with alendronate for history disease of the bone. No arts and humanities council director. Follows with eye doctor following decreased vision [...] edema, orthopnea, fatigue or PND. Going to [facility]. Last 14 Encounter BP Readings: [...] MEDICAL HISTORY Diagnosis Date Abnormal hemoglobin (Hgb) ([facility]) 04/07/2020 Hx: POD2 labs with drop in [...] Beasley Paget disease of bone Stroke (cerebrum) ([facility]) Subdural hematoma (HCC) 2019 Unspecified essential hypertension [...] acceptable range. Recommend he schedule appointment with arts and humanities council director, plans to do this [facility]. Referral has already been sent - XR CHEST 2V FRONTAL/LAT - TSH BLD - COMP METABOLIC PANEL - CBC + DIFF - PSA/PROSTSPECAG SCRN No concerning findings on chest x-ray. Alkaline phosphatase is elevated. PSA within normal limits TSH within normal limits vitamin D within normal limits A1c within normal limits. Would recommend arts and humanities council director visit if willing. Consult has been placed, schedule. Recommend neuropsychiatric testing or referral to command and control officer due to memory loss noted at home andalso documented here. Not yet scheduled. 6 mo follow up Malu Rowe MD if willing Kesha Boone APRN.CNS Medical Decision Making: Medical Decision Making Level: 1 - N/A documented in this encounterSouthview Medical Center09-14-2023 Miscellaneous Notes* Telephone Encounter - Isidra Diaz - 04/17/2023 11:25 AM EDT Phoned patient to advised him that Janeen Cioce does not treat weight loss. Spoke with Betsey( spouse) and advised her to call [phone] to schedule with another endocrinology provider. She is awaresupae is an incoming provider but we are not scheduling with her yet. Isidra Diaz MA documented in this encounterSouthview Medical Center08-28-2023 Miscellaneous Notes* Telephone Encounter - Kesha Boone [...] limits A1c within normal limits. Would recommend arts and humanities council director visit if willing. Consult has been placed, schedule. Recommend neuropsychiatric testing or referral to command and control officer due to memory loss noted at home andalso documented here. Not yet scheduled. documented in this encounterSouthview Medical Center08-22-2023 History of Present illness Narrative* Deepti Davenport [...] IV DATA: Not applicable SIGNED BY: RT Erik(Allison) March 25, 2023 4:17 PM documented in this encounterSouthview Medical Center08-22-2023 Miscellaneous Notes* Result Encounter Note - Kesha Boone APRN.CNS - 03/25/2023 4:20 PM EDT No concerning findings on chest x-ray. Alkaline phosphatase is elevated. PSA within normal limits TSH within normal limits vitamin D within normal limits A1c within normal limits. documented in this encounterSouthview Medical Center08-22-2023 Progress note* Result Encounter Note - Kesha Boone APRN.CNS - 03/25/2023 4:20 PM EDT No concerning findings on chest x-ray. Alkaline phosphatase is elevated. PSA within normal limits TSH within normal limits vitamin D within normal limits A1c within normal limits. 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 Has urologist in [place] that he has been following with for BPH. Dr. Rider. Continues with alendronate for history disease of the bone. No arts and humanities council director. Follows with eye doctor following decreased vision [...] Beasley Paget disease of bone Stroke (cerebrum) ([facility]) Subdural hematoma (HCC) 2019 Unspecified essential hypertension [...] Labs today 1 mo recheck Kesha Boone APRN.ABALONE PROCESSOR 3 mo follow up Malu Rowe MD if willing Kesha Boone APRN.ABALONE PROCESSOR Medical Decision Making: Problems: Moderate: New problem with uncertain prognosis and 2+ stable chronic illnesses Data: Unique test(s) ordered: 3+ Risk: Moderate: Drug management Medical Decision Making Level: 4 - Moderate documented in this encounterSouthview Medical Center07-28-2023 History of Present illness Narrative* Cele Campbell - 02/28/2023 2:51 PM EDT POPULATION HEALTH NAVIGATION OUTREACH Action/I HCC Gaps Due; F33.40 - Recurrent depressive disorder, in remission (HCC) - [id number] Last Billed 08/30/2021
[employer] Care Gaps Due; [...] Outreach HCC or suspected condition Payer: Payor: HU[employer]NA MEDICARE / Plan: HU[employer]NA [...] 28, 2023 3:05 PM documented in this encounterSouthview Medical Center06-20-2023 History of Present illness Narrative* Carlos A Kennedy MD - 01/21/2023 11:58 AM EDT Images from the original note were not included. Heart , Vascular and Thoracic [place] DEPARTMENT OF VASCULAR SURGERY OUTPATIENT VISIT DATE January 21, 2023 OUTPATIENT VISIT TYPE ESTABLISHED SERVICE DATE: 01/21/2023 SERVICE TIME: 11:58 AM PRIMARY CARE PHYSICIAN: Kesha Boone APRN.ABALONE PROCESSOR HISTORY OF PRESENT ILLNESS: Mr. Gomez is [...] smoking cessation and the risks of stroke, [place], and limb loss among the problems that [...] 2023 TIME: 11:58 AM documented in this encounterSouthview Medical Center06-20-2023 History of Present illness Narrative* Sherif Albrecht [...] January 21, 2023 TIME: 9:38 AM * RT Gabriella(R) - 01/21/2023 9:45 AM EDT Radiology Service [...] 21, 2023 10:24 AM documented in this encounterSouthview Medical Center06-20-2023 History of Present illness Narrative* Kellie Fontenot [...] 21, 2023 9:11 AM documented in this encounterSouthview Medical Center05-03-2023 Miscellaneous Notes* Telephone Encounter - Marley Sebastian - 12/04/2022 2:13 PM EDT Spoke to patient and rescheduled 01/17/[address] Kennedy on 01/21/23. Patient aware of time, date, and location with mailed reminder at the request of the patient. documented in this encounterSouthview Medical Center04-17-2023 Miscellaneous Notes* Telephone Encounter - Yolanda Perez [...] notify patient. Rachana Trejo documented in this encounterSouthview Medical Center04-10-2023 Instructions* Patient Instructions* Massiel Harrell MD - [...] any questions please contact our office at [phone]. After office hours or on the weekend, please call Dr. Harrell on his cell phone at [phone]. documented in this encounterSouthview Medical Center04-10-2023 History of Present illness Narrative* Massiel Harrell [...] diagnosis, and treatment options. documented in this encounterSouthview Medical Center04-07-2023 Instructions* Patient Instructions* Massiel Harrell MD - [...] any questions please contact our office at [phone]. After office hours or on the weekend, please call Dr. Harrell on his cell phone at [phone]. documented in this encounterSouthview Medical Center04-07-2023 History of Present illness Narrative* Massiel Harrell [...] diagnosis, and treatment options. documented in this encounterSouthview Medical Center04-06-2023 NotePost Operative Note: Post-Procedure Diagnosis: 1. Primary Open Angle Glaucoma Left eye, Moderate Stage 2. 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 Cataract Extraction with Intraocular Lens Implant Left Eye with Hydrus Microstent 2. Canaloplasty Left Eye using OMNI Surgical System Surgeon: Massiel Harrell MD Resident/Fellow/Other Scale Model Maker: None Estimated Blood Loss (mL): none Specimen: [...] Completion Last Updated: 07-Nov-2022 10:02 by Massiel Harrell)[facility] 11-07-2022 Miscellaneous Notes* Op Note - Massiel Harrell MD - 11/07/2022 9:55 AM EDT Post Operative Note: Post-Procedure Diagnosis: 1. Primary Open Angle Glaucoma Left eye, Moderate Stage 2. 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 Cataract Extraction with Intraocular Lens Implant Left Eye with Hydrus Microstent 2. Canaloplasty Left Eye using OMNI Surgical System Surgeon: Massiel Harrell MD Resident/Fellow/Other Scale Model Maker: None Estimated Blood Loss (mL): none Specimen: [...] 10:02 by Massiel Harrell) documented in this [facility] Work Phone: 1(203) 175-309804-06-2023 Note* Op Note - Massiel Harrell MD - 11/07/2022 9:55 AM EDT Post Operative Note: Post-Procedure Diagnosis: 1. Primary Open Angle Glaucoma Left eye, Moderate Stage 2. 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 Cataract Extraction with Intraocular Lens Implant Left Eye with Hydrus Microstent 2. Canaloplasty Left Eye using OMNI Surgical System Surgeon: Massiel Harrell MD Resident/Fellow/Other Scale Model Maker: None Estimated Blood Loss (mL): none Specimen: [...] Last Updated: 07-Nov-2022 10:02 by Massiel Harrell) [facility] Work Phone: 1(408) 383-544604-06-2023 NoteHistory & Physical Reviewed: I have reviewed [...] Completion Last Updated: 07-Nov-2022 07:34 by Massiel Harrell)[facility] 11-07-2022 History and physical note* Massiel Harrell [...] Last Updated: 07-Nov-2022 07:34 by Massiel Harrell) [facility] Work Phone: [phone]) 221-567904-06-2023 History and physical note* Massiel Harrell MD [...] 07:34 by Massiel Harrell) documented [facility] this [facility]Pro[facility] Work Phone: 1(124) 831-186103-27-2023 Instructions* Patient Instructions* Massiel Harrell MD - [...] any questions please contact our office at [phone]. After office hours or on the weekend, please call Dr. Harrell on his cell phone at [phone]. documented in this encounterSouthview Medical Center03-27-2023 History of Present illness Narrative* Massiel Harrell [...] options. Massiel Harrell MD documented in this encounterSouthview Medical Center03-24-2023 Miscellaneous Notes* Telephone Encounter - Isidra Whitaker Castro Pss - 10/25/2022 3:35 PM EDT Pharmacy verified in [facility] Patient has been identified by name and [...] 69.9 kg (154 lb) Please advise. Isidra Whitaker Castro Pss documented in this encounterSouthview Medical Center02-27-2023 Instructions* Patient Instructions* Massiel Harrell MD - [...] any questions please contact our office at [phone]. After office hours or on the weekend, please call Dr. Harrell on his cell phone at [phone]. documented in this encounterSouthview Medical Center02-27-2023 History of Present illness Narrative* Massiel Harrell [...] technical staff.I have seen and examined Denny Jason. I have discussed the examination findings, diagnosis, and treatment options with Denny Gomez and/or his family. I have also reviewed and agree with the assessment and plan as stated above and agree with all its relevant components. I gave the patient the opportunity to ask questions about the findings, diagnosis, and treatment options. documented in this encounterSouthview Medical Center02-23-2023 NotePost Operative Note: Post-Procedure Diagnosis: 1. Combined Form Age Related Cataract Right Eye 2. Primary Open Angle Glaucoma Right Eye, Moderate Stage Procedure: 1. Cataract Extraction with Intraocular Lens Implant Right Eye with Hydrus Microstent Implant 2. Canaloplasty Right Eye using OMNI surgical system Surgeon: Massiel Harrell MD Resident/Fellow/Other Scale Model Maker: None Estimated Blood Loss (mL): none Specimen: [...] Completion Last Updated: 26-Sep-2022 11:00 by Massiel Harrell)[facility] 09-26-2022 NoteHistory & Physical Reviewed: I have [...] Completion Last Updated: 26-Sep-2022 08:32 by Massiel Harrell)[facility] 08-30-2022 History of Past illness Narrative* Problem [...] of this encounter (statuses as of 10/01/2022) [facility] of [facility] Narrative* Problem Noted [...] of this encounter (statuses as of 10/28/2022) [facility] of Past illness Narrative* Problem Noted [...] of this encounter (statuses as of 10/28/2022) [facility] of Past illness Narrative* Problem Noted [...] of this encounter (statuses as of 11/08/2022) [facility] of [facility] illness Narrative* Problem Noted [...] of this encounter (statuses as of 11/11/2022) [facility] of [facility] illness Narrative* Problem Noted [...] of this encounter (statuses as of 11/18/2022) [facility] of Past illness Narrative* Problem Noted [...] of this encounter (statuses as of 12/04/2022) [facility] of Past illness Narrative* Problem Noted [...] of this encounter (statuses as of 01/21/2023) [facility] Narrative* Problem Noted [...] of this encounter (statuses as of 01/21/2023) [facility] [facility] of Past illness Narrative* Problem Noted [...] of this encounter (statuses as of 01/22/2023) [facility] Past illness Narrative* Problem Noted [...] of this encounter (statuses as of 03/26/2023) [facility] Narrative* Problem Noted [...] of this encounter (statuses as of 04/01/2023) [facility] Narrative* Problem Noted [...] of this encounter (statuses as of 04/17/2023) [facility] Narrative* Problem Noted [...] of this encounter (statuses as of 04/25/2023) [facility] Narrative* Problem Noted [...] of this encounter (statuses as of 04/29/2023) [facility] Narrative* Problem Noted [...] of this encounter (statuses as of 05/13/2023) [facility] Narrative* Problem Noted [...] of this encounter (statuses as of 06/08/2023) [facility] Narrative* Problem Noted [...] of this encounter (statuses as of 06/18/2023) [facility] Narrative* Problem Noted [...] of this encounter (statuses as of 09/22/2023) [facility] Narrative* Problem Noted [...] of this encounter (statuses as of 11/05/2023) [facility] Narrative* Problem Noted [...] of this encounter (statuses as of 11/13/2023) [facility] Narrative* Problem Noted [...] of this encounter (statuses as of 11/13/2023) [facility] Narrative* Problem Noted [...] of this encounter (statuses as of 03/01/2023) [facility] History of Present illness Narrative* Kesha Boone, GOLDIE.ABALONE PROCESSOR - 08/23/2022 8:00 AM EST SUBJECTIVE: SHINGRIX [...] Artery Stenosis Pad (Peripheral Artery Disease) ([facility]) S/P Carotid Endarterectomy H/O Ischemic Left Mca Stroke Intracranial Atherosclerosis Atherosclerosis of [place] Artery of Extremity With Intermittent Claudication ([facility]) Iliac Artery Injury, Left, Initial Encounter Facial Swelling Vitamin D Deficiency Recurrent Depressive Disorder, in Remission ([facility]) Presents today for preoperative visit in internal [...] stairs without CP or SOBOE. Goes to [facility] cardiology. Dr Maurer. October visit, [...] MEDICAL HISTORY Diagnosis Date Abnormal hemoglobin (Hgb) ([facility]) 04/07/2020 Hx: POD2 labs with drop in [...] Beasley Paget disease of bone Stroke (cerebrum) ([facility]) Subdural hematoma 2018 Unspecified essential hypertension Essential [...] Testing per surgeon request today. Followed by [facility], initially seen for preoperative clearance [...] mo follow up with imaging. Kesha Boone APRN.CNS Medical Decision Making: Problems: Moderate: 2+ stable chronic illnesses Data: Unique test(s) ordered: 2 Risk: Moderate: Decision on minor surgery w/ risk factors Medical Decision Making Level: 4 - Moderate [facility] Miscellaneous Notes* Telephone Encounter - Kaylan Garza [...] if questions or concerns. Thanks! Irlanda Canela APRN.CNP [facility] Miscellaneous Notes* Telephone Encounter - Yolanda Whatley RN - 06/14/2022 2:43 PM EST Reason for call: Mrs Gomez called and she would like to reschedule her husbands appointment with Dr Howard. Pt needs to be scheduled after 06/21/22. Contact Name: Betsey Gomez Home and cell number: [phone] Diagnosis: Carotid artery stenosis Kind RegardsYolanda documented [facility] History of Present illness Narrative* Anthony Watson [...] components. Anthony Watson MD documented in [facility] Chief complaint Narrative - Reported* An interactive audio and video telecommunication system which permits real time communications between the patient (at the originating site) and provider (at the distant site) was utilized to providethis telehealth service. * Verbal consent was requested and obtained from DENNY GOMEZ on this date, 05/27/2022 10:00 AM , fora telehealth visit. * 2 mo w/ psa JC-Jkgdffo-Xenddcxd HC 232 DO Work Phone: [phone] 199-975910-24-2022 Chief complaint Narrative - Reported* An interactive audio and video telecommunication system which permits real time communications between the patient (at the originating site) and provider (at the distant site) was utilized to providethis telehealth service. * Verbal consent was requested and obtained from DENNY GOMEZ on this date, 05/27/2022 10:00 AM , fora telehealth visit. * 2 mo w/ psa CM-Fffupfu-Haumhjhk HC 232 DO Work Phone: [phone] 804-339810-22-2022 History of Present illness NarrativePatient has hx [...] is taking Flomax and proscar. ED is chronic.CK-Ioplmzb-Ckcqesgo HC 232 DO Work Phone: [phone] 755-684410-22-2022 History of Present illness NarrativePatient has hx [...] is taking Flomax and proscar. ED is chronic.DR-Zbghgrk-Krwjuaxg HC 232 DO Work Phone: [phone] 738-404710-12-2022 History of Present illness Narrative* Anthony Watson [...] components. Anthony Watson MD [facility] Chief complaint Narrative - Reported* An interactive audio and video telecommunication system which permits real time communications between the patient (at the originating site) and provider (at the distant site) was utilized to providethis telehealth service. * Verbal consent was requested and obtained from DENNY GOMEZ on this date, 03/04/2022 09:30 AM , fora telehealth visit. * MRI results DB-Hagnxeh-Rpafrel Work Phone: 1([phone]) 221-553207-22-2022 History of Present illness Narrative* Nathaly Herr LPN - 02/22/2022 9:53 AM EDT Patient presents for COVID booster. Denies any problems at this time. Tolerated injection well. Nathaly Herr LPN documented in this encounter[facility]06[facility] History of Present illness Narrative* Tammy Thompson [...] Gap or Scheduling/Wellness visits Payer: Payor: [employer] CROSS AND BLUE [employer] / Plan: [employer] HMO / Product Type: HMO / Care Gap Reviewed:: Annual Wellness visit Reminder: Reminder note to check Health Maintenance for items below Health Maintenance items due: BP CONTROLLED (<130/80) due on 11/28/2019 PNEUMOCOCCAL: 64+(2 - PCV) due on 04/05/2021 ADVANCE DIRECTIVE DISCUSSION Never done Message Sent to Practice: No Navigation Signature: Tammy Thompson MA January 14, 2022 11:08 AM documented in this encounter[facility] Instructions* Patient Instructions* Anthony Watson MD - 12/26/2021 11:38 AM EDT Images from the original note were not included. documented in this encounterSouth[facility]05-[facility] History of Present illness Narrative* Anthony Watson [...] components. Anthony Watson MD documented in this encounter[facility]05-17-[facility] History of Present illness Narrative* Rolan Howard MD - 12/18/2021 2:26 PM EDT Images from the original note were not included. [facility] [place] DEPARTMENT OF VASCULAR SURGERY OUTPATIENT VISIT DATE [...] months with carotid duplex. Elias Xiong MD [facility] STAFF PHYSICIAN NOTE OF PERSONAL INVOLVEMENT IN [...] 2021 TIME: 2:38 PM documented in this encounterSouth[facility]04-[facility]22 History of Present illness NarrativePatient is here [...] taking Flomax and proscar. ED is chronic. TL-Cbbioyp-Psziigz Work Phone: [phone] 340-683704-05-2022 Instructions* Patient Instructions* Anthony Watson MD - 11/06/2021 10:54 AM EDT Images from the original note were not included. documented in this encounterSouth[facility]04-[facility] History of Present illness Narrative* Anthony Watson [...] components. Anthony Watson MD documented in this encounterSouth[facility]03-24-2022 Miscellaneous Notes* Telephone Encounter - Estee Carmen LPN - 10/25/2021 10:24 AM EDT Patient notified. Estee Carmen LPN * Telephone Encounter - Kesha Boone APRN.TROY - 10/25/2021 7:34 AM EDT Please let him know the fecal occult blood test was negative documented in this encounterSouth[facility] Center11-20-2021 History of Present illness NarrativePatient presents to [...] recent carotid artery w/stent placement done in 05/23..RV-Wfzobrj-Szojzpi Work Phone: [phone] 458-687705-01-2021 History of Present illness NarrativePatient presents to [...] taking Flomax and proscar. ED is chronic. GH-Yuosttj-Nnxrzry Work Phone: 1([phone]) 775-860709-04-2020 History of Past illness Narrative* Problem Noted [...] of this encounter (statuses as of 10/25/2021) [facility] of [facility] illness Narrative* Problem Noted [...] of this encounter (statuses as of 11/06/2021) [facility] illness Narrative* Problem Noted [...] of this encounter (statuses as of 12/18/2021) [facility] of [facility] illness Narrative* Problem Noted [...] of this encounter (statuses as of 12/19/2021) [facility] Narrative* Problem Noted [...] of this encounter (statuses as of 12/26/2021) [facility] Narrative* Problem Noted [...] of this encounter (statuses as of 01/14/2022) [facility] Narrative* Problem Noted [...] of this encounter (statuses as of 02/22/2022) [facility] Narrative* Problem Noted [...] of this encounter (statuses as of 05/15/2022) [facility] Narrative* Problem Noted [...] of this encounter (statuses as of 05/29/2022) [facility] Narrative* Problem Noted [...] of this encounter (statuses as of 06/14/2022) [facility] Narrative* Problem Noted [...] of this encounter (statuses as of 07/08/2022) [facility] Narrative* Problem Noted [...] of this encounter (statuses as of 07/19/2022) [facility] Narrative* Problem Noted [...] of this encounter (statuses as of 08/23/2022) [facility]* Diagnosis Homonymous hemianopsia, right- Primary Dry eye syndrome of both eyes 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 Work Phone: Evaluation note* Diagnosis Bilateral carotid artery stenosis- Primary Occlusion and stenosis of carotid artery without mention of cerebral infarction [facility]* Diagnosis Bilateral carotid artery stenosis- Primary Occlusion and stenosis of carotid artery without mention of cerebral infarction Critical lower limb ischemia (HCC) Unspecified circulatory system disorder [facility]* Diagnosis Primary open angle glaucoma (POAG) of both eyes, mild stage- Primary Homonymous hemianopsia, right Optic cupping of both eyes Dry eye syndrome of both eyes Meibomian gland 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 Dry eye syndrome of both eyes Primary open angle glaucoma (POAG) of both eyes, mild stage Meibomian gland dysfunction (MGD) of upper and lower lids of both eyes Combined forms of age-related cataract of both eyes Other and combined forms of senile cataract [facility]* Diagnosis Vasculopathy- Primary Unspecified circulatory system disorder Peripheral arterial disease (HCC) Peripheral vascular disease, unspecified [facility]* Diagnosis Preop exam for internal medicine- [...] Other postprocedural status [facility]* Diagnosis Status post glaucoma surgery- Primary Status post cataract extraction and insertion of intraocular lens of right eye Primary open angle glaucoma (POAG) of right eye, moderate stage Primary open angle glaucoma (POAG) of left eye, moderate stage Combined forms of age-related cataract of left eye Other and combined forms of senile cataract [facility]* Diagnosis Primary open angle glaucoma (POAG) [...] cataract, left eye [facility] Diagnosis Status post cataract extraction and insertion of intraocular lens of left eye- Primary Primary open angle glaucoma (POAG) of left eye, moderate stage Primary open angle glaucoma (POAG) of right eye, moderate stage Status post cataract extraction and insertion of intraocular lens of right eye [facility]* Diagnosis Primary open angle glaucoma (POAG) of right eye, moderate stage- Primary Status post cataract extraction and insertion of intraocular lens of right eye Primary open angle glaucoma (POAG) of left eye, moderate stage Status post cataract extraction and insertion of intraocular lens of left eye documented [facility] encounter [facility]* Diagnosis Bilateral carotid artery stenosis- Primary Occlusion and stenosis of carotid artery without mention of cerebral infarction documented [facility] this encounter [facility]* Diagnosis S/P carotid endarterectomy- Primary Other postprocedural status 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 H/O ischemic left MCA stroke Transient ischemic attack (TIA), and cerebral infarction without residual deficits Aneurysm of ophthalmic artery Cerebral aneurysm, nonruptured documented in this encounter [facility]* Diagnosis Vasculopathy Unspecified circulatory system disorder documented [facility] this encounter [facility]* Diagnosis Memory difficulties- Primary Memory loss [...] for diabetes mellitus documented in this encounter [facility]* Diagnosis Elevated alkaline phosphatase level- Primary Other nonspecific abnormal serum enzyme levels Weight loss Loss of weight documented in this encounter [facility]* Diagnosis Weight loss- Primary Loss of weight Encounter for immunization Need for other specified prophylactic vaccination against single bacterial disease Elevated alkaline phosphatase level Other nonspecific abnormal serum enzyme levels Adenocarcinoma of prostate (HCC) Malignant neoplasm of prostate Memory difficulties Memory loss [facility] this encounter [facility]* 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 documented in this encounter [facility] note* Diagnosis Homonymous hemianopsia, right- Primary Primary [...] serum enzyme levels [facility] Diagnosis Memory difficulties- Primary Memory loss [facility] Diagnosis Elevated alkaline phosphatase level Other nonspecific abnormal serum enzyme levels [facility]* Diagnosis Primary open-angle glaucoma, left eye, moderate stage Combined forms of age-related cataract, left eye Essential (primary) hypertension Unspecified essential hypertension Peripheral vascular disease, unspecified (CMS/HCC) Peripheral vascular disease, unspecified Benign prostatic hyperplasia without lower urinary tract symptoms Personal history of transient ischemic attack (TIA), and cerebral infarction without residual deficits Anxiety disorder, unspecified Depression, unspecified care home (current) use of 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 Tobacco use documented in this encounter [facility] Work Phone: Evaluation note* Diagnosis 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 documented in this encounter [facility] note* Diagnosis Elevated alkaline phosphatase level- Primary Other nonspecific abnormal serum enzyme levels [facility]* 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 [facility]* Diagnosis Essential hypertension- Primary Unspecified essential hypertension Elevated alkaline phosphatase level Other nonspecific abnormal serum enzyme levels Vitamin D deficiency Unspecified vitamin D deficiency Recurrent depressive disorder, in remission (HCC) 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 Encounter for immunization Need for other specified prophylactic vaccination against single bacterial disease [facility]* Diagnosis Primary open angle glaucoma (POAG) of right eye, moderate stage- Primary Primary open angle glaucoma (POAG) of left eye, moderate stage 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, right Essential hypertension Unspecified essential hypertension H/O ischemic left MCA stroke Transient ischemic attack (TIA), and cerebral infarction without residual deficits [facility]* Diagnosis S/P carotid endarterectomy- Primary Other postprocedural status documented [facility]* Diagnosis Weight loss Loss of weight [facility]* Diagnosis Essential hypertension- Primary Unspecified essential [...] difficulties Memory loss [facility] Diagnosis Elevated alkaline phosphatase level [R74.8]- Primary Other nonspecific abnormal serum enzyme levels Abnormal weight loss [R63.4] Loss of weight documented in this encounter [facility]* Diagnosis Viral illness- Primary Unspecified viral infection, in conditions classified elsewhere and of unspecified site COPD with exacerbation (HCC) Obstructive chronic bronchitis with exacerbation [facility]* Diagnosis Erectile dysfunction, unspecified erectile dysfunction type Benign prostatic hyperplasia with lower urinary tract symptoms, symptom details unspecified Urinary frequency Nocturia documented in this encounter [facility] Work Phone: Evaluation note* Diagnosis PAD (peripheral artery disease) (HCC)- Primary Peripheral vascular disease, unspecified Tobacco abuse Tobacco use disorder Carotid aneurysm, left (HCC) Aneurysm of artery of neck [facility]* Diagnosis Primary open angle glaucoma (POAG) of right eye, moderate stage- Primary Primary open angle glaucoma (POAG) of left eye, moderate stage 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, right Essential hypertension Unspecified essential hypertension H/O ischemic left MCA stroke Transient ischemic attack (TIA), and cerebral infarction without residual deficits [facility]* Diagnosis Acute cough- Primary Chronic obstructive pulmonary disease, unspecified COPD type (HCC) [facility]* Diagnosis Chronic cough- Primary Cough Weight loss Loss of weight Vitamin D deficiency Unspecified vitamin D deficiency Smoker unmotivated to quit Tobacco use disorder [facility] Diagnosis Chronic cough Cough Smoker unmotivated to quit Tobacco use disorder [facility]* Diagnosis Abnormality of lung on CXR- Primary [facility]* Diagnosis Abnormality of lung on CXR [facility]* Diagnosis Intracranial atherosclerosis- Primary Cerebral atherosclerosis [facility]* Diagnosis Nonruptured cerebral aneurysm (HCC) Cerebral aneurysm, nonruptured Occlusion and stenosis of unspecified carotid artery [facility]* Diagnosis Erectile dysfunction, unspecified erectile dysfunction type Nocturia High prostate specific antigen (PSA) Benign prostatic hyperplasia with lower urinary tract symptoms, symptom details unspecified documented in this encounter [facility] Work Phone: Evaluation note* Diagnosis Bilateral carotid artery stenosis- Primary Occlusion and stenosis of carotid artery without mention of cerebral infarction [facility]* Diagnosis Centrilobular emphysema (HCC)- Primary Other emphysema Nicotine dependence, cigarettes, uncomplicated Pulmonary nodule Solitary pulmonary nodule [facility]* Diagnosis Primary open angle glaucoma (POAG) of right eye, moderate stage- Primary Primary open angle glaucoma (POAG) of left eye, moderate stage 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 Return back to ED if symptoms change or worsenWOhioHealth [facility] Work Phone: Progress note Author Conner Thoren [facility] Note Date/Time May 20, 2025 1 1:31am [facility] [address] [place] [address], [address] [place] [address] OFFICE VISIT Date of Service: 05/20/25 MR#: [id number] Acct: [id number] Name: DENNY GOMEZ Rep #: [id number] : 1955 Provider: JOCELYNN Cohen Age/Sex: 69/M Location: [facility] Status: Signed <Statement entered by Conner Thorne [...] FATHER FROM [place], WORKED IN THE [employer] No problems noted. Brother , AT No [...] health; No fatigue, fever(s) or weight loss HENMT HENMT: No rhinitis, sore throat/mouth sore, nasal [...] Left forehead mobile, nontender, well circumscribed soft [id number] mass Left upper back 14cm by 8.5cm [...] Status: Acute Comment: Likely lipoma Plan March head reviewed which didn't show abnormalities surrounding [...] Date (if applicable) Lily Acosta CC: ~ [employer] Work Phone: Reason for referral (narrative)* Outpatient Procedure (Routine) - Pending Review Specialty Diagnoses / Procedures Referred By Contac t Referred To Contact [facility] Diagnoses Bilateral carotid artery stenosis Procedures US CAROTID ARTERIES DAVID VAS LAB DUPLEX SCAN EXTRACRANIAL ART COMPL BI STUDY Rolan Howard MD [address] [place] [address] [facility] [address] [place] [address] Referral ID Status Reason Start Date Expiration Date Visits Requested Visits Authorized [id number] Pending Review Auto-Generat ed Referral 12/18/2021 12/18/[address] [facility] for referral (narrative)* Outpatient Procedure (Routine) - Closed Specialty Diagnoses / Procedures Referred By Contbret t Referred To Contact [facility] Diagnoses Preop exam for internal medicine Procedures ECG COMPLETE ECG ROUTINE ECG W/LEAST 12 LDS W/I&R Kesha Boone, SUPERVISOR [employer] PROCESSOR [address] [place] [address] [facility] [address] [address] Referral ID Status Reason Start Date Expiration Date V isits Requested Visits Authorized [id number] Closed Auto-Generate d Referral 08/23/2022 08/23/[address] [facility] for referral (narrative)* Outpatient Procedure (Routine) - Authorized Specialty Diagnoses / Procedures Referred By Contac t Referred [facility] Diagnoses Bilateral carotid artery stenosis Procedures US CAROTID ARTERIES DAVID VAS LAB DUPLEX SCAN EXTRACRANIAL ART COMPL BI STUDY Carlos A Kennedy MD [address] [place] [address] [facility] [place] [address] [place] [id number] Referral ID Status Reason Start Date Expiration Date Visits Requested Visits Authorized [id number] Authorized Auto-Generat ed Referral 01/21/2023 01/21/[address] [facility] for referral (narrative)* Diagnostic Procedure Only (Routine) - Authorized Specialty Diagnoses / Procedures Referred By Contac t Referred To Contact US IMAGING Diagnoses Elevated alkaline phosphatase level Procedures US ABD RIGHT UPPER QUADRANT US ABDOMINAL REAL TIME W/IMAGE LIMITED Kesha Boone, GOLDIE.ABALONE PROCESSOR [address] [place] [address] [place] [address] Referral ID Status Reason Start Date Expiration Date Visits Requested Visits Authorized [id number] Authorized Auto-Generat ed Referral 04/25/2023 05/24/[address] [facility] for referral (narrative)* Diagnostic Procedure Only (Routine) - Closed Specialty Diagnoses / Procedures Referred By Contac t Referred To Contact US IMAGING Diagnoses Elevated alkaline phosphatase level Procedures US ABD RIGHT UPPER QUADRANT US ABDOMINAL REAL TIME W/IMAGE LIMITED Kesha Boone, SUPERVISOR [employer]ONE PROCESSOR [address] [place] [address] [place] [address] Referral ID Status Reason Start Date Expiration Date V isits Requested Visits Authorized [id number] Closed Auto-Generate d Referral 04/25/2023 05/24/[address] [facility] for referral (narrative)* Outpatient Procedure (Routine) - Authorized Specialty Diagnoses / Procedures Referred By Contac t Referred To Contact [facility] Diagnoses S/P carotid endarterectomy Procedures US CAROTID ARTERIES DAVID VAS LAB DUPLEX SCAN EXTRACRANIAL ART COMPL BI STUDY Carlos A Kennedy MD [address] [place] [address] [address] Referral ID Status Reason Start Date Expiration Date Visits Requested Visits Authorized [id number] Authorized Auto-Generat ed Referral 04/01/2024 04/01/2025 1 1 * Outpatient Procedure (Routine) - Authorized Specialty Diagnoses / Procedures Referred By Contac t Referred To Contact [facility] Diagnoses S/P carotid endarterectomy Procedures PVR LEG DAVID VAS LAB NON-INVASIVE PHYSIOLOGIC STUDY EXTREMITY 3 LEVLS Carlos A Kennedy MD [address] [place] [address] [address] Referral ID Status Reason Start Date Expiration Date Visits Requested Visits Authorized [id number] Authorized Auto-Generat ed Referral 04/01/2024 04/01/[address] [facility] for referral (narrative)No reason for referral information availableWOhio[facility] Work Phone: Reason for visit Narrative* MRI/CT (Routine) - Closed Specialty Diagnoses / Procedures Referred By Contac t Referred To Contact CT IMAGING Diagnoses Occlusion and stenosis of unspecified carotid artery Procedures CTA NECK W IVCON CT ANGIOGRAPHY NECK W/CONTRAST/NONCONTRAST Carolin Fang MD [address] [place] [address] Phone: tel: fax: CT IMAGING [facility]95 Referral ID Status Reason Start Date Expiration Date V isits Requested Visits Authorized [id number] Closed Auto-Generate d Referral 12/21/2024 01/20/2026 1 1 [facility] Summary Purpose Family History No Family History [...] FoundDocuments on File Type Date Recorded Patient Car Hopper Expl anation Advance Directives and Livin g Will 12/27/2019 10:16 AM Documents on File Type Date Recorded Patient Car Hopper Expl anation Advance Directive(s) 03/23/2020 3:18 PM Advance Directive(s) 03/20/2020 11:18 AM Advance Directive(s) 01/25/2019 8:04 PM Advance Directive Response Recorded Date/ Time Living Will No October 17, 2020 10:09pm Power of Radiation Physicist No October 17 10:09pm Documents on File Type Date Recorded Patient Car Hopper Expl anation Advance Directive(s) 03/23/2020 3:18 PM Advance Directive(s) 03/20/2020 11:18 AM Advance Directive(s) 01/25/2019 8:04 PM Advance Directive Response Recorded Date/ Time Living Will No October 17, 2020 9:09pm Power of Radiation Physicist No October 17 9:09pm Advance Directive Response Recorded Date/ Time Do you have a Healthcare Power of Radiation Physicist? No March 07, 2025 12:48pm Advance Directive Response Recorded Date/ Time Living Will No October 17, 2020 10:09pm Do you have a Healthcare Power of Radiation Physicist? No October 17, 2020 10:09pm Do you have a Healthcare Power of Radiation Physicist? No March 07, 2025 12:48pm Hospital Course Note HNO ID: [id number] Author: Allison cohen (Kimi) Yosvany Service: Critical [...] Care Everywhere. * Edema: Leg and Ankle (Armenian) documented in this encounter* Attachments The following attachments cannot be sent through Care Everywhere. * Edema: Leg and Ankle (Armenian) documented in this encounter Assessments Diagnosis Peripheral [...] Until Fri04/29/23 at 2128, Administer for dilation PROTECT FROM LIGHT Given [...] CT ANGIOGRAPHY NECK W/CONTRAST/NONCONTRAST Rolan Howard MD [address] [facility] [place] [address] Ct Imaging Referral ID Status Reason Start Date Expiration Date Visits Requested Visits Authorized [id number] Pending Review Auto-Generat ed Referral 2 08/18/2023 1 1 Specialty Diagnoses / Procedures Referred By Contac t Referred To Contact CT IMAGING Diagnoses Vasculopathy Procedures CTA HEAD WO/W IVCON CT ANGIOGRAPHY HEAD W/CONTRAST/NONCONTRAST Rolan Howard MD [address] [facility] [place] [address] Ct Imaging Referral ID Status Reason Start Date Expiration Date Visits Requested Visits Authorized [id number] Pending Review Auto-Generat ed Referral 2 08/18/2023 1 1 Specialty Diagnoses / Procedures Referred By Contac t Referred To [facility] Diagnoses Peripheral arterial disease (HCC) Procedures PVR LEG DAVID VAS LAB NON-INVASIVE PHYSIOLOGIC STUDY EXTREMITY 3 Rolan Alvarado MD [address] [facility] [place] [address] [facility] [place] [address] [place] [address] Referral ID Status Reason Start Date Expiration Date Visits Requested Visits Authorized [id number] Authorized Auto-Generat ed Referral 2 07/19/2023 1 1 Specialty Diagnoses / Procedures Referred By Contac t Referred To Contact CT IMAGING Diagnoses Vasculopathy Procedures CTA NECK W IVCON CT ANGIOGRAPHY NECK W/CONTRAST/NONCONTRAST Rolan Howard MD [address] [place] [address] Ct Imaging Referral ID Status Reason Start Date Expiration Date V isits Requested Visits Authorized [id number] Closed Auto-Generate d Referral 07/19/2022 08/18/2023 1 1 Specialty Diagnoses / Procedures Referred By Contac t Referred To Contact CT IMAGING Diagnoses Vasculopathy Procedures CTA HEAD WO/W IVCON CT ANGIOGRAPHY HEAD W/CONTRAST/NONCONTRAST Rolan Howard MD [address] [place], [place] [id number] Ct Imaging Referral ID Status Reason Start Date Expiration Date V isits Requested Visits Authorized [id number] Closed Auto-Generate d Referral 07/19/2022 08/18/2023 1 1 Specialty Diagnoses / Procedures Referred By Contac t Referred To Contact Endocrinology Diagnoses Weight loss Elevated alkaline phosphatase level Procedures CONSULT TO ENDOCRINOLOGY OFFICE/OUTPATIENT [facility] 60-74 MINUTES Kesha Boone, SUPERVISOR [employer].[facility] [address] [place] [address] Referral ID Status Reason Start Date Expiration Date Visits Requested Visits Authorized [id number] Authorized PCP Requested Referral 03/27/2023 03/26/2024 1 1 Specialty Diagnoses / Procedures Referred By Contac t Referred To Contact Endocrinology Diagnoses Paget's bone disease Kesha Boone, [address] [address] Frank Cano, [facility] [address] [address] Referral ID Status Reason Start Date Expiration Date Visits Requested Visits Authorized [id number] Pending Review Specialty Services Required/Pat ient's Best Interest 04/29/2023 04/28/2024 1 1 Specialty Diagnoses / Procedures Referred By Contac t Referred To Contact Gerontology / GERIATRICS Diagnoses Memory difficulties Procedures CONSULT TO GERIATRICS OFFICE/OUTPATIENT [facility] 60-74 MINUTES Kesha Boone, SUPERVISOR [employer].ABALONE PROCESSOR [address] [place] [address] [facility] [address] [address] [place] [address] Referral ID Status Reason Start Date Expiration Date V isits Requested Visits Authorized [id number] Closed PCP Requested Referral 05/02/2023 05/01/2024 1 1 Specialty Diagnoses / Procedures Referred By Contac t Referred To Contact Neurology Diagnoses Carotid aneurysm, left (HCC) Procedures CONSULT TO NEUROLOGY OFFICE/OUTPATIENT NEW HIGH MDM 60 MINUTES Carlos A Kennedy MD [address] [place] [address] Referral ID Status Reason Start Date Expiration Date Visits Requested Visits Authorized [id number] Pending Review PCP Requested Referral 07/19/2025 1 1 Specialty Diagnoses / Procedures Referred By Contac t Referred To Contact [facility] Diagnoses PAD (peripheral artery disease) ([facility]) Procedures US LEG ARTERIAL PERIPH DAVID VAS LAB DUP-SCAN LXTR ART/ARTL BPGS COMPL BI STUDY Carlos A Kennedy MD [address] [place] [address] [facility] [place] [address] [place] [address] Referral ID Status Reason Start Date Expiration Date V isits Requested Visits Authorized [id number] Closed Auto-Generate d Referral 07/19/2024 07/19/2025 1 [...] section and content) DATE CREATED AUTHOR 06/09/2019 [facility] DATE CREATED AUTHOR AUTHOR'S ORGANIZ ATION 01/01/2020 [facility] DATE CREATED AUTHOR AUTHOR'S ORGANIZ ATION 01/05/2020 [facility] DATE CREATED AUTHOR AUTHOR'S ORGANIZ ATION 02/21/2020 [facility] DATE CREATED AUTHOR AUTHOR'S ORGANIZ ATION 02/25/2020 [facility] DATE CREATED AUTHOR AUTHOR'S ORGANIZ ATION 01/11/2023 [facility] DATE CREATED AUTHOR AUTHOR'S ORGANIZ ATION 04/03/2023 [facility] DATE CREATED AUTHOR AUTHOR'S ORGANIZ ATION 04/12/2023 [facility] DATE CREATED AUTHOR AUTHOR'S ORGANIZ ATION 07/20/2023 [facility] DATE CREATED AUTHOR AUTHOR'S ORGANIZ ATION 01/14/2025 [facility] DATE CREATED AUTHOR AUTHOR'S ORGANIZ ATION 05/30/2025 [facility] DATE CREATED AUTHOR AUTHOR'S ORGANIZ ATION 06/12/2025 [facility] Reason for Visit (unrecogniz ed section [...] Date Comments Population Health Navigation Outreach 01/14/2022 [place] Attribution Reason Comments Imm/Inj Reason Comments Dry [...] ANGIOGRAPHY NECK W/CONTRAST/NONCONTRAST Rolan Howard MD [address] [place] [address] Ct Imaging Referral ID Status Reason Start Date Expiration Date V isits Requested Visits Authorized [id number] Closed Auto-Generate d Referral 07/19/2022 08/18/2023 1 [...] Referred By Trent t Referred To Contact US IMAGING Diagnoses Elevated alkaline phosphatase level Procedures US ABD RIGHT UPPER QUADRANT US ABDOMINAL REAL TIME W/IMAGE LIMITED Kesha Boone, SUPERVISOR [employer].[facility] [address] [place] [address] [place] [address] Referral ID Status Reason Start Date Expiration Date V isits Requested Visits Authorized [id number] Closed Auto-Generate d Referral 04/25/2023 05/24/2024 1 1 Reason Comments Question Reason Comments Other Primary open-angle g laucoma, left eye, moderate stage , Combined forms of age-related cataract, left eye Reason Comments Pagets Disease Specialty Diagnoses / Procedures Referred By Contbret t Referred To Contact Endocrinology Diagnoses Paget's bone disease Kesha Boone, [facility] [address] [place] [address] Frank Cano, [employer] [address] [address] Referral ID Status Reason Start Date Expiration Date Visits Requested Visits Authorized [id number] Pending Review Specialty Services Required/Pat ient's Best Interest 04/29/2023 04/28/2024 1 1 Reason Onset Date Comments Refill Request 09/19/2023 Reason Comments Non-Chemotherapy Treatment Specialty Diagnoses / Procedures Referred By Trent hancock Referred To Contact Diagnoses Paget's bone disease Procedures INJECTION, ZOLEDRONIC ACID, 1 MG Christine Greene MD [address] [place] [address] [facility] [address] [place] [address] Referral ID Status Reason Start Date Expiration Date V isits Requested Visits Authorized [id number] Authorized 11/05/2023 08/03/2024 99 99 Reason Comments [...] 40 MIN EST ADULT Massiel Harrell MD [address] [place] [address] Massiel Harrell MD [address] [place], [place] [id number] Referral ID Status Reason Start Date Expiration Date V isits Requested Visits Authorized [id number] Authorized 03/02/2024 08/03/2024 1 99 Reason Comments F/U 6 Month Reason Comments Recheck Follow up from visit please let him know that on review of his chart it looks like 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 Schedule if willing. Also looks like Reason Comments Paget's Disease Of Bone Received Reclast infusion 11/13/2023 Specialty Diagnoses / Procedures Referred By Trent hancock Referred To Contact Endocrinology / ENDOCRINOLOGY Diagnoses Follow up Procedures EST DAVID PATIENT Self Christine Greene MD [address] [place] [address] Referral ID Status Reason Start Date Expiration Date V isits Requested Visits Authorized [id number] Authorized 04/30/2024 08/03/2024 99 99 Reason Comments [...] MIN EST PATIENT Carlos A Kennedy MD [address] [place] [address] Carlos A Kennedy MD [address] [place] [address] Referral ID Status Reason Start Date Expiration Date Visits Re quested Visits Authorized [id number] Closed 06/24/2024 08/03/2024 1 1 Reason Comments Primary Open Angle Glaucoma Follow Up [facility] th eyes- Patient here per instruction for intraocular pressure check Specialty Diagnoses / Procedures Referred By Trent hancock Referred To Contact Ophthalmology / OPHTHALMOLOGY Diagnoses Primary open-angle glaucoma, right eye, moderate stage vf/fp return in 6 months Procedures OPHTH MEDICAL XM&EVAL INTERMEDIATE ESTAB PT EST ADULT Massiel Harrell MD [address] [place] [address] Phone: tel: fax: Massiel Harrell MD [address] [place] [address] Phone: tel: fax: Referral ID Status Reason Start Date Expiration Date Visits Re quested Visits Authorized [id number] Closed 09/08/2024 08/03/2025 1 1 Reason Comments [...] TOMOGRAPHY THORAX W/O CNTRST Malu Rowe MD [address] [place] [address] Phone: tel: fax: [place] [address] Referral ID Status Reason Start Date Expiration Date V isits Requested Visits Authorized [id number] Closed Auto-Generate d Referral 10/31/2024 11/30/2025 1 1 Reason Onset Date Comments Results 10/31/2024 CXR Reason Onset Date Comments Results 10/31/2024 labwork Reason Comments Results CT scan results Reason Comments Medication Request Reason Comments COPD Isidra Becker RN - 12/27/2019 10:27 AM Isidra Jones RN - 12/27/2019 9:44 AM Arthur Parra MD - 12/27/2019 9:38 AM Isidra Jones RN - 12/27/2019 9:34 AM EDT ED Notes (unrecognized secti on and content) DISCHARGE PAPERWORK RECEIVED, REGISTRATION CARTSIDE. XRAY CARTSIDE, PLAN OF CARE REVIEWED WITH PATIENT, DENIES CURRENT NEEDS, CALL LIGHT IN REACH. [facility] ED Attending Note: NAME: Denny Gomez 64 y.o. CSN: [id number] PCP: No primary care provider on file. [...] file Gets together: Not on file Attends rastafarian service: Not on file Active member of [...] Procedure Abnormality Status --------- ------ CBC Auto Differential[[id number]] Abnormal Final result Please view results for [...] being discharged to home Arthur Carcamo MD [facility] Emergency Department (Please note that portions [...] or prosecute any alcohol or drug abuse patient.[facility] the event this information is protected by the Federal Confidentiality of Alcohol and Drug Abuse Patient Records regulations: The Federal rules restrict any use of the information to criminally investigate or prosecute any alcohol or drug abuse patient.[facility] CenterIn the event this information is protected by the Federal Confidentiality of Alcohol and Drug Abuse Patient Records regulations: The Federal rules restrict any use of the information to criminally investigate or prosecute any alcohol or drug abuse patient.[facility] CenterIn the event this information is protected by the Federal Confidentiality of Alcohol and Drug Abuse Patient Records regulations: The Federal rules restrict any use of the information to criminally investigate or prosecute any alcohol or drug abuse patient.[facility] CenterIn the event this information is protected by the Federal Confidentiality of Alcohol and Drug Abuse Patient Records regulations: The Federal rules restrict any use of the information to criminally investigate or prosecute any alcohol or drug abuse patient.[facility] CenterIn the event this information is protected by the Federal Confidentiality of Alcohol and Drug Abuse Patient Records regulations: The Federal rules restrict any use of the information to criminally investigate or prosecute any alcohol or drug abuse patient.[facility] CenterIn the event this information is protected by the Federal Confidentiality of Alcohol and Drug Abuse Patient Records regulations: The Federal rules restrict any use of the information to criminally investigate or prosecute any alcohol or drug abuse patient.[facility] CenterIn the event this information is protected by the Federal Confidentiality of Alcohol and Drug Abuse Patient Records regulations: The Federal rules restrict any use of the information to criminally investigate or prosecute any alcohol or drug abuse patient.[facility] CenterIn the event this information is protected by the Federal Confidentiality of Alcohol and Drug Abuse Patient Records regulations: The Federal rules restrict any use of the information to criminally investigate or prosecute any alcohol or drug abuse patient.[facility] CenterIn the event this information is protected by the Federal Confidentiality of Alcohol and Drug Abuse Patient Records regulations: The Federal rules restrict any use of the information to criminally investigate or prosecute any alcohol or drug abuse patient.[facility] CenterIn the event this information is protected by the Federal Confidentiality of Alcohol and Drug Abuse Patient Records regulations: The Federal rules restrict any use of the information to criminally investigate or prosecute any alcohol or drug abuse patient.[facility] CenterIn the event this information is protected by the Federal Confidentiality of Alcohol and Drug Abuse Patient Records regulations: The Federal rules restrict any use of the information to criminally investigate or prosecute any alcohol or drug abuse patient.[facility] CenterIn the event this information is protected by the Federal Confidentiality of Alcohol and Drug Abuse Patient Records regulations: The Federal rules restrict any use of the information to criminally investigate or prosecute any alcohol or drug abuse patient.[facility] CenterIn the event this information is protected by the Federal Confidentiality of Alcohol and Drug Abuse Patient Records regulations: The Federal rules restrict any use of the information to criminally investigate or prosecute any alcohol or drug abuse patient.[facility] CenterIn the event this information is protected by the Federal Confidentiality of Alcohol and Drug Abuse Patient Records regulations: The Federal rules restrict any use of the information to criminally investigate or prosecute any alcohol or drug abuse patient.[facility] CenterIn the event this information is protected by the Federal Confidentiality of Alcohol and Drug Abuse Patient Records regulations: The Federal rules restrict any use of the information to criminally investigate or prosecute any alcohol or drug abuse patient.[facility] CenterIn the event this information is protected by the Federal Confidentiality of Alcohol and Drug Abuse Patient Records regulations: The Federal rules restrict any use of the information to criminally investigate or prosecute any alcohol or drug abuse patient.[facility] CenterIn the event this information is protected by the Federal Confidentiality of Alcohol and Drug Abuse Patient Records regulations: The Federal rules restrict any use of the information to criminally investigate or prosecute any alcohol or drug abuse patient.[facility] CenterIn the event this information is protected by the Federal Confidentiality of Alcohol and Drug Abuse Patient Records regulations: The Federal rules restrict any use of the information to criminally investigate or prosecute any alcohol or drug abuse patient.[facility] CenterIn the event this information is protected by the Federal Confidentiality of Alcohol and Drug Abuse Patient Records regulations: The Federal rules restrict any use of the information to criminally investigate or prosecute any alcohol or drug abuse patient.[facility] CenterIn the event this information is protected by the Federal Confidentiality of Alcohol and Drug Abuse Patient Records regulations: The Federal rules restrict any use of the information to criminally investigate or prosecute any alcohol or drug abuse patient.[facility] CenterIn the event this information is protected by the Federal Confidentiality of Alcohol and Drug Abuse Patient Records regulations: The Federal rules restrict any use of the information to criminally investigate or prosecute any alcohol or drug abuse patient.[facility] CenterIn the event this information is protected by the Federal Confidentiality of Alcohol and Drug Abuse Patient Records regulations: The Federal rules restrict any use of the information to criminally investigate or prosecute any alcohol or drug abuse patient.[facility] CenterIn the event this information is protected by the Federal Confidentiality of Alcohol and Drug Abuse Patient Records regulations: The Federal rules restrict any use of the information to criminally investigate or prosecute any alcohol or drug abuse patient.[facility] CenterIn the event this information is protected by the Federal Confidentiality of Alcohol and Drug Abuse Patient Records regulations: The Federal rules restrict any use of the information to criminally investigate or prosecute any alcohol or drug abuse patient.[facility] CenterIn the event this information is protected by the Federal Confidentiality of Alcohol and Drug Abuse Patient Records regulations: The Federal rules restrict any use of the information to criminally investigate or prosecute any alcohol or drug abuse patient.[facility] CenterIn the event this information is protected by the Federal Confidentiality of Alcohol and Drug Abuse Patient Records regulations: The Federal rules restrict any use of the information to criminally investigate or prosecute any alcohol or drug abuse patient.[facility] CenterIn the event this information is protected by the Federal Confidentiality of Alcohol and Drug Abuse Patient Records regulations: The Federal rules restrict any use of the information to criminally investigate or prosecute any alcohol or drug abuse patient.[facility] CenterIn the event this information is protected by the Federal Confidentiality of Alcohol and Drug Abuse Patient Records regulations: The Federal rules restrict any use of the information to criminally investigate or prosecute any alcohol or drug abuse patient.[facility] CenterIn the event this information is protected by the Federal Confidentiality of Alcohol and Drug Abuse Patient Records regulations: The Federal rules restrict any use of the information to criminally investigate or prosecute any alcohol or drug abuse patient.[facility] CenterIn the event this information is protected by the Federal Confidentiality of Alcohol and Drug Abuse Patient Records regulations: The Federal rules restrict any use of the information to criminally investigate or prosecute any alcohol or drug abuse patient.[facility] CenterIn the event this information is protected by the Federal Confidentiality of Alcohol and Drug Abuse Patient Records regulations: The Federal rules restrict any use of the information to criminally investigate or prosecute any alcohol or drug abuse patient.[facility] CenterIn the event this information is protected by the Federal Confidentiality of Alcohol and Drug Abuse Patient Records regulations: The Federal rules restrict any use of the information to criminally investigate or prosecute any alcohol or drug abuse patient.[facility] CenterIn the event this information is protected by the Federal Confidentiality of Alcohol and Drug Abuse Patient Records regulations: The Federal rules restrict any use of the information to criminally investigate or prosecute any alcohol or drug abuse patient.[facility] CenterIn the event this information is protected by the Federal Confidentiality of Alcohol and Drug Abuse Patient Records regulations: The Federal rules restrict any use of the information to criminally investigate or prosecute any alcohol or drug abuse patient.[facility] CenterIn the event this information is protected by the Federal Confidentiality of Alcohol and Drug Abuse Patient Records regulations: The Federal rules restrict any use of the information to criminally investigate or prosecute any alcohol or drug abuse patient.[facility] CenterIn the event this information is protected by the Federal Confidentiality of Alcohol and Drug Abuse Patient Records regulations: The Federal rules restrict any use of the information to criminally investigate or prosecute any alcohol or drug abuse patient.[facility] CenterIn the event this information is protected by the Federal Confidentiality of Alcohol and Drug Abuse Patient Records regulations: The Federal rules restrict any use of the information to criminally investigate or prosecute any alcohol or drug abuse patient.[facility] CenterIn the event this information is protected by the Federal Confidentiality of Alcohol and Drug Abuse Patient Records regulations: The Federal rules restrict any use of the information to criminally investigate or prosecute any alcohol or drug abuse patient.[facility] CenterIn the event this information is protected by the Federal Confidentiality of Alcohol and Drug Abuse Patient Records regulations: The Federal rules restrict any use of the information to criminally investigate or prosecute any alcohol or drug abuse patient.[facility] CenterIn the event this information is protected by the Federal Confidentiality of Alcohol and Drug Abuse Patient Records regulations: The Federal rules restrict any use of the information to criminally investigate or prosecute any alcohol or drug abuse patient.[facility] CenterIn the event this information is protected by the Federal Confidentiality of Alcohol and Drug Abuse Patient Records regulations: The Federal rules restrict any use of the information to criminally investigate or prosecute any alcohol or drug abuse patient.[facility] CenterIn the event this information is protected by the Federal Confidentiality of Alcohol and Drug Abuse Patient Records regulations: The Federal rules restrict any use of the information to criminally investigate or prosecute any alcohol or drug abuse patient.[facility] CenterIn the event this information is protected by the Federal Confidentiality of Alcohol and Drug Abuse Patient Records regulations: The Federal rules restrict any use of the information to criminally investigate or prosecute any alcohol or drug abuse patient.[facility] CenterIn the event this information is protected by the Federal Confidentiality of Alcohol and Drug Abuse Patient Records regulations: The Federal rules restrict any use of the information to criminally investigate or prosecute any alcohol or drug abuse patient.[facility] CenterIn the event this information is protected by the Federal Confidentiality of Alcohol and Drug Abuse Patient Records regulations: The Federal rules restrict any use of the information to criminally investigate or prosecute any alcohol or drug abuse patient.[facility] CenterIn the event this information is protected by the Federal Confidentiality of Alcohol and Drug Abuse Patient Records regulations: The Federal rules restrict any use of the information to criminally investigate or prosecute any alcohol or drug abuse patient.[facility] CenterIn the event this information is protected by the Federal Confidentiality of Alcohol and Drug Abuse Patient Records regulations: The Federal rules restrict any use of the information to criminally investigate or prosecute any alcohol or drug abuse patient.[facility] CenterIn the event this information is protected by the Federal Confidentiality of Alcohol and Drug Abuse Patient Records regulations: The Federal rules restrict any use of the information to criminally investigate or prosecute any alcohol or drug abuse patient.[facility] CenterIn the event this information is protected by the Federal Confidentiality of Alcohol and Drug Abuse Patient Records regulations: The Federal rules restrict any use of the information to criminally investigate or prosecute any alcohol or drug abuse patient.[facility] CenterIn the event this information is protected by the Federal Confidentiality of Alcohol and Drug Abuse Patient Records regulations: The Federal rules restrict any use of the information to criminally investigate or prosecute any alcohol or drug abuse patient.[facility] CenterIn the event this information is protected by the Federal Confidentiality of Alcohol and Drug Abuse Patient Records regulations: The Federal rules restrict any use of the information to criminally investigate or prosecute any alcohol or drug abuse patient.[facility] CenterIn the event this information is protected by the Federal Confidentiality of Alcohol and Drug Abuse Patient Records regulations: The Federal rules restrict any use of the information to criminally investigate or prosecute any alcohol or drug abuse patient.[facility] CenterIn the event this information is protected by the Federal Confidentiality of Alcohol and Drug Abuse Patient Records regulations: The Federal rules restrict any use of the information to criminally investigate or prosecute any alcohol or drug abuse patient.[facility] CenterIn the event this information is protected by the Federal Confidentiality of Alcohol and Drug Abuse Patient Records regulations: The Federal rules restrict any use of the information to criminally investigate or prosecute any alcohol or drug abuse patient.[facility] CenterIn the event this information is protected by the Federal Confidentiality of Alcohol and Drug Abuse Patient Records regulations: The Federal rules restrict any use of the information to criminally investigate or prosecute any alcohol or drug abuse patient.[facility] CenterIn the event this information is protected by the Federal Confidentiality of Alcohol and Drug Abuse Patient Records regulations: The Federal rules restrict any use of the information to criminally investigate or prosecute any alcohol or drug abuse patient.[facility] CenterIn the event this information is protected by the Federal Confidentiality of Alcohol and Drug Abuse Patient Records regulations: The Federal rules restrict any use of the information to criminally investigate or prosecute any alcohol or drug abuse patient.[facility] CenterIn the event this information is protected by the Federal Confidentiality of Alcohol and Drug Abuse Patient Records regulations: The Federal rules restrict any use of the information to criminally investigate or prosecute any alcohol or drug abuse patient.[facility] CenterIn the event this information is protected by the Federal Confidentiality of Alcohol and Drug Abuse Patient Records regulations: The Federal rules restrict any use of the information to criminally investigate or prosecute any alcohol or drug abuse patient.[facility] CenterIn the event this information is protected by the Federal Confidentiality of Alcohol and Drug Abuse Patient Records regulations: The Federal rules restrict any use of the information to criminally investigate or prosecute any alcohol or drug abuse patient.[facility] CenterIn the event this information is protected by the Federal Confidentiality of Alcohol and Drug Abuse Patient Records regulations: The Federal rules restrict any use of the information to criminally investigate or prosecute any alcohol or drug abuse patient.[facility] CenterIn the event this information is protected by the Federal Confidentiality of Alcohol and Drug Abuse Patient Records regulations: The Federal rules restrict any use of the information to criminally investigate or prosecute any alcohol or drug abuse patient.[facility] CenterIn the event this information is protected by the Federal Confidentiality of Alcohol and Drug Abuse Patient Records regulations: The Federal rules restrict any use of the information to criminally investigate or prosecute any alcohol or drug abuse patient.[facility] CenterIn the event this information is protected by the Federal Confidentiality of Alcohol and Drug Abuse Patient Records regulations: The Federal rules restrict any use of the information to criminally investigate or prosecute any alcohol or drug abuse patient.[facility] CenterIn the event this information is protected by the Federal Confidentiality of Alcohol and Drug Abuse Patient Records regulations: The Federal rules restrict any use of the information to criminally investigate or prosecute any alcohol or drug abuse patient.[facility] CenterIn the event this information is protected by the Federal Confidentiality of Alcohol and Drug Abuse Patient Records regulations: The Federal rules restrict any use of the information to criminally investigate or prosecute any alcohol or drug abuse patient.[facility] Care Teams (unrecognized sec tion and content) Upsetting Machine Operator Relationship Specialty Start Date End Date Malu Rowe MD [address] [place], [place] [address] PCP - General Internal Medicine 07/12/16 Weston Crespo MD [address] [facility] [phone] Consulting Neurosurgery 01/26/19 Upsetting Machine Operator Relationship Specialty Start Date End Date Malu Rowe MD [address] [place], [place] [address]871 PCP - General Internal Medicine 07/12/16 Weston Crespo MD [address] [facility] [place] [phone] Consulting Neurosurgery 01/26/19 Upsetting Machine Operator Relationship Specialty Start Date End Date Malu Rowe MD [address] [place] [address] PCP - General Internal Medicine 07/12/16 Weston Crespo MD [address] [facility] [place] [place] [address] Consulting Neurosurgery 01/26/19 Upsetting Machine Operator Relationship Specialty Start Date End Date Malu Rowe MD [address] [place] [address] PCP - General Internal Medicine 07/12/16 Weston Crespo MD [address] [facility] [place] [place] [address] Consulting Neurosurgery 01/26/19 Upsetting Machine Operator Relationship Specialty Start Date End Date Malu Rowe MD [address] [place] [address] PCP - General Internal Medicine 07/12/16 Weston Crespo MD [address] [facility] [place] [address] Consulting Neurosurgery 01/26/19 Upsetting Machine Operator Relationship Specialty Start Date End Date Malu Rowe MD [address] [place] [address] PCP - General Internal Medicine 07/12/16 Weston Crespo MD [address] [facility] [place] [place] [address] Consulting Neurosurgery 01/26/19 Upsetting Machine Operator Relationship Specialty Start Date End Date Malu Rowe MD [address] [place] [address] PCP - General Internal Medicine 07/12/16 Weston Crespo MD [address] [facility] [place] [address] Consulting Neurosurgery 01/26/19 Upsetting Machine Operator Relationship Specialty Start Date End Date Malu Rowe MD [address] [place] [address] PCP - General Internal Medicine 07/12/16 Weston Crespo MD [address] [facility] [place] [address] Consulting Neurosurgery 01/26/19 Upsetting Machine Operator Relationship Specialty Start Date End Date Malu Rowe MD [address] [place] [address] PCP - General Internal Medicine 07/12/16 Weston Crespo MD [address] [facility] [address] Consulting Neurosurgery 01/26/19 Upsetting Machine Operator Relationship Specialty Start Date End Date Malu Rowe MD [address] [place] [address] PCP - General Internal Medicine 07/12/16 Weston Crespo MD [address] [facility] [place] [address] Consulting Neurosurgery 01/26/19 Upsetting Machine Operator Relationship Specialty Start Date End Date Malu Rowe MD [address] [place] [address] PCP - General Internal Medicine 07/12/16 Weston Crespo MD [address] [facility] [place] [address] Consulting Neurosurgery 01/26/19 Upsetting Machine Operator Relationship Specialty Start Date End Date Kesha Boone, SUPERVISOR BLOOD DONOR RECRUITERS.ABALONE PROCESSOR [address] [place] [address] PCP - General Internal Medicine 08/21/22 Weston Crespo MD [address] [facility] [place] [place] [address] Consulting Neurosurgery 01/26/19 Upsetting Machine Operator Relationship Specialty Start Date End Date Kesha Boone, SUPERVISOR BLOOD [employer]OR [employer].ABALONE PROCESSOR [address] [place] [address] PCP - General Internal Medicine 08/21/22 Weston Crespo MD [address] [facility] [place] [place] [address] Consulting Neurosurgery 01/26/19 Upsetting Machine Operator Relationship Specialty Start Date End Date Kseha Boone, SUPERVISOR BLOOD DONOR [employer]UIT[employer].ABALONE PROCESSOR [address] [place] [address] PCP - General Internal Medicine 08/21/22 Weston Crespo MD [address] [facility] [place] [place] [address] Consulting Neurosurgery 01/26/19 Upsetting Machine Operator Relationship Specialty Start Date End Date Kesha Boone, SUPERVISOR BLOOD [employer].ABALONE PROCESSOR [address] [place] [address] PCP - General Internal Medicine 08/21/22 Weston Crespo MD [address] [facility] [place] [address] Consulting Neurosurgery 01/26/19 Upsetting Machine Operator Relationship Specialty Start Date End Date Kesha Boone, SUPERVISOR BLOOD [employer].ABALONE PROCESSOR [address] [place] [address] PCP - General Internal Medicine 08/21/22 Weston Crespo MD [address] [facility] [place] [address] Consulting Neurosurgery 01/26/19 Upsetting Machine Operator Relationship Specialty Start Date End Date Kesha Boone, SUPERVISOR BLOOD [employer]OR [employer].ABALONE PROCESSOR [address] [place] [address] PCP - General Internal Medicine 08/21/22 Weston Crespo MD [address] [facility] [place] [phone] Consulting Neurosurgery 01/26/19 Upsetting Machine Operator Relationship Specialty Start Date End Date Kesha Boone, SUPERVISOR BLOOD [employer]OR [employer].ABALONE PROCESSOR [address] [place] [address] PCP - General Internal Medicine 08/21/22 Weston Crespo MD [address] [facility] [place] [address] Consulting Neurosurgery 01/26/19 Upsetting Machine Operator Relationship Specialty Start Date End Date Kesha Boone, SUPERVISOR BLOOD DONOR RE[employer]UIT[employer].ABALONE PROCESSOR [address] [place] [address] PCP - General Internal Medicine 08/21/22 Weston Crespo MD [address] [facility] [place] [address] Consulting Neurosurgery 01/26/19 Upsetting Machine Operator Relationship Specialty Start Date End Date Kesha Boone, SUPERVISOR BLOOD DONOR [employer].ABALONE PROCESSOR [address] [place] [address] PCP - General Internal Medicine 08/21/22 Weston Crespo MD [address] [facility] [place] [address] Consulting Neurosurgery 01/26/19 Upsetting Machine Operator Relationship Specialty Start Date End Date Kesha Boone, SUPERVISOR BLOOD DONOR RE[employer].ABALONE PROCESSOR [address] [place], [place] [address]107[address] [phone] PCP - General Internal Medicine 08/21/22 Weston Crespo MD [address] [facility] [place] [address] Consulting Neurosurgery 01/26/19 Upsetting Machine Operator Relationship Specialty Start Date End Date Kesha Boone, SUPERVISOR BLOOD DONOR RE[employer]UITERS.ABALONE PROCESSOR [address] [place] [address] PCP - General Internal Medicine 08/21/22 Weston Crespo MD [address] [facility] [place] [address] Consulting Neurosurgery 01/26/19 Upsetting Machine Operator Relationship Specialty Start Date End Date Kesha Boone, SUPERVISOR BLOOD DONOR RE[employer].ABALONE PROCESSOR [address] [place] [address] PCP - General Internal Medicine 08/21/22 Weston Crespo MD [address] [facility] [place] [address] Consulting Neurosurgery 01/26/19 Upsetting Machine Operator Relationship Specialty Start Date End Date Kesha Boone, SUPERVISOR BLOOD DONOR RE[employer]UIT[employer].ABALONE PROCESSOR [address] [place], [place] [id number] [phone] PCP - General Internal Medicine 08/21/22 Weston Crespo MD [address] [facility] [place] [address] Consulting Neurosurgery 01/26/19 Upsetting Machine Operator Relationship Specialty Start Date End Date Kesha Boone, SUPERVISOR BLOOD DONOR RE[employer]UIT[employer].ABALONE PROCESSOR [address] [place], [place] [address]27431 PCP - General Internal Medicine 08/21/22 Weston Crespo MD [address] [facility] [place] [address] Consulting Neurosurgery 01/26/19 Upsetting Machine Operator Relationship Specialty Start Date End Date Kesha Boone, SUPERVISOR BLOOD DONOR RE[employer].ABALONE PROCESSOR [address] [place], [place] [address] PCP - General Internal Medicine 08/21/22 Weston Crespo MD [address] [place] [phone] Consulting Neurosurgery 01/26/19 Team Status: Active Member Role Status Dates Dr. Malu Rowe MD Family Provider Active Dr. Malu Rowe MD Primary Care Provider Active Team Status: Inactive Member Role Status Dates Dr. Malu Rowe MD Primary Care Provider, Referr ing Provider Active Beth Funk GLASS UNLOADING EQUIPMENT TENDER, GLASS UNLOADING EQUIPMENT TENDER-C Attending Provider Active Team Status: Inactive Member Role Status Dates Dr. Malu Rowe MD Primary Care Provider Active Dr. Elias Rider II, MD Attending Provider, Referring Pro vider Active Upsetting Machine Operator Relationship Specialty Start Date End Date Malu Rowe MD [address] [place], [place] [id number] PCP - General Internal Medicine 12/27/19 Upsetting Machine Operator Relationship Specialty Start Date End Date Kesha Boone, SUPERVISOR BLOOD DONOR [employer].ABALONE PROCESSOR [address] [place] [address] PCP - General Internal Medicine 08/21/22 Weston Crespo MD [address] [facility] [place] [address] Consulting Neurosurgery 01/26/19 Upsetting Machine Operator Relationship Specialty Start Date End Date Malu Rowe MD [address] [place] [address] PCP - General Internal Medicine 05/02/23 Weston Crespo MD [address] [facility] [place] [address] Consulting Neurosurgery 01/26/19 Upsetting Machine Operator Relationship Specialty Start Date End Date Kesha Boone, SUPERVISOR BLOOD DONOR RECRUITERS.ABALONE PROCESSOR [address] [place] [address] PCP - General Internal Medicine 08/21/22 05/01/23 Weston Crespo MD [address] [facility] [place] [address] Consulting Neurosurgery 01/26/19 Upsetting Machine Operator Relationship Specialty Start Date End Date Malu Rowe MD [address] [facility] [place] [address] PCP - General Internal Medicine 05/02/23 Weston Crespo MD [address] [facility] [address] Consulting Neurosurgery 01/26/19 Upsetting Machine Operator Relationship Specialty Start Date End Date Malu Rowe MD [address] [place], [place] [address]95[address] PCP - General Internal Medicine 12/27/19 Upsetting Machine Operator Relationship Specialty Start Date End Date Malu Rowe MD [address] [place], [place] 513161 PCP - General Internal Medicine 05/02/23 Weston Crespo MD [address] [facility] [place] [address] Consulting Neurosurgery 01/26/19 Upsetting Machine Operator Relationship Specialty Start Date End Date Malu Rowe MD [address] [place], [place] 176941 PCP - General Internal Medicine 05/02/23 Weston Crespo MD [address] [facility] [address] Consulting Neurosurgery 01/26/19 Upsetting Machine Operator Relationship Specialty Start Date End Date Malu Rowe MD [address] [place], [place] 217581 PCP - General Internal Medicine 05/02/23 Weston Crespo MD [address] [facility] [place] [address] Consulting Neurosurgery 01/26/19 Upsetting Machine Operator Relationship Specialty Start Date End Date Malu Rowe MD [address] [place] [address] PCP - General Internal Medicine 05/02/23 Weston Crespo MD [address] [place] [phone] Consulting Neurosurgery 01/26/19 Upsetting Machine Operator Relationship Specialty Start Date End Date Malu Rowe MD [address] [place] [address] PCP - General Internal Medicine 05/02/23 Weston Crespo MD [address] [place] [address] Consulting Neurosurgery 01/26/19 Upsetting Machine Operator Relationship Specialty Start Date End Date Malu Rowe MD [address] [place] [address] PCP - General Internal Medicine 05/02/23 Weston Crespo MD [address] [place] [address] Consulting Neurosurgery 01/26/19 Upsetting Machine Operator Relationship Specialty Start Date End Date Malu Rowe MD [address] [place] [address] PCP - General Internal Medicine 05/02/23 Weston Crespo MD [address] [facility] [place] [phone] Consulting Neurosurgery 01/26/19 Upsetting Machine Operator Relationship Specialty Start Date End Date Paolo KeshaGOLDIE hung.ABALONE PROCESSOR [address] [facility] [place] [address] PCP - General Internal Medicine 08/21/22 05/01/23 Weston Crespo MD [address] [facility] [place] [phone] Consulting Neurosurgery 01/26/19 Upsetting Machine Operator Relationship Specialty Start Date End Date Malu Rowe MD [address] [place], [place] 764051 PCP - General Internal Medicine 05/02/23 Weston Crespo MD [address] [facility] [place] [phone] Consulting Neurosurgery 01/26/19 Upsetting Machine Operator Relationship Specialty Start Date End Date Malu Rowe MD [address] [facility] [place] [address] PCP - General Internal Medicine 05/02/23 Weston Crespo MD [address] [facility] [place] [phone] Consulting Neurosurgery 01/26/19 Upsetting Machine Operator Relationship Specialty Start Date End Date Malu Rowe MD [address] [place], [place] 096161 PCP - General Internal Medicine 05/02/23 Weston Crespo MD [address] [facility] [place] [phone] Consulting Neurosurgery 01/26/19 Upsetting Machine Operator Relationship Specialty Start Date End Date Malu Rowe MD [address] [facility] [place] [address] PCP - General Internal Medicine 05/02/23 Weston Crespo MD [address] [facility] [place] [phone] Consulting Neurosurgery 01/26/19 Upsetting Machine Operator Relationship Specialty Start Date End Date Kesha Boone APRN.ABALONE PROCESSOR [address] [place] [address] PCP - General Internal Medicine 08/21/22 Weston Crespo MD [address] [facility] [place] [phone] Consulting Neurosurgery 01/26/19 Upsetting Machine Operator Relationship Specialty Start Date End Date Malu Rowe MD [address] [place] [address] PCP - General Internal Medicine 05/19/23 Upsetting Machine Operator Relationship Specialty Start Date End Date Malu Rowe MD [address] [place] [address] PCP - General Internal Medicine 05/02/23 Weston Crespo MD [address] [facility] [phone] Consulting Neurosurgery 01/26/19 Kesha Boone, SUPERVISOR BLOOD DONOR RECRUITERS.ABALONE PROCESSOR [address] [place], [place] 169151 [facility] Internal Medicine 07/12/24 Irlanda Canela SUPERVISOR BLOOD DONOR RECRUITERS.DEVICE REPAIR TECHNICIAN [address] [place], [place] [id number] [facility] Internal Medicine 07/12/24 Upsetting Machine Operator Relationship Specialty Start Date End Date Malu Rowe MD [address] [place], [place] [id number] PCP - General Internal Medicine 05/02/23 Weston Crespo MD [address] [place] [phone] Consulting Neurosurgery 01/26/19 Kesha Boone, SUPERVISOR BLOOD DONOR RECRUITERS.ABALONE PROCESSOR [address] [place], [place] 918321 [facility] Internal Medicine 07/12/24 Irlanda Canela SUPERVISOR BLOOD DONOR RECRUITERS.DEVICE REPAIR TECHNICIAN [address] [place], [place] [id number] [facility] Internal Medicine 07/12/24 Upsetting Machine Operator Relationship Specialty Start Date End Date Malu Rowe MD [address] [place], [place] [id number] PCP - General Internal Medicine 05/02/23 Weston Crespo MD [address] [facility] [place] [phone] Consulting Neurosurgery 01/26/19 Kesha Boone, SUPERVISOR BLOOD DONOR RECRUITERS.ABALONE PROCESSOR [address] [place], [place] 944921 [facility] Internal Medicine 07/12/24 Irlanda Canela SUPERVISOR BLOOD DONOR RECRUITERS.DEVICE REPAIR TECHNICIAN [address] [place], [place] 078601 [facility] Internal Medicine 07/12/24 Upsetting Machine Operator Relationship Specialty Start Date End Date Malu Rowe MD [address] [place], [place] 853031 PCP - General Internal Medicine 05/02/23 Weston Crespo MD [address] [place] [phone] Consulting Neurosurgery 01/26/19 Kesha Boone, SUPERVISOR BLOOD DONOR RECRUITERS.ABALONE PROCESSOR [address] [place], [place] 351241 [facility] Internal Medicine 07/12/24 Irlanda Canela SUPERVISOR BLOOD DONOR RECRUITERS.DEVICE REPAIR TECHNICIAN [address] [place], [place] 269981 [facility] Internal Medicine 07/12/24 Upsetting Machine Operator Relationship Specialty Start Date End Date Malu Rowe MD [address] [place], [place] [id number] PCP - General Internal Medicine 05/02/23 Weston Crespo MD [address] [place] [phone] Consulting Neurosurgery 01/26/19 Kesha Boone, SUPERVISOR BLOOD DONOR RECRUITERS.ABALONE PROCESSOR [address] [place], [place] 759281 [employer] Internal Medicine 07/12/24 Irlanda Canela SUPERVISOR BLOOD DONOR RECRUITERS.DEVICE REPAIR TECHNICIAN [address] [facility] [place] 15[address] [employer] Internal Medicine 10/26/24 Upsetting Machine Operator Relationship Specialty Start Date End Date Malu Rowe MD [address] [facility] [place] 84[address] PCP - General Internal Medicine 05/02/23 Weston Crespo MD [address] [facility] [place] [phone] Consulting Neurosurgery 01/26/19 Kesha Boone, SUPERVISOR BLOOD DONOR RECRUITERS.ABALONE PROCESSOR [address] [place] [address] [facility] Internal Medicine 07/12/24 Irlanda Canela SUPERVISOR BLOOD DONOR RECRUITERS.DEVICE REPAIR TECHNICIAN [address] [place], [place] 663841 [facility] Internal Medicine 10/26/24 Upsetting Machine Operator Relationship Specialty Start Date End Date Malu Rowe MD [address] [facility] [place] [address] PCP - General Internal Medicine 05/02/23 Weston Crespo MD [address] [place] [phone] Consulting Neurosurgery 01/26/19 Kesha Boone, SUPERVISOR BLOOD DONOR RECRUITERS.ABALONE PROCESSOR [address] [place] [address] [employer] Internal Medicine 07/12/24 Irlanda Canela SUPERVISOR BLOOD DONOR RECRUITERS.DEVICE REPAIR TECHNICIAN [address] [place] [address] [employer] Internal Medicine 10/26/24 Upsetting Machine Operator Relationship Specialty Start Date End Date Malu Rowe MD [address] [facility] [place] [place] 200[address] PCP - General Internal Medicine 05/02/23 Weston Crespo MD [address] [place] [phone] Consulting Neurosurgery 01/26/19 Kesha Boone, SUPERVISOR BLOOD DONOR RECRUITERS.ABALONE PROCESSOR [address] [place] [address] [employer] Internal Medicine 07/12/24 Irlanda Canela SUPERVISOR BLOOD DONOR RECRUITERS.DEVICE REPAIR TECHNICIAN [address] [place] [address] [employer] Internal Medicine 10/26/24 Upsetting Machine Operator Relationship Specialty Start Date End Date Malu Rowe MD [address] [facility] [place] 24[address]41 PCP - General Internal Medicine 05/02/23 Weston Crespo MD [address] [place] [phone] Consulting Neurosurgery 01/26/19 Kesha Boone SUPERVISOR BLOOD DONOR RECRUITERS.ABALONE PROCESSOR [address] [place] [address] [employer] Internal Medicine 07/12/24 Irlanda Canela APRN.DEVICE REPAIR TECHNICIAN [address] [place] [address] [employer] Internal Medicine 10/26/24 Upsetting Machine Operator Relationship Specialty Start Date End Date Malu Rowe MD [address] [place] [address] PCP - General Internal Medicine 05/02/23 Weston Crespo MD [address] [place] [phone] Consulting Neurosurgery 01/26/19 Kesha Boone, SUPERVISOR BLOOD DONOR RECRUITERS.ABALONE PROCESSOR [address] [place] [address] [employer] Internal Medicine 07/12/24 Irlanda Canela APRN.DEVICE REPAIR TECHNICIAN [address] [place] [address] [employer] Internal Medicine 10/26/24 Upsetting Machine Operator Relationship Specialty Start Date End Date Malu Rowe MD [address] [place] [address] PCP - General Internal Medicine 05/02/23 Weston Crespo MD [address] [place] [phone] Consulting Neurosurgery 01/26/19 Irlanda Canela APRN.DEVICE REPAIR TECHNICIAN [address] [place] [address] [employer] Internal Medicine 10/26/24 Kesha Boone APRN.ABALONE PROCESSOR [address] [place] [address] [employer] Internal Medicine 12/22/24 Upsetting Machine Operator Relationship Specialty Start Date End Date Malu Rowe MD [address] [place] [address] PCP - General Internal Medicine 05/02/23 Weston Crespo MD [address] [place] [address] [place] [phone] Consulting Neurosurgery 01/26/19 Irlanda Canela SUPERVISOR BLOOD DONOR RECRUITERS.DEVICE REPAIR TECHNICIAN [address] [place] [address] [employer] Internal Medicine 10/26/24 Kesha Boone APRN.ABALONE PROCESSOR [address] [place] [address] [employer] Internal Medicine 12/22/24 Upsetting Machine Operator Relationship Specialty Start Date End Date Malu Rowe MD [address] [place] [address] PCP - General Internal Medicine 05/19/23 Upsetting Machine Operator Relationship Specialty Start Date End Date Malu Rowe MD [address] [place] [address] PCP - General Internal Medicine 05/02/23 Weston Crespo MD [address] [place] [address] Consulting Neurosurgery 01/26/19 Irlanda Canela APRN.DEVICE REPAIR TECHNICIAN [address] [place], [place] 816721 [employer] Internal Medicine 10/26/24 Kesha Boone APRN.ABALONE PROCESSOR [address] [place], [place] 152501 [employer] Internal Medicine 12/22/24 Upsetting Machine Operator Relationship Specialty Start Date End Date Malu Rowe MD [address] [place], [place] 367861 PCP - General Internal Medicine 05/02/23 Weston Crespo MD [address] [place] [address] Consulting Neurosurgery 01/26/19 Irlanda Canela APRN.DEVICE REPAIR TECHNICIAN [address] [place], [place] 894961 [employer] Internal Medicine 10/26/24 Kesha Boone APRN.ABALONE PROCESSOR [address] [place], [place] 9029[address] [employer] Internal Medicine 12/22/24 Team Status: Inactive Member Role Status Dates Dr. Malu Rowe MD Primary Care Provider Active Start: December 30, 2024 End: December 30, 2024 Dr. Elias Rider II, MD Attending Provider Active S tart: December 30, 2024 End: December 30, 2024 Dr. Elias Rider II, MD Referring Provider Active S tart: December 30, 2024 End: December 30, 2024 Upsetting Machine Operator Relationship Specialty Start Date End Date Malu Rowe MD [address] [facility] [place] [address] PCP - General Internal Medicine 05/02/23 Weston Crespo MD [address] [place] [address] Consulting Neurosurgery 01/26/19 Irlanda Canela SUPERVISOR BLOOD DONOR RECRUITERS.DEVICE REPAIR TECHNICIAN [address] [facility] [place] [address] [employer] Internal Medicine 10/26/24 Kesha Boone APRN.ABALONE PROCESSOR [address] [facility] [place] [address] [employer] Internal Medicine 12/22/24 Team Status: Active Member [...] March 07, 2025 End: March 07, 2025 Upsetting Machine Operator Relationship Specialty Start Date End Date Malu Rowe MD [address] [place] [address] PCP - General Internal Medicine 05/02/23 Weston Crespo MD [address] [facility] [place] [phone] Consulting Neurosurgery 01/26/19 Irlanda Canela SUPERVISOR BLOOD DONOR RECRUITERS.DEVICE REPAIR TECHNICIAN [address] [facility] [place] [address] [employer] Internal Medicine 10/26/24 Kesha Boone, SUPERVISOR BLOOD DONOR RECRUITERS.ABALONE PROCESSOR [address] [facility] [place] [facility] [id number] [employer] Internal Medicine 12/22/24 Team Status: Inactive Member [...] 1,000 mg, ORAL, ONCE, 1 dose, On Page 11/13/23 at 1100, No more than 4000 mg [...] over 15 Minutes, ONCE, 1 dose, On Page 11/13/23 at 1100, Hazardous Potential Reproductive Risk Drug: [...] BE BASED ON THE PRIMARY CLINICAL RECORDS. [facility]. provides no warranty or guarantee of the accuracy or completeness of information in this document.
[2025-07-05] MEDS: Lactated Ringers 1,000 ML 15 ML IV (06:53)
--- NOTE | 2025-07-05 08:02 | PCM.HP.STD ---
[facility] - General General Date of Service: 07/05/25 HPI Narrative XANDER GOMEZ, is a 69 M who presents lipoma excision of his back. Ultrasound sound showed suggestion of a lipoma. He underwent cardiac clearance and had repeat stress test and echo and we were notified he is ok to proceed to his surgery. He denies changes to his medical health since his last visit. Denies fever, chills, nausea, vomiting, dental infection, new rash. HPI from 05/20/25: Patient is a 69-year-old male presenting today with his and cheek, left forehead and left upper back patient. He is a former patient of Dr. Woodall's and had several lesions drained many years ago. He denies drainage from any of the lesions. He noticed the lump on his back has been growing bigger and makes it uncomfortable to lay on it. He has history of hypertension, hyperlipidemia, carotid artery disease s/p left and right CEA, severe peripheral vascular disease. He take aspirin daily, not on any other antiplatelets or blood thinners. He denies diabetes, poor scarring or keloid formation. He's a former smoker, Denies fever, chills, unintentional weight loss, lymph node swelling. 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 CVA (cerebral vascular accident) Peripheral vascular disease Carotid artery stenosis Vitamin D deficiency Enlarged prostate Home Medications Medication Instructions Recorded Last Taken Type albuterol sulfate 90 mcg/actuation 2 puff inhalation Q4H PRN PRN 11/14/18 Unknown Rx aerosol inhaler Wheezing ##1 citalopram 40 mg tablet 40 mg PO DAILY depression 02/11/20 10/16/20 History mometasone-formoterol HFA 100 2 puff inhalation BID sob 02/11/20 Unknown History mcg-5 mcg/actuation aerosol inhaler finasteride 5 mg tablet (Proscar) 5 mg PO DAILY 03/17/24 Unknown History tamsulosin 0.4 mg capsule (Flomax) 0.4 mg PO QHS 03/17/24 Unknown History amlodipine 5 mg tablet 5 mg PO DAILY daily #90 tabs 03/29/25 Unknown Rx cholecalciferol (vitamin D3) 125 125 mcg PO QDAY 03/29/25 Unknown History mcg (5,000 unit) capsule rosuvastatin 40 mg tablet (Crestor) 40 mg PO DAILY #90 tabs 03/29/25 Unknown Rx aspirin 81 mg tablet,delayed 81 mg PO QDAY #90 tabs 06/02/25 06/28/25 Rx release (Adult Aspirin Regimen) Allergy/AdvReac Type Severity Reaction Status Date / Time No Known Allergies Allergy Verified 07/05/25 06:47 Family History Mother , MOTHER FROM HEART DISEASE CAD (coronary artery disease) CVA (cerebral vascular accident) Heart disease Brother Hypertension Father , FATHER FROM BLACK LUNG, WORKED IN THE [employer] No problems noted. Brother , AT No problems noted. Brother , FROM LUNG CANCER Lung cancer Surgical History Hx of colonoscopy History of endarterectomy History of angioplasty of vein Hx of bilateral cataract extraction (~11/07/22) Carotid artery aneurysm History of left knee surgery History of tonsillectomy Right cornea abrasion History of epidermal inclusion cyst excision Social History Smoking Status: Former smoker how long ago did patient quit smoking: quit 4 months ago alcohol intake: never substance use type: does not use additional social history: pt denies vaping, denies edibles,denies marijuana use, Pt uses aspirin daily pt denies ibuprofen use, denies blood clots ROS ROS Narrative General: Denies fever, chills HEENT: Denies headaches, vision changes, sore throat Cardio: Denies chest pain, leg edema Pulmonary: Denies shortness of pain, cough, wheezing GI: Denies nausea, vomiting, diarrhea Vital Signs Vital Signs Vital Signs: 07/05/25 06:48 07/05/25 06:48 07/05/25 06:53 Temperature 97.4 F L Temperature Source Temporal Pulse Rate 67 Respiratory Rate 14 Respiratory Pattern Normal Blood Pressure 137/80 H Blood Pressure Mean 99 Blood Pressure Source Monitor Blood Pressure Position Supine Blood Pressure Location Left Arm Baseline BP 137/80 Pulse Ox 99 Oxygen Delivery Method Room Air Weight Weight: 149 lb 14.629 oz Body Mass Index (BMI) 22.8 Physical Exam Narrative Afebrile/VSS. Left upper back 14cm by 8.5cm mobile, nontender, well circumscribed mass No auricular, submandibular, axillary lymphadenopathy Assessment & Plan Assessment/Plan (1) Subcutaneous mass of back: PLAN: Plan Ancef for surgical ppx. Same day discharge.
--- NOTE | 2025-07-05 08:07 | PCM.PRE.AN2 ---
ASA Classification* ASA Classification ASA Classification: 3 Assessment & Plan Anesthesia* Anesthesia Assessment Anesthesia Assessment: Discussed sedation and/or anesthesia options, risks, benefits, and alternatives with patient/parents/legal guardian/POA. Questions invited. The patient/parents/legal guardian/POA seems to understand and agrees to proceed with anesthesia plan. Reviewed the physical assessment, medical history, allergy history and patient home medications list prior to surgery/procedure/anesthetic and documented any changes. Performed airway and anesthesia risk assessments. Anesthesia Type Anesthesia Type: General History Source History Obtained from:: Patient and Chart Anesthesia Focused Assessment* Temperature: 97.4 F Pulse Rate: 67 Blood Pressure: 137/80 Respiratory Rate: 14 Pulse Ox: 99 Oxygen Delivery Method: Room Air Airway Assessment Mouth opens: >3 cm Mallampati Score: I Teeth Condition: Missing (Patient is edentulous.) Neck Range of motion (ROM): Limited ROM (Severe Restriction) Labs Anesthesia Preop lab: CBC WBC, (4.4-11.0) 6.9 K/mm3 03/07/25, 12:52 RBC, (4.6-6.2) 4.27 M/mm3 L 03/07/25, 12:52 Hgb, (13.0-16.5) 14.0 g/dL 03/07/25, 12:52 Hct, (40-54) 41.4 % 03/07/25, 12:52 Plt Count, (150-450) 205 K/mm3 03/07/25, 12:52 CHEMISTRY Potassium, (3.3-5.1) 4.3 mmol/L 03/07/25, 12:52 Sodium, (133-145) 139 mmol/L 03/07/25, 12:52 BUN, (4-19) 15 mg/dL 03/07/25, 12:52 Creatinine, (0.70-1.20) 0.87 mg/dL 03/07/25, 12:52 Glucose, (70-99) 84 mg/dL 03/07/25, 12:52 TSH, (0.358-3.74) 1.06 uIU/mL 02/01/14, 08:25 COAG PT, (11.7-14.9) 13.8 SECONDS 06/24/19, 13:45 Pre-Assessment Diagnosis/Proposed Procedure Planned Operative Procedure(s): EXCISION OF LIPOMA ON BACK Anesthesia History Anesthesia History - e commerce developer: Anesthesia History - e commerce developer Hx Hospitalization No 06/23/25 16:46 Any Problems With Anesthesia No 06/23/25 16:46 Cholinesterase deficiency No 06/23/25 16:46 You/Your Family Experience No 06/23/25 16:46 fever (hyperthermia) with Relationship Recent Exposure to Contagious No 07/05/25 06:48 Disease Does patient have nerve No 06/23/25 16:46 stimulator Patient instructed to have device shut off --Does patient have Pacemaker No 07/05/25 06:48 or ICD? When Was Last Pacemaker Check QUESTION #4 FULL TEXT: You/Your Family Experience fever (hyperthermia) with Anesthesia Last Oral Intake Last Oral intake: Last Oral Intake NPO since 16:00 07/05/25 06:48 Meds taken in AM with sips of No 07/05/25 06:48 water? Meds patient instructed to take am of surgery PONV PONV - e commerce developer: PONV - e commerce developer Female No 06/23/25 16:46 HX of Motion Sickness No 06/23/25 16:46 HX of N/V After Surgery No 06/23/25 16:46 Non-Smoker Yes 06/23/25 16:46 Duration of Surgery greater Yes 06/23/25 16:46 than 60 minutes Number of Risk Factors 2 06/23/25 16:46 PONV Score Moderate Risk 06/23/25 16:46 Height & Weight Height & Weight: Anesthesia: Height & Weight Height 5 ft 8 in 07/05/25 06:48 Weight: 68 kg 07/05/25 06:48 Body Mass Index (BMI) 22.8 07/05/25 06:48 Respiratory Assessment Respiratory Assessment - e commerce developer: Respiratory Tract Infection Hx - e commerce developer Hx Respiratory Tract Infection No 06/23/25 16:46 STOP Sleep Apnea STOP Sleep Apnea - e commerce developer: STOP Sleep Apnea - e commerce developer Hx Hypertension Yes: CONTROLLED WITH MED 06/23/25 16:46 Hx Sleep Apnea Yes 06/23/25 16:46 CPAP Yes: NONCOMPLIANT 06/23/25 16:46 BIPAP No 06/23/25 16:46 Do you snore loudly (louder No 06/23/25 16:46 than talking or can be heard Do you often feel tired/ No 06/23/25 16:46 fatigued/ sleepy during daytime? Has anyone observed you stop No 06/23/25 16:46 breathing during sleep? STOP Results Positive 06/23/25 16:46 QUESTION #5 FULL TEXT : Do you snore loudly (louder than talking or can be heard through closed doors)? 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 Specify any problems Hx of Preganancy in last 3 N/A 06/23/25 16:46 Months Nurse Filling Out Transfusion [email or web address] 06/23/25 16:46 & Questions: Date: 06/23/25 06/23/25 16:46 Time: 16:50 06/23/25 16:46 Patient unable to answer at this time (ie. confused, unrespo /Reproduction History /Reproductive History - e commerce developer: /Reproductive Hx- e commerce developer Hx Now No 06/23/25 16:46 Gestational Age (in weeks): EDC: Hx Hx Para Hx Section SAB No 06/23/25 16:46 Does the father of the baby or his family experience fever w Father of the baby Malignant Hypertension history comment Active Medications Active Medications: Current Medications Generic Name Dose Route Start Last Admin Trade Name Freq PRN Reason Stop Dose Admin Lactated Ringer's 1,000 mls @ 15 mls/hr 07/05/25 06:45 07/05/25 06:53 IV 15 mls/hr .Q48H SAMMI Administration PFSH Medical History Wears glasses Complete edentulism, class III Depression Alcohol use Bladder disease Former smoker COPD (chronic obstructive pulmonary disease) CPAP (continuous positive airway pressure) dependence History of echocardiogram History of stress test Cardiology follow-up encounter Lipoma of forehead Epidermal inclusion cyst Subcutaneous mass of back Hypertension Glaucoma 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 CVA (cerebral vascular accident) Peripheral vascular disease Carotid artery stenosis Vitamin D deficiency Enlarged prostate Home Medications Medication Instructions Recorded Last Taken Type albuterol sulfate 90 mcg/actuation 2 puff inhalation Q4H PRN PRN 11/14/18 Unknown Rx aerosol inhaler Wheezing ##1 citalopram 40 mg tablet 40 mg PO DAILY depression 02/11/20 10/16/20 History mometasone-formoterol HFA 100 2 puff inhalation BID sob 02/11/20 Unknown History mcg-5 mcg/actuation aerosol inhaler finasteride 5 mg tablet (Proscar) 5 mg PO DAILY 03/17/24 Unknown History tamsulosin 0.4 mg capsule (Flomax) 0.4 mg PO QHS 03/17/24 Unknown History amlodipine 5 mg tablet 5 mg PO DAILY daily #90 tabs 03/29/25 Unknown Rx cholecalciferol (vitamin D3) 125 125 mcg PO QDAY 03/29/25 Unknown History mcg (5,000 unit) capsule rosuvastatin 40 mg tablet (Crestor) 40 mg PO DAILY #90 tabs 03/29/25 Unknown Rx aspirin 81 mg tablet,delayed 81 mg PO QDAY #90 tabs 06/02/25 06/28/25 Rx release (Adult Aspirin Regimen) Allergy/AdvReac Type Severity Reaction Status Date / Time No Known Allergies Allergy Verified 07/05/25 06:47 Family History Mother , MOTHER FROM HEART DISEASE CAD (coronary artery disease) CVA (cerebral vascular accident) Heart disease Brother Hypertension Father , FATHER FROM BLACK LUNG, WORKED IN THE [employer] No problems noted. Brother , AT No problems noted. Brother , FROM LUNG CANCER Lung cancer Surgical History Hx of colonoscopy History of endarterectomy History of angioplasty of vein Hx of bilateral cataract extraction (~11/07/22) Carotid artery aneurysm History of left knee surgery History of tonsillectomy Right cornea abrasion History of epidermal inclusion cyst excision Social History Smoking Status: Former smoker how long ago did patient quit smoking: quit 4 months ago alcohol intake: never substance use type: does not use additional social history: pt denies vaping, denies edibles,denies marijuana use, Pt uses aspirin daily pt denies ibuprofen use, denies blood clots Review of Systems (Anesthesia) ROS Narrative System reviewed and no additional complaints, except as documented.
[2025-07-05] MEDS: Lactated Ringers 1,000 ML 1000 ML IV (09:13)
[2025-07-05] MEDS: Midazolam 2 MG/2 ML Syringe IV (09:13)
[2025-07-05] MEDS: Cefazolin 1 GM/5 ML Vial 2 GM IV (09:14)
[2025-07-05] MEDS: Lidocaine 1% (5 ml sdv) 5 ML Vial IV (09:18)
--- NOTE | 2025-07-05 09:30 | LIP_PTH ---
PATIENT: XANDER GOMEZ LOC: [facility] [place] [facility] [place][id number] AGE/SX: 69/M ROOM: RE07/05/[address]: Dr. Conner Thorne MD : [id number] BED: DIS: 07/05/2025 SPEC #: [id number] RECD: 07/05/25 11:25 STATUS: MICAH MK #: [id number] MARCUS: 07/05/25 09:[address]: Conner Thorne DEPT: SURGICAL PATHOLOGY RECD BY: Chris Head ENTERED: 07/05/25 11:32 SP TYPE: LIPOMA OTHR DR: Dr. Carli Shell MD Tissues: A - Soft tissues, NOS Procedures: Surgery Specimen Level III HEADER OPERATION: Excision of lipoma on back (14cm x 8.5cm) PRE-OP DIAGNOSIS: Subcutaneous mass of back TISSUE SUBMITTED: A- Back mass MICROSCOPIC DIAGNOSIS A. Soft tissue, back, "subcutaneous mass", excision: - Mature adipose consistent with lipoma. MICROSCOPIC DESCRIPTION Slides are reviewed. GROSS DESCRIPTION A. Received in formalin labeled with the patient's name and date of . Designated as " back mass" is a is a 13.3 x 9.2 x 2.0 cm peña-yellow lobulated soft tissue mass devoid of orientation. There is an attached, 10.9 x 7.1 cm pink-red, cauterized portion of semimembranous tissue. The mass is inked black and the semimembranous tissue is inked orange. Sectioning reveals lobulated, homogenous cut surfaces throughout. Audio/Video Engineer sections are submitted in 3 cassettes. MA 07/05/2025 CPT:01549
[2025-07-05] MEDS: fentaNYL 100 MCG/2 ML Ampul IV (10:06)
[2025-07-05] MEDS: Lidocaine 1% /Epi 1:100 (20ml) 20 ML Vial (10:19)
[2025-07-05] MEDS: Bupiv/Epi 0.25% 30 ML Vial (10:19)
--- NOTE | 2025-07-05 10:42 | PCM.OPRPT ---
Operative Report (Standard) Operative Information Date of Procedure: 07/05/25 Pre-Operative Diagnosis: Upper back mass Post-Operative Diagnosis: Same Surgery/Procedure Performed: Excision upper back mass subfascial 9 x 13 cm esthetician/skin therapist: Yes Shoe Reconditioner: Lily Acosta Tasks completed by special education teaching assistant: Opening & closing and Retracting Type of Anesthesia: General/Supplemental (30 cc of a 50-50 mixture of 1% lidocaine with 1-200,000 epinephrine and quarter percent Marcaine with 1 200,000 epinephrine`) RN Documented Start/Stop Times: Operation Date: 07/05/25 09:30 Case Time Into Pre-Op 07/05/25 06:40 Out of Pre-Op 07/05/25 09:08 Anesthesia Start 07/05/25 09:13 Into Room 07/05/25 09:13 Procedure Start 07/05/25 09:51 Procedure End 07/05/25 10:34 Anesthesia End 07/05/25 10:38 Out of Room 07/05/25 10:38 Into Recovery 07/05/25 10:40 Procedure Start Time: 09:51 Procedure Stop Time: 10:34 Select all DRAINS/GRAFTS/IMPLANTS that apply: None Estimated Blood Loss: 15 cc Specimen collected: Yes Description of specimen(s) removed: Upper back mass Description of surgery: Indications Patient is a delightful 69-year-old male with an upper back mass. Ultrasound demonstrated that it was consistent with a likely lipoma. Presents today for excision. Procedure details Patient was correctly identified and marked in preoperative holding and taken back to the operating room where she is administered general anesthesia and placed in the right lateral decubitus position with an axillary roll with care taken to pad and protect all bony prominences and nerves. He was prepped and draped in sterile fashion and all proper timeouts were performed. 10 blade scalpel was used to make a direct incision over the lipomatous mass with dissection carried out with Bovie electrocautery and a right angle around the mass. It was subfascial beneath the latissimus fascia between the trapezius and the latissimus. The mass was resected in 1 piece and sent to pathology and it measured 9 x 13 cm. The wound was irrigated with copious amounts normal saline and hemostasis was obtained with medium sized clips and with Bovie electrocautery and hemoblast. A 15 Taiwanese Raymond drain was placed. The wound was then closed in layers with 0 PDS deep plication sutures for the fascia and 0 PDS deep Guillermo's fascia sutures followed by 3-0 Monocryl deep dermal sutures and running subcuticular 3-0 Monocryl suture and Prineo tape. The drain was holding suction at the end of the case. Patient tolerated the procedure well and was awakened and taken to the PACU in stable condition. Postoperative plan Follow-up in 3 days for likely drain removal No heavy lifting for 1 month Surgical Findings: Consistent with lipoma Complications Complications: No
--- NOTE | 2025-07-05 10:43 | PCM.POST.ANE ---
Anesthesia: Postop Eval I Current Vital Signs Temperature: 97.6 F Pulse Rate: 65 Blood Pressure: 166/65 Respiratory Rate: 20 Pulse Ox: 100 Oxygen Delivery Method: Room Air Assessment Airway patent: Yes Spontaneous unlabored respirations: Yes Mental status: Awake and Calm nausea: No Vomiting: No Anesthesia Complication: No Fluid Hydration Crystalloid volume administer (ml): 900 Total IV fluid infused: 900 Progress Note Anesthesia document: Postop Eval 1 completed: Yes
--- NOTE | 2025-07-05 13:06 | SUR.PHASEII ---
phase 2, patient and , dami educated on how to strip and empty LIONEL drain. supplies provided. all questions answered. teach back observed.
--- NOTE | 2025-07-05 20:42 | POSTOPAN2_ITS ---
Anesthesia Postop Eval I Sum Postop Eval Completion status Anesthesia document: Postop Eval 1 completed: Yes Anesthesia Postop Eval I Summary Anesthesia Postop Eval I Summary: Anesthesia Postop Eval I: Assessment Summary Airway patent Yes 07/05/25 10:44 [email or web address] Spontaneous unlabored Yes 07/05/25 10:44 [email or web address] respirations Mental status Awake,Calm 07/05/25 10:44 [email or web address] nausea No 07/05/25 10:44 [email or web address] Vomiting No 07/05/25 10:44 [email or web address] Anesthesia Postop Eval I: Fluid Summary Crystalloid volume administer 900 07/05/25 10:44 [email or web address] (ml) Colloids volume administered ( ml) Blood Product volume administered (ml) Total IV fluid infused 900 07/05/25 10:44 [email or web address] Anesthesia Postop Eval I: Summary Notes Anesthesia Complication No 07/05/25 10:44 [email or web address] Anesthesia Complication Comment: Post-operative progress note Anesthesia: Postop Eval II Evaluation Mental status: Awake and Calm Pain Level: 1 nausea: No Vomiting: No Complications Anesthesia Complication: No
--- NOTE | 2025-07-05 20:42 | PCM.POSTANE2 ---
Anesthesia Postop Eval I Sum Postop Eval Completion status Anesthesia document: Postop Eval 1 completed: Yes Anesthesia Postop Eval I Summary Anesthesia Postop Eval I Summary: Anesthesia Postop Eval I: Assessment Summary Airway patent Yes 07/05/25 10:44 FINANCE [email or web address] Spontaneous unlabored Yes 07/05/25 10:44 FINANCE [email or web address] respirations Mental status Awake,Calm 07/05/25 10:44 FINANCE [email or web address] nausea No 07/05/25 10:44 FINANCE [email or web address] Vomiting No 07/05/25 10:44 FINANCE [email or web address] Anesthesia Postop Eval I: Fluid Summary Crystalloid volume administer 900 07/05/25 10:44 FINANCE [email or web address] (ml) Colloids volume administered ( ml) Blood Product volume administered (ml) Total IV fluid infused 900 07/05/25 10:44 FINANCE [email or web address] Anesthesia Postop Eval I: Summary Notes Anesthesia Complication No 07/05/25 10:44 FINANCE [email or web address] Anesthesia Complication Comment: Post-operative progress note Anesthesia: Postop Eval II Evaluation Mental status: Awake and Calm Pain Level: 1 nausea: No Vomiting: No Complications Anesthesia Complication: No
== END 2025-07-05 13:26 | disposition home or self-care (01) ==
LOC: SDC 06:30 → AC 06:32
PROVIDERS: PCP Internal Medicine; Referring Provider Surgery Plastic and Reconstructive Surgery; Visit Provider Surgery Plastic and Reconstructive Surgery
PROC: (CPT 21933; principal; 2025-07-05 09:15)
DX: D17.1 Benign lipomatous neoplasm of skin and subcutaneous tissue of trunk (principal); J44.9 Chronic obstructive pulmonary disease, unspecified; I10 Essential (primary) hypertension; Z87.891 Personal history of nicotine dependence; E78.5 Hyperlipidemia, unspecified; N40.0 Benign prostatic hyperplasia without lower urinary tract symptoms; Z79.82 Long term (current) use of aspirin; Z82.49 Family history of ischemic heart disease and other diseases of the circulatory system; Z86.73 Personal history of transient ischemic attack (TIA), and cerebral infarction without residual deficits; Z99.89 Dependence on other enabling machines and devices
CPT/HCPCS: 21933; 00300; 88304; A4648; J2405

== ENCOUNTER 2025-07-13 10:34 | Day surgery (SDC) | payer MEDICARE, SELFPAY ==
--- NOTE | 2025-07-08 12:50 | PAT.ANE_ITS ---
Pre-Assessment Diagnosis/Proposed Procedure Planned Operative Procedure(s): R) excision of lipoma on forehead and epidermal cyst on right cheek Anesthesia History Anesthesia History - commissioner conservation of resources: Anesthesia History - commissioner conservation of resources Hx Hospitalization No 07/08/25 10:27 Any Problems With Anesthesia No 07/08/25 10:27 Cholinesterase deficiency No 07/08/25 10:27 You/Your Family Experience No 07/08/25 10:27 fever (hyperthermia) with Relationship Recent Exposure to Contagious No 07/05/25 06:48 Disease Does patient have nerve No 07/08/25 10:27 stimulator Patient instructed to have device shut off --Does patient have Pacemaker or ICD? When Was Last Pacemaker Check QUESTION #4 FULL TEXT: You/Your Family Experience fever (hyperthermia) with Anesthesia Last Oral Intake Last Oral intake: Last Oral Intake NPO since Meds taken in AM with sips of water? Meds patient instructed to take am of surgery PONV PONV - commissioner conservation of resources: PONV - commissioner conservation of resources Female No 07/08/25 10:27 HX of Motion Sickness No 07/08/25 10:27 HX of N/V After Surgery No 07/08/25 10:27 Non-Smoker Yes 07/08/25 10:27 Duration of Surgery greater No 07/08/25 10:27 than 60 minutes Number of Risk Factors 1 07/08/25 10:27 PONV Score Low Risk 07/08/25 10:27 Height & Weight Height & Weight: Anesthesia: Height & Weight Height 5 ft 8 in 07/07/25 13:08 Respiratory Assessment Respiratory Assessment - commissioner conservation of resources: Respiratory Tract Infection Hx - commissioner conservation of resources Hx Respiratory Tract Infection No 07/08/25 10:27 STOP Sleep Apnea STOP Sleep Apnea - commissioner conservation of resources: STOP Sleep Apnea - commissioner conservation of resources Hx Hypertension No: ON MEDS 07/08/25 10:27 Hx Sleep Apnea Yes 07/08/25 10:27 CPAP Yes: NON COMPLIANT 07/08/25 10:27 BIPAP No 07/08/25 10:27 Do you snore loudly (louder than talking or can be heard Do you often feel tired/ fatigued/ sleepy during daytime? Has anyone observed you stop breathing during sleep? STOP Results Positive 07/08/25 10:27 QUESTION #5 FULL TEXT : Do you snore loudly (louder than talking or can be heard through closed doors)? 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 Specify any problems Hx of Preganancy in last 3 N/A 07/08/25 10:27 Months Nurse Filling Out Transfusion [email or web address] 07/08/25 10:27 & Questions: Date: 07/08/25 07/08/25 10:27 Time: 10:29 07/08/25 10:27 Patient unable to answer at this time (ie. confused, unrespo /Reproduction History /Reproductive History - commissioner conservation of resources: /Reproductive Hx- commissioner conservation of resources Hx Now No 07/08/25 10:27 Gestational Age (in weeks): EDC: Hx Hx Para Hx Section SAB No 07/08/25 10:27 Does the father of the baby or his family experience fever w Father of the baby Malignant Hypertension history comment [facility] Medical History Wears glasses Complete edentulism, class III Depression Alcohol use Bladder disease Former smoker COPD (chronic obstructive pulmonary disease) CPAP (continuous positive airway pressure) dependence History of echocardiogram History of stress test Cardiology follow-up encounter Lipoma of forehead Epidermal inclusion cyst Subcutaneous mass of back Hypertension Glaucoma 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 CVA (cerebral vascular accident) Peripheral vascular disease Carotid artery stenosis Vitamin D deficiency Enlarged prostate Home Medications ?Medication ?Instructions ?Recorded ?Last Taken ?Type albuterol sulfate 90 mcg/actuation 2 puff inhalation Q 4H PRN PRN 11/14/18 Unknown Rx aerosol inhaler Wheezing ##1 citalopram 40 mg tablet 40 mg PO DAILY depression 10/16/20 History mometasone-formoterol HFA 100 2 puff inhalation BID so b 02/11/20 Unknown History mcg-5 mcg/actuation aerosol inhaler finasteride 5 mg tablet (Proscar) 5 mg PO DAILY Unknown History tamsulosin 0.4 mg capsule (Flomax) 0.4 mg PO QHS 03/17 Unknown History amlodipine 5 mg tablet 5 mg PO DAILY daily #90 tabs 03/29/25 Unknown Rx cholecalciferol (vitamin D3) 125 125 mcg PO QDAY 03/29 Unknown History mcg (5,000 unit) capsule rosuvastatin 40 mg tablet (Crestor) 40 mg PO DAILY #90 tabs 03/29/25 Unknown Rx aspirin 81 mg tablet,delayed 81 mg PO QDAY #90 tabs 06/28/25 Rx release (Adult Aspirin Regimen) oxycodone 5 mg tablet 5 mg PO BID PRN pain 5 days #10 07/05/25 Unknown Rx tabs Allergy/AdvReac Type Severity Reaction Status Date / Time No Known Allergies Allergy Verified 07/08/25 10:22 Family History Mother , MOTHER FROM HEART DISEASE CAD (coronary artery disease) CVA (cerebral vascular accident) Heart disease Brother Hypertension Father , FATHER FROM BLACK LUNG, WORKED IN THE [email or web address] No problems noted. Brother , AT No problems noted. Brother , FROM LUNG CANCER Lung cancer Surgical History Hx of colonoscopy History of endarterectomy History of angioplasty of vein Hx of bilateral cataract extraction (~11/07/22) Carotid artery aneurysm History of left knee surgery History of tonsillectomy Right cornea abrasion History of epidermal inclusion cyst excision Social History Smoking Status: Former smoker how long ago did patient quit smoking: quit 4 months ago alcohol intake: never substance use type: does not use additional social history: pt denies vaping, denies edibles,denies marijuana use, Pt uses aspirin daily pt denies ibuprofen use, denies blood clots Audit: Pertinent Findings Pertinent Findings EKG Perinent findings: 06/02/2025. Normal sinus rhythm. 65 bpm. Consider early transition or posterior infarct. Stress test pertinent findings: 06/07/2025. Negative EF 76%. Echo (EF%) pertinent findings: 06/07/2025. Normal size function EF 65%. Consult pertinent findings: Cardiology 06/02/2025. Peripheral vascular disease. Doing well at this time. Continue current medications. Carotid artery stenosis. Patient has history of coronary artery stenosis. Being monitored by vascular surgeon at [facility]. No changes. Hypertension well-controlled. Preoperative cardiovascular exam. Has echocardiogram and stress test pending. Final clearance after. Recommendation Anesthesia Recommendation Anesthesia recommendation: OPTIMIZED for anesthesia
[2025-07-13] VITALS (8 sets, daily range): BP systolic 109–122; BP diastolic 70–75; PULSE 55–71; RESP 16–20; TEMP 36.3–36.5; O2SAT 97–100; BMI 22.8
[2025-07-13] MEDS: Lactated Ringers 1,000 ML 15 ML IV (10:54)
--- NOTE | 2025-07-13 11:10 | PCM.PRE.AN2 ---
ASA Classification* ASA Classification ASA Classification: 3 Assessment & Plan Anesthesia* Anesthesia Assessment Anesthesia Assessment: Discussed sedation and/or anesthesia options, risks, benefits, and alternatives with patient/parents/legal guardian/POA. Questions invited. The patient/parents/legal guardian/POA seems to understand and agrees to proceed with anesthesia plan. Reviewed the physical assessment, medical history, allergy history and patient home medications list prior to surgery/procedure/anesthetic and documented any changes. Performed airway and anesthesia risk assessments. Anesthesia Type Anesthesia Type: General History Source History Obtained from:: Patient and Chart Anesthesia Focused Assessment* Temperature: 97.4 F Pulse Rate: 71 Blood Pressure: 117/75 Respiratory Rate: 16 Pulse Ox: 97 Oxygen Delivery Method: Room Air Airway Assessment Mouth opens: >3 cm Mallampati Score: II Teeth Condition: Missing Labs Anesthesia Preop lab: CBC WBC, (4.4-11.0) 6.9 K/mm3 03/07/25, 12:52 RBC, (4.6-6.2) 4.27 M/mm3 L 03/07/25, 12:52 Hgb, (13.0-16.5) 14.0 g/dL 03/07/25, 12:52 Hct, (40-54) 41.4 % 03/07/25, 12:52 Plt Count, (150-450) 205 K/mm3 03/07/25, 12:52 CHEMISTRY Potassium, (3.3-5.1) 4.3 mmol/L 03/07/25, 12:52 Sodium, (133-145) 139 mmol/L 03/07/25, 12:52 BUN, (4-19) 15 mg/dL 03/07/25, 12:52 Creatinine, (0.70-1.20) 0.87 mg/dL 03/07/25, 12:52 Glucose, (70-99) 84 mg/dL 03/07/25, 12:52 TSH, (0.358-3.74) 1.06 uIU/mL 02/01/14, 08:25 COAG PT, (11.7-14.9) 13.8 SECONDS 01/25/19, 13:45 Pre-Assessment Diagnosis/Proposed Procedure Planned Operative Procedure(s): R) excision of lipoma on forehead and epidermal cyst on right cheek Anesthesia History Anesthesia History - technical marketing consultant: Anesthesia History - technical marketing consultant Hx Hospitalization No 07/08/25 10:27 Any Problems With Anesthesia No 07/08/25 10:27 Cholinesterase deficiency No 07/08/25 10:27 You/Your Family Experience No 07/08/25 10:27 fever (hyperthermia) with Relationship Recent Exposure to Contagious No 07/13/25 10:55 Disease Does patient have nerve No 07/08/25 10:27 stimulator Patient instructed to have device shut off --Does patient have Pacemaker No 07/13/25 10:55 or ICD? When Was Last Pacemaker Check QUESTION #4 FULL TEXT: You/Your Family Experience fever (hyperthermia) with Anesthesia Last Oral Intake Last Oral intake: Last Oral Intake NPO since 00:00 07/13/25 10:55 Meds taken in AM with sips of No 07/13/25 10:55 water? Meds patient instructed to take am of surgery PONV PONV - technical marketing consultant: PONV - technical marketing consultant Female No 07/08/25 10:27 HX of Motion Sickness No 07/08/25 10:27 HX of N/V After Surgery No 07/08/25 10:27 Non-Smoker Yes 07/08/25 10:27 Duration of Surgery greater No 07/08/25 10:27 than 60 minutes Number of Risk Factors 1 07/08/25 10:27 PONV Score Low Risk 07/08/25 10:27 Height & Weight Height & Weight: Anesthesia: Height & Weight Height 5 ft 8 in 07/13/25 10:55 Weight: 68 kg 07/13/25 10:55 Body Mass Index (BMI) 22.8 07/13/25 10:55 Respiratory Assessment Respiratory Assessment - technical marketing consultant: Respiratory Tract Infection Hx - technical marketing consultant Hx Respiratory Tract Infection No 07/08/25 10:27 STOP Sleep Apnea STOP Sleep Apnea - technical marketing consultant: STOP Sleep Apnea - technical marketing consultant Hx Hypertension No: ON MEDS 07/08/25 10:27 Hx Sleep Apnea Yes 07/08/25 10:27 CPAP Yes: NON COMPLIANT 07/08/25 10:27 BIPAP No 07/08/25 10:27 Do you snore loudly (louder than talking or can be heard Do you often feel tired/ fatigued/ sleepy during daytime? Has anyone observed you stop breathing during sleep? STOP Results Positive 07/08/25 10:27 QUESTION #5 FULL TEXT : Do you snore loudly (louder than talking or can be heard through closed doors)? Tobacco Use History Tobacco Use History - technical marketing consultant: Tobacco Use History - technical marketing consultant Tobacco Use Smoking Status Former smoker 07/08/25 10:27 Hx Tobacco Use No 07/08/25 10:27 Years Smoking Packs Smoked per Day Smoking Cessation Date was Yes - quit smoking within 15 07/08/25 10:27 within the last 15 years years Hx Smoking Cessation Date 12/02/24 07/08/25 10:27 Hx Smoking Cessation No 07/08/25 10:27 Counseling Hematologic Medial History Hematologic Hx - technical marketing consultant: Hematologic Medical Hx - head of mobile Hx of Blood Transfusion No 07/08/25 10:27 Hx of Transfusion in last 3 No 07/08/25 10:27 Months Date of Last Transfusion (if within last 3 months) Ever experience any problems No 07/08/25 10:27 with transfusion(s)? Specify any problems Hx of Preganancy in last 3 N/A 07/08/25 10:27 Months Nurse Filling Out Transfusion JZOLLINGE 07/08/25 10:27 & Questions: Date: 07/08/25 07/08/25 10:27 Time: 10:29 07/08/25 10:27 Patient unable to answer at this time (ie. confused, unrespo /Reproduction History /Reproductive History - technical marketing consultant: /Reproductive Hx- technical marketing consultant Hx Now No 07/08/25 10:27 Gestational Age (in weeks): EDC: Hx Hx Para Hx Section SAB No 07/08/25 10:27 Does the father of the baby or his family experience fever w Father of the baby Malignant Hypertension history comment Active Medications Active Medications: Current Medications Generic Name Dose Route Start Last Admin Trade Name Freq PRN Reason Stop Dose Admin Lactated Ringer's 1,000 mls @ 15 mls/hr 07/13/25 10:45 07/13/25 10:54 IV 15 mls/hr .Q48H SAMMI Administration PFSH Medical History Wears glasses Complete edentulism, class III Depression Alcohol use Bladder disease Former smoker COPD (chronic obstructive pulmonary disease) CPAP (continuous positive airway pressure) dependence History of echocardiogram History of stress test Cardiology follow-up encounter Lipoma of forehead Epidermal inclusion cyst Subcutaneous mass of back Hypertension Glaucoma 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 CVA (cerebral vascular accident) Peripheral vascular disease Carotid artery stenosis Vitamin D deficiency Enlarged prostate Home Medications ?Medication ?Instructions ?Recorded ?Last Taken ?Type albuterol sulfate 90 mcg/actuation 2 puff inhalation Q4H PRN PRN 11/14/18 Unknown Rx aerosol inhaler Wheezing ##1 citalopram 40 mg tablet 40 mg PO DAILY depression 02/11/20 07/12/25 History mometasone-formoterol HFA 100 2 puff inhalation BID sob 02/11/20 07/12/25 History mcg-5 mcg/actuation aerosol inhaler finasteride 5 mg tablet (Proscar) 5 mg PO DAILY 03/17/24 07/12/25 History tamsulosin 0.4 mg capsule (Flomax) 0.4 mg PO QHS 03/17/24 07/12/25 History amlodipine 5 mg tablet 5 mg PO DAILY daily #90 tabs 03/29/25 07/12/25 Rx cholecalciferol (vitamin D3) 125 125 mcg PO QDAY 03/29/25 07/12/25 History mcg (5,000 unit) capsule rosuvastatin 40 mg tablet (Crestor) 40 mg PO DAILY #90 tabs 03/29/25 07/12/25 Rx aspirin 81 mg tablet,delayed 81 mg PO QDAY #90 tabs 06/02/25 07/11/25 Rx release (Adult Aspirin Regimen) oxycodone 5 mg tablet 5 mg PO BID PRN pain 5 days #10 07/05/25 Unknown Rx tabs Allergy/AdvReac Type Severity Reaction Status Date / Time No Known Allergies Allergy Verified 07/13/25 10:38 Family History Mother , MOTHER FROM HEART DISEASE CAD (coronary artery disease) CVA (cerebral vascular accident) Heart disease Brother Hypertension Father , FATHER FROM BLACK LUNG, WORKED IN THE [employer] No problems noted. Brother , AT No problems noted. Brother , FROM LUNG CANCER Lung cancer Surgical History Hx of colonoscopy History of endarterectomy History of angioplasty of vein Hx of bilateral cataract extraction (~11/07/22) Carotid artery aneurysm History of left knee surgery History of tonsillectomy Right cornea abrasion History of epidermal inclusion cyst excision Social History Smoking Status: Former smoker how long ago did patient quit smoking: quit 4 months ago alcohol intake: never substance use type: does not use additional social history: pt denies vaping, denies edibles,denies marijuana use, Pt uses aspirin daily pt denies ibuprofen use, denies blood clots Prior Cardiac Testing/Procedures Prior Cardiac Testing/Procedures: Echocardiogram (65%) Addt'l Information Additional Findings: NSR on EKG; > 4 Mets Review of Systems (Anesthesia) ROS Narrative System reviewed and no additional complaints, except as documented.
--- NOTE | 2025-07-13 12:15 | LIP_PTH ---
PATIENT: XANDER GOMEZ LOC: [facility] [place] U#:[id number] AGE/SX: 70/M ROOM: RE07/13/[address]: Dr. Conner Thorne MD : 1955 BED: DIS: 07/13/2025 SPEC #: [id number] RECD: 07/13/25 14:36 STATUS: MICAH RERyan #: [id number] MARCUS: 07/13/25 12:[address]: Conner Thorne DEPT: SURGICAL PATHOLOGY RECD BY: Chris Head ENTERED: 07/13/25 15:30 SP TYPE: LIPOMA OTHR DR: Dr. Carli Shell MD Tissues: A - Soft tissues, NOS B - Cheek, NOS Procedures: Surgery Specimen Level III Surgery Specimen Level IV HEADER OPERATION: Excision of lipoma of forehead and epidermal cyst on right cheek PRE-OP DIAGNOSIS: Epidermal inclusion cyst, lipoma of forehead TISSUE SUBMITTED: A- Forehead lipoma, B- Right cheek cysts MICROSCOPIC DIAGNOSIS A. Soft tissue, forehead, excision: - Mature adipose consistent with lipoma. B. Soft tissue, right cheek, cysts, excision: - Epidermal inclusion cyst, multiple fragments. - Focal sebaceous hyperplasia. MICROSCOPIC DESCRIPTION Slides are reviewed. GROSS DESCRIPTION Received in 2 formalin containers labeled with the patient's name and date of . Designated as: A. Forehead lipoma is a 1.8 x 1.7 x 0.5 cm peña-yellow portion of soft tissue, devoid of orientation. Sectioning reveals yellow, homogenous cut surfaces. Entirely submitted in 1 cassette. B. Right cheek cysts are multiple pink-peña red to brown-gorman tissue fragments, collectively measuring 1.6 x 1.0 x 0.2 cm in aggregate. Entirely submitted in 1 cassette. LA 07/13/2025PT:[id number]
--- NOTE | 2025-07-13 12:34 | PCM.HP.STD ---
HPI - General HPI Narrative XANDER GOMEZ, is a 70 M who presents today for left forehead and right cheek cysts lesion. He has been remaining on his aspirin 81mg as instructed by his PCP. He recently underwent back lipoma excision and is healing well without issues. Prineo still in place. Denies fever, chills, nausea, vomiting, URI, dental infections. HPI from 05/20/25: Patient is a 69-year-old male presenting today with his and cheek, left forehead and left upper back patient. He is a former patient of Dr. Woodall's and had several lesions drained many years ago. He denies drainage from any of the lesions. He noticed the lump on his back has been growing bigger and makes it uncomfortable to lay on it. He has history of hypertension, hyperlipidemia, carotid artery disease s/p left and right CEA, severe peripheral vascular disease. He take aspirin daily, not on any other antiplatelets or blood thinners. He denies diabetes, poor scarring or keloid formation. He's a former smoker, hx of carotid stenosis. Denies fever, chills, unintentional weight loss, lymph node swelling. 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 CVA (cerebral vascular accident) Peripheral vascular disease Carotid artery stenosis Vitamin D deficiency Enlarged prostate Home Medications ?Medication ?Instructions ?Recorded ?Last Taken ?Type albuterol sulfate 90 mcg/actuation 2 puff inhalation Q4H PRN PRN 11/14/18 Unknown Rx aerosol inhaler Wheezing ##1 citalopram 40 mg tablet 40 mg PO DAILY depression 02/11/20 07/12/25 History mometasone-formoterol HFA 100 2 puff inhalation BID sob 02/11/20 07/12/25 History mcg-5 mcg/actuation aerosol inhaler finasteride 5 mg tablet (Proscar) 5 mg PO DAILY 03/17/24 07/12/25 History tamsulosin 0.4 mg capsule (Flomax) 0.4 mg PO QHS 03/17/24 07/12/25 History amlodipine 5 mg tablet 5 mg PO DAILY daily #90 tabs 03/29/25 07/12/25 Rx cholecalciferol (vitamin D3) 125 125 mcg PO QDAY 03/29/25 07/12/25 History mcg (5,000 unit) capsule rosuvastatin 40 mg tablet (Crestor) 40 mg PO DAILY #90 tabs 03/29/25 07/12/25 Rx aspirin 81 mg tablet,delayed 81 mg PO QDAY #90 tabs 06/02/25 07/11/25 Rx release (Adult Aspirin Regimen) oxycodone 5 mg tablet 5 mg PO BID PRN pain 5 days #10 07/05/25 Unknown Rx tabs Allergy/AdvReac Type Severity Reaction Status Date / Time No Known Allergies Allergy Verified 07/13/25 10:38 Family History Mother , MOTHER FROM HEART DISEASE CAD (coronary artery disease) CVA (cerebral vascular accident) Heart disease Brother Hypertension Father , FATHER FROM BLACK LUNG, WORKED IN THE [employer] No problems noted. Brother , AT No problems noted. Brother , FROM LUNG CANCER Lung cancer Surgical History Hx of colonoscopy History of endarterectomy History of angioplasty of vein Hx of bilateral cataract extraction (~11/07/22) Carotid artery aneurysm History of left knee surgery History of tonsillectomy Right cornea abrasion History of epidermal inclusion cyst excision Social History Smoking Status: Former smoker how long ago did patient quit smoking: quit 4 months ago alcohol intake: never substance use type: does not use additional social history: pt denies vaping, denies edibles,denies marijuana use, Pt uses aspirin daily pt denies ibuprofen use, denies blood clots ROS ROS Narrative General: Denies fever, chills HEENT: Denies headaches, vision changes, sore throat Cardio: Denies chest pain, leg edema Pulmonary: Denies shortness of pain, cough, wheezing GI: Denies nausea, vomiting, diarrhea Vital Signs Vital Signs Vital Signs: 07/13/25 10:55 07/13/25 10:55 07/13/25 10:55 Temperature 97.4 F L Temperature Source Temporal Pulse Rate 71 Respiratory Rate 16 Respiratory Pattern Normal Blood Pressure 117/75 Blood Pressure Mean 89 Blood Pressure Source Monitor Blood Pressure Position Semi-Fowlers Blood Pressure Location Left Arm Baseline BP 117/75 Pulse Ox 97 Oxygen Delivery Method Room Air 07/13/25 11:12 Temperature 97.4 F L Temperature Source Pulse Rate 71 Respiratory Rate 16 Respiratory Pattern Blood Pressure 117/75 Blood Pressure Mean Blood Pressure Source Blood Pressure Position Blood Pressure Location Baseline BP Pulse Ox 97 Oxygen Delivery Method Room Air Weight Weight: 149 lb 14.629 oz Body Mass Index (BMI) 22.8 Physical Exam Narrative Head: No facial asymmetry, open and closes eyes, raises eyebrow. Sensation intact to light touch. Right cheek 1cm by 1cm epiderm inclusion cyst with black punctum, no drainage Left forehead mobile, nontender, well circumscribed soft [id number] mass Left upper back incision prineo intact, no fluid collection, no dehiscese or infection. Assessment & Plan Assessment/Plan (1) Epidermal inclusion cyst: (2) Lipoma of forehead: PLAN: Plan Plan for excision and dc same day.
[2025-07-13] MEDS: Lactated Ringers 1,000 ML 1000 ML IV (13:22)
[2025-07-13] MEDS: Midazolam 2 MG/2 ML Syringe IV (13:22)
[2025-07-13] MEDS: Cefazolin 1 GM/5 ML Vial 2 GM IV (13:25)
[2025-07-13] MEDS: Lidocaine 1% (5 ml sdv) 5 ML Vial 4 ML IV (13:31)
[2025-07-13] MEDS: Povidone Iodine 30 ML Opthalmic Sol 1 DRP (13:32)
[2025-07-13] MEDS: Lidocaine 1% /Epi 1:100 (20ml) 20 ML Vial (13:35)
[2025-07-13] MEDS: Bupiv/Epi 0.25% 30 ML Vial (13:35)
[2025-07-13] MEDS: Bacitracin 500 UNITS/GM PACKET (14:06)
[2025-07-13] MEDS: fentaNYL 100 MCG/2 ML Ampul IV (14:07)
--- NOTE | 2025-07-13 14:18 | PCM.POST.ANE ---
Anesthesia: Postop Eval I Current Vital Signs Temperature: 97.7 F Pulse Rate: 58 Blood Pressure: 111/70 Respiratory Rate: 20 Pulse Ox: 97 Oxygen Delivery Method: Room Air Assessment Airway patent: Yes Spontaneous unlabored respirations: Yes Mental status: Awake and Calm nausea: No Vomiting: No Anesthesia Complication: No Fluid Hydration Crystalloid volume administer (ml): 600 Total IV fluid infused: 600 Progress Note Anesthesia document: Postop Eval 1 completed: Yes
--- NOTE | 2025-07-13 14:31 | POSTOPAN2_ITS ---
Anesthesia Postop Eval I Sum Postop Eval Completion status Anesthesia document: Postop Eval 1 completed: Yes Anesthesia Postop Eval I Summary Anesthesia Postop Eval I Summary: Anesthesia Postop Eval I: Assessment Summary Airway patent Yes 07/13/25 14:19 COMMUNITY [email or web address] Spontaneous unlabored Yes 07/13/25 14:19 COMMUNITY SERVICE [email or web address] respirations Mental status Awake,Calm 07/13/25 14:19 COMMUNITY SERVICE [email or web address] nausea No 07/13/25 14:19 COMMUNITY SERVICE [email or web address] Vomiting No 07/13/25 14:19 COMMUNITY SERVICE [email or web address] Anesthesia Postop Eval I: Fluid Summary Crystalloid volume administer 600 07/13/25 14:19 COMMUNITY SERVICE [email or web address] (ml) Colloids volume administered ( ml) Blood Product volume administered (ml) Total IV fluid infused 600 07/13/25 14:19 COMMUNITY SERVICE [email or web address] Anesthesia Postop Eval I: Summary Notes Anesthesia Complication No 07/13/25 14:19 COMMUNITY SERVICE [email or web address] Anesthesia Complication Comment: Post-operative progress note Anesthesia: Postop Eval II Evaluation Mental status: Awake and Calm Pain Level: 1 nausea: No Vomiting: No Complications Anesthesia Complication: No
--- NOTE | 2025-07-13 14:31 | PCM.POSTANE2 ---
Anesthesia Postop Eval I Sum Postop Eval Completion status Anesthesia document: Postop Eval 1 completed: Yes Anesthesia Postop Eval I Summary Anesthesia Postop Eval I Summary: Anesthesia Postop Eval I: Assessment Summary Airway patent Yes 07/13/25 14:19 [email or web address] Spontaneous unlabored Yes 07/13/25 14:19 [email or web address] respirations Mental status Awake,Calm 07/13/25 14:19 [email or web address] nausea No 07/13/25 14:19 [email or web address] Vomiting No 07/13/25 14:19 [email or web address] Anesthesia Postop Eval I: Fluid Summary Crystalloid volume administer 600 07/13/25 14:19 [email or web address] (ml) Colloids volume administered ( ml) Blood Product volume administered (ml) Total IV fluid infused 600 07/13/25 14:19 [email or web address] Anesthesia Postop Eval I: Summary Notes Anesthesia Complication No 07/13/25 14:19 [email or web address] Anesthesia Complication Comment: Post-operative progress note Anesthesia: Postop Eval II Evaluation Mental status: Awake and Calm Pain Level: 1 nausea: No Vomiting: No Complications Anesthesia Complication: No
--- NOTE | 2025-07-13 14:55 | OP.PCM_ITS ---
Operative Report (Standard) Operative Information Date of Procedure: 07/13/25 Pre-Operative Diagnosis: Left upper forehead lipoma Right cheek cyst x 3(inclusion cysts) Post-Operative Diagnosis: Same Surgery/Procedure Performed: 1) excision left upper forehead lipoma, 1.5 x 1.5 cm 2) excision of right cheek epidermal inclusion cyst x 3, all of which were 0.5 x 0.5 cm route cdl driver: Yes Digital Camera Technician: Lily Acosta Tasks completed by asset protection assistant: Dissecting tissue and Retracting Type of Anesthesia: MAC/Supplemental (4 cc of a 50-50 mixture of quarter percent Marcaine with 1-200,000 epinephrine and 1% lidocaine with 1-200,000 epinephrine) RN Documented Start/Stop Times: Operation Date: 07/13/25 12:15 Case Time Into Pre-Op 07/13/25 10:40 Anesthesia Start 07/13/25 13:22 Into Room 07/13/25 13:22 Procedure Start 07/13/25 13:40 Procedure End 07/13/25 14:07 Anesthesia End 07/13/25 14:11 Out of Room 07/13/25 14:11 Into Recovery 07/13/25 14:13 Out of Recovery 07/13/25 14:31 Into Phase II Recovery 07/13/25 14:32 Procedure Start Time: 13:40 Procedure Stop Time: 14:07 Select all DRAINS/GRAFTS/IMPLANTS that apply: None Estimated Blood Loss: 5 cc Specimen collected: Yes Description of specimen(s) removed: Left upper forehead lipoma and right cheek epidermal inclusion cysts Description of surgery: Indications: Patient has a likely lipoma in the left forehead and 3 right cheek cyst that he wants removed. Presents today for this procedure and understands the risks, benefits, and alternatives to procedure. Procedure details: Patient was correct identified in preoperative holding and marked and taken back to the operating room he was administered sedation and the above-noted local anesthesia and prepped and draped in sterile fashion with a proper timeout. 15 blade scalpel was used to make an incision directly over the left upper forehead lipoma and care was taken to dissected carefully through the subcu taneous tissues and the underlying frontalis muscle/fascia to the lipoma (with care taken to preserve cutaneous sensory nerves through gentle longitudinal spreading). Hemostasis was obtained with Bovie electrocautery and the lipoma was removed in 1 piece and measured 1.5 x 1.5 cm and was sent to pathology. The wound was irrigated with copious amounts normal saline and then closed in layers using 4-0 Monocryl deep dermal sutures followed by 4-0 Monocryl running subcuticular suture. Steri-Strips were applied. Attention was then turned to the right malar cheek where three 0.5 x 0.5 cm subcutaneous malar cheek epidermal inclusion cysts were excised full-thickness with care taken to excise the entire capsule around the epidermal inclusion cysts and send them to pathology. The wounds were irrigated with copious amounts normal saline and hemostasis obtained with Bovie electrocautery. The 3 wounds were then closed with interrupted 4-0 Monocryl top sutures and bacitracin. Patient tolerated procedure well and was awakened and taken to the PACU in stable condition. Postoperative plan: Follow-up in 1 week for wound check and to review pathology Surgical Findings: Consistent with left upper forehead lipoma and right cheek epidermal inclusion cyst Complications Complications: No
== END 2025-07-13 15:10 | disposition home or self-care (01) ==
LOC: SDC 10:35 → AC 10:36
PROVIDERS: PCP Internal Medicine; Referring Provider Surgery Plastic and Reconstructive Surgery; Visit Provider Surgery Plastic and Reconstructive Surgery
PROC: (CPT 11442; principal; 2025-07-13 12:00)
DX: D17.0 Benign lipomatous neoplasm of skin and subcutaneous tissue of head, face and neck (principal); J44.9 Chronic obstructive pulmonary disease, unspecified; L72.0 Epidermal cyst; E78.5 Hyperlipidemia, unspecified; Z87.891 Personal history of nicotine dependence; I10 Essential (primary) hypertension; Z79.82 Long term (current) use of aspirin; I73.9 Peripheral vascular disease, unspecified; Z79.899 Other long term (current) drug therapy; Z86.018 Personal history of other benign neoplasm
CPT/HCPCS: 11442; 12051; 11440; 00300; 88304; 88305; J2405